=== PATIENT | male | born 1955 | race American Indian/Alaskan Native ===

== ENCOUNTER 2018-01-02 17:45 | Inpatient (IN) | payer OTHER ==
[2018-01-02 18:18] LABS: Anisocytosis Slight; Basophils % (A) 0 %; Eosinophils # (A) 1.1 k/uL (0-0.7); Eosinophils % (A) 12 %; HCT 25.8 % (39.0-53.0); HGB 8.1 gm/dL (13.0-17.5); Hypochromasia Moderate; Lymphocytes # (A) 1.3 k/uL (1.0-4.8); Lymphocytes % (A) 15 %; MCH 27.3 pg (25.0-35.0); MCHC 31.2 g/dL (31.0-37.0); MCV 87.5 fL (80.0-100.0); Mean Platelet Volume 10.1; Monocytes # (A) 0.7 k/uL (0-1.0); Monocytes % (A) 8 %; Neutrophils # (A) 5.4 k/uL (1.3-7.7); Neutrophils % (A) 63 %; Platelet Count 124 k/uL (150-450); RBC 2.95 m/uL (4.30-5.90); RDW 16.3 % (11.5-15.5); WBC 8.7 k/uL (3.8-10.6)
[2018-01-02 18:28] LABS: Albumin 3.1 g/dL (3.5-5.0); Total Bilirubin 0.2 mg/dL (0.2-1.3)
--- NOTE | 2018-01-02 18:33 | ED ---
Recheck HPI - General Chief Complaint: Recheck/Abnormal Lab/Rx Stated Complaint: Abnormal Labs Time Seen by Provider: 01/02/18 18:21 Source: patient Mode of arrival: ambulatory Limitations: no limitations - History of Present Illness Initial Comments: Is a 62-year-old male with a history of hypertension or presents emergency department for abnormal lab work. The patient states that he had laboratory performed yesterday and was called today because he had a high potassium. The patient states that he has had worsening lower extremity edema over the last few weeks to months. He states that the lower chrie edema is chronic however feels like it is getting worse. He does admit to some difficulty with urination and a slowed and delayed stream. He states that he is urinating however. He has been compliant with his medications. He denies any chest pain or shortness of breath. No lightheadedness. No palpitations. No other acute complaints at this time. - Related Data Allergies Allergy/AdvReac Type Severity Reaction Status Date / Time No Known Allergies Allergy Verified 01/02/18 19:24 Review of Systems ROS Statement: Those systems with pertinent positive or pertinent negative responses have been documented in the HPI. ROS Other: All systems not noted in ROS Statement are negative. Past Medical History Past Medical History: Hypertension Past Surgical History: No Surgical Hx Reported Smoking Status: Former smoker Past Alcohol Use History: Occasional General Exam - General Exam Comments Initial Comments: Constitutional: Awake alert Appears comfortable Head: Normocephalic atraumatic Eyes: no conjunctival injection No scleral icterus EOMI Neck: No JVD Supple Heart: Regular rate rhythm normal S1-S2 no murmurs Lungs: Clear to auscultation bilaterally No wheezing No rales Abdomen: Soft nondistended nontender Extremities: Lower extremity has pitting edema up to the knee, left lower extremity has mild pitting edema however is less then the right DP pulses intact Radial pulses intact Neuro: A&Ox3 No focal neurologic deficits Psych: Appropriate mood and affect Limitations: no limitations Course Vital Signs 01/02/18 01/02/18 17:46 19:15 Temperature 97.3 F L Pulse Rate 61 68 Respiratory 18 20 Rate Blood Pressure 142/69 139/65 O2 Sat by Pulse 99 99 Oximetry Medical Decision Making - Medical Decision Making Is a 62-year-old male who came in for elevated potassium. Repeat blood work showed a potassium 6.2 and a creatinine of 7. No baseline is noted. The patient does have lower chrie edema however had negative Dopplers this morning. The patient does have evidence for hyperkalemia on his EKG. He has some peaking of his T waves. Otherwise no other findings on his EKG. Patient was given calcium, insulin, and D50. I spoke with Dr. Bains about the patient and he accepts the admission. I did send out urine studies and also put in a ultrasound of the kidneys per Dr. Bains''s request. He also requested that nephrology be placed on consult. - Lab Data Result diagrams: 01/02/18 18:04 01/02/18 18:04 Lab Results 01/02/18 01/02/18 01/02/18 Range/Units 18:04 18:04 18:04 WBC 8.7 (3.8-10.6) k/uL RBC 2.95 L (4.30-5.90) m/uL Hgb 8.1 L (13.0-17.5) gm/dL Hct 25.8 L (39.0-53.0) % MCV 87.5 (80.0-100.0) fL MCH 27.3 (25.0-35.0) pg MCHC 31.2 (31.0-37.0) g/dL RDW 16.3 H (11.5-15.5) % Plt Count 124 L (150-450) k/uL Neutrophils % 63 % Lymphocytes % 15 % Monocytes % 8 % Eosinophils % 12 % Basophils % 0 % Neutrophils # 5.4 (1.3-7.7) k/uL Lymphocytes # 1.3 (1.0-4.8) k/uL Monocytes # 0.7 (0-1.0) k/uL Eosinophils # 1.1 H (0-0.7) k/uL Basophils # 0.0 (0-0.2) k/uL Hypochromasia Moderate Anisocytosis Slight VBG pH (7.31-7.41) VBG pCO2 (37-51) mmHg VBG HCO3 (24-28) mmol/L Sodium 143 (137-145) mmol/L Potassium 6.2 H* (3.5-5.1) mmol/L Chloride 112 H (98-107) mmol/L Carbon Dioxide 12 L (22-30) mmol/L Anion Gap 19 mmol/L BUN 115 H* (9-20) mg/dL Creatinine 7.36 H* (0.66-1.25) mg/dL Est GFR (CKD-EPI)AfAm 8 (>60 ml/min/1.73 sqM) Est GFR (CKD-EPI)NonAf 7 (>60 ml/min/1.73 sqM) Glucose 110 H (74-99) mg/dL Calcium 6.2 L* (8.4-10.2) mg/dL Magnesium 2.7 H (1.6-2.3) mg/dL Total Bilirubin 0.2 (0.2-1.3) mg/dL AST 26 (17-59) U/L ALT 37 (21-72) U/L Alkaline Phosphatase 113 (38-126) U/L Total Protein 5.0 L (6.3-8.2) g/dL Albumin 3.1 L (3.5-5.0) g/dL 01/02/18 Range/Units 19:05 WBC (3.8-10.6) k/uL RBC (4.30-5.90) m/uL Hgb (13.0-17.5) gm/dL Hct (39.0-53.0) % MCV (80.0-100.0) fL MCH (25.0-35.0) pg MCHC (31.0-37.0) g/dL RDW (11.5-15.5) % Plt Count (150-450) k/uL Neutrophils % % Lymphocytes % % Monocytes % % Eosinophils % % Basophils % % Neutrophils # (1.3-7.7) k/uL Lymphocytes # (1.0-4.8) k/uL Monocytes # (0-1.0) k/uL Eosinophils # (0-0.7) k/uL Basophils # (0-0.2) k/uL Hypochromasia Anisocytosis VBG pH 7.19 L* (7.31-7.41) VBG pCO2 36 L (37-51) mmHg VBG HCO3 13 L (24-28) mmol/L Sodium (137-145) mmol/L Potassium (3.5-5.1) mmol/L Chloride (98-107) mmol/L Carbon Dioxide (22-30) mmol/L Anion Gap mmol/L BUN (9-20) mg/dL Creatinine (0.66-1.25) mg/dL Est GFR (CKD-EPI)AfAm (>60 ml/min/1.73 sqM) Est GFR (CKD-EPI)NonAf (>60 ml/min/1.73 sqM) Glucose (74-99) mg/dL Calcium (8.4-10.2) mg/dL Magnesium (1.6-2.3) mg/dL Total Bilirubin (0.2-1.3) mg/dL AST (17-59) U/L ALT (21-72) U/L Alkaline Phosphatase (38-126) U/L Total Protein (6.3-8.2) g/dL Albumin (3.5-5.0) g/dL Disposition Clinical Impression: Acute renal failure, Hyperkalemia, Hypocalcemia Disposition: ADMITTED IP TO THIS [facility] Condition: Stable
[2018-01-02 18:40] LABS: Potassium 6.2 mmol/L (3.5-5.1)
[2018-01-02 18:41] LABS: Calcium 6.2 mg/dL (8.4-10.2)
[2018-01-02] MEDS ORDERED: CALCIUM GLUCONATE 1,000 MG in SODIUM CHLORIDE 0.9% 100 ML IVPB ONE (18:46)
[2018-01-02] MEDS ORDERED: DEXTROSE 50%-WATER 50 ML SYRINGE IVP STA ×2 (18:46→20:38)
[2018-01-02] MEDS ORDERED: INSULIN REGULAR 100 UNIT/ML VIAL IV ONE (18:46)
[2018-01-02] MEDS ORDERED: NALOXONE 0.4 MG/ML 1 ML VIAL IV PRN (19:11)
[2018-01-02] MEDS: SODIUM CHLORIDE 0.9% 1,000 ML IV SCH (19:15)
[2018-01-02 19:20] LABS: VBG PH 7.19 (7.31-7.41)
[2018-01-02 19:42] LABS: Appearance,Urine Clear (Clear); Bacteria,Urine Rare /hpf; Bilirubin,Urine Negative (Negative); Blood,Urine Small (Negative); Color,Urine Light Yellow; Glucose,Urine (UA) Negative (Negative); Ketones,Urine Negative (Negative); Leukocyte Esterase,Urine Negative (Negative); Nitrite,Urine Negative (Negative); PH, Urine 5.5 (5.0-8.0); Protein,Urine 3+ (Negative); RBC,Urine 8 /hpf (0-5); Specific Gravity,Urine 1.008 (1.001-1.035); Urobilinogen,Urine <2.0 mg/dL (<2.0); WBC,Urine 4 /hpf (0-5)
[2018-01-02 19:49] LABS: Creatinine,Urine Random 62.7 mg/dL
--- NOTE | 2018-01-02 20:54 | US ---
EXAMINATION TYPE: US kidneys/renal and bladder DATE OF EXAM: 01/02/2018 COMPARISON: NONE CLINICAL HISTORY: Pain. Abnormal labs. Exam limited due to body habitus and barrel chested. EXAM MEASUREMENTS: Right Kidney: 9.5 x 4.8 x 5.4 cm Left Kidney: 9.1 x 4.6 x 5.2 cm Right Kidney: Anechoic area seen mid pole measuring .9 x .8 x 1.3cm. Left Kidney: Anechoic area seen lower pole measuring 2.3 x 2.3 x 2.2 cm Bladder: Anechoic not fully distended. Bilateral Jets seen: No There is no evidence for hydronephrosis at this point in time. No nephrolithiasis is seen. The urin leonides bladder is anechoic. IMPRESSION: No acute process.
[2018-01-02 21:09] LABS: Glucose,Whole Blood 145 mg/dL (75-99)
[2018-01-02 21:09] LABS: Glucose,Whole Blood 40 mg/dL (75-99)
[2018-01-02 21:40] LABS: Glucose,Whole Blood 112 mg/dL (75-99)
[2018-01-02] MEDS: METOPROLOL TARTRATE 50 MG TAB PO SCH (22:00)
[2018-01-03 06:11] LABS: Anisocytosis Slight; Basophils % (A) 0 %; Eosinophils # (A) 1.1 k/uL (0-0.7); Eosinophils % (A) 13 %; HCT 24.5 % (39.0-53.0); HGB 7.4 gm/dL (13.0-17.5); Hypochromasia Moderate; Lymphocytes % (A) 11 %; MCH 26.8 pg (25.0-35.0); MCHC 30.2 g/dL (31.0-37.0); MCV 88.9 fL (80.0-100.0); Mean Platelet Volume 9.2; Monocytes # (A) 0.6 k/uL (0-1.0); Monocytes % (A) 6 %; Neutrophils # (A) 5.8 k/uL (1.3-7.7); Neutrophils % (A) 67 %; Platelet Count 113 k/uL (150-450); RBC 2.75 m/uL (4.30-5.90); RDW 16.3 % (11.5-15.5); WBC 8.6 k/uL (3.8-10.6)
[2018-01-03] MEDS: SODIUM CHLORIDE 0.9% 1,000 ML IV SCH (06:24)
[2018-01-03 06:29] LABS: Magnesium 2.4 mg/dL (1.6-2.3)
[2018-01-03 06:51] LABS: Calcium 5.7 mg/dL (8.4-10.2); Phosphorus 9.1 mg/dL (2.5-4.5)
[2018-01-03] MEDS ORDERED: SODIUM POLYSTYRENE SULFONATE 15 GM/60 ML BOTTLE PO STA (06:58)
[2018-01-03] MEDS ORDERED: DEXTROSE 50%-WATER 50 ML SYRINGE IVP STA (06:58)
[2018-01-03] MEDS ORDERED: CALCIUM GLUCONATE 2,000 MG in SODIUM CHLORIDE 0.9% 100 ML IVPB ONE (06:58)
[2018-01-03] MEDS ORDERED: INSULIN REGULAR 100 UNIT/ML VIAL IV ONE (06:58)
[2018-01-03] MEDS ORDERED: ALBUTEROL NEBULIZED (CONC) 20 MG, SODIUM CHLORIDE 0.9% NEBULIZ 3 ML INHALATION ONE ×2 (06:59)
[2018-01-03] MEDS ORDERED: DEXTROSE 5% IN WATER 1,000 ML with SODIUM BICARB (1 MEQ/ML) 100 ML IV SCH (07:00)
[2018-01-03 08:16] LABS: Glucose,Whole Blood 100 mg/dL (75-99)
[2018-01-03 08:21] LABS: Glucose,Whole Blood 94 mg/dL (75-99)
--- NOTE | 2018-01-03 08:54 | P.CNPUL ---
History of Present Illness Consult date: 01/03/18 Requesting physician: Estrellita Bains Reason for consult: other Chief complaint: Increased peripheral edema, hyperkalemia, acute renal failure History of present illness: Mr. Toscano is a 62-year-old male patient Dr. Bains, who presented to the emergency department on 01/02/2018 at 1745 with complaints of increasing bilateral lower extremity edema, decreased urination. Patient had lab work performed yesterday and was called with critically high potassium, was directed to the emergency department. Patient had seen Dr. Bains on an outpatient basis for concerns of his increased lower extremity edema, and was given Lasix, however his swelling getting worse. Has a past medical history of hypertension and the patient is on metoprolol, losartan, and Norvasc. Denies any history of diabetes. Denies any history of lower urinary tract obstruction. He states in the past his been told he has renal insufficiency. He is an ex-smoker, quit 2 weeks ago, carries [id number] smoking history. Denies any nausea vomiting or diarrhea. Denies any chest pain or shortness of breath. Lab work showed the BCC of 8.7, hemoglobin of 8.1, sodium 143, potassium 6.2, chloride is 112, carbon dioxide was 12, BUN was 115, creatinine is 7.36. Serum osmolality is 345 , urine osmolality was 347, urine random creatinine was 62.7, and urine sodium was 80. Patient was given calcium gluconate, amp of D50, 10 units of Regular Insulin, and Kayexalate. Repeat blood work showed persistently elevated potassium of 7.0, BUN of 114, and creatinine of 7.0. Patient will be treated again with amp of calcium gluconate, D50, regular insulin, and Kayexalate. Maintenance IV fluids as D5W with 2 A of bicarb at a rate of 125 ML per hour. He is awake, alert, denies any acute distress. His son is at the bedside, and is assisting with patient's history, as well as some translation from Faroese. Patient does speak Swedish and only needs some limited assistance with the translation. Review of Systems All systems: negative Constitutional: Denies chills, Denies fever Eyes: right loss of vision (History of glaucoma), denies blurred vision, denies pain Ears, nose, mouth and throat: Denies headache, Denies sore throat Cardiovascular: Reports edema, Reports leg edema, Denies chest pain, Denies shortness of breath Respiratory: Denies cough Gastrointestinal: Denies abdominal pain, Denies diarrhea, Denies nausea, Denies vomiting Musculoskeletal: Denies myalgias Integumentary: Denies pruritus, Denies rash Neurological: Denies numbness, Denies weakness Psychiatric: Denies anxiety, Denies depression Endocrine: Denies fatigue, Denies weight change Past Medical History Past Medical History: GI Bleed, Hypertension Additional Past Medical History / Comment(s): History of H. pylori infection, and gastric ulcers, back in 1991 and the patient had been treated with triple antibiotics. Glaucoma in the right eye Past Surgical History: No Surgical Hx Reported Smoking Status: Former smoker Past Alcohol Use History: Occasional Medications and Allergies Home Medications Medication Instructions Recorded Confirmed Type Aspirin EC [Ecotrin Low Dose] 81 mg PO DAILY 01/02/18 01/02/18 History Furosemide [Lasix] 40 mg PO DAILY 01/02/18 01/02/18 History Losartan Potassium 100 mg PO DAILY 01/02/18 01/02/18 History Metoprolol Tartrate [Lopressor] 50 mg PO BID 01/02/18 01/02/18 History Ranitidine HCl [Zantac] 75 mg PO DAILY PRN 01/02/18 01/02/18 History amLODIPine BESYLATE [Norvasc] 10 mg PO DAILY 01/02/18 01/02/18 History Allergies Allergy/AdvReac Type Severity Reaction Status Date / Time No Known Allergies Allergy Verified 01/02/18 19:24 Physical Exam Vitals: Vital Signs Temp Pulse Pulse Resp BP BP Pulse Ox 01/03/18 04:00 98.5 F 58 L 16 144/67 98 01/03/18 03:48 98.5 F 58 L 16 144/67 98 01/02/18 22:00 59 L 20 122/56 99 01/02/18 20:47 60 20 96/55 97 01/02/18 20:40 72 20 138/64 96 01/02/18 19:15 68 20 139/65 99 01/02/18 17:46 97.3 F L 61 18 142/69 99 Intake and Output 01/02/18 01/03/18 01/03/18 22:59 06:59 14:59 Intake Total 800 Output Total 200 Balance 800 -200 Intake: IV 800 Calcium Gluconate 1,000 800 mg In Sodium Chloride 0.9 % 100 ml @ 100 mls/hr IVPB ONCE ONE Rx#: [id number] Output: Urine 200 Other: Voiding Method Urinal # Voids 2 Weight 87.997 kg - Constitutional General appearance: average body habitus, no acute distress - EENT Eyes: PERRLA, dentition normal, normal appearance ENT: NA/AT, normal oropharynx Ears: bilateral: normal - Neck Neck: no lymphadenopathy, normal ROM Carotids: bilateral: upstroke normal Thyroid: bilateral: normal size - Respiratory Respiratory: bilateral: CTA - Cardiovascular Rhythm: regular Heart sounds: normal: S1, S2 leg Peripheral Edema: bilateral: 1+ dorsalis pedis Peripheral Pulses: bilateral: Normal radial pulse Peripheral Pulses: bilateral: Normal - Gastrointestinal General gastrointestinal: no organomegaly, soft, no tenderness - Integumentary Integumentary: normal - Neurologic Neurologic: CNII-XII intact - Musculoskeletal Musculoskeletal: gait normal, strength equal bilaterally - Psychiatric Psychiatric: A&O x's 3, appropriate affect, intact judgment & insight Results - Laboratory Findings CBC and BMP: 01/03/18 05:34 01/03/18 05:34 Abnormal lab findings: Abnormal Labs 01/02/18 01/02/18 01/02/18 18:04 18:04 18:04 RBC 2.95 L Hgb 8.1 L Hct 25.8 L MCHC RDW 16.3 H Plt Count 124 L Eosinophils # 1.1 H VBG pH VBG pCO2 VBG HCO3 Potassium 6.2 H* Chloride 112 H Carbon Dioxide 12 L BUN 115 H* Creatinine 7.36 H* Glucose 110 H POC Glucose (mg/dL) Osmolality Calcium 6.2 L* Phosphorus Magnesium 2.7 H Total Protein 5.0 L Albumin 3.1 L Urine Protein Urine Blood Urine RBC Urine Bacteria 01/02/18 01/02/18 01/02/18 19:05 19:05 19:05 RBC Hgb Hct MCHC RDW Plt Count Eosinophils # VBG pH 7.19 L* VBG pCO2 36 L VBG HCO3 13 L Potassium Chloride Carbon Dioxide BUN Creatinine Glucose POC Glucose (mg/dL) Osmolality 345 H* Calcium Phosphorus Magnesium Total Protein Albumin Urine Protein 3+ H Urine Blood Small H Urine RBC 8 H Urine Bacteria Rare H 01/02/18 01/02/18 01/02/18 20:36 20:54 21:37 RBC Hgb Hct MCHC RDW Plt Count Eosinophils # VBG pH VBG pCO2 VBG HCO3 Potassium Chloride Carbon Dioxide BUN Creatinine Glucose POC Glucose (mg/dL) 40 L 145 H 112 H Osmolality Calcium Phosphorus Magnesium Total Protein Albumin Urine Protein Urine Blood Urine RBC Urine Bacteria 01/03/18 01/03/18 01/03/18 05:34 05:34 08:14 RBC 2.75 L Hgb 7.4 L Hct 24.5 L MCHC 30.2 L RDW 16.3 H Plt Count 113 L Eosinophils # 1.1 H VBG pH VBG pCO2 VBG HCO3 Potassium 7.0 H* Chloride 114 H Carbon Dioxide 12 L BUN 114 H* Creatinine 7.00 H* Glucose POC Glucose (mg/dL) 100 H Osmolality Calcium 5.7 L* Phosphorus 9.1 H* Magnesium 2.4 H Total Protein Albumin Urine Protein Urine Blood Urine RBC Urine Bacteria - Diagnostic Findings Additional studies: Twelve-lead EKG reviewed, ultrasound of the abdomen reviewed Assessment and Plan Plan: Assessment: #1. Acute on chronic renal failure, possibly related to ATN. Patient has chronic kidney disease, although his baseline kidney function is unknown #2. Acute hyperkalemia, hyperphosphatemia and hypokalemia secondary to the above #3. Essential hypertension #4. Acute metabolic acidosis secondary to acute renal failure #5. Anemia of chronic kidney disease #6. Glaucoma in the right eye #7. Chronic lower extremity swelling, likely secondary to calcium channel keena #8. Nicotine dependence, currently in remission, quit 2 weeks ago, carries 20- pack-year smoking history #9. History of peptic ulcer disease, secondary to H. pylori infection in 1991, he was treated with antibiotics Plan: Nephrology has been consulted, patient has been treated with calcium gluconate, D50, regular insulin, and Kayexalate. We'll recheck electrolytes and potassium in 4 hours. Patient was transferred to the intensive care for closer monitoring. Currently denies any distress. Monitor for EKG changes, urine output, vital signs. I performed a history & physical examination of the patient and discussed their management with my nurse practitioner, Jessica Batista. I reviewed the nurse practitioner's note and agree with the documented findings and plan of care. Lung sounds are clear. The findings and the impression was discussed with the patient. I attest to the documentation by the nurse practitioner. Time with Patient: Greater than 30
[2018-01-03] MEDS: amLODIPine 10 MG TAB PO SCH (09:35)
[2018-01-03] MEDS: METOPROLOL TARTRATE 50 MG TAB PO SCH ×2 (09:35→20:19)
[2018-01-03] MEDS: BRIMONIDINE TARTRATE 0.2% DROPS 5 ML BTL RIGHT EYE SCH (09:36)
--- NOTE | 2018-01-03 09:50 | P.NPCON ---
History of Present Illness - Reason for Consult acute renal failure, hyperkalemia - History of Present Illness Reason for consultation: Acute kidney injury and hyperkalemia History of present illness: Patient is a 62-year-old male seen in renal consultation for acute kidney injury and hyperkalemia. Patient states he had blood work done yesterday and was advised to what the hospital due to hyperkalemia. His potassium level was 6.2 on admission and is up to 7.0 this morning. His creatinine was 7.36 on admission and is down to 7.0 today. He is also noted to be severely acidotic with bicarb level of 12. I do note that the patient was taking Lasix as well as losartan at home. No significant hypotension except for one reading of 96/ 55. Patient states his appetite has been fair except he has any much the last 2 days. He also noticed decrease in his urinary stream. He denies hematuria but states he's been told about blood in his urine in the past. He did receive Kayexalate along with IV insulin and nebulized albuterol for hyperkalemia. He has also received IV calcium gluconate. Renal ultrasound revealed no evidence of hydronephrosis. A Giordano catheter was placed and 150 mL of urine was obtained in about 30 minutes. He denies using NSAIDs. No vomiting or diarrhea. Denies chest pain or shortness of breath. States he's been having swelling in his legs for which he was prescribed Lasix. No history of diabetes. Denies family history of renal disease. Vital signs are stable. General: The patient appeared well nourished and normally developed. HEENT: Head exam is unremarkable. Neck is without jugular venous distension. LUNGS: Lungs are clear to auscultation and percussion. Breath sounds decreased. HEART: Rate and Rhythm are regular. First and second heart sounds normal. No murmurs, rubs or gallops. ABDOMEN: Abdominal exam reveals normal bowel sounds. Non-tender and non- distended. No evidence of peritonitis. EXTREMITITES: 1+ edema. Past Medical History Past Medical History: GI Bleed, Hypertension Additional Past Medical History / Comment(s): History of H. pylori infection, and gastric ulcers, back in 1991 and the patient had been treated with triple antibiotics. Glaucoma in the right eye Past Surgical History: No Surgical Hx Reported Smoking Status: Former smoker Past Alcohol Use History: Occasional Medications and Allergies Home Medications Medication Instructions Recorded Confirmed Type Aspirin EC [Ecotrin Low Dose] 81 mg PO DAILY 01/02/18 01/02/18 History Furosemide [Lasix] 40 mg PO DAILY 01/02/18 01/02/18 History Losartan Potassium 100 mg PO DAILY 01/02/18 01/02/18 History Metoprolol Tartrate [Lopressor] 50 mg PO BID 01/02/18 01/02/18 History Ranitidine HCl [Zantac] 75 mg PO DAILY PRN 01/02/18 01/02/18 History amLODIPine BESYLATE [Norvasc] 10 mg PO DAILY 01/02/18 01/02/18 History Allergies Allergy/AdvReac Type Severity Reaction Status Date / Time No Known Allergies Allergy Verified 01/02/18 19:24 Physical Exam Vitals: Vital Signs Temp Pulse Pulse Resp BP BP Pulse Ox 01/03/18 09:00 68 01/03/18 08:42 67 01/03/18 04:00 98.5 F 58 L 16 144/67 98 01/03/18 03:48 98.5 F 58 L 16 144/67 98 01/02/18 22:00 59 L 20 122/56 99 01/02/18 20:47 60 20 96/55 97 01/02/18 20:40 72 20 138/64 96 01/02/18 19:15 68 20 139/65 99 01/02/18 17:46 97.3 F L 61 18 142/69 99 Intake and Output 01/02/18 01/03/18 01/03/18 22:59 06:59 14:59 Intake Total 800 Output Total 200 Balance 800 -200 Intake: IV 800 Calcium Gluconate 1,000 800 mg In Sodium Chloride 0.9 % 100 ml @ 100 mls/hr IVPB ONCE ONE Rx#: [id number] Output: Urine 200 Other: Voiding Method Urinal # Voids 2 Weight 87.997 kg Results - Lab Results Most recent lab results Calcium 5.7 mg/dL (8.4-10.2) L* 01/03/18 05:34 Phosphorus 9.1 mg/dL (2.5-4.5) H* 01/03/18 05:34 Magnesium 2.4 mg/dL (1.6-2.3) H 01/03/18 05:34 01/03/18 05:34 01/03/18 05:34 Assessment and Plan Plan: Assessment: #1. Nonoliguric acute kidney injury secondary to ATN. Also appears to be a component of urinary retention. Creatinine was 7.36 on admission and is down to 7.0 today. Patient states he's been told about blood in his urine for the last several years. Urinalysis reveals proteinuria as well as hematuria - will need to rule out GN. No evidence of hydronephrosis noted on renal ultrasound. #2. Urinary retention status post Giordano catheter placement. 150 mL of urine was obtained within 30 minutes of Giordano catheter placement. #3. Hyperkalemia secondary to acute kidney injury and metabolic acidosis further worsened with the use of losartan. #4. Anemia. Rule out iron deficiency. #5. Rule out chronic kidney disease. Unknown as to what his baseline renal function is. #6. Metabolic acidosis secondary to acute kidney injury. #7. Hyperphosphatemia secondary to acute kidney injury. #8. Hypocalcemia secondary to acute kidney injury. Plan: Start isotonic sodium bicarbonate drip to be run at 125 mL an hour. Patient received 2 g of IV calcium gluconate along with IV insulin and nebulized albuterol this morning. He also received Kayexalate. Low potassium diet. Repeat electrolytes at 12:30 PM today. Maintain Giordano catheter. Strict is and os. Check iron studies. Add PhosLo. Quantify proteinuria. Check serologies. I did discuss with the patient and his son the potential need for renal replacement therapy if no improvement in his renal function in the next 24-48 hours. Thank you for the consultation. I will continue to follow the patient with you during his hospital stay.
[2018-01-03] MEDS: DEXTROSE 5% IN WATER 1,000 ML with SODIUM BICARB (1 MEQ/ML) 150 ML IV SCH ×2 (10:14→20:17)
[2018-01-03] MEDS: CALCIUM ACETATE 667 MG CAP PO SCH ×2 (12:33→17:55)
[2018-01-03 12:56] LABS: Magnesium 2.4 mg/dL (1.6-2.3); Phosphorus 7.8 mg/dL (2.5-4.5); Potassium 5.6 mmol/L (3.5-5.1)
[2018-01-03 13:05] LABS: Calcium 6.3 mg/dL (8.4-10.2)
[2018-01-03 13:10] LABS: Anisocytosis Slight; Basophils % (A) 0 %; Eosinophils # (A) 0.3 k/uL (0-0.7); Eosinophils % (A) 4 %; HCT 24.1 % (39.0-53.0); HGB 7.4 gm/dL (13.0-17.5); Hypochromasia Moderate; Lymphocytes # (A) 0.5 k/uL (1.0-4.8); Lymphocytes % (A) 7 %; MCH 27.6 pg (25.0-35.0); MCHC 30.9 g/dL (31.0-37.0); MCV 89.4 fL (80.0-100.0); Mean Platelet Volume 9.2; Monocytes # (A) 0.4 k/uL (0-1.0); Monocytes % (A) 5 %; Neutrophils # (A) 6.5 k/uL (1.3-7.7); Neutrophils % (A) 83 %; Platelet Count 111 k/uL (150-450); RDW 16.3 % (11.5-15.5); WBC 7.9 k/uL (3.8-10.6)
[2018-01-03] MEDS ORDERED: CALCIUM GLUCONATE 1,000 MG in SODIUM CHLORIDE 0.9% 100 ML IVPB ONE ×2 (14:00→19:00)
--- NOTE | 2018-01-03 14:31 | P.HPIM ---
History of Present Illness H&P Date: 01/03/18 This is a 62-year-old male patient of mine with a past medical history of hypertension and hypertensive cardiovascular disease, hyperlipidemia, history of chronic kidney disease stage 2, chronic tobacco use and dependence, history of hematuria, patient was complaining of an episode of and nausea vomiting and diarrhea about 3 weeks prior to the presentation and he was trying to come and see me in the office and the patient was seen yesterday by mid care provider, and laboratory evaluation were done since the patient did not have any lab done in a while due to financial issues, patient did have laboratory evaluation the form of the CMP and his potassium came back elevated at 6.2 and his BUN was elevated as well as creatinine so he was directed to the ER at [facility] he was seen in the emergency department he was given calcium gluconate, D50 with insulin, also was given nebulized treatment, and patient also was started on Kayexalate 45 g orally 1, he was placed on sodium bicarb and it drip , because he was severely acidotic with a bicarb level of 12 his creatinine was 7.3 his potassium went up to 7.3 patient was admitted to intensive care unit, he was seen in consultation by nephrology as well as by pulmonary medicine, and the patient had a Giordano catheter in due to an element of the obstruction as well , patient is sitting up in bed is feeling okay he denies any chest pain or shortness breath he has no bowel pain, nausea, vomiting. Review of Systems Constitutional: Reports fatigue, Reports malaise, Reports weakness, Denies chronic headaches Eyes: denies blurred vision, denies bulging eye, denies decreased vision Ears: deny: decreased hearing Ears, nose, mouth and throat: Denies dysphagia, Denies nose pain, Denies swelling in throat, Denies sore throat Cardiovascular: Reports high blood pressure, Reports shortness of breath, Denies chest pain, Denies decreased exercise tolerance, Denies dyspnea on exertion, Denies paroxysmal nocturnal dyspnea, Denies rapid heart beat Respiratory: Reports cough, Denies congestion, Denies cough with sputum, Denies home oxygen, Denies respiratory infections, Denies sleep apnea, Denies snoring, Denies wheezing Gastrointestinal: Denies abdominal pain, Denies bloating, Denies heartburn, Denies hematemesis, Denies melena, Denies nausea, Denies vomiting Genitourinary: Reports hematuria, Reports nocturia, Reports polyuria, Denies dysuria Musculoskeletal: Denies myalgias Musculoskeletal: absent: ankle pain, ankle stiffness, ankle swelling, elbow pain , elbow stiffness, elbow swelling, foot pain, foot stiffness, foot swelling, hand pain, hand stiffness, hand swelling, hip pain, hip stiffness, hip swelling , knee pain, knee stiffness, knee swelling, shoulder pain, shoulder stiffness, shoulder swelling, wrist pain, wrist stiffness, wrist swelling Integumentary: Denies pruritus, Denies rash Neurological: Denies numbness, Denies weakness Psychiatric: Denies anxiety, Denies depression Endocrine: Denies fatigue, Denies weight change Past Medical History Past Medical History: COPD, GERD/Reflux, GI Bleed, Hyperlipidemia, Hypertension , Osteoarthritis (OA), Prostate Disorder Additional Past Medical History / Comment(s): Chronic lower extremity edema, decreased urinary stream lately, 1992 somach ulcer with hematemesis. History of Any Multi-Drug Resistant Organisms: None Reported Past Surgical History: No Surgical Hx Reported Additional Past Surgical History / Comment(s): EGD Past Anesthesia/Blood Transfusion Reactions: No Reported Reaction Additional Past Anesthesia/Blood Transfusion Reaction / Comment(s): Pt received blood years ago with his stomach ulcer bleed-no reaction. Smoking Status: Former smoker (patient is about 2 pack every day his now quit smoking about 2 weeks ago he smoked since he was 26-year-old.) - Past Family History Father Family Medical History: Asthma Additional Family Medical History / Comment(s): Father at the age of 64yrs. Mother Family Medical History: Myocardial Infarction ([place]) Additional Family Medical History / Comment(s): Mother had a [place] sometime prior to age 60yrs. She is 86yrs old. Brother(s) Family Medical History: No Reported History (patient has 6 brothers no major problems) Sister(s) Family Medical History: No Reported History (patient has 2 sisters no major medical problems.) Son(s) Family Medical History: No Reported History (patient has 2 sons no major medical problems) Daughter(s) Family Medical History: No Reported History (patient has one daughter no major medical problems.) Medications and Allergies Home Medications Medication Instructions Recorded Confirmed Type Aspirin EC [Ecotrin Low Dose] 81 mg PO DAILY 01/02/18 01/02/18 History Furosemide [Lasix] 40 mg PO DAILY 01/02/18 01/02/18 History Losartan Potassium 100 mg PO DAILY 01/02/18 01/02/18 History Metoprolol Tartrate [Lopressor] 50 mg PO BID 01/02/18 01/02/18 History Ranitidine HCl [Zantac] 75 mg PO DAILY PRN 01/02/18 01/02/18 History amLODIPine BESYLATE [Norvasc] 10 mg PO DAILY 01/02/18 01/02/18 History Allergies Allergy/AdvReac Type Severity Reaction Status Date / Time No Known Allergies Allergy Verified 01/02/18 19:24 Physical Exam Vitals: Vital Signs Temp Pulse Pulse Resp BP BP Pulse Ox 01/03/18 12:00 61 15 127/63 95 01/03/18 11:30 59 L 16 114/76 94 L 01/03/18 11:00 55 L 12 117/62 94 L 01/03/18 10:30 63 16 146/67 91 L 01/03/18 10:00 72 18 154/76 93 L 01/03/18 09:30 74 15 145/71 93 L 01/03/18 09:00 76 16 140/70 99 01/03/18 08:42 67 01/03/18 08:30 97.7 F 71 16 176/73 95 01/03/18 04:00 98.5 F 58 L 16 144/67 98 01/03/18 03:48 98.5 F 58 L 16 144/67 98 01/02/18 22:00 59 L 20 122/56 99 01/02/18 20:47 60 20 96/55 97 01/02/18 20:40 72 20 138/64 96 01/02/18 19:15 68 20 139/65 99 01/02/18 17:46 97.3 F L 61 18 142/69 99 Intake and Output 01/02/18 01/03/18 01/03/18 22:59 06:59 14:59 Intake Total 800 840 Output Total 625 Balance 800 215 Intake: IV 800 600 Calcium Gluconate 1,000 800 100 mg In Sodium Chloride 0.9 % 100 ml @ 100 mls/hr IVPB ONCE ONE Rx#: [id number] Dextrose 5% in Water 1, 500 000 ml @ 125 mls/hr IV . Q8H48M FENG with Sodium Bicarb (1 Meq/ml) 100 ml Rx#:[id number] Oral 240 Output: Urine 625 Other: Voiding Method Urinal Indwelling Catheter # Voids 2 Weight 87.997 kg - Constitutional General appearance: average body habitus, no acute distress - EENT Eyes: anicteric sclerae, EOMI, PERRLA, dentition normal, no ptosis, no scleral icterus, normal appearance ENT: hearing grossly normal, NA/AT, normal oropharynx, no thrush Ears: bilateral: normal - Neck Neck: no lymphadenopathy, normal ROM, no rigidity, no stridor, no thyromegaly Carotids: bilateral: upstroke normal Thyroid: bilateral: normal size - Respiratory Respiratory: bilateral: diminished, negative: dullness, rales, rhonchi, wheezing , prolonged expiration - Cardiovascular Rhythm: regular Heart sounds: normal: S1, S2 Abnormal Heart Sounds: systolic murmur, no S3 Gallop, no S4 Gallop - Gastrointestinal General gastrointestinal: normal bowel sounds, soft, no splenomegaly, no tenderness, no umbilical hernia, no ventral hernia - Integumentary Integumentary: normal, normal turgor - Neurologic Neurologic: CNII-XII intact - Musculoskeletal Musculoskeletal: generalized weakness, strength equal bilaterally - Psychiatric Psychiatric: A&O x's 3, appropriate affect, intact judgment & insight Results CBC & Chem 7: 01/03/18 12:16 01/03/18 12:16 Labs: Abnormal Lab Results - Last 24 Hours (Table) 01/02/18 01/02/18 01/02/18 Range/Units 18:04 18:04 18:04 RBC 2.95 L (4.30-5.90) m/uL Hgb 8.1 L (13.0-17.5) gm/dL Hct 25.8 L (39.0-53.0) % MCHC (31.0-37.0) g/dL RDW 16.3 H (11.5-15.5) % Plt Count 124 L (150-450) k/uL Eosinophils # 1.1 H (0-0.7) k/uL VBG pH (7.31-7.41) VBG pCO2 (37-51) mmHg VBG HCO3 (24-28) mmol/L Potassium 6.2 H* (3.5-5.1) mmol/L Chloride 112 H (98-107) mmol/L Carbon Dioxide 12 L (22-30) mmol/L BUN 115 H* (9-20) mg/dL Creatinine 7.36 H* (0.66-1.25) mg/dL Glucose 110 H (74-99) mg/dL POC Glucose (mg/dL) (75-99) mg/dL Osmolality (280-301) mosm/kg Calcium 6.2 L* (8.4-10.2) mg/dL Phosphorus (2.5-4.5) mg/dL Magnesium 2.7 H (1.6-2.3) mg/dL Total Protein 5.0 L (6.3-8.2) g/dL Albumin 3.1 L (3.5-5.0) g/dL Urine Protein (Negative) Urine Blood (Negative) Urine RBC (0-5) /hpf Urine Bacteria (None) /hpf 01/02/18 01/02/18 01/02/18 Range/Units 19:05 19:05 19:05 RBC (4.30-5.90) m/uL Hgb (13.0-17.5) gm/dL Hct (39.0-53.0) % MCHC (31.0-37.0) g/dL RDW (11.5-15.5) % Plt Count (150-450) k/uL Eosinophils # (0-0.7) k/uL VBG pH 7.19 L* (7.31-7.41) VBG pCO2 36 L (37-51) mmHg VBG HCO3 13 L (24-28) mmol/L Potassium (3.5-5.1) mmol/L Chloride (98-107) mmol/L Carbon Dioxide (22-30) mmol/L BUN (9-20) mg/dL Creatinine (0.66-1.25) mg/dL Glucose (74-99) mg/dL POC Glucose (mg/dL) (75-99) mg/dL Osmolality 345 H* (280-301) mosm/kg Calcium (8.4-10.2) mg/dL Phosphorus (2.5-4.5) mg/dL Magnesium (1.6-2.3) mg/dL Total Protein (6.3-8.2) g/dL Albumin (3.5-5.0) g/dL Urine Protein 3+ H (Negative) Urine Blood Small H (Negative) Urine RBC 8 H (0-5) /hpf Urine Bacteria Rare H (None) /hpf 01/02/18 01/02/18 01/02/18 Range/Units 20:36 20:54 21:37 RBC (4.30-5.90) m/uL Hgb (13.0-17.5) gm/dL Hct (39.0-53.0) % MCHC (31.0-37.0) g/dL RDW (11.5-15.5) % Plt Count (150-450) k/uL Eosinophils # (0-0.7) k/uL VBG pH (7.31-7.41) VBG pCO2 (37-51) mmHg VBG HCO3 (24-28) mmol/L Potassium (3.5-5.1) mmol/L Chloride (98-107) mmol/L Carbon Dioxide (22-30) mmol/L BUN (9-20) mg/dL Creatinine (0.66-1.25) mg/dL Glucose (74-99) mg/dL POC Glucose (mg/dL) 40 L 145 H 112 H (75-99) mg/dL Osmolality (280-301) mosm/kg Calcium (8.4-10.2) mg/dL Phosphorus (2.5-4.5) mg/dL Magnesium (1.6-2.3) mg/dL Total Protein (6.3-8.2) g/dL Albumin (3.5-5.0) g/dL Urine Protein (Negative) Urine Blood (Negative) Urine RBC (0-5) /hpf Urine Bacteria (None) /hpf 01/03/18 01/03/18 01/03/18 Range/Units 05:34 05:34 08:14 RBC 2.75 L (4.30-5.90) m/uL Hgb 7.4 L (13.0-17.5) gm/dL Hct 24.5 L (39.0-53.0) % MCHC 30.2 L (31.0-37.0) g/dL RDW 16.3 H (11.5-15.5) % Plt Count 113 L (150-450) k/uL Eosinophils # 1.1 H (0-0.7) k/uL VBG pH (7.31-7.41) VBG pCO2 (37-51) mmHg VBG HCO3 (24-28) mmol/L Potassium 7.0 H* (3.5-5.1) mmol/L Chloride 114 H (98-107) mmol/L Carbon Dioxide 12 L (22-30) mmol/L BUN 114 H* (9-20) mg/dL Creatinine 7.00 H* (0.66-1.25) mg/dL Glucose (74-99) mg/dL POC Glucose (mg/dL) 100 H (75-99) mg/dL Osmolality (280-301) mosm/kg Calcium 5.7 L* (8.4-10.2) mg/dL Phosphorus 9.1 H* (2.5-4.5) mg/dL Magnesium 2.4 H (1.6-2.3) mg/dL Total Protein (6.3-8.2) g/dL Albumin (3.5-5.0) g/dL Urine Protein (Negative) Urine Blood (Negative) Urine RBC (0-5) /hpf Urine Bacteria (None) /hpf Thrombosis Risk Factor Assmnt - DVT/VTE Prophylaxis DVT/VTE Prophylaxis: Mechanical Prophylaxis ordered - Choose All That Apply Any of the Below Risk Factors Present?: Yes Each Factor Represents 1 point: Obesity (BMI >25) Other Risk Factors: Yes Each Risk Factor Represents 2 Points: Age 61-74 years Other congenital or acquired thrombophilia - If yes, enter type in comment: No Thrombosis Risk Factor Assessment Total Risk Factor Score: 3 Thrombosis Risk Factor Assessment Level: Moderate Risk Assessment and Plan Assessment: Assessment and plan: 1. Acute kidney injury and top of chronic kidney disease stage II secondary to acute tubular necrosis. Patient was started on IV bicarbonate drip, patient did receive Kayexalate 45 g orally 1, we'll repeat his potassium level again patient does have hematuria and proteinuria, and he appears to be anemic at 7.4 , patient would need to be monitored very closely he was started already on PhosLo for hyperphosphatemia he was given calcium gluconate as well for cardiac protection, he may need to have a renal replacement therapy if no response in the next 48 hours. 2. Hyperkalemia secondary to acute kidney injury. Patient did receive Kayexalate 45 g orally 1, calcium gluconate 2 g IV, D50 with insulin, albuterol nebulized treatment. 3. Hypocalcemia due to acute kidney injury. Status post calcium gluconate. 4. Hyperphosphatemia. Continue the patient on PhosLo as ordered by nephrology. 5. Hypertension and hypertensive cardiovascular disease. Discontinue losartan and Lasix, continue metoprolol 50 grams orally twice every day as well as amlodipine 10 mg orally once every day. 6. Hyperlipidemia. Stable at this time. 7. Chronic tobacco use and dependence. Patient quit smoking about 2 weeks ago. 8. Anemia likely related to chronic kidney disease rule out other etiology. Transfuse for hemoglobin less than 7. His current hemoglobin 7.4. 9. Thrombocytopenia. Repeat CBC tomorrow morning. 10. DVT prophylaxis. Lovenox 30 mg subcu convinced every 24 hours. 11. GI prophylaxis. Protonix 40 mg orally once every day. 12. Admit to inpatient. Estimated a length of stay 2 midnights. 13. Patient is a full code.
--- NOTE | 2018-01-03 15:35 | US ---
EXAMINATION TYPE: US venous doppler duplex LE BI DATE OF EXAM: 01/03/2018 12:45 PM COMPARISON: US 01/02/2018 CLINICAL HISTORY: edema. SIDE PERFORMED: Bilateral TECHNIQUE: The lower extremity deep venous system is examined utilizing real time linear array sonog luther with graded compression, doppler sonography and color-flow sonography. VESSELS IMAGED: External Iliac Vein (EIV) Common Femoral Vein Deep Femoral Vein Greater Saphenous Vein * Femoral Vein Popliteal Vein Small Saphenous Vein * Proximal Calf Veins (* superficial vessels) Grayscale, color doppler, spectral doppler imaging performed of the deep veins of the lower extremiti es. There is normal flow, compressibility, vascular waveforms. Right Leg: Negative for DVT Left Leg: Negative for DVT IMPRESSION: No sonographic evidence of deep venous thrombosis within the bilateral lower extremities .
[2018-01-03 18:15] LABS: Potassium 5.1 mmol/L (3.5-5.1)
[2018-01-03 18:22] LABS: Calcium 6.5 mg/dL (8.4-10.2)
[2018-01-03 19:41] LABS: Iron Saturation 20.58 (15.00-50.00)
[2018-01-03 20:01] LABS: DNA Double-Stranded NEGATIVE (NEGATIVE)
[2018-01-04 05:12] LABS: Magnesium 2.3 mg/dL (1.6-2.3); Potassium 4.7 mmol/L (3.5-5.1)
[2018-01-04] MEDS: DEXTROSE 5% IN WATER 1,000 ML with SODIUM BICARB (1 MEQ/ML) 150 ML IV SCH (05:18)
[2018-01-04 05:31] LABS: Calcium 6.2 mg/dL (8.4-10.2); Phosphorus 8.1 mg/dL (2.5-4.5)
[2018-01-04 05:42] LABS: Anisocytosis Slight; Basophils % (A) 0 %; Eosinophils # (A) 0.9 k/uL (0-0.7); Eosinophils % (A) 10 %; HCT 23.5 % (39.0-53.0); HGB 7.4 gm/dL (13.0-17.5); Hypochromasia Slight; Lymphocytes # (A) 0.8 k/uL (1.0-4.8); Lymphocytes % (A) 9 %; MCH 27.3 pg (25.0-35.0); MCHC 31.2 g/dL (31.0-37.0); MCV 87.4 fL (80.0-100.0); Mean Platelet Volume 9.2; Monocytes # (A) 0.7 k/uL (0-1.0); Monocytes % (A) 7 %; Neutrophils % (A) 73 %; Platelet Count 111 k/uL (150-450); RBC 2.69 m/uL (4.30-5.90); RDW 16.1 % (11.5-15.5); WBC 9.5 k/uL (3.8-10.6)
[2018-01-04] MEDS ORDERED: CALCIUM GLUCONATE 2,000 MG in SODIUM CHLORIDE 0.9% 100 ML IVPB ONE (06:00)
--- NOTE | 2018-01-04 07:19 | P.PN ---
Subjective Progress Note Date: 01/04/18 Principal diagnosis: Renal failure Progress note dated 01/04/2018 This is a 63-year-old male patient who presented to the emergency department on January 02 with complaints of increasing bilateral lower extremity edema and poor urination. Lab work revealed evidence of hyperkalemia and renal failure and metabolic acidosis. The patient was transferred to the ICU for further treatment and monitoring. He does have a history of hypertension. The patient seemed to improve over the last 24 hours or so. Venous Dopplers of lower extremities were negative. DVT. He is on 4 L nasal oxygen. His IV is dextrose with 3 A of sodium bicarbonate at 125 mL an hour. There is some consideration given to hemodialysis or renal replacement therapy but his renal function seems to be improving. Clinically he stable. He is really not an ICU patient per se. He's really is overflow patient. Labs x-rays a medications are all reviewed. Objective - Vital Signs Vital signs: Vital Signs Temp 98 F 01/04/18 00:00 Pulse 59 L 01/04/18 07:00 Resp 17 01/04/18 07:00 BP 140/66 01/04/18 07:00 Pulse Ox 95 01/04/18 07:00 Intake & Output 01/03/18 01/04/18 01/04/18 18:59 06:59 18:59 Intake Total 2410 1600 125 Output Total 1205 1450 115 Balance 1205 150 10 Weight 86.7 kg 86 kg Intake: IV 1450 1600 125 Calcium Gluconate 1,000 200 100 mg In Sodium Chloride 0.9 % 100 ml @ 100 mls/hr IVPB ONCE ONE Rx#: [id number] Dextrose 5% in Water 1, 1250 1500 125 000 ml @ 125 mls/hr IV . Q8H48M FENG with Sodium Bicarb (1 Meq/ml) 100 ml Rx#:[id number] Oral 960 Output: Urine 1205 1450 115 Other: Voiding Method Indwelling Catheter Indwelling Catheter - Exam No acute distress, oriented 3. Nasal O2 in place. HEENT examination is grossly unremarkable. Mucous membranes are moist. No oral lesions. Neck supple. Full range of motion. No adenopathy thyromegaly or neck vein distention. Cardiovascular examination reveals regular rhythm rate. S1-S2 normal. No S3 or S4. No discernible murmur noted. Lungs reveal clear breath sounds. Her sounds are equal bilaterally. No adventitious lung sounds including wheezes rhonchi or crackles. Abdomen soft bowel sounds are heard. No masses or tenderness. Extremities are intact. Slight edema noted. No evidence of clubbing or cyanosis. Skin is without rash or lesion. Neurologic examination is brief but nonfocal. - Labs CBC & Chem 7: 01/04/18 04:23 01/04/18 04:23 Labs: Abnormal Lab Results - Last 24 Hours (Table) 01/03/18 01/03/18 01/03/18 Range/Units 08:14 11:45 12:16 RBC (4.30-5.90) m/uL Hgb (13.0-17.5) gm/dL Hct (39.0-53.0) % MCHC (31.0-37.0) g/dL RDW (11.5-15.5) % Plt Count (150-450) k/uL Lymphocytes # (1.0-4.8) k/uL Eosinophils # (0-0.7) k/uL Potassium (3.5-5.1) mmol/L Chloride (98-107) mmol/L Carbon Dioxide (22-30) mmol/L BUN (9-20) mg/dL Creatinine (0.66-1.25) mg/dL Glucose (74-99) mg/dL POC Glucose (mg/dL) 100 H (75-99) mg/dL Calcium (8.4-10.2) mg/dL Phosphorus (2.5-4.5) mg/dL Magnesium (1.6-2.3) mg/dL Iron (65-175) ug/dL U Random Total Protein 324 H (<12) mg/dL ALEKS Screen POSITIVE H (NEGATIVE) 01/03/18 01/03/18 01/03/18 Range/Units 12:16 12:16 12:16 RBC 2.70 L (4.30-5.90) m/uL Hgb 7.4 L (13.0-17.5) gm/dL Hct 24.1 L (39.0-53.0) % MCHC 30.9 L (31.0-37.0) g/dL RDW 16.3 H (11.5-15.5) % Plt Count 111 L (150-450) k/uL Lymphocytes # 0.5 L (1.0-4.8) k/uL Eosinophils # (0-0.7) k/uL Potassium 5.6 H (3.5-5.1) mmol/L Chloride 112 H (98-107) mmol/L Carbon Dioxide 13 L (22-30) mmol/L BUN 110 H* (9-20) mg/dL Creatinine 6.96 H* (0.66-1.25) mg/dL Glucose 111 H (74-99) mg/dL POC Glucose (mg/dL) (75-99) mg/dL Calcium 6.3 L* (8.4-10.2) mg/dL Phosphorus 7.8 H (2.5-4.5) mg/dL Magnesium 2.4 H (1.6-2.3) mg/dL Iron 57 L (65-175) ug/dL U Random Total Protein (<12) mg/dL ALEKS Screen (NEGATIVE) 01/03/18 01/04/18 01/04/18 Range/Units 17:15 04:23 04:23 RBC 2.69 L (4.30-5.90) m/uL Hgb 7.4 L (13.0-17.5) gm/dL Hct 23.5 L (39.0-53.0) % MCHC (31.0-37.0) g/dL RDW 16.1 H (11.5-15.5) % Plt Count 111 L (150-450) k/uL Lymphocytes # 0.8 L (1.0-4.8) k/uL Eosinophils # 0.9 H (0-0.7) k/uL Potassium (3.5-5.1) mmol/L Chloride 111 H 109 H (98-107) mmol/L Carbon Dioxide 16 L 19 L (22-30) mmol/L BUN 110 H* 106 H* (9-20) mg/dL Creatinine 6.60 H* 6.20 H* (0.66-1.25) mg/dL Glucose 183 H 117 H (74-99) mg/dL POC Glucose (mg/dL) (75-99) mg/dL Calcium 6.5 L* 6.2 L* (8.4-10.2) mg/dL Phosphorus 8.1 H* (2.5-4.5) mg/dL Magnesium (1.6-2.3) mg/dL Iron (65-175) ug/dL U Random Total Protein (<12) mg/dL ALEKS Screen (NEGATIVE) Assessment and Plan Assessment: Assessment Acute on chronic renal failure with acute kidney injury related to acute tubular necrosis Acute hyperkalemia and hyperphosphatemia secondary to acute kidney injury. Essential hypertension Metabolic acidosis Anemia of chronic disease Glaucoma Chronic lower extremity edema, with negative Dopplers History of nicotine dependence History of peptic ulcer disease secondary to H. pylori infection. Plan: Plan dated 01/04/2018 The patient's seemingly doing much better. We'll make him a overflow patient. Appreciate input from nephrology. The patient could probably be discharged out of the unit later today has become available. Labs x-rays a medications are all reviewed. The patient seems be stable hemodynamically and respiratory jaime. His saturations did drop a bit last night. His nasal O2 was increased. There may be a component of hypoventilation or sleep apnea syndrome. Critical care time 32 minutes Time with Patient: Greater than 30
[2018-01-04] MEDS: CALCIUM ACETATE 667 MG CAP PO SCH ×3 (08:30→17:02)
[2018-01-04] MEDS: ASPIRIN 81 MG PO SCH (08:31)
[2018-01-04] MEDS: PANTOPRAZOLE 40 MG TABLET PO SCH (08:31)
[2018-01-04] MEDS: amLODIPine 10 MG TAB PO SCH (08:31)
[2018-01-04] MEDS: BRIMONIDINE TARTRATE 0.2% DROPS 5 ML BTL RIGHT EYE SCH (08:32)
[2018-01-04] MEDS: METOPROLOL TARTRATE 50 MG TAB PO SCH ×2 (08:34→20:15)
[2018-01-04] MEDS ORDERED: FAMOTIDINE 20 MG TAB PO SCH (09:00)
[2018-01-04 09:45] LABS: ANA Pattern See Footnote
[2018-01-04] MEDS: ENOXAPARIN 30 MG/0.3 ML SYRINGE SQ SCH (10:31)
--- NOTE | 2018-01-04 11:12 | XR ---
EXAMINATION TYPE: XR chest 1V portable DATE OF EXAM: 01/04/2018 COMPARISON: NONE HISTORY: Shortness of breath TECHNIQUE: Frontal view of the chest is obtained. FINDINGS: Scattered senescent parenchymal changes noted. Hyperinflation compatible with COPD. Left lower lobe infiltrate noted with small effusion. Correlate for pneumonia. Progress studies are r ecommended. Heart size is stable. Mediastinal structures are stable and grossly unremarkable. No evidence for hilar prominence. Degenerative changes dorsal spine. IMPRESSION: 1. Left lower lobe infiltrate noted with small effusion. Correlate for pneumonia. Progress studies ar e recommended.
--- NOTE | 2018-01-04 11:20 | P.PN ---
Subjective Principal diagnosis: Patient is seen for follow-up for acute kidney injury. He was admitted with a serum creatinine of about 7.36. It is slightly down to 6.2 today. Patient was also quite hyperkalemic on admission. He was hypotensive with systolic blood pressure in the 90s. Currently has been voiding well. Patient is maintained on IV fluids. Overall he is feeling slightly better. I have asked for his previous labs as outpatient prior to admission to the hospital to assess his baseline renal function. From all the workup that was ordered the AMA came back positive although the complements are not low. There is some underlying proteinuria. We may need to consider kidney biopsy this admission however I we will wait for the renal function to improve before proceeding to kidney biopsy or we may need to do dialysis if there is no further improvement. Objective - Vital Signs Vital signs: Vital Signs Temp 97.8 F 01/04/18 08:00 Pulse 62 01/04/18 11:00 Resp 17 01/04/18 11:00 BP 155/70 01/04/18 11:00 Pulse Ox 97 01/04/18 11:00 Intake & Output 01/03/18 01/04/18 01/04/18 18:59 06:59 18:59 Intake Total 2410 1600 560 Output Total 1205 1450 765 Balance 1205 150 -205 Weight 86.7 kg 86 kg Intake: IV 1450 1600 560 Calcium Gluconate 1,000 200 100 mg In Sodium Chloride 0.9 % 100 ml @ 100 mls/hr IVPB ONCE ONE Rx#: [id number] Dextrose 5% in Water 1, 1250 1500 560 000 ml @ 125 mls/hr IV . Q8H48M FENG with Sodium Bicarb (1 Meq/ml) 100 ml Rx#:[id number] Oral 960 Output: Urine 1205 1450 765 Other: Voiding Method Indwelling Catheter Indwelling Catheter Indwelling Catheter - Exam On examination patient is comfortable awake is not in any acute distress. 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 - Labs CBC & Chem 7: 01/04/18 04:23 01/04/18 04:23 Labs: Abnormal Lab Results - Last 24 Hours (Table) 01/03/18 01/03/1801/03/18 Range/Units 11:45 12:16 12:16 RBC (4.30-5.90) m/uL Hgb (13.0-17.5) gm/dL Hct (39.0-53.0) % MCHC (31.0-37.0) g/dL RDW (11.5-15.5) % Plt Count (150-450) k/uL Lymphocytes # (1.0-4.8) k/uL Eosinophils # (0-0.7) k/uL Potassium (3.5-5.1) mmol/L Chloride (98-107) mmol/L Carbon Dioxide (22-30) mmol/L BUN (9-20) mg/dL Creatinine (0.66-1.25) mg/dL Glucose (74-99) mg/dL Calcium (8.4-10.2) mg/dL Phosphorus (2.5-4.5) mg/dL Magnesium (1.6-2.3) mg/dL Iron 57 L (65-175) ug/dL U Random Total Protein 324 H (<12) mg/dL ALEKS Screen POSITIVE H (NEGATIVE) 01/03/18 01/03/18 01/03/18 Range/Units 12:16 12:16 17:15 RBC 2.70 L (4.30-5.90) m/uL Hgb 7.4 L (13.0-17.5) gm/dL Hct 24.1 L (39.0-53.0) % MCHC 30.9 L (31.0-37.0) g/dL RDW 16.3 H (11.5-15.5) % Plt Count 111 L (150-450) k/uL Lymphocytes # 0.5 L (1.0-4.8) k/uL Eosinophils # (0-0.7) k/uL Potassium 5.6 H (3.5-5.1) mmol/L Chloride 112 H 111 H (98-107) mmol/L Carbon Dioxide 13 L 16 L (22-30) mmol/L BUN 110 H* 110 H* (9-20) mg/dL Creatinine 6.96 H* 6.60 H* (0.66-1.25) mg/dL Glucose 111 H 183 H (74-99) mg/dL Calcium 6.3 L* 6.5 L* (8.4-10.2) mg/dL Phosphorus 7.8 H (2.5-4.5) mg/dL Magnesium 2.4 H (1.6-2.3) mg/dL Iron (65-175) ug/dL U Random Total Protein (<12) mg/dL ALEKS Screen (NEGATIVE) 01/04/18 01/04/18 Range/Units 04:23 04:23 RBC 2.69 L (4.30-5.90) m/uL Hgb 7.4 L (13.0-17.5) gm/dL Hct 23.5 L (39.0-53.0) % MCHC (31.0-37.0) g/dL RDW 16.1 H (11.5-15.5) % Plt Count 111 L (150-450) k/uL Lymphocytes # 0.8 L (1.0-4.8) k/uL Eosinophils # 0.9 H (0-0.7) k/uL Potassium (3.5-5.1) mmol/L Chloride 109 H (98-107) mmol/L Carbon Dioxide 19 L (22-30) mmol/L BUN 106 H* (9-20) mg/dL Creatinine 6.20 H* (0.66-1.25) mg/dL Glucose 117 H (74-99) mg/dL Calcium 6.2 L* (8.4-10.2) mg/dL Phosphorus 8.1 H* (2.5-4.5) mg/dL Magnesium (1.6-2.3) mg/dL Iron (65-175) ug/dL U Random Total Protein (<12) mg/dL ALEKS Screen (NEGATIVE) Assessment and Plan Plan: Assessment 1. Acute kidney injury rule out underlying acute GN. The urine eosinophils are negative. Patient does have nonnephrotic range proteinuria. The ANAs positive. The complements are pending. [id number] DNA is negative as well. I will obtain previous labs prior to admission to assess patient's baseline renal function. He may need a kidney biopsy if the renal function does not improve further. Decrease IV fluids 2. Hyperphosphatemia secondary to renal failure maintained on phosphate binders 3. Hypocalcemia rule out nutritional vitamin D deficiency 4. Metabolic acidosis secondary to renal failure currently improved. Patient is maintained on IV bicarb 5. Hypertension with fair control 6. Hyperkalemia secondary to acute kidney injury currently improved 7. Anemia, rule out iron deficiency. No active bleeding noted I will hold off on packed RBCs transfusion for now next Plan Check 25 hydroxy vitamin D level. Decrease IV fluids. Check outpatient labs prior to admission for baseline creatinine. Await complements. Possible kidney biopsy this admission. No need for renal replacement therapy based on assessment today
--- NOTE | 2018-01-04 11:55 | P.PN ---
Subjective Progress Note Date: 01/04/18 This is a 62-year-old male patient of mine with a past medical history of hypertension and hypertensive cardiovascular disease, hyperlipidemia, history of chronic kidney disease stage 2, chronic tobacco use and dependence, history of hematuria, patient was complaining of an episode of and nausea vomiting and diarrhea about 3 weeks prior to the presentation and he was trying to come and see me in the office and the patient was seen yesterday by mid care provider, and laboratory evaluation were done since the patient did not have any lab done in a while due to financial issues, patient did have laboratory evaluation the form of the CMP and his potassium came back elevated at 6.2 and his BUN was elevated as well as creatinine so he was directed to the ER at [facility] he was seen in the emergency department he was given calcium gluconate, D50 with insulin, also was given nebulized treatment, and patient also was started on Kayexalate 45 g orally 1, he was placed on sodium bicarb and it drip , because he was severely acidotic with a bicarb level of 12 his creatinine was 7.3 his potassium went up to 7.3 patient was admitted to intensive care unit, he was seen in consultation by nephrology as well as by pulmonary medicine, and the patient had a Giordano catheter in due to an element of the obstruction as well , patient is sitting up in bed is feeling okay he denies any chest pain or shortness breath he has no bowel pain, nausea, vomiting. 01/04: BUN 106 and creatinine 6.2. Hemoglobin is stable at 7.4. ALEKS screen is positive, double-stranded DNA antibody negative, anti-DNA antibiotic interpretation is 1 which was negative and total complement 76 within normal range. Platelet count remains same at 111. Patient has been changed to overflow by Dr. Hernandez and can be moved out of the ICU today. He has been hemodynamically stable. Pulse ox is currently 93% on 6 L. Blood pressure is high this morning at 165/91. He has had good urine output. Giordano removed this morning. Objective - Vital Signs Vital signs: Vital Signs Temp 97.8 F 01/04/18 08:00 Pulse 68 01/04/18 09:00 Resp 16 01/04/18 09:00 BP 165/91 01/04/18 09:00 Pulse Ox 97 01/04/18 09:00 Intake & Output 01/03/18 01/04/18 01/04/18 18:59 06:59 18:59 Intake Total 2410 1600 375 Output Total 1205 1450 490 Balance 1205 150 -115 Weight 86.7 kg 86 kg Intake: IV 1450 1600 375 Calcium Gluconate 1,000 200 100 mg In Sodium Chloride 0.9 % 100 ml @ 100 mls/hr IVPB ONCE ONE Rx#: [id number] Dextrose 5% in Water 1, 1250 1500 375 000 ml @ 125 mls/hr IV . Q8H48M FENG with Sodium Bicarb (1 Meq/ml) 100 ml Rx#:[id number] Oral 960 Output: Urine 1205 1450 490 Other: Voiding Method Indwelling Catheter Indwelling Catheter Indwelling Catheter - Exam General appearance: average body habitus, no acute distress - EENT Eyes: anicteric sclerae, EOMI, PERRLA, dentition normal, no ptosis, no scleral icterus, normal appearance ENT: hearing grossly normal, NA/AT, normal oropharynx, no thrush Ears: bilateral: normal - Neck Neck: no lymphadenopathy, normal ROM, no rigidity, no stridor, no thyromegaly Carotids: bilateral: upstroke normal Thyroid: bilateral: normal size - Respiratory Respiratory: bilateral: diminished, negative: dullness, rales, rhonchi, wheezing , prolonged expiration - Cardiovascular Rhythm: regular Heart sounds: normal: S1, S2 Abnormal Heart Sounds: systolic murmur, no S3 Gallop, no S4 Gallop - Gastrointestinal General gastrointestinal: normal bowel sounds, soft, no splenomegaly, no tenderness, no umbilical hernia, no ventral hernia - Integumentary Integumentary: normal, normal turgor - Neurologic Neurologic: CNII-XII intact - Musculoskeletal Musculoskeletal: generalized weakness, strength equal bilaterally - Psychiatric Psychiatric: A&O x's 3, appropriate affect, intact judgment & insight - Labs CBC & Chem 7: 01/04/18 04:23 01/04/18 04:23 Labs: Abnormal Lab Results - Last 24 Hours (Table) 01/03/18 01/03/18 01/03/18 Range/Units 11:45 12:16 12:16 RBC (4.30-5.90) m/uL Hgb (13.0-17.5) gm/dL Hct (39.0-53.0) % MCHC (31.0-37.0) g/dL RDW (11.5-15.5) % Plt Count (150-450) k/uL Lymphocytes # (1.0-4.8) k/uL Eosinophils # (0-0.7) k/uL Potassium (3.5-5.1) mmol/L Chloride (98-107) mmol/L Carbon Dioxide (22-30) mmol/L BUN (9-20) mg/dL Creatinine (0.66-1.25) mg/dL Glucose (74-99) mg/dL Calcium (8.4-10.2) mg/dL Phosphorus (2.5-4.5) mg/dL Magnesium (1.6-2.3) mg/dL Iron 57 L (65-175) ug/dL U Random Total Protein 324 H (<12) mg/dL ALEKS Screen POSITIVE H (NEGATIVE) 01/03/18 01/03/18 01/03/18 Range/Units 12:16 12:16 17:15 RBC 2.70 L (4.30-5.90) m/uL Hgb 7.4 L (13.0-17.5) gm/dL Hct 24.1 L (39.0-53.0) % MCHC 30.9 L (31.0-37.0) g/dL RDW 16.3 H (11.5-15.5) % Plt Count 111 L (150-450) k/uL Lymphocytes # 0.5 L (1.0-4.8) k/uL Eosinophils # (0-0.7) k/uL Potassium 5.6 H (3.5-5.1) mmol/L Chloride 112 H 111 H (98-107) mmol/L Carbon Dioxide 13 L 16 L (22-30) mmol/L BUN 110 H* 110 H* (9-20) mg/dL Creatinine 6.96 H* 6.60 H* (0.66-1.25) mg/dL Glucose 111 H 183 H (74-99) mg/dL Calcium 6.3 L* 6.5 L* (8.4-10.2) mg/dL Phosphorus 7.8 H (2.5-4.5) mg/dL Magnesium 2.4 H (1.6-2.3) mg/dL Iron (65-175) ug/dL U Random Total Protein (<12) mg/dL ALEKS Screen (NEGATIVE) 01/04/18 01/04/18 Range/Units 04:23 04:23 RBC 2.69 L (4.30-5.90) m/uL Hgb 7.4 L (13.0-17.5) gm/dL Hct 23.5 L (39.0-53.0) % MCHC (31.0-37.0) g/dL RDW 16.1 H (11.5-15.5) % Plt Count 111 L (150-450) k/uL Lymphocytes # 0.8 L (1.0-4.8) k/uL Eosinophils # 0.9 H (0-0.7) k/uL Potassium (3.5-5.1) mmol/L Chloride 109 H (98-107) mmol/L Carbon Dioxide 19 L (22-30) mmol/L BUN 106 H* (9-20) mg/dL Creatinine 6.20 H* (0.66-1.25) mg/dL Glucose 117 H (74-99) mg/dL Calcium 6.2 L* (8.4-10.2) mg/dL Phosphorus 8.1 H* (2.5-4.5) mg/dL Magnesium (1.6-2.3) mg/dL Iron (65-175) ug/dL U Random Total Protein (<12) mg/dL ALEKS Screen (NEGATIVE) Assessment and Plan Plan: 1. Acute kidney injury and top of chronic kidney disease stage II secondary to acute tubular necrosis. Patient was started on IV bicarbonate drip, patient did receive Kayexalate 45 g orally 1, we'll repeat his potassium level again patient does have hematuria and proteinuria, and he appears to be anemic at 7.4 , patient would need to be monitored very closely he was started already on PhosLo for hyperphosphatemia he was given calcium gluconate dextrose and insulin. Nephrology is following. Giuliana grimes. 2. Hyperkalemia secondary to acute kidney injury. Patient did receive Kayexalate 45 g orally 1, calcium gluconate 2 g IV, D50 with insulin, albuterol nebulized treatment. 3. Hypocalcemia due to acute kidney injury. Status post calcium gluconate. 4. Hyperphosphatemia. Continue the patient on PhosLo as ordered by nephrology. 5. Hypertension and hypertensive cardiovascular disease. Discontinue losartan and Lasix, continue metoprolol 50 grams orally twice every day as well as amlodipine 10 mg orally once every day. 6. Hyperlipidemia. Stable at this time. 7. Chronic tobacco use and dependence. Patient quit smoking about 2 weeks ago. 8. Anemia likely related to chronic kidney disease rule out other etiology. Transfuse for hemoglobin less than 7. His current hemoglobin 7.4. 9. Thrombocytopenia. Repeat CBC tomorrow morning. 10. DVT prophylaxis. Lovenox 30 mg subcu convinced every 24 hours. 11. GI prophylaxis. Protonix 40 mg orally once every day. 12. Patient is a full code. Discharge plan: Return home Impression and plan of care have been directed as dictated by the signing physician. Anita Amaya nurse practitioner acting as scribe for signing physician.
[2018-01-04] MEDS: TAMSULOSIN 0.4 MG CAP.ER.24H PO SCH (12:09)
[2018-01-04 13:40] LABS: Complement C3 91.5 mg/dL (80.0-207.0)
[2018-01-04 14:31] LABS: C-ANCA <1:20 Titer (<1:20); P-ANCA <1:20 Titer (<1:20)
[2018-01-05 05:58] LABS: Anisocytosis Slight; Basophils % (A) 0 %; Eosinophils % (A) 13 %; HCT 23.3 % (39.0-53.0); HGB 7.3 gm/dL (13.0-17.5); Hypochromasia Slight; Lymphocytes # (A) 0.9 k/uL (1.0-4.8); Lymphocytes % (A) 12 %; MCH 27.3 pg (25.0-35.0); MCHC 31.3 g/dL (31.0-37.0); MCV 87.4 fL (80.0-100.0); Mean Platelet Volume 11.6; Monocytes # (A) 0.6 k/uL (0-1.0); Monocytes % (A) 7 %; Neutrophils % (A) 66 %; RBC 2.66 m/uL (4.30-5.90); WBC 7.6 k/uL (3.8-10.6)
[2018-01-05 06:35] LABS: Platelet Count 91 k/uL (150-450)
[2018-01-05 06:36] LABS: Magnesium 2.1 mg/dL (1.6-2.3); Phosphorus 6.9 mg/dL (2.5-4.5); Potassium 4.1 mmol/L (3.5-5.1)
[2018-01-05] MEDS: CALCIUM ACETATE 667 MG CAP PO SCH ×3 (07:59→17:59)
[2018-01-05] MEDS: BRIMONIDINE TARTRATE 0.2% DROPS 5 ML BTL RIGHT EYE SCH (08:00)
[2018-01-05] MEDS: PANTOPRAZOLE 40 MG TABLET PO SCH (08:01)
[2018-01-05] MEDS: amLODIPine 10 MG TAB PO SCH (08:01)
[2018-01-05] MEDS: ENOXAPARIN 30 MG/0.3 ML SYRINGE SQ SCH (08:02)
[2018-01-05] MEDS: ASPIRIN 81 MG PO SCH (08:02)
[2018-01-05] MEDS: METOPROLOL TARTRATE 50 MG TAB PO SCH ×2 (08:02→20:20)
[2018-01-05] MEDS: TAMSULOSIN 0.4 MG CAP.ER.24H PO SCH (08:03)
[2018-01-05] MEDS: DEXTROSE 5% IN WATER 1,000 ML with SODIUM BICARB (1 MEQ/ML) 150 ML IV SCH ×2 (08:03→10:08)
[2018-01-05] MEDS: SODIUM CHLORIDE 0.9% 1,000 ML IV SCH (10:09)
[2018-01-05] MEDS: CALCIUM CARBONATE 500 MG CHEWABLE PO SCH ×2 (10:10→20:21)
--- NOTE | 2018-01-05 10:16 | P.PN ---
Subjective This is a 62-year-old male patient of mine with a past medical history of hypertension and hypertensive cardiovascular disease, hyperlipidemia, history of chronic kidney disease stage 2, chronic tobacco use and dependence, history of hematuria, patient was complaining of an episode of and nausea vomiting and diarrhea about 3 weeks prior to the presentation and he was trying to come and see me in the office and the patient was seen yesterday by mid care provider, and laboratory evaluation were done since the patient did not have any lab done in a while due to financial issues, patient did have laboratory evaluation the form of the CMP and his potassium came back elevated at 6.2 and his BUN was elevated as well as creatinine so he was directed to the ER at [facility] he was seen in the emergency department he was given calcium gluconate, D50 with insulin, also was given nebulized treatment, and patient also was started on Kayexalate 45 g orally 1, he was placed on sodium bicarb and it drip , because he was severely acidotic with a bicarb level of 12 his creatinine was 7.3 his potassium went up to 7.3 patient was admitted to intensive care unit, he was seen in consultation by nephrology as well as by pulmonary medicine, and the patient had a Giordano catheter in due to an element of the obstruction as well , patient is sitting up in bed is feeling okay he denies any chest pain or shortness breath he has no bowel pain, nausea, vomiting. 5/: BUN 106 and creatinine 6.2. Hemoglobin is stable at 7.4. ALEKS screen is positive, double-stranded DNA antibody negative, anti-DNA antibiotic interpretation is 1 which was negative and total complement 76 within normal range. Platelet count remains same at 111. Patient has been changed to overflow by Dr. Hernandez and can be moved out of the ICU today. He has been hemodynamically stable. Pulse ox is currently 93% on 6 L. Blood pressure is high this morning at 165/91. He has had good urine output. Giordano removed this morning. 5/2: Patient was evaluated today, BUN 101, creatinine 5.70, hemoglobin stable at 7.3, potassium 4.1. Blood pressure improved today 133/67, pulse ox 95% on 3 L supplemental nasal oxygen via cannula. He continues to have good urine output. Per nephrology's notes, may need a kidney biopsy if renal function does not improve further. Objective - Vital Signs Vital signs: Vital Signs Temp 97.9 F 01/05/18 04:00 Pulse 87 01/05/18 04:00 Resp 16 01/05/18 04:00 BP 133/67 01/05/18 04:00 Pulse Ox 95 01/05/18 04:00 Intake & Output 01/04/18 01/05/18 01/05/18 18:59 06:59 18:59 Intake Total 1300 540 Output Total 765 400 Balance 535 140 Weight 86 kg 90.2 kg Intake: IV 800 540 Dextrose 5% in Water 1, 800 000 ml @ 125 mls/hr IV . Q8H48M FENG with Sodium Bicarb (1 Meq/ml) 100 ml Rx#:[id number] Dextrose 5% in Water 1, 540 000 ml @ 60 mls/hr IV . [id number] FENG with Sodium Bicarb (1 Meq/ml) 150 ml Rx#:[id number] Oral 500 Output: Urine 765 400 Other: Voiding Method Indwelling Catheter Indwelling Catheter # Voids 1 2 - Exam - Exam General appearance: average body habitus, no acute distress - EENT Eyes: anicteric sclerae, EOMI, PERRLA, dentition normal, no ptosis, no scleral icterus, normal appearance ENT: hearing grossly normal, NA/AT, normal oropharynx, no thrush Ears: bilateral: normal - Neck Neck: no lymphadenopathy, normal ROM, no rigidity, no stridor, no thyromegaly Carotids: bilateral: upstroke normal Thyroid: bilateral: normal size - Respiratory Respiratory: bilateral: diminished, negative: dullness, rales, rhonchi, wheezing , prolonged expiration - Cardiovascular Rhythm: regular Heart sounds: normal: S1, S2 Abnormal Heart Sounds: systolic murmur, no S3 Gallop, no S4 Gallop - Gastrointestinal General gastrointestinal: normal bowel sounds, soft, no splenomegaly, no tenderness, no umbilical hernia, no ventral hernia - Integumentary Integumentary: normal, normal turgor - Neurologic Neurologic: CNII-XII intact - Musculoskeletal Musculoskeletal: generalized weakness, strength equal bilaterally - Psychiatric Psychiatric: A&O x's 3, appropriate affect, intact judgment & insight - Labs CBC & Chem 7: 01/05/18 05:41 01/05/18 05:41 Labs: Abnormal Lab Results - Last 24 Hours (Table) 01/05/18 01/05/18 Range/Units 05:41 05:41 RBC 2.66 L (4.30-5.90) m/uL Hgb 7.3 L (13.0-17.5) gm/dL Hct 23.3 L (39.0-53.0) % RDW 16.0 H (11.5-15.5) % Plt Count 91 L (150-450) k/uL Lymphocytes # 0.9 L (1.0-4.8) k/uL Eosinophils # 1.0 H (0-0.7) k/uL BUN 101 H* (9-20) mg/dL Creatinine 5.70 H* (0.66-1.25) mg/dL Glucose 108 H (74-99) mg/dL Calcium 6.0 L* (8.4-10.2) mg/dL Phosphorus 6.9 H (2.5-4.5) mg/dL Assessment and Plan Plan: 1. Acute kidney injury and top of chronic kidney disease stage II secondary to acute tubular necrosis. Patient was started on IV bicarbonate drip, patient did receive Kayexalate 45 g orally 1, we'll continue to monitor potassium levels, he is slightly anemic at 7.3, patient would need to be monitored very closely he was started already on PhosLo for hyperphosphatemia he was given calcium gluconate dextrose and insulin. Nephrology is following. Giuliana removed. 2. Hyperkalemia secondary to acute kidney injury. Improved, potassium 4.1, Patient did receive Kayexalate 45 g orally 1, calcium gluconate 2 g IV, D50 with insulin, albuterol nebulized treatment. 3. Hypocalcemia due to acute kidney injury. Status post calcium gluconate. 4. Hyperphosphatemia. Continue the patient on PhosLo as ordered by nephrology. 5. Hypertension and hypertensive cardiovascular disease. Discontinue losartan and Lasix, continue metoprolol 50 grams orally twice every day as well as amlodipine 10 mg orally once every day. 6. Hyperlipidemia. Stable at this time. 7. Chronic tobacco use and dependence. Patient quit smoking about 2 weeks ago. 8. Anemia likely related to chronic kidney disease rule out other etiology. Transfuse for hemoglobin less than 7. His current hemoglobin 7.3. 9. Thrombocytopenia. Repeat CBC tomorrow morning. 10. DVT prophylaxis. Lovenox 30 mg subcu convinced every 24 hours. 11. GI prophylaxis. Protonix 40 mg orally once every day. 12. Patient is a full code. Discharge plan: Return home The above impression and plan of care have been discussed and directed by signing physician. Rosa Becerril nurse practitioner acting as scribe for signing physician.
--- NOTE | 2018-01-05 10:56 | P.PN ---
Subjective Progress Note Date: 01/05/18 Principal diagnosis: Acute renal failure Progress note dated 01/04/2018 This is a 63-year-old male patient who presented to the emergency department on January 02 with complaints of increasing bilateral lower extremity edema and poor urination. Lab work revealed evidence of hyperkalemia and renal failure and metabolic acidosis. The patient was transferred to the ICU for further treatment and monitoring. He does have a history of hypertension. The patient seemed to improve over the last 24 hours or so. Venous Dopplers of lower extremities were negative. DVT. He is on 4 L nasal oxygen. His IV is dextrose with 3 A of sodium bicarbonate at 125 mL an hour. There is some consideration given to hemodialysis or renal replacement therapy but his renal function seems to be improving. Clinically he stable. He is really not an ICU patient per se. He's really is overflow patient. Labs x-rays a medications are all reviewed. Progress note dated 01/05/2018 patient is seen again today in the intensive care unit. He is awake and alert in no acute distress. He denies any shortness of breath, cough or congestion. No chills or night sweats. He is maintaining good O2 saturations in the mid 90s on 3 L/m per nasal cannula. He' s been hemodynamically stable. Afebrile. White count 7.6. Hemoglobin 7.3. BUN 101. Creatinine 5.70. Objective - Vital Signs Vital signs: Vital Signs Temp 97.9 F 01/05/18 08:00 Pulse 64 01/05/18 08:00 Resp 18 01/05/18 08:00 BP 139/67 01/05/18 08:00 Pulse Ox 94 L 01/05/18 08:00 Intake & Output 01/04/18 01/05/18 01/05/18 18:59 06:59 18:59 Intake Total 1300 540 180 Output Total 765 400 500 Balance 535 140 -320 Weight 86 kg 90.2 kg 90.2 kg Intake: IV 800 540 180 Dextrose 5% in Water 1, 800 000 ml @ 125 mls/hr IV . Q8H48M FENG with Sodium Bicarb (1 Meq/ml) 100 ml Rx#:[id number] Dextrose 5% in Water 1, 540 180 000 ml @ 60 mls/hr IV . [id number] FENG with Sodium Bicarb (1 Meq/ml) 150 ml Rx#:[id number] Oral 500 Output: Urine 765 400 500 Other: Voiding Method Indwelling Catheter Indwelling Catheter Urinal # Voids 1 2 - Exam - Exam No acute distress, oriented 3. Nasal O2 in place. HEENT examination is grossly unremarkable. Mucous membranes are moist. No oral lesions. Neck supple. Full range of motion. No adenopathy thyromegaly or neck vein distention. Cardiovascular examination reveals regular rhythm rate. S1-S2 normal. No S3 or S4. No discernible murmur noted. Lungs reveal clear breath sounds. Her sounds are equal bilaterally. No adventitious lung sounds including wheezes rhonchi or crackles. Abdomen soft bowel sounds are heard. No masses or tenderness. Extremities are intact. Slight edema noted. No evidence of clubbing or cyanosis. Skin is without rash or lesion. Neurologic examination is brief but nonfocal. - Labs CBC & Chem 7: 01/05/18 05:41 01/05/18 05:41 Labs: Abnormal Lab Results - Last 24 Hours (Table) 01/05/18 01/05/18 01/05/18 Range/Units 05:41 05:41 05:41 RBC 2.66 L (4.30-5.90) m/uL Hgb 7.3 L (13.0-17.5) gm/dL Hct 23.3 L (39.0-53.0) % RDW 16.0 H (11.5-15.5) % Plt Count 91 L (150-450) k/uL Lymphocytes # 0.9 L (1.0-4.8) k/uL Eosinophils # 1.0 H (0-0.7) k/uL BUN 101 H* (9-20) mg/dL Creatinine 5.70 H* (0.66-1.25) mg/dL Glucose 108 H (74-99) mg/dL Calcium 6.0 L* (8.4-10.2) mg/dL Phosphorus 6.9 H (2.5-4.5) mg/dL Creatine Kinase 437 H (55-170) U/L Assessment and Plan Assessment: Assessment Acute on chronic renal failure with acute kidney injury related to suspected acute glomerulonephritis with nonnephrotic range proteinuria. ANAs are positive. Acute hyperkalemia and hyperphosphatemia secondary to acute kidney injury. Essential hypertension Metabolic acidosis Anemia of chronic disease Glaucoma Chronic lower extremity edema, with negative Dopplers History of nicotine dependence History of peptic ulcer disease secondary to H. pylori infection. Plan: The patient was seen and evaluated by Dr. Hernandez. He is stable from the pulmonary and critical care standpoint. He'll be transferred to regular medical floor today. Nephrology is on the case and they are working him up for possible acute glomerulonephritis. ALEKS positive. He is continued on 0.9 normal saline at 50 MLS per hour. No plans for hemodialysis at this point. We will continue to follow and make further recommendations based on his clinical status. I, the cosigning physician, performed a history & physical examination of the patient. Lungs sounds are clear. Maintaining good O2 saturations in the 90s on 3 L/m nasal cannula. I discussed the assessment and plan of care with my nurse practitioner, Karen López. I attest to the above note as dictated by her.
--- NOTE | 2018-01-05 16:39 | PN ---
PROGRESS NOTE Patient is seen for followup for acute kidney injury. He was admitted with a serum creatinine of 7.3. Patient is maintained on IV fluids. His creatinine is slowly decreasing. It is down to 5.7, his BUN remains elevated. Patient does have a positive ALEKS, all other serologies are negative and complements are not elevated. [place] and lambda chains are also elevated, although the ratio is not off. Overall, patient states he is feeling better. He was also acidotic on initial admission and was maintained on IV bicarb. PHYSICAL EXAMINATION: On examination today, blood pressure is 147/72, this morning it was 133/67, heart rate of 60 per minute. Patient is afebrile. Examination of the heart, S1, S2. Examination of the lungs, bilateral breath sounds are heard. Abdomen is soft, nontender. Examination of the lower extremities shows no evidence of edema. MEDICAL RECORDS SECRETARY exam is grossly intact. Left upper extremity appears mildly edematous. LABS: Show sodium 142, potassium 4.1, BUN 101, serum creatinine 5.7, phosphorus 6.9, calcium is 6.0. Iron saturation was 20%. Hemoglobin remains at 7.3 g/dL. ASSESSMENT: 1. Acute kidney injury. Previous creatinine has been about 1.5 to 1.6 mg/dL as outpatient. Patient does have positive ALEKS. There is concern for possible underlying glomerular nephritis. The creatinine is slowly improving. Patient will likely still need the kidney biopsy, but I would like to do it once the creatinine is slightly lower secondary to risk of bleeding. 2. Hyperphosphatemia from renal failure, maintained on phosphate binders, slowly improving. 3. Hypocalcemia. Will start TUMS. Continue with the PhosLo and 25 hydroxy vitamin D level has been ordered. 4. Anemia with no active bleeding noted. Iron studies were not suggestive of severe iron deficiency. I will start the patient on Procrit. 5. Metabolic acidosis, currently improved. Will discontinue bicarb drip. PLAN: Switch IV fluids to normal saline. Continue with Flomax. Continue PhosLo, add TUMS. Check 25 hydroxy vitamin D level and will tentatively plan for kidney biopsy on Sunday unless the kidney function is significantly improved. MMODL / IJN: [id number] /
[2018-01-05] MEDS: DARBEPOETIN ALFA 40 MCG/0.4 ML SYRINGE SQ SCH (17:59)
[2018-01-06] MEDS: SODIUM CHLORIDE 0.9% 1,000 ML IV SCH (05:06)
[2018-01-06] MEDS: CALCIUM CARBONATE 500 MG CHEWABLE PO SCH ×2 (07:46→21:50)
[2018-01-06] MEDS: CALCIUM ACETATE 667 MG CAP PO SCH ×3 (07:46→17:11)
[2018-01-06] MEDS: TAMSULOSIN 0.4 MG CAP.ER.24H PO SCH (07:47)
[2018-01-06] MEDS: PANTOPRAZOLE 40 MG TABLET PO SCH (07:47)
[2018-01-06] MEDS: amLODIPine 10 MG TAB PO SCH (07:52)
[2018-01-06] MEDS: METOPROLOL TARTRATE 50 MG TAB PO SCH ×2 (07:52→21:50)
[2018-01-06] MEDS: BRIMONIDINE TARTRATE 0.2% DROPS 5 ML BTL RIGHT EYE SCH (07:52)
[2018-01-06] MEDS: ENOXAPARIN 30 MG/0.3 ML SYRINGE SQ SCH (07:52)
[2018-01-06] MEDS: ASPIRIN 81 MG PO SCH (07:52)
[2018-01-06 07:58] LABS: Basophils % (A) 0 %; Eosinophils % (A) 11 %; HCT 24.5 % (39.0-53.0); HGB 7.4 gm/dL (13.0-17.5); Hypochromasia Moderate; Lymphocytes # (A) 0.9 k/uL (1.0-4.8); Lymphocytes % (A) 9 %; MCH 26.6 pg (25.0-35.0); MCHC 30.3 g/dL (31.0-37.0); MCV 87.8 fL (80.0-100.0); Mean Platelet Volume 9.3; Monocytes # (A) 0.6 k/uL (0-1.0); Monocytes % (A) 6 %; Neutrophils # (A) 6.6 k/uL (1.3-7.7); Neutrophils % (A) 72 %; Platelet Count 111 k/uL (150-450); RBC 2.78 m/uL (4.30-5.90); WBC 9.2 k/uL (3.8-10.6)
[2018-01-06 08:21] LABS: Phosphorus 6.4 mg/dL (2.5-4.5); Potassium 4.3 mmol/L (3.5-5.1)
[2018-01-06 08:34] LABS: Calcium 5.9 mg/dL (8.4-10.2)
[2018-01-06] MEDS ORDERED: FUROSEMIDE 10 MG/ML 4 ML VIAL IV STA (09:28)
--- NOTE | 2018-01-06 10:20 | P.PN ---
Subjective This is a 62-year-old male patient of mine with a past medical history of hypertension and hypertensive cardiovascular disease, hyperlipidemia, history of chronic kidney disease stage 2, chronic tobacco use and dependence, history of hematuria, patient was complaining of an episode of and nausea vomiting and diarrhea about 3 weeks prior to the presentation and he was trying to come and see me in the office and the patient was seen yesterday by mid care provider, and laboratory evaluation were done since the patient did not have any lab done in a while due to financial issues, patient did have laboratory evaluation the form of the CMP and his potassium came back elevated at 6.2 and his BUN was elevated as well as creatinine so he was directed to the ER at [facility] he was seen in the emergency department he was given calcium gluconate, D50 with insulin, also was given nebulized treatment, and patient also was started on Kayexalate 45 g orally 1, he was placed on sodium bicarb and it drip , because he was severely acidotic with a bicarb level of 12 his creatinine was 7.3 his potassium went up to 7.3 patient was admitted to intensive care unit, he was seen in consultation by nephrology as well as by pulmonary medicine, and the patient had a Giordano catheter in due to an element of the obstruction as well , patient is sitting up in bed is feeling okay he denies any chest pain or shortness breath he has no bowel pain, nausea, vomiting. 01/04: BUN 106 and creatinine 6.2. Hemoglobin is stable at 7.4. ALEKS screen is positive, double-stranded DNA antibody negative, anti-DNA antibiotic interpretation is 1 which was negative and total complement 76 within normal range. Platelet count remains same at 111. Patient has been changed to overflow by Dr. Hernandez and can be moved out of the ICU today. He has been hemodynamically stable. Pulse ox is currently 93% on 6 L. Blood pressure is high this morning at 165/91. He has had good urine output. Giordano removed this morning. 01/05: Patient was evaluated today, BUN 101, creatinine 5.70, hemoglobin stable at 7.3, potassium 4.1. Blood pressure improved today 133/67, pulse ox 95% on 3 L supplemental nasal oxygen via cannula. He continues to have good urine output. Per nephrology's notes, may need a kidney biopsy if renal function does not improve further. 01/06: Patient was evaluated today, he denies any shortness of breath, chest pain , or dizziness. Vital signs are stable. Calcium noted to be 5.9, calcium carbonate 500 mg twice a day ordered, nephrology consult appreciated. Plans for kidney biopsy tomorrow, Lovenox and aspirin held. Kidney function slightly worsened from yesterday creatinine 6.02, BUN 100, free [place] chain 4.68, free lambda light chain 4.69, most likely elevated due to inflammation. Patient noted to have slightly worsened bilateral lower extremity pitting edema , 1 dose of IV Lasix 40 mg ordered. Objective - Vital Signs Vital signs: Vital Signs Temp 97.6 F 01/06/18 07:13 Pulse 77 01/06/18 07:13 Resp 18 01/06/18 07:13 BP 140/73 01/06/18 07:13 Pulse Ox 91 L 01/06/18 07:13 Intake & Output 01/05/18 01/06/18 01/06/18 18:59 06:59 18:59 Intake Total 520 550 Output Total 500 Balance 20 550 Weight 90.2 kg Intake: IV 270 Dextrose 5% in Water 1, 270 000 ml @ 60 mls/hr IV . [id number] FENG with Sodium Bicarb (1 Meq/ml) 150 ml Rx#:[id number] Intake, IV Titration 250 550 Amount Sodium Chloride 0.9% 1, 250 550 000 ml @ 50 mls/hr IV . Q20H [facility] Rx#:[id number] Output: Urine 500 Other: Voiding Method Urinal Urinal Urinal # Voids 1 2 - Exam - Exam General appearance: average body habitus, no acute distress - EENT Eyes: anicteric sclerae, EOMI, PERRLA, dentition normal, no ptosis, no scleral icterus, normal appearance ENT: hearing grossly normal, NA/AT, normal oropharynx, no thrush Ears: bilateral: normal - Neck Neck: no lymphadenopathy, normal ROM, no rigidity, no stridor, no thyromegaly Carotids: bilateral: upstroke normal Thyroid: bilateral: normal size - Respiratory Respiratory: bilateral: diminished, negative: dullness, rales, rhonchi, wheezing , prolonged expiration - Cardiovascular Rhythm: regular Heart sounds: normal: S1, S2 Abnormal Heart Sounds: systolic murmur, no S3 Gallop, no S4 Gallop - Gastrointestinal General gastrointestinal: normal bowel sounds, soft, no splenomegaly, no tenderness, no umbilical hernia, no ventral hernia - Integumentary Integumentary: normal, normal turgor - Neurologic Neurologic: CNII-XII intact - Musculoskeletal Musculoskeletal: generalized weakness, strength equal bilaterally - Psychiatric Psychiatric: A&O x's 3, appropriate affect, intact judgment & insight - Labs CBC & Chem 7: 01/06/18 07:42 01/06/18 07:42 Labs: Abnormal Lab Results - Last 24 Hours (Table) 01/03/18 01/05/18 01/06/18 Range/Units 12:16 05:41 07:42 RBC 2.78 L (4.30-5.90) m/uL Hgb 7.4 L (13.0-17.5) gm/dL Hct 24.5 L (39.0-53.0) % MCHC 30.3 L (31.0-37.0) g/dL RDW 16.0 H (11.5-15.5) % Plt Count 111 L (150-450) k/uL Lymphocytes # 0.9 L (1.0-4.8) k/uL Eosinophils # 1.0 H (0-0.7) k/uL Creatine Kinase 437 H (55-170) U/L Free [place] LC, Quant 4.68 H (0.33-1.94) mg/dL Free Lambda LC, Quant 4.69 H (0.57-2.63) mg/dL Assessment and Plan Plan: 1. Acute kidney injury on top of chronic kidney disease stage II secondary to acute tubular necrosis. Patient did receive Kayexalate 45 g orally 1, we'll continue to monitor potassium levels, he is slightly anemic, patient would need to be monitored very closely he was started already on PhosLo for hyperphosphatemia he was given calcium gluconate dextrose and insulin. Nephrology is following. Giuliana grimes. Plans for kidney biopsy tomorrow. 2. Hyperkalemia secondary to acute kidney injury. Improved, Patient did receive Kayexalate 45 g orally 1, calcium gluconate 2 g IV, D50 with insulin, albuterol nebulized treatment. 3. Hypocalcemia due to acute kidney injury. Status post calcium gluconate. Will continue on calcium carbonate 500 mg twice a day 4. Hyperphosphatemia. Continue the patient on PhosLo as ordered by nephrology. 5. Hypertension and hypertensive cardiovascular disease. Discontinue losartan and Lasix, continue metoprolol 50 grams orally twice every day as well as amlodipine 10 mg orally once every day. 6. Hyperlipidemia. Stable at this time. 7. Chronic tobacco use and dependence. Patient quit smoking about 2 weeks ago. 8. Anemia likely related to chronic kidney disease rule out other etiology. Transfuse for hemoglobin less than 7. 9. Thrombocytopenia. monitor CBC. 10. DVT prophylaxis. Lovenox 30 mg subcu convinced every 24 hours, on hold for kidney biopsy 11. GI prophylaxis. Protonix 40 mg orally once every day. 12. Patient is a full code. Discharge plan: Return home The above impression and plan of care have been discussed and directed by signing physician. Rosa Becerril nurse practitioner acting as scribe for signing physician.
[2018-01-06] MEDS: MUPIROCIN 2% OINT 22 GM TUBE TOPICAL SCH ×3 (10:42→21:50)
--- NOTE | 2018-01-06 13:25 | PN ---
PROGRESS NOTE Patient is seen for followup for acute kidney injury. His serum creatinine had improved to 5.7 yesterday. However, this morning it is again 6.02. The patient states overall he is feeling better than on admission. He denies any significant complaints. EXAMINATION: Blood pressure is 140/73, heart rate 77 per minute. He is afebrile. Examination of the heart: S1, S2. Examination lungs: Bilateral breath sounds are heard. Abdomen is soft, nontender. Examination lower extremity shows trace edema bilaterally. GARMENT CUTTER exam is grossly intact. LAB: Show sodium 141, potassium 4.3, chloride 105, CO2 is 21, BUN 100, serum creatinine 6.02, hemoglobin 7.4 g/dL. Phosphorus is down to 6.4, calcium is 5.9, vitamin D came back at 6. ASSESSMENT: 1. Acute kidney injury, rule out underlying glomerulonephritis. The patient was positive for ALEKS, complements are within normal range. All other serologies are negative. We will arrange for a kidney biopsy tomorrow or day after tomorrow. Patient will be given a dose of DDAVP prior to the biopsy. 2. Hypocalcemia secondary to severe nutrition with vitamin D deficiency. Start vitamin D supplementation. 3. Hyperphosphatemia from advanced renal failure, maintained on phosphate supplements, currently improved. 4. Anemia with no active bleeding noted, maintained on Aranesp. No significant iron deficiency noted. PLAN: Start vitamin D supplementation. Continue with Aranesp. Scheduled kidney biopsy over the next 1-2 days. We will give DDAVP at the time of the biopsy given the advanced renal failure. The patient will likely need to start dialysis if his renal function does not improve. MMODL / IJN: [id number] /
[2018-01-06] MEDS: ERGOCALCIFEROL 50,000 UNIT CAP PO SCH (14:00)
[2018-01-07] MEDS: SODIUM CHLORIDE 0.9% 1,000 ML IV SCH (02:48)
[2018-01-07 07:52] LABS: Basophils % (A) 0 %; Eosinophils # (A) 1.4 k/uL (0-0.7); Eosinophils % (A) 16 %; HGB 7.4 gm/dL (13.0-17.5); Hypochromasia Slight; Lymphocytes # (A) 0.9 k/uL (1.0-4.8); Lymphocytes % (A) 10 %; MCHC 30.8 g/dL (31.0-37.0); MCV 87.7 fL (80.0-100.0); Mean Platelet Volume 9.4; Monocytes # (A) 0.5 k/uL (0-1.0); Monocytes % (A) 6 %; Neutrophils # (A) 5.7 k/uL (1.3-7.7); Neutrophils % (A) 65 %; Platelet Count 106 k/uL (150-450); RBC 2.74 m/uL (4.30-5.90); RDW 15.8 % (11.5-15.5); WBC 8.7 k/uL (3.8-10.6)
[2018-01-07 08:13] LABS: Phosphorus 5.8 mg/dL (2.5-4.5); Potassium 4.4 mmol/L (3.5-5.1)
[2018-01-07 08:22] LABS: Calcium 6.2 mg/dL (8.4-10.2)
[2018-01-07] MEDS ORDERED: DESMOPRESSIN ACETATE 4 MCG/ML VIAL (MDV) IVPB PRN (09:07)
[2018-01-07] MEDS: PANTOPRAZOLE 40 MG TABLET PO SCH (09:17)
[2018-01-07] MEDS: amLODIPine 10 MG TAB PO SCH (09:17)
[2018-01-07] MEDS: METOPROLOL TARTRATE 50 MG TAB PO SCH ×2 (09:17→21:26)
[2018-01-07] MEDS: CALCIUM CARBONATE 500 MG CHEWABLE PO SCH ×2 (09:17→21:26)
[2018-01-07] MEDS: CALCIUM ACETATE 667 MG CAP PO SCH ×3 (09:17→17:06)
[2018-01-07] MEDS: TAMSULOSIN 0.4 MG CAP.ER.24H PO SCH (09:17)
[2018-01-07] MEDS: BRIMONIDINE TARTRATE 0.2% DROPS 5 ML BTL RIGHT EYE SCH (09:20)
[2018-01-07] MEDS: MUPIROCIN 2% OINT 22 GM TUBE TOPICAL SCH ×3 (09:20→21:26)
[2018-01-07] MEDS ORDERED: DESMOPRESSIN IVPB PRN (09:21)
[2018-01-07] MEDS ORDERED: SODIUM CHLORIDE 0.9% IVPB PRN (09:21)
[2018-01-07 09:23] LABS: Protein, Total 4.7 g/dL (6.2-8.2)
[2018-01-07] MEDS ORDERED: ALBUTEROL NEBULIZED 2.5 MG/3 ML INHALATION PRN (09:33)
[2018-01-07] MEDS ORDERED: IPRATROPIUM-ALBUTEROL 3 ML NEB INHALATION PRN (09:39)
[2018-01-07] MEDS ORDERED: IPRATROPIUM-ALBUTEROL 3 ML NEB INHALATION STA (09:39)
[2018-01-07 10:53] LABS: Gamma Globulin 0.43 g/dL (0.70-1.50)
--- NOTE | 2018-01-07 11:15 | P.PN ---
Subjective This is a 62-year-old male patient of mine with a past medical history of hypertension and hypertensive cardiovascular disease, hyperlipidemia, history of chronic kidney disease stage 2, chronic tobacco use and dependence, history of hematuria, patient was complaining of an episode of and nausea vomiting and diarrhea about 3 weeks prior to the presentation and he was trying to come and see me in the office and the patient was seen yesterday by mid care provider, and laboratory evaluation were done since the patient did not have any lab done in a while due to financial issues, patient did have laboratory evaluation the form of the CMP and his potassium came back elevated at 6.2 and his BUN was elevated as well as creatinine so he was directed to the ER at [facility] he was seen in the emergency department he was given calcium gluconate, D50 with insulin, also was given nebulized treatment, and patient also was started on Kayexalate 45 g orally 1, he was placed on sodium bicarb and it drip , because he was severely acidotic with a bicarb level of 12 his creatinine was 7.3 his potassium went up to 7.3 patient was admitted to intensive care unit, he was seen in consultation by nephrology as well as by pulmonary medicine, and the patient had a Giordano catheter in due to an element of the obstruction as well , patient is sitting up in bed is feeling okay he denies any chest pain or shortness breath he has no bowel pain, nausea, vomiting. 01/04: BUN 106 and creatinine 6.2. Hemoglobin is stable at 7.4. ALEKS screen is positive, double-stranded DNA antibody negative, anti-DNA antibiotic interpretation is 1 which was negative and total complement 76 within normal range. Platelet count remains same at 111. Patient has been changed to overflow by Dr. Hernandez and can be moved out of the ICU today. He has been hemodynamically stable. Pulse ox is currently 93% on 6 L. Blood pressure is high this morning at 165/91. He has had good urine output. Giordano removed this morning. 01/05: Patient was evaluated today, BUN 101, creatinine 5.70, hemoglobin stable at 7.3, potassium 4.1. Blood pressure improved today 133/67, pulse ox 95% on 3 L supplemental nasal oxygen via cannula. He continues to have good urine output. Per nephrology's notes, may need a kidney biopsy if renal function does not improve further. 01/06: Patient was evaluated today, he denies any shortness of breath, chest pain , or dizziness. Vital signs are stable. Calcium noted to be 5.9, calcium carbonate 500 mg twice a day ordered, nephrology consult appreciated. Plans for kidney biopsy tomorrow, Lovenox and aspirin held. Kidney function slightly worsened from yesterday creatinine 6.02, BUN 100, free [place] chain 4.68, free lambda light chain 4.69, most likely elevated due to inflammation. Patient noted to have slightly worsened bilateral lower extremity pitting edema , 1 dose of IV Lasix 40 mg ordered. 01/07: Patient was evaluated today, he is more short of breath today, he was noted to be slightly hypoxic at 90% on 2 L, O2 increased to 3 L he is now 94%. On exam he was noted to have expiratory wheezing, DuoNeb's, IV Solu-medrol and chest x-ray ordered, will also obtain a BNP. IV Lasix 40 mg twice a day 2 doses ordered. Nephrology plans on a kidney biopsy next 1-2 days. Kidney function slightly worse from yesterday creatinine 6.12, BUN 98, if kidney function continues to decline, he may need dialysis. Objective - Vital Signs Vital signs: Vital Signs Temp 97.7 F 01/07/18 07:23 Pulse 80 01/07/18 10:46 Resp 16 01/07/18 07:23 BP 164/80 01/07/18 07:23 Pulse Ox 94 L 01/07/18 07:23 Intake & Output 01/06/18 01/07/18 01/07/18 18:59 06:59 18:59 Intake Total 240 575 Balance 240 575 Weight 91.2 kg Intake: Intake, IV Titration 575 Amount Sodium Chloride 0.9% 1, 575 000 ml @ 50 mls/hr IV . Q20H [facility] Rx#:[id number] Oral 240 Other: Voiding Method Urinal Toilet Toilet Urinal Urinal # Voids 3 1 - Exam - Exam General appearance: average body habitus, no acute distress - EENT Eyes: anicteric sclerae, EOMI, PERRLA, dentition normal, no ptosis, no scleral icterus, normal appearance ENT: hearing grossly normal, NA/AT, normal oropharynx, no thrush Ears: bilateral: normal - Neck Neck: no lymphadenopathy, normal ROM, no rigidity, no stridor, no thyromegaly Carotids: bilateral: upstroke normal Thyroid: bilateral: normal size - Respiratory Respiratory: bilateral: diminished, expiratory wheeze, negative: dullness, rales , rhonchi, prolonged expiration - Cardiovascular Rhythm: regular Heart sounds: normal: S1, S2 Abnormal Heart Sounds: systolic murmur, no S3 Gallop, no S4 Gallop - Gastrointestinal General gastrointestinal: normal bowel sounds, soft, no splenomegaly, no tenderness, no umbilical hernia, no ventral hernia - Integumentary Integumentary: normal, normal turgor - Neurologic Neurologic: CNII-XII intact - Musculoskeletal Musculoskeletal: generalized weakness, strength equal bilaterally - Psychiatric Psychiatric: A&O x's 3, appropriate affect, intact judgment & insight - Labs CBC & Chem 7: 01/07/18 07:17 01/07/18 07:17 Labs: Abnormal Lab Results - Last 24 Hours (Table) 01/07/18 01/07/18 Range/Units 07:17 07:17 RBC 2.74 L (4.30-5.90) m/uL Hgb 7.4 L (13.0-17.5) gm/dL Hct 24.0 L (39.0-53.0) % MCHC 30.8 L (31.0-37.0) g/dL RDW 15.8 H (11.5-15.5) % Plt Count 106 L (150-450) k/uL Lymphocytes # 0.9 L (1.0-4.8) k/uL Eosinophils # 1.4 H (0-0.7) k/uL BUN 98 H* (9-20) mg/dL Creatinine 6.12 H* (0.66-1.25) mg/dL Calcium 6.2 L* (8.4-10.2) mg/dL Phosphorus 5.8 H (2.5-4.5) mg/dL Creatine Kinase 462 H (55-170) U/L Assessment and Plan Plan: 1. Acute kidney injury on top of chronic kidney disease stage II secondary to acute tubular necrosis. Patient did receive Kayexalate 45 g orally 1, we'll continue to monitor potassium levels, he is slightly anemic, patient would need to be monitored very closely he was started already on PhosLo for hyperphosphatemia he was given calcium gluconate dextrose and insulin. Nephrology is following. Giuliana removed. Plans for kidney biopsy within the next day or two. 2. Hyperkalemia secondary to acute kidney injury. Improved, Patient did receive Kayexalate 45 g orally 1, calcium gluconate 2 g IV, D50 with insulin, albuterol nebulized treatment. 3. Hypocalcemia due to acute kidney injury. Status post calcium gluconate. Will continue on calcium carbonate 500 mg twice a day 4. Hyperphosphatemia. Continue the patient on PhosLo as ordered by nephrology. 5. Hypertension and hypertensive cardiovascular disease. Discontinue losartan and Lasix, continue metoprolol 50 grams orally twice every day as well as amlodipine 10 mg orally once every day. 6. Hyperlipidemia. Stable at this time. 7. Chronic tobacco use and dependence. Patient quit smoking about 2 weeks ago. 8. Anemia likely related to chronic kidney disease rule out other etiology. Transfuse for hemoglobin less than 7, continue Aranesp 40 mcg SQ Q7D 9. Thrombocytopenia. monitor CBC. 10. DVT prophylaxis. Lovenox 30 mg subcu convinced every 24 hours, on hold for kidney biopsy 11. GI prophylaxis. Protonix 40 mg orally once every day. 12. Patient is a full code. Discharge plan: Return home The above impression and plan of care have been discussed and directed by signing physician. Rosa Becerril nurse practitioner acting as scribe for signing physician.
[2018-01-07] MEDS: methylPREDNISolone SOD SUCCI 125 MG/2 ML VIAL IV SCH ×2 (12:15→18:19)
[2018-01-07] MEDS: FUROSEMIDE 10 MG/ML 4 ML VIAL IV SCH ×2 (12:15→21:25)
--- NOTE | 2018-01-07 15:20 | XR ---
EXAMINATION TYPE: XR chest 2V DATE OF EXAM: 01/07/2018 COMPARISON: Chest x-ray from 3 days ago HISTORY: Worsening shortness of breath TECHNIQUE: Frontal and lateral views of the chest are obtained. FINDINGS: There is small moderate size left pleural effusion increased from prior with associated le ft basilar atelectasis and/or infiltrate. There is new small right pleural effusion. The cardiac herminia houette size is stable and mildly enlarged. Upper lungs remain clear without pneumothorax. The osse ous structures are intact. IMPRESSION: Mild cardiomegaly with new small right pleural effusion and increasing size small to mod erate-sized left pleural effusion with associated left basilar atelectasis and/or infiltrate all rede monstrated.
--- NOTE | 2018-01-07 19:56 | PN ---
PROGRESS NOTE The patient is seen for followup for acute kidney injury. The patient's renal function had improved slightly. However, the serum creatinine has stayed at 6 to 6.1 mg/dL over the weekend. The patient has not had any further improvement. His IV fluids have been decreased. I have had discussed kidney biopsy with the patient and his aspirin was just discontinued. Therefore, the kidney biopsy will need to be performed after at least 7 days of holding the off aspirin. He is also feeling poorly today with a poor appetite. There is evidence of mild volume overload and I have discussed with the patient regarding starting renal replacement therapy. The patient's family is present is at bedside, mainly 2 brothers. I also discussed with his daughter, Carmen, over the phone and they are in agreement to start dialysis. Patient continues to have good urine output and at this time, I am hoping this will be temporary. PHYSICAL EXAMINATION: On examination today, blood pressure was 164/80, heart rate 70 per minute. Patient is afebrile. Examination of the heart: S1, S2. Examination lungs: Bilateral breath sounds are heard. Abdomen is soft, nontender. Examination lower extremity shows edema trace bilaterally. LOCKER PLANT ATTENDANT exam is grossly intact. Patient does not have any asterixis. LAB: Shows sodium 141, potassium 4.4, BUN 98, serum creatinine 6.12, calcium is 6.2, phosphorus [place] 5.8[place] [address]. Vitamin D level was 6.0, hemoglobin 7.4 g/dL. ASSESSMENT: 1. 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 We will proceed with starting renal replacement therapy given the advanced renal failure and no further improvement. Patient is also mildly hypervolemic at this time with subtle symptoms of uremia. An initiation of dialysis will also help decreased the chances for bleeding with the of the kidney biopsy. We will plan for a kidney biopsy early next week as patient's aspirin was just discontinued. He will need at least 7 days to be off of the aspirin. We will give him DDAVP prior to the biopsy given his hemoglobin at 7.4 g/dL. 2. Hyperphosphatemia associated with advanced renal failure, currently improving. Patient is maintained on phosphate binders. 3. Hypocalcemia associated with severe nutrition vitamin D deficiency. Currently started on supplementation and TUMs. 4. Anemia, most likely anemia of chronic disease. There was no evidence of significant iron deficiency. The patient is maintained on Aranesp. 5. Benign prostate hypertrophy. Currently maintained on Flomax. PLAN: Consult Vascular Surgery for dialysis catheter placement. I will hold off on the steroids for now until the kidney biopsy is obtained. We will give a dose of DDAVP prior to the kidney biopsy. The patient will be dialyzed tomorrow and he will have a 2nd treatment on 01/09/2018. This is discussed with the patient and his family members who were present at bedside and I discussed this with his daughter, Carmen, over the phone as well. MMODL / IJN: [id number] /
--- NOTE | 2018-01-07 20:55 | ECHOF ---
Referral Reason:r/o CHF MEASUREMENTS -------- HEIGHT: 165.1 cm WEIGHT: 91.2 kg BP: 164/80 RVIDd: 2.4 cm (< 3.3) IVSd: 0.9 cm (0.6 - 1.1) LVIDd: 4.4 cm (3.9 - 5.3) LVPWd: 1.1 cm (0.6 - 1.1) IVSs: 1.4 cm LVIDs: 3.8 cm LVPWs: 1.5 cm LAESV Index (A-L): 50.24 ml/m Ao Diam: 3.2 cm (2.0 - 3.7) AV Cusp: 2.1 cm (1.5 - 2.6) LA Diam: 3.9 cm (2.7 - 3.8) EPSS: 1.4 cm MV E Joseph: 1.07 m/s MV DecT: 197 ms MV A Joseph: 1.04 m/s MV E/A Ratio: 1.03 RAP: 10.00 mmHg RVSP: 50.46 mmHg MV EF SLOPE: 70.40 mm/s (70 - 150) MV EXCURSION: 1.56 cm (> 18.000) FINDINGS -------- Sinus rhythm. This was a technically adequate study. The left ventricular size is normal. Left ventricular wall thickness is normal. Overall left vent ricular systolic function is normal with, an EF between 55 - 60 %. The right ventricle is normal in size and function. LA is severely dilated >40 ml/m2 RA appears enlarged. Aortic valve is trileaflet and is mildly thickened. There is no evidence of aortic regurgitation. There is no evidence of aortic stenosis. The mitral valve leaflets are mildly thickened. Mild mitral regurgitation is present. Olde-gx-wseiywob tricuspid regurgitation present. There is mild pulmonary hypertension. The right ventricular systolic pressure, as measured by Doppler, is 50.46mmHg. The pulmonic valve is normal. The aortic root size is normal. The IVC is dilated with normal collapse. There is a trivial pericardial effusion present. CONCLUSIONS -------- 1. Sinus rhythm. 2. This was a technically adequate study. 3. The left ventricular size is normal. 4. Left ventricular wall thickness is normal. 5. Overall left ventricular systolic function is normal with, an EF between 55 - 60 %. 6. LA is severely dilated >40 ml/m2 7. RA appears enlarged. 8. Aortic valve is trileaflet and is mildly thickened. 9. The mitral valve leaflets are mildly thickened. 10. Mild mitral regurgitation is present. 11. Hlrz-gn-dijtbjtd tricuspid regurgitation present. 12. There is mild pulmonary hypertension. 13. The right ventricular systolic pressure, as measured by Doppler, is 50.46mmHg. 14. The aortic root size is normal. 15. The IVC is dilated with normal collapse. 16. There is a trivial pericardial effusion present. PANELBOARD ASSEMBLER: Melquiades Stearns RDCS
[2018-01-07] MEDS ORDERED: FUROSEMIDE 10 MG/ML 4 ML VIAL IV SCH (21:00)
[2018-01-08] MEDS: IPRATROPIUM-ALBUTEROL 3 ML NEB INHALATION PRN (02:09)
[2018-01-08 07:46] LABS: Basophils % (A) 0 %; Eosinophils % (A) 0 %; HCT 23.7 % (39.0-53.0); HGB 7.6 gm/dL (13.0-17.5); Hypochromasia Slight; Lymphocytes # (A) 0.4 k/uL (1.0-4.8); Lymphocytes % (A) 7 %; MCH 27.6 pg (25.0-35.0); MCHC 31.9 g/dL (31.0-37.0); MCV 86.7 fL (80.0-100.0); Mean Platelet Volume 10.2; Monocytes # (A) 0.1 k/uL (0-1.0); Monocytes % (A) 2 %; Neutrophils # (A) 5.6 k/uL (1.3-7.7); Neutrophils % (A) 91 %; Platelet Count 109 k/uL (150-450); RBC 2.74 m/uL (4.30-5.90); RDW 15.7 % (11.5-15.5); WBC 6.2 k/uL (3.8-10.6)
[2018-01-08 07:51] LABS: Calcium 6.9 mg/dL (8.4-10.2); Phosphorus 6.4 mg/dL (2.5-4.5); Potassium 4.7 mmol/L (3.5-5.1)
[2018-01-08] MEDS: IPRATROPIUM-ALBUTEROL 3 ML NEB INHALATION SCH ×4 (08:25→19:23)
[2018-01-08] MEDS: CALCIUM ACETATE 667 MG CAP PO SCH ×3 (08:57→17:22)
[2018-01-08] MEDS: METOPROLOL TARTRATE 50 MG TAB PO SCH ×2 (08:57→21:55)
[2018-01-08] MEDS: amLODIPine 10 MG TAB PO SCH (08:58)
[2018-01-08] MEDS: TAMSULOSIN 0.4 MG CAP.ER.24H PO SCH (08:58)
[2018-01-08] MEDS: PANTOPRAZOLE 40 MG TABLET PO SCH (08:58)
[2018-01-08] MEDS: MUPIROCIN 2% OINT 22 GM TUBE TOPICAL SCH ×3 (08:58→21:55)
[2018-01-08] MEDS: BRIMONIDINE TARTRATE 0.2% DROPS 5 ML BTL RIGHT EYE SCH (08:58)
[2018-01-08] MEDS: CALCIUM CARBONATE 500 MG CHEWABLE PO SCH ×2 (08:58→21:55)
[2018-01-08] MEDS ORDERED: SODIUM CHLORIDE 0.9% 500 ML IV ONE (12:30)
[2018-01-08] MEDS ORDERED: MIDAZOLAM 2 MG/2 ML VIAL IV ONE (12:32)
[2018-01-08] MEDS ORDERED: LIDOCAINE 2% INJ 20 MG/ML (20 ML MDV) ONE ×2 (12:33→12:40)
[2018-01-08] MEDS ORDERED: MIDAZOLAM 2 MG/2 ML VIAL ONE (12:33)
[2018-01-08] MEDS ORDERED: LIDOCAINE 2% INJ 20 MG/ML SQ ONE ×2 (12:34→12:40)
[2018-01-08] MEDS ORDERED: HEPARIN SODIUM 1,000 UN/ML (10ML VL) ONE (12:50)
[2018-01-08] MEDS ORDERED: HEPARIN SODIUM 1,000 UN/ML (10ML VL) IV ONE (12:50)
--- NOTE | 2018-01-08 13:15 | P.GSHP ---
History of Present Illness 62-year-old white male, history of acute chronic renal failure with history of high B and and potassium patient was treated medically to bring the potassium down I was consulted for placement of a dialysis catheter. History of diabetes hypertension coronary artery disease patient had some urinary retention and had a Giordano catheter placed Medical history no history of diabetes coronary artery disease hypertension Surgical history no history of any surgical intervention Neck examination neck is supple no bruit appreciated Chest clear first and second sound normal Abdomen soft nontender vascular examination brachial radial femoral pulses are present Impression is acute chronic renal failure plan is placement of the dialysis catheter risk and complication discussed bleeding infection thrombosis Past Medical History Past Medical History: COPD, GERD/Reflux, GI Bleed, Hyperlipidemia, Hypertension , Osteoarthritis (OA), Prostate Disorder Additional Past Medical History / Comment(s): Chronic lower extremity edema, decreased urinary stream lately, 1992 somach ulcer with hematemesis. History of Any Multi-Drug Resistant Organisms: None Reported Past Surgical History: No Surgical Hx Reported Additional Past Surgical History / Comment(s): EGD Past Anesthesia/Blood Transfusion Reactions: No Reported Reaction Additional Past Anesthesia/Blood Transfusion Reaction / Comment(s): Pt received blood years ago with his stomach ulcer bleed-no reaction. Smoking Status: Former smoker (patient is about 2 pack every day his now quit smoking about 2 weeks ago he smoked since he was 26-year-old.) - Past Family History Father Family Medical History: Asthma Additional Family Medical History / Comment(s): Father at the age of 64yrs. Mother Family Medical History: Myocardial Infarction (CT) Additional Family Medical History / Comment(s): Mother had a CT sometime prior to age 60yrs. She is 86yrs old. Brother(s) Family Medical History: No Reported History (patient has 6 brothers no major problems) Sister(s) Family Medical History: No Reported History (patient has 2 sisters no major medical problems.) Son(s) Family Medical History: No Reported History (patient has 2 sons no major medical problems) Daughter(s) Family Medical History: No Reported History (patient has one daughter no major medical problems.) Medications and Allergies Home Medications Medication Instructions Recorded Confirmed Type Aspirin EC [Ecotrin Low Dose] 81 mg PO DAILY 01/02/18 01/02/18 History Furosemide [Lasix] 40 mg PO DAILY 01/02/18 01/02/18 History Losartan Potassium 100 mg PO DAILY 01/02/18 01/02/18 History Metoprolol Tartrate [Lopressor] 50 mg PO BID 01/02/18 01/02/18 History Ranitidine HCl [Zantac] 75 mg PO DAILY PRN 01/02/18 01/02/18 History amLODIPine BESYLATE [Norvasc] 10 mg PO DAILY 01/02/18 01/02/18 History Allergies Allergy/AdvReac Type Severity Reaction Status Date / Time No Known Allergies Allergy Verified 01/02/18 19:24 Surgical - Exam Vital Signs Temp Pulse Resp BP Pulse Ox 97.3 F L 61 18 142/69 99 01/02/18 17:46 01/02/18 17:46 01/02/18 17:46 01/02/18 17:46 01/02/18 17:46 Results - Labs 01/08/18 07:19 01/08/18 07:19 Abnormal Lab Results - Last 24 Hours (Table) 01/07/18 01/08/18 01/08/18 Range/Units 07:17 07:19 07:19 RBC 2.74 L (4.30-5.90) m/uL Hgb 7.6 L (13.0-17.5) gm/dL Hct 23.7 L (39.0-53.0) % RDW 15.7 H (11.5-15.5) % Plt Count 109 L (150-450) k/uL Lymphocytes # 0.4 L (1.0-4.8) k/uL Carbon Dioxide 19 L (22-30) mmol/L BUN 106 H* (9-20) mg/dL Creatinine 6.22 H* (0.66-1.25) mg/dL Glucose 164 H (74-99) mg/dL Calcium 6.9 L (8.4-10.2) mg/dL Phosphorus 6.4 H (2.5-4.5) mg/dL Creatine Kinase 416 H (55-170) U/L IgE 115.00 H (0.00-114.00) IU/mL Diabetes panel 01/08/18 Range/Units 07:19 Sodium 138 (137-145) mmol/L Potassium 4.7 (3.5-5.1) mmol/L Chloride 103 (98-107) mmol/L Carbon Dioxide 19 L (22-30) mmol/L BUN 106 H* (9-20) mg/dL Creatinine 6.22 H* (0.66-1.25) mg/dL Glucose 164 H (74-99) mg/dL Calcium 6.9 L (8.4-10.2) mg/dL Calcium panel 01/08/18 Range/Units 07:19 Calcium 6.9 L (8.4-10.2) mg/dL Phosphorus 6.4 H (2.5-4.5) mg/dL Pituitary panel 01/08/18 Range/Units 07:19 Sodium 138 (137-145) mmol/L Potassium 4.7 (3.5-5.1) mmol/L Chloride 103 (98-107) mmol/L Carbon Dioxide 19 L (22-30) mmol/L BUN 106 H* (9-20) mg/dL Creatinine 6.22 H* (0.66-1.25) mg/dL Glucose 164 H (74-99) mg/dL Calcium 6.9 L (8.4-10.2) mg/dL Adrenal panel 01/08/18 Range/Units 07:19 Sodium 138 (137-145) mmol/L Potassium 4.7 (3.5-5.1) mmol/L Chloride 103 (98-107) mmol/L Carbon Dioxide 19 L (22-30) mmol/L BUN 106 H* (9-20) mg/dL Creatinine 6.22 H* (0.66-1.25) mg/dL Glucose 164 H (74-99) mg/dL Calcium 6.9 L (8.4-10.2) mg/dL
--- NOTE | 2018-01-08 14:22 | XR ---
EXAMINATION TYPE: XR chest 1V DATE OF EXAM: 01/08/2018 HISTORY: Verify Dialysis Cath Placement COMPARISON: 01/17/2019 TECHNIQUE: Single view of the chest is submitted. FINDINGS: Right-sided dialysis catheter has its distal tip overlying the SVC. No evidence for pneumothorax. Demonstrated are scattered senescent parenchymal change. Left basilar opacity may reflect atelectasis/ infiltrate with effusion. The heart is stable. Hilar and mediastinal structures are within normal limits. Degenerative changes are seen of the dorsal spine. IMPRESSION: 1. Right-sided dialysis catheter has its distal tip overlying the SVC. No evidence for pneumothorax.
--- NOTE | 2018-01-08 15:03 | P.PN ---
Subjective Progress Note Date: 01/08/18 This is a 62-year-old male patient of mine with a past medical history of hypertension and hypertensive cardiovascular disease, hyperlipidemia, history of chronic kidney disease stage 2, chronic tobacco use and dependence, history of hematuria, patient was complaining of an episode of and nausea vomiting and diarrhea about 3 weeks prior to the presentation and he was trying to come and see me in the office and the patient was seen yesterday by mid care provider, and laboratory evaluation were done since the patient did not have any lab done in a while due to financial issues, patient did have laboratory evaluation the form of the CMP and his potassium came back elevated at 6.2 and his BUN was elevated as well as creatinine so he was directed to the ER at [facility] he was seen in the emergency department he was given calcium gluconate, D50 with insulin, also was given nebulized treatment, and patient also was started on Kayexalate 45 g orally 1, he was placed on sodium bicarb and it drip , because he was severely acidotic with a bicarb level of 12 his creatinine was 7.3 his potassium went up to 7.3 patient was admitted to intensive care unit, he was seen in consultation by nephrology as well as by pulmonary medicine, and the patient had a Giordano catheter in due to an element of the obstruction as well , patient is sitting up in bed is feeling okay he denies any chest pain or shortness breath he has no bowel pain, nausea, vomiting. 01/04: BUN 106 and creatinine 6.2. Hemoglobin is stable at 7.4. ALEKS screen is positive, double-stranded DNA antibody negative, anti-DNA antibiotic interpretation is 1 which was negative and total complement 76 within normal range. Platelet count remains same at 111. Patient has been changed to overflow by Dr. Hernandez and can be moved out of the ICU today. He has been hemodynamically stable. Pulse ox is currently 93% on 6 L. Blood pressure is high this morning at 165/91. He has had good urine output. Giordano removed this morning. 01/05: Patient was evaluated today, BUN 101, creatinine 5.70, hemoglobin stable at 7.3, potassium 4.1. Blood pressure improved today 133/67, pulse ox 95% on 3 L supplemental nasal oxygen via cannula. He continues to have good urine output. Per nephrology's notes, may need a kidney biopsy if renal function does not improve further. 01/06: Patient was evaluated today, he denies any shortness of breath, chest pain , or dizziness. Vital signs are stable. Calcium noted to be 5.9, calcium carbonate 500 mg twice a day ordered, nephrology consult appreciated. Plans for kidney biopsy tomorrow, Lovenox and aspirin held. Kidney function slightly worsened from yesterday creatinine 6.02, BUN 100, free [place] chain 4.68, free lambda light chain 4.69, most likely elevated due to inflammation. Patient noted to have slightly worsened bilateral lower extremity pitting edema , 1 dose of IV Lasix 40 mg ordered. 01/07: Patient was evaluated today, he is more short of breath today, he was noted to be slightly hypoxic at 90% on 2 L, O2 increased to 3 L he is now 94%. On exam he was noted to have expiratory wheezing, DuoNeb's, IV Solu-medrol and chest x-ray ordered, will also obtain a BNP. IV Lasix 40 mg twice a day 2 doses ordered. Nephrology plans on a kidney biopsy next 1-2 days. Kidney function slightly worse from yesterday creatinine 6.12, BUN 98, if kidney function continues to decline, he may need dialysis. 01/08: Patient is going for hemodialysis catheter placement. Patient is to start hemodialysis today. Regarding renal biopsy, this will be scheduled for Sunday as aspirin will be off for 7 days. Objective - Vital Signs Vital signs: Vital Signs Temp 97.1 F L 01/08/18 11:12 Pulse 80 01/08/18 11:35 Resp 16 01/08/18 11:35 BP 150/70 01/08/18 11:12 Pulse Ox 94 L 01/08/18 11:25 Intake & Output 01/07/18 01/08/18 01/08/18 18:59 06:59 18:59 Intake Total 400 50 Balance 400 50 Intake: IV 50 Intake, IV Titration 400 Amount Sodium Chloride 0.9% 1, 400 000 ml @ 50 mls/hr IV . Q20H [facility] Rx#:[id number] Other: Voiding Method Toilet Toilet Toilet Urinal Urinal Urinal # Voids 2 - Exam General appearance: average body habitus, no acute distress - EENT Eyes: anicteric sclerae, EOMI, PERRLA, dentition normal, no ptosis, no scleral icterus, normal appearance ENT: hearing grossly normal, NA/AT, normal oropharynx, no thrush Ears: bilateral: normal - Neck Neck: no lymphadenopathy, normal ROM, no rigidity, no stridor, no thyromegaly Carotids: bilateral: upstroke normal Thyroid: bilateral: normal size - Respiratory Respiratory: bilateral: diminished, negative: dullness, rales, rhonchi, wheezing , prolonged expiration - Cardiovascular Rhythm: regular Heart sounds: normal: S1, S2 Abnormal Heart Sounds: systolic murmur, no S3 Gallop, no S4 Gallop - Gastrointestinal General gastrointestinal: normal bowel sounds, soft, no splenomegaly, no tenderness, no umbilical hernia, no ventral hernia - Integumentary Integumentary: normal, normal turgor - Neurologic Neurologic: CNII-XII intact - Musculoskeletal Musculoskeletal: generalized weakness, strength equal bilaterally - Psychiatric Psychiatric: A&O x's 3, appropriate affect, intact judgment & insight - Labs CBC & Chem 7: 01/08/18 07:19 01/08/18 07:19 Labs: Abnormal Lab Results - Last 24 Hours (Table) 01/07/18 01/08/18 01/08/18 Range/Units 07:17 07:19 07:19 RBC 2.74 L (4.30-5.90) m/uL Hgb 7.6 L (13.0-17.5) gm/dL Hct 23.7 L (39.0-53.0) % RDW 15.7 H (11.5-15.5) % Plt Count 109 L (150-450) k/uL Lymphocytes # 0.4 L (1.0-4.8) k/uL Carbon Dioxide 19 L (22-30) mmol/L BUN 106 H* (9-20) mg/dL Creatinine 6.22 H* (0.66-1.25) mg/dL Glucose 164 H (74-99) mg/dL Calcium 6.9 L (8.4-10.2) mg/dL Phosphorus 6.4 H (2.5-4.5) mg/dL Creatine Kinase 416 H (55-170) U/L IgE 115.00 H (0.00-114.00) IU/mL Assessment and Plan Plan: 1. Acute kidney injury and top of chronic kidney disease stage II secondary to acute tubular necrosis. Patient was started on IV bicarbonate drip, patient did receive Kayexalate 45 g orally 1, we'll repeat his potassium level again patient does have hematuria and proteinuria, and he appears to be anemic at 7.4 , patient would need to be monitored very closely he was started already on PhosLo for hyperphosphatemia he was given calcium gluconate dextrose and insulin. Nephrology is following. Giordano removed. Renal biopsy on Sunday. Patient is off aspirin. 2. Hyperkalemia secondary to acute kidney injury. Patient did receive Kayexalate 45 g orally 1, calcium gluconate 2 g IV, D50 with insulin, albuterol nebulized treatment. 3. Hypocalcemia due to acute kidney injury. Status post calcium gluconate. 4. Hyperphosphatemia. Continue the patient on PhosLo as ordered by nephrology. 5. Hypertension and hypertensive cardiovascular disease. Discontinue losartan and Lasix, continue metoprolol 50 grams orally twice every day as well as amlodipine 10 mg orally once every day. 6. Hyperlipidemia. Stable at this time. 7. Chronic tobacco use and dependence. Patient quit smoking about 2 weeks ago. 8. Anemia likely related to chronic kidney disease rule out other etiology. Transfuse for hemoglobin less than 7. His current hemoglobin 7.4. 9. Thrombocytopenia. Repeat CBC tomorrow morning. 10. DVT prophylaxis. Lovenox 30 mg subcu convinced every 24 hours. 11. GI prophylaxis. Protonix 40 mg orally once every day. 12. Patient is a full code. Discharge plan: Return home Impression and plan of care have been directed as dictated by the signing physician. Anita Amaya nurse practitioner acting as scribe for signing physician.
--- NOTE | 2018-01-08 17:18 | PN ---
PROGRESS NOTE The patient is seen for followup for acute kidney injury. He has had his PermCath placed today. Patient will be dialyzed today. He will have a 2nd treatment of hemodialysis again in a.m. The patient tentatively will have a kidney biopsy early next week, possibly on Sunday. He is maintained on IV Lasix. He states his breathing is slightly improved; however, he does have dyspnea on exertion and gets quite shortness of breath on walking to the bathroom. PHYSICAL EXAMINATION: Blood pressure is 130/61, heart rate 76 per minute. He is afebrile. Examination of the heart: S1, S2. Examination lungs: Bilateral breath sounds are heard. Abdomen is soft, nontender. Examination of lower extremities shows edema trace bilaterally. Abdomen is soft. [employer]NA[employer] exam is grossly intact. No asterixis are noted. LABS: Show sodium 138, potassium 4.7, BUN 106, serum creatinine 6.2, hemoglobin 7.6 g/dL. ASSESSMENT: 1. 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 The patient will have a kidney biopsy next week as his aspirin was discontinued about 6 years ago. The patient is scheduled for hemodialysis today as well as in a.m. 2. Volume overload. Continue with IV Lasix. Will trial ultrafiltration of about 1- 1.5 L a day and in a.m. 3. Anemia with no significant iron deficiency, mainly anemia of chronic disease, maintained on Aranesp. 4. Hypertension, fairly controlled. Maintained on Norvasc. PLAN: Hemodialysis today with UF of about 1-1.5 L today as well as in a.m. and tentatively scheduled for kidney biopsy on Sunday. MMRAMONAL / JUSTINN: [id number] /
[2018-01-09 00:45] LABS: Hepatitis B Surface AB- Quant 373.9 mIU/mL
[2018-01-09] MEDS: IPRATROPIUM-ALBUTEROL 3 ML NEB INHALATION PRN (04:16)
[2018-01-09] MEDS: METOPROLOL TARTRATE 50 MG TAB PO SCH ×2 (07:21→20:32)
[2018-01-09] MEDS: amLODIPine 10 MG TAB PO SCH (07:21)
[2018-01-09] MEDS: TAMSULOSIN 0.4 MG CAP.ER.24H PO SCH (07:21)
[2018-01-09] MEDS: CALCIUM ACETATE 667 MG CAP PO SCH ×3 (07:21→17:38)
[2018-01-09] MEDS: CALCIUM CARBONATE 500 MG CHEWABLE PO SCH ×2 (07:21→20:32)
[2018-01-09] MEDS: PANTOPRAZOLE 40 MG TABLET PO SCH (07:21)
[2018-01-09] MEDS: MUPIROCIN 2% OINT 22 GM TUBE TOPICAL SCH ×3 (07:22→20:32)
[2018-01-09] MEDS: BRIMONIDINE TARTRATE 0.2% DROPS 5 ML BTL RIGHT EYE SCH (07:22)
[2018-01-09] MEDS: IPRATROPIUM-ALBUTEROL 3 ML NEB INHALATION SCH ×4 (08:36→19:50)
[2018-01-09] MEDS ORDERED: HEPARIN SODIUM,PORCINE 5,000 UNIT/ML 1 ML VIAL ONE (11:00)
[2018-01-09 11:11] LABS: Anisocytosis Slight; HCT 23.2 % (39.0-53.0); HGB 7.3 gm/dL (13.0-17.5); Hypochromasia Slight; MCH 27.3 pg (25.0-35.0); MCHC 31.2 g/dL (31.0-37.0); MCV 87.2 fL (80.0-100.0); Mean Platelet Volume 9.4; Platelet Count 139 k/uL (150-450); RBC 2.66 m/uL (4.30-5.90); RDW 16.4 % (11.5-15.5); WBC 13.2 k/uL (3.8-10.6)
--- NOTE | 2018-01-09 13:07 | PN ---
PROGRESS NOTE The patient is seen for followup for acute kidney injury. He is currently seen on dialysis. The patient states he is feeling better after dialysis yesterday. PHYSICAL EXAMINATION: On examination, blood pressure was 133/89, heart rate 79 per minute. Patient is afebrile. EXAMINATION OF THE HEART: S1, S2. EXAMINATION OF THE LUNGS: Bilateral breath sounds are heard. Abdomen is soft, nontender. Examination of lower extremities shows trace edema bilaterally, more on the right side than on the left. LABS: Labs are not available from today. ASSESSMENT: 1. 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 We will need to schedule this particularly if he will be discharged and we will maintain the patient on dialysis. This needs to be set up as outpatient. 2. Anemia of chronic disease, maintained on Aranesp. 3. Hyperphosphatemia secondary to renal failure, maintained on phosphate binders. 4. Hypervolemia and fluid overload, currently improved with continued dialysis. PLAN: Hemodialysis today as well as in a.m. if patient is discharged over the weekend, we will need to arrange for kidney biopsy as outpatient. This should be set up prior to his discharge. The patient should also receive DDAVP at the time of the biopsy. MMODL / IJN: [id number] /
[2018-01-09] MEDS: ERGOCALCIFEROL 50,000 UNIT CAP PO SCH (14:10)
[2018-01-09 15:07] LABS: Calcium 7.4 mg/dL (8.4-10.2); Potassium 4.4 mmol/L (3.5-5.1)
--- NOTE | 2018-01-09 15:14 | P.PN ---
Subjective Progress Note Date: 01/09/18 This is a 62-year-old male patient of mine with a past medical history of hypertension and hypertensive cardiovascular disease, hyperlipidemia, history of chronic kidney disease stage 2, chronic tobacco use and dependence, history of hematuria, patient was complaining of an episode of and nausea vomiting and diarrhea about 3 weeks prior to the presentation and he was trying to come and see me in the office and the patient was seen yesterday by mid care provider, and laboratory evaluation were done since the patient did not have any lab done in a while due to financial issues, patient did have laboratory evaluation the form of the CMP and his potassium came back elevated at 6.2 and his BUN was elevated as well as creatinine so he was directed to the ER at [facility] he was seen in the emergency department he was given calcium gluconate, D50 with insulin, also was given nebulized treatment, and patient also was started on Kayexalate 45 g orally 1, he was placed on sodium bicarb and it drip , because he was severely acidotic with a bicarb level of 12 his creatinine was 7.3 his potassium went up to 7.3 patient was admitted to intensive care unit, he was seen in consultation by nephrology as well as by pulmonary medicine, and the patient had a Giordano catheter in due to an element of the obstruction as well , patient is sitting up in bed is feeling okay he denies any chest pain or shortness breath he has no bowel pain, nausea, vomiting. 01/04: BUN 106 and creatinine 6.2. Hemoglobin is stable at 7.4. ALEKS screen is positive, double-stranded DNA antibody negative, anti-DNA antibiotic interpretation is 1 which was negative and total complement 76 within normal range. Platelet count remains same at 111. Patient has been changed to overflow by Dr. Hernandez and can be moved out of the ICU today. He has been hemodynamically stable. Pulse ox is currently 93% on 6 L. Blood pressure is high this morning at 165/91. He has had good urine output. Giordano removed this morning. 01/05: Patient was evaluated today, BUN 101, creatinine 5.70, hemoglobin stable at 7.3, potassium 4.1. Blood pressure improved today 133/67, pulse ox 95% on 3 L supplemental nasal oxygen via cannula. He continues to have good urine output. Per nephrology's notes, may need a kidney biopsy if renal function does not improve further. 01/06: Patient was evaluated today, he denies any shortness of breath, chest pain , or dizziness. Vital signs are stable. Calcium noted to be 5.9, calcium carbonate 500 mg twice a day ordered, nephrology consult appreciated. Plans for kidney biopsy tomorrow, Lovenox and aspirin held. Kidney function slightly worsened from yesterday creatinine 6.02, BUN 100, free [place] chain 4.68, free lambda light chain 4.69, most likely elevated due to inflammation. Patient noted to have slightly worsened bilateral lower extremity pitting edema , 1 dose of IV Lasix 40 mg ordered. 01/07: Patient was evaluated today, he is more short of breath today, he was noted to be slightly hypoxic at 90% on 2 L, O2 increased to 3 L he is now 94%. On exam he was noted to have expiratory wheezing, DuoNeb's, IV Solu-medrol and chest x-ray ordered, will also obtain a BNP. IV Lasix 40 mg twice a day 2 doses ordered. Nephrology plans on a kidney biopsy next 1-2 days. Kidney function slightly worse from yesterday creatinine 6.12, BUN 98, if kidney function continues to decline, he may need dialysis. 01/08: Patient is going for hemodialysis catheter placement. Patient is to start hemodialysis today. Regarding renal biopsy, this will be scheduled for Sunday as aspirin will be off for 7 days. 01/09: Patient had PermCath placed with Dr. Robledo yesterday and started dialysis. Patient is scheduled for repeat dialysis today and again for tomorrow morning. Patient denies any new complaints and he is anxious to be discharged home. Patient is known to have increased IgE and to have outpatient evaluation for hypersensitivity pneumonitis and asthma. Hepatitis B surface antibody is reactive with quantitative 373.9... Objective - Vital Signs Vital signs: Vital Signs Temp 97.9 F 01/09/18 07:20 Pulse 63 01/09/18 08:45 Resp 18 01/09/18 07:20 BP 133/89 01/09/18 07:20 Pulse Ox 94 L 01/09/18 08:36 Intake & Output 01/08/18 01/09/18 01/09/18 18:59 06:59 18:59 Intake Total 50 590 Balance 50 590 Intake: IV 50 Oral 590 Other: Voiding Method Toilet Toilet Toilet Urinal Urinal Urinal # Voids 2 1 - Exam General appearance: average body habitus, no acute distress - EENT Eyes: anicteric sclerae, EOMI, PERRLA, dentition normal, no ptosis, no scleral icterus, normal appearance ENT: hearing grossly normal, NA/AT, normal oropharynx, no thrush Ears: bilateral: normal - Neck Neck: no lymphadenopathy, normal ROM, no rigidity, no stridor, no thyromegaly Carotids: bilateral: upstroke normal Thyroid: bilateral: normal size - Respiratory Respiratory: bilateral: diminished, negative: dullness, rales, rhonchi, wheezing , prolonged expiration - Cardiovascular Rhythm: regular Heart sounds: normal: S1, S2 Abnormal Heart Sounds: systolic murmur, no S3 Gallop, no S4 Gallop - Gastrointestinal General gastrointestinal: normal bowel sounds, soft, no splenomegaly, no tenderness, no umbilical hernia, no ventral hernia - Integumentary Integumentary: normal, normal turgor - Neurologic Neurologic: CNII-XII intact - Musculoskeletal Musculoskeletal: generalized weakness, strength equal bilaterally - Psychiatric Psychiatric: A&O x's 3, appropriate affect, intact judgment & insight - Labs CBC & Chem 7: 01/09/18 10:50 01/08/18 07:19 Labs: Abnormal Lab Results - Last 24 Hours (Table) 01/08/18 Range/Units 07:19 Hep Bs Antibody Reactive H (Non-Reactive) Assessment and Plan Plan: 1. Acute kidney injury and top of chronic kidney disease stage II secondary to acute tubular necrosis. Patient was started on IV bicarbonate drip, patient did receive Kayexalate 45 g orally 1, we'll repeat his potassium level again patient does have hematuria and proteinuria, and he appears to be anemic at 7.4 , patient would need to be monitored very closely he was started already on PhosLo for hyperphosphatemia he was given calcium gluconate dextrose and insulin. Nephrology is following. Giordano removed. Renal biopsy on Sunday. Patient is off aspirin. PermCath placed by Dr. Robledo. Patient started dialysis. Plan is for renal biopsy on Sunday most likely as an outpatient. 2. Hyperkalemia secondary to acute kidney injury. Patient did receive Kayexalate 45 g orally 1, calcium gluconate 2 g IV, D50 with insulin, albuterol nebulized treatment. 3. Hypocalcemia due to acute kidney injury. Status post calcium gluconate. 4. Hyperphosphatemia. Continue the patient on PhosLo as ordered by nephrology. 5. Hypertension and hypertensive cardiovascular disease. Discontinue losartan and Lasix, continue metoprolol 50 grams orally twice every day as well as amlodipine 10 mg orally once every day. 6. Hyperlipidemia. Stable at this time. 7. Chronic tobacco use and dependence. Patient quit smoking about 2 weeks ago. 8. Anemia likely related to chronic kidney disease rule out other etiology. Transfuse for hemoglobin less than 7. His current hemoglobin 7.4. 9. Thrombocytopenia. Repeat CBC tomorrow morning. 10. DVT prophylaxis. Lovenox 30 mg subcu convinced every 24 hours. 11. GI prophylaxis. Protonix 40 mg orally once every day. 12. Patient is a full code. Discharge plan: Return home Impression and plan of care have been directed as dictated by the signing physician. Anita Amaya nurse practitioner acting as scribe for signing physician.
[2018-01-09] MEDS: BUDESONIDE 0.5 MG/2 ML NEBU INHALATION SCH (19:50)
[2018-01-10] MEDS: BUDESONIDE 0.5 MG/2 ML NEBU INHALATION SCH ×2 (07:18→19:11)
[2018-01-10] MEDS: IPRATROPIUM-ALBUTEROL 3 ML NEB INHALATION SCH ×4 (07:18→19:11)
[2018-01-10 07:36] LABS: Anisocytosis Slight; HCT 25.3 % (39.0-53.0); HGB 7.7 gm/dL (13.0-17.5); Hypochromasia Moderate; MCH 27.4 pg (25.0-35.0); MCHC 30.6 g/dL (31.0-37.0); MCV 89.3 fL (80.0-100.0); Mean Platelet Volume 10.2; Platelet Count 143 k/uL (150-450); RBC 2.83 m/uL (4.30-5.90); RDW 16.7 % (11.5-15.5); WBC 11.1 k/uL (3.8-10.6)
[2018-01-10 07:47] LABS: Calcium 7.1 mg/dL (8.4-10.2); Potassium 4.5 mmol/L (3.5-5.1)
[2018-01-10] MEDS: CALCIUM CARBONATE 500 MG CHEWABLE PO SCH ×2 (08:57→20:50)
[2018-01-10] MEDS: BRIMONIDINE TARTRATE 0.2% DROPS 5 ML BTL RIGHT EYE SCH (08:58)
[2018-01-10] MEDS: PANTOPRAZOLE 40 MG TABLET PO SCH (08:58)
[2018-01-10] MEDS: CALCIUM ACETATE 667 MG CAP PO SCH ×3 (08:58→17:08)
[2018-01-10] MEDS: amLODIPine 10 MG TAB PO SCH (08:58)
[2018-01-10] MEDS: TAMSULOSIN 0.4 MG CAP.ER.24H PO SCH (08:58)
[2018-01-10] MEDS: METOPROLOL TARTRATE 50 MG TAB PO SCH ×2 (08:59→20:50)
[2018-01-10] MEDS: MUPIROCIN 2% OINT 22 GM TUBE TOPICAL SCH ×3 (08:59→20:50)
[2018-01-10] MEDS ORDERED: FUROSEMIDE 10 MG/ML 10 ML VIAL IV STA (09:55)
[2018-01-10 10:28] VITALS: BMI 33.4
[2018-01-10 12:09] LABS: Alpha 1 Anti-Trypsin 237 mg/dL (90 - 200)
--- NOTE | 2018-01-10 13:59 | PN ---
PROGRESS NOTE Patient is seen for followup for acute kidney injury. He has had two treatments of hemodialysis. Patient is scheduled for his third treatment today. Volume status is slightly improved, although patient remains mildly short of breath. On examination, blood pressure was 148/69, heart rate 77 per minute, patient is afebrile. Examination of the heart, S1, S2. Examination of the lungs, decreased breath sounds at the bases. Abdomen is soft, nontender. Examination of the lower extremities shows edema trace bilaterally. [employer] exam is grossly intact. No asterixis is noted. LAB DATA: Sodium 140, potassium 4.5, chloride 103, BUN 66, serum creatinine 3.98. ASSESSMENT: 1. 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 Patient has about 5 g of proteinuria. His ALEKS was positive. He will be scheduled for a kidney biopsy on Sunday. This needs to be set up as outpatient if the patient will be discharged over the weekend. He also needs to be set up for outpatient dialysis. 2. Volume overload, currently improved and will give him a dose of IV Lasix today and we can maintain the patient on oral Lasix as well. 3. Anemia, multifactorial with no evidence of iron deficiency, mainly anemia of chronic disease maintained on Aranesp. No active bleeding noted. 4. Hyperphosphatemia. Start patient on phosphate binders. PLAN: Start phosphate binders, hemodialysis today and patient needs to be set up for a CT biopsy on Sunday. I will add IV Lasix x1 and maintain patient on oral Lasix which he can continue as outpatient. MMODL / IJN: [id number] /
--- NOTE | 2018-01-10 14:55 | P.PN ---
Subjective Progress Note Date: 01/10/18 This is a 62-year-old male patient of mine with a past medical history of hypertension and hypertensive cardiovascular disease, hyperlipidemia, history of chronic kidney disease stage 2, chronic tobacco use and dependence, history of hematuria, patient was complaining of an episode of and nausea vomiting and diarrhea about 3 weeks prior to the presentation and he was trying to come and see me in the office and the patient was seen yesterday by mid care provider, and laboratory evaluation were done since the patient did not have any lab done in a while due to financial issues, patient did have laboratory evaluation the form of the CMP and his potassium came back elevated at 6.2 and his BUN was elevated as well as creatinine so he was directed to the ER at [facility] he was seen in the emergency department he was given calcium gluconate, D50 with insulin, also was given nebulized treatment, and patient also was started on Kayexalate 45 g orally 1, he was placed on sodium bicarb and it drip , because he was severely acidotic with a bicarb level of 12 his creatinine was 7.3 his potassium went up to 7.3 patient was admitted to intensive care unit, he was seen in consultation by nephrology as well as by pulmonary medicine, and the patient had a Giordano catheter in due to an element of the obstruction as well , patient is sitting up in bed is feeling okay he denies any chest pain or shortness breath he has no bowel pain, nausea, vomiting. 01/04: BUN 106 and creatinine 6.2. Hemoglobin is stable at 7.4. ALEKS screen is positive, double-stranded DNA antibody negative, anti-DNA antibiotic interpretation is 1 which was negative and total complement 76 within normal range. Platelet count remains same at 111. Patient has been changed to overflow by Dr. Hernandez and can be moved out of the ICU today. He has been hemodynamically stable. Pulse ox is currently 93% on 6 L. Blood pressure is high this morning at 165/91. He has had good urine output. Giordano removed this morning. 01/05: Patient was evaluated today, BUN 101, creatinine 5.70, hemoglobin stable at 7.3, potassium 4.1. Blood pressure improved today 133/67, pulse ox 95% on 3 L supplemental nasal oxygen via cannula. He continues to have good urine output. Per nephrology's notes, may need a kidney biopsy if renal function does not improve further. 01/06: Patient was evaluated today, he denies any shortness of breath, chest pain , or dizziness. Vital signs are stable. Calcium noted to be 5.9, calcium carbonate 500 mg twice a day ordered, nephrology consult appreciated. Plans for kidney biopsy tomorrow, Lovenox and aspirin held. Kidney function slightly worsened from yesterday creatinine 6.02, BUN 100, free [place] chain 4.68, free lambda light chain 4.69, most likely elevated due to inflammation. Patient noted to have slightly worsened bilateral lower extremity pitting edema , 1 dose of IV Lasix 40 mg ordered. 01/07: Patient was evaluated today, he is more short of breath today, he was noted to be slightly hypoxic at 90% on 2 L, O2 increased to 3 L he is now 94%. On exam he was noted to have expiratory wheezing, DuoNeb's, IV Solu-medrol and chest x-ray ordered, will also obtain a BNP. IV Lasix 40 mg twice a day 2 doses ordered. Nephrology plans on a kidney biopsy next 1-2 days. Kidney function slightly worse from yesterday creatinine 6.12, BUN 98, if kidney function continues to decline, he may need dialysis. 01/08: Patient is going for hemodialysis catheter placement. Patient is to start hemodialysis today. Regarding renal biopsy, this will be scheduled for Sunday as aspirin will be off for 7 days. 01/09: Patient had PermCath placed with Dr. Robledo yesterday and started dialysis. Patient is scheduled for repeat dialysis today and again for tomorrow morning. Patient denies any new complaints and he is anxious to be discharged home. Patient is known to have increased IgE and to have outpatient evaluation for hypersensitivity pneumonitis and asthma. Hepatitis B surface antibody is reactive with quantitative 373.9... 01/10: Repeat BUN 66 and creatinine 3.98. Patient is undergoing hemodialysis now. Patient is planned to start on Sunday as an outpatient. Because patient was unable to have kidney biopsy done until the end of the month, discharge was held and patient will undergo kidney biopsy on Sunday while hospitalized. Patient is agreeable. Objective - Vital Signs Vital signs: Vital Signs Temp 98 F 01/10/18 06:45 Pulse 72 01/10/18 07:32 Resp 18 01/10/18 06:45 BP 148/69 01/10/18 06:45 Pulse Ox 95 01/10/18 07:18 Intake & Output 01/09/18 01/10/18 01/10/18 18:59 06:59 18:59 Other: Voiding Method Toilet Urinal # Voids 1 1 - Exam General appearance: average body habitus, no acute distress - EENT Eyes: anicteric sclerae, EOMI, PERRLA, dentition normal, no ptosis, no scleral icterus, normal appearance ENT: hearing grossly normal, NA/AT, normal oropharynx, no thrush Ears: bilateral: normal - Neck Neck: no lymphadenopathy, normal ROM, no rigidity, no stridor, no thyromegaly Carotids: bilateral: upstroke normal Thyroid: bilateral: normal size - Respiratory Respiratory: bilateral: diminished, negative: dullness, rales, rhonchi, wheezing , prolonged expiration - Cardiovascular Rhythm: regular Heart sounds: normal: S1, S2 Abnormal Heart Sounds: systolic murmur, no S3 Gallop, no S4 Gallop - Gastrointestinal General gastrointestinal: normal bowel sounds, soft, no splenomegaly, no tenderness, no umbilical hernia, no ventral hernia - Integumentary Integumentary: normal, normal turgor - Neurologic Neurologic: CNII-XII intact - Musculoskeletal Musculoskeletal: generalized weakness, strength equal bilaterally - Psychiatric Psychiatric: A&O x's 3, appropriate affect, intact judgment & insight - Labs CBC & Chem 7: 01/10/18 07:09 01/10/18 07:09 Labs: Abnormal Lab Results - Last 24 Hours (Table) 01/09/18 01/09/18 01/10/18 Range/Units 10:50 14:16 07:09 WBC 13.2 H 11.1 H (3.8-10.6) k/uL RBC 2.66 L 2.83 L (4.30-5.90) m/uL Hgb 7.3 L 7.7 L (13.0-17.5) gm/dL Hct 23.2 L 25.3 L (39.0-53.0) % MCHC 30.6 L (31.0-37.0) g/dL RDW 16.4 H 16.7 H (11.5-15.5) % Plt Count 139 L 143 L (150-450) k/uL BUN 54 H (9-20) mg/dL Creatinine 3.40 H (0.66-1.25) mg/dL Glucose 158 H (74-99) mg/dL Calcium 7.4 L (8.4-10.2) mg/dL 01/10/18 Range/Units 07:09 WBC (3.8-10.6) k/uL RBC (4.30-5.90) m/uL Hgb (13.0-17.5) gm/dL Hct (39.0-53.0) % MCHC (31.0-37.0) g/dL RDW (11.5-15.5) % Plt Count (150-450) k/uL BUN 66 H (9-20) mg/dL Creatinine 3.98 H (0.66-1.25) mg/dL Glucose 100 H (74-99) mg/dL Calcium 7.1 L (8.4-10.2) mg/dL Assessment and Plan Plan: 1. Acute kidney injury and top of chronic kidney disease stage II secondary to acute tubular necrosis. Patient was started on IV bicarbonate drip, patient did receive Kayexalate 45 g orally 1, we'll repeat his potassium level again patient does have hematuria and proteinuria, and he appears to be anemic at 7.4 , patient would need to be monitored very closely he was started already on PhosLo for hyperphosphatemia he was given calcium gluconate dextrose and insulin. Nephrology is following. Giordano removed. Renal biopsy on Sunday. Patient is off aspirin. PermCath placed by Dr. Robledo. Patient started dialysis. Plan is for renal biopsy on Sunday as an inpatient. 2. Hyperkalemia secondary to acute kidney injury. Patient did receive Kayexalate 45 g orally 1, calcium gluconate 2 g IV, D50 with insulin, albuterol nebulized treatment. 3. Hypocalcemia due to acute kidney injury. Status post calcium gluconate. 4. Hyperphosphatemia. Continue the patient on PhosLo as ordered by nephrology. 5. Hypertension and hypertensive cardiovascular disease. Discontinue losartan and Lasix, continue metoprolol 50 grams orally twice every day as well as amlodipine 10 mg orally once every day. 6. Hyperlipidemia. Stable at this time. 7. Chronic tobacco use and dependence. Patient quit smoking about 2 weeks ago. 8. Anemia likely related to chronic kidney disease rule out other etiology. Transfuse for hemoglobin less than 7. His current hemoglobin 7.4. 9. Thrombocytopenia. Repeat CBC tomorrow morning. 10. DVT prophylaxis. Lovenox 30 mg subcu convinced every 24 hours. 11. GI prophylaxis. Protonix 40 mg orally once every day. 12. Patient is a full code. Discharge plan: Return home Impression and plan of care have been directed as dictated by the signing physician. Anita Amaya nurse practitioner acting as scribe for signing physician.
[2018-01-11 07:32] LABS: Anisocytosis Slight; HCT 25.2 % (39.0-53.0); HGB 7.9 gm/dL (13.0-17.5); Hypochromasia Moderate; MCH 27.9 pg (25.0-35.0); MCHC 31.3 g/dL (31.0-37.0); Mean Platelet Volume 9.3; Platelet Count 145 k/uL (150-450); RBC 2.83 m/uL (4.30-5.90); RDW 16.8 % (11.5-15.5); WBC 10.4 k/uL (3.8-10.6)
[2018-01-11] MEDS: IPRATROPIUM-ALBUTEROL 3 ML NEB INHALATION SCH ×4 (07:40→21:09)
[2018-01-11] MEDS: BUDESONIDE 0.5 MG/2 ML NEBU INHALATION SCH ×2 (07:40→21:09)
[2018-01-11 07:45] LABS: Calcium 7.3 mg/dL (8.4-10.2); Potassium 3.9 mmol/L (3.5-5.1)
[2018-01-11] MEDS: FUROSEMIDE 20 MG TAB PO SCH (07:58)
[2018-01-11] MEDS: amLODIPine 10 MG TAB PO SCH (07:58)
[2018-01-11] MEDS: METOPROLOL TARTRATE 50 MG TAB PO SCH ×2 (07:58→21:12)
[2018-01-11] MEDS: PANTOPRAZOLE 40 MG TABLET PO SCH (07:58)
[2018-01-11] MEDS: CALCIUM CARBONATE 500 MG CHEWABLE PO SCH ×2 (07:59→21:12)
[2018-01-11] MEDS: TAMSULOSIN 0.4 MG CAP.ER.24H PO SCH (07:59)
[2018-01-11] MEDS: CALCIUM ACETATE 667 MG CAP PO SCH ×3 (07:59→18:20)
[2018-01-11] MEDS: BRIMONIDINE TARTRATE 0.2% DROPS 5 ML BTL RIGHT EYE SCH (10:39)
[2018-01-11] MEDS: MUPIROCIN 2% OINT 22 GM TUBE TOPICAL SCH ×3 (10:40→21:10)
--- NOTE | 2018-01-11 12:08 | PN ---
PROGRESS NOTE Patient is seen for followup for acute kidney injury, currently maintained on dialysis. Patient has had 3 treatments of hemodialysis. He is feeling better. He is scheduled for a kidney biopsy next week on Sunday. This will be done as inpatient. Patient will be dialyzed tomorrow. He has also been volume overloaded and currently improved. PHYSICAL EXAMINATION: Today, this morning blood pressure was 141/72, heart rate 80 per minute. Patient is afebrile. Examination of the heart, S1, S2. Examination of the lungs, bilateral breath sounds are heard. Abdomen is soft, nontender. Examination of the lower extremities shows no significant edema. [employer] exam is grossly intact. LABS: 1. Today show serum creatinine 3.56, sodium 141, potassium 3.9, hemoglobin was 7.9 g/dL. ASSESSMENT: 1. 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 2. Uremia, volume overload. Currently maintained on dialysis. Patient has had 3 treatments. We will dialyze him tomorrow. We will give him a break today. The patient will need to continue outpatient renal replacement therapy upon discharge. 3. Volume overload, currently improved. Continue with oral Lasix. 4. Hypertension with fair control. 5. Anemia, most likely anemia of chronic disease maintained on Aranesp. The patient is not iron deficient. No evidence of active bleeding. 6. Hyperphosphatemia. Maintained on PhosLo. 7. Nutritional vitamin D deficiency, maintained on vitamin D supplementation. PLAN: Hemodialysis in a.m. and kidney biopsy on Sunday. MMODL / IJN: [id number] /
--- NOTE | 2018-01-11 14:18 | P.PN ---
Subjective Progress Note Date: 01/11/18 This is a 62-year-old male patient of mine with a past medical history of hypertension and hypertensive cardiovascular disease, hyperlipidemia, history of chronic kidney disease stage 2, chronic tobacco use and dependence, history of hematuria, patient was complaining of an episode of and nausea vomiting and diarrhea about 3 weeks prior to the presentation and he was trying to come and see me in the office and the patient was seen yesterday by mid care provider, and laboratory evaluation were done since the patient did not have any lab done in a while due to financial issues, patient did have laboratory evaluation the form of the CMP and his potassium came back elevated at 6.2 and his BUN was elevated as well as creatinine so he was directed to the ER at [facility] he was seen in the emergency department he was given calcium gluconate, D50 with insulin, also was given nebulized treatment, and patient also was started on Kayexalate 45 g orally 1, he was placed on sodium bicarb and it drip , because he was severely acidotic with a bicarb level of 12 his creatinine was 7.3 his potassium went up to 7.3 patient was admitted to intensive care unit, he was seen in consultation by nephrology as well as by pulmonary medicine, and the patient had a Giordano catheter in due to an element of the obstruction as well , patient is sitting up in bed is feeling okay he denies any chest pain or shortness breath he has no bowel pain, nausea, vomiting. 01/04: BUN 106 and creatinine 6.2. Hemoglobin is stable at 7.4. ALEKS screen is positive, double-stranded DNA antibody negative, anti-DNA antibiotic interpretation is 1 which was negative and total complement 76 within normal range. Platelet count remains same at 111. Patient has been changed to overflow by Dr. Hernandez and can be moved out of the ICU today. He has been hemodynamically stable. Pulse ox is currently 93% on 6 L. Blood pressure is high this morning at 165/91. He has had good urine output. Giordano removed this morning. 01/05: Patient was evaluated today, BUN 101, creatinine 5.70, hemoglobin stable at 7.3, potassium 4.1. Blood pressure improved today 133/67, pulse ox 95% on 3 L supplemental nasal oxygen via cannula. He continues to have good urine output. Per nephrology's notes, may need a kidney biopsy if renal function does not improve further. 01/06: Patient was evaluated today, he denies any shortness of breath, chest pain , or dizziness. Vital signs are stable. Calcium noted to be 5.9, calcium carbonate 500 mg twice a day ordered, nephrology consult appreciated. Plans for kidney biopsy tomorrow, Lovenox and aspirin held. Kidney function slightly worsened from yesterday creatinine 6.02, BUN 100, free [place] chain 4.68, free lambda light chain 4.69, most likely elevated due to inflammation. Patient noted to have slightly worsened bilateral lower extremity pitting edema , 1 dose of IV Lasix 40 mg ordered. 01/07: Patient was evaluated today, he is more short of breath today, he was noted to be slightly hypoxic at 90% on 2 L, O2 increased to 3 L he is now 94%. On exam he was noted to have expiratory wheezing, DuoNeb's, IV Solu-medrol and chest x-ray ordered, will also obtain a BNP. IV Lasix 40 mg twice a day 2 doses ordered. Nephrology plans on a kidney biopsy next 1-2 days. Kidney function slightly worse from yesterday creatinine 6.12, BUN 98, if kidney function continues to decline, he may need dialysis. 01/08: Patient is going for hemodialysis catheter placement. Patient is to start hemodialysis today. Regarding renal biopsy, this will be scheduled for Sunday as aspirin will be off for 7 days. 01/09: Patient had PermCath placed with Dr. Robledo yesterday and started dialysis. Patient is scheduled for repeat dialysis today and again for tomorrow morning. Patient denies any new complaints and he is anxious to be discharged home. Patient is known to have increased IgE and to have outpatient evaluation for hypersensitivity pneumonitis and asthma. Hepatitis B surface antibody is reactive with quantitative 373.9... 01/10: Repeat BUN 66 and creatinine 3.98. Patient is undergoing hemodialysis now. Patient is planned to start on Sunday as an outpatient. Because patient was unable to have kidney biopsy done until the end of the month, discharge was held and patient will undergo kidney biopsy on Sunday while hospitalized. Patient is agreeable. 01/11: Repeat hemoglobin 7.9, BUN 44 and creatinine 3.56. Patient is scheduled for repeat hemodialysis in the morning and possibly after kidney biopsy on [place]. He denies any new complaints. Patient will be staying until he can have kidney biopsy on Sunday. Objective - Vital Signs Vital signs: Vital Signs Temp 98.4 F 01/11/18 07:28 Pulse 84 01/11/18 08:04 Resp 16 01/11/18 07:28 BP 141/72 01/11/18 07:28 Pulse Ox 92 L 01/11/18 07:40 Intake & Output 01/10/18 01/11/18 01/11/18 18:59 06:59 18:59 Intake Total 500 400 Output Total 500 Balance 0 400 Weight 91.2 kg Intake: Oral 500 400 Output: Urine 500 Other: Voiding Method Toilet Toilet # Voids 2 2 - Exam General appearance: average body habitus, no acute distress - EENT Eyes: anicteric sclerae, EOMI, PERRLA, dentition normal, no ptosis, no scleral icterus, normal appearance ENT: hearing grossly normal, NA/AT, normal oropharynx, no thrush Ears: bilateral: normal - Neck Neck: no lymphadenopathy, normal ROM, no rigidity, no stridor, no thyromegaly Carotids: bilateral: upstroke normal Thyroid: bilateral: normal size - Respiratory Respiratory: bilateral: diminished, negative: dullness, rales, rhonchi, wheezing , prolonged expiration - Cardiovascular Rhythm: regular Heart sounds: normal: S1, S2 Abnormal Heart Sounds: systolic murmur, no S3 Gallop, no S4 Gallop - Gastrointestinal General gastrointestinal: normal bowel sounds, soft, no splenomegaly, no tenderness, no umbilical hernia, no ventral hernia - Integumentary Integumentary: normal, normal turgor - Neurologic Neurologic: CNII-XII intact - Musculoskeletal Musculoskeletal: generalized weakness, strength equal bilaterally - Psychiatric Psychiatric: A&O x's 3, appropriate affect, intact judgment & insight - Labs CBC & Chem 7: 01/11/18 07:07 01/11/18 07:07 Labs: Abnormal Lab Results - Last 24 Hours (Table) 01/07/18 01/11/18 01/11/18 Range/Units 07:17 07:07 07:07 RBC 2.83 L (4.30-5.90) m/uL Hgb 7.9 L (13.0-17.5) gm/dL Hct 25.2 L (39.0-53.0) % RDW 16.8 H (11.5-15.5) % Plt Count 145 L (150-450) k/uL BUN 44 H (9-20) mg/dL Creatinine 3.56 H (0.66-1.25) mg/dL Calcium 7.3 L (8.4-10.2) mg/dL [id number] 237 H (90 - 200) mg/dL Assessment and Plan Plan: 1. Acute kidney injury and top of chronic kidney disease stage II secondary to acute tubular necrosis. Patient was started on IV bicarbonate drip, patient did receive Kayexalate 45 g orally 1, we'll repeat his potassium level again patient does have hematuria and proteinuria, and he appears to be anemic at 7.4 , patient would need to be monitored very closely he was started already on PhosLo for hyperphosphatemia he was given calcium gluconate dextrose and insulin. Nephrology is following. Giordano removed. Renal biopsy on Sunday. Patient is off aspirin. PermCath placed by Dr. Robledo. Patient started dialysis. Plan is for renal biopsy on Sunday as an inpatient. 2. Hyperkalemia secondary to acute kidney injury. Patient did receive Kayexalate 45 g orally 1, calcium gluconate 2 g IV, D50 with insulin, albuterol nebulized treatment. 3. Hypocalcemia due to acute kidney injury. Status post calcium gluconate. 4. Hyperphosphatemia. Continue the patient on PhosLo as ordered by nephrology. 5. Hypertension and hypertensive cardiovascular disease. Discontinue losartan and Lasix, continue metoprolol 50 grams orally twice every day as well as amlodipine 10 mg orally once every day. 6. Hyperlipidemia. Stable at this time. 7. Chronic tobacco use and dependence. Patient quit smoking about 2 weeks ago. 8. Anemia likely related to chronic kidney disease rule out other etiology. Transfuse for hemoglobin less than 7. His current hemoglobin 7.4. 9. Thrombocytopenia. Repeat CBC tomorrow morning. 10. DVT prophylaxis. Lovenox 30 mg subcu convinced every 24 hours. 11. GI prophylaxis. Protonix 40 mg orally once every day. 12. Patient is a full code. Discharge plan: Return home and Sunday after renal biopsy Impression and plan of care have been directed as dictated by the signing physician. Anita Amaya nurse practitioner acting as scribe for signing physician.
[2018-01-12] MEDS: METOPROLOL TARTRATE 50 MG TAB PO SCH ×2 (08:07→22:23)
[2018-01-12] MEDS: PANTOPRAZOLE 40 MG TABLET PO SCH (08:07)
[2018-01-12] MEDS: CALCIUM ACETATE 667 MG CAP PO SCH ×3 (08:07→17:35)
[2018-01-12] MEDS: FUROSEMIDE 20 MG TAB PO SCH (08:07)
[2018-01-12] MEDS: CALCIUM CARBONATE 500 MG CHEWABLE PO SCH ×2 (08:07→22:23)
[2018-01-12] MEDS: TAMSULOSIN 0.4 MG CAP.ER.24H PO SCH (08:08)
[2018-01-12] MEDS: amLODIPine 10 MG TAB PO SCH (08:08)
[2018-01-12] MEDS: BRIMONIDINE TARTRATE 0.2% DROPS 5 ML BTL RIGHT EYE SCH (08:08)
[2018-01-12] MEDS: MUPIROCIN 2% OINT 22 GM TUBE TOPICAL SCH ×3 (08:09→20:37)
[2018-01-12] MEDS: ERGOCALCIFEROL 50,000 UNIT CAP PO SCH (08:10)
[2018-01-12] MEDS: IPRATROPIUM-ALBUTEROL 3 ML NEB INHALATION SCH ×4 (08:42→20:51)
[2018-01-12] MEDS: BUDESONIDE 0.5 MG/2 ML NEBU INHALATION SCH ×2 (08:42→20:51)
[2018-01-12] MEDS ORDERED: SODIUM FERRIC GLUCONAT-SUCROSE 125 MG in SODIUM CHLORIDE 0.9% 100 ML IVPB ONE (11:42)
--- NOTE | 2018-01-12 12:06 | P.PN ---
Subjective Patient is seen in follow-up for acute kidney injury. He is currently hemodialysis dependent and underwent hemodialysis this morning. He is noted to have 5 g of proteinuria with a positive ALEKS and is scheduled for a kidney biopsy on Sunday. He tolerated dialysis well. Denies any chest pain or shortness of breath. Oral intake is good. No active complaints at this time. Vital signs are stable. General: The patient appeared well nourished and normally developed. HEENT: Head exam is unremarkable. Neck is without jugular venous distension. LUNGS: Lungs are clear to auscultation and percussion. Breath sounds decreased. HEART: Rate and Rhythm are regular. First and second heart sounds normal. No murmurs, rubs or gallops. ABDOMEN: Abdominal exam reveals normal bowel sounds. Non-tender and non- distended. No evidence of peritonitis. EXTREMITITES: No clubbing, cyanosis, or edema. Objective - Vital Signs Vital signs: Vital Signs Temp 98.0 F 01/12/18 05:09 Pulse 84 01/12/18 09:01 Resp 16 01/12/18 05:09 BP 150/70 01/12/18 05:09 Pulse Ox 95 01/12/18 08:44 Intake & Output 01/11/18 01/12/18 01/12/18 18:59 06:59 18:59 Other: Voiding Method Toilet Toilet # Voids 2 2 - Labs CBC & Chem 7: 01/11/18 07:07 01/11/18 07:07 Assessment and Plan Plan: Assessment: 1. Nonoliguric acute kidney injury likely related to underlying glomerulonephritis. Patient does have nephrotic range proteinuria along with positive GEORGE and is scheduled for a kidney biopsy on Sunday. Currently hemodialysis dependent. 2. Anemia of chronic kidney disease maintained on Aranesp. Mild iron deficiency noted. 3. Hyperphosphatemia secondary to acute kidney injury. Maintained on PhosLo. 4. Benign hypertension. Controlled. 5. Volume overload. Improved with dialysis. 6. Vitamin D deficiency maintained on supplementation. Plan: Next hemodialysis on Sunday prior to kidney biopsy to help prevent uremic bleed. Maintain Lasix 60 mg once daily. Ferrlecit 125 mg IV once today.
--- NOTE | 2018-01-12 16:58 | P.PN ---
Subjective Progress Note Date: 01/12/18 This is a 62-year-old male patient of mine with a past medical history of hypertension and hypertensive cardiovascular disease, hyperlipidemia, history of chronic kidney disease stage 2, chronic tobacco use and dependence, history of hematuria, patient was complaining of an episode of and nausea vomiting and diarrhea about 3 weeks prior to the presentation and he was trying to come and see me in the office and the patient was seen yesterday by mid care provider, and laboratory evaluation were done since the patient did not have any lab done in a while due to financial issues, patient did have laboratory evaluation the form of the CMP and his potassium came back elevated at 6.2 and his BUN was elevated as well as creatinine so he was directed to the ER at [facility] he was seen in the emergency department he was given calcium gluconate, D50 with insulin, also was given nebulized treatment, and patient also was started on Kayexalate 45 g orally 1, he was placed on sodium bicarb and it drip , because he was severely acidotic with a bicarb level of 12 his creatinine was 7.3 his potassium went up to 7.3 patient was admitted to intensive care unit, he was seen in consultation by nephrology as well as by pulmonary medicine, and the patient had a Giordano catheter in due to an element of the obstruction as well , patient is sitting up in bed is feeling okay he denies any chest pain or shortness breath he has no bowel pain, nausea, vomiting. 01/04: BUN 106 and creatinine 6.2. Hemoglobin is stable at 7.4. ALEKS screen is positive, double-stranded DNA antibody negative, anti-DNA antibiotic interpretation is 1 which was negative and total complement 76 within normal range. Platelet count remains same at 111. Patient has been changed to overflow by Dr. Hernandez and can be moved out of the ICU today. He has been hemodynamically stable. Pulse ox is currently 93% on 6 L. Blood pressure is high this morning at 165/91. He has had good urine output. Giordano removed this morning. 01/05: Patient was evaluated today, BUN 101, creatinine 5.70, hemoglobin stable at 7.3, potassium 4.1. Blood pressure improved today 133/67, pulse ox 95% on 3 L supplemental nasal oxygen via cannula. He continues to have good urine output. Per nephrology's notes, may need a kidney biopsy if renal function does not improve further. 01/06: Patient was evaluated today, he denies any shortness of breath, chest pain , or dizziness. Vital signs are stable. Calcium noted to be 5.9, calcium carbonate 500 mg twice a day ordered, nephrology consult appreciated. Plans for kidney biopsy tomorrow, Lovenox and aspirin held. Kidney function slightly worsened from yesterday creatinine 6.02, BUN 100, free [place] chain 4.68, free lambda light chain 4.69, most likely elevated due to inflammation. Patient noted to have slightly worsened bilateral lower extremity pitting edema , 1 dose of IV Lasix 40 mg ordered. 01/07: Patient was evaluated today, he is more short of breath today, he was noted to be slightly hypoxic at 90% on 2 L, O2 increased to 3 L he is now 94%. On exam he was noted to have expiratory wheezing, DuoNeb's, IV Solu-medrol and chest x-ray ordered, will also obtain a BNP. IV Lasix 40 mg twice a day 2 doses ordered. Nephrology plans on a kidney biopsy next 1-2 days. Kidney function slightly worse from yesterday creatinine 6.12, BUN 98, if kidney function continues to decline, he may need dialysis. 01/08: Patient is going for hemodialysis catheter placement. Patient is to start hemodialysis today. Regarding renal biopsy, this will be scheduled for Sunday as aspirin will be off for 7 days. 01/09: Patient had PermCath placed with Dr. Robledo yesterday and started dialysis. Patient is scheduled for repeat dialysis today and again for tomorrow morning. Patient denies any new complaints and he is anxious to be discharged home. Patient is known to have increased IgE and to have outpatient evaluation for hypersensitivity pneumonitis and asthma. Hepatitis B surface antibody is reactive with quantitative 373.9... 01/10: Repeat BUN 66 and creatinine 3.98. Patient is undergoing hemodialysis now. Patient is planned to start on Sunday as an outpatient. Because patient was unable to have kidney biopsy done until the end of the month, discharge was held and patient will undergo kidney biopsy on Sunday while hospitalized. Patient is agreeable. 01/11: Repeat hemoglobin 7.9, BUN 44 and creatinine 3.56. Patient is scheduled for repeat hemodialysis in the morning and possibly after kidney biopsy on Sunday. He denies any new complaints. Patient will be staying until he can have kidney biopsy on Sunday. 01/12. Repeat hemoglobin pending. Creatinine pending. Status post one dose of ferric gluconate. Patient feels better denies any abdominal pain nausea, vomiting, abdominal pain. Kidney biopsy scheduled for Sunday Objective - Vital Signs Vital signs: Vital Signs Temp 98.2 F 01/12/18 15:00 Pulse 80 01/12/18 15:00 Resp 16 01/12/18 15:00 BP 134/58 01/12/18 15:00 Pulse Ox 96 01/12/18 15:00 Intake & Output 01/11/18 01/12/18 01/12/18 18:59 06:59 18:59 Intake Total 100 Balance 100 Intake: Intake, IV Titration 100 Amount Sodium Ferric Gluconat- 100 Sucrose 125 mg In Sodium Chloride 0.9% 100 ml @ 100 mls/hr IVPB ONCE ONE Rx#:[id number] Other: Voiding Method Toilet Toilet # Voids 2 2 - Constitutional General appearance: Present: average body habitus, no acute distress - EENT Eyes: Present: EOMI, PERRLA ENT: Present: normal oropharynx Ears: bilateral: normal - Neck Neck: Present: normal ROM. Absent: lymphadenopathy Carotids: bilateral: upstroke normal Thyroid: bilateral: normal size - Respiratory Respiratory: bilateral: CTA, negative: diminished, dullness, prolonged expiration - Cardiovascular Rhythm: regular Heart sounds: normal: S1, S2 Abnormal Heart Sounds: Absent: systolic murmur, diastolic murmur, rub - Peripheral edema foot Peripheral Edema: bilateral: None - Gastrointestinal General gastrointestinal: Present: normal bowel sounds, soft. Absent: distended , tenderness - Integumentary Integumentary: Absent: calor, cyanotic - Neurologic Neurologic: Present: CNII-XII intact - Musculoskeletal Musculoskeletal: Present: gait normal, strength equal bilaterally - Psychiatric Psychiatric: Present: A&O x's 3, appropriate affect - Labs CBC & Chem 7: 01/11/18 07:07 01/11/18 07:07 Assessment and Plan Plan: 1. Acute kidney injury and top of chronic kidney disease stage II secondary to acute tubular necrosis. Patient was started on IV bicarbonate drip, patient did receive Kayexalate 45 g orally 1, we'll repeat his potassium level again patient does have hematuria and proteinuria, and he appears to be anemic at 7.4 , patient would need to be monitored very closely he was started already on PhosLo for hyperphosphatemia he was given calcium gluconate dextrose and insulin. Nephrology is following. Giordano removed. Renal biopsy on Sunday. Patient is off aspirin. PermCath placed by Dr. Robledo. Patient started dialysis. Plan is for renal biopsy on Sunday as an inpatient. 2. Hyperkalemia secondary to acute kidney injury. Patient did receive Kayexalate 45 g orally 1, calcium gluconate 2 g IV, D50 with insulin, albuterol nebulized treatment. 3. Hypocalcemia due to acute kidney injury. Status post calcium gluconate. 4. Hyperphosphatemia. Continue the patient on PhosLo as ordered by nephrology. 5. Hypertension and hypertensive cardiovascular disease. Discontinue losartan and Lasix, continue metoprolol 50 grams orally twice every day as well as amlodipine 10 mg orally once every day. 6. Hyperlipidemia. Stable at this time. 7. Chronic tobacco use and dependence. Patient quit smoking about 2 weeks ago. 8. Anemia likely related to chronic kidney disease rule out other etiology. Transfuse for hemoglobin less than 7. His current hemoglobin pending. Ferric gluconate X1 9. Thrombocytopenia. Repeat CBC tomorrow morning. 10. DVT prophylaxis. Lovenox 30 mg subcu convinced every 24 hours. 11. GI prophylaxis. Protonix 40 mg orally once every day. 12. Patient is a full code. Discharge plan: Return home and Sunday after renal biopsy
[2018-01-12] MEDS: DARBEPOETIN ALFA 40 MCG/0.4 ML SYRINGE SQ SCH (18:14)
[2018-01-13] MEDS: amLODIPine 10 MG TAB PO SCH (06:57)
[2018-01-13] MEDS: FUROSEMIDE 20 MG TAB PO SCH (06:57)
[2018-01-13] MEDS: PANTOPRAZOLE 40 MG TABLET PO SCH (06:58)
[2018-01-13] MEDS: CALCIUM CARBONATE 500 MG CHEWABLE PO SCH ×2 (06:58→21:57)
[2018-01-13] MEDS: CALCIUM ACETATE 667 MG CAP PO SCH ×3 (06:58→17:38)
[2018-01-13] MEDS: METOPROLOL TARTRATE 50 MG TAB PO SCH ×2 (06:58→21:57)
[2018-01-13] MEDS: TAMSULOSIN 0.4 MG CAP.ER.24H PO SCH (06:58)
[2018-01-13] MEDS: MUPIROCIN 2% OINT 22 GM TUBE TOPICAL SCH ×3 (06:59→21:57)
[2018-01-13] MEDS: BRIMONIDINE TARTRATE 0.2% DROPS 5 ML BTL RIGHT EYE SCH (06:59)
[2018-01-13 07:03] LABS: Anisocytosis Slight; Basophils % (A) 0 %; Eosinophils # (A) 0.9 k/uL (0-0.7); Eosinophils % (A) 10 %; HCT 24.8 % (39.0-53.0); HGB 7.4 gm/dL (13.0-17.5); Hypochromasia Marked; Lymphocytes # (A) 0.8 k/uL (1.0-4.8); Lymphocytes % (A) 10 %; MCH 26.8 pg (25.0-35.0); MCHC 29.7 g/dL (31.0-37.0); MCV 90.1 fL (80.0-100.0); Mean Platelet Volume 10.4; Monocytes # (A) 0.8 k/uL (0-1.0); Monocytes % (A) 9 %; Neutrophils # (A) 5.6 k/uL (1.3-7.7); Neutrophils % (A) 69 %; Platelet Count 124 k/uL (150-450); RBC 2.75 m/uL (4.30-5.90); RDW 16.4 % (11.5-15.5); WBC 8.2 k/uL (3.8-10.6)
[2018-01-13 07:23] LABS: Albumin 2.5 g/dL (3.5-5.0); Calcium 7.2 mg/dL (8.4-10.2); Potassium 3.7 mmol/L (3.5-5.1); Total Bilirubin 0.2 mg/dL (0.2-1.3); Total Protein 4.3 g/dL (6.3-8.2)
[2018-01-13] MEDS: BUDESONIDE 0.5 MG/2 ML NEBU INHALATION SCH ×2 (08:06→20:03)
[2018-01-13] MEDS: IPRATROPIUM-ALBUTEROL 3 ML NEB INHALATION SCH ×4 (08:08→20:03)
--- NOTE | 2018-01-13 11:15 | P.PN ---
Subjective Patient is seen in follow-up for acute kidney injury. He is currently hemodialysis dependent on TTS schedule. He is noted to have 5 g of proteinuria with a positive ALEKS and is scheduled for a kidney biopsy on Sunday. Denies any chest pain or shortness of breath. Oral intake is good. No active complaints at this time. Vital signs are stable. General: The patient appeared well nourished and normally developed. HEENT: Head exam is unremarkable. Neck is without jugular venous distension. LUNGS: Lungs are clear to auscultation and percussion. Breath sounds decreased. HEART: Rate and Rhythm are regular. First and second heart sounds normal. No murmurs, rubs or gallops. ABDOMEN: Abdominal exam reveals normal bowel sounds. Non-tender and non- distended. No evidence of peritonitis. EXTREMITITES: No clubbing, cyanosis, or edema. Objective - Vital Signs Vital signs: Vital Signs Temp 97.7 F 01/13/18 05:45 Pulse 76 01/13/18 08:26 Resp 16 01/13/18 05:45 BP 128/60 01/13/18 05:45 Pulse Ox 93 L 01/13/18 08:08 Intake & Output 01/12/18 01/13/18 01/13/18 18:59 06:59 18:59 Intake Total 100 Output Total 1500 250 Balance -1400 -250 Weight 91.2 kg Intake: Intake, IV Titration 100 Amount Sodium Ferric Gluconat- 100 Sucrose 125 mg In Sodium Chloride 0.9% 100 ml @ 100 mls/hr IVPB ONCE ONE Rx#:[id number] Output: Urine 250 Other 1500 Other: Voiding Method Toilet Toilet Toilet # Voids 1 - Labs CBC & Chem 7: 01/13/18 06:45 01/13/18 06:45 Labs: Abnormal Lab Results - Last 24 Hours (Table) 01/13/18 01/13/18 Range/Units 06:45 06:45 RBC 2.75 L (4.30-5.90) m/uL Hgb 7.4 L (13.0-17.5) gm/dL Hct 24.8 L (39.0-53.0) % MCHC 29.7 L (31.0-37.0) g/dL RDW 16.4 H (11.5-15.5) % Plt Count 124 L (150-450) k/uL Lymphocytes # 0.8 L (1.0-4.8) k/uL Eosinophils # 0.9 H (0-0.7) k/uL BUN 31 H (9-20) mg/dL Creatinine 3.65 H (0.66-1.25) mg/dL Calcium 7.2 L (8.4-10.2) mg/dL AST 15 L (17-59) U/L Total Protein 4.3 L (6.3-8.2) g/dL Albumin 2.5 L (3.5-5.0) g/dL Assessment and Plan Plan: Assessment: 1. Nonoliguric acute kidney injury likely related to underlying glomerulonephritis. Patient does have nephrotic range proteinuria along with positive ALEKS and is scheduled for a kidney biopsy on Sunday. Currently hemodialysis dependent. 2. Anemia of chronic kidney disease maintained on Aranesp. Mild iron deficiency noted. 3. Hyperphosphatemia secondary to acute kidney injury. Maintained on PhosLo. 4. Benign hypertension. Controlled. 5. Volume overload. Improved with dialysis. 6. Vitamin D deficiency maintained on supplementation. Plan: Hemodialysis on Sunday. Maintain Lasix 60 mg once daily. Ferrlecit 125 mg IV once today. This will be his second dose. IV DDAVP prior to kidney biopsy tomorrow to help prevent uremic bleed. If his biopsy scheduled for later in the day, then we'll also try to do dialysis prior to his biopsy.
[2018-01-13] MEDS ORDERED: SODIUM FERRIC GLUCONAT-SUCROSE 125 MG in SODIUM CHLORIDE 0.9% 100 ML IVPB ONE (11:30)
[2018-01-13] MEDS ORDERED: DESMOPRESSIN ACETATE 4 MCG/ML VIAL (MDV) IVPB PRN (13:19)
--- NOTE | 2018-01-13 15:52 | P.PN ---
Subjective Progress Note Date: 01/13/18 This is a 62-year-old male patient of mine with a past medical history of hypertension and hypertensive cardiovascular disease, hyperlipidemia, history of chronic kidney disease stage 2, chronic tobacco use and dependence, history of hematuria, patient was complaining of an episode of and nausea vomiting and diarrhea about 3 weeks prior to the presentation and he was trying to come and see me in the office and the patient was seen yesterday by mid care provider, and laboratory evaluation were done since the patient did not have any lab done in a while due to financial issues, patient did have laboratory evaluation the form of the CMP and his potassium came back elevated at 6.2 and his BUN was elevated as well as creatinine so he was directed to the ER at [facility] he was seen in the emergency department he was given calcium gluconate, D50 with insulin, also was given nebulized treatment, and patient also was started on Kayexalate 45 g orally 1, he was placed on sodium bicarb and it drip , because he was severely acidotic with a bicarb level of 12 his creatinine was 7.3 his potassium went up to 7.3 patient was admitted to intensive care unit, he was seen in consultation by nephrology as well as by pulmonary medicine, and the patient had a Giordano catheter in due to an element of the obstruction as well , patient is sitting up in bed is feeling okay he denies any chest pain or shortness breath he has no bowel pain, nausea, vomiting. 01/04: BUN 106 and creatinine 6.2. Hemoglobin is stable at 7.4. ALEKS screen is positive, double-stranded DNA antibody negative, anti-DNA antibiotic interpretation is 1 which was negative and total complement 76 within normal range. Platelet count remains same at 111. Patient has been changed to overflow by Dr. Hernandez and can be moved out of the ICU today. He has been hemodynamically stable. Pulse ox is currently 93% on 6 L. Blood pressure is high this morning at 165/91. He has had good urine output. Giordano removed this morning. 01/05: Patient was evaluated today, BUN 101, creatinine 5.70, hemoglobin stable at 7.3, potassium 4.1. Blood pressure improved today 133/67, pulse ox 95% on 3 L supplemental nasal oxygen via cannula. He continues to have good urine output. Per nephrology's notes, may need a kidney biopsy if renal function does not improve further. 01/06: Patient was evaluated today, he denies any shortness of breath, chest pain , or dizziness. Vital signs are stable. Calcium noted to be 5.9, calcium carbonate 500 mg twice a day ordered, nephrology consult appreciated. Plans for kidney biopsy tomorrow, Lovenox and aspirin held. Kidney function slightly worsened from yesterday creatinine 6.02, BUN 100, free [place] chain 4.68, free lambda light chain 4.69, most likely elevated due to inflammation. Patient noted to have slightly worsened bilateral lower extremity pitting edema , 1 dose of IV Lasix 40 mg ordered. 01/07: Patient was evaluated today, he is more short of breath today, he was noted to be slightly hypoxic at 90% on 2 L, O2 increased to 3 L he is now 94%. On exam he was noted to have expiratory wheezing, DuoNeb's, IV Solu-medrol and chest x-ray ordered, will also obtain a BNP. IV Lasix 40 mg twice a day 2 doses ordered. Nephrology plans on a kidney biopsy next 1-2 days. Kidney function slightly worse from yesterday creatinine 6.12, BUN 98, if kidney function continues to decline, he may need dialysis. 01/08: Patient is going for hemodialysis catheter placement. Patient is to start hemodialysis today. Regarding renal biopsy, this will be scheduled for Sunday as aspirin will be off for 7 days. 01/09: Patient had PermCath placed with Dr. Robledo yesterday and started dialysis. Patient is scheduled for repeat dialysis today and again for tomorrow morning. Patient denies any new complaints and he is anxious to be discharged home. Patient is known to have increased IgE and to have outpatient evaluation for hypersensitivity pneumonitis and asthma. Hepatitis B surface antibody is reactive with quantitative 373.9... 01/10: Repeat BUN 66 and creatinine 3.98. Patient is undergoing hemodialysis now. Patient is planned to start on Sunday as an outpatient. Because patient was unable to have kidney biopsy done until the end of the month, discharge was held and patient will undergo kidney biopsy on Sunday while hospitalized. Patient is agreeable. 01/11: Repeat hemoglobin 7.9, BUN 44 and creatinine 3.56. Patient is scheduled for repeat hemodialysis in the morning and possibly after kidney biopsy on Sunday. He denies any new complaints. Patient will be staying until he can have kidney biopsy on Sunday. 01/12. Repeat hemoglobin pending. Creatinine pending. Status post one dose of ferric gluconate. Patient feels better denies any abdominal pain nausea, vomiting, abdominal pain. Kidney biopsy scheduled for Saturday 01/13 Hb today7.4 s/p ferric gluconate day2. Asymtpomatic. Objective - Vital Signs Vital signs: Vital Signs Temp 97.7 F 01/13/18 05:45 Pulse 72 01/13/18 11:33 Resp 16 01/13/18 05:45 BP 128/60 01/13/18 05:45 Pulse Ox 93 L 01/13/18 08:08 Intake & Output 01/12/18 01/13/18 01/13/18 18:59 06:59 18:59 Intake Total 100 125 Output Total 1500 250 Balance -1400 -250 125 Weight 91.2 kg Intake: Intake, IV Titration 100 125 Amount Sodium Ferric Gluconat- 100 Sucrose 125 mg In Sodium Chloride 0.9% 100 ml @ 100 mls/hr IVPB ONCE ONE Rx#:[id number] Sodium Ferric Gluconat- 125 Sucrose 125 mg In Sodium Chloride 0.9% 100 ml @ 100 mls/hr IVPB ONCE ONE Rx#:[id number] Output: Urine 250 Other 1500 Other: Voiding Method Toilet Toilet Toilet # Voids 1 - Exam - Constitutional General appearance: Present: average body habitus, no acute distress - EENT Eyes: Present: EOMI, PERRLA ENT: Present: normal oropharynx Ears: bilateral: normal - Neck Neck: Present: normal ROM. Absent: lymphadenopathy Carotids: bilateral: upstroke normal Thyroid: bilateral: normal size - Respiratory Respiratory: bilateral: CTA, negative: diminished, dullness, prolonged expiration - Cardiovascular Rhythm: regular Heart sounds: normal: S1, S2 Abnormal Heart Sounds: Absent: systolic murmur, diastolic murmur, rub - Peripheral edema foot Peripheral Edema: bilateral: None - Gastrointestinal General gastrointestinal: Present: normal bowel sounds, soft. Absent: distended , tenderness - Labs CBC & Chem 7: 01/13/18 06:45 01/13/18 06:45 Labs: Abnormal Lab Results - Last 24 Hours (Table) 05/13/18 05/13/18 Range/Units 06:45 06:45 RBC 2.75 L (4.30-5.90) m/uL Hgb 7.4 L (13.0-17.5) gm/dL Hct 24.8 L (39.0-53.0) % MCHC 29.7 L (31.0-37.0) g/dL RDW 16.4 H (11.5-15.5) % Plt Count 124 L (150-450) k/uL Lymphocytes # 0.8 L (1.0-4.8) k/uL Eosinophils # 0.9 H (0-0.7) k/uL BUN 31 H (9-20) mg/dL Creatinine 3.65 H (0.66-1.25) mg/dL Calcium 7.2 L (8.4-10.2) mg/dL AST 15 L (17-59) U/L Total Protein 4.3 L (6.3-8.2) g/dL Albumin 2.5 L (3.5-5.0) g/dL Assessment and Plan Plan: 1. Acute kidney injury and top of chronic kidney disease stage II secondary to acute tubular necrosis. Patient was started on IV bicarbonate drip, patient did receive Kayexalate 45 g orally 1, we'll repeat his potassium level again patient does have hematuria and proteinuria, and he appears to be anemic at 7.4 , patient would need to be monitored very closely he was started already on PhosLo for hyperphosphatemia he was given calcium gluconate dextrose and insulin. Nephrology is following. Giordano removed. Renal biopsy on Sunday. Patient is off aspirin. PermCath placed by Dr. Robledo. Patient started dialysis. Plan is for renal biopsy on Sunday as an inpatient. 2. Hyperkalemia secondary to acute kidney injury. Patient did receive Kayexalate 45 g orally 1, calcium gluconate 2 g IV, D50 with insulin, albuterol nebulized treatment. 3. Hypocalcemia due to acute kidney injury. Status post calcium gluconate. 4. Hyperphosphatemia. Continue the patient on PhosLo as ordered by nephrology. 5. Hypertension and hypertensive cardiovascular disease. Discontinue losartan and Lasix, continue metoprolol 50 grams orally twice every day as well as amlodipine 10 mg orally once every day. 6. Hyperlipidemia. Stable at this time. 7. Chronic tobacco use and dependence. Patient quit smoking about 2 weeks ago. 8. Anemia likely related to chronic kidney disease rule out other etiology. Transfuse for hemoglobin less than 7. His current hemoglobin pending. Ferric gluconate X2 9. Thrombocytopenia. Repeat CBC tomorrow morning. 10. DVT prophylaxis. Lovenox 30 mg subcu convinced every 24 hours. 11. GI prophylaxis. Protonix 40 mg orally once every day. 12. Patient is a full code. Discharge plan: Return home and Sunday after renal biopsy
[2018-01-13] MEDS: DEXTROSE 5% IN WATER 1,000 ML with SODIUM BICARB (1 MEQ/ML) 150 ML IV SCH (19:42)
[2018-01-14] MEDS: IPRATROPIUM-ALBUTEROL 3 ML NEB INHALATION SCH ×3 (07:17→15:34)
[2018-01-14] MEDS: BUDESONIDE 0.5 MG/2 ML NEBU INHALATION SCH (07:17)
[2018-01-14] MEDS: PANTOPRAZOLE 40 MG TABLET PO SCH (07:35)
[2018-01-14] MEDS: CALCIUM ACETATE 667 MG CAP PO SCH ×3 (07:35→17:23)
[2018-01-14] MEDS ORDERED: DESMOPRESSIN IVPB NR (08:00)
[2018-01-14] MEDS ORDERED: SODIUM CHLORIDE 0.9% IVPB NR (08:00)
[2018-01-14 08:07] LABS: Anisocytosis Slight; Basophils % (A) 0 %; Eosinophils # (A) 0.9 k/uL (0-0.7); Eosinophils % (A) 8 %; HCT 24.2 % (39.0-53.0); HGB 7.5 gm/dL (13.0-17.5); Hypochromasia Moderate; Lymphocytes # (A) 0.8 k/uL (1.0-4.8); Lymphocytes % (A) 8 %; MCH 27.6 pg (25.0-35.0); MCHC 30.8 g/dL (31.0-37.0); MCV 89.4 fL (80.0-100.0); Mean Platelet Volume 8.7; Monocytes # (A) 0.8 k/uL (0-1.0); Monocytes % (A) 8 %; Neutrophils # (A) 7.6 k/uL (1.3-7.7); Neutrophils % (A) 74 %; Platelet Count 149 k/uL (150-450); RBC 2.71 m/uL (4.30-5.90); RDW 16.2 % (11.5-15.5); WBC 10.3 k/uL (3.8-10.6)
[2018-01-14 08:12] LABS: INR 1.1 (<1.2); Prothrombin Time 10.7 sec (9.0-12.0)
[2018-01-14 08:26] LABS: Albumin 2.6 g/dL (3.5-5.0); Calcium 7.1 mg/dL (8.4-10.2); Potassium 3.9 mmol/L (3.5-5.1); Total Bilirubin 0.2 mg/dL (0.2-1.3); Total Protein 4.4 g/dL (6.3-8.2)
[2018-01-14] MEDS: amLODIPine 10 MG TAB PO SCH (09:50)
[2018-01-14] MEDS: FUROSEMIDE 20 MG TAB PO SCH (09:51)
[2018-01-14] MEDS: METOPROLOL TARTRATE 50 MG TAB PO SCH (09:51)
[2018-01-14] MEDS: BRIMONIDINE TARTRATE 0.2% DROPS 5 ML BTL RIGHT EYE SCH (09:52)
[2018-01-14] MEDS: MUPIROCIN 2% OINT 22 GM TUBE TOPICAL SCH ×2 (09:52→16:08)
[2018-01-14] MEDS: CALCIUM CARBONATE 500 MG CHEWABLE PO SCH (09:53)
[2018-01-14] MEDS: TAMSULOSIN 0.4 MG CAP.ER.24H PO SCH (09:53)
[2018-01-14] MEDS ORDERED: MORPHINE SULFATE 4 MG/ML SYRINGE IVP STA (11:38)
[2018-01-14] MEDS ORDERED: FUROSEMIDE 10 MG/ML 10 ML VIAL IV STA (12:03)
--- NOTE | 2018-01-14 12:03 | CT ---
EXAMINATION TYPE: CT biopsy renal RT DATE OF EXAM: 01/14/2018 COMPARISON: NONE HISTORY: Renal failure CT DLP: 2215 mGycm The procedure was explained to the patient. The risks, complications, benefits, and alternatives wer e discussed and any questions were answered. Informed consent was obtained. Patient was placed pron e on the CT table and prepped and draped in the usual sterile fashion. Utilizing CT guidance, an 18 gauge core biopsy needle access into the right renal cortex was achieved and three 18 gauge core samples were obtained. The patient was stable throughout the procedure and remained stable upon discharge. IMPRESSION: Successful 18 gauge core biopsy of the kidney function.
[2018-01-14] MEDS ORDERED: diphenhydrAMINE ELIXIR 25 MG/10 ML CUP PO SCH (12:15)
[2018-01-14 13:41] VITALS: RESP 22
[2018-01-14 14:08] VITALS: TEMP 97.1
--- NOTE | 2018-01-14 15:00 | P.DS ---
Providers Date of admission: 01/02/18 19:11 Expected date of discharge: 01/14/18 Attending physician: Estrellita Bains Consults: 01/02/18 19:18 Consult Physician Routine Consulting Provider: Esther Warner Consult Reason/Comments: Acute Renal Failure Do you want consulting provider notified?: Yes 01/03/18 07:31 Consult Physician Stat Consulting Provider: Mariam Yip Consult Reason/Comments: ICU management Do you want consulting provider notified?: Yes 01/07/18 13:17 Consult Physician Urgent Consulting Provider: David Robledo Consult Reason/Comments: Insertion of dialysis catheter Do you want consulting provider notified?: Yes Primary care physician: Estrellita Bains [facility] Course: This is a 62-year-old male patient of mine with a past medical history of hypertension and hypertensive cardiovascular disease, hyperlipidemia, history of chronic kidney disease stage 2, chronic tobacco use and dependence, history of hematuria, patient was complaining of an episode of and nausea vomiting and diarrhea about 3 weeks prior to the presentation and he was trying to come and see me in the office and the patient was seen yesterday by mid care provider, and laboratory evaluation were done since the patient did not have any lab done in a while due to financial issues, patient did have laboratory evaluation the form of the CMP and his potassium came back elevated at 6.2 and his BUN was elevated as well as creatinine so he was directed to the ER at [facility] he was seen in the emergency department he was given calcium gluconate, D50 with insulin, also was given nebulized treatment, and patient also was started on Kayexalate 45 g orally 1, he was placed on sodium bicarb and it drip , because he was severely acidotic with a bicarb level of 12 his creatinine was 7.3 his potassium went up to 7.3 patient was admitted to intensive care unit, he was seen in consultation by nephrology as well as by pulmonary medicine, and the patient had a Giordano catheter in due to an element of the obstruction as well , patient is sitting up in bed is feeling okay he denies any chest pain or shortness breath he has no bowel pain, nausea, vomiting. 5/4: BUN 106 and creatinine 6.2. Hemoglobin is stable at 7.4. ALEKS screen is positive, double-stranded DNA antibody negative, anti-DNA antibiotic interpretation is 1 which was negative and total complement 76 within normal range. Platelet count remains same at 111. Patient has been changed to overflow by Dr. Hernandez and can be moved out of the ICU today. He has been hemodynamically stable. Pulse ox is currently 93% on 6 L. Blood pressure is high this morning at 165/91. He has had good urine output. Giordano removed this morning. 01/05: Patient was evaluated today, BUN 101, creatinine 5.70, hemoglobin stable at 7.3, potassium 4.1. Blood pressure improved today 133/67, pulse ox 95% on 3 L supplemental nasal oxygen via cannula. He continues to have good urine output. Per nephrology's notes, may need a kidney biopsy if renal function does not improve further. 01/06: Patient was evaluated today, he denies any shortness of breath, chest pain , or dizziness. Vital signs are stable. Calcium noted to be 5.9, calcium carbonate 500 mg twice a day ordered, nephrology consult appreciated. Plans for kidney biopsy tomorrow, Lovenox and aspirin held. Kidney function slightly worsened from yesterday creatinine 6.02, BUN 100, free [place] chain 4.68, free lambda light chain 4.69, most likely elevated due to inflammation. Patient noted to have slightly worsened bilateral lower extremity pitting edema , 1 dose of IV Lasix 40 mg ordered. 01/07: Patient was evaluated today, he is more short of breath today, he was noted to be slightly hypoxic at 90% on 2 L, O2 increased to 3 L he is now 94%. On exam he was noted to have expiratory wheezing, DuoNeb's, IV Solu-medrol and chest x-ray ordered, will also obtain a BNP. IV Lasix 40 mg twice a day 2 doses ordered. Nephrology plans on a kidney biopsy next 1-2 days. Kidney function slightly worse from yesterday creatinine 6.12, BUN 98, if kidney function continues to decline, he may need dialysis. 01/08: Patient is going for hemodialysis catheter placement. Patient is to start hemodialysis today. Regarding renal biopsy, this will be scheduled for Sunday as aspirin will be off for 7 days. 01/09: Patient had PermCath placed with Dr. Robledo yesterday and started dialysis. Patient is scheduled for repeat dialysis today and again for tomorrow morning. Patient denies any new complaints and he is anxious to be discharged home. Patient is known to have increased IgE and to have outpatient evaluation for hypersensitivity pneumonitis and asthma. Hepatitis B surface antibody is reactive with quantitative 373.9... 01/10: Repeat BUN 66 and creatinine 3.98. Patient is undergoing hemodialysis now. Patient is planned to start on Sunday as an outpatient. Because patient was unable to have kidney biopsy done until the end of the month, discharge was held and patient will undergo kidney biopsy on Sunday while hospitalized. Patient is agreeable. 01/11: Repeat hemoglobin 7.9, BUN 44 and creatinine 3.56. Patient is scheduled for repeat hemodialysis in the morning and possibly after kidney biopsy on Sunday. He denies any new complaints. Patient will be staying until he can have kidney biopsy on Sunday. 01/12. Repeat hemoglobin pending. Creatinine pending. Status post one dose of ferric gluconate. Patient feels better denies any abdominal pain nausea, vomiting, abdominal pain. Kidney biopsy scheduled for Saturday 01/13 Hb today7.4 s/p ferric gluconate day2. Asymtpomatic. 01/14: Renal biopsy has been obtained. Labs for today show a hemoglobin of 7.5, BUN 40 and creatinine 4.48. Patient is scheduled for hemodialysis starting on Sunday at the outpatient center. Nephrology has ordered a dose of Lasix 60 mg IV prior to discharge. Patient is noted to have edema to his upper extremities. Patient will be discharged home today in stable condition. Discharge Diagnoses: 1. Acute kidney injury and top of chronic kidney disease stage II secondary to acute tubular necrosis. 2. Hyperkalemia secondary to acute kidney injury. 3. Hypocalcemia due to acute kidney injury. 4. Hyperphosphatemia. 5. Hypertension and hypertensive cardiovascular disease. 6. Hyperlipidemia. 7. Chronic tobacco use and dependence. Patient quit smoking about 2 weeks ago. 8. Anemia likely related to chronic kidney disease rule out other etiology. 9. Thrombocytopenia. Discharge plan: Return home Impression and plan of care have been directed as dictated by the signing physician. Anita Amaya nurse practitioner acting as scribe for signing physician. Patient Condition at Discharge: Good Plan - Discharge Summary Discharge Rx Participant: Yes New Discharge Prescriptions: New Albuterol Sulfate [Proventil Hfa] 2 puff INHALATION Q6HR PRN #1 inhaler PRN Reason: Wheezing Brimonidine Tartrate [Alphagan P 0.2% Ophth Soln] 1 drops RIGHT EYE DAILY ml Calcium Acetate [PhosLo] 667 mg PO TID-W/MEALS #90 cap Darbepoetin Gerry [Aranesp] 40 mcg SQ Q7D syringe Ergocalciferol [Vitamin D2 (DRISDOL)] 50,000 unit PO Q7D #4 cap Furosemide [Lasix] 60 mg PO BID #180 tab Tamsulosin [Flomax] 0.4 mg PO PC-BRKFST #30 cap.er.24h Continue amLODIPine BESYLATE [Norvasc] 10 mg PO DAILY Metoprolol Tartrate [Lopressor] 50 mg PO BID Ranitidine HCl [Zantac] 75 mg PO DAILY PRN PRN Reason: Heartburn Discontinued Furosemide [Lasix] 40 mg PO DAILY Aspirin EC [Ecotrin Low Dose] 81 mg PO DAILY Losartan Potassium 100 mg PO DAILY Discharge Medication List Metoprolol Tartrate [Lopressor] 50 mg PO BID 01/02/18 [History] Ranitidine HCl [Zantac] 75 mg PO DAILY PRN 01/02/18 [History] amLODIPine BESYLATE [Norvasc] 10 mg PO DAILY 01/02/18 [History] Albuterol Sulfate [Proventil Hfa] 2 puff INHALATION Q6HR PRN #1 inhaler [Rx] Brimonidine Tartrate [Alphagan P 0.2% Ophth Soln] 1 drops RIGHT EYE DAILY ml [Rx] Calcium Acetate [PhosLo] 667 mg PO TID-W/MEALS #90 cap 01/10/18 [Rx] Darbepoetin Gerry [Aranesp] 40 mcg SQ Q7D syringe 01/10/18 [Rx] Ergocalciferol [Vitamin D2 (DRISDOL)] 50,000 unit PO Q7D #4 cap 01/10/18 [Rx] Furosemide [Lasix] 60 mg PO BID #180 tab 01/10/18 [Rx] Tamsulosin [Flomax] 0.4 mg PO PC-BRKFST #30 cap.er.24h 01/10/18 [Rx] Follow up Appointment(s)/Referral(s): Esther Warner MD [STAFF PHYSICIAN] - 1 Week (Dr. Warner will see patient at dialysis center) Estrellita Bains MD [Primary Care Provider] - 01/21/18 11:15 am Joao Hernandez DO [Doctor of Osteopathic Medicine] - 02/04/18 9:30 am Patient Instructions/Handouts: Furosemide (By mouth), Albuterol (By breathing) , Ergocalciferol (By mouth), Tamsulosin (By mouth), Calcium Acetate (By mouth), Acute Kidney Injury (DC), Hyperkalemia (DC), Hypocalcemia (DC) Activity/Diet/Wound Care/Special Instructions: Hemo Dialysis on Sunday01/16/18 at 3pm - show up 15 min early please Discharge Disposition: HOME SELF-CARE
[2018-01-14 16:11] VITALS: BP 111/58; PULSE 81
--- NOTE | 2018-01-14 21:39 | PN ---
PROGRESS NOTE Patient is seen for followup for acute kidney injury. He had his kidney biopsy done today. Patient was dialyzed as well. He is scheduled for outpatient dialysis on a Sunday, Sunday, Sunday schedule. Overall he feels well. He is complaining of swelling in his upper extremities. On examination, blood pressure was 111/58, heart rate 72 per minute. Patient is afebrile. EXAMINATION OF THE HEART: S1, S2. EXAMINATION OF LUNGS: Bilateral breath sounds are heard. ABDOMEN: Soft, non-tender. Examination of lower extremities shows trace edema bilaterally. [employer] exam is grossly intact. Labs show sodium 136, potassium 3.9, hemoglobin 7.5 g/dL. ASSESSMENT: 1. Acute kidney injury. Rule out underlying acute GN, status post kidney biopsy today. Currently patient remains hemodialysis-dependent. 2. Anemia of chronic disease, maintained on Aranesp. No active bleeding noted. 3. Hypertension, controlled. 4. Volume overload. Will give one dose of IV Lasix. Patient can continue with oral diuretics as outpatient. 5. Hyperphosphatemia, maintained on phosphate binders. PLAN: Will follow up results of the kidney biopsy. Patient is scheduled for hemodialysis as outpatient on a Sunday, Sunday, Sunday schedule. MMODL / IJN: [id number] /
--- NOTE | 2018-01-24 09:26 | PCN ---
PROCEDURE NOTE PREOPERATIVE DIAGNOSIS: Acute chronic failure. PROCEDURE: Ultrasound-guided dialysis catheter placed right jugular approach. PROCEDURE: This patient was brought to the farm labor contractor. The neck and chest were prepped and draped in the usual sterile manner and 1% lidocaine plain for the neck and chest area. Micropuncture introduced right jugular vein. Micropuncture guide was passed. Checked on the C-arm. A 4-Tanzanian dilator advanced on the top of the guidewire. After that, we passed a guidewire which was parked in the inferior vena cava. Tunnel was created. Through the tunnel, we brought the dialysis catheter. Then the dilator was advanced on the top of the guidewire. Then we placed a sheath on top of the guidewire. Through the sheath we introduced the dialysis catheter. Tip of the catheter was in superior vena cava and atrial junction. Flushed with heparin and saline, hep-locked. Secured both with nylon and Vicryl. The patient tolerated the procedure well. MMODL / IJN: [id number] /
== END 2018-01-14 18:40 | disposition home or self-care (01) | DRG 674 ==
LOC: EC 17:45 → 6SEL 19:11 → 6ICU 01-03 07:36 → 5MS5E 01-05 15:09
PROVIDERS: ADMIT Internal Medicine; ATTEND Internal Medicine
PROC: 5A1D70Z Performance of Urinary Filtration, Intermittent, Less than 6 Hours Per Day (ICD-10-PCS; principal; 2018-01-07)
PROC: 05HM33Z Insertion of Infusion Device into Right Internal Jugular Vein, Percutaneous Approach (ICD-10-PCS; 2018-01-08)
PROC: 0JH63XZ Insertion of Tunneled Vascular Access Device into Chest Subcutaneous Tissue and Fascia, Percutaneous Approach (ICD-10-PCS; 2018-01-08 12:30)
PROC: 0TB03ZX Excision of Right Kidney, Percutaneous Approach, Diagnostic (ICD-10-PCS; 2018-01-14)
DX: N17.0 Acute kidney failure with tubular necrosis (principal); E87.2 Acidosis; E11.22 Type 2 diabetes mellitus with diabetic chronic kidney disease; N18.2 Chronic kidney disease, stage 2 (mild); E87.5 Hyperkalemia; E83.51 Hypocalcemia; I13.10 Hypertensive heart and chronic kidney disease without heart failure, with stage 1 through stage 4 chronic kidney disease, or unspecified chronic kidney disease; E78.5 Hyperlipidemia, unspecified; D63.1 Anemia in chronic kidney disease; D69.6 Thrombocytopenia, unspecified; J44.9 Chronic obstructive pulmonary disease, unspecified; K21.9 Gastro-esophageal reflux disease without esophagitis; I25.10 Atherosclerotic heart disease of native coronary artery without angina pectoris; E66.9 Obesity, unspecified; Z68.33 Body mass index [BMI] 33.0-33.9, adult; R01.1 Cardiac murmur, unspecified; F17.210 Nicotine dependence, cigarettes, uncomplicated; H40.9 Unspecified glaucoma; E87.6 Hypokalemia; M79.89 Other specified soft tissue disorders; N40.1 Benign prostatic hyperplasia with lower urinary tract symptoms; R33.8 Other retention of urine; R09.02 Hypoxemia; E87.70 Fluid overload, unspecified; E61.1 Iron deficiency; E55.9 Vitamin D deficiency, unspecified; N05.9 Unspecified nephritic syndrome with unspecified morphologic changes; R60.0 Localized edema; Z99.2 Dependence on renal dialysis; Z79.82 Long term (current) use of aspirin; Z82.5 Family history of asthma and other chronic lower respiratory diseases; Z86.19 Personal history of other infectious and parasitic diseases; Z87.11 Personal history of peptic ulcer disease; Z79.899 Other long term (current) drug therapy; Z82.49 Family history of ischemic heart disease and other diseases of the circulatory system
CPT/HCPCS: 36415; 36558; 71045; 71046; 76770; 76937; 77001; 77012; 80048; 80053; 81001; 82103; 82104; 82306; 82550; 82570; 82728; 82785; 82803; 83540; 83550; 83735; 83880; 83883; 83930; 83935; 84100; 84156; 84165; 84300; 85025; 85027; 85610; 86038; 86039; 86160; 86162; 86225; 86255; 86706; 86850; 86900; 86901; 87205; 87340; 90935; 93005; 93306; 93970; 94640; 94760; 96361; 96365; 96366; 96368; 96375; 96376; 99285

== ENCOUNTER → 2018-01-02 | Outpatient (CLI) | payer OTHER ==
--- NOTE | 2018-01-02 10:33 | US ---
EXAMINATION TYPE: US venous doppler duplex LE RT DATE OF EXAM: 01/02/2018 10:17 AM COMPARISON: NONE CLINICAL HISTORY: 62-year-old with no Localized Swelling of Rt Leg w/ lump R22.41. Pt states right le g swelling, no known prior DVT, not on blood thinners SIDE PERFORMED: Right TECHNIQUE: The lower extremity deep venous system is examined utilizing real time linear array sonog luther with graded compression, doppler sonography and color-flow sonography. FINDINGS: VESSELS IMAGED: External Iliac Vein (EIV) Common Femoral Vein Deep Femoral Vein Greater Saphenous Vein * Femoral Vein Popliteal Vein Small Saphenous Vein * Proximal Calf Veins (* superficial vessels) Right Leg: Negative for DVT Results called to Rosa at 's office at time of exam IMPRESSION: No evidence for DVT within the right lower extremity imaged from the groin to the upper calf.
== END | disposition home or self-care (01) ==
LOC: RADUSWWP 09:41
PROVIDERS: ATTEND Internal Medicine
DX: R22.41 Localized swelling, mass and lump, right lower limb (principal)

== ENCOUNTER 2018-01-15 04:07 | Inpatient (IN) | payer OTHER ==
[2018-01-15] MEDS ORDERED: FUROSEMIDE 10 MG/ML 4 ML VIAL IV STA (04:13)
--- NOTE | 2018-01-15 04:15 | ED ---
SOB HPI - General Stated Complaint: DIFF Breathing Time Seen by Provider: 01/15/18 04:12 Source: patient Limitations: physical limitation (Severe dyspnea) - History of Present Illness Initial Comments: This patient is a 62-year-old man who presents by ambulance to be evaluated for severe dyspnea. History is limited as the patient is very dyspneic and is only able to get a few words out at time. Patient's started becoming short of breath about 90 minutes ago and it got progressively worse. He is having some chest pressure all across the chest. When EMS arrived, they found the patient to be very dyspneic. They placed the patient on CPAP and administered albuterol. They started an IV and transported patient here. MD Complaint: shortness of breath, chest pain Onset/Timin -: minutes(s) Severity: severe Consistency: constant Improves With: oxygen, upright position Worsens With: lying flat Known History Of: other (Kidney failure) Associated Symptoms: chest pain Treatments Prior to Arrival: oxygen, NIPPV - Related Data Home Medications Medication Instructions Recorded Confirmed Metoprolol Tartrate [Lopressor] 50 mg PO BID 01/02/18 01/15/18 amLODIPine BESYLATE [Norvasc] 10 mg PO DAILY 01/02/18 01/15/18 Cetirizine HCl [Zyrtec] 10 mg PO DAILY 01/15/18 01/15/18 Fluticasone Nasal [place] [Flonase 2 spr EA NOSTRIL DAILY 01/15/18 01/15/18 Nasal [place]] Furosemide [Lasix] 40 mg PO DAILY 01/15/18 01/15/18 Losartan Potassium 100 mg PO DAILY 01/15/18 01/15/18 Previous Rx's Medication Instructions Recorded Brimonidine Tartrate [Alphagan P 1 drops RIGHT EYE DAILY ml 01/10/18 0.2% Ophth Soln] Allergies Allergy/AdvReac Type Severity Reaction Status Date / Time No Known Allergies Allergy Verified 01/15/18 09:33 Review of Systems ROS Statement: Those systems with pertinent positive or pertinent negative responses have been documented in the HPI. ROS Other: All systems not noted in ROS Statement are negative. Limitations: ROS unobtainable due to patients medical condition (Severe dyspnea) Respiratory: Reports: dyspnea Cardiovascular: Reports: chest pain, orthopnea. Denies: syncope Gastrointestinal: Denies: abdominal pain, vomiting Musculoskeletal: Denies: back pain Neurological: Denies: headache Past Medical History Past Medical History: COPD, GERD/Reflux, GI Bleed, Hyperlipidemia, Hypertension , Osteoarthritis (OA), Prostate Disorder Additional Past Medical History / Comment(s): Chronic lower extremity edema, decreased urinary stream lately, 1992 somach ulcer with hematemesis. History of Any Multi-Drug Resistant Organisms: None Reported Past Surgical History: No Surgical Hx Reported Additional Past Surgical History / Comment(s): EGD Past Anesthesia/Blood Transfusion Reactions: No Reported Reaction Additional Past Anesthesia/Blood Transfusion Reaction / Comment(s): Pt received blood years ago with his stomach ulcer bleed-no reaction. Smoking Status: Former smoker (patient is about 2 pack every day his now quit smoking about 2 weeks ago he smoked since he was 26-year-old.) - Past Family History Father Family Medical History: Asthma Additional Family Medical History / Comment(s): Father at the age of 64yrs. Mother Family Medical History: Myocardial Infarction (MT) Additional Family Medical History / Comment(s): Mother had a MT sometime prior to age 60yrs. She is 86yrs old. Brother(s) Family Medical History: No Reported History (patient has 6 brothers no major problems) Sister(s) Family Medical History: No Reported History (patient has 2 sisters no major medical problems.) Son(s) Family Medical History: No Reported History (patient has 2 sons no major medical problems) Daughter(s) Family Medical History: No Reported History (patient has one daughter no major medical problems.) Course Vital Signs 01/15/18 01/15/18 01/15/18 04:08 04:17 04:38 Temperature 98.6 F Pulse Rate 105 H 83 Respiratory 37 H 34 H Rate Blood Pressure 147/79 106/59 O2 Sat by Pulse 80 L 97 100 Oximetry 01/15/18 01/15/18 01/15/18 04:50 05:59 06:29 Temperature 98.3 F Pulse Rate 91 70 69 Respiratory 31 H 22 17 Rate Blood Pressure 93/50 97/58 108/62 O2 Sat by Pulse 100 100 100 Oximetry - Reevaluation(s) Reevaluation #1: 01/15/18 05:[address] Warner, will arrange to add dialysis to current treatment consisting of nitrates, BiPAP, diuretics. Medical Decision Making - Lab Data Result diagrams: 01/17/18 12:09 01/17/18 16:30 Lab Results 01/15/18 01/15/18 01/15/18 Range/Units 04:24 04:28 04:28 WBC 11.9 H (3.8-10.6) k/uL RBC 2.81 L (4.30-5.90) m/uL Hgb 7.7 L (13.0-17.5) gm/dL Hct 25.6 L (39.0-53.0) % MCV 91.0 (80.0-100.0) fL MCH 27.6 (25.0-35.0) pg MCHC 30.3 L (31.0-37.0) g/dL RDW 16.4 H (11.5-15.5) % Plt Count 158 (150-450) k/uL Neutrophils % 85 % Lymphocytes % 5 % Monocytes % 5 % Eosinophils % 4 % Basophils % 0 % Neutrophils # 10.2 H (1.3-7.7) k/uL Lymphocytes # 0.6 L (1.0-4.8) k/uL Monocytes # 0.6 (0-1.0) k/uL Eosinophils # 0.4 (0-0.7) k/uL Basophils # 0.0 (0-0.2) k/uL Hypochromasia Marked Anisocytosis Slight PT (9.0-12.0) sec INR (<1.2) APTT (22.0-30.0) sec Sodium (137-145) mmol/L Potassium (3.5-5.1) mmol/L Chloride (98-107) mmol/L Carbon Dioxide (22-30) mmol/L Anion Gap mmol/L BUN (9-20) mg/dL Creatinine (0.66-1.25) mg/dL Est GFR (CKD-EPI)AfAm (>60 ml/min/1.73 sqM) Est GFR (CKD-EPI)NonAf (>60 ml/min/1.73 sqM) Glucose (74-99) mg/dL POC Glucose (mg/dL) 206 H (75-99) mg/dL POC Glu Fusing Machine Feeder ID Greg Horton Calcium (8.4-10.2) mg/dL Total Bilirubin (0.2-1.3) mg/dL AST (17-59) U/L ALT (21-72) U/L Alkaline Phosphatase (38-126) U/L Total Creatine Kinase 112 (55-170) U/L CK-MB (CK-2) 4.4 H* (0.0-2.4) ng/mL CK-MB (CK-2) Rel Index 3.9 Troponin I 0.631 H* (0.000-0.034) ng/mL NT-Pro-B Natriuret Pep pg/mL Total Protein (6.3-8.2) g/dL Albumin (3.5-5.0) g/dL 01/15/18 01/15/18 01/15/18 Range/Units 04:28 04:28 04:28 WBC (3.8-10.6) k/uL RBC (4.30-5.90) m/uL Hgb (13.0-17.5) gm/dL Hct (39.0-53.0) % MCV (80.0-100.0) fL MCH (25.0-35.0) pg MCHC (31.0-37.0) g/dL RDW (11.5-15.5) % Plt Count (150-450) k/uL Neutrophils % % Lymphocytes % % Monocytes % % Eosinophils % % Basophils % % Neutrophils # (1.3-7.7) k/uL Lymphocytes # (1.0-4.8) k/uL Monocytes # (0-1.0) k/uL Eosinophils # (0-0.7) k/uL Basophils # (0-0.2) k/uL Hypochromasia Anisocytosis PT 10.8 (9.0-12.0) sec INR 1.1 (<1.2) APTT 20.8 L (22.0-30.0) sec Sodium 139 (137-145) mmol/L Potassium 4.4 (3.5-5.1) mmol/L Chloride 99 (98-107) mmol/L Carbon Dioxide 25 (22-30) mmol/L Anion Gap 15 mmol/L BUN 34 H (9-20) mg/dL Creatinine 4.10 H (0.66-1.25) mg/dL Est GFR (CKD-EPI)AfAm 17 (>60 ml/min/1.73 sqM) Est GFR (CKD-EPI)NonAf 15 (>60 ml/min/1.73 sqM) Glucose 183 H (74-99) mg/dL POC Glucose (mg/dL) (75-99) mg/dL POC Glu Fusing Machine Feeder ID Calcium 7.4 L (8.4-10.2) mg/dL Total Bilirubin 0.5 (0.2-1.3) mg/dL AST 25 (17-59) U/L ALT 37 (21-72) U/L Alkaline Phosphatase 94 (38-126) U/L Total Creatine Kinase (55-170) U/L CK-MB (CK-2) (0.0-2.4) ng/mL CK-MB (CK-2) Rel Index Troponin I (0.000-0.034) ng/mL NT-Pro-B Natriuret Pep 78264 pg/mL Total Protein 4.9 L (6.3-8.2) g/dL Albumin 2.9 L (3.5-5.0) g/dL - EKG Data -: EKG Interpreted by Me EKG shows normal: sinus rhythm, intervals (Normal), QRS complexes (Normal) Rate: normal (Rate 99 bpm) Interpretation: nonspecific ST-T wave changes Critical Care Time Critical Care Time: Yes (35 minutes) Disposition Clinical Impression: Congestive heart failure, Acute renal failure, Pulmonary edema, Elevated troponin I level, Anemia Disposition: ADMITTED IP TO THIS [facility] Condition: Serious
[2018-01-15] MEDS ORDERED: NITROGLYCERIN OINT 1 INCH/GM PACKET TOPICAL STA (04:19)
[2018-01-15 04:27] LABS: Glucose,Whole Blood 206 mg/dL (75-99)
[2018-01-15 04:48] LABS: Anisocytosis Slight; Basophils % (A) 0 %; Eosinophils # (A) 0.4 k/uL (0-0.7); Eosinophils % (A) 4 %; HCT 25.6 % (39.0-53.0); HGB 7.7 gm/dL (13.0-17.5); Hypochromasia Marked; Lymphocytes # (A) 0.6 k/uL (1.0-4.8); Lymphocytes % (A) 5 %; MCH 27.6 pg (25.0-35.0); MCHC 30.3 g/dL (31.0-37.0); Mean Platelet Volume 8.3; Monocytes # (A) 0.6 k/uL (0-1.0); Monocytes % (A) 5 %; Neutrophils # (A) 10.2 k/uL (1.3-7.7); Neutrophils % (A) 85 %; Platelet Count 158 k/uL (150-450); RBC 2.81 m/uL (4.30-5.90); RDW 16.4 % (11.5-15.5); WBC 11.9 k/uL (3.8-10.6)
[2018-01-15 04:52] LABS: Albumin 2.9 g/dL (3.5-5.0); Calcium 7.4 mg/dL (8.4-10.2); Potassium 4.4 mmol/L (3.5-5.1); Total Bilirubin 0.5 mg/dL (0.2-1.3); Total Protein 4.9 g/dL (6.3-8.2)
[2018-01-15 04:59] LABS: INR 1.1 (<1.2); Prothrombin Time 10.8 sec (9.0-12.0)
[2018-01-15 05:02] LABS: Partial Thromboplastin Time 20.8 sec (22.0-30.0)
--- NOTE | 2018-01-15 05:31 | XR ---
EXAM: XR Chest, 1 View CLINICAL HISTORY: Dyspnea TECHNIQUE: Frontal view of the chest. COMPARISON: 01/08/2018. FINDINGS: Lungs: Bibasilar atelectasis and/or infiltrates, interval worsening since prior study. Mild pulmonary vascular congestion/pulmonary edema is suggested, interval worsening since prior study. Pleural space: Moderate left pleural effusion, interval increase in size since prior study, and probable small right pleural effusion, not seen on prior study. No pneumothorax. Heart: Unremarkable. No cardiomegaly. Mediastinum: Unremarkable. Bones/joints: Unremarkable. Tubes, lines and devices: Double lumen right-sided IJ central venous line is again seen with tip overlying the right atrium. IMPRESSION: 1. Bibasilar atelectasis and/or infiltrates, interval worsening since prior study. 2. Moderate left pleural effusion, interval increase in size since prior study, and probable small right pleural effusion, not seen on prior study. 3. Mild pulmonary vascular congestion/pulmonary edema is suggested, interval worsening since prior study.
[2018-01-15 05:32] LABS: Creatine Kinase MB 4.4 ng/mL (0.0-2.4); Troponin I 0.631 ng/mL (0.000-0.034)
[2018-01-15] MEDS ORDERED: FAMOTIDINE 20 MG TAB PO PRN (06:53)
[2018-01-15] MEDS ORDERED: FUROSEMIDE 10 MG/ML 10 ML VIAL IV SCH (08:00)
[2018-01-15] MEDS ORDERED: METOPROLOL TARTRATE 50 MG TAB PO SCH (09:00)
[2018-01-15] MEDS ORDERED: amLODIPine 10 MG TAB PO SCH (09:00)
[2018-01-15] MEDS: TAMSULOSIN 0.4 MG CAP.ER.24H PO SCH (09:52)
[2018-01-15] MEDS: BRIMONIDINE TARTRATE 0.2% DROPS 5 ML BTL RIGHT EYE SCH (09:52)
[2018-01-15] MEDS: CALCIUM ACETATE 667 MG CAP PO SCH ×3 (09:52→17:15)
[2018-01-15] MEDS: FUROSEMIDE 10 MG/ML 4 ML VIAL IV SCH ×3 (09:53→21:58)
--- NOTE | 2018-01-15 14:58 | P.HPIM ---
History of Present Illness H&P Date: 01/15/18 Chief Complaint: Difficulty breathing This is a 62-year-old male patient of Dr. Bains with a past medical history of hypertension and hypertensive cardiovascular disease, hyperlipidemia, chronic kidney disease stage 2, chronic tobacco use and dependence, history of hematuria. He had recent hospitalization and was diagnosed with acute kidney injury and treated for hyperphosphatemia, hyperkalemia and volume overload. Patient had PermCath placed by Dr. Robledo and was started on hemodialysis. On Sunday he underwent a renal biopsy and was discharged home. Patient developed sudden onset of severe shortness of breath shortly after he arrived at home. Patient presented back to [facility] emergency center by EMS. Patient was found by EMS to be quite dyspneic and placed him on CPAP and gave him albuterol nebulizer treatment. BUN was 34 and creatinine 4.10, hemoglobin 7.7, potassium 4.4. Blood sugar was 206. Patient does not have history of diabetes. Troponin 0.631. ProBNP was 20,600. Chest x-ray revealed bibasilar atelectasis and/or infiltrates, interval worsening since prior study. Moderate left pleural effusion, interval increase in size since prior study. Probable small right pleural effusion. Mild pulmonary vascular congestion/pulmonary edema is suggested. Interval worsening since prior study. Patient was given 1 dose of IV Lasix 40 mg in the ER and admitted to the selective care unit. Consult in place with nephrology and repeat troponins of been ordered. Patient has been on BiPAP and switched over to high flow O2 this morning. Patient states he has improvement of his breathing but with any movement he becomes much worse. He is undergoing hemodialysis at this time. His bilateral arm edema is improved from yesterday. He is currently on O2 at 6 L high flow nasal cannula. His repeat troponin came back at 2.8 and cardiology consult has been requested. Patient was hypotensive this morning and Norvasc, Lopressor losartan are on hold. Patient is continued on Lasix 40 mg IV every 8 hours. Review of Systems All systems: negative Constitutional: Denies chills, Denies fever Eyes: denies blurred vision, denies pain Ears, nose, mouth and throat: Denies headache, Denies sore throat Cardiovascular: Reports decreased exercise tolerance, Reports dyspnea on exertion, Reports edema, Reports leg edema, Reports shortness of breath, Denies chest pain, Denies lightheadedness, Denies syncope Respiratory: Reports dyspnea, Denies cough, Denies cough with sputum, Denies excessive sputum, Denies hemoptysis, Denies home oxygen, Denies wheezing Gastrointestinal: Denies abdominal pain, Denies diarrhea, Denies nausea, Denies vomiting Musculoskeletal: Denies myalgias Integumentary: Denies pruritus, Denies rash Neurological: Denies numbness, Denies weakness Psychiatric: Denies anxiety, Denies depression Endocrine: Denies fatigue, Denies weight change Past Medical History Past Medical History: COPD, GERD/Reflux, GI Bleed, Hyperlipidemia, Hypertension , Osteoarthritis (OA), Prostate Disorder, Renal Disease Additional Past Medical History / Comment(s): Chronic lower extremity edema, decreased urinary stream lately, 1992 somach ulcer with hematemesis, acute kidney injury on hemodialysis. History of Any Multi-Drug Resistant Organisms: None Reported Past Surgical History: No Surgical Hx Reported Additional Past Surgical History / Comment(s): EGD, PermCath, renal biopsy Past Anesthesia/Blood Transfusion Reactions: No Reported Reaction Additional Past Anesthesia/Blood Transfusion Reaction / Comment(s): Pt received blood years ago with his stomach ulcer bleed-no reaction. Past Psychological History: No Psychological Hx Reported Additional Psychological History / Comment(s): Pt resides with his spouse and 2 children. He is independent. He understands spoken [place] fairly well but written [place] is alittle difficult for him. He is fluent in Maltese. Smoking Status: Former smoker Past Alcohol Use History: Unable to Obtain Additional Past Alcohol Use History / Comment(s): Pt started smoking in 1981 and states he quit 2 weeks ago. Past Drug Use History: Unable to Obtain - Past Family History Father Family Medical History: Asthma Additional Family Medical History / Comment(s): Father at the age of 64yrs. Mother Family Medical History: Myocardial Infarction (NC) Additional Family Medical History / Comment(s): Mother had a NC sometime prior to age 60yrs. She is 86yrs old. Brother(s) Family Medical History: No Reported History Sister(s) Family Medical History: No Reported History Son(s) Family Medical History: No Reported History Daughter(s) Family Medical History: No Reported History Medications and Allergies Home Medications Medication Instructions Recorded Confirmed Type Metoprolol Tartrate [Lopressor] 50 mg PO BID 01/02/18 01/15/18 History amLODIPine BESYLATE [Norvasc] 10 mg PO DAILY 01/02/18 01/15/18 History Brimonidine Tartrate [Alphagan P 1 drops RIGHT EYE DAILY ml 01/10/18 01/15/18 Rx 0.2% Ophth Soln] Cetirizine HCl [Zyrtec] 10 mg PO DAILY 01/15/18 01/15/18 History Fluticasone Nasal [place] [Flonase 2 spr EA NOSTRIL DAILY 01/15/18 01/15/18 History Nasal [place]] Furosemide [Lasix] 40 mg PO DAILY 01/15/18 01/15/18 History Losartan Potassium 100 mg PO DAILY 01/15/18 01/15/18 History Allergies Allergy/AdvReac Type Severity Reaction Status Date / Time No Known Allergies Allergy Verified 01/15/18 09:33 Physical Exam Vitals: Vital Signs Temp Pulse Pulse Resp BP BP Pulse Ox 01/15/18 09:54 96 01/15/18 08:00 77 18 104/55 98 01/15/18 06:29 98.3 F 69 17 108/62 100 01/15/18 05:59 70 22 97/58 100 01/15/18 04:50 91 31 H 93/50 100 01/15/18 04:38 83 34 H 106/59 100 01/15/18 04:17 97 01/15/18 04:08 98.6 F 105 H 37 H 147/79 80 L Intake and Output 01/14/18 01/15/18 01/15/18 22:59 06:59 14:59 Other: Weight 93.485 kg General appearance: Present: average body habitus, no acute distress - EENT Eyes: Present: EOMI, PERRLA ENT: Present: normal oropharynx Ears: bilateral: normal - Neck Neck: Present: normal ROM. Absent: lymphadenopathy Carotids: bilateral: upstroke normal Thyroid: bilateral: normal size - Respiratory Respiratory: bilateral: Diminished, crackles, negative: dullness, prolonged expiration - Cardiovascular Rhythm: regular Heart sounds: normal: S1, S2 Abnormal Heart Sounds: Absent: systolic murmur, diastolic murmur, rub - Peripheral edema foot Peripheral Edema: bilateral: None - Gastrointestinal General gastrointestinal: Present: normal bowel sounds, soft. Absent: distended , tenderness - Integumentary Integumentary: Absent: palor, cyanotic - Neurologic Neurologic: Present: CNII-XII intact - Musculoskeletal Musculoskeletal: Present: gait normal, strength equal bilaterally - Psychiatric Psychiatric: Present: A&O x's 3, appropriate affect Results CBC & Chem 7: 01/15/18 04:28 01/16/18 05:53 Labs: Abnormal Lab Results - Last 24 Hours (Table) 01/15/18 01/15/18 01/15/18 Range/Units 04:24 04:28 04:28 WBC 11.9 H (3.8-10.6) k/uL RBC 2.81 L (4.30-5.90) m/uL Hgb 7.7 L (13.0-17.5) gm/dL Hct 25.6 L (39.0-53.0) % MCHC 30.3 L (31.0-37.0) g/dL RDW 16.4 H (11.5-15.5) % Neutrophils # 10.2 H (1.3-7.7) k/uL Lymphocytes # 0.6 L (1.0-4.8) k/uL APTT (22.0-30.0) sec BUN (9-20) mg/dL Creatinine (0.66-1.25) mg/dL Glucose (74-99) mg/dL POC Glucose (mg/dL) 206 H (75-99) mg/dL Calcium (8.4-10.2) mg/dL CK-MB (CK-2) 4.4 H* (0.0-2.4) ng/mL Troponin I 0.631 H* (0.000-0.034) ng/mL Total Protein (6.3-8.2) g/dL Albumin (3.5-5.0) g/dL 01/15/18 01/15/18 Range/Units 04:28 04:28 WBC (3.8-10.6) k/uL RBC (4.30-5.90) m/uL Hgb (13.0-17.5) gm/dL Hct (39.0-53.0) % MCHC (31.0-37.0) g/dL RDW (11.5-15.5) % Neutrophils # (1.3-7.7) k/uL Lymphocytes # (1.0-4.8) k/uL APTT 20.8 L (22.0-30.0) sec BUN 34 H (9-20) mg/dL Creatinine 4.10 H (0.66-1.25) mg/dL Glucose 183 H (74-99) mg/dL POC Glucose (mg/dL) (75-99) mg/dL Calcium 7.4 L (8.4-10.2) mg/dL CK-MB (CK-2) (0.0-2.4) ng/mL Troponin I (0.000-0.034) ng/mL Total Protein 4.9 L (6.3-8.2) g/dL Albumin 2.9 L (3.5-5.0) g/dL Thrombosis Risk Factor Assmnt - DVT/VTE Prophylaxis DVT/VTE Prophylaxis: Pharmacologic Prophylaxis ordered Assessment and Plan Plan: 1. Acute hypoxic respiratory and failure requiring BiPAP secondary to pleural effusion and pulmonary edema secondary to acute on chronic diastolic heart failure. Patient has been on BiPAP and transitioned to high flow O2 by nasal cannula. Maintain pulse ox of 90%. Continue Lasix 40 mg IV every 8 hours. Patient is undergoing hemodialysis. 2. Acute kidney injury and top of chronic kidney disease stage II secondary to acute tubular necrosis requiring hemodialysis, presenting with fluid overload. Lasix 40 mg IV every 8 hours. Consult with nephrology. Patient is scheduled for hemodialysis today. 3. Elevated troponin, possible non-ST elevated myocardial infarction. Cardiology consult requested. 4. Anemia of chronic kidney disease, stable. 5. Hypocalcemia due to acute kidney injury. 6. Hyperphosphatemia. Continue the patient on PhosLo. 7. Hypertension and hypertensive cardiovascular disease, currently hypotensive. Norvasc, losartan and Lopressor on hold. Continue IV Lasix 8. Elevated troponin. Repeat levels to be checked. Most likely due to acute kidney injury. 9. Hyperlipidemia. Stable at this time. 10. Chronic tobacco use and dependence. Patient quit smoking about 2 weeks ago. 11. Thrombocytopenia, currently stable. Monitor. 12. DVT prophylaxis. Heparin subcu. 13. GI prophylaxis. Pepcid. 14. Patient is a full code. Patient will be admitted to the hospital for a minimum of 2 night stay. Discharge plan: Return home Impression and plan of care have been directed as dictated by the signing physician. Anita Amaya nurse practitioner acting as scribe for signing physician.
[2018-01-15] MEDS: ALBUTEROL NEBULIZED 2.5 MG/3 ML INHALATION PRN ×2 (15:58→20:43)
[2018-01-15] MEDS: HEPARIN SODIUM,PORCINE 5,000 UNIT/ML 1 ML VIAL SQ SCH ×2 (16:39→21:59)
--- NOTE | 2018-01-15 17:49 | CONS ---
CONSULTATION Patient was just discharged yesterday and readmitted last night with worsening shortness of breath. Chest x-ray showed evidence of CHF. Patient did have treatment of hemodialysis early this morning. He was on bypass initially and he is maintained on IV Lasix. Currently feeling better. He had his kidney biopsy done yesterday as inpatient, results of which are currently pending. PAST MEDICAL HISTORY: 1. Recent hospitalization for acute kidney injury, which was worked up, and patient was found to have positive ALEKS. He had kidney biopsy done yesterday. 2. Patient also has underlying history of COPD. 3. Gastroesophageal reflux disease. 4. Hyperlipidemia. 5. Hypertension. 6. Osteoarthritis. 7. Peptic ulcer disease. PAST SURGICAL HISTORY: 1. Previous EGD. 2. PermCath placement this admission. 3. Renal biopsy. SOCIAL HISTORY: Patient is a former smoker. No history of drug abuse or alcohol abuse. Patient just quit smoking only 2 weeks ago. HOME MEDICATIONS: 1. Lopressor. 2. Lasix. 3. Losartan. ALLERGIES: NONE. PHYSICAL EXAMINATION: Patient is comfortable. He is not in any acute distress. Blood pressure is 98/58, heart rate 80 per minute. He is afebrile. EXAMINATION OF THE HEART: S1, S2. EXAMINATION OF LUNGS: Bilateral breath sounds are heard. ABDOMEN: Soft, non-tender. Examination of lower extremities shows edema trace bilaterally. [employer] OFFICE SUPERVISOR exam is grossly intact. LABS: Sodium 139, serum creatinine 4.1, hemoglobin 7.7 g/dL. Troponin was 0.63. Repeat troponin went up to 2.8. ASSESSMENT: 1. 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 Currently patient is hemodialysis-dependent. We will maintain him on dialysis and he has chair time for a Sunday, Sunday, Sunday schedule. Patient will be dialyzed again tomorrow. 2. Shortness of breath associated with congestive heart failure and fluid overload, currently improved. Patient's troponin did returned goods sorter to be positive. 3. Anemia of chronic disease, maintained on Aranesp. There was no evidence of iron deficiency on his last admission. 4. Hypertension, currently controlled. PLAN: Hemodialysis today as well as in a.m. Continue with IV Lasix. Continue with Aranesp. Recommend cardiology consult. Thank you for this consultation. We will continue to follow the patient with you during his hospitalization. MMODL / IJN: [id number] /
[2018-01-16] MEDS: ALBUTEROL NEBULIZED 2.5 MG/3 ML INHALATION PRN ×5 (00:23→21:19)
[2018-01-16 06:26] LABS: Albumin 2.6 g/dL (3.5-5.0); Calcium 7.6 mg/dL (8.4-10.2); Potassium 3.9 mmol/L (3.5-5.1); Total Bilirubin 0.4 mg/dL (0.2-1.3); Total Protein 4.6 g/dL (6.3-8.2)
[2018-01-16] MEDS: CALCIUM ACETATE 667 MG CAP PO SCH ×3 (06:28→17:12)
--- NOTE | 2018-01-16 09:20 | P.PN ---
Subjective Patient is seen in follow-up for acute kidney injury, currently hemodialysis dependent. Patient was discharged from the hospital on Sunday after undergoing a kidney biopsy. He had dialysis on Sunday as well. On Sunday he became acutely short of breath and came to the hospital. He did receive dialysis yesterday. He is again undergoing hemodialysis now and his dyspnea is gradually improving. He does have diastolic CHF and mild to moderate tricuspid regurgitation. He is also maintained on IV Lasix. Oral intake is good. Hemodynamically stable. Vital signs are stable. General: The patient appeared well nourished and normally developed. HEENT: Head exam is unremarkable. Neck is without jugular venous distension. LUNGS: Lungs are clear to auscultation and percussion. Breath sounds decreased. HEART: Rate and Rhythm are regular. First and second heart sounds normal. No murmurs, rubs or gallops. ABDOMEN: Abdominal exam reveals normal bowel sounds. Non-tender and non- distended. No evidence of peritonitis. EXTREMITITES: No clubbing, cyanosis, or edema. Objective - Vital Signs Vital signs: Vital Signs Temp 97.8 F 01/16/18 03:38 Pulse 97 01/16/18 08:15 Resp 28 H 01/16/18 03:38 BP 131/62 01/16/18 03:38 Pulse Ox 94 L 01/16/18 08:03 Intake & Output 01/15/18 01/16/18 01/16/18 18:59 06:59 18:59 Intake Total 298 240 Output Total 225 Balance 298 -225 240 Weight 93 kg 111.5 kg Intake: Oral 298 240 Output: Urine 225 Other: Voiding Method Urinal # Voids 0 - Labs CBC & Chem 7: 01/15/18 04:28 01/16/18 05:53 Labs: Abnormal Lab Results - Last 24 Hours (Table) 01/15/18 01/15/18 01/16/18 Range/Units 13:03 18:58 05:53 BUN 32 H (9-20) mg/dL Creatinine 3.80 H (0.66-1.25) mg/dL Calcium 7.6 L (8.4-10.2) mg/dL Troponin I 2.820 H* 3.520 H* (0.000-0.034) ng/mL Total Protein 4.6 L (6.3-8.2) g/dL Albumin 2.6 L (3.5-5.0) g/dL Assessment and Plan Plan: Assessment: 1. Acute kidney injury currently hemodialysis dependent. 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 Kidney biopsy done on January 14. 2. Volume overload. Improved post ultrafiltration. 3. Hyperphosphatemia secondary to acute kidney injury maintained on PhosLo. 4. Anemia. Rule out iron deficiency. Plan: Currently undergoing hemodialysis. Next treatment on Sunday. I will change Lasix to 80 mg orally twice daily. Check iron studies. Maintain Aranesp. Await kidney biopsy results.
[2018-01-16] MEDS: FUROSEMIDE 10 MG/ML 4 ML VIAL IV SCH (09:30)
--- NOTE | 2018-01-16 11:52 | P.CRDCN ---
History of Present Illness Consult date: 01/16/18 Requesting physician: Freddy Vasquez Consult reason: congestive heart failure, shortness of breath Chief complaint: Shortness of breath History of present illness: This is a pleasant 62-year-old gentleman with known history of hypertension, hyperlipidemia, nicotine dependence, chronic kidney disease stage II, who was recently in the hospital diagnosed with acute kidney injury and volume overload. Patient was initiated on hemodialysis. He underwent a renal biopsy on Sunday and was discharged home, shortly thereafter he developed sudden onset of shortness of breath. Patient also states that he was experiencing some pressure and tightness across the chest area. EMS was called, patient was found to be quite short of breath on arrival. Chest x-ray showed bibasilar atelectasis and/or infiltrates worsening from prior. Moderate left pleural effusion increased since prior study, probable right pleural effusion. Mild pulmonary vascular congestion, worse prior. Blood pressure on arrival here 148/ 70 with a heart rate of 100, temperature 98.6, 80% on CPAP. Blood pressure this morning 128/60 with a heart rate in the 90s, 93% on 8 L high flow. White blood cell count 11.9, hemoglobin 7.7, platelet count 158. Sodium 140, potassium 3.9, BUN 32, creatinine 3.8. Creatinine on admission 4.4. DNP level on admission 20,600. BNP level on the seventh of this month 16,300. Troponin 0.63, 2.8, 3.5. EKG performed on arrival here showed a normal sinus rhythm with nonspecific ST-T wave changes noted in V1. Subsequent EKG shows normal sinus rhythm with nonspecific ST changes. Patient was given a dose of IV Lasix in the emergency room, he is currently undergoing dialysis at the time of my examination. He did have an echocardiogram with Doppler study performed on January 07 which revealed an ejection fraction of 55-60%, mild to moderate tricuspid regurg. Past Medical History Past Medical History: COPD, GERD/Reflux, GI Bleed, Hyperlipidemia, Hypertension , Osteoarthritis (OA), Prostate Disorder, Renal Disease Additional Past Medical History / Comment(s): Chronic lower extremity edema, decreased urinary stream lately, 1991 somach ulcer with hematemesis, acute kidney injury on hemodialysis. History of Any Multi-Drug Resistant Organisms: None Reported Past Surgical History: No Surgical Hx Reported Additional Past Surgical History / Comment(s): EGD, PermCath, renal biopsy Past Anesthesia/Blood Transfusion Reactions: No Reported Reaction Additional Past Anesthesia/Blood Transfusion Reaction / Comment(s): Pt received blood years ago with his stomach ulcer bleed-no reaction. Past Psychological History: No Psychological Hx Reported Additional Psychological History / Comment(s): Pt resides with his spouse and 2 children. He is independent. He understands spoken Spanish fairly well but written Spanish is alittle difficult for him. He is fluent in [place]ive[place]. Smoking Status: Former smoker Past Alcohol Use History: Unable to Obtain Additional Past Alcohol Use History / Comment(s): Pt started smoking in 1981 and states he quit 2 weeks ago. Past Drug Use History: Unable to Obtain - Past Family History Father Family Medical History: Asthma Additional Family Medical History / Comment(s): Father at the age of 64yrs. Mother Family Medical History: Myocardial Infarction (DE) Additional Family Medical History / Comment(s): Mother had a DE sometime prior to age 60yrs. She is 86yrs old. Brother(s) Family Medical History: No Reported History Sister(s) Family Medical History: No Reported History Son(s) Family Medical History: No Reported History Daughter(s) Family Medical History: No Reported History Medications and Allergies Home Medications Medication Instructions Recorded Confirmed Type Metoprolol Tartrate [Lopressor] 50 mg PO BID 01/02/18 01/15/18 History amLODIPine BESYLATE [Norvasc] 10 mg PO DAILY 01/02/18 01/15/18 History Brimonidine Tartrate [Alphagan P 1 drops RIGHT EYE DAILY ml 01/10/18 01/15/18 Rx 0.2% Ophth Soln] Cetirizine HCl [Zyrtec] 10 mg PO DAILY 01/15/18 01/15/18 History Fluticasone Nasal [place] [Flonase 2 spr EA NOSTRIL DAILY 01/15/18 01/15/18 History Nasal [place]] Furosemide [Lasix] 40 mg PO DAILY 01/15/18 01/15/18 History Losartan Potassium 100 mg PO DAILY 01/15/18 01/15/18 History Allergies Allergy/AdvReac Type Severity Reaction Status Date / Time No Known Allergies Allergy Verified 01/15/18 09:33 Physical Exam Vitals: Vital Signs Temp Pulse Pulse Resp BP Pulse Ox 01/16/18 11:27 93 18 01/16/18 11:25 93 18 129/69 93 L 01/16/18 08:15 97 01/16/18 08:03 96 94 L 01/16/18 08:00 98 16 104/57 99 01/16/18 03:38 97.8 F 110 H 28 H 131/62 88 L 01/16/18 00:35 90 01/16/18 00:20 105 H 01/16/18 00:00 97.9 F 96 26 H 129/69 83 L 01/15/18 20:54 80 16 01/15/18 20:45 78 16 01/15/18 19:50 98.2 F 103 H 18 122/61 92 L 01/15/18 16:09 72 16 01/15/18 16:00 81 16 120/66 98 01/15/18 15:58 68 16 Intake and Output 01/15/18 01/16/18 01/16/18 22:59 06:59 14:59 Intake Total 180 240 Output Total 75 150 Balance 105 -150 240 Intake: Oral 180 240 Output: Urine 75 150 Other: Voiding Method Urinal Urinal Weight 111.5 kg PHYSICAL EXAMINATION: HEENT: Head is atraumatic, normocephalic. Pupils equal, round. Neck is supple. There is elevated jugular venous pressure. HEART EXAMINATION: Heart S1 and S2 systolic murmur is heard. CHEST EXAMINATION: Lungs reveal diminished air entry bilaterally to the bases ABDOMEN: Soft, nontender. Bowel sounds are heard. No organomegaly noted. EXTREMITIES: 2+ peripheral pulses with trace no evidence of peripheral edema and no calf tenderness noted. NEUROLOGIC patient is awake, alert and oriented -3. . Results 01/15/18 04:28 01/16/18 05:53 Cardiac Enzymes 01/15/18 01/15/18 01/16/18 Range/Units 13:03 18:58 05:53 AST 28 (17-59) U/L Troponin I 2.820 H* 3.520 H* (0.000-0.034) ng/mL Comprehensive Metabolic Panel 01/16/18 Range/Units 05:53 Sodium 140 (137-145) mmol/L Potassium 3.9 (3.5-5.1) mmol/L Chloride 101 (98-107) mmol/L Carbon Dioxide 28 (22-30) mmol/L BUN 32 H (9-20) mg/dL Creatinine 3.80 H (0.66-1.25) mg/dL Glucose 99 (74-99) mg/dL Calcium 7.6 L (8.4-10.2) mg/dL AST 28 (17-59) U/L ALT 38 (21-72) U/L Alkaline Phosphatase 83 (38-126) U/L Total Protein 4.6 L (6.3-8.2) g/dL Albumin 2.6 L (3.5-5.0) g/dL Current Medications Generic Name Dose Route Start Last Admin Trade Name Freq PRN Reason Stop Dose Admin Albuterol Sulfate 2.5 mg 01/15/18 06:53 01/16/18 08:03 Ventolin Nebulized INHALATION 2.5 mg RT-Q6H PRN Administration Wheezing Brimonidine Tartrate 1 drops 01/15/18 09:00 01/15/18 09:52 Alphagan P 0.2% Ophth Soln RIGHT EYE 1 drops DAILY FENG Administration Calcium Acetate 667 mg 01/15/18 07:30 01/16/18 06:28 Phoslo PO 667 mg TID-W/MEALS FENG Administration Darbepoetin Gerry 40 mcg 01/19/18 18:00 Aranesp SQ Q7D FENG Ergocalciferol 50,000 unit 01/19/18 12:00 Vitamin D2 PO Q7D FENG Famotidine 10 mg 01/15/18 06:53 Pepcid PO DAILY PRN Heartburn Furosemide 80 mg 01/16/18 16:00 Lasix PO BID@0900,1600 [facility] Heparin Sodium (Porcine) 5,000 unit 01/15/18 16:00 01/15/18 21:59 Heparin SQ 5,000 unit Q8HR FENG Administration Sodium Chloride 10 ml 01/15/18 09:00 01/15/18 21:59 Saline Flush IV 10 ml BID FENG Administration Tamsulosin HCl 0.4 mg 01/15/18 08:30 01/15/18 09:52 Flomax PO 0.4 mg [id number] FENG Administration Intake and Output 01/15/18 01/16/18 01/16/18 22:59 06:59 14:59 Intake Total 180 240 Output Total 75 150 Balance 105 -150 240 Intake: Oral 180 240 Output: Urine 75 150 Other: Voiding Method Urinal Urinal Weight 111.5 kg 01/15/18 04:28 01/16/18 05:53 EKG Interpretations (text) EKG shows a normal sinus rhythm with nonspecific ST-T wave changes. Assessment and Plan Plan: Assessment and plan #1 symptoms of sudden onset of shortness of breath, acute respiratory failure requiring BiPAP, evidence of a pleural effusion, congestive heart failure, diastolic, acute on chronic. #2 acute on chronic kidney disease, stage II, on hemodialysis #3 chest tightness and heaviness, suggesting possible acute coronary syndrome. Troponins 0.6, 2.8, 3.5. #4 anemia of chronic disease # 5 hypertension #6 hyperlipidemia #7 nicotine dependence #8 COPD Plan Patient did just have an echo performed on the seventh of this month, but because of abnormal troponins we will repeat a limited echo to assess LV function. Continue diuresing the patient with IV Lasix. Once patient is stable from a heart failure perspective, he may require cardiac catheterization down the road. DNP note has been reviewed, I agree with a documented findings and plan of care. Patient was seen and examined.
[2018-01-16] MEDS: TAMSULOSIN 0.4 MG CAP.ER.24H PO SCH (12:32)
[2018-01-16] MEDS: ATORVASTATIN 40 MG TAB PO SCH (12:32)
[2018-01-16] MEDS: BRIMONIDINE TARTRATE 0.2% DROPS 5 ML BTL RIGHT EYE SCH (12:33)
[2018-01-16] MEDS: METOPROLOL TARTRATE 12.5 MG TAB PO SCH ×2 (12:33→21:06)
[2018-01-16] MEDS: HEPARIN SODIUM,PORCINE 5,000 UNIT/ML 1 ML VIAL SQ SCH ×3 (12:33→23:28)
[2018-01-16] MEDS: ASPIRIN 81 MG PO SCH (12:33)
[2018-01-16 13:12] VITALS: BMI 36.3
[2018-01-16 15:31] LABS: Appearance,Urine Cloudy (Clear); Bacteria,Urine Few /hpf; Bilirubin,Urine Negative (Negative); Blood,Urine Moderate (Negative); Color,Urine Yellow; Glucose,Urine (UA) Negative (Negative); Hyaline Casts,Urine 3 /lpf (0-2); Ketones,Urine Negative (Negative); Leukocyte Esterase,Urine Negative (Negative); Mucus,Urine Rare /hpf; Nitrite,Urine Negative (Negative); Protein,Urine 3+ (Negative); RBC,Urine 39 /hpf (0-5); Sperm,Urine Moderate /hpf; Squamous Epithelial Cell,Urine <1 /hpf (0-4); Urobilinogen,Urine <2.0 mg/dL (<2.0); WBC,Urine 10 /hpf (0-5)
[2018-01-16] MEDS ORDERED: FUROSEMIDE 80 MG TAB PO SCH (16:00)
[2018-01-16 16:54] LABS: Iron Saturation 7.42 (15.00-50.00)
[2018-01-16 18:22] LABS: Hemoglobin A1C 5.3 % (4.0-6.0)
--- NOTE | 2018-01-16 21:11 | ECHOF ---
Referral Reason:limited study assess lvf MEASUREMENTS -------- HEIGHT: 175.3 cm WEIGHT: 111.1 kg BP: IVSd: 1.0 cm (0.6 - 1.1) LVIDd: 5.0 cm (3.9 - 5.3) LVPWd: 1.0 cm (0.6 - 1.1) IVSs: 1.5 cm LVIDs: 4.0 cm LVPWs: 1.3 cm RAP: 5.00 mmHg RVSP: 34.31 mmHg FINDINGS -------- Sinus rhythm. Limited Study for LV function The left ventricular size is normal. Left ventricular wall thickness is normal. Overall left vent ricular systolic function is mild-moderately impaired with, an EF between 40 - 45 %. Mid inferior L V wall motion is hypokinetic. Mid inferoseptal LV wall motion is hypokinetic. Apical inferior L V wall motion is hypokinetic. Basal inferolateral hypokinesis. Rywhbfvs-xu-abxeaf mitral regurgitation is present. Mild tricuspid regurgitation present. The right ventricular systolic pressure, as measured by Doppl er, is 34.31mmHg. CONCLUSIONS -------- 1. Sinus rhythm. 2. Limited Study for LV function 3. The left ventricular size is normal. 4. Left ventricular wall thickness is normal. 5. Overall left ventricular systolic function is mild-moderately impaired with, an EF between 40 - 45 %. 6. Mid inferior LV wall motion is hypokinetic. 7. Mid inferoseptal LV wall motion is hypokinetic. 8. Apical inferior LV wall motion is hypokinetic. 9. Basal inferolateral hypokinesis. 10. Eatagejn-qt-eetqoi mitral regurgitation is present. 11. Mild tricuspid regurgitation present. 12. The right ventricular systolic pressure, as measured by Doppler, is 34.31mmHg. CASING PULLER: Ivonne Fragoso RDCS
[2018-01-17] MEDS: CALCIUM ACETATE 667 MG CAP PO SCH ×3 (07:01→18:00)
[2018-01-17] MEDS: ALBUTEROL NEBULIZED 2.5 MG/3 ML INHALATION PRN ×3 (08:43→21:21)
[2018-01-17] MEDS: TAMSULOSIN 0.4 MG CAP.ER.24H PO SCH (08:48)
[2018-01-17] MEDS: HEPARIN SODIUM,PORCINE 5,000 UNIT/ML 1 ML VIAL SQ SCH (08:48)
[2018-01-17] MEDS: ATORVASTATIN 40 MG TAB PO SCH (08:48)
[2018-01-17] MEDS: METOPROLOL TARTRATE 12.5 MG TAB PO SCH ×2 (08:49→20:34)
[2018-01-17] MEDS: BRIMONIDINE TARTRATE 0.2% DROPS 5 ML BTL RIGHT EYE SCH (08:50)
[2018-01-17] MEDS: ASPIRIN 81 MG PO SCH (08:51)
[2018-01-17] MEDS: FUROSEMIDE 10 MG/ML 4 ML VIAL IV SCH ×2 (09:05→10:48)
[2018-01-17] MEDS ORDERED: MD COMMUNICATION TO PHARMACY 1 EACH MISC PO PRN (09:35)
--- NOTE | 2018-01-17 09:36 | P.PN ---
Subjective Patient is seen in follow-up for acute kidney injury, currently hemodialysis dependent. Patient was discharged from the hospital on Sunday after undergoing a kidney biopsy. He had dialysis on Sunday as well. On Sunday he became acutely short of breath and came to the hospital. He was noted to be in fluid overload and has undergone hemodialysis the last 3 days in a row. He is noted to have ejection fraction of 40-45% with moderate to severe mitral regurgitation. He is also maintained on IV Lasix. Oral intake is good. Hemodynamically stable. He gets dyspneic even with minimal exertion. Vital signs are stable. General: The patient appeared well nourished and normally developed. HEENT: Head exam is unremarkable. Neck is without jugular venous distension. LUNGS: Lungs are clear to auscultation and percussion. Breath sounds decreased. HEART: Rate and Rhythm are regular. First and second heart sounds normal. No murmurs, rubs or gallops. ABDOMEN: Abdominal exam reveals normal bowel sounds. Non-tender and non- distended. No evidence of peritonitis. EXTREMITITES: No clubbing, cyanosis, or edema. Objective - Vital Signs Vital signs: Vital Signs Temp 99.0 F 01/17/18 04:00 Pulse 96 01/17/18 08:57 Resp 18 01/17/18 04:00 BP 143/74 01/17/18 04:00 Pulse Ox 95 01/17/18 08:45 Intake & Output 01/16/18 01/17/18 01/17/18 18:59 06:59 18:59 Intake Total 713 Output Total 1 Balance 713 -1 Weight 111.5 kg 87.4 kg Intake: Oral 713 Output: Urine 0 Urine/Stool Mix 1 Other: Voiding Method Toilet Urinal # Voids 1 1 # Bowel Movements 1 - Labs CBC & Chem 7: 01/15/18 04:28 01/16/18 05:53 Labs: Abnormal Lab Results - Last 24 Hours (Table) 01/16/18 01/16/18 Range/Units 05:53 14:09 Iron 17 L (65-175) ug/dL Iron Saturation 7.42 L (15.00-50.00) Urine Protein 3+ H (Negative) Urine Blood Moderate H (Negative) Urine RBC 39 H (0-5) /hpf Urine WBC 10 H (0-5) /hpf Urine Bacteria Few H (None) /hpf Hyaline Casts 3 H (0-2) /lpf Urine Mucus Rare H (None) /hpf Urine Sperm Moderate H (None) /hpf Assessment and Plan Plan: Assessment: 1. Acute kidney injury currently hemodialysis dependent. 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 2. Volume overload. Improving ultrafiltration. 3. Hyperphosphatemia secondary to acute kidney injury maintained on PhosLo. 4. Anemia. Iron deficiency noted. 5. Systolic CHF with ejection fraction of 40-45% with mild to moderate mitral regurgitation. Plan: Hemodialysis today with goal 3 L at filtration. Another treatment tomorrow. Maintain Aranesp. Ferrlecit 125 mg IV daily for 3 days. First dose today. Patient and family are agreeable to proceed with repeat kidney biopsy.
[2018-01-17] MEDS: FUROSEMIDE 10 MG/ML 10 ML VIAL IV SCH ×3 (10:23→23:40)
[2018-01-17] MEDS: SODIUM FERRIC GLUCONAT-SUCROSE 125 MG in SODIUM CHLORIDE 0.9% 100 ML IVPB SCH (10:28)
--- NOTE | 2018-01-17 11:50 | P.PN ---
Subjective Progress Note Date: 01/16/18 This is a 62-year-old male patient of Dr. Bains with a past medical history of hypertension and hypertensive cardiovascular disease, hyperlipidemia, chronic kidney disease stage 2, chronic tobacco use and dependence, history of hematuria. He had recent hospitalization and was diagnosed with acute kidney injury and treated for hyperphosphatemia, hyperkalemia and volume overload. Patient had PermCath placed by Dr. Robledo and was started on hemodialysis. On Sunday he underwent a renal biopsy and was discharged home. Patient developed sudden onset of severe shortness of breath shortly after he arrived at home. Patient presented back to [facility] emergency center by EMS. Patient was found by EMS to be quite dyspneic and placed him on CPAP and gave him albuterol nebulizer treatment. BUN was 34 and creatinine 4.10, hemoglobin 7.7, potassium 4.4. Blood sugar was 206. Patient does not have history of diabetes. Troponin 0.631. ProBNP was 20,600. Chest x-ray revealed bibasilar atelectasis and/or infiltrates, interval worsening since prior study. Moderate left pleural effusion, interval increase in size since prior study. Probable small right pleural effusion. Mild pulmonary vascular congestion/pulmonary edema is suggested. Interval worsening since prior study. Patient was given 1 dose of IV Lasix 40 mg in the ER and admitted to the selective care unit. Consult in place with nephrology and repeat troponins of been ordered. Patient has been on BiPAP and switched over to high flow O2 this morning. Patient states he has improvement of his breathing but with any movement he becomes much worse. He is undergoing hemodialysis at this time. His bilateral arm edema is improved from yesterday. He is currently on O2 at 6 L high flow nasal cannula. His repeat troponin came back at 2.8 and cardiology consult has been requested. Patient was hypotensive this morning and Norvasc, Lopressor losartan are on hold. Patient is continued on Lasix 40 mg IV every 8 hours. 01/16: Patient is undergoing hemodialysis today. BUN 32 and creatinine 3.8. Blood pressure is improved. Repeat troponin came back at 2.8-0 and 3.5-0. Patient has been seen by cardiology for non-ST elevated myocardial infarction. They have started him on aspirin, statin and beta keena of Lopressor 12.5 mg twice daily. Patient is currently pulse ox is 93% on 8 L nasal cannula high flow. Objective - Vital Signs Vital signs: Vital Signs Temp 97.8 F 01/16/18 03:38 Pulse 93 01/16/18 11:27 Resp 18 01/16/18 11:27 BP 129/69 01/16/18 11:25 Pulse Ox 93 L 01/16/18 11:25 Intake & Output 01/15/18 01/16/18 01/16/18 18:59 06:59 18:59 Intake Total 298 240 Output Total 225 Balance 298 -225 240 Weight 93 kg 111.5 kg Intake: Oral 298 240 Output: Urine 225 Other: Voiding Method Urinal Urinal # Voids 0 - Exam General appearance: Present: average body habitus, no acute distress - EENT Eyes: Present: EOMI, PERRLA ENT: Present: normal oropharynx Ears: bilateral: normal - Neck Neck: Present: normal ROM. Absent: lymphadenopathy Carotids: bilateral: upstroke normal Thyroid: bilateral: normal size - Respiratory Respiratory: bilateral: Diminished, crackles, negative: dullness, prolonged expiration - Cardiovascular Rhythm: regular Heart sounds: normal: S1, S2 Abnormal Heart Sounds: Absent: systolic murmur, diastolic murmur, rub - Peripheral edema foot Peripheral Edema: bilateral: None - Gastrointestinal General gastrointestinal: Present: normal bowel sounds, soft. Absent: distended , tenderness - Integumentary Integumentary: Absent: palor, cyanotic - Neurologic Neurologic: Present: CNII-XII intact - Musculoskeletal Musculoskeletal: Present: gait normal, strength equal bilaterally - Psychiatric Psychiatric: Present: A&O x's 3, appropriate affect - Labs CBC & Chem 7: 01/15/18 04:28 01/16/18 05:53 Labs: Abnormal Lab Results - Last 24 Hours (Table) 01/15/18 01/15/18 01/16/18 Range/Units 13:03 18:58 05:53 BUN 32 H (9-20) mg/dL Creatinine 3.80 H (0.66-1.25) mg/dL Calcium 7.6 L (8.4-10.2) mg/dL Troponin I 2.820 H* 3.520 H* (0.000-0.034) ng/mL Total Protein 4.6 L (6.3-8.2) g/dL Albumin 2.6 L (3.5-5.0) g/dL Assessment and Plan Plan: 1. Acute hypoxic respiratory and failure requiring BiPAP secondary to pleural effusion and pulmonary edema secondary to acute on chronic diastolic heart failure. Patient has been on BiPAP and transitioned to high flow O2 by nasal cannula. Maintain pulse ox of 90%. Continue Lasix 40 mg IV every 8 hours. Patient is undergoing hemodialysis. 2. Acute kidney injury and top of chronic kidney disease stage II secondary to acute tubular necrosis requiring hemodialysis, presenting with fluid overload. Lasix 40 mg IV every 8 hours. Consult with nephrology. Patient is scheduled for hemodialysis today. 3. Non-ST elevated myocardial infarction. Cardiology consult appreciated. Patient has been started on aspirin, statin and Lopressor 12.5 g twice daily. Patient may need heart catheterization once respiratory status is stabilized. Echocardiogram ordered. 4. Anemia of chronic kidney disease, stable. 5. Hypocalcemia due to acute kidney injury. 6. Hyperphosphatemia. Continue the patient on PhosLo. 7. Hypertension and hypertensive cardiovascular disease, currently hypotensive. Norvasc, losartan and Lopressor on hold. Continue IV Lasix 8. Elevated troponin. Repeat levels to be checked. Most likely due to acute kidney injury. 9. Hyperlipidemia. Stable at this time. 10. Chronic tobacco use and dependence. Patient quit smoking about 2 weeks ago. 11. Thrombocytopenia, currently stable. Monitor. 12. DVT prophylaxis. Heparin subcu. 13. GI prophylaxis. Pepcid. 14. Patient is a full code. Patient will be admitted to the hospital for a minimum of 2 night stay. Discharge plan: Return home Impression and plan of care have been directed as dictated by the signing physician. Anita Amaya nurse practitioner acting as scribe for signing physician.
--- NOTE | 2018-01-17 12:04 | P.PN ---
Subjective Progress Note Date: 01/17/18 This is a 62-year-old male patient of Dr. Bains with a past medical history of hypertension and hypertensive cardiovascular disease, hyperlipidemia, chronic kidney disease stage 2, chronic tobacco use and dependence, history of hematuria. He had recent hospitalization and was diagnosed with acute kidney injury and treated for hyperphosphatemia, hyperkalemia and volume overload. Patient had PermCath placed by Dr. Robledo and was started on hemodialysis. On Sunday he underwent a renal biopsy and was discharged home. Patient developed sudden onset of severe shortness of breath shortly after he arrived at home. Patient presented back to [facility] emergency center by EMS. Patient was found by EMS to be quite dyspneic and placed him on CPAP and gave him albuterol nebulizer treatment. BUN was 34 and creatinine 4.10, hemoglobin 7.7, potassium 4.4. Blood sugar was 206. Patient does not have history of diabetes. Troponin 0.631. ProBNP was 20,600. Chest x-ray revealed bibasilar atelectasis and/or infiltrates, interval worsening since prior study. Moderate left pleural effusion, interval increase in size since prior study. Probable small right pleural effusion. Mild pulmonary vascular congestion/pulmonary edema is suggested. Interval worsening since prior study. Patient was given 1 dose of IV Lasix 40 mg in the ER and admitted to the selective care unit. Consult in place with nephrology and repeat troponins of been ordered. Patient has been on BiPAP and switched over to high flow O2 this morning. Patient states he has improvement of his breathing but with any movement he becomes much worse. He is undergoing hemodialysis at this time. His bilateral arm edema is improved from yesterday. He is currently on O2 at 6 L high flow nasal cannula. His repeat troponin came back at 2.8 and cardiology consult has been requested. Patient was hypotensive this morning and Norvasc, Lopressor losartan are on hold. Patient is continued on Lasix 40 mg IV every 8 hours. 01/16: Patient is undergoing hemodialysis today. BUN 32 and creatinine 3.8. Blood pressure is improved. Repeat troponin came back at 2.8-0 and 3.5-0. Patient has been seen by cardiology for non-ST elevated myocardial infarction. They have started him on aspirin, statin and beta keena of Lopressor 12.5 mg twice daily. Patient is currently pulse ox is 93% on 8 L nasal cannula high flow. 01/17: Patient had a drop in his pulse ox 88% while on 6 L nasal cannula. Patient was eating at the time. Initially O2 was increased to 8 L but he's pulse oxing well now. We'll try to taper down oxygen. He has been afebrile. Discussed with Dr. Phipps and Lasix will be increased to 80 mg every 8 hours. Patient has been started on Ferrlecit. Apparently renal biopsy was not a good specimen and patient may have to have this repeated but now patient has been started on aspirin which will delay biopsy. Patient may need heart catheterization once respiratory status is improved. Repeat limited echo reveals EF of 40-45% with mild inferior, anteroseptal and apical inferior LV wall motion hypokinetic. Severe mitral regurgitation, mild tricuspid regurgitation. Patient is to have repeat hemodialysis today. Objective - Vital Signs Vital signs: Vital Signs Temp 99.0 F 01/17/18 04:00 Pulse 97 01/17/18 04:00 Resp 18 01/17/18 04:00 BP 143/74 01/17/18 04:00 Pulse Ox 92 L 01/17/18 04:00 Intake & Output 01/16/18 01/17/18 01/17/18 18:59 06:59 18:59 Intake Total 713 Output Total 1 Balance 713 -1 Weight 111.5 kg 87.4 kg Intake: Oral 713 Output: Urine 0 Urine/Stool Mix 1 Other: Voiding Method Toilet Urinal # Voids 1 1 # Bowel Movements 1 - Exam General appearance: Present: average body habitus, no acute distress - EENT Eyes: Present: EOMI, PERRLA ENT: Present: normal oropharynx Ears: bilateral: normal - Neck Neck: Present: normal ROM. Absent: lymphadenopathy Carotids: bilateral: upstroke normal Thyroid: bilateral: normal size - Respiratory Respiratory: bilateral: Diminished, crackles, negative: dullness, prolonged expiration - Cardiovascular Rhythm: regular Heart sounds: normal: S1, S2 Abnormal Heart Sounds: Absent: systolic murmur, diastolic murmur, rub - Peripheral edema foot Peripheral Edema: bilateral: None - Gastrointestinal General gastrointestinal: Present: normal bowel sounds, soft. Absent: distended , tenderness - Integumentary Integumentary: Absent: palor, cyanotic - Neurologic Neurologic: Present: CNII-XII intact - Musculoskeletal Musculoskeletal: Present: gait normal, strength equal bilaterally - Psychiatric Psychiatric: Present: A&O x's 3, appropriate affect - Labs CBC & Chem 7: 01/15/18 04:28 01/16/18 05:53 Labs: Abnormal Lab Results - Last 24 Hours (Table) 01/16/18 01/16/18 Range/Units 05:53 14:09 Iron 17 L (65-175) ug/dL Iron Saturation 7.42 L (15.00-50.00) Urine Protein 3+ H (Negative) Urine Blood Moderate H (Negative) Urine RBC 39 H (0-5) /hpf Urine WBC 10 H (0-5) /hpf Urine Bacteria Few H (None) /hpf Hyaline Casts 3 H (0-2) /lpf Urine Mucus Rare H (None) /hpf Urine Sperm Moderate H (None) /hpf Assessment and Plan Plan: 1. Acute hypoxic respiratory and failure requiring BiPAP secondary to pleural effusion and pulmonary edema secondary to acute on chronic diastolic heart failure. Patient has been on BiPAP and transitioned to high flow O2 by nasal cannula. Maintain pulse ox of 90%. Increase Lasix 80 mg IV every 8 hours. Patient is undergoing hemodialysis. 2. Acute kidney injury and top of chronic kidney disease stage II secondary to acute tubular necrosis requiring hemodialysis, presenting with fluid overload. Lasix 80 mg IV every 8 hours. Consult with nephrology. Patient is scheduled for hemodialysis today. 3. Elevated troponin, possible non-ST elevated myocardial infarction. Cardiology consult requested. Aspirin 81 mg, Lopressor, statin started. Patient main require heart catheterization once respiratory status is improved. 4. Anemia of chronic kidney disease, stable. Ferrlecit 3 doses. 5. Hypocalcemia due to acute kidney injury. 6. Hyperphosphatemia. Continue the patient on PhosLo. 7. Hypertension and hypertensive cardiovascular disease, currently hypotensive. Norvasc, losartan on hold. Continue IV Lasix 8. Elevated troponin. Repeat levels to be checked. Most likely due to acute kidney injury. 9. Hyperlipidemia. Stable at this time. 10. Chronic tobacco use and dependence. Patient quit smoking about 2 weeks ago. 11. Thrombocytopenia, currently stable. Monitor. 12. DVT prophylaxis. Heparin subcu. 13. GI prophylaxis. Pepcid. 14. Patient is a full code. Discharge plan: Return home Impression and plan of care have been directed as dictated by the signing physician. Anita Amaya nurse practitioner acting as scribe for signing physician.
[2018-01-17 12:29] LABS: Mean Platelet Volume 9.4; Platelet Count 146 k/uL (150-450)
[2018-01-17 12:41] LABS: INR 1.1 (<1.2); Prothrombin Time 10.9 sec (9.0-12.0)
--- NOTE | 2018-01-17 15:26 | P.PN ---
Subjective Progress Note Date: 01/17/18 This is a pleasant 62-year-old gentleman with known history of hypertension, hyperlipidemia, nicotine dependence, chronic kidney disease stage II, who was recently in the hospital diagnosed with acute kidney injury and volume overload. Patient was initiated on hemodialysis. He underwent a renal biopsy on Sunday and was discharged home, shortly thereafter he developed sudden onset of shortness of breath. Patient also states that he was experiencing some pressure and tightness across the chest area. EMS was called, patient was found to be quite short of breath on arrival. Chest x-ray showed bibasilar atelectasis and/or infiltrates worsening from prior. Moderate left pleural effusion increased since prior study, probable right pleural effusion. Mild pulmonary vascular congestion, worse prior. Blood pressure on arrival here 148/ 70 with a heart rate of 100, temperature 98.6, 80% on CPAP. Blood pressure this morning 128/60 with a heart rate in the 90s, 93% on 8 L high flow. White blood cell count 11.9, hemoglobin 7.7, platelet count 158. Sodium 140, potassium 3.9, BUN 32, creatinine 3.8. Creatinine on admission 4.4. DNP level on admission 20,600. BNP level on the seventh of this month 16,300. Troponin 0.63, 2.8, 3.5. EKG performed on arrival here showed a normal sinus rhythm with nonspecific ST-T wave changes noted in V1. Subsequent EKG shows normal sinus rhythm with nonspecific ST changes. Patient was given a dose of IV Lasix in the emergency room, he is currently undergoing dialysis at the time of my examination. He did have an echocardiogram with Doppler study performed on January 07 which revealed an ejection fraction of 55-60%, mild to moderate tricuspid regurg. 01/17/2018 A repeat echocardiogram with Doppler study to assess LV function was performed, ejection fraction 40-45%. Patient continues to be on IV diuretics, does state his breathing is improved but continues to have a fluid overload. It was again explained to the patient that he would need to undergo cardiac catheterization to rule out underlying coronary artery disease. I did speak with Dr. Phipps this afternoon, patient is scheduled to undergo a repeat biopsy tomorrow, therefore the aspirin today was placed on hold as well as a heparin. Once the biopsy is completed, from his perspective cardiac catheterization may be performed. At pressure today 128/60, heart rate in the 90s, 96% on 6 L of oxygen. Temperature 99.1. Objective - Vital Signs Vital signs: Vital Signs Temp 99.1 F 01/17/18 11:30 Pulse 96 01/17/18 13:27 Resp 18 01/17/18 11:30 BP 129/67 01/17/18 11:30 Pulse Ox 96 01/17/18 11:30 Intake & Output 01/16/18 01/17/18 01/17/18 18:59 06:59 18:59 Intake Total 713 Output Total 1 Balance 713 -1 Weight 111.5 kg 87.4 kg Intake: Oral 713 Output: Urine 0 Urine/Stool Mix 1 Other: Voiding Method Toilet Urinal Urinal # Voids 1 1 # Bowel Movements 1 - Exam PHYSICAL EXAMINATION: HEENT: Head is atraumatic, normocephalic. Pupils equal, round. Neck is supple. There is elevated jugular venous pressure. HEART EXAMINATION: Heart S1 and S2 systolic murmur is heard. CHEST EXAMINATION: Lungs reveal diminished air entry bilaterally to the bases ABDOMEN: Soft, nontender. Bowel sounds are heard. No organomegaly noted. EXTREMITIES: 2+ peripheral pulses with trace no evidence of peripheral edema and no calf tenderness noted. NEUROLOGIC patient is awake, alert and oriented -3. . - Labs CBC & Chem 7: 01/17/18 12:09 01/16/18 05:53 Labs: Abnormal Lab Results - Last 24 Hours (Table) 01/16/18 01/16/18 01/17/18 Range/Units 05:53 14:09 12:09 Plt Count 146 L (150-450) k/uL Iron 17 L (65-175) ug/dL Iron Saturation 7.42 L (15.00-50.00) Urine Protein 3+ H (Negative) Urine Blood Moderate H (Negative) Urine RBC 39 H (0-5) /hpf Urine WBC 10 H (0-5) /hpf Urine Bacteria Few H (None) /hpf Hyaline Casts 3 H (0-2) /lpf Urine Mucus Rare H (None) /hpf Urine Sperm Moderate H (None) /hpf Assessment and Plan Plan: Assessment and plan #1 symptoms of sudden onset of shortness of breath, acute respiratory failure requiring BiPAP, evidence of a pleural effusion, congestive heart failure, diastolic, acute on chronic. #2 acute on chronic kidney disease, stage II, on hemodialysis #3 chest tightness and heaviness, suggesting possible acute coronary syndrome. Troponins 0.6, 2.8, 3.5. #4 anemia of chronic disease # 5 hypertension #6 hyperlipidemia #7 nicotine dependence #8 COPD Plan Patient will require going for heart catheterization, at this time we will continue to diurese him. I did speak with Dr. Phipps, patient is scheduled to undergo a repeat biopsy tomorrow therefore his aspirin and heparin were placed on hold today. Once the patient is stable from a heart failure perspective, during this admission, he is cleared to undergo cardiac catheterization by nephrology. DNP note has been reviewed, I agree with a documented findings and plan of care. Patient was seen and examined.
[2018-01-17 16:51] LABS: Potassium 3.4 mmol/L (3.5-5.1)
[2018-01-17 17:11] LABS: Calcium 6.1 mg/dL (8.4-10.2)
[2018-01-17] MEDS ORDERED: CALCIUM CHLORIDE 1,000 MG in SODIUM CHLORIDE 0.9% 100 ML IVPB STA (17:19)
[2018-01-17] MEDS ORDERED: CALCIUM GLUCONATE 1,000 MG in SODIUM CHLORIDE 0.9% 100 ML IVPB STA (17:31)
[2018-01-18] MEDS ORDERED: SODIUM CHLORIDE 0.9% IVPB ONE (06:30)
[2018-01-18] MEDS ORDERED: DESMOPRESSIN IVPB ONE (06:30)
[2018-01-18 06:49] LABS: HCT 26.5 % (39.0-53.0); HGB 7.6 gm/dL (13.0-17.5); Hypochromasia Marked; MCH 26.5 pg (25.0-35.0); MCHC 28.6 g/dL (31.0-37.0); MCV 92.6 fL (80.0-100.0); Mean Platelet Volume 8.1; Platelet Count 165 k/uL (150-450); RBC 2.86 m/uL (4.30-5.90); RDW 15.6 % (11.5-15.5); WBC 7.6 k/uL (3.8-10.6)
[2018-01-18 07:00] LABS: Calcium 8.3 mg/dL (8.4-10.2); Phosphorus 3.6 mg/dL (2.5-4.5); Potassium 4.3 mmol/L (3.5-5.1)
[2018-01-18] MEDS: CALCIUM ACETATE 667 MG CAP PO SCH ×3 (07:57→18:09)
[2018-01-18] MEDS: ALBUTEROL NEBULIZED 2.5 MG/3 ML INHALATION PRN ×3 (08:06→20:21)
[2018-01-18] MEDS: BRIMONIDINE TARTRATE 0.2% DROPS 5 ML BTL RIGHT EYE SCH (08:29)
[2018-01-18] MEDS: FUROSEMIDE 10 MG/ML 10 ML VIAL IV SCH ×2 (08:29→18:09)
[2018-01-18] MEDS: SODIUM FERRIC GLUCONAT-SUCROSE 125 MG in SODIUM CHLORIDE 0.9% 100 ML IVPB SCH (10:07)
[2018-01-18] MEDS: METOPROLOL TARTRATE 12.5 MG TAB PO SCH ×2 (10:07→20:30)
[2018-01-18] MEDS: ATORVASTATIN 40 MG TAB PO SCH (10:08)
[2018-01-18] MEDS: TAMSULOSIN 0.4 MG CAP.ER.24H PO SCH (10:08)
--- NOTE | 2018-01-18 12:13 | CT ---
EXAMINATION TYPE: CT biopsy renal RT DATE OF EXAM: 01/18/2018 COMPARISON: NONE HISTORY: Renal failure CT DLP: 2390 mGycm The procedure was explained to the patient. The risks, complications, benefits, and alternatives wer e discussed and any questions were answered. Informed consent was obtained. Patient was placed pron e on the CT table and prepped and draped in the usual sterile fashion. Utilizing CT guidance, an 18 gauge core biopsy needle access into the right renal cortex was achieved and three 18 gauge core samples were obtained. The patient was stable throughout the procedure and remained stable upon discharge. IMPRESSION: Successful 18 gauge core biopsy of the kidney function.
--- NOTE | 2018-01-18 14:09 | P.PN ---
Subjective Progress Note Date: 01/18/18 This is a 62-year-old male patient of Dr. Bains with a past medical history of hypertension and hypertensive cardiovascular disease, hyperlipidemia, chronic kidney disease stage 2, chronic tobacco use and dependence, history of hematuria. He had recent hospitalization and was diagnosed with acute kidney injury and treated for hyperphosphatemia, hyperkalemia and volume overload. Patient had PermCath placed by Dr. Robledo and was started on hemodialysis. On Sunday he underwent a renal biopsy and was discharged home. Patient developed sudden onset of severe shortness of breath shortly after he arrived at home. Patient presented back to [facility] emergency center by EMS. Patient was found by EMS to be quite dyspneic and placed him on CPAP and gave him albuterol nebulizer treatment. BUN was 34 and creatinine 4.10, hemoglobin 7.7, potassium 4.4. Blood sugar was 206. Patient does not have history of diabetes. Troponin 0.631. ProBNP was 20,600. Chest x-ray revealed bibasilar atelectasis and/or infiltrates, interval worsening since prior study. Moderate left pleural effusion, interval increase in size since prior study. Probable small right pleural effusion. Mild pulmonary vascular congestion/pulmonary edema is suggested. Interval worsening since prior study. Patient was given 1 dose of IV Lasix 40 mg in the ER and admitted to the selective care unit. Consult in place with nephrology and repeat troponins of been ordered. Patient has been on BiPAP and switched over to high flow O2 this morning. Patient states he has improvement of his breathing but with any movement he becomes much worse. He is undergoing hemodialysis at this time. His bilateral arm edema is improved from yesterday. He is currently on O2 at 6 L high flow nasal cannula. His repeat troponin came back at 2.8 and cardiology consult has been requested. Patient was hypotensive this morning and Norvasc, Lopressor losartan are on hold. Patient is continued on Lasix 40 mg IV every 8 hours. 01/16: Patient is undergoing hemodialysis today. BUN 32 and creatinine 3.8. Blood pressure is improved. Repeat troponin came back at 2.8-0 and 3.5-0. Patient has been seen by cardiology for non-ST elevated myocardial infarction. They have started him on aspirin, statin and beta keena of Lopressor 12.5 mg twice daily. Patient is currently pulse ox is 93% on 8 L nasal cannula high flow. 01/17: Patient had a drop in his pulse ox 88% while on 6 L nasal cannula. Patient was eating at the time. Initially O2 was increased to 8 L but he's pulse oxing well now. We'll try to taper down oxygen. He has been afebrile. Discussed with Dr. Phipps and Lasix will be increased to 80 mg every 8 hours. Patient has been started on Ferrlecit. Apparently renal biopsy was not a good specimen and patient may have to have this repeated but now patient has been started on aspirin which will delay biopsy. Patient may need heart catheterization once respiratory status is improved. Repeat limited echo reveals EF of 40-45% with mild inferior, anteroseptal and apical inferior LV wall motion hypokinetic. Severe mitral regurgitation, mild tricuspid regurgitation. Patient is to have repeat hemodialysis today. 01/18: Hemoglobin 7.6, BUN 21 and creatinine 3.10. Pulse ox is running 95% on 6 L high flow O2. Repeat renal biopsy by CAT scan done today and patient has had a small amount of bleeding at this site. This has resolved. His vital signs have been stable. We will plan to recheck hemoglobin at 4 PM and tomorrow morning. Patient is continued on Lasix 80 mg IV every 8 hours. Plan is for heart catheterization once respiratory status is stabilized. He remained short of breath with minimal activity. Objective - Vital Signs Vital signs: Vital Signs Temp 98.4 F 01/18/18 08:00 Pulse 86 01/18/18 10:14 Resp 18 01/18/18 10:14 BP 114/72 01/18/18 10:14 Pulse Ox 95 01/18/18 10:14 Intake & Output 01/17/18 01/18/18 01/18/18 18:59 06:59 18:59 Intake Total 660 Output Total 0 1025 Balance 660 -1025 Weight 85.3 kg Intake: Oral 660 Output: Urine 0 1025 Other: Voiding Method Urinal Urinal Urinal # Voids 3 1 # Bowel Movements 1 - Exam General appearance: Present: average body habitus, no acute distress - EENT Eyes: Present: EOMI, PERRLA ENT: Present: normal oropharynx Ears: bilateral: normal - Neck Neck: Present: normal ROM. Absent: lymphadenopathy Carotids: bilateral: upstroke normal Thyroid: bilateral: normal size - Respiratory Respiratory: bilateral: Diminished, crackles, negative: dullness, prolonged expiration - Cardiovascular Rhythm: regular Heart sounds: normal: S1, S2 Abnormal Heart Sounds: Absent: systolic murmur, diastolic murmur, rub - Peripheral edema foot Peripheral Edema: bilateral: None - Gastrointestinal General gastrointestinal: Present: normal bowel sounds, soft. Absent: distended , tenderness - Integumentary Integumentary: Absent: palor, cyanotic - Neurologic Neurologic: Present: CNII-XII intact - Musculoskeletal Musculoskeletal: Present: gait normal, strength equal bilaterally - Psychiatric Psychiatric: Present: A&O x's 3, appropriate affect - Labs CBC & Chem 7: 01/18/18 05:48 01/18/18 05:48 Labs: Abnormal Lab Results - Last 24 Hours (Table) 01/17/18 01/17/18 01/18/18 Range/Units 12:09 16:30 05:48 RBC 2.86 L (4.30-5.90) m/uL Hgb 7.6 L (13.0-17.5) gm/dL Hct 26.5 L (39.0-53.0) % MCHC 28.6 L (31.0-37.0) g/dL RDW 15.6 H (11.5-15.5) % Plt Count 146 L (150-450) k/uL Potassium 3.4 L (3.5-5.1) mmol/L BUN 25 H (9-20) mg/dL Creatinine 3.30 H (0.66-1.25) mg/dL Calcium 6.1 L* (8.4-10.2) mg/dL 01/18/18 Range/Units 05:48 RBC (4.30-5.90) m/uL Hgb (13.0-17.5) gm/dL Hct (39.0-53.0) % MCHC (31.0-37.0) g/dL RDW (11.5-15.5) % Plt Count (150-450) k/uL Potassium (3.5-5.1) mmol/L BUN 21 H (9-20) mg/dL Creatinine 3.10 H (0.66-1.25) mg/dL Calcium 8.3 L (8.4-10.2) mg/dL Assessment and Plan Plan: 1. Acute hypoxic respiratory and failure requiring BiPAP secondary to pleural effusion and pulmonary edema secondary to acute on chronic diastolic heart failure. Patient has been on BiPAP and transitioned to high flow O2 by nasal cannula. Maintain pulse ox of 90%. Increase Lasix 80 mg IV every 8 hours. Patient is undergoing hemodialysis. 2. Acute kidney injury and top of chronic kidney disease stage II secondary to acute tubular necrosis requiring hemodialysis, presenting with fluid overload. Lasix 80 mg IV every 8 hours. Consult with nephrology. Patient underwent hemodialysis yesterday. 3. Non-ST elevated myocardial infarction. Cardiology consult requested. Aspirin 81 mg, Lopressor, statin started. Patient main require heart catheterization once respiratory status is improved. 4. Anemia of chronic kidney disease, stable. Ferrlecit 3 doses. 5. Hypocalcemia due to acute kidney injury. 6. Hyperphosphatemia. Continue the patient on PhosLo. 7. Hypertension and hypertensive cardiovascular disease, currently hypotensive. Norvasc, losartan on hold. Continue IV Lasix 8. Thrombocytopenia, currently stable. Monitor. 9. Hyperlipidemia. Stable at this time. 10. Chronic tobacco use and dependence. Patient quit smoking about 2 weeks ago. 11. DVT prophylaxis. Heparin subcu. 12. GI prophylaxis. Pepcid. 13. Patient is a full code. Discharge plan: Return home Impression and plan of care have been directed as dictated by the signing physician. Anita Amaya nurse practitioner acting as scribe for signing physician.
--- NOTE | 2018-01-18 15:47 | P.PN ---
Subjective Patient is seen in follow-up for acute kidney injury, currently hemodialysis dependent. Patient was discharged from the hospital on 01/14/2018 after undergoing a kidney biopsy. He had dialysis on Sunday as well. On Sunday he became acutely short of breath and came to the hospital. He was noted to be in fluid overload and has undergone hemodialysis the last 4 days in a row. He is noted to have ejection fraction of 40-45% with moderate to severe mitral regurgitation. He is also maintained on IV Lasix. Oral intake is good. Hemodynamically stable. Dyspnea is improved. He underwent a repeat kidney biopsy this morning. Vital signs are stable. General: The patient appeared well nourished and normally developed. HEENT: Head exam is unremarkable. Neck is without jugular venous distension. LUNGS: Lungs are clear to auscultation and percussion. Breath sounds decreased. HEART: Rate and Rhythm are regular. First and second heart sounds normal. No murmurs, rubs or gallops. ABDOMEN: Abdominal exam reveals normal bowel sounds. Non-tender and non- distended. No evidence of peritonitis. EXTREMITITES: No clubbing, cyanosis, or edema. Objective - Vital Signs Vital signs: Vital Signs Temp 97.2 F L 01/18/18 11:00 Pulse 76 01/18/18 13:08 Resp 18 01/18/18 11:15 BP 106/63 01/18/18 11:15 Pulse Ox 96 01/18/18 11:15 Intake & Output 01/17/18 01/18/18 01/18/18 18:59 06:59 18:59 Intake Total 660 250 Output Total 0 1025 Balance 660 -1025 250 Weight 85.3 kg Intake: Intake, IV Titration 150 Amount Desmopressin Inj 26 mcg 50 In Sodium Chloride 0.9% 50 ml @ 200 mls/hr IVPB ONCE ONE Rx#:[id number] Sodium Ferric Gluconat- 100 Sucrose 125 mg In Sodium Chloride 0.9% 100 ml @ 100 mls/hr IVPB DAILY [facility] Rx#:[id number] Oral 660 100 Output: Urine 0 1025 Other: Voiding Method Urinal Urinal Urinal # Voids 3 1 # Bowel Movements 1 - Labs CBC & Chem 7: 01/18/18 05:48 01/18/18 05:48 Labs: Abnormal Lab Results - Last 24 Hours (Table) 01/17/18 01/18/18 01/18/18 Range/Units 16:30 05:48 05:48 RBC 2.86 L (4.30-5.90) m/uL Hgb 7.6 L (13.0-17.5) gm/dL Hct 26.5 L (39.0-53.0) % MCHC 28.6 L (31.0-37.0) g/dL RDW 15.6 H (11.5-15.5) % Potassium 3.4 L (3.5-5.1) mmol/L BUN 25 H 21 H (9-20) mg/dL Creatinine 3.30 H 3.10 H (0.66-1.25) mg/dL Calcium 6.1 L* 8.3 L (8.4-10.2) mg/dL Assessment and Plan Plan: Assessment: 1. Acute kidney injury currently hemodialysis dependent. 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 He underwent a repeat kidney biopsy this morning. 2. Volume overload. Improving with ultrafiltration. 3. Hyperphosphatemia secondary to acute kidney injury maintained on PhosLo. Phosphorus level 3.6. 4. Anemia. Iron deficiency noted. 5. Systolic CHF with ejection fraction of 40-45% with mild to moderate mitral regurgitation. Plan: Currently seen while undergoing hemodialysis. Next treatment on Sunday. Maintain Aranesp. Ferrlecit 125 mg IV daily for 3 days. Second dose today. He did receive DDAVP prior to kidney biopsy this morning. Repeat hemoglobin this evening.
[2018-01-18 16:22] LABS: HCT 24.2 % (39.0-53.0); HGB 7.2 gm/dL (13.0-17.5); Hypochromasia Marked; MCH 27.2 pg (25.0-35.0); MCHC 29.7 g/dL (31.0-37.0); MCV 91.7 fL (80.0-100.0); Mean Platelet Volume 7.8; Platelet Count 146 k/uL (150-450); RBC 2.64 m/uL (4.30-5.90); RDW 15.7 % (11.5-15.5); WBC 7.1 k/uL (3.8-10.6)
--- NOTE | 2018-01-18 16:38 | P.PN ---
Subjective Progress Note Date: 01/18/18 This 62-year-old gentleman is admitted with renal failure, shortness of breath and elevated troponins. Patient seemed to be relatively stable. Has not had any chest pain. Discussed with him about the need for cardiac catheterization. We also made him aware of the risks associated with cardiac cath. He is being treated for CHF and fluid overload. Nephrology also was requested for their input regarding cardiac cath on the risks. Meanwhile we'll continue current medical therapy. Once patient is stable and cleared by nephrology, we' ll consider cardiac catheterization Objective - Vital Signs Vital signs: Vital Signs Temp 97.2 F L 01/18/18 11:00 Pulse 76 01/18/18 13:08 Resp 18 01/18/18 11:15 BP 106/63 01/18/18 11:15 Pulse Ox 96 01/18/18 11:15 Intake & Output 01/17/18 01/18/18 01/18/18 18:59 06:59 18:59 Intake Total 660 250 Output Total 0 1025 Balance 660 -1025 250 Weight 85.3 kg Intake: Intake, IV Titration 150 Amount Desmopressin Inj 26 mcg 50 In Sodium Chloride 0.9% 50 ml @ 200 mls/hr IVPB ONCE ONE Rx#:[id number] Sodium Ferric Gluconat- 100 Sucrose 125 mg In Sodium Chloride 0.9% 100 ml @ 100 mls/hr IVPB DAILY [facility] Rx#:[id number] Oral 660 100 Output: Urine 0 1025 Other: Voiding Method Urinal Urinal Urinal # Voids 3 1 # Bowel Movements 1 - Exam GENERAL EXAM: Patient is alert and oriented and doesn't appear to be in any acute distress HEENT: Normocephalic. Normal reaction of pupils, equal size, normal range of extraocular motion. No erythema or exudates in the throat. NECK: No masses, no nuchal rigidity. CHEST: No chest wall deformity. LUNGS: Diminished breath sounds HEART: S1 and S2 normal with no audible mumurs or gallops. Regular rhythm, femorals equal on both sides.. ABDOMEN: No hepatosplenomegaly, normal bowel sounds, no guarding or rigidity. SKIN: No rashes CENTRAL NERVOUS SYSTEM: No focal deficits. EXTREMITIES: Mild edema - Labs CBC & Chem 7: 01/18/18 15:53 01/18/18 05:48 Labs: Abnormal Lab Results - Last 24 Hours (Table) 01/17/18 01/18/18 01/18/18 Range/Units 16:30 05:48 05:48 RBC 2.86 L (4.30-5.90) m/uL Hgb 7.6 L (13.0-17.5) gm/dL Hct 26.5 L (39.0-53.0) % MCHC 28.6 L (31.0-37.0) g/dL RDW 15.6 H (11.5-15.5) % Plt Count (150-450) k/uL Potassium 3.4 L (3.5-5.1) mmol/L BUN 25 H 21 H (9-20) mg/dL Creatinine 3.30 H 3.10 H (0.66-1.25) mg/dL Calcium 6.1 L* 8.3 L (8.4-10.2) mg/dL 01/18/18 Range/Units 15:53 RBC 2.64 L (4.30-5.90) m/uL Hgb 7.2 L (13.0-17.5) gm/dL Hct 24.2 L (39.0-53.0) % MCHC 29.7 L (31.0-37.0) g/dL RDW 15.7 H (11.5-15.5) % Plt Count 146 L (150-450) k/uL Potassium (3.5-5.1) mmol/L BUN (9-20) mg/dL Creatinine (0.66-1.25) mg/dL Calcium (8.4-10.2) mg/dL Assessment and Plan (1) Acute renal failure Current Visit: Yes Status: Acute Code(s): N17.9 - ACUTE KIDNEY FAILURE, UNSPECIFIED SNOMED Code(s): 00893471 (2) Congestive heart failure Current Visit: Yes Status: Acute Code(s): I50.9 - HEART FAILURE, UNSPECIFIED SNOMED Code(s): 76980265 (3) Elevated troponin I level Current Visit: Yes Status: Acute Code(s): R74.8 - ABNORMAL LEVELS OF OTHER SERUM ENZYMES SNOMED Code(s): 429917453 Plan: Continue current medical therapy. When cleared by nephrology, we'll consider cardiac catheterization
[2018-01-18 16:59] LABS: Calcium 7.7 mg/dL (8.4-10.2); Magnesium 1.8 mg/dL (1.6-2.3)
[2018-01-19] MEDS: FUROSEMIDE 10 MG/ML 10 ML VIAL IV SCH ×4 (00:06→22:10)
[2018-01-19 07:17] LABS: HCT 23.6 % (39.0-53.0); HGB 7.1 gm/dL (13.0-17.5); Hypochromasia Marked; MCH 27.6 pg (25.0-35.0); MCV 92.2 fL (80.0-100.0); Mean Platelet Volume 8.3; Platelet Count 143 k/uL (150-450); RBC 2.56 m/uL (4.30-5.90); RDW 15.7 % (11.5-15.5); WBC 7.6 k/uL (3.8-10.6)
[2018-01-19 07:20] LABS: Calcium 8.1 mg/dL (8.4-10.2); Phosphorus 3.5 mg/dL (2.5-4.5); Potassium 3.7 mmol/L (3.5-5.1)
[2018-01-19] MEDS: CALCIUM ACETATE 667 MG CAP PO SCH ×3 (07:49→17:34)
[2018-01-19] MEDS: ATORVASTATIN 40 MG TAB PO SCH (07:49)
[2018-01-19] MEDS: METOPROLOL TARTRATE 12.5 MG TAB PO SCH ×2 (07:49→22:10)
[2018-01-19] MEDS: TAMSULOSIN 0.4 MG CAP.ER.24H PO SCH (07:49)
[2018-01-19] MEDS: BRIMONIDINE TARTRATE 0.2% DROPS 5 ML BTL RIGHT EYE SCH (07:50)
[2018-01-19] MEDS: ALBUTEROL NEBULIZED 2.5 MG/3 ML INHALATION PRN ×2 (08:24→21:00)
--- NOTE | 2018-01-19 08:26 | P.PN ---
Subjective Progress Note Date: 01/19/18 Principal diagnosis: This is a 62-year-old male with acute kidney injury, started on dialysis. He has been biopsied twice the first one was not very helpful as it was from medical. Complaints of shortness of breath and easy fatigability. Appetite is fair. No nausea vomiting but continues to have fair itching for the last 3 months requiring Benadryl and also having trouble sleeping because of this. No dizziness no fever chills continues to make some amount of urine. Objective - Vital Signs Vital signs: Vital Signs Temp 98.3 F 01/19/18 04:00 Pulse 81 01/19/18 04:00 Resp 22 01/19/18 04:00 BP 132/73 01/19/18 04:00 Pulse Ox 91 L 01/19/18 04:00 Intake & Output 01/18/18 01/19/18 01/19/18 18:59 06:59 18:59 Intake Total 730 400 Balance 730 400 Weight 84 kg Intake: Intake, IV Titration 150 Amount Desmopressin Inj 26 mcg 50 In Sodium Chloride 0.9% 50 ml @ 200 mls/hr IVPB ONCE ONE Rx#:[id number] Sodium Ferric Gluconat- 100 Sucrose 125 mg In Sodium Chloride 0.9% 100 ml @ 100 mls/hr IVPB [facility]ILY [facility] Rx#:[id number] Oral 580 400 Other: Voiding Method Urinal Urinal On exam he is awake alert oriented HEENT exam no JVP neck is supple no facial asymmetry Lungs are clear to auscultation and percussion except some basal fine crackles were heard more on the left than on the right. Heart sounds are unremarkable no murmur rub gallop Abdomen soft nontender Extremity exam was minimal edema Neurologically awake alert oriented - Labs CBC & Chem 7: 01/19/18 06:32 01/19/18 06:32 Labs: Abnormal Lab Results - Last 24 Hours (Table) 01/18/18 01/18/18 01/19/18 Range/Units 13:20 15:53 06:32 RBC 2.64 L 2.56 L (4.30-5.90) m/uL Hgb 7.2 L 7.1 L (13.0-17.5) gm/dL Hct 24.2 L 23.6 L (39.0-53.0) % MCHC 29.7 L 30.0 L (31.0-37.0) g/dL RDW 15.7 H 15.7 H (11.5-15.5) % Plt Count 146 L 143 L (150-450) k/uL BUN (9-20) mg/dL Creatinine (0.66-1.25) mg/dL Calcium 7.7 L (8.4-10.2) mg/dL 01/19/18 Range/Units 06:32 RBC (4.30-5.90) m/uL Hgb (13.0-17.5) gm/dL Hct (39.0-53.0) % MCHC (31.0-37.0) g/dL RDW (11.5-15.5) % Plt Count (150-450) k/uL BUN 21 H (9-20) mg/dL Creatinine 3.02 H (0.66-1.25) mg/dL Calcium 8.1 L (8.4-10.2) mg/dL Assessment and Plan Assessment: Impression. 1. Acute kidney injury with glomerulonephritis. Kidney biopsy report pending first kidney biopsy was dialyzed therefore a second biopsy was done yesterday 2. No post biopsy complication. 3. On hemodialysis Sunday. 4. Minimal bilateral fine crackles in bases. Possible congestive heart failure. 6. Severe anemia hemoglobin 7.1 down from 7.6 yesterday 5. Cardiomyopathy ejection fraction of 40-45%. 7. Iron deficiency with saturation of 17% dated 01/16/2018 Recommendation. 1. Maintain hemodialysis Sunday. 2. Complete ferric gluconate as ordered 3. Maintain blood pressure 120-140 for now. 4. Pending biopsy results from the kidney biopsy #2.
[2018-01-19] MEDS: SODIUM FERRIC GLUCONAT-SUCROSE 125 MG in SODIUM CHLORIDE 0.9% 100 ML IVPB SCH (09:45)
[2018-01-19] MEDS ORDERED: ERGOCALCIFEROL 50,000 UNIT CAP PO SCH (12:00)
--- NOTE | 2018-01-19 12:16 | P.PN ---
Subjective Progress Note Date: 01/19/18 Principal diagnosis: Acute kidney injury requiring dialysis Patient continued to be hemodynamic a stable no major events reported by nursing staff patient is urinating without difficulty tolerating dialysis without any complication catheter seems to be stable on the right upper chest patient at baseline mental status alert and oriented 4 denying chest pain, shortness breath, nausea, vomiting, dumping, dizziness, lightheadedness or dysuria. He shouldn't feels at least 75% improvement since admission Objective - Vital Signs Vital signs: Vital Signs Temp 98.3 F 01/19/18 04:00 Pulse 96 01/19/18 08:38 Resp 22 01/19/18 04:00 BP 132/73 01/19/18 04:00 Pulse Ox 91 L 01/19/18 04:00 Intake & Output 01/18/18 01/19/18 01/19/18 18:59 06:59 18:59 Intake Total 730 400 360 Balance 730 400 360 Weight 84 kg Intake: Intake, IV Titration 150 Amount Desmopressin Inj 26 mcg 50 In Sodium Chloride 0.9% 50 ml @ 200 mls/hr IVPB ONCE ONE Rx#:[id number] Sodium Ferric Gluconat- 100 Sucrose 125 mg In Sodium Chloride 0.9% 100 ml @ 100 mls/hr IVPB DAILY [facility] Rx#:[id number] Oral 580 400 360 Other: Voiding Method Urinal Urinal - Exam Gen.: in stated age, no acute distress Heart: Normal S1-S2 Lungs: Clear to auscultation bilaterally Abdomen: Soft, no tenderness, positive bowel sounds in all 4 quadrant no guarding or rebound Skin: No new rash Psych: Alert and oriented 3 Neuro: No focal deficit Lower extremity positive for trace edema - Labs CBC & Chem 7: 01/19/18 06:32 01/19/18 06:32 Labs: Abnormal Lab Results - Last 24 Hours (Table) 01/18/18 01/18/18 01/19/18 Range/Units 13:20 15:53 06:32 RBC 2.64 L 2.56 L (4.30-5.90) m/uL Hgb 7.2 L 7.1 L (13.0-17.5) gm/dL Hct 24.2 L 23.6 L (39.0-53.0) % MCHC 29.7 L 30.0 L (31.0-37.0) g/dL RDW 15.7 H 15.7 H (11.5-15.5) % Plt Count 146 L 143 L (150-450) k/uL BUN (9-20) mg/dL Creatinine (0.66-1.25) mg/dL Calcium 7.7 L (8.4-10.2) mg/dL 01/19/18 Range/Units 06:32 RBC (4.30-5.90) m/uL Hgb (13.0-17.5) gm/dL Hct (39.0-53.0) % MCHC (31.0-37.0) g/dL RDW (11.5-15.5) % Plt Count (150-450) k/uL BUN 21 H (9-20) mg/dL Creatinine 3.02 H (0.66-1.25) mg/dL Calcium 8.1 L (8.4-10.2) mg/dL Assessment and Plan Assessment: 1. Acute on chronic kidney disease requiring dialysis. 2. Status post CT-guided renal biopsy. 3. Acute diastolic heart failure. 4. Pleural effusion. 5. Recent elevation of troponin. 6. Congestive heart failure with ejection fraction 45%. 7. Anemia of chronic disease. I had long discussion with patient and his son-in-law who was at the bedside that he would like to continue dialysis and follow-up with nephrology recommendation kidney function seems to be improving patient is urinating fine electrolytes are balanced and we will consider discharging based on clinical progress hemoglobin has been stable I would like to continue monitoring avoid transfusion at this point. Patient is concerned about need for cardiac catheterization and I recommend against The catheterization at this point to avoid any contrast infusion. Patient is agreeable to current treatment plan with continue cardioprotective medication and optimize his medical condition
[2018-01-19] MEDS ORDERED: diphenhydrAMINE 25 MG CAP PO PRN (12:40)
--- NOTE | 2018-01-19 15:38 | P.PN ---
Subjective Progress Note Date: 01/19/18 This 62-year-old gentleman is admitted with renal failure, shortness of breath and elevated troponins. Patient seemed to be relatively stable. Has not had any chest pain. Discussed with him about the need for cardiac catheterization. We also made him aware of the risks associated with cardiac cath. He is being treated for CHF and fluid overload. Nephrology also was requested for their input regarding cardiac cath on the risks. Meanwhile we'll continue current medical therapy. Once patient is stable and cleared by nephrology, we' ll consider cardiac catheterization. 01/19/2018: This patient seemed to be feeling better. Less short of breath. No complaints of any chest pain. Patient doesn't want to have any cardiac catheterization unless he has symptoms. We are awaiting further input from nephrology. Continue current management. Objective - Vital Signs Vital signs: Vital Signs Temp 99.3 F 01/19/18 12:00 Pulse 86 01/19/18 12:00 Resp 18 01/19/18 12:00 BP 113/57 01/19/18 12:00 Pulse Ox 94 L 01/19/18 12:00 Intake & Output 01/18/18 01/19/18 01/19/18 18:59 06:59 18:59 Intake Total 730 400 840 Balance 730 400 840 Weight 84 kg Intake: Intake, IV Titration 150 Amount Desmopressin Inj 26 mcg 50 In Sodium Chloride 0.9% 50 ml @ 200 mls/hr IVPB ONCE ONE Rx#:[id number] Sodium Ferric Gluconat- 100 Sucrose 125 mg In Sodium Chloride 0.9% 100 ml @ 100 mls/hr IVPB DAILY [facility] Rx#:[id number] Oral 580 400 840 Other: Voiding Method Urinal Urinal Urinal - Exam GENERAL EXAM: Patient is alert and oriented and doesn't appear to be in any acute distress HEENT: Normocephalic. Normal reaction of pupils, equal size, normal range of extraocular motion. No erythema or exudates in the throat. NECK: No masses, no nuchal rigidity. CHEST: No chest wall deformity. LUNGS: Diminished breath sounds HEART: S1 and S2 normal with no audible mumurs or gallops. Regular rhythm, femorals equal on both sides.. ABDOMEN: No hepatosplenomegaly, normal bowel sounds, no guarding or rigidity. SKIN: No rashes CENTRAL NERVOUS SYSTEM: No focal deficits. EXTREMITIES: Mild edema - Labs CBC & Chem 7: 01/19/18 06:32 01/19/18 06:32 Labs: Abnormal Lab Results - Last 24 Hours (Table) 01/18/18 01/18/18 01/19/18 Range/Units 13:20 15:53 06:32 RBC 2.64 L 2.56 L (4.30-5.90) m/uL Hgb 7.2 L 7.1 L (13.0-17.5) gm/dL Hct 24.2 L 23.6 L (39.0-53.0) % MCHC 29.7 L 30.0 L (31.0-37.0) g/dL RDW 15.7 H 15.7 H (11.5-15.5) % Plt Count 146 L 143 L (150-450) k/uL BUN (9-20) mg/dL Creatinine (0.66-1.25) mg/dL Calcium 7.7 L (8.4-10.2) mg/dL 01/19/18 Range/Units 06:32 RBC (4.30-5.90) m/uL Hgb (13.0-17.5) gm/dL Hct (39.0-53.0) % MCHC (31.0-37.0) g/dL RDW (11.5-15.5) % Plt Count (150-450) k/uL BUN 21 H (9-20) mg/dL Creatinine 3.02 H (0.66-1.25) mg/dL Calcium 8.1 L (8.4-10.2) mg/dL Assessment and Plan (1) Acute renal failure Current Visit: Yes Status: Acute Code(s): N17.9 - ACUTE KIDNEY FAILURE, UNSPECIFIED SNOMED Code(s): 59412687 (2) Congestive heart failure Current Visit: Yes Status: Acute Code(s): I50.9 - HEART FAILURE, UNSPECIFIED SNOMED Code(s): 83474192 (3) Elevated troponin I level Current Visit: Yes Status: Acute Code(s): R74.8 - ABNORMAL LEVELS OF OTHER SERUM ENZYMES SNOMED Code(s): 109016637 Plan: Patient is clinically stable without any angina. His shortness of breath is improving. Patient is not oriented to have cardiac catheterization. We'll wait for the final input from deputy chief executive.
[2018-01-19] MEDS ORDERED: DARBEPOETIN ALFA 40 MCG/0.4 ML SYRINGE SQ SCH (18:00)
[2018-01-19] MEDS ORDERED: ACETAMINOPHEN TAB 325 MG TAB PO PRN (22:52)
[2018-01-20] MEDS: CALCIUM ACETATE 667 MG CAP PO SCH ×3 (06:19→17:19)
[2018-01-20 08:16] LABS: HCT 25.6 % (39.0-53.0); HGB 7.4 gm/dL (13.0-17.5); Hypochromasia Marked; MCH 26.7 pg (25.0-35.0); MCV 92.1 fL (80.0-100.0); Mean Platelet Volume 8.4; Platelet Count 152 k/uL (150-450); RBC 2.77 m/uL (4.30-5.90); RDW 15.7 % (11.5-15.5); WBC 8.2 k/uL (3.8-10.6)
[2018-01-20 08:27] LABS: Calcium 8.1 mg/dL (8.4-10.2)
[2018-01-20] MEDS: FUROSEMIDE 10 MG/ML 10 ML VIAL IV SCH ×3 (09:01→23:05)
[2018-01-20] MEDS: ATORVASTATIN 40 MG TAB PO SCH (09:02)
[2018-01-20] MEDS: METOPROLOL TARTRATE 12.5 MG TAB PO SCH ×2 (09:02→20:23)
[2018-01-20] MEDS: SODIUM FERRIC GLUCONAT-SUCROSE 125 MG in SODIUM CHLORIDE 0.9% 100 ML IVPB SCH (09:02)
[2018-01-20] MEDS: TAMSULOSIN 0.4 MG CAP.ER.24H PO SCH (09:02)
[2018-01-20] MEDS: BRIMONIDINE TARTRATE 0.2% DROPS 5 ML BTL RIGHT EYE SCH (09:02)
--- NOTE | 2018-01-20 11:08 | P.PN ---
Subjective Progress Note Date: 01/20/18 Principal diagnosis: Acute kidney injury requiring dialysis Patient continued to be hemodynamically stable. According to the nursing staff patient's reported to have fever of 1011 yesterday was provided with Tylenol and has been afebrile since that time which is greater than 16 hours. Patient is denying cough, chest pain, shortness breath, dizziness, lightheadedness or dysuria. Patient continued to urinate clear urine without difficulty Objective - Vital Signs Vital signs: Vital Signs Temp 98.3 F 01/20/18 04:00 Pulse 79 01/20/18 04:00 Resp 16 01/20/18 04:00 BP 153/72 01/20/18 04:00 Pulse Ox 96 01/20/18 04:00 Intake & Output 01/19/18 01/20/18 01/20/18 18:59 06:59 18:59 Intake Total 840 360 Output Total 1100 525 Balance -260 -525 360 Weight 84.7 kg Intake: Oral 840 360 Output: Urine 1100 525 Other: Voiding Method Urinal Urinal # Voids 1 1 - Exam Gen.: in stated age, no acute distress Heart: Normal S1-S2 Lungs: Clear to auscultation bilaterally Abdomen: Soft, no tenderness, positive bowel sounds in all 4 quadrant no guarding or rebound Skin: No new rash Psych: Alert and oriented 3 Neuro: No focal deficit Lower extremity positive for trace edema - Labs CBC & Chem 7: 01/20/18 07:34 01/20/18 07:34 Labs: Abnormal Lab Results - Last 24 Hours (Table) 01/20/18 01/20/18 Range/Units 07:34 07:34 RBC 2.77 L (4.30-5.90) m/uL Hgb 7.4 L (13.0-17.5) gm/dL Hct 25.6 L (39.0-53.0) % MCHC 29.0 L (31.0-37.0) g/dL RDW 15.7 H (11.5-15.5) % BUN 40 H (9-20) mg/dL Creatinine 4.63 H (0.66-1.25) mg/dL Calcium 8.1 L (8.4-10.2) mg/dL Assessment and Plan Assessment: 1. Acute on chronic kidney disease requiring dialysis. 2. Status post CT-guided renal biopsy. 3. Acute diastolic heart failure. 4. Pleural effusion. 5. Recent elevation of troponin. 6. Congestive heart failure with ejection fraction 45%. 7. Anemia of chronic disease. Plan discussed with patient at length including the following #1 with continue hemodialysis per nephrology recommendation and we will like to continue monitoring his urine output plan for dialysis outpatient to be determined by bridge leverman and patient is agreeable to the current treatment plan. #2 avoid blood transfusion as patient could be strong candidate for kidney transplant down the road and that was discussed with the patient in the presence of the nursing staff. #3 avoid cardiac catheterization at this point as 2-D echo revealed mildly reduced ejection fraction with dynamic. Optimize his medical management with cardioprotective medication to avoid nephrotoxic medication. Consideration for cardiac catheterization can be done outpatient once we finalize the kidney function and plan for dialysis in the future. #4 increase activities and consider discharging patients in the morning to be followed outpatient's for kidney biopsy result and close follow-up with his primary care physician outpatient
[2018-01-20] MEDS: ALBUTEROL NEBULIZED 2.5 MG/3 ML INHALATION PRN ×2 (11:52→16:10)
--- NOTE | 2018-01-20 12:20 | P.PN ---
Subjective Principal diagnosis: This is a 62-year-old male with acute kidney injury, started on dialysis. He has been biopsied twice the first one was not very helpful as it had only 3 glomeruli with severe glomerulosclerosis and chronic tubular interstitial injury suspicious of arterial or nephrosclerosis. To obtain a better biopsy specimen a second biopsy has been performed, results are pending. He has urine output of 16 and 25 mL yesterday. Complaints of shortness of breath and easy fatigability. Appetite is fair. No nausea vomiting but continues to have fair itching for the last 3 months requiring Benadryl and also having trouble sleeping because of this. Objective - Vital Signs Vital signs: Vital Signs Temp 98.5 F 01/20/18 08:00 Pulse 80 01/20/18 12:01 Resp 16 01/20/18 08:00 BP 148/61 01/20/18 08:00 Pulse Ox 95 01/20/18 08:00 Intake & Output 01/19/18 01/20/18 01/20/18 18:59 06:59 18:59 Intake Total 840 360 Output Total 1100 525 Balance -260 -525 360 Weight 84.7 kg Intake: Oral 840 360 Output: Urine 1100 525 Other: Voiding Method Urinal Urinal Urinal # Voids 1 1 On examination he is awake alert oriented comfortable HEENT exam no JVP neck is supple no facial asymmetry Lungs are clear to auscultation percussion good air entry bilaterally Heart sounds are unremarkable for murmur rub gallop Abdomen soft nontender Extremity exam was trace edema No asterixis noted Neurologically awake alert oriented. - Labs CBC & Chem 7: 01/20/18 07:34 01/20/18 07:34 Labs: Abnormal Lab Results - Last 24 Hours (Table) 01/20/18 01/20/18 Range/Units 07:34 07:34 RBC 2.77 L (4.30-5.90) m/uL Hgb 7.4 L (13.0-17.5) gm/dL Hct 25.6 L (39.0-53.0) % MCHC 29.0 L (31.0-37.0) g/dL RDW 15.7 H (11.5-15.5) % BUN 40 H (9-20) mg/dL Creatinine 4.63 H (0.66-1.25) mg/dL Calcium 8.1 L (8.4-10.2) mg/dL Assessment and Plan Assessment: Impression. 1. Acute kidney injury, initiated on hemodialysis with a permacath. Last dialysis was Sunday. He has significant proteinuria with a protein to creatinine ratio of about 6 g based on urine protein to creatinine ratio. Possible glomerulonephritis. Kidney biopsy reporteed only 3 glomeruli accurately diagnose is not possible therefore a second kidney biopsy was performed and the results are pending. He has fair amount of urine output therefore there is some chance of recovery 2. No post biopsy complication. 3. On hemodialysis Sunday. 4. Minimal bilateral fine crackles in bases. Possible congestive heart failure. Improved 6. Severe anemia hemoglobin, hemoglobin is 7.4 5. Cardiomyopathy ejection fraction of 40-45%. 7. Iron deficiency with saturation of 17% dated 01/16/2018 Recommendation. 1. Maintain hemodialysis Sunday. 2. Complete ferric gluconate as ordered 3. Maintain blood pressure 120-140 for now. 4. Pending biopsy results from the kidney biopsy #2. 5. Patient is been accepted into the [facility] on dialysis unit.
[2018-01-21] MEDS: CALCIUM ACETATE 667 MG CAP PO SCH ×2 (06:21→12:09)
[2018-01-21 06:25] VITALS: RESP 18
[2018-01-21] MEDS: ALBUTEROL NEBULIZED 2.5 MG/3 ML INHALATION PRN ×2 (07:08→13:18)
[2018-01-21 07:28] LABS: HCT 25.4 % (39.0-53.0); HGB 7.3 gm/dL (13.0-17.5); Hypochromasia Marked; MCH 26.4 pg (25.0-35.0); MCHC 28.9 g/dL (31.0-37.0); MCV 91.4 fL (80.0-100.0); Mean Platelet Volume 8.4; Platelet Count 141 k/uL (150-450); RBC 2.78 m/uL (4.30-5.90); RDW 15.7 % (11.5-15.5); WBC 8.2 k/uL (3.8-10.6)
[2018-01-21 07:49] LABS: Calcium 8.4 mg/dL (8.4-10.2); Phosphorus 4.2 mg/dL (2.5-4.5)
[2018-01-21] MEDS: BRIMONIDINE TARTRATE 0.2% DROPS 5 ML BTL RIGHT EYE SCH (08:03)
[2018-01-21] MEDS: FUROSEMIDE 10 MG/ML 10 ML VIAL IV SCH (08:03)
[2018-01-21] MEDS: METOPROLOL TARTRATE 12.5 MG TAB PO SCH (08:04)
[2018-01-21] MEDS: ATORVASTATIN 40 MG TAB PO SCH (08:04)
[2018-01-21] MEDS: TAMSULOSIN 0.4 MG CAP.ER.24H PO SCH (08:04)
--- NOTE | 2018-01-21 09:04 | P.PN ---
Subjective Patient is seen in follow-up for acute kidney injury, currently hemodialysis dependent. Patient presented with dyspnea and was noted to be in fluid overload , which is improved postdialysis. He is noted to have ejection fraction of 40- 45% with moderate to severe mitral regurgitation. He is also maintained on IV Lasix. Oral intake is good. Hemodynamically stable. Dyspnea is improved. He underwent a repeat kidney biopsy on Sunday morning for which the results are pending. Vital signs are stable. General: The patient appeared well nourished and normally developed. HEENT: Head exam is unremarkable. Neck is without jugular venous distension. LUNGS: Lungs are clear to auscultation and percussion. Breath sounds decreased. HEART: Rate and Rhythm are regular. First and second heart sounds normal. No murmurs, rubs or gallops. ABDOMEN: Abdominal exam reveals normal bowel sounds. Non-tender and non- distended. No evidence of peritonitis. EXTREMITITES: No clubbing, cyanosis, or edema. Objective - Vital Signs Vital signs: Vital Signs Temp 97.6 F 01/21/18 04:00 Pulse 80 01/21/18 07:19 Resp 18 01/21/18 04:00 BP 132/65 01/21/18 04:00 Pulse Ox 94 L 01/21/18 07:10 Intake & Output 01/20/18 01/21/18 01/21/18 18:59 06:59 18:59 Intake Total 600 360 Output Total 325 650 Balance 275 -650 360 Weight 86.6 kg Intake: Oral 600 360 Output: Urine 325 650 Other: Voiding Method Urinal Urinal # Voids 3 1 - Labs CBC & Chem 7: 01/21/18 07:01 01/21/18 07:01 Labs: Abnormal Lab Results - Last 24 Hours (Table) 01/21/18 01/21/18 Range/Units 07:01 07:01 RBC 2.78 L (4.30-5.90) m/uL Hgb 7.3 L (13.0-17.5) gm/dL Hct 25.4 L (39.0-53.0) % MCHC 28.9 L (31.0-37.0) g/dL RDW 15.7 H (11.5-15.5) % Plt Count 141 L (150-450) k/uL BUN 52 H (9-20) mg/dL Creatinine 5.60 H* (0.66-1.25) mg/dL Assessment and Plan Plan: Assessment: 1. Acute kidney injury currently hemodialysis dependent. 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 He underwent a repeat kidney biopsy on January 18. 2. Volume overload. Improved with ultrafiltration. 3. Hyperphosphatemia secondary to acute kidney injury maintained on PhosLo. Phosphorus level 3.6. 4. Anemia. Iron deficiency noted. Status post 3 doses of IV iron. 5. Systolic CHF with ejection fraction of 40-45% with mild to moderate mitral regurgitation. Plan: Hemodialysis today with goal 2-3 L ultrafiltration. Maintain Aranesp. Potential discharge after dialysis today. He can be discharged on Lasix 80 mg orally twice daily.
[2018-01-21 09:20] VITALS: TEMP 98.2
[2018-01-21 11:12] VITALS: BP 151/81
--- NOTE | 2018-01-21 12:01 | P.DS ---
Providers Date of admission: 01/15/18 06:53 Attending physician: Freddy Vasquez MD Consults: 01/15/18 06:49 Consult Physician Urgent Consulting Provider: Esther Warner Consult Reason/Comments: Renal failure/Dialysis Do you want consulting provider notified?: Already Contacted 01/15/18 15:12 Consult Physician Routine Consulting Provider: Aileen Ellison Consult Reason/Comments: elevated troponin Do you want consulting provider notified?: Yes Primary care physician: Estrellita Bains Hospital Course: This is a 62-year-old male patient of Dr. Bains with a past medical history of hypertension and hypertensive cardiovascular disease, hyperlipidemia, chronic kidney disease stage 2, chronic tobacco use and dependence, history of hematuria. He had recent hospitalization and was diagnosed with acute kidney injury and treated for hyperphosphatemia, hyperkalemia and volume overload. Patient had PermCath placed by Dr. Robledo and was started on hemodialysis. On Sunday he underwent a renal biopsy and was discharged home. Patient developed sudden onset of severe shortness of breath shortly after he arrived at home. Patient presented back to [facility] emergency center by EMS. Patient was found by EMS to be quite dyspneic and placed him on CPAP and gave him albuterol nebulizer treatment. BUN was 34 and creatinine 4.10, hemoglobin 7.7, potassium 4.4. Blood sugar was 206. Patient does not have history of diabetes. Troponin 0.631. ProBNP was 20,600. Chest x-ray revealed bibasilar atelectasis and/or infiltrates, interval worsening since prior study. Moderate left pleural effusion, interval increase in size since prior study. Probable small right pleural effusion. Mild pulmonary vascular congestion/pulmonary edema is suggested. Interval worsening since prior study. Patient was given 1 dose of IV Lasix 40 mg in the ER and admitted to the selective care unit. Consult in place with nephrology and repeat troponins of been ordered. Patient has been on BiPAP and switched over to high flow O2 this morning. Patient states he has improvement of his breathing but with any movement he becomes much worse. He is undergoing hemodialysis at this time. His bilateral arm edema is improved from yesterday. He is currently on O2 at 6 L high flow nasal cannula. His repeat troponin came back at 2.8 and cardiology consult has been requested. Patient was hypotensive this morning and Anusha Jaureguipressor losartan are on hold. Patient is continued on Lasix 40 mg IV every 8 hours. 01/16: Patient is undergoing hemodialysis today. BUN 32 and creatinine 3.8. Blood pressure is improved. Repeat troponin came back at 2.8-0 and 3.5-0. Patient has been seen by cardiology for non-ST elevated myocardial infarction. They have started him on aspirin, statin and beta keena of Lopressor 12.5 mg twice daily. Patient is currently pulse ox is 93% on 8 L nasal cannula high flow. 01/17: Patient had a drop in his pulse ox 88% while on 6 L nasal cannula. Patient was eating at the time. Initially O2 was increased to 8 L but he's pulse oxing well now. We'll try to taper down oxygen. He has been afebrile. Discussed with Dr. Phipps and Lasix will be increased to 80 mg every 8 hours. Patient has been started on Ferrlecit. Apparently renal biopsy was not a good specimen and patient may have to have this repeated but now patient has been started on aspirin which will delay biopsy. Patient may need heart catheterization once respiratory status is improved. Repeat limited echo reveals EF of 40-45% with mild inferior, anteroseptal and apical inferior LV wall motion hypokinetic. Severe mitral regurgitation, mild tricuspid regurgitation. Patient is to have repeat hemodialysis today. 01/18: Hemoglobin 7.6, BUN 21 and creatinine 3.10. Pulse ox is running 95% on 6 L high flow O2. Repeat renal biopsy by CAT scan done today and patient has had a small amount of bleeding at this site. This has resolved. His vital signs have been stable. We will plan to recheck hemoglobin at 4 PM and tomorrow morning. Patient is continued on Lasix 80 mg IV every 8 hours. Plan is for heart catheterization once respiratory status is stabilized. He remained short of breath with minimal activity. 01/21 2018: Hemoglobin still slightly low, arrangement for outpatient hemodialysis was made he has temporary dialysis catheter in the right subclavian , patient had a biopsy results still pending. Patient medications were adjusted blood pressure is lower with his home meds with finalize medication patient to be discharged today to start doing outpatient dialysis. Assessment and Plan Plan: 1. Acute hypoxic respiratory and failure requiring BiPAP secondary to pleural effusion and pulmonary edema secondary to acute on chronic diastolic heart failure. Patient has been on BiPAP and transitioned to high flow O2 by nasal cannula. Maintain pulse ox of 90%. Increase Lasix 80 mg IV every 8 hours. Patient is undergoing hemodialysis. 2. Acute kidney injury and top of chronic kidney disease stage II secondary to acute tubular necrosis requiring hemodialysis, presenting with fluid overload. Lasix 80 mg IV every 8 hours. Consult with nephrology. Patient underwent hemodialysis yesterday. 3. Non-ST elevated myocardial infarction. Cardiology consult requested. Aspirin 81 mg, Lopressor, statin started. Patient main require heart catheterization once respiratory status is improved. 4. Anemia of chronic kidney disease, stable. Ferrlecit 3 doses. 5. Hypocalcemia due to acute kidney injury. 6. Hyperphosphatemia. Continue the patient on PhosLo. 7. Hypertension and hypertensive cardiovascular disease, currently hypotensive. Norvasc, losartan on hold. Continue IV Lasix 8. Thrombocytopenia, currently stable. Monitor. 9. Hyperlipidemia. Stable at this time. 10. Chronic tobacco use and dependence. Patient quit smoking about 2 weeks ago. 11. DVT prophylaxis. Heparin subcu. 12. GI prophylaxis. Pepcid. 13. Patient is a full code. Patient Condition at Discharge: Serious Plan - Discharge Summary Discharge Rx Participant: No New Discharge Prescriptions: New Acetaminophen Tab [Tylenol] 650 mg PO Q4HR PRN tab PRN Reason: Fever And/ Or Pain Atorvastatin [Lipitor] 40 mg PO DAILY #30 tab Calcium Acetate [PhosLo] 667 mg PO TID-W/MEALS #90 cap Darbepoetin Gerry [Aranesp] 40 mcg SQ Q7D syringe diphenhydrAMINE [Benadryl] 25 mg PO QID PRN cap PRN Reason: Itching Ergocalciferol [Vitamin D2 (DRISDOL)] 50,000 unit PO Q7D #4 cap Famotidine [Pepcid] 10 mg PO DAILY PRN #30 tab PRN Reason: Heartburn Furosemide [Lasix] 80 mg PO BID@0900,1600 #60 tab Metoprolol Tartrate [Lopressor] 12.5 mg PO BID #60 tab Tamsulosin [Flomax] 0.4 mg PO HS #30 cap.er.24h Continue amLODIPine BESYLATE [Norvasc] 10 mg PO DAILY Brimonidine Tartrate [Alphagan P 0.2% Oph Soln] 1 drops RIGHT EYE DAILY ml Fluticasone Nasal [place] [Flonase Nasal [place]] 2 spr EA NOSTRIL DAILY Cetirizine HCl [Zyrtec] 10 mg PO DAILY Discontinued Metoprolol Tartrate [Lopressor] 50 mg PO BID Furosemide [Lasix] 40 mg PO DAILY Losartan Potassium 100 mg PO DAILY Discharge Medication List amLODIPine BESYLATE [Norvasc] 10 mg PO DAILY 01/02/18 [History] Brimonidine Tartrate [Alphagan P 0.2% Oph Soln] 1 drops RIGHT EYE DAILY ml [Rx] Cetirizine HCl [Zyrtec] 10 mg PO DAILY 01/15/18 [History] Fluticasone Nasal [place] [Flonase Nasal [place]] 2 spr EA NOSTRIL DAILY 01/15/18 [ History] Acetaminophen Tab [Tylenol] 650 mg PO Q4HR PRN tab 01/21/18 [Rx] Atorvastatin [Lipitor] 40 mg PO DAILY #30 tab 01/21/18 [Rx] Calcium Acetate [PhosLo] 667 mg PO TID-W/MEALS #90 cap 01/21/18 [Rx] Darbepoetin Gerry [Aranesp] 40 mcg SQ Q7D syringe 01/21/18 [Rx] Ergocalciferol [Vitamin D2 (DRISDOL)] 50,000 unit PO Q7D #4 cap 01/21/18 [Rx] Famotidine [Pepcid] 10 mg PO DAILY PRN #30 tab 01/21/18 [Rx] Furosemide [Lasix] 80 mg PO BID@0900,1600 #60 tab 01/21/18 [Rx] Metoprolol Tartrate [Lopressor] 12.5 mg PO BID #60 tab 01/21/18 [Rx] Tamsulosin [Flomax] 0.4 mg PO HS #30 cap.er.24h 01/21/18 [Rx] diphenhydrAMINE [Benadryl] 25 mg PO QID PRN cap 01/21/18 [Rx] Follow up Appointment(s)/Referral(s): Esther Warner MD [STAFF PHYSICIAN] - 1 Week (Please call to schedule appointment) Estrellita Bains MD [Primary Care Provider] - 01/25/18 12:30 pm (Sunday ) Patient Instructions/Handouts: Chronic Kidney Disease Diet (DC), Heart Healthy Diet (DC) Activity/Diet/Wound Care/Special Instructions: Diet teaching given to patient by boathouse keeper.
[2018-01-21 13:25] VITALS: PULSE 80
[2018-01-21] MEDS ORDERED: FUROSEMIDE 80 MG TAB PO SCH (16:00)
== END 2018-01-21 13:47 | disposition home or self-care (01) | DRG 280 ==
LOC: EC 04:07 → 6SEL 06:53
PROVIDERS: ADMIT Internal Medicine; ATTEND Internal Medicine
PROC: 5A1D70Z Performance of Urinary Filtration, Intermittent, Less than 6 Hours Per Day (ICD-10-PCS; principal; 2018-01-21)
DX: I13.2 Hypertensive heart and chronic kidney disease with heart failure and with stage 5 chronic kidney disease, or end stage renal disease (principal); I21.4 Non-ST elevation (NSTEMI) myocardial infarction; I50.43 Acute on chronic combined systolic (congestive) and diastolic (congestive) heart failure; N17.0 Acute kidney failure with tubular necrosis; J96.01 Acute respiratory failure with hypoxia; D63.1 Anemia in chronic kidney disease; D69.6 Thrombocytopenia, unspecified; E78.5 Hyperlipidemia, unspecified; E83.39 Other disorders of phosphorus metabolism; E83.51 Hypocalcemia; F17.200 Nicotine dependence, unspecified, uncomplicated; I08.1 Rheumatic disorders of both mitral and tricuspid valves; I42.9 Cardiomyopathy, unspecified; J44.9 Chronic obstructive pulmonary disease, unspecified; K21.9 Gastro-esophageal reflux disease without esophagitis; N05.9 Unspecified nephritic syndrome with unspecified morphologic changes; N26.9 Renal sclerosis, unspecified; D50.9 Iron deficiency anemia, unspecified; Z79.82 Long term (current) use of aspirin; Z79.899 Other long term (current) drug therapy; Z82.49 Family history of ischemic heart disease and other diseases of the circulatory system; Z82.5 Family history of asthma and other chronic lower respiratory diseases; Z87.11 Personal history of peptic ulcer disease; Z79.51 Long term (current) use of inhaled steroids; N42.9 Disorder of prostate, unspecified
CPT/HCPCS: 36415; 71045; 77012; 80048; 80053; 81001; 82310; 82550; 82553; 82728; 83036; 83540; 83550; 83735; 83880; 84100; 84484; 85025; 85027; 85049; 85610; 85730; 86850; 86900; 86901; 90935; 93005; 93308; 94640; 94660; 94760; 96374; 99285

== ENCOUNTER 2018-04-26 07:24 | Day surgery (SDC) | payer OTHER ==
[2018-04-23 15:07] VITALS: BMI 27.7
[~2018-04-26 07:24] MED LIST: ALPRAZolam 0.25 MG TAB PO PRN; ALPRAZolam 0.5 MG TAB PO PRN; ASPIRIN 325 MG TAB PO STA; ATORVASTATIN 80 MG TAB PO STA; NITROGLYCERIN SL TABS 0.4 MG TAB SUBLINGUAL PRN; SODIUM CHLORIDE 0.9% 1,000 ML in EMPTY BAG 1 BAG IV ONE
[2018-04-26] MEDS ORDERED: ASPIRIN 81 MG ONE (07:38)
[2018-04-26 07:53] LABS: Basophils % (A) 1 %; Eosinophils # (A) 0.4 k/uL (0-0.7); Eosinophils % (A) 8 %; HCT 28.5 % (39.0-53.0); HGB 9.3 gm/dL (13.0-17.5); Lymphocytes # (A) 1.4 k/uL (1.0-4.8); Lymphocytes % (A) 27 %; MCH 27.7 pg (25.0-35.0); MCHC 32.8 g/dL (31.0-37.0); MCV 84.7 fL (80.0-100.0); Mean Platelet Volume 9.5; Monocytes # (A) 0.4 k/uL (0-1.0); Monocytes % (A) 7 %; Neutrophils # (A) 2.9 k/uL (1.3-7.7); Neutrophils % (A) 55 %; Platelet Count 101 k/uL (150-450); RBC 3.36 m/uL (4.30-5.90); RDW 15.2 % (11.5-15.5); WBC 5.2 k/uL (3.8-10.6)
[2018-04-26] MEDS ORDERED: METOPROLOL TARTRATE 12.5 MG TAB PO STA (08:00)
[2018-04-26] MEDS ORDERED: amLODIPine 10 MG TAB PO STA (08:00)
[2018-04-26 08:16] LABS: Calcium 9.1 mg/dL (8.4-10.2); Potassium 4.7 mmol/L (3.5-5.1)
[2018-04-26] MEDS ORDERED: MIDAZOLAM 2 MG/2 ML VIAL ONE (08:19)
[2018-04-26] MEDS ORDERED: fentaNYL (PF) 50 MCG/ML 2 ML AMP ONE ×2 (08:19→09:28)
[2018-04-26] MEDS: BENZOCAINE SPRAY 1 CAN MUCOUS MEM ONE ×2 (08:24→08:32)
[2018-04-26] MEDS ORDERED: SODIUM CHLORIDE 0.9% 1,000 ML IV ONE (08:30)
[2018-04-26] MEDS ORDERED: fentaNYL (PF) 50 MCG/ML 2 ML AMP IVP ONE (08:32)
[2018-04-26] MEDS: MIDAZOLAM 2 MG/2 ML VIAL IVP ONE ×2 (08:32→08:51)
[2018-04-26] MEDS ORDERED: LIDOCAINE 1% INJ 10MG/ML (20 ML MDV) ONE (08:41)
[2018-04-26] MEDS ORDERED: fentaNYL (PF) 50 MCG/ML 2 ML AMP IV ONE (09:30)
[2018-04-26] MEDS ORDERED: LIDOCAINE 1% INJ 10MG/ML (20 ML MDV) SQ ONE (09:31)
--- NOTE | 2018-04-26 09:38 | ECHOT ---
TRANSESOPHAGEAL ECHOCARDIOGRAM INDICATION: Evaluation of mitral valve. PROCEDURE: After explaining the procedure to the patient, its risks and the complications, his blood pressure, heart rate, O2 saturation were monitored. The throat was sprayed with Cetacaine. He received 1 mg intravenous Versed, 25 mcg intravenous fentanyl. After achieving moderate conscious sedated state, the probe was introduced into the esophagus without difficulty. Images were obtained. Following that, the probe was removed. There was no immediate complication. FINDINGS: Left atrial size is mildly dilated. Left atrial appendage is normal. Left ventricular size and systolic function normal. Concentric left ventricular hypertrophy was noted. The aortic valve appears to be normal. Mitral valve is normal. Tricuspid valve is normal. Descending thoracic aorta appears to be normal. No pericardial effusion was noted. Contrast bubble study revealed no shunting across the interatrial septum. Doppler pulse wave and color Doppler obtained and revealed a mild to moderate mitral with mild tricuspid regurgitation. There was no shunting by color Doppler study. CONCLUSIONS: 1. Normal left ventricular size and systolic function. 2. Mildly dilated left atrium with normal appearance of left atrial appendage. 3. Normal appearance of the mitral valve with mild to moderate mitral regurgitation. 4. Mild tricuspid regurgitation. 5. Normal appearance of the descending thoracic aorta. 6. No shunting across the interatrial septum. MMODL / IJN: [id number] /
[2018-04-26] MEDS ORDERED: IOPAMIDOL-370 125ML BTL INJ ONE (09:58)
[2018-04-26 10:00] LABS: O2 Sat Blood Gas 72.8 %
[2018-04-26 10:00] LABS: O2 Sat Blood Gas 68.2 %
[2018-04-26 10:00] LABS: O2 Sat Blood Gas 93.9 %
[2018-04-26] MEDS ORDERED: FAMOTIDINE 20 MG TAB PO PRN (10:13)
[2018-04-26] MEDS ORDERED: ACETAMINOPHEN TAB 325 MG TAB PO PRN (10:13)
[2018-04-26] MEDS ORDERED: RX INFO: IV CONTRAST WAS GIVEN 1 EACH MISC MISCELLANE PRN (10:13)
[2018-04-26] MEDS: SODIUM CHLORIDE 0.9% 1,000 ML IV SCH (10:26)
--- NOTE | 2018-04-26 10:50 | CC ---
CARDIAC CATHETERIZATION REPORT Mr. Toscano is a 62-year-old male with a history of hypertension, hyperlipidemia, end- stage renal disease who has been complaining of progressive dyspnea on exertion. His transthoracic echocardiogram revealed moderate to severe mitral regurgitation. His transesophageal echocardiogram revealed mild to moderate mitral regurgitation with preserved systolic function. He had a stress test that showed reversible defect involving the apex. In view of that, recommendation was made regarding cardiac catheterization. The procedure as well as the risks and the complications were discussed with the patient who is in full understanding and agreement. PROCEDURE: Patient was brought to labor custodian in a fasting semi-sedated state after receiving fentanyl and Benadryl and achieving moderate conscious sedated state. Using Xylocaine anesthesia in the Seldinger technique, a a 6-Grenadian sheath was introduced in the right femoral artery and an 8-Grenadian sheath in the right femoral vein. Right heart catheterization was performed using [place] catheter. Multiple pressure and samples were obtained. Cardiac output by thermodilution was calculated. Following that, selective right and left coronary angiography was performed using 6-Grenadian 4 bend, right and left Vesta catheters. Multiple views of the coronary artery including hemiaxial views obtained. Right Vesta catheter was used to cross the aortic valve and left ventricular end-diastolic pressure was calculated. Following that, catheters and sheath were removed. Hemostasis was obtained with deployment of an Angio-Seal in the right femoral artery and compression of the right femoral vein. There was no immediate complication. FINDINGS: HEMODYNAMICS: Right atrial saturation 72%. Pulmonary artery saturation 68%. Femoral artery saturation 94%. Cardiac output by Leonard 7.8 L/minute and by thermodilution 7.9 L/minute. Pulmonary artery systolic pressure of 38 with a diastolic of 7 and a mean of 17 mmHg. Pulmonary capillary wedge pressure A-wave of 11, V-wave of 11 and a mean of 7 mmHg. Right ventricular systolic pressure of 34 with an end-diastolic of 3 mmHg. Right atrium A-wave of 7, V-wave of 4 with a mean of 3 mmHg. Left ventricular end-diastolic pressure of 12 to 14 mmHg. There was no gradient across the aortic valve. CORONARIES: LEFT MAIN: This is a large-sized vessel trifurcating in left circumflex, left anterior descending artery and ramus intermedius. Left main coronary artery has no evidence of high-grade stenosis. LEFT ANTERIOR DESCENDING ARTERY: This is a large-sized vessel reaching toward the apex with a wraparound apex segment. Proximally, it has a long lesion of stenosis up to 90%. The rest of the vessel has mild intimal disease without any evidence of high-grade stenosis. RAMUS INTERMEDIUS: This is a large-sized vessel reaching toward the apical lateral wall. The ramus intermedius has an 80% stenosis proximally. The rest of the vessel has no high-grade stenosis. RIGHT CORONARY ARTERY: This is a large dominant vessel bifurcating distally PDA and posterolateral segment and branches. The right coronary artery in the mid segment has a tubular lesion of up to 80%. The rest of the vessel has no high-grade stenosis. LEFT VENTRICULOGRAM: The left ventriculogram was not performed. CONCLUSIONS: 1. Severe triple-vessel coronary artery disease. 2. No evidence of pulmonary hypertension. RECOMMENDATION: In view of finding anatomy, I would obtain a surgical opinion. The patient can undergo multivessel coronary angioplasty and stenting versus coronary artery bypass grafting. Those findings and recommendation were discussed with the patient and his family and awaiting his decision. Further recommendation will be made. Duration of procedure is 28 minutes. MMODL / IJN: [id number] /
--- NOTE | 2018-04-26 11:58 | P.GSCN ---
<Ivonne Garcia - Last Filed: 04/26/18 11:44> History of Present Illness Consult date: 04/26/18 Reason for Consult: Severe triple vessel coronary artery disease, surgical revascularization recommendations. Requesting physician: Jorge Dunn History of present illness: This is an active 62-year-old male patient who follows with Dr. Bains on an outpatient basis. He has a previous medical history of recent non-STEMI in January 2018, hypertension, hyperlipidemia, end-stage renal disease currently receiving hemodialysis 3 times a week, previous tobacco dependence, COPD, GI bleed, and family history of coronary artery disease. He presented to Dr. Dunn's office with complaints of progressive shortness of breath with exertion, he has denied chest pain or pressure. He had a transthoracic echocardiogram completed in January 2018 which demonstrated moderate to severe mitral regurgitation and mild tricuspid regurgitation with an ejection fraction of 45%. Subsequently he had a stress test demonstrating reversible defect involving the apex. He was recommended to undergo heart catheterization and transesophageal echocardiogram which were completed this morning. Transesophageal echocardiogram demonstrated mild to moderate mitral regurgitation, mild tricuspid regurgitation with normal left ventricular function. Heart catheterization demonstrated left main coronary artery without evidence of high-grade stenosis, proximal LAD lesion of 90% stenosis, ramus stenosis of 80%, and mid RCA with a lesion of 80%. Due to these findings Dr. Mackay from cardiothoracic surgery was consulted regarding surgical revascularization recommendations. Review of Systems Review of systems was completed and was negative except as noted. - Cardiovascular Reports dyspnea on exertion - Respiratory Reports dyspnea Past Medical History Past Medical History: COPD, Dialysis, GERD/Reflux, GI Bleed, Hyperlipidemia, Hypertension, Osteoarthritis (OA), Prostate Disorder, Renal Disease Additional Past Medical History / Comment(s): Chronic lower extremity edema, decreased urinary stream lately, 1991 somach ulcer with hematemesis. Renal disease, Hemodialysis M-W-. Hospitaized in january for volume overload. History of Any Multi-Drug Resistant Organisms: None Reported Past Surgical History: No Surgical Hx Reported Additional Past Surgical History / Comment(s): EGD, PermCath & renal bx. Past Anesthesia/Blood Transfusion Reactions: No Reported Reaction Additional Past Anesthesia/Blood Transfusion Reaction / Comm: Pt received blood years ago with his stomach ulcer bleed-no reaction. Smoking Status: Former smoker - Past Family History Father Family Medical History: Asthma Additional Family Medical History / Comment(s): Father at the age of 64yrs. Mother Family Medical History: Myocardial Infarction (AR) Additional Family Medical History / Comment(s): Mother had a AR sometime prior to age 60yrs. She is 86yrs old. Brother(s) Family Medical History: No Reported History Sister(s) Family Medical History: No Reported History Son(s) Family Medical History: No Reported History Daughter(s) Family Medical History: No Reported History Medications and Allergies Home Medications Medication Instructions Recorded Confirmed Type amLODIPine BESYLATE [Norvasc] 10 mg PO DAILY 01/02/18 04/26/18 History Acetaminophen Tab [Tylenol] 650 mg PO Q4HR PRN tab 01/21/18 04/26/18 Rx Atorvastatin [Lipitor] 40 mg PO DAILY #30 tab 01/21/18 04/26/18 Rx Calcium Acetate [PhosLo] 667 mg PO TID-W/MEALS #90 cap 01/21/18 04/26/18 Rx Ergocalciferol [Vitamin D2 50,000 unit PO Q7D #4 cap 01/21/18 04/26/18 Rx (DRISDOL)] Famotidine [Pepcid] 10 mg PO DAILY PRN #30 tab 01/21/18 04/26/18 Rx Metoprolol Tartrate [Lopressor] 12.5 mg PO BID #60 tab 01/21/18 04/26/18 Rx Aspirin [Children's Aspirin] 81 mg PO DAILY 04/26/18 04/26/18 History Brimonidine Tartrate [Alphagan P 1 drops RIGHT EYE DAILY 04/26/18 04/26/18 History 0.2% Ophth Soln] Darbepoetin Gerry [Aranesp] 40 mcg IJ [id number] 04/26/18 04/26/18 History Fluticasone Nasal [place] [Flonase 2 spr EA NOSTRIL DAILY 04/26/18 04/26/18 History Nasal [place]] Furosemide [Lasix] 80 mg PO BID 04/26/18 04/26/18 History Allergies Allergy/AdvReac Type Severity Reaction Status Date / Time No Known Allergies Allergy Verified 04/26/18 07:36 Surgical - Exam Vital Signs Temp Pulse Resp BP Pulse Ox 98 F 62 18 156/70 100 04/26/18 07:50 04/26/18 07:50 04/26/18 07:50 04/26/18 07:50 04/26/18 07:50 - General well developed, well nourished, no distress, no pain - Eyes PERRL, normal ocular movement - ENT no hearing loss - Neck no masses, no bruits, trachea midline - Respiratory Lungs sounds clear bilaterally. Respirations even, nonlabored. Currently on room air with oxygen saturation 99%. - Cardiovascular S1, S2 present. Regular rate and rhythm, sinus rhythm on telemetry. Palpable peripheral pulses bilaterally. No edema present. No calf pain or tenderness noted. - Abdomen Abdomen: soft, non tender, bowel sounds - Genitourinary Deferred - Rectum Deferred - Integumentary no rash, no growths - Neurologic normal coordination, normal sensation - Psychiatric oriented to time, oriented to person, oriented to place, speech is normal, memory intact Results - Labs 04/26/18 07:45 04/26/18 07:45 Abnormal Lab Results - Last 24 Hours (Table) 04/26/18 04/26/18 Range/Units 07:45 07:45 RBC 3.36 L (4.30-5.90) m/uL Hgb 9.3 L (13.0-17.5) gm/dL Hct 28.5 L (39.0-53.0) % Plt Count 101 L (150-450) k/uL Sodium 133 L (137-145) mmol/L Chloride 92 L (98-107) mmol/L BUN 51 H (9-20) mg/dL Creatinine 6.96 H* (0.66-1.25) mg/dL Diabetes panel 04/26/18 Range/Units 07:45 Sodium 133 L (137-145) mmol/L Potassium 4.7 (3.5-5.1) mmol/L Chloride 92 L (98-107) mmol/L Carbon Dioxide 29 (22-30) mmol/L BUN 51 H (9-20) mg/dL Creatinine 6.96 H* (0.66-1.25) mg/dL Glucose 98 (74-99) mg/dL Calcium 9.1 (8.4-10.2) mg/dL Calcium panel 04/26/18 Range/Units 07:45 Calcium 9.1 (8.4-10.2) mg/dL Pituitary panel 04/26/18 Range/Units 07:45 Sodium 133 L (137-145) mmol/L Potassium 4.7 (3.5-5.1) mmol/L Chloride 92 L (98-107) mmol/L Carbon Dioxide 29 (22-30) mmol/L BUN 51 H (9-20) mg/dL Creatinine 6.96 H* (0.66-1.25) mg/dL Glucose 98 (74-99) mg/dL Calcium 9.1 (8.4-10.2) mg/dL Adrenal panel 04/26/18 Range/Units 07:45 Sodium 133 L (137-145) mmol/L Potassium 4.7 (3.5-5.1) mmol/L Chloride 92 L (98-107) mmol/L Carbon Dioxide 29 (22-30) mmol/L BUN 51 H (9-20) mg/dL Creatinine 6.96 H* (0.66-1.25) mg/dL Glucose 98 (74-99) mg/dL Calcium 9.1 (8.4-10.2) mg/dL - Imaging Additional studies: Cardiac catheterization films reviewed. Assessment and Plan (1) Hypertension Current Visit: Yes Status: Chronic Code(s): I10 - ESSENTIAL (PRIMARY) HYPERTENSION SNOMED Code(s): 15395169 (2) Hyperlipidemia Current Visit: Yes Status: Chronic Code(s): E78.5 - HYPERLIPIDEMIA, UNSPECIFIED SNOMED Code(s): 03296491 (3) Coronary artery disease Current Visit: Yes Status: Chronic Code(s): I25.10 - ATHSCL HEART DISEASE OF [place] CORONARY ARTERY W/O ANG PCTRS SNOMED Code(s): 22824366 (4) Tobacco dependence in remission Current Visit: No Status: Resolved Code(s): F17.201 - NICOTINE DEPENDENCE, UNSPECIFIED, IN REMISSION SNOMED Code(s): 119993251 (5) History of myocardial infarction Current Visit: No Status: Resolved Code(s): I25.2 - OLD MYOCARDIAL INFARCTION SNOMED Code(s): 662401767 (6) End stage renal disease on dialysis Current Visit: Yes Status: Chronic Code(s): N18.6 - END STAGE RENAL DISEASE ; Z99.2 - DEPENDENCE ON RENAL DIALYSIS SNOMED Code(s): 603236517 (7) COPD (chronic obstructive pulmonary disease) Current Visit: Yes Status: Chronic Code(s): J44.9 - CHRONIC OBSTRUCTIVE PULMONARY DISEASE, UNSPECIFIED SNOMED Code(s): 40076813 (8) Family history of heart disease Current Visit: Yes Status: Chronic Code(s): Z82.49 - FAMILY HX OF ISCHEM HEART DIS AND OTH DIS OF THE CIRC SYS SNOMED Code(s): 114165009 Plan: The patient was seen and examined in the extended stay unit. Chart/diagnostics including heart catheterization films were reviewed. Upon assessment the patient and his son indicated that they do not want surgery, they do want stenting. We would recommend continuing statin, beta keena therapy, initiating aspirin. The case was discussed between Dr. Dunn and Dr. Mackay. Dr. Mackay will see the patient this afternoon. More recommendations to follow. Thank you Dr. Dunn for this consult. Time with Patient: Greater than 30 <Sabino Mackay - Last Filed: 04/26/18 14:18> Surgical - Exam Vital Signs Temp Pulse Resp BP Pulse Ox 98 F 62 18 156/70 100 04/26/18 07:50 04/26/18 07:50 04/26/18 07:50 04/26/18 07:50 04/26/18 07:50 Results - Labs 04/26/18 07:45 04/26/18 07:45 Abnormal Lab Results - Last 24 Hours (Table) 04/26/18 04/26/18 Range/Units 07:45 07:45 RBC 3.36 L (4.30-5.90) m/uL Hgb 9.3 L (13.0-17.5) gm/dL Hct 28.5 L (39.0-53.0) % Plt Count 101 L (150-450) k/uL Sodium 133 L (137-145) mmol/L Chloride 92 L (98-107) mmol/L BUN 51 H (9-20) mg/dL Creatinine 6.96 H* (0.66-1.25) mg/dL Diabetes panel 04/26/18 Range/Units 07:45 Sodium 133 L (137-145) mmol/L Potassium 4.7 (3.5-5.1) mmol/L Chloride 92 L (98-107) mmol/L Carbon Dioxide 29 (22-30) mmol/L BUN 51 H (9-20) mg/dL Creatinine 6.96 H* (0.66-1.25) mg/dL Glucose 98 (74-99) mg/dL Calcium 9.1 (8.4-10.2) mg/dL Calcium panel 04/26/18 Range/Units 07:45 Calcium 9.1 (8.4-10.2) mg/dL Pituitary panel 04/26/18 Range/Units 07:45 Sodium 133 L (137-145) mmol/L Potassium 4.7 (3.5-5.1) mmol/L Chloride 92 L (98-107) mmol/L Carbon Dioxide 29 (22-30) mmol/L BUN 51 H (9-20) mg/dL Creatinine 6.96 H* (0.66-1.25) mg/dL Glucose 98 (74-99) mg/dL Calcium 9.1 (8.4-10.2) mg/dL Adrenal panel 04/26/18 Range/Units 07:45 Sodium 133 L (137-145) mmol/L Potassium 4.7 (3.5-5.1) mmol/L Chloride 92 L (98-107) mmol/L Carbon Dioxide 29 (22-30) mmol/L BUN 51 H (9-20) mg/dL Creatinine 6.96 H* (0.66-1.25) mg/dL Glucose 98 (74-99) mg/dL Calcium 9.1 (8.4-10.2) mg/dL Assessment and Plan Plan: The patient was seen and examined. I agree with the above assessment and plan. The patient is a 62-year-old male, recently diagnosed with end-stage renal disease on hemodialysis, who presented with worsening shortness of breath with activity. His stress test was abnormal. Cardiac catheterization reveals multivessel coronary artery disease. His transesophageal echocardiogram reveals mild to moderate mitral regurgitation. His films were personally reviewed. He does appear to have targets suitable for bypass. I did speak at length with the patient and his son today. He is quite adamant that he does not wish to pursue surgical intervention. He instead wishes to pursue percutaneous intervention. I did speak with Dr. Dunn who will plan on performing this intervention as an outpatient if the patient remains agreeable. Please call me with any questions or if the patient should change his mind.
[2018-04-26] MEDS: CALCIUM ACETATE 667 MG CAP PO SCH ×2 (14:55→18:10)
[2018-04-26] MEDS: METOPROLOL TARTRATE 12.5 MG TAB PO SCH (19:36)
[2018-04-27] MEDS: SODIUM CHLORIDE 0.9% 1,000 ML IV SCH
[2018-04-27] MEDS: CALCIUM ACETATE 667 MG CAP PO SCH (06:56)
[2018-04-27 07:02] LABS: Basophils % (A) 1 %; Eosinophils # (A) 0.3 k/uL (0-0.7); Eosinophils % (A) 6 %; HCT 24.9 % (39.0-53.0); HGB 7.9 gm/dL (13.0-17.5); Hypochromasia Slight; Lymphocytes # (A) 0.8 k/uL (1.0-4.8); Lymphocytes % (A) 17 %; MCH 27.9 pg (25.0-35.0); MCHC 31.9 g/dL (31.0-37.0); MCV 87.3 fL (80.0-100.0); Mean Platelet Volume 7.3; Monocytes # (A) 0.4 k/uL (0-1.0); Monocytes % (A) 7 %; Neutrophils # (A) 3.2 k/uL (1.3-7.7); Neutrophils % (A) 67 %; Platelet Count 100 k/uL (150-450); RBC 2.85 m/uL (4.30-5.90); RDW 15.5 % (11.5-15.5); WBC 4.8 k/uL (3.8-10.6)
[2018-04-27 07:08] LABS: Calcium 8.6 mg/dL (8.4-10.2); Potassium 5.1 mmol/L (3.5-5.1)
[2018-04-27] MEDS: METOPROLOL TARTRATE 12.5 MG TAB PO SCH (07:54)
--- NOTE | 2018-04-27 08:45 | PN ---
PROGRESS NOTE Mr. Toscano is a 62-year-old male with known history of hypertension, hyperlipidemia, end-stage renal disease, who presented with an abnormal myocardial perfusion imaging and symptoms of dyspnea, underwent coronary angiography and was found to have severe triple-vessel coronary disease with moderate mitral regurgitation by transesophageal echo. He is doing well this morning. He denies any chest pain. His breathing has been stable. He denies any dizziness or palpitation. He denies any nausea. He continues to be on amlodipine 10 mg daily, aspirin once a day, Lipitor 40 mg daily, Pepcid, metoprolol tartrate 12.5 mg twice a day. PHYSICAL EXAMINATION: Blood pressure 136/60 with a heart rate in the 60s. LUNGS: Clear. Heart is regular rate and rhythm S1, S2. No S3 with a holosystolic murmur in the apex. No diastolic murmur. No rub. ABDOMEN: Soft, nontender. Positive bowel sounds. No megaly. EXTREMITIES: No edema. Right radial pulse is intact. IMPRESSION: 1. Severe triple-vessel coronary disease. 2. Moderate mitral regurgitation. 3. Hypertension. 4. Hyperlipidemia. 5. End-stage renal disease, on hemodialysis. RECOMMENDATION: I have discussed with the patient at length the option. I have discussed with him the findings. He was seen by Dr. Mackay yesterday and the issue of surgical revascularization was discussed with him. The patient is adamant not to undergo coronary artery bypass grafting. In view of that, he will be discharged home today and be admitted electively to undergo multivessel coronary angioplasty and stenting. MMODL / IJN: [id number] /
[2018-04-27] MEDS ORDERED: ERGOCALCIFEROL 50,000 UNIT CAP PO SCH (09:00)
[2018-04-27] MEDS ORDERED: FLUTICASONE 50MCG/SPRAY NASAL 16GM EA NOSTRIL SCH (09:00)
[2018-04-27] MEDS ORDERED: ATORVASTATIN 40 MG TAB PO SCH (09:00)
[2018-04-27] MEDS ORDERED: amLODIPine 10 MG TAB PO SCH (09:00)
[2018-04-27] MEDS ORDERED: ASPIRIN 81 MG PO SCH (09:00)
[2018-04-27] MEDS ORDERED: BRIMONIDINE TARTRATE 0.2% DROPS 5 ML BTL RIGHT EYE SCH (09:00)
--- NOTE | 2018-04-27 09:34 | P.NPCON ---
History of Present Illness - Reason for Consult Consult date: 04/27/18 end stage renal disease - Chief Complaint ESRD on dialysis Sunday, admitte for heart catheterization - History of Present Illness This is a patient with ESRD on dialysis Sunday. He came in for elective cardiac cath. He had a heart catheterization done yesterday 2017. Patient is known with a recent kidney biopsy in January 2018, results not available. Patient was told that there was nothing much that could be done. He is curious about whether this been any recovery of renal function so can get off of dialysis. He is comfortable. He was dialyzed last night. Denies any fever chills cough shortness of breath does have some mild itching on and off. He is also known with history of acute PR in January 2018, known with moderate to severe mitral regurgitation ejection fraction of 45% on an echo in January 2018. Also has COPD hypertension because her disease former smoker. Yesterday on 04/22/2014 718 Transesophageal echocardiogram demonstrated mild to moderate mitral regurgitation, mild tricuspid regurgitation with normal left ventricular function. Heart catheterization demonstrated left main coronary artery without evidence of high-grade stenosis, proximal LAD lesion of 90% stenosis, ramus stenosis of 80%, and mid RCA with a lesion of 80%. Due to these findings Dr. Mackay from cardiothoracic surgery was consulted regarding surgical revascularization recommendations. Past Medical History Past Medical History: COPD, Dialysis, GERD/Reflux, GI Bleed, Hyperlipidemia, Hypertension, Osteoarthritis (OA), Prostate Disorder, Renal Disease Additional Past Medical History / Comment(s): Chronic lower extremity edema, decreased urinary stream lately, 1992 somach ulcer with hematemesis. Renal disease, Hemodialysis -W-. Hospitaized in january for volume overload. History of Any Multi-Drug Resistant Organisms: None Reported Past Surgical History: No Surgical Hx Reported, Heart Catheterization Additional Past Surgical History / Comment(s): EGD, PermCath & renal bx.heart cath/DAWNA 04-26-18 Past Anesthesia/Blood Transfusion Reactions: No Reported Reaction Additional Past Anesthesia/Blood Transfusion Reaction / Comment(s): Pt received blood years ago with his stomach ulcer bleed-no reaction. Past Psychological History: No Psychological Hx Reported Additional Psychological History / Comment(s): Pt resides with his spouse and 2 children. He is independent. He understands spoken Armenian fairly well but written Armenian is alittle difficult for him. He is fluent in Czech. Smoking Status: Former smoker Past Alcohol Use History: Unable to Obtain Additional Past Alcohol Use History / Comment(s): Pt started smoking in 1981 and states he quit smoking in January 2018. Past Drug Use History: None Reported - Past Family History Father Family Medical History: Asthma Additional Family Medical History / Comment(s): Father at the age of 64yrs. Mother Family Medical History: Myocardial Infarction (PR) Additional Family Medical History / Comment(s): Mother had a PR sometime prior to age 60yrs. She is 86yrs old. Brother(s) Family Medical History: No Reported History Sister(s) Family Medical History: No Reported History Son(s) Family Medical History: No Reported History Daughter(s) Family Medical History: No Reported History Medications and Allergies Home Medications Medication Instructions Recorded Confirmed Type amLODIPine BESYLATE [Norvasc] 10 mg PO DAILY 01/02/18 04/26/18 History Acetaminophen Tab [Tylenol] 650 mg PO Q4HR PRN tab 01/21/18 04/26/18 Rx Atorvastatin [Lipitor] 40 mg PO DAILY #30 tab 01/21/18 04/26/18 Rx Calcium Acetate [PhosLo] 667 mg PO TID-W/MEALS #90 cap 01/21/18 04/26/18 Rx Ergocalciferol [Vitamin D2 50,000 unit PO Q7D #4 cap 01/21/18 04/26/18 Rx (DRISDOL)] Famotidine [Pepcid] 10 mg PO DAILY PRN #30 tab 01/21/18 04/26/18 Rx Metoprolol Tartrate [Lopressor] 12.5 mg PO BID #60 tab 01/21/18 04/26/18 Rx Aspirin [Children's Aspirin] 81 mg PO DAILY 04/26/18 04/26/18 History Brimonidine Tartrate [Alphagan P 1 drops RIGHT EYE DAILY 04/26/18 04/26/18 History 0.2% Ophth Soln] Darbepoetin Gerry [Aranesp] 40 mcg IJ [id number] 04/26/18 04/26/18 History Fluticasone Nasal [place] [Flonase 2 spr EA NOSTRIL DAILY 04/26/18 04/26/18 History Nasal [place]] Furosemide [Lasix] 80 mg PO BID 04/26/18 04/26/18 History Allergies Allergy/AdvReac Type Severity Reaction Status Date / Time No Known Allergies Allergy Verified 04/26/18 07:36 Physical Exam Vitals: Vital Signs Temp Pulse Resp BP Pulse Ox 04/27/18 06:24 97.5 F L 60 17 136/68 98 04/27/18 03:55 63 17 04/27/18 03:52 97.6 F 63 17 131/65 98 04/27/18 00:00 60 17 04/26/18 23:00 97.2 F L 60 17 137/63 99 04/26/18 19:41 72 17 04/26/18 19:36 97.2 F L 72 17 167/74 99 04/26/18 15:34 59 L 16 146/66 97 04/26/18 13:20 59 L 18 158/59 98 04/26/18 12:20 61 18 137/65 99 04/26/18 11:50 62 18 135/64 99 04/26/18 11:20 56 L 18 131/61 99 04/26/18 11:05 56 L 18 124/60 99 04/26/18 10:50 56 L 18 119/59 99 04/26/18 10:35 59 L 18 130/63 99 04/26/18 10:20 55 L 18 130/63 99 Intake and Output 04/26/18 04/27/18 04/27/18 22:59 06:59 14:59 Intake Total 240 1375 Balance 240 1375 Intake: Intake, IV Titration 825 Amount Sodium Chloride 0.9% 1, 825 000 ml @ 75 mls/hr IV . [id number] Rx#:[id number] Oral 240 550 Other: # Voids 1 Weight 76.1 kg On examination is awake alert oriented comfortable. HEENT exam no JVP neck is supple no facial asymmetry Lungs are clear to auscultation percussion good air entry bilaterally Heart sounds are unremarkable for any murmur rub gallop Abdomen is soft nontender no masses felt Extremity exam reveals no edema Neurologically awake alert oriented comfortable. Results - Lab Results Most recent lab results Calcium 8.6 mg/dL (8.4-10.2) 04/27/18 05:49 04/27/18 05:49 04/27/18 05:49 Assessment and Plan Assessment: Impression 1. ESRD on dialysis with a permacath on the right, new ESRD started January 2018 after kidney biopsy. Results of this are not available. He was dialyzed yesterday. 2. Admitted for elective cardiac cath, performed yesterday 04/26/2018 showing Transesophageal echocardiogram demonstrated mild to moderate mitral regurgitation, mild tricuspid regurgitation with normal left ventricular function. Heart catheterization demonstrated left main coronary artery without evidence of high-grade stenosis, proximal LAD lesion of 90% stenosis, ramus stenosis of 80%, and mid RCA with a lesion of 80%. Due to these findings Dr. Mackay from cardiothoracic surgery was consulted regarding surgical revascularization recommendations. 3. History of kidney biopsy on 01/18/2018 results not available. 4. Hemoglobin is down to 7.9 from 9.3 yesterday. No obvious bleeding. Anemia of ESRD. Recommendation. 1. Maintain dialysis schedule. 2. Maintain outpatient medications. 3. Further assessment by cardiac surgery and cardiology is regarding intervention. Thank you for this consultation and will continue to follow with you. From a nephrological perspective he can be discharged
[2018-04-27 09:57] VITALS: BP 128/61; PULSE 64; RESP 18; TEMP 97.8
== END 2018-04-27 11:05 | disposition home or self-care (01) ==
LOC: CATHCVL 07:24 → 6SEL 09:58 → CATHCVL 04-27 11:05
PROVIDERS: ATTEND Internal Medicine Interventional Cardiology
DX: I25.10 Atherosclerotic heart disease of native coronary artery without angina pectoris (principal); I12.0 Hypertensive chronic kidney disease with stage 5 chronic kidney disease or end stage renal disease; N18.6 End stage renal disease; Z99.2 Dependence on renal dialysis; Z87.891 Personal history of nicotine dependence; I08.1 Rheumatic disorders of both mitral and tricuspid valves; D63.1 Anemia in chronic kidney disease; I51.7 Cardiomegaly; E78.2 Mixed hyperlipidemia; I25.2 Old myocardial infarction; E78.5 Hyperlipidemia, unspecified; Z82.49 Family history of ischemic heart disease and other diseases of the circulatory system; J44.9 Chronic obstructive pulmonary disease, unspecified; M19.90 Unspecified osteoarthritis, unspecified site; N42.9 Disorder of prostate, unspecified; K21.9 Gastro-esophageal reflux disease without esophagitis; Z79.82 Long term (current) use of aspirin; Z79.51 Long term (current) use of inhaled steroids; Z79.899 Other long term (current) drug therapy
CPT/HCPCS: 93312; 93320; 93325; 93460; 80048 ×2; 85018; 82810; 85025 ×2; C1760; C1894 ×2; C1769; J2250; J2001; J3010; Q9967; 90935

== ENCOUNTER 2018-09-03 13:18 | Emergency (ER) | payer OTHER ==
[2018-09-03 14:05] VITALS: BP 161/63; PULSE 67; RESP 18; TEMP 98.1
[2018-09-03 14:29] LABS: Appearance,Urine Clear (Clear); Bilirubin,Urine Negative (Negative); Blood,Urine Large (Negative); Color,Urine Yellow; Glucose,Urine (UA) Negative (Negative); Ketones,Urine Negative (Negative); Leukocyte Esterase,Urine Negative (Negative); Nitrite,Urine Negative (Negative); PH, Urine 7.5 (5.0-8.0); Protein,Urine 1+ (Negative); RBC,Urine >182 /hpf (0-5); Specific Gravity,Urine 1.006 (1.001-1.035); Sperm,Urine Occasional /hpf; Urobilinogen,Urine <2.0 mg/dL (<2.0)
--- NOTE | 2018-09-03 17:01 | ED ---
General Adult HPI - General Chief complaint: Urogenital Stated complaint: Blood in urine Time Seen by Provider: 09/03/18 15:35 Source: patient, family, RN notes reviewed, old records reviewed Mode of arrival: ambulatory Limitations: no limitations - History of Present Illness Initial comments: Patient is a 62-year-old male presented to the emergency room today with a chief complaint of noticing dark urine that started yesterday. Patient states that he noticed yesterday that he was having a darker appearance to his urine. 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 Patient denies any other complaints or symptoms. He does admit that he is a dialysis patient has been for the past 6 months. He does admit that he goes on Mondays, Wednesdays, Fridays. Patient denies any other complaints or symptoms. Patient denies any recent fever, chills , shortness of breath, chest pain, back pain, abdominal pain, nausea or vomiting , numbness or tingling, dysuria, headaches or visual changes, or any other complaints. - Related Data Home Medications Medication Instructions Recorded Confirmed amLODIPine BESYLATE [Norvasc] 10 mg PO DAILY 01/02/18 09/03/18 Aspirin [Children's Aspirin] 81 mg PO DAILY 04/26/18 09/03/18 Furosemide [Lasix] 80 mg PO BID 04/26/18 09/03/18 Calcium Acetate [PhosLo] 1,334 mg PO TID-W/MEALS 09/03/18 09/03/18 Calcium Acetate [PhosLo] 667 mg PO DIRECTED 09/03/18 09/03/18 Tamsulosin HCl [Flomax] 0.4 mg PO HS 09/03/18 09/03/18 Previous Rx's Medication Instructions Recorded Atorvastatin [Lipitor] 40 mg PO DAILY #30 tab 01/21/18 Metoprolol Tartrate [Lopressor] 12.5 mg PO BID #60 tab 01/21/18 Allergies Allergy/AdvReac Type Severity Reaction Status Date / Time No Known Allergies Allergy Verified 09/03/18 15:11 Review of Systems ROS Statement: Those systems with pertinent positive or pertinent negative responses have been documented in the HPI. ROS Other: All systems not noted in ROS Statement are negative. Past Medical History Past Medical History: COPD, Dialysis, GERD/Reflux, GI Bleed, Hyperlipidemia, Hypertension, Osteoarthritis (OA), Prostate Disorder, Renal Disease Additional Past Medical History / Comment(s): Chronic lower extremity edema, decreased urinary stream lately, 1991 somach ulcer with hematemesis. Renal disease, Hemodialysis M-W-F. Hospitaized in January for volume overload. History of Any Multi-Drug Resistant Organisms: None Reported Past Surgical History: No Surgical Hx Reported, Heart Catheterization, Heart Catheterization With Stent Additional Past Surgical History / Comment(s): EGD, PermCath & renal bx.heart cath/DAWNA 04-26-18, heart cath last week. Fistula placement. # stents placed Past Anesthesia/Blood Transfusion Reactions: No Reported Reaction Additional Past Anesthesia/Blood Transfusion Reaction / Comment(s): Pt received blood years ago with his stomach ulcer bleed-no reaction. Past Psychological History: No Psychological Hx Reported Smoking Status: Former smoker Past Alcohol Use History: Unable to Obtain Past Drug Use History: None Reported - Past Family History Father Family Medical History: Asthma Additional Family Medical History / Comment(s): Father at the age of 64yrs. Mother Family Medical History: Myocardial Infarction ([place]) Additional Family Medical History / Comment(s): Mother had a CA sometime prior to age 60yrs. She is 86yrs old. Brother(s) Family Medical History: No Reported History Sister(s) Family Medical History: No Reported History Son(s) Family Medical History: No Reported History Daughter(s) Family Medical History: No Reported History General Exam - General Exam Comments Initial Comments: General: The patient is awake and alert, in no distress, and does not appear acutely ill. Eye: There is normal conjunctiva bilaterally. No signs of icterus. Ears, nose, mouth and throat: There are moist mucous membranes and no oral lesions. Neck: The neck is supple, there is no tenderness or JVD. Cardiovascular: There is a regular rate and rhythm. No murmur, rub or gallop is appreciated. Respiratory: Lungs are clear to auscultation, respirations are non-labored, breath sounds are equal. No wheezes, stridor, rales, or rhonchi. Gastrointestinal: Soft on palpation nontender. Musculoskeletal: Normal ROM, no tenderness. Neurological: A&O x 3. CN II-XII intact, There are no obvious motor or sensory deficits. Coordination appears grossly intact. Speech is normal. Skin: Skin is warm and dry and no rashes or lesions are noted. Psychiatric: Cooperative, appropriate mood & affect, normal judgment. Limitations: no limitations Course Vital Signs 09/03/18 14:00 Temperature 98.1 F Pulse Rate 67 Respiratory 18 Rate Blood Pressure 161/63 O2 Sat by Pulse 98 Oximetry Medical Decision Making - Medical Decision Making Patient has been here in the emergency room waiting for blood work. There has been a high influx of patients in nursing staff has been unable to control patient's blood. Patient stating that he would like to follow-up and does have appointment with this coming . He is agreeable to stay to have blood work obtained so blood work will be available. Patient's urinalysis is available at this time and does show hematuria no sign of infection. Patient is advised to follow-up this family doctor tomorrow. He will be discharged prior to blood work returning. She is asymptomatic has no complaint other than seeing dark urine.Please use medication as discussed. Please follow-up with family doctor in the next 2 days of symptoms have not improved. Please return to emergency room if the symptoms increase or worsen or for any other concerns. Vitals are stable. His discussed with attending physician Dr. Garrido. - Lab Data Lab Results 09/03/18 Range/Units 14:14 Urine Color Yellow Urine Appearance Clear (Clear) Urine pH 7.5 (5.0-8.0) Ur Specific [place] 1.006 (1.001-1.035) Urine Protein 1+ H (Negative) Urine Glucose (UA) Negative (Negative) Urine Ketones Negative (Negative) Urine Blood Large H (Negative) Urine Nitrite Negative (Negative) Urine Bilirubin Negative (Negative) Urine Urobilinogen <2.0 (<2.0) mg/dL Ur Leukocyte Esterase Negative (Negative) Urine RBC >182 H (0-5) /hpf Urine WBC 1 (0-5) /hpf Urine Sperm Occasional H (None) /hpf Disposition Clinical Impression: Hematuria Disposition: HOME SELF-CARE Condition: Good Instructions: Hematuria (ED) Additional Instructions: Please follow-up family doctor tomorrow as discussed. Return here to the emergency room for any other concerns. Is patient prescribed a controlled substance at d/c from ED?: No Referrals: Estrellita Bains MD [Primary Care Provider] - 1-2 days Time of Disposition: 17:05
[2018-09-03 17:41] LABS: Basophils % (A) 1 %; Eosinophils # (A) 0.1 k/uL (0-0.7); Eosinophils % (A) 3 %; HCT 29.6 % (39.0-53.0); HGB 9.5 gm/dL (13.0-17.5); Lymphocytes # (A) 0.4 k/uL (1.0-4.8); Lymphocytes % (A) 9 %; MCH 28.7 pg (25.0-35.0); MCHC 32.2 g/dL (31.0-37.0); MCV 89.1 fL (80.0-100.0); Mean Platelet Volume 8.1; Monocytes # (A) 0.4 k/uL (0-1.0); Monocytes % (A) 9 %; Neutrophils # (A) 3.3 k/uL (1.3-7.7); Neutrophils % (A) 75 %; RBC 3.32 m/uL (4.30-5.90); RDW 14.2 % (11.5-15.5); WBC 4.4 k/uL (3.8-10.6)
[2018-09-03 17:43] LABS: Albumin 4.4 g/dL (3.5-5.0); Calcium 8.9 mg/dL (8.4-10.2); Potassium 4.7 mmol/L (3.5-5.1); Total Bilirubin 0.5 mg/dL (0.2-1.3); Total Protein 6.9 g/dL (6.3-8.2)
[2018-09-03 18:02] LABS: Platelet Count 96 k/uL (150-450)
== END 2018-09-03 17:37 | disposition home or self-care (01) ==
LOC: EC 13:18
DX: R31.9 Hematuria, unspecified (principal); I10 Essential (primary) hypertension; M19.90 Unspecified osteoarthritis, unspecified site; N28.9 Disorder of kidney and ureter, unspecified; N42.9 Disorder of prostate, unspecified; Z87.891 Personal history of nicotine dependence; Z79.82 Long term (current) use of aspirin; Z79.899 Other long term (current) drug therapy; Z99.2 Dependence on renal dialysis
CPT/HCPCS: 36415; 80053; 81001; 85025; 99284

== ENCOUNTER → 2018-09-05 | Outpatient (CLI) | payer OTHER ==
--- NOTE | 2018-09-05 10:09 | US ---
EXAMINATION TYPE: US kidneys/renal and bladder DATE OF EXAM: 09/05/2018 COMPARISON: US 01/02/2018, CT 01/18/2018 CLINICAL HISTORY: N28.1 Renal Cysts. EXAM MEASUREMENTS: Right Kidney: 8.6 x 4.5 x 4.2 cm Left Kidney: 9.5 x 4.6 x 4.2 cm Right Kidney: No hydronephrosis. Multiple cystic areas visualized, largest lower pole measuring 1.2 x 1.2 x 1.2 cm Left Kidney: No hydronephrosis. Multiple cystic areas visualized, largest measuring 2.0 x 2.1 x 2.2 c m Bladder: Not distended Bilateral Jets seen: No There is no evidence for hydronephrosis at this point in time. No nephrolithiasis is seen. IMPRESSION: The bilateral renal cysts appear simple and overall benign.
--- NOTE | 2018-09-05 10:35 | XR ---
EXAMINATION TYPE: XR chest 2V DATE OF EXAM: 09/05/2018 COMPARISON: 01/15/2018 HISTORY: Shortness of breath TECHNIQUE: Frontal and lateral views of the chest are obtained. FINDINGS: Scattered senescent parenchymal changes noted. Hyperinflation compatible with COPD. No evidence for infiltrate. No evidence for atelectasis. Heart size is stable. Mediastinal structures are stable and grossly unremarkable. No evidence for hilar prominence. Degenerative changes dorsal spine. IMPRESSION: 1. No evidence for acute pulmonary disease.
[2018-09-05 11:19] LABS: Albumin 3.8 g/dL (3.5-5.0); Bilirubin, Delta 0.3 mg/dL (0.0-0.2); Bilirubin,Unconjugated 0.3 mg/dL (0.0-1.1); Phosphorus 2.9 mg/dL (2.5-4.5); Potassium 4.2 mmol/L (3.5-5.1); Total Bilirubin 0.6 mg/dL (0.2-1.3); Total Protein 5.9 g/dL (6.3-8.2)
[2018-09-05 11:25] LABS: Basophils % (A) 1 %; Eosinophils # (A) 0.1 k/uL (0-0.7); Eosinophils % (A) 2 %; HCT 26.7 % (39.0-53.0); HGB 8.8 gm/dL (13.0-17.5); Lymphocytes # (A) 0.4 k/uL (1.0-4.8); Lymphocytes % (A) 14 %; MCH 29.9 pg (25.0-35.0); MCV 90.6 fL (80.0-100.0); Mean Platelet Volume 8.4; Monocytes # (A) 0.2 k/uL (0-1.0); Monocytes % (A) 7 %; Neutrophils # (A) 2.4 k/uL (1.3-7.7); Neutrophils % (A) 73 %; RBC 2.94 m/uL (4.30-5.90); RDW 14.5 % (11.5-15.5); WBC 3.3 k/uL (3.8-10.6)
[2018-09-05 11:26] LABS: Platelet Count 92 k/uL (150-450)
[2018-09-05 18:02] LABS: Hepatitis B Core IgM Non-Reactive (Non-Reactive); Hepatitis B Surface AB- Quant 463.9 mIU/mL; Hepatitis C IgG Antibody Non-Reactive (Non-Reactive)
[2018-09-05 18:40] LABS: EBV-VCA (IgG) >8.0 AI; HIV 1 AB Non-Reactive (Non-Reactive); HIV AB P24 Non-Reactive (Non-Reactive); HIV P24 AG Non-Reactive (Non-Reactive)
[2018-09-06 15:08] LABS: Hepatits C Virus RNA DETECTED (Not detected); Hepatits C Virus RNA, Quant <12 IU/mL (<12); LOG HCV IU/mL <1.08 (<1.08)
== END ==
LOC: RADUSWWP 09:20
PROVIDERS: ATTEND Surgery
DX: N28.1 Cyst of kidney, acquired (principal); R91.8 Other nonspecific abnormal finding of lung field; Z00.00 Encounter for general adult medical examination without abnormal findings; B25.9 Cytomegaloviral disease, unspecified; B27.90 Infectious mononucleosis, unspecified without complication; E83.39 Other disorders of phosphorus metabolism; E80.7 Disorder of bilirubin metabolism, unspecified; R79.9 Abnormal finding of blood chemistry, unspecified; R97.20 Elevated prostate specific antigen [PSA]; R74.8 Abnormal levels of other serum enzymes; R74.0 Nonspecific elevation of levels of transaminase and lactic acid dehydrogenase [LDH]; Z13.228 Encounter for screening for other metabolic disorders; Z01.83 Encounter for blood typing; Z11.59 Encounter for screening for other viral diseases; Z11.4 Encounter for screening for human immunodeficiency virus [HIV]; Z11.3 Encounter for screening for infections with a predominantly sexual mode of transmission; Z13.220 Encounter for screening for lipoid disorders; Z11.1 Encounter for screening for respiratory tuberculosis
CPT/HCPCS: 71046; 76770; 80053; 82248; 82465; 82977; 83615; 84100; 84153; 85025; 86644; 86663; 86664; 86665; 86704; 86705; 86706; 86780; 86803; 86900; 86901; 87340; 87390; 87522

== ENCOUNTER → 2018-09-25 | Outpatient (CLI) | payer OTHER ==
--- NOTE | 2018-09-25 08:47 | CT ---
EXAMINATION TYPE: CT urogram wo/w con DATE OF EXAM: 09/25/2018 COMPARISON: Ultrasound 09/05/2018 and renal biopsy 01/18/2018 HISTORY: 62-year-old male Hematuria, known renal disease with dialysis TECHNIQUE: Contiguous axial scanning of the abdomen and pelvis performed without and with IV Contrast , patient injected with 100 mL of Isovue 300. Delayed images through the kidneys and bladder were obt ained. Coronal/sagittal reconstructions performed. 3-D reconstructions generated on a dedicated [employer] workstation. CT DLP: 1734 mGycm Automated exposure control for dose reduction was used. FINDINGS: Heart normal size without pericardial effusion. Lung bases clear without pleural effusion. Small hiatal hernia. Small 8 mm gastrohepatic ligament lymph node probably reactive/post inflammatory. No other mesenteric or retroperitoneal lymphadenopathy. A couple subcentimeter hypodensities left hepatic dome too small for accurate CT characterization, li roz cysts. Otherwise, no focal liver lesion or biliary ductal dilatation. Portal venous system is pa tent. Gallbladder measures upper limits of normal. No abnormal wall thickening or surrounding inflammation. Adrenal glands and pancreas appear within normal limits. Spleen upper limits of normal in size at 13. 2 cm. The kidneys show no evidence for nephrolithiasis. Multiple subcentimeter hypodensities are present, p articularly in the right kidney, largest measures 1.3 cm on the right. Most of these are too small fo r accurate CT characterization and likely represent cysts. Multiple similar lesions are present in th e left kidney, likely representing cysts. The largest in the anterior lower pole measures 2.0 cm and is compatible with a cyst. No definite suspicious renal lesion. There is no excretion of contrast seen from either kidney. No renal collecting system or ureteral opa cification is seen. Suggestion of mild urothelial thickening along the renal pelves on both sides. No hyperenhancing soft tissue mass is seen. No dilated small bowel, free fluid, or free air. Normal appendix. Scattered moderate stool. No cindy lonic inflammatory change. Moderate atherosclerotic calcifications infrarenal abdominal aorta without aneurysm. Tiny fatty umbil ical hernia. Bladder is nondistended. Prostate gland enlargement. 5.0 cm wide. No abnormal fluid collection in the pelvis. Probable prominent external iliac chain lymph nodes measure up to 1.2 cm and are nonspecific . No other pelvic lymphadenopathy is seen. Bones: Bilateral L5 pars defects with grade 1 anterolisthesis at L5-S1. Multiple endplate Schmorl's n odes and variable degenerative disc disease throughout. IMPRESSION: 1. SUBOPTIMAL ASSESSMENT OF THE RENAL COLLECTING SYSTEM AND URETERAL UROTHELIUM THE KIDNEYS DID NO T EXCRETE DURING THE COURSE OF THE EXAM. HOWEVER, THERE IS SUGGESTION OF SOME MILD UROTHELIAL THICKEN ING OF THE COLLECTING SYSTEMS SUGGESTING INFLAMMATION. CLINICALLY CORRELATE. 2. NO NEPHROLITHIASIS OR HYDRONEPHROSIS. 3. NUMEROUS HYPODENSE LESIONS IN BOTH KIDNEYS, MANY OF WHICH ARE TOO SMALL FOR ACCURATE CT CHARACTERI ZATION, LIKELY REPRESENTING CYSTS. THE LARGEST LESIONS MEASURING UP TO 2 CM ARE COMPATIBLE WITH CYSTS . NO SUSPICIOUS RENAL MASS SEEN. 4. THE BLADDER IS COLLAPSED AND SUBOPTIMALLY ASSESSED. PROSTATOMEGALY AT 5.0 CM WIDE.
== END | disposition home or self-care (01) ==
LOC: RADCTMAIN 06:35
PROVIDERS: ATTEND Internal Medicine
DX: N28.9 Disorder of kidney and ureter, unspecified (principal); N32.89 Other specified disorders of bladder; N40.0 Benign prostatic hyperplasia without lower urinary tract symptoms; R31.9 Hematuria, unspecified
CPT/HCPCS: 74178; 74400; Q9967

== ENCOUNTER 2018-12-06 11:58 | Emergency (ER) | payer MEDICARE, OTHER ==
[2018-12-06 12:08] VITALS: TEMP 97.8
--- NOTE | 2018-12-06 12:59 | ED ---
General Adult HPI - General Chief complaint: Recheck/Abnormal Lab/Rx Stated complaint: Fever, poss flu Time Seen by Provider: 12/06/18 12:15 Source: patient, RN notes reviewed, old records reviewed Mode of arrival: ambulatory - History of Present Illness Initial comments: 62-year-old male patient with past medical history of COPD, ESRD on dialysis, hypertension, hyperlipidemia, latent TB currently being treated presents to ED with fever. Patient reports that at the end of his dialysis treatment he had a fever of approximately 101F. Patient was given Tylenol, currently afebrile. Patient denies any other complaints. Patient denies any coughing, chest pain, shortness of breath, abdominal pain, dysuria, wounds, areas of inflammation. Systemic: Pt denies fatigue, myalgia, fever/chills, rash. Pt denies weakness, night sweats, weight loss. Neuro: Pt denies headache, visual disturbances, syncope or pre-syncope. HEENT: Pt denies ocular discharge or irritation, otalgia, rhinorrhea, pharyngitis or notable lymphadenopathy. Cardiopulmonary: Pt denies chest pain, SOB, heart palpitations, dyspnea on exertion. Abdominal/GI: Pt denies abdominal pain, n/v/d. : Pt denies dysuria, burning w/ urination, frequency/urgency. Denies new onset urinary or bowel incontinence. MSK: Pt denies myalgia, loss of strength or function in extremities. Neuro: Pt denies new onset weakness, paresthesias. - Related Data Home Medications Medication Instructions Recorded Confirmed amLODIPine BESYLATE [Norvasc] 10 mg PO DAILY 01/02/18 12/06/18 Aspirin [Children's Aspirin] 81 mg PO DAILY 04/26/18 12/06/18 Furosemide [Lasix] 80 mg PO BID 04/26/18 12/06/18 Clopidogrel [Plavix] 75 mg PO DAILY 12/06/18 12/06/18 Isoniazid 300 mg PO DAILY 12/06/18 12/06/18 Pyridoxine HCl (Vitamin B6) 100 mg PO DAILY 12/06/18 12/06/18 [Vitamin B-6] Previous Rx's Medication Instructions Recorded Atorvastatin [Lipitor] 40 mg PO DAILY #30 tab 01/21/18 Metoprolol Tartrate [Lopressor] 12.5 mg PO BID #60 tab 01/21/18 Cephalexin [Keflex] 500 mg PO Q12HR 10 Days cap 12/06/18 Allergies Allergy/AdvReac Type Severity Reaction Status Date / Time No Known Allergies Allergy Verified 12/06/18 12:42 Review of Systems ROS Statement: Those systems with pertinent positive or pertinent negative responses have been documented in the HPI. ROS Other: All systems not noted in ROS Statement are negative. Past Medical History Past Medical History: COPD, Dialysis, GERD/Reflux, GI Bleed, Hyperlipidemia, Hypertension, Osteoarthritis (OA), Prostate Disorder, Renal Disease Additional Past Medical History / Comment(s): Chronic lower extremity edema, decreased urinary stream lately, 1991 somach ulcer with hematemesis. Renal disease, Hemodialysis --. Hospitaized in January for volume overload. History of Any Multi-Drug Resistant Organisms: None Reported Past Surgical History: No Surgical Hx Reported, Heart Catheterization, Heart Catheterization With Stent Additional Past Surgical History / Comment(s): EGD, PermCath & renal bx.heart cath/DAWNA 04-26-18, heart cath last week. Fistula placement. # stents placed Past Anesthesia/Blood Transfusion Reactions: No Reported Reaction Additional Past Anesthesia/Blood Transfusion Reaction / Comment(s): Pt received blood years ago with his stomach ulcer bleed-no reaction. Past Psychological History: No Psychological Hx Reported Smoking Status: Former smoker Past Alcohol Use History: Unable to Obtain Past Drug Use History: None Reported - Past Family History Father Family Medical History: Asthma Additional Family Medical History / Comment(s): Father at the age of 64yrs. Mother Family Medical History: Myocardial Infarction ([place]) Additional Family Medical History / Comment(s): Mother had a [place] sometime prior to age 60yrs. She is 86yrs old. Brother(s) Family Medical History: No Reported History Sister(s) Family Medical History: No Reported History Son(s) Family Medical History: No Reported History Daughter(s) Family Medical History: No Reported History General Exam - General Exam Comments Initial Comments: Constitutional: NAD, AOX3, Pt has pleasant affect. HEENT: NC/AT, trachea midline, neck supple, no lymphadenopathy. Posterior pharynx non erythematous, without exudates. External ears appear normal, without discharge. Mucous membranes moist. Eyes PERRLA, EOM intact. There is no scleral icterus. No pallor noted. Cardiopulmonary: RRR, no murmurs, rubs or gallops, no JVD noted. Lungs CTAB in anterior and posterior carrasco. No peripheral edema. Abdominal exam: Abdomen soft and non-distended. Abdomen non-tender to palpation in all 4 quadrants. Bowel sounds active in LLQ. No hepatosplenomegaly. No ecchymosis Neuro: CN II-XII grossly intact. No nuchal rigidity. MSK: No posterior calf tenderness bilaterally, homans sign negative bilaterally. Posterior tibialis and radial pulse +2 bilaterally. Sensation intact in upper and lower extremities. Full active ROM in upper and lower extremities, 5/5 stregnth. Course Vital Signs 12/06/18 12:05 Temperature 97.8 F Pulse Rate 89 Respiratory 20 Rate Blood Pressure 170/61 O2 Sat by Pulse 99 Oximetry Medical Decision Making - Medical Decision Making 62-year-old male patient with past medical history of COPD, ESRD on dialysis, hypertension, hyperlipidemia, latent TB currently being treated presents to ED with fever. Patient reports that at the end of his dialysis treatment he had a fever of approximately 101F. Patient was given Tylenol, currently afebrile. Patient denies any other complaints. Patient denies any coughing, chest pain, shortness of breath, abdominal pain, dysuria, wounds, areas of inflammation. Patient vital signs displayed mild hypertension. Physical exam did not display acute pathology. Laboratory investigations revealed nonpresent CBC, CMP. UA displayed hematuria, mild urinary tract infection. Influenza negative. Chest x-ray displayed no acute process. Patient having hematuria followed by urol ogist. Patient be placed on Keflex for urinary tract infection. Patient will follow up with primary care provider in 1-2 days. Patient returned if condition worsens in anyway. Patient to monitor blood pressure at home, take antihypertensives. Case discussed with Dr. Garrido. - Lab Data Result diagrams: 12/06/18 13:25 12/06/18 13:25 Lab Results 12/06/18 12/06/18 12/06/18 Range/Units 13:20 13:25 13:25 WBC 8.1 (3.8-10.6) k/uL RBC 4.56 (4.30-5.90) m/uL Hgb 13.0 (13.0-17.5) gm/dL Hct 40.8 (39.0-53.0) % MCV 89.3 (80.0-100.0) fL MCH 28.5 (25.0-35.0) pg MCHC 31.9 (31.0-37.0) g/dL RDW 17.4 H (11.5-15.5) % Plt Count 135 L (150-450) k/uL Neutrophils % 72 % Lymphocytes % 15 % Monocytes % 9 % Eosinophils % 3 % Basophils % 0 % Neutrophils # 5.8 (1.3-7.7) k/uL Lymphocytes # 1.2 (1.0-4.8) k/uL Monocytes # 0.7 (0-1.0) k/uL Eosinophils # 0.2 (0-0.7) k/uL Basophils # 0.0 (0-0.2) k/uL Anisocytosis Slight Sodium 135 L (137-145) mmol/L Potassium 4.2 (3.5-5.1) mmol/L Chloride 91 L (98-107) mmol/L Carbon Dioxide 34 H (22-30) mmol/L Anion Gap 10 mmol/L BUN 14 (9-20) mg/dL Creatinine 2.94 H (0.66-1.25) mg/dL Est GFR (CKD-EPI)AfAm 25 (>60 ml/min/1.73 sqM) Est GFR (CKD-EPI)NonAf 22 (>60 ml/min/1.73 sqM) Glucose 106 H (74-99) mg/dL Calcium 9.6 (8.4-10.2) mg/dL Total Bilirubin 0.8 (0.2-1.3) mg/dL AST 20 (17-59) U/L ALT 13 L (21-72) U/L Alkaline Phosphatase 123 (38-126) U/L Total Protein 7.0 (6.3-8.2) g/dL Albumin 4.5 (3.5-5.0) g/dL Urine Color Yellow Urine Appearance Clear (Clear) Urine pH 8.0 (5.0-8.0) Ur Specific [place] 1.009 (1.001-1.035) Urine Protein 2+ H (Negative) Urine Glucose (UA) Negative (Negative) Urine Ketones Negative (Negative) Urine Blood Large H (Negative) Urine Nitrite Negative (Negative) Urine Bilirubin Negative (Negative) Urine Urobilinogen <2.0 (<2.0) mg/dL Ur Leukocyte Esterase Large H (Negative) Urine RBC >182 H (0-5) /hpf Urine WBC 18 H (0-5) /hpf Ur Squamous Epith Cells 1 (0-4) /hpf Urine Mucus Rare H (None) /hpf Urine Sperm Occasional H (None) /hpf Influenza Type A RNA (Not Detectd) Influenza Type B (PCR) (Not Detectd) 12/06/18 Range/Units 13:25 WBC (3.8-10.6) k/uL RBC (4.30-5.90) m/uL Hgb (13.0-17.5) gm/dL Hct (39.0-53.0) % MCV (80.0-100.0) fL MCH (25.0-35.0) pg MCHC (31.0-37.0) g/dL RDW (11.5-15.5) % Plt Count (150-450) k/uL Neutrophils % % Lymphocytes % % Monocytes % % Eosinophils % % Basophils % % Neutrophils # (1.3-7.7) k/uL Lymphocytes # (1.0-4.8) k/uL Monocytes # (0-1.0) k/uL Eosinophils # (0-0.7) k/uL Basophils # (0-0.2) k/uL Anisocytosis Sodium (137-145) mmol/L Potassium (3.5-5.1) mmol/L Chloride (98-107) mmol/L Carbon Dioxide (22-30) mmol/L Anion Gap mmol/L BUN (9-20) mg/dL Creatinine (0.66-1.25) mg/dL Est GFR (CKD-EPI)AfAm (>60 ml/min/1.73 sqM) Est GFR (CKD-EPI)NonAf (>60 ml/min/1.73 sqM) Glucose (74-99) mg/dL Calcium (8.4-10.2) mg/dL Total Bilirubin (0.2-1.3) mg/dL AST (17-59) U/L ALT (21-72) U/L Alkaline Phosphatase (38-126) U/L Total Protein (6.3-8.2) g/dL Albumin (3.5-5.0) g/dL Urine Color Urine Appearance (Clear) Urine pH (5.0-8.0) Ur Specific [place] (1.001-1.035) Urine Protein (Negative) Urine Glucose (UA) (Negative) Urine Ketones (Negative) Urine Blood (Negative) Urine Nitrite (Negative) Urine Bilirubin (Negative) Urine Urobilinogen (<2.0) mg/dL Ur Leukocyte Esterase (Negative) Urine RBC (0-5) /hpf Urine WBC (0-5) /hpf Ur Squamous Epith Cells (0-4) /hpf Urine Mucus (None) /hpf Urine Sperm (None) /hpf Influenza Type A RNA Not Detected (Not Detectd) Influenza Type B (PCR) Not Detected (Not Detectd) Disposition Clinical Impression: UTI (urinary tract infection) Disposition: HOME SELF-CARE Condition: Stable Instructions (If sedation given, give patient instructions): Urinary Tract Infection in Men (ED) Additional Instructions: Patient to adhere to previously discussed treatment plan and will take medication(s) as directed. Patient to follow up with PCP in 1-2 days. Patient to return to ED if symptoms do not improve. Please take medications as directed. Return to ER condition worsens in any way. Please follow-up with primary care provider in 1-2 days. Prescriptions: Cephalexin [Keflex] 500 mg PO Q12HR 10 Days cap Is patient prescribed a controlled substance at d/c from ED?: No Referrals: Estrellita Bains MD [Primary Care Provider] - 1-2 days
--- NOTE | 2018-12-06 13:14 | XR ---
EXAMINATION TYPE: XR chest 2V DATE OF EXAM: 12/06/2018 COMPARISON: Prior chest x-ray 09/05/2018 HISTORY: Fever, abnormal chest x-ray TECHNIQUE: Frontal and lateral views of the chest are obtained. FINDINGS: Central venous catheter has been removed. Prominent lung volume could be indicative of unde rlying COPD. There is no focal air space opacity, pleural effusion, or pneumothorax seen. The cardia c silhouette size is within normal limits. The osseous structures are intact. IMPRESSION: No acute cardiopulmonary process.
[2018-12-06 13:46] LABS: Anisocytosis Slight; Basophils % (A) 0 %; Eosinophils # (A) 0.2 k/uL (0-0.7); Eosinophils % (A) 3 %; HCT 40.8 % (39.0-53.0); Lymphocytes # (A) 1.2 k/uL (1.0-4.8); Lymphocytes % (A) 15 %; MCH 28.5 pg (25.0-35.0); MCHC 31.9 g/dL (31.0-37.0); MCV 89.3 fL (80.0-100.0); Mean Platelet Volume 10.4; Monocytes # (A) 0.7 k/uL (0-1.0); Monocytes % (A) 9 %; Neutrophils # (A) 5.8 k/uL (1.3-7.7); Neutrophils % (A) 72 %; Platelet Count 135 k/uL (150-450); RBC 4.56 m/uL (4.30-5.90); RDW 17.4 % (11.5-15.5); WBC 8.1 k/uL (3.8-10.6)
[2018-12-06 13:58] LABS: Appearance,Urine Clear (Clear); Bilirubin,Urine Negative (Negative); Blood,Urine Large (Negative); Color,Urine Yellow; Glucose,Urine (UA) Negative (Negative); Ketones,Urine Negative (Negative); Leukocyte Esterase,Urine Large (Negative); Mucus,Urine Rare /hpf; Nitrite,Urine Negative (Negative); Protein,Urine 2+ (Negative); RBC,Urine >182 /hpf (0-5); Specific Gravity,Urine 1.009 (1.001-1.035); Sperm,Urine Occasional /hpf; Squamous Epithelial Cell,Urine 1 /hpf (0-4); Urobilinogen,Urine <2.0 mg/dL (<2.0)
[2018-12-06 14:15] LABS: Albumin 4.5 g/dL (3.5-5.0); Calcium 9.6 mg/dL (8.4-10.2); Potassium 4.2 mmol/L (3.5-5.1); Total Bilirubin 0.8 mg/dL (0.2-1.3)
[2018-12-06 15:32] VITALS: BP 168/81; PULSE 78; RESP 16
== END 2018-12-06 15:31 | disposition home or self-care (01) ==
LOC: EC 11:58
DX: N39.0 Urinary tract infection, site not specified (principal); R76.11 Nonspecific reaction to tuberculin skin test without active tuberculosis; I12.0 Hypertensive chronic kidney disease with stage 5 chronic kidney disease or end stage renal disease; N18.6 End stage renal disease; M19.90 Unspecified osteoarthritis, unspecified site; Z87.891 Personal history of nicotine dependence; Z79.02 Long term (current) use of antithrombotics/antiplatelets; Z79.82 Long term (current) use of aspirin; Z79.899 Other long term (current) drug therapy; Z95.5 Presence of coronary angioplasty implant and graft; Z99.2 Dependence on renal dialysis; Z82.49 Family history of ischemic heart disease and other diseases of the circulatory system
CPT/HCPCS: 36415; 71046; 80053; 81001; 85025; 87086; 87502; 99284

== ENCOUNTER 2019-04-01 23:01 | Observation (INO) | payer MEDICARE, BC ==
[2019-04-01] MEDS ORDERED: NITROGLYCERIN SL TABS 0.4 MG TAB SUBLINGUAL STA (23:24)
[2019-04-01] MEDS ORDERED: ASPIRIN 81 MG PO STA (23:24)
[2019-04-01] MEDS ORDERED: MORPHINE SULFATE 4 MG/ML SYRINGE IV STA (23:24)
--- NOTE | 2019-04-01 23:28 | ED ---
Chest Pain HPI - General Chief Complaint: Chest Pain Stated Complaint: Chest Pain Time Seen by Provider: 04/01/19 23:15 Source: patient, family Mode of arrival: ambulatory Limitations: no limitations - History of Present Illness MD Complaint: chest pain Onset/Timin -: hour(s) Onset: during rest Pain Location: left chest Pain Radiation: none Severity: moderate Quality: aching Consistency: constant Improves With: nothing Worsens With: nothing Treatments Prior to Arrival: nitroglycerin - Related Data Home Medications Medication Instructions Recorded Confirmed amLODIPine BESYLATE [Norvasc] 10 mg PO DAILY 01/02/18 04/01/19 Aspirin [Children's Aspirin] 81 mg PO DAILY 04/26/18 04/01/19 Furosemide [Lasix] 80 mg PO BID@0900,1600 04/26/18 04/01/19 Clopidogrel [Plavix] 75 mg PO DAILY 12/06/18 04/01/19 Isoniazid 300 mg PO DAILY@0445 12/06/18 04/01/19 Pyridoxine HCl (Vitamin B6) 100 mg PO DAILY 12/06/18 12/06/18 [Vitamin B-6] Calcium Acetate [PhosLo] 1,334 mg PO AC-TID 04/01/19 04/01/19 Tamsulosin [Flomax] 0.4 mg PO DAILY 04/01/19 04/01/19 Previous Rx's Medication Instructions Recorded Atorvastatin [Lipitor] 40 mg PO DAILY #30 tab 01/21/18 Metoprolol Tartrate [Lopressor] 12.5 mg PO BID #60 tab 01/21/18 Cefuroxime Axetil [Ceftin] 500 mg PO DAILY #7 tab 04/03/19 Allergies Allergy/AdvReac Type Severity Reaction Status Date / Time No Known Allergies Allergy Verified 12/06/18 12:42 Review of Systems ROS Statement: Those systems with pertinent positive or pertinent negative responses have been documented in the HPI. ROS Other: All systems not noted in ROS Statement are negative. Constitutional: Denies: fever Respiratory: Denies: cough, dyspnea Cardiovascular: Reports: chest pain, edema (Chronic intermittent). Denies: palpitations, syncope Gastrointestinal: Denies: abdominal pain, nausea, vomiting Genitourinary: Denies: dysuria, hematuria Musculoskeletal: Denies: back pain Skin: Denies: rash Neurological: Denies: headache EKG Findings - EKG Results: EKG: interpreted by BRADLEYD, sinus rhythm (Rate 71 bpm), normal QRS, normal ST/T - Blocks, Calcium, Hypertrophy, ST Abn: QRS axis and voltage: left axis deviation (-30 to -90) Past Medical History Past Medical History: COPD, Dialysis, GERD/Reflux, GI Bleed, Hyperlipidemia, Hypertension, Osteoarthritis (OA), Prostate Disorder, Renal Disease Additional Past Medical History / Comment(s): Chronic lower extremity edema, decreased urinary stream lately, 1991 somach ulcer with hematemesis. Renal disease, Hemodialysis -W-. Hospitaized in January for volume overload. History of Any Multi-Drug Resistant Organisms: None Reported Past Surgical History: No Surgical Hx Reported, Heart Catheterization, Heart Catheterization With Stent Additional Past Surgical History / Comment(s): EGD, PermCath & renal bx.heart cath/DAWNA 04-26-18, heart cath last week. Fistula placement. # stents placed Past Anesthesia/Blood Transfusion Reactions: No Reported Reaction Additional Past Anesthesia/Blood Transfusion Reaction / Comment(s): Pt received blood years ago with his stomach ulcer bleed-no reaction. Past Psychological History: No Psychological Hx Reported Smoking Status: Former smoker Past Alcohol Use History: Unable to Obtain Past Drug Use History: None Reported - Past Family History Father Family Medical History: Asthma Additional Family Medical History / Comment(s): Father at the age of 64yrs. Mother Family Medical History: Myocardial Infarction ([place]) Additional Family Medical History / Comment(s): Mother had a [place] sometime prior to age 60yrs. She is 86yrs old. Brother(s) Family Medical History: No Reported History Sister(s) Family Medical History: No Reported History Son(s) Family Medical History: No Reported History Daughter(s) Family Medical History: No Reported History General Exam Limitations: no limitations General appearance: alert, in no apparent distress Head exam: Present: atraumatic, normocephalic Eye exam: Present: normal appearance. Absent: scleral icterus, conjunctival injection ENT exam: Present: normal oropharynx Neck exam: Present: normal inspection Respiratory exam: Present: normal lung sounds bilaterally, chest wall tenderness. Absent: respiratory distress, wheezes, rales, rhonchi, stridor, accessory muscle use Cardiovascular Exam: Present: regular rate, normal rhythm, normal heart sounds. Absent: systolic murmur, diastolic murmur, rubs, gallop GI/Abdominal exam: Present: soft. Absent: distended, tenderness, guarding, rebound, rigid Extremities exam: Present: normal inspection, normal capillary refill. Absent: pedal edema, calf tenderness Back exam: Present: normal inspection. Absent: CVA tenderness (R), CVA tenderness (L) Neurological exam: Present: alert Skin exam: Present: warm, dry, intact, normal color. Absent: rash Course Vital Signs 04/01/19 04/01/19 04/02/19 23:05 23:47 02:00 Temperature 98.4 F Pulse Rate 71 72 71 Respiratory 16 18 17 Rate Blood Pressure 182/67 175/79 171/77 O2 Sat by Pulse 98 99 99 Oximetry 04/02/19 04/02/19 04/02/19 02:30 02:36 02:54 Temperature Pulse Rate 70 69 76 Respiratory 17 16 Rate Blood Pressure 169/76 157/72 154/70 O2 Sat by Pulse 98 99 99 Oximetry 04/02/19 03:48 Temperature Pulse Rate 78 Respiratory Rate Blood Pressure 139/64 O2 Sat by Pulse Oximetry Disposition Clinical Impression: Chest pain, Hypertension Disposition: ADMITTED IP TO THIS HOSP Condition: Good
[2019-04-01 23:53] LABS: Anisocytosis Slight; Basophils # (A) 0.1 k/uL (0-0.2); Basophils % (A) 1 %; Eosinophils # (A) 0.4 k/uL (0-0.7); Eosinophils % (A) 4 %; HCT 40.7 % (39.0-53.0); HGB 12.5 gm/dL (13.0-17.5); Lymphocytes % (A) 10 %; MCHC 30.8 g/dL (31.0-37.0); MCV 91.1 fL (80.0-100.0); Mean Platelet Volume 8.4; Monocytes # (A) 0.7 k/uL (0-1.0); Monocytes % (A) 6 %; Neutrophils # (A) 8.1 k/uL (1.3-7.7); Neutrophils % (A) 78 %; Platelet Count 110 k/uL (150-450); RBC 4.47 m/uL (4.30-5.90); RDW 16.6 % (11.5-15.5); WBC 10.5 k/uL (3.8-10.6)
[2019-04-02 00:01] LABS: INR 0.9 (<1.2); Partial Thromboplastin Time 28.1 sec (22.0-30.0); Prothrombin Time 10.2 sec (9.0-12.0)
[2019-04-02 00:02] LABS: Albumin 4.5 g/dL (3.5-5.0); Calcium 8.6 mg/dL (8.4-10.2); Magnesium 2.8 mg/dL (1.6-2.3); Potassium 5.4 mmol/L (3.5-5.1); Total Bilirubin 0.7 mg/dL (0.2-1.3)
--- NOTE | 2019-04-02 00:13 | XR ---
EXAM: XR Chest, 2 Views CLINICAL HISTORY: Chest pain TECHNIQUE: Frontal and lateral views of the chest. COMPARISON: Chest x-ray dated 12/06/2017 FINDINGS: Lungs: Unremarkable. No consolidation. Pleural space: Unremarkable. No pneumothorax. Heart: Mild enlargement of the heart. Mediastinum: Unremarkable. Bones/joints: Unremarkable. IMPRESSION: No acute findings.
[2019-04-02] MEDS ORDERED: HYDROmorphone 0.5 MG/0.5 ML SYRINGE IVP STA (01:17)
[2019-04-02] MEDS ORDERED: LABETALOL 5 MG/ML VIAL MDV IVP STA (01:22)
[2019-04-02] MEDS ORDERED: MORPHINE SULFATE 4 MG/ML SYRINGE IV PRN (02:37)
[2019-04-02] MEDS ORDERED: ISONIAZID 300 MG PO SCH (04:45)
[2019-04-02 05:08] VITALS: BMI 29.5
[2019-04-02] MEDS: NITROGLYCERIN OINT 1 INCH/GM PACKET TOPICAL SCH ×4 (05:14→23:56)
[2019-04-02] MEDS: PYRIDOXINE 50 MG TAB PO SCH (05:14)
[2019-04-02] MEDS: ISONIAZID 100 MG TABLET PO SCH (05:14)
[2019-04-02] MEDS ORDERED: CALCIUM ACETATE 667 MG CAP PO SCH ×2 (07:30→09:00)
[2019-04-02 08:11] VITALS: RESP 16
[2019-04-02] MEDS: CALCIUM ACETATE 667 MG CAP PO SCH ×3 (08:11→17:03)
[2019-04-02] MEDS: TAMSULOSIN 0.4 MG CAP.ER.24H PO SCH (08:28)
[2019-04-02] MEDS: ATORVASTATIN 40 MG TAB PO SCH (08:28)
[2019-04-02] MEDS: FUROSEMIDE 80 MG TAB PO SCH ×2 (08:28→17:03)
[2019-04-02] MEDS: ENOXAPARIN 30 MG/0.3 ML SYRINGE SQ SCH (08:28)
[2019-04-02] MEDS: METOPROLOL TARTRATE 12.5 MG TAB PO SCH ×2 (08:28→20:23)
[2019-04-02] MEDS: amLODIPine 10 MG TAB PO SCH (08:28)
[2019-04-02] MEDS: ASPIRIN 81 MG PO SCH (08:28)
[2019-04-02] MEDS: CLOPIDOGREL 75 MG TAB PO SCH (08:28)
[2019-04-02] MEDS ORDERED: DOBUTamine DRIP for NUC MED 500 MG in DEXTROSE/WATER 1 250ML.BAG IV ONE (09:28)
--- NOTE | 2019-04-02 09:57 | CONS ---
CONSULTATION This is a 63-year-old gentleman with history of coronary artery disease, status post multivessel angioplasty in April of 2018 who has end-stage renal disease on hemodialysis, hypertension, dyslipidemia, who presented to hospital complaining of chest pain. He describes it as a precordial chest pressure that radiated to his back, mild intensity unrelated to exertion, unassociated with diaphoresis. The pain got better with movement. It is not reproducible. EKG does not reveal ischemic changes. Cardiac enzymes have been negative. He has end-stage renal disease and his BUN is 90, creatinine is 7.3. Given the known CAD and prior angioplasty and the atypical chest pain, I am advising the patient to undergo a dobutamine echo. If he has ischemia, he will undergo cardiac catheterization by Dr. Dunn who sees him regularly. PAST MEDICAL HISTORY: Significant for 3-vessel coronary artery disease and angioplasty, hypertension, end- stage renal disease on hemodialysis. MEDICATIONS: Medications at home include Norvasc 10 daily, Lopressor 12.5 b.i.d., INH 300 daily, Lasix 80 mg b.i.d., Plavix, PhosLo, Lipitor and aspirin. ALLERGIES: There are no known drug allergies. FAMILY HISTORY: Negative for premature coronary artery disease. SOCIAL HISTORY: Negative for current smoking, EtOH abuse, or drug abuse. REVIEW OF SYSTEMS: HEENT is unremarkable. CARDIAC: As described above. RESPIRATORY: As described above. GI: Negative. GENITOURINARY: Negative. ALLERGY/IMMUNOLOGY: Negative. SKIN: Negative. MUSCULOSKELETAL: Significant for arthritis. PSYCHOSOCIAL: Negative. ENDOCRINE: Negative. DERM: Negative. CONSTITUTIONAL: Negative. ONCOLOGICAL: Negative. HEMATOLOGICAL: Negative. Rest of the system review is not relevant. PHYSICAL EXAMINATION: On exam, comfortable at rest. Blood pressure is elevated at 160/77, respiratory rate is 18. Chest exam reveals good air entry bilaterally. Heart exam reveals first and second heart sounds and S4 is heard. Abdomen is soft. Examination of extremities did not reveal any edema. Peripheral pulses are felt. LABS: Labs are as described above. EKG is normal. Hemoglobin is 12.5. Potassium is 5.4. ASSESSMENT: 1. Precordial chest pain. 2. End-stage renal disease on hemodialysis. 3. Hypertension. PLAN: I will obtain a dobutamine echo. If this is negative, he can be discharged home. Optimize his medical therapy for blood pressure, add hydralazine if you have to and follow up with Dr. Dunn. If the stress test is abnormal, we will do a cardiac cath on him. MMRAMONAL / IJN: [id number] /
[2019-04-02] MEDS ORDERED: ATROPINE SULFATE 0.1 MG/ML 10ML SYRINGE ONE (11:40)
--- NOTE | 2019-04-02 12:17 | P.NPCON ---
History of Present Illness - Reason for Consult end stage renal disease - History of Present Illness Reason for consultation: End-stage renal disease History of present illness: Patient is a 63-year-old male seen in consultation for end-stage renal disease. He is maintained on hemodialysis on a Sunday schedule. Patient did not miss any treatments outpatient. He states that while resting yesterday evening he developed chest pain with radiation to his back. He denies any pain in his jaw or his arms. He denies any diaphoresis. Patient states he did take nitro at home with no relief in symptoms. No vomiting or diarrhea. Oral intake has been fair. Hemodynamically stable. He does have history of coronary artery disease and has stents. He is scheduled for stress test today. Hemoglobin is stable. No melena or hematochezia. No fever or chills Vital signs are stable. General: The patient appeared well nourished and normally developed. HEENT: Head exam is unremarkable. Neck is without jugular venous distension. LUNGS: Lungs are clear to auscultation and percussion. Breath sounds decreased. HEART: Rate and Rhythm are regular. First and second heart sounds normal. No m urmurs, rubs or gallops. ABDOMEN: Abdominal exam reveals normal bowel sounds. Non-tender and non-di stended. No evidence of peritonitis. EXTREMITITES: No clubbing, cyanosis, or edema. Past Medical History Past Medical History: COPD, Dialysis, GERD/Reflux, GI Bleed, Hyperlipidemia, Hypertension, Osteoarthritis (OA), Prostate Disorder, Renal Disease Additional Past Medical History / Comment(s): Chronic lower extremity edema, decreased urinary stream lately, 1992 somach ulcer with hematemesis. Renal disease, Hemodialysis -W-. Hospitaized in January for volume overload. History of Any Multi-Drug Resistant Organisms: None Reported Past Surgical History: No Surgical Hx Reported, Heart Catheterization, Heart Catheterization With Stent Additional Past Surgical History / Comment(s): EGD, PermCath & renal bx.heart cath/DAWNA 04-26-18, heart cath last week. Fistula placement. # stents placed Past Anesthesia/Blood Transfusion Reactions: No Reported Reaction Additional Past Anesthesia/Blood Transfusion Reaction / Comment(s): Pt received blood years ago with his stomach ulcer bleed-no reaction. Date of Last Stent Placement:: 05/28/18 Past Psychological History: No Psychological Hx Reported Smoking Status: Former smoker Past Alcohol Use History: Unable to Obtain Past Drug Use History: None Reported - Past Family History Father Family Medical History: Asthma Additional Family Medical History / Comment(s): Father at the age of 64yrs. Mother Family Medical History: Myocardial Infarction ([place]) Additional Family Medical History / Comment(s): Mother had a [place] sometime prior to age 60yrs. She is 86yrs old. Brother(s) Family Medical History: No Reported History Sister(s) Family Medical History: No Reported History Son(s) Family Medical History: No Reported History Daughter(s) Family Medical History: No Reported History Medications and Allergies Home Medications Medication Instructions Recorded Confirmed Type amLODIPine BESYLATE [Norvasc] 10 mg PO DAILY 01/02/18 04/01/19 History Atorvastatin [Lipitor] 40 mg PO DAILY #30 tab 01/21/18 04/01/19 Rx Metoprolol Tartrate [Lopressor] 12.5 mg PO BID #60 tab 01/21/18 04/01/19 Rx Aspirin [Children's Aspirin] 81 mg PO DAILY 04/26/18 04/01/19 History Furosemide [Lasix] 80 mg PO BID@0900,1600 04/26/18 04/01/19 History Clopidogrel [Plavix] 75 mg PO DAILY 12/06/18 04/01/19 History Isoniazid 300 mg PO DAILY@0445 12/06/18 04/01/19 History Pyridoxine HCl (Vitamin B6) 100 mg PO DAILY 12/06/18 12/06/18 History [Vitamin B-6] Calcium Acetate [PhosLo] 1,334 mg PO AC-TID 04/01/19 04/01/19 History Calcium Acetate [PhosLo] 667 mg PO BID 04/01/19 04/01/19 History Tamsulosin [Flomax] 0.4 mg PO DAILY 04/01/19 04/01/19 History Allergies Allergy/AdvReac Type Severity Reaction Status Date / Time No Known Allergies Allergy Verified 12/06/18 12:42 Physical Exam Vitals: Vital Signs Temp Pulse Pulse Resp BP BP Pulse Ox 04/02/19 12:00 70 16 153/73 97 04/02/19 08:00 99.7 F H 64 16 167/77 98 04/02/19 04:10 99.0 F 67 18 151/71 98 04/02/19 03:48 78 139/64 04/02/19 02:54 76 154/70 99 04/02/19 02:36 69 16 157/72 99 04/02/19 02:30 70 17 169/76 98 04/02/19 02:00 71 17 171/77 99 04/01/19 23:47 72 18 175/79 99 04/01/19 23:05 98.4 F 71 16 182/67 98 Intake and Output 04/01/19 04/02/19 04/02/19 22:59 06:59 14:59 Other: Voiding Method Toilet Weight 83.4 kg Results - Lab Results Most recent lab results Calcium 8.6 mg/dL (8.4-10.2) 04/01/19 23:22 Magnesium 2.8 mg/dL (1.6-2.3) H 04/01/19 23:22 04/01/19 23:22 04/01/19 23:22 Assessment and Plan Plan: Assessment: 1. End-stage renal disease maintained on hemodialysis on a Sunday schedule. 2. History of coronary artery disease status post stents. 3. Chest pain. Rule out acute coronary syndrome. Cardiology following. Stress test today. 4. Mild hyperkalemia secondary to chronic kidney disease. 5. Hypertension with chronic kidney disease. 6. Chronic kidney disease mineral bone disease. 7. 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 8. Chronic kidney disease mineral bone disease maintained on PhosLo. Plan: Hemodialysis today. Follow-up stress test results. Maintain current antihypertensives. Thank you for the consultation. I will continue to follow the patient with you during his hospital stay.
--- NOTE | 2019-04-02 12:53 | ECHOF ---
Referral Reason:cardiomegaly MEASUREMENTS -------- HEIGHT: 167.6 cm WEIGHT: 83.0 kg BP: 151/71 RVIDd: 2.7 cm (< 3.3) IVSd: 1.3 cm (0.6 - 1.1) LVIDd: 4.9 cm (3.9 - 5.3) LVPWd: 1.5 cm (0.6 - 1.1) IVSs: 2.0 cm LVIDs: 3.3 cm LVPWs: 2.0 cm LAESV Index (A-L): 53.69 ml/m Ao Diam: 3.2 cm (2.0 - 3.7) AV Cusp: 1.6 cm (1.5 - 2.6) LA Diam: 4.7 cm (2.7 - 3.8) EPSS: 0.9 cm MV E Joseph: 0.67 m/s MV DecT: 344 ms MV A Joseph: 0.91 m/s MV E/A Ratio: 0.73 AV maxP.02 mmHg AV meanP.96 mmHg RAP: 20.00 mmHg RVSP: 56.24 mmHg MV EF SLOPE: 101.75 mm/s (70 - 150) MV EXCURSION: 1.99 cm (> 18.000) FINDINGS -------- Sinus rhythm. This was a technically good study. The left ventricular size is normal. There is mild concentric left ventricular hypertrophy. Overa ll left ventricular systolic function is normal with, an EF between 55 - 60 %. The diastolic fillin g pattern is normal for the age of the patient. The right ventricle is normal in size. Left atrium is severely dilated by volume. The right atrial size is normal. Interatrial and interventricular septum intact. There is mild aortic valve sclerosis without stenosis. There is no evidence of aortic regurgitation . There is no evidence of aortic stenosis. Moderate mitral annular calcification present. Mild mitral regurgitation is present. [id number] tricuspid regurgitation present. There is moderate pulmonary hypertension. The r ight ventricular systolic pressure, as measured by Doppler, is 56.24mmHg. The pulmonic valve is normal. The aortic root size is normal. The inferior vena cava is mildly dilated. The inferior vena cava is dilated with poor inspiratory c ollapse which is consistent with estimated right atrial pressure of 20 mmHg. There is no pericardial effusion. CONCLUSIONS -------- 1. Sinus rhythm. 2. This was a technically good study. 3. The left ventricular size is normal. 4. There is mild concentric left ventricular hypertrophy. 5. Overall left ventricular systolic function is normal with, an EF between 55 - 60 %. 6. The diastolic filling pattern is normal for the age of the patient. 7. The right ventricle is normal in size. 8. Left atrium is severely dilated by volume. 9. The right atrial size is normal. 10. Interatrial and interventricular septum intact. 11. There is mild aortic valve sclerosis without stenosis. 12. There is no evidence of aortic regurgitation. 13. There is no evidence of aortic stenosis. 14. Moderate mitral annular calcification present. 15. Mild mitral regurgitation is present. 16. [id number] tricuspid regurgitation present. 17. There is moderate pulmonary hypertension. 18. The right ventricular systolic pressure, as measured by Doppler, is 56.24mmHg. 19. The pulmonic valve is normal. 20. The aortic root size is normal. 21. The inferior vena cava is mildly dilated. 22. The inferior vena cava is dilated with poor inspiratory collapse which is consistent with estimat ed right atrial pressure of 20 mmHg. 23. There is no pericardial effusion. [employer] COORDINATOR: Amanda Dunham RDCS
[2019-04-02] MEDS ORDERED: RX INFO: IV CONTRAST WAS GIVEN 1 EACH MISC MISCELLANE PRN (13:37)
--- NOTE | 2019-04-02 14:09 | ECHOS ---
STRESS ECHOCARDIOGRAM INDICATIONS: Chest pain. BASELINE HEART RATE: 62 BASELINE BLOOD PRESSURE: 145/56 MAXIMUM HEART RATE: 123 MAXIMUM BLOOD PRESSURE: 217/56 85% MPHR: 133 100% MPHR: 157 MAXIMUM STAGE REACHED: 5 TOTAL EXERCISE TIME: 14:00 CLINICAL INFORMATION: Baseline EKG revealed normal sinus rhythm with J-point prominence. No significant ST- segment changes. With dobutamine administration, heart rate changed from 62 to 123 beats per minute which is less than 85% of predicted maximal. His heart rate therefore was less than 85% even after 1 mg of atropine. This is therefore an inadequate chronotropic response with dobutamine, making this an inconclusive dobutamine stress test by EKG criteria. There was no significant ST-segment changes noted. By EKG criteria, this is an inconclusive dobutamine stress test because of inadequate chronotropic response. The patient had hypertensive response with a 217/56 peak blood pressure. Baseline echo images revealed normal wall motion and wall thickening of all segments. With dobutamine administration as per protocol, there was progressive increase in contractility noted. Maximal heart rate was 123 beats per minute, less than 85%, but at this heart rate level, there is no evidence of ischemia on the dobutamine echocardiogram. IMPRESSION: 1. By EKG criteria, this is an inconclusive dobutamine stress test because of inadequate chronotropic response with 40 mcg of dobutamine and 1 mg of atropine. 2. At the above-mentioned suboptimal heart rate level, there was no evidence of ischemia with dobutamine administration. MMODL / IJN: [id number] /
--- NOTE | 2019-04-02 14:55 | P.HPIM ---
History of Present Illness H&P Date: 04/02/19 Chief Complaint: Chest pain This is a 62-year-old male patient of Dr. Bains and Dr. Dunn with a past medical history of hypertension and hypertensive cardiovascular disease, hyperlipidemia, end-stage renal disease on hemodialysis, remote history of tobacco use quit 1 year ago, latent TB under the care of Dr. Nuñez, anemia of chronic kidney disease, valvular heart disease with moderate mitral regurgitation and mild tricuspid regurgitation. His last hospitalization was in January 2018 at which time he was treated for acute hypoxic respiratory failure requiring BiPAP secondary to pleural effusion and pulmonary edema, acute on chronic diastolic heart failure, acute kidney injury with chronic kidney disease stage II secondary to acute tubular necrosis that required hemodialysis, non-ST elevated myocardial infarction. He was subsequently brought into the hospital in April 2018 under the care of Dr. Dunn after having a positive stress test. Patient underwent heart catheterization that showed triple-vessel coronary artery disease, no pulmonary hypertension. DAWNA revealed mild to moderate mitral regurgitation, mild tricuspid regurgitation. Patient was evaluated by cardiothoracic surgery and patient was adamant that he did not want open-heart surgery, thus, patient was brought back on 05/08/[address] Dunn underwent PTCA and stenting of the proximal LAD, first obtuse marginal branch, mid right coronary artery. Patient complains of generalized muscle aches, chills, chest discomfort for one day. He denies any medication changes. No abdominal pain, no diarrhea, he does complain of dysuria. Patient gives history of being treated for latent TB by Dr. Nuñez and he is on INH at 5/9 months to complete course. Patient came into [facility] emergency center for evaluation of chest pain. Pulse ox 90% on room air, initial blood pressure 182/67, heart rate in the 70s. EKG was a sinus rhythm without acute ST-T wave changes. Patient was given labetalol 20 mg IV push, morphine, Dilaudid, nitroglycerin and aspirin and placed as an observation status. Patient has been evaluated by Dr. Escobar and he has recommended a dobutamine echocardiogram. If this is negative, patient may be discharged home with follow-up with Dr. Dunn. Stress test is inconclusive but at the suboptimal heart rate, there was no evidence of ischemia. Echocardiogram reveals EF 55-60% with mild aortic valve sclerosis without stenosis, mild mitral regurgitation, [id number] tricuspid regurgitation, moderate pulmonary hypertension, no pericardial effusion. We have added in a CAT scan of the abdomen and pelvis, urinalysis and culture, blood culture. Temperature max 99.7. Review of Systems Constitutional: Reports chills, Reports fatigue, Reports fever Ears, nose, mouth and throat: Denies dental pain, Denies dysphagia, Denies headache, Denies nasal congestion, Denies nasal discharge, Denies vertigo Cardiovascular: Reports chest pain, Denies dyspnea on exertion, Denies edema, Denies leg edema, Denies shortness of breath Respiratory: Denies cough, Denies cough with sputum, Denies dyspnea, Denies excessive sputum, Denies hemoptysis, Denies home oxygen, Denies wheezing Gastrointestinal: Denies abdominal pain, Denies diarrhea, Denies nausea, Denies vomiting Genitourinary: Reports as per HPI, Reports dysuria, Reports urinary hesitancy, Denies urinary retention Musculoskeletal: Reports myalgias, Denies frequent falls, Denies muscle weakness Integumentary: Denies pruritus, Denies rash, Denies wounds Neurological: Denies change in mentation, Denies change in speech, Denies numbness, Denies seizures, Denies weakness Psychiatric: Denies anxiety, Denies depression Endocrine: Denies fatigue, Denies weight change Past Medical History Past Medical History: COPD, Dialysis, GERD/Reflux, GI Bleed, Hyperlipidemia, Hypertension, Osteoarthritis (OA), Prostate Disorder, Renal Disease Additional Past Medical History / Comment(s): Chronic lower extremity edema, decreased urinary stream lately, 1991 somach ulcer with hematemesis. Renal disease, Hemodialysis . Hospitaized in January for volume overload. History of Any Multi-Drug Resistant Organisms: None Reported Past Surgical History: No Surgical Hx Reported, Heart Catheterization, Heart Catheterization With Stent Additional Past Surgical History / Comment(s): EGD, PermCath & renal bx.heart cath/DAWNA 04-26-18, heart cath last week. Fistula placement. # stents placed Past Anesthesia/Blood Transfusion Reactions: No Reported Reaction Additional Past Anesthesia/Blood Transfusion Reaction / Comment(s): Pt received blood years ago with his stomach ulcer bleed-no reaction. Date of Last Stent Placement:: 05/28/18 Past Psychological History: No Psychological Hx Reported Smoking Status: Former smoker Past Alcohol Use History: Unable to Obtain Additional Past Alcohol Use History / Comment(s): The patient was smoking one year ago. Past Drug Use History: None Reported - Past Family History Father Family Medical History: Asthma Additional Family Medical History / Comment(s): Father at the age of 64yrs. Mother Family Medical History: Myocardial Infarction ([place]) Additional Family Medical History / Comment(s): Mother had a DE sometime prior to age 60yrs. She is 86yrs old. Brother(s) Family Medical History: No Reported History Sister(s) Family Medical History: No Reported History Son(s) Family Medical History: No Reported History Daughter(s) Family Medical History: No Reported History Medications and Allergies Home Medications Medication Instructions Recorded Confirmed Type amLODIPine BESYLATE [Norvasc] 10 mg PO DAILY 01/02/18 04/01/19 History Atorvastatin [Lipitor] 40 mg PO DAILY #30 tab 01/21/18 04/01/19 Rx Metoprolol Tartrate [Lopressor] 12.5 mg PO BID #60 tab 01/21/18 04/01/19 Rx Aspirin [Children's Aspirin] 81 mg PO DAILY 04/26/18 04/01/19 History Furosemide [Lasix] 80 mg PO BID@0900,1600 04/26/18 04/01/19 History Clopidogrel [Plavix] 75 mg PO DAILY 12/06/18 04/01/19 History Isoniazid 300 mg PO DAILY@0445 12/06/18 04/01/19 History Pyridoxine HCl (Vitamin B6) 100 mg PO DAILY 12/06/18 12/06/18 History [Vitamin B-6] Calcium Acetate [PhosLo] 1,334 mg PO AC-TID 04/01/19 04/01/19 History Calcium Acetate [PhosLo] 667 mg PO BID 04/01/19 04/01/19 History Tamsulosin [Flomax] 0.4 mg PO DAILY 04/01/19 04/01/19 History Allergies Allergy/AdvReac Type Severity Reaction Status Date / Time No Known Allergies Allergy Verified 12/06/18 12:42 Physical Exam Vitals: Vital Signs Temp Pulse Pulse Resp BP BP Pulse Ox 04/02/19 08:00 99.7 F H 64 16 167/77 98 04/02/19 04:10 99.0 F 67 18 151/71 98 04/02/19 03:48 78 139/64 04/02/19 02:54 76 154/70 99 04/02/19 02:36 69 16 157/72 99 04/02/19 02:30 70 17 169/76 98 04/02/19 02:00 71 17 171/77 99 04/01/19 23:47 72 18 175/79 99 04/01/19 23:05 98.4 F 71 16 182/67 98 Intake and Output 04/01/19 04/02/19 04/02/19 22:59 06:59 14:59 Other: Voiding Method Toilet Weight 83.4 kg General appearance: Present: average body habitus, no acute distress - EENT Eyes: Present: EOMI, PERRLA ENT: Present: normal oropharynx Ears: bilateral: normal - Neck Neck: Present: normal ROM. Absent: lymphadenopathy Carotids: bilateral: upstroke normal Thyroid: bilateral: normal size - Respiratory Respiratory: bilateral: Diminished, crackles, negative: dullness, prolonged expiration - Cardiovascular Rhythm: regular Heart sounds: normal: S1, S2, systolic murmur Abnormal Heart Sounds: Absent: diastolic murmur, rub - Peripheral edema foot Peripheral Edema: bilateral: None - Gastrointestinal General gastrointestinal: Present: normal bowel sounds, soft. Absent: distended, tenderness - Integumentary Integumentary: Absent: palor, cyanotic - Neurologic Neurologic: Present: CNII-XII intact - Musculoskeletal Musculoskeletal: Present: gait normal, strength equal bilaterally - Psychiatric Psychiatric: Present: A&O x's 3, appropriate affect Results CBC & Chem 7: 04/01/19 23:22 04/01/19 23:22 Labs: Abnormal Lab Results - Last 24 Hours (Table) 04/01/19 04/01/19 Range/Units 23:22 23:22 Hgb 12.5 L (13.0-17.5) gm/dL MCHC 30.8 L (31.0-37.0) g/dL RDW 16.6 H (11.5-15.5) % Plt Count 110 L (150-450) k/uL Neutrophils # 8.1 H (1.3-7.7) k/uL Sodium 135 L (137-145) mmol/L Potassium 5.4 H (3.5-5.1) mmol/L Chloride 95 L (98-107) mmol/L BUN 90 H (9-20) mg/dL Creatinine 7.37 H* (0.66-1.25) mg/dL Glucose 110 H (74-99) mg/dL Magnesium 2.8 H (1.6-2.3) mg/dL ALT 11 L (21-72) U/L Thrombosis Risk Factor Assmnt - DVT/VTE Prophylaxis DVT/VTE Prophylaxis: Pharmacologic Prophylaxis ordered - Choose All That Apply Each Factor Represents 1 point: Medical pt on bed rest, Obesity (BMI >25), Swollen legs (current) Each Risk Factor Represents 2 Points: Age 61-74 years Thrombosis Risk Factor Assessment Total Risk Factor Score: 5 Thrombosis Risk Factor Assessment Level: High Risk Assessment and Plan Plan: 1. Chest pain with negative troponins. Chest pain most likely secondary to pleurisy. Dobutamine echocardiogram as above. Cardiology consult appreciated. Continue aspirin 81 mg daily, Lipitor 40 mg daily, Plavix 75 mg daily. 2. Dysuria with fever chills. Urinalysis and culture, blood culture, patient started on ceftriaxone. 3. History of latent TB currently on INH 5/9 month course under the care of Dr. Nuñez. Consult with Dr. Nuñez added. 4. History of coronary artery disease status post non-ST DE, PTCA and stenting of the proximal LAD, first obtuse marginal branch and mid right coronary artery. Continue as in #1. Cardiology consult appreciated. 5. End-stage renal disease on hemodialysis. Consult nephrology. 6. Anemia of chronic kidney disease, stable. 7. Hypertension and hypertensive cardiovascular disease. Continue Norvasc 10 mg daily, Lopressor 12.5 mg twice daily, Lasix 80 mg twice daily. 8. Valvular heart disease with moderate mitral regurgitation and mild tricuspid regurgitation, stable 9. Chronic diastolic heart failure. Continue Lasix. 10. Hyperlipidemia. Continue Lipitor. 11. Chronic thrombocytopenia, stable. 12. Remote history of tobacco use and dependence. Patient quit 1 year ago. 13. DVT prophylaxis. SCDs and NED hose. 14. GI prophylaxis. Pepcid. 14. Patient is a full code. Patient placed as an observation status. Discharge plan: Return home Impression and plan of care have been directed as dictated by the signing physician. Anita Amaya nurse practitioner acting as scribe for signing physician.
[2019-04-02 20:34] LABS: Appearance,Urine Cloudy (Clear); Bacteria,Urine Rare /hpf; Bilirubin,Urine Negative (Negative); Blood,Urine Large (Negative); Color,Urine Light Yellow; Glucose,Urine (UA) Negative (Negative); Ketones,Urine Negative (Negative); Leukocyte Esterase,Urine Negative (Negative); Nitrite,Urine Negative (Negative); Protein,Urine 2+ (Negative); RBC,Urine 176 /hpf (0-5); Urobilinogen,Urine <2.0 mg/dL (<2.0)
--- NOTE | 2019-04-02 23:14 | P.CONS ---
History of Present Illness - Reason for Consult Consult date: 04/02/19 Fever Requesting physician: Yesenia Avelar - Chief Complaint Chest pain 1 day - History of Present Illness Patient is 63-year-old male with a past medical history significant for end- stage renal disease on hemodialysis through the left arm AV fistula, patient did have a history of latent TB for the patient is currently on oral INH and B6 for the last 4 months, patient presenting to [facility] ER with chief complaint of chest pain, patient pain has been mostly in the left side of the chest more of a pressure-like intensity 5-10 and no radiation he did have 60 seated shortness of breath very minimal coughor production no nausea no vomiting no abdominal pain no diarrhea, the patient still makes urine abdomen did mention slight burning of urine has recently the symptom has a patient has been evaluated by the ER physician at [facility] the patient was afebrile, subsequently did have low-grade fever of 99.7 patient did have cultures except that was negative for any acute infiltrate, UA shows basic and evidence of some hematuria but no pyuria patient has been started on Rocephin and infectious disease was consulted for further recommendation regarding fever and antibiotic therapy Review of Systems Positive points has been mentioned in HPI rest of the systems are negative Past Medical History Past Medical History: COPD, Dialysis, GERD/Reflux, GI Bleed, Hyperlipidemia, Hy pertension, Osteoarthritis (OA), Prostate Disorder, Renal Disease Additional Past Medical History / Comment(s): Chronic lower extremity edema, decreased urinary stream lately, 1991 somach ulcer with hematemesis. Renal disease, Hemodialysis --. Hospitaized in January for volume overload. History of Any Multi-Drug Resistant Organisms: None Reported Past Surgical History: No Surgical Hx Reported, Heart Catheterization, Heart Catheterization With Stent Additional Past Surgical History / Comment(s): EGD, PermCath & renal bx.heart cath/DAWNA 04-26-18, heart cath last week. Fistula placement. # stents placed Past Anesthesia/Blood Transfusion Reactions: No Reported Reaction Additional Past Anesthesia/Blood Transfusion Reaction / Comm: Pt received blood years ago with his stomach ulcer bleed-no reaction. Date of Last Stent Placement:: 05/28/18 Past Psychological History: No Psychological Hx Reported Smoking Status: Former smoker Past Alcohol Use History: Unable to Obtain Past Drug Use History: None Reported - Past Family History Father Family Medical History: Asthma Additional Family Medical History / Comment(s): Father at the age of 64yrs. Mother Family Medical History: Myocardial Infarction (RI) Additional Family Medical History / Comment(s): Mother had a RI sometime prior t o age 60yrs. She is 86yrs old. Brother(s) Family Medical History: No Reported History Sister(s) Family Medical History: No Reported History Son(s) Family Medical History: No Reported History Daughter(s) Family Medical History: No Reported History Medications and Allergies Home Medications Medication Instructions Recorded Confirmed Type amLODIPine BESYLATE [Norvasc] 10 mg PO DAILY 01/02/18 04/01/19 History Atorvastatin [Lipitor] 40 mg PO DAILY #30 tab 01/21/18 04/01/19 Rx Metoprolol Tartrate [Lopressor] 12.5 mg PO BID #60 tab 01/21/18 04/01/19 Rx Aspirin [Children's Aspirin] 81 mg PO DAILY 04/26/18 04/01/19 History Furosemide [Lasix] 80 mg PO BID@0900,1600 04/26/18 04/01/19 History Clopidogrel [Plavix] 75 mg PO DAILY 12/06/18 04/01/19 History Isoniazid 300 mg PO DAILY@0445 12/06/18 04/01/19 History Pyridoxine HCl (Vitamin B6) 100 mg PO DAILY 12/06/18 12/06/18 History [Vitamin B-6] Calcium Acetate [PhosLo] 1,334 mg PO AC-TID 04/01/19 04/01/19 History Calcium Acetate [PhosLo] 667 mg PO BID 04/01/19 04/01/19 History Tamsulosin [Flomax] 0.4 mg PO DAILY 04/01/19 04/01/19 History Allergies Allergy/AdvReac Type Severity Reaction Status Date / Time No Known Allergies Allergy Verified 12/06/18 12:42 Physical Exam Vitals: Vital Signs Temp Pulse Pulse Resp BP BP Pulse Ox 04/02/19 12:00 70 16 153/73 97 04/02/19 08:00 99.7 F H 64 16 167/77 98 04/02/19 04:10 99.0 F 67 18 151/71 98 04/02/19 03:48 78 139/64 04/02/19 02:54 76 154/70 99 04/02/19 02:36 69 16 157/72 99 04/02/19 02:30 70 17 169/76 98 04/02/19 02:00 71 17 171/77 99 04/01/19 23:47 72 18 175/79 99 04/01/19 23:05 98.4 F 71 16 182/67 98 Intake and Output 04/01/19 04/02/19 04/02/19 22:59 06:59 14:59 Intake Total 180 Balance 180 Intake: Oral 180 Other: Voiding Method Toilet # Voids 1 Weight 83.4 kg GENERAL DESCRIPTION: Middle-aged male lying in bed, no distress. No tachypnea or accessory muscle of respiration use. HEENT: Shows Pallor , no scleral icterus. Oral mucous membrane is dry. No pharyngeal erythema or thrush NECK: Trachea central, no thyromegaly. LUNGS: Unlabored breathing. Clear to auscultation anteriorly. No wheeze or crackle. HEART: S1, S2, regular rate and rhythm. No loud murmur ABDOMEN: Soft, no tenderness , guarding or rigidity, no organomegaly EXTREMITIES: No edema of feet. SKIN: No rash, no masses palpable. NEUROLOGICAL: The patient is awake, alert, oriented x3, mood and affect normal. Results CBC & Chem 7: 04/01/19 23:22 04/01/19 23:22 Labs: Abnormal Lab Results - Last 24 Hours (Table) 04/01/19 04/01/19 04/02/19 Range/Units 23:22 23:22 12:10 Hgb 12.5 L (13.0-17.5) gm/dL MCHC 30.8 L (31.0-37.0) g/dL RDW 16.6 H (11.5-15.5) % Plt Count 110 L (150-450) k/uL Neutrophils # 8.1 H (1.3-7.7) k/uL Sodium 135 L (137-145) mmol/L Potassium 5.4 H (3.5-5.1) mmol/L Chloride 95 L (98-107) mmol/L BUN 90 H (9-20) mg/dL Creatinine 7.37 H* (0.66-1.25) mg/dL Glucose 110 H (74-99) mg/dL Magnesium 2.8 H (1.6-2.3) mg/dL ALT 11 L (21-72) U/L Troponin I 0.040 H* (0.000-0.034) ng/mL Assessment and Plan Assessment: 1 patient is 63-year-old male presented to the hospital with chest pain in this patient who didn't have any significant cough or sputum production, chest x-ray has been negative for any acute infiltrate patient did have a history of coronary disease with moderately elevated troponin possibly cardiac etiology cl inical suspicion of for underlying pneumonia this patient currently did have a low-grade fever of 99.7 but no obvious source of infection, and this patient complaining of some dysuria but urine is mostly showing blood and evidence of any pyuria his abdominal soft to examination and no inflammation at his left AV fistula site 2-patient with latent TB and this patient chest x-ray reportedly clear, and has been tolerating his vitamin B 6 and INH therapy Plan: 1-repeat a chest x-ray PA and lateral 2-we will check a CRP and pro calcitonin level 3-continue with empiric Rocephin while waiting for the culture finalized 4-INH 300 mg daily and vitamin B6 50 mg daily to continue we will follow on clinical condition and culture to further adjust medication if needed Thank you for this consultation will follow this patient along with you Time with Patient: Greater than 30
[2019-04-03] MEDS: ISONIAZID 100 MG TABLET PO SCH (04:47)
[2019-04-03] MEDS: PYRIDOXINE 50 MG TAB PO SCH (04:48)
[2019-04-03] MEDS: NITROGLYCERIN OINT 1 INCH/GM PACKET TOPICAL SCH ×2 (06:33→11:40)
[2019-04-03] MEDS: CALCIUM ACETATE 667 MG CAP PO SCH ×2 (06:33→12:41)
[2019-04-03 07:24] LABS: Anisocytosis Slight; HGB 11.1 gm/dL (13.0-17.5); Hypochromasia Moderate; MCH 29.4 pg (25.0-35.0); MCHC 30.7 g/dL (31.0-37.0); MCV 95.7 fL (80.0-100.0); RBC 3.76 m/uL (4.30-5.90)
[2019-04-03 07:41] LABS: Calcium 8.5 mg/dL (8.4-10.2); Potassium 4.8 mmol/L (3.5-5.1)
[2019-04-03 07:56] LABS: C Reactive Protein 208.5 mg/L (<10.0)
[2019-04-03 08:28] LABS: Platelet Count 86 k/uL (150-450)
[2019-04-03] MEDS ORDERED: FAMOTIDINE 20 MG TAB PO SCH (09:00)
[2019-04-03] MEDS: ENOXAPARIN 30 MG/0.3 ML SYRINGE SQ SCH (09:31)
[2019-04-03] MEDS: CLOPIDOGREL 75 MG TAB PO SCH (09:31)
[2019-04-03] MEDS: amLODIPine 10 MG TAB PO SCH (09:31)
[2019-04-03] MEDS: ASPIRIN 81 MG PO SCH (09:31)
[2019-04-03] MEDS: ATORVASTATIN 40 MG TAB PO SCH (09:31)
[2019-04-03] MEDS: METOPROLOL TARTRATE 12.5 MG TAB PO SCH (09:32)
[2019-04-03] MEDS: FUROSEMIDE 80 MG TAB PO SCH (09:32)
[2019-04-03] MEDS: TAMSULOSIN 0.4 MG CAP.ER.24H PO SCH (09:32)
--- NOTE | 2019-04-03 10:54 | P.PN ---
Subjective Patient is seen in follow-up for end-stage renal disease. He is maintained on hemodialysis on a Sunday schedule. Tolerated hemodialysis well yesterday. Stress test revealed no evidence of ischemia. No active chest pain or shortness of breath. Vital signs are stable. General: The patient appeared well nourished and normally developed. HEENT: Head exam is unremarkable. Neck is without jugular venous distension. LUNGS: Lungs are clear to auscultation and percussion. Breath sounds decreased. HEART: Rate and Rhythm are regular. First and second heart sounds normal. No murmurs, rubs or gallops. ABDOMEN: Abdominal exam reveals normal bowel sounds. Non-tender and non- distended. No evidence of peritonitis. EXTREMITITES: No clubbing, cyanosis, or edema. Objective - Vital Signs Vital signs: Vital Signs Temp 98.7 F 04/03/19 08:00 Pulse 73 04/03/19 08:00 Resp 16 04/03/19 08:00 BP 157/72 04/03/19 08:00 Pulse Ox 95 04/03/19 08:00 Intake & Output 04/02/19 04/03/19 04/03/19 18:59 06:59 18:59 Intake Total 540 Output Total 1999 20 Balance -1460 -20 Weight 81 kg Intake: Oral 540 Output: Urine 20 Hemodialysis 1999 Other: Voiding Method Toilet Toilet # Voids 1 0 - Labs CBC & Chem 7: 04/03/19 05:53 04/03/19 05:53 Labs: Abnormal Lab Results - Last 24 Hours (Table) 04/02/19 04/02/19 04/03/19 Range/Units 12:10 20:15 05:53 RBC (4.30-5.90) m/uL Hgb (13.0-17.5) gm/dL Hct (39.0-53.0) % MCHC (31.0-37.0) g/dL RDW (11.5-15.5) % Plt Count (150-450) k/uL Sodium 136 L (137-145) mmol/L BUN 57 H (9-20) mg/dL Creatinine 6.26 H (0.66-1.25) mg/dL Troponin I 0.040 H* (0.000-0.034) ng/mL C-Reactive Protein 208.5 H (<10.0) mg/L Urine Protein 2+ H (Negative) Urine Blood Large H (Negative) Urine RBC 176 H (0-5) /hpf Urine Bacteria Rare H (None) /hpf 04/03/19 Range/Units 05:53 RBC 3.76 L (4.30-5.90) m/uL Hgb 11.1 L (13.0-17.5) gm/dL Hct 36.0 L (39.0-53.0) % MCHC 30.7 L (31.0-37.0) g/dL RDW 17.0 H (11.5-15.5) % Plt Count 86 L (150-450) k/uL Sodium (137-145) mmol/L BUN (9-20) mg/dL Creatinine (0.66-1.25) mg/dL Troponin I (0.000-0.034) ng/mL C-Reactive Protein (<10.0) mg/L Urine Protein (Negative) Urine Blood (Negative) Urine RBC (0-5) /hpf Urine Bacteria (None) /hpf Assessment and Plan Plan: Assessment: 1. End-stage renal disease maintained on hemodialysis on a Sunday schedule. 2. History of coronary artery disease status post stents. 3. Chest pain. Rule out acute coronary syndrome. Cardiology following. No evidence of ischemia noted on stress test. 4. Mild hyperkalemia secondary to chronic kidney disease. Improved. 5. Hypertension with chronic kidney disease. Stable. 6. Chronic kidney disease mineral bone disease. 7. 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 8. Chronic kidney disease mineral bone disease maintained on PhosLo. Plan: Hemodialysis tomorrow. Maintain current antihypertensives.
[2019-04-03 11:40] VITALS: BP 144/67; PULSE 62; TEMP 98.3
--- NOTE | 2019-04-03 12:31 | CT ---
EXAMINATION TYPE: CT chest w con DATE OF EXAM: 04/03/2019 COMPARISON: None HISTORY: Fever, weakness, latent TB CT DLP: 371.7 mGycm Automated exposure control for dose reduction was used. CONTRAST: CT scan of the chest is performed with IV Contrast, patient injected with 100 mL of Isovue 300. FINDINGS: LUNGS: No pneumothorax. Mild hyperexpansion. Subsegmental changes are seen involving the lung bases m ost typical of atelectasis. No sizable pleural effusion. No overt failure. MEDIASTINUM: There are no greater than 1 cm hilar or mediastinal lymph nodes. No pericardial effusi on is seen. Heart is enlarged and there is dense coronary artery calcification is three-vessel. OTHER: Hypodensities within the kidneys and liver are indeterminate by noncontrast technique. Most l ikely etiology or cysts. There is a hyperdense lesion involving the left kidney inferior pole which c ould represent a hemorrhagic cyst but is only partially included on exam. Other etiologies not exclud ed. Hypertrophic and degenerative changes of the spine noted. IMPRESSION: 1. Cardiomegaly with three-vessel coronary artery disease. 2. Bilateral areas of consolidation are more typical of atelectasis than pneumonia correlate clinical ly. 3. Indeterminate hepatic and renal lesions as discussed above.
--- NOTE | 2019-04-03 13:27 | P.DS ---
Providers Date of admission: 04/02/19 02:38 Expected date of discharge: 04/03/19 Attending physician: Yesenia Avelar Consults: 04/02/19 02:38 Consult Physician Routine Consulting Provider: Jorge Dunn Consult Reason/Comments: chest pain Do you want consulting provider notified?: Yes 04/02/19 07:21 Consult Physician Urgent Consulting Provider: Fer Phipps Consult Reason/Comments: Dialysis patient Do you want consulting provider notified?: Yes 04/02/19 13:37 Consult Physician Routine Consulting Provider: Tristian Nuñez Consult Reason/Comments: fever, on HD Do you want consulting provider notified?: Yes [facility] Course: This is a 62-year-old male patient of Dr. Bains and Dr. Dunn with a past medical history of hypertension and hypertensive cardiovascular disease, hyperlipidemia, end-stage renal disease on hemodialysis, remote history of tobacco use quit 1 year ago, latent TB under the care of Dr. Nuñez, anemia of chronic kidney disease, valvular heart disease with moderate mitral regurgitation and mild tricuspid regurgitation. His last hospitalization was in January 2018 at which time he was treated for acute hypoxic respiratory failure requiring BiPAP secondary to pleural effusion and pulmonary edema, acute on chronic diastolic heart failure, acute kidney injury with chronic kidney disease stage II secondary to acute tubular necrosis that required hemodialysis, non-ST elevated myocardial infarction. He was subsequently brought into the hospital in April 2018 under the care of Dr. Dunn after having a positive stress test. Patient underwent heart catheterization that showed triple-vessel coronary artery disease, no pulmonary hypertension. DAWNA revealed mild to moderate mitral regurgitation, mild tricuspid regurgitation. Patient was evaluated by cardiothoracic surgery and patient was adamant that he did not want open-heart surgery, thus, patient was brought back on 05/08/[address] Dunn underwent PTCA and stenting of the proximal LAD, first obtuse marginal branch, mid right coronary artery. Patient complains of generalized muscle aches, chills, chest discomfort for one day. He denies any medication changes. No abdominal pain, no diarrhea, he does complain of dysuria. Patient gives history of being treated for latent TB by Dr. Nuñez and he is on INH at 5/9 months to complete course. Patient came into [facility] emergency center for evaluation of chest pain. Pulse ox 90% on room air, initial blood pressure 182/67, heart rate in the 70s. EKG was a sinus rhythm without acute ST-T wave changes. Patient was given labetalol 20 mg IV push, morphine, Dilaudid, nitroglycerin and aspirin and placed as an observation status. Patient has been evaluated by Dr. Escobar and he has recommended a dobutamine echocardiogram. If this is negative, patient may be discharged home with follow-up with Dr. Dunn. Stress test is inconclusive but at the suboptimal heart rate, there was no evidence of ischemia. Echocardiogram reveals EF 55-60% with mild aortic valve sclerosis without stenosis, mild mitral regurgitation, [id number] tricuspid regurgitation, moderate pulmonary hypertension, no pericardial effusion. We have added in a CAT scan of the abdomen and pelvis, urinalysis and culture, blood culture. Temperature max 99.7. 04/03: Patient states that his chest pain is completely resolved. He does complain of sore throat but no noted oral pharyngeal erythema or edema. He denies any fever or chills. A CAT scan of the chest with contrast revealed cardiomegaly with 3 vessel coronary artery disease. Bilateral areas of consolidation are more typical of atelectasis and pneumonia. Indeterminate hepatic and renal lesions. Patient is scheduled for hemodialysis tomorrow. Dr. Phipps has recommended continuing current antihypertensives. Patient has been afebrile, heart rate 62, blood pressure 1 4467, pulse ox 96% on room air. Repeat lab work reveals white count 8, hemoglobin 11.1, platelet count 86. Sodium 136, BUN 57 creatinine 6.26, potassium 4.8. C-reactive protein is 208.5, pro calcitonin 5.73. Triglycerides 45, cholesterol 94, LDL 31, HDL 54. Urinalysis was positive for large amount of blood, RBCs 176. Patient has been seen by Dr. Nuñez with recommendations for cefuroxime at home. Patient will be discharged home today in stable condition. Discharge diagnoses: 1. Chest pain with negative troponins. Chest pain most likely secondary to pleurisy and atelectasis. 2. Dysuria with fever chills, acute urinary tract infection ruled out. 3. History of latent TB currently on INH 5/9 month course under the care of Dr. Nuñez. 4. History of coronary artery disease status post non-ST CA, PTCA and stenting of the proximal LAD, first obtuse marginal branch and mid right coronary artery. 5. End-stage renal disease on hemodialysis. 6. Anemia of chronic kidney disease, stable. 7. Hypertension and hypertensive cardiovascular disease. 8. Valvular heart disease with moderate mitral regurgitation and mild tricuspid regurgitation, stable 9. Chronic diastolic heart failure. 10. Hyperlipidemia. 11. Chronic thrombocytopenia, stable. 12. Remote history of tobacco use and dependence. Patient quit 1 year ago. Discharge plan: Return home Impression and plan of care have been directed as dictated by the signing physician. Anita Amaya nurse practitioner acting as scribe for signing physician. Patient Condition at Discharge: Good Plan - Discharge Summary Discharge Rx Participant: No New Discharge Prescriptions: New Cefuroxime Axetil [Ceftin] 500 mg PO DAILY #7 tab Continue amLODIPine BESYLATE [Norvasc] 10 mg PO DAILY Atorvastatin [Lipitor] 40 mg PO DAILY #30 tab Metoprolol Tartrate [Lopressor] 12.5 mg PO BID #60 tab Furosemide [Lasix] 80 mg PO BID@0900,1600 Aspirin [Children's Aspirin] 81 mg PO DAILY Isoniazid 300 mg PO DAILY@0445 Clopidogrel [Plavix] 75 mg PO DAILY Pyridoxine HCl (Vitamin B6) [Vitamin B-6] 100 mg PO DAILY Calcium Acetate [PhosLo] 1,334 mg PO AC-TID Tamsulosin [Flomax] 0.4 mg PO DAILY Discontinued Calcium Acetate [PhosLo] 667 mg PO BID Discharge Medication List amLODIPine BESYLATE [Norvasc] 10 mg PO DAILY 01/02/18 [History] Atorvastatin [Lipitor] 40 mg PO DAILY #30 tab 01/21/18 [Rx] Metoprolol Tartrate [Lopressor] 12.5 mg PO BID #60 tab 01/21/18 [Rx] Aspirin [Children's Aspirin] 81 mg PO DAILY 04/26/18 [History] Furosemide [Lasix] 80 mg PO BID@0900,1600 04/26/18 [History] Clopidogrel [Plavix] 75 mg PO DAILY 12/06/18 [History] Isoniazid 300 mg PO DAILY@0445 12/06/18 [History] Pyridoxine HCl (Vitamin B6) [Vitamin B-6] 100 mg PO DAILY 12/06/18 [History] Calcium Acetate [PhosLo] 1,334 mg PO AC-TID 04/01/19 [History] Tamsulosin [Flomax] 0.4 mg PO DAILY 04/01/19 [History] Cefuroxime Axetil [Ceftin] 500 mg PO DAILY #7 tab 04/03/19 [Rx] Follow up Appointment(s)/Referral(s): Jorge Dunn MD [STAFF PHYSICIAN] - 2 Weeks Estrellita Bains MD [Primary Care Provider] - 1 Week Tristian Nuñez MD [STAFF PHYSICIAN] - 2 Weeks Discharge Disposition: HOME SELF-CARE
--- NOTE | 2019-04-03 13:53 | XR ---
EXAMINATION TYPE: XR chest 2V DATE OF EXAM: 04/03/2019 COMPARISON: 04/02/2019 HISTORY: Fever TECHNIQUE: Frontal and lateral views of the chest are obtained. FINDINGS: Cardiomediastinal silhouette is mildly enlarged. No focal consolidation, pleural effusion or pneumothorax. Osseous structures are intact. Chronic pleural reaction at the left lung base. Pulmo nary hyperinflation with flattening of the diaphragms indicative of underlying COPD. Mild multilevel degenerative changes of the spine. IMPRESSION: Sequela of COPD with no acute cardiopulmonary process.
--- NOTE | 2019-04-03 13:59 | PN ---
PROGRESS NOTE DATE OF SERVICE: 04/03/2019. REASON FOR FOLLOWUP: Fever, possible pneumonia. INTERVAL HISTORY: The patient is currently afebrile. The patient has been breathing comfortably. The patient denies having any chest pain. He did have a very minimal cough. No nausea, no vomiting, no abdominal pain and no diarrhea. PHYSICAL EXAMINATION: Blood pressure 144/67 with a pulse of 52, temperature 98.3. He is 96% on room air. General description is a middle-aged male up in the room in no distress. HEENT EXAMINATION: Pallor. LUNGS: Unlabored breathing with decreased breath sounds in the bases. No wheeze. HEART: S1, S2. Regular rate and rhythm. ABDOMEN: Soft. No tenderness. LABS/IMAGING: Hemoglobin is 11.1, white count 8.0, creatinine 6.26. CRP is 208 and procalcitonin elevated at 5.73. CT chest with bilateral basilar consolidation with concern for atelectasis versus pneumonia. DIAGNOSTIC IMPRESSION AND PLAN: 1. Patient admitted to hospital with chest pain in this patient who did have a low- grade fever with a cough, with concern for pneumonia, possibly community-acquired. As the patient seems to have responded clinically to IV Rocephin and in view of elevated procalcitonin level, will advise a 7-day course of oral Ceftin. Daily dose to be adjusted to his kidney function. Monitor clinical course closely. Continue with supportive care. Prescription sent to the pharmacy. 2. Patient with latent TB. To continue with INH and B6. MMODL / IJN: [id number] /
== END 2019-04-03 16:36 | disposition home or self-care (01) ==
LOC: EC 23:01 → 3SCARD 04-02 02:38
PROVIDERS: ADMIT Family Medicine; ATTEND Family Medicine
DX: R07.89 Other chest pain (principal); R30.0 Dysuria; J44.9 Chronic obstructive pulmonary disease, unspecified; E78.5 Hyperlipidemia, unspecified; I50.32 Chronic diastolic (congestive) heart failure; I08.1 Rheumatic disorders of both mitral and tricuspid valves; E83.89 Other disorders of mineral metabolism; Z87.891 Personal history of nicotine dependence; Z95.5 Presence of coronary angioplasty implant and graft; K21.9 Gastro-esophageal reflux disease without esophagitis; M19.90 Unspecified osteoarthritis, unspecified site; Z87.11 Personal history of peptic ulcer disease; Z99.2 Dependence on renal dialysis; N18.6 End stage renal disease; R50.9 Fever, unspecified; A15.9 Respiratory tuberculosis unspecified; D63.1 Anemia in chronic kidney disease; D69.6 Thrombocytopenia, unspecified; E87.5 Hyperkalemia; I13.2 Hypertensive heart and chronic kidney disease with heart failure and with stage 5 chronic kidney disease, or end stage renal disease; I25.10 Atherosclerotic heart disease of native coronary artery without angina pectoris; I25.2 Old myocardial infarction; Z82.49 Family history of ischemic heart disease and other diseases of the circulatory system; Z82.5 Family history of asthma and other chronic lower respiratory diseases; Z79.899 Other long term (current) drug therapy; Z79.02 Long term (current) use of antithrombotics/antiplatelets; Z79.82 Long term (current) use of aspirin
CPT/HCPCS: 96365; 96366; 96372 ×2; 96376; 96375 ×2; 99285; 36415; 93005; 93306; 93351; 85379; 80061; 80053; 80048; 83735; 84484 ×2; 85025; 85027; 85610; 85730; 86140; 81001; 87040; 84145; 71046 ×2; 71260; G0378 ×2; J1250; J2270; J0696 ×2; J0461; J1650 ×2; J1170; Q9967; 90935

== ENCOUNTER 2019-04-12 21:03 | Inpatient (IN) | payer MEDICARE, BC ==
--- NOTE | 2019-04-12 21:43 | ED ---
General Adult HPI - General Chief complaint: Shortness of Breath Stated complaint: GABRIELLE Time Seen by Provider: 04/12/19 21:27 Source: patient, family Mode of arrival: ambulatory Limitations: language barrier - History of Present Illness Initial comments: Ranjan is a 63 yo M with PMH significant for dialysis-dependent end-stage renal disease for which she attends dialysis Sunday. Patient since the emergency department today for evaluation of generalized unwell, weakness and shortness of breath. Patient reports that he's been feeling unwell throughout the day today, he's had some nausea, vomiting and diarrhea. He reports that after vomiting this afternoon he began to feel short of breath and very weak which prompted his son to bring him to the ER for evaluation. Of note the patient's currently being treated for strep throat with oral antibiotics, patient had completed a course of 10 days of antibiotics with no improvement in his symptoms he followed up with his primary care physician and that was prescribed a new antibiotic. She denies any fevers, chills, chest pain or palpitations. Patient reports his last dialysis was Sunday and they removed 2 L. Patient does still make urine. - Related Data Home Medications Medication Instructions Recorded Confirmed amLODIPine BESYLATE [Norvasc] 10 mg PO DAILY 01/02/18 04/12/19 Aspirin [Children's Aspirin] 81 mg PO DAILY 04/26/18 04/12/19 Furosemide [Lasix] 80 mg PO BID@0900,1600 04/26/18 04/12/19 Clopidogrel [Plavix] 75 mg PO DAILY 12/06/18 04/12/19 Isoniazid 300 mg PO DAILY@0445 12/06/18 04/12/19 Pyridoxine HCl (Vitamin B6) 100 mg PO DAILY 12/06/18 04/12/19 [Vitamin B-6] Calcium Acetate [PhosLo] 1,334 mg PO AC-TID 04/01/19 04/12/19 Tamsulosin [Flomax] 0.4 mg PO DAILY 04/01/19 04/12/19 Baclofen [Lioresal] 5 mg PO BID 04/12/19 04/12/19 Brimonidine/Dorzolamide/Pf 1 drop LEFT EYE DAILY 04/12/19 04/12/19 [Brimonidine 0.15%-Dorzolam 2%] Calcium Acetate [Phoslo] 667 mg PO BID 04/12/19 04/12/19 Nitroglycerin Sl Tabs [Nitrostat] 0.4 mg SUBLINGUAL Q5M PRN 04/12/19 04/12/19 Penicillin V Potassium [Pen Vee K] 500 mg PO BID 04/12/19 04/12/19 Previous Rx's Medication Instructions Recorded Atorvastatin [Lipitor] 40 mg PO DAILY #30 tab 01/21/18 Metoprolol Tartrate [Lopressor] 12.5 mg PO BID #60 tab 01/21/18 Allergies Allergy/AdvReac Type Severity Reaction Status Date / Time No Known Allergies Allergy Verified 04/12/19 21:36 Review of Systems ROS Statement: Those systems with pertinent positive or pertinent negative responses have been documented in the HPI. ROS Other: All systems not noted in ROS Statement are negative. Past Medical History Past Medical History: COPD, Dialysis, GERD/Reflux, GI Bleed, Hyperlipidemia, Hypertension, Osteoarthritis (OA), Prostate Disorder, Renal Disease Additional Past Medical History / Comment(s): Chronic lower extremity edema, decreased urinary stream lately, 1992 somach ulcer with hematemesis. Renal disease, Hemodialysis M-W-. Hospitaized in January for volume overload. History of Any Multi-Drug Resistant Organisms: None Reported Past Surgical History: No Surgical Hx Reported, Heart Catheterization, Heart Catheterization With Stent Additional Past Surgical History / Comment(s): EGD, PermCath & renal bx.heart cath/DAWNA 04-26-18, heart cath last week. Fistula placement. # stents placed Past Anesthesia/Blood Transfusion Reactions: No Reported Reaction Additional Past Anesthesia/Blood Transfusion Reaction / Comment(s): Pt received blood years ago with his stomach ulcer bleed-no reaction. Date of Last Stent Placement:: 05/28/18 Past Psychological History: No Psychological Hx Reported Smoking Status: Former smoker Past Alcohol Use History: Unable to Obtain Past Drug Use History: None Reported - Past Family History Father Family Medical History: Asthma Additional Family Medical History / Comment(s): Father at the age of 64yrs. Mother Family Medical History: Myocardial Infarction ([place]) Additional Family Medical History / Comment(s): Mother had a [place] sometime prior to age 60yrs. She is 86yrs old. Brother(s) Family Medical History: No Reported History Sister(s) Family Medical History: No Reported History Son(s) Family Medical History: No Reported History Daughter(s) Family Medical History: No Reported History General Exam - General Exam Comments Initial Comments: Physical Exam GENERAL: Chronically ill-appearing Diaphoretic HENT: Normocephalic, Atraumatic. EYES: PERRL, EOMI PULMONARY: Unlabored respirations. No audible rales rhonchi or wheezing was noted. CARDIOVASCULAR: There is a regular rate and rhythm without any murmurs gallops or rubs. Fistula left upper extremity ABDOMEN: Soft and nontender with normal bowel sounds. SKIN: Skin is clear with no lesions or rashes and otherwise unremarkable. : Deferred NEUROLOGIC: Patient is alert and oriented x3. Moving all extremities spontaneously MUSCULOSKELETAL: Normal extremities with adequate strength and full range of motion. No lower extremity swelling or edema. No calf tenderness. PSYCHIATRIC: Normal psychiatric evaluation Limitations: language barrier Course Vital Signs 04/12/19 04/12/19 04/12/19 21:08 21:22 21:28 Temperature 97.5 F L Pulse Rate 64 82 Respiratory 16 18 18 Rate Blood Pressure 73/60 99/65 O2 Sat by Pulse 95 96 Oximetry 04/12/19 04/12/19 04/12/19 21:44 22:19 22:44 Temperature 97.9 F 97.6 F Pulse Rate 88 80 68 Respiratory 18 18 18 Rate Blood Pressure 81/56 84/57 87/64 O2 Sat by Pulse 100 98 99 Oximetry 04/12/19 23:05 Temperature Pulse Rate Respiratory Rate Blood Pressure 103/75 O2 Sat by Pulse Oximetry EKG Findings - EKG Comments: EKG Findings:: EKG was obtained due to the complaint of shortness of breath tachycardia, EKG obtained at 2126, rate is 103 rhythm is A. fib with RVR there is normal axis are normal intervals, care is 76, QTC 413, there are no acute ST elevations or depressions no evidence of acute ischemia or infarction Medical Decision Making - Medical Decision Making The patient was seen and evaluated, history is obtained from patient and family at bedside as well as review of medical record Patient was seen and evaluated earlier in the month he was treated with antibiotics for possible strep infection, patient was having now with nausea, vomiting, diarrhea EKG with new onset afib Labs are at baseline for patient Patient care was discussed with Dr. Solis who is familiar with the patient. Based on the fact that the patient was on antibiotics earlier in the month she would like his stool tested for C. diff. She also recommends heparin the given that the patient is on Plavix does not need a bolus. Vitamins admission with consults to nephrology for management of chronic kidney disease and cardiology for new onset A. fib. Admission orders were placed. Patient received 1L IVF in the ER, BP improved, patient resting comfortably in the bed. - Lab Data Result diagrams: 04/12/19 21:40 04/12/19 21:40 Lab Results 04/12/19 04/12/19 04/12/19 Range/Units 21:40 21:40 21:40 WBC 11.5 H (3.8-10.6) k/uL RBC 4.12 L (4.30-5.90) m/uL Hgb 11.5 L (13.0-17.5) gm/dL Hct 37.7 L (39.0-53.0) % MCV 91.6 (80.0-100.0) fL MCH 28.0 (25.0-35.0) pg MCHC 30.6 L (31.0-37.0) g/dL RDW 15.8 H (11.5-15.5) % Plt Count 130 L D (150-450) k/uL Neutrophils % 86 % Lymphocytes % 6 % Monocytes % 6 % Eosinophils % 1 % Basophils % 0 % Neutrophils # 9.9 H (1.3-7.7) k/uL Lymphocytes # 0.7 L (1.0-4.8) k/uL Monocytes # 0.7 (0-1.0) k/uL Eosinophils # 0.1 (0-0.7) k/uL Basophils # 0.0 (0-0.2) k/uL PT (9.0-12.0) sec INR (<1.2) APTT (22.0-30.0) sec Sodium 131 L (137-145) mmol/L Potassium 5.2 H (3.5-5.1) mmol/L Chloride 86 L (98-107) mmol/L Carbon Dioxide 26 (22-30) mmol/L Anion Gap 19 mmol/L BUN 61 H (9-20) mg/dL Creatinine 7.31 H* (0.66-1.25) mg/dL Est GFR (CKD-EPI)AfAm 8 (>60 ml/min/1.73 sqM) Est GFR (CKD-EPI)NonAf 7 (>60 ml/min/1.73 sqM) Glucose 171 H (74-99) mg/dL Plasma Lactic Acid Zac 1.7 (0.7-2.0) mmol/L Calcium 8.8 (8.4-10.2) mg/dL Total Bilirubin 0.5 (0.2-1.3) mg/dL AST 39 (17-59) U/L ALT 16 L (21-72) U/L Alkaline Phosphatase 123 (38-126) U/L Total Protein 6.7 (6.3-8.2) g/dL Albumin 4.1 (3.5-5.0) g/dL 04/12/19 Range/Units 21:40 WBC (3.8-10.6) k/uL RBC (4.30-5.90) m/uL Hgb (13.0-17.5) gm/dL Hct (39.0-53.0) % MCV (80.0-100.0) fL MCH (25.0-35.0) pg MCHC (31.0-37.0) g/dL RDW (11.5-15.5) % Plt Count (150-450) k/uL Neutrophils % % Lymphocytes % % Monocytes % % Eosinophils % % Basophils % % Neutrophils # (1.3-7.7) k/uL Lymphocytes # (1.0-4.8) k/uL Monocytes # (0-1.0) k/uL Eosinophils # (0-0.7) k/uL Basophils # (0-0.2) k/uL PT 11.5 (9.0-12.0) sec INR 1.1 (<1.2) APTT 29.9 (22.0-30.0) sec Sodium (137-145) mmol/L Potassium (3.5-5.1) mmol/L Chloride (98-107) mmol/L Carbon Dioxide (22-30) mmol/L Anion Gap mmol/L BUN (9-20) mg/dL Creatinine (0.66-1.25) mg/dL Est GFR (CKD-EPI)AfAm (>60 ml/min/1.73 sqM) Est GFR (CKD-EPI)NonAf (>60 ml/min/1.73 sqM) Glucose (74-99) mg/dL Plasma Lactic Acid Zac (0.7-2.0) mmol/L Calcium (8.4-10.2) mg/dL Total Bilirubin (0.2-1.3) mg/dL AST (17-59) U/L ALT (21-72) U/L Alkaline Phosphatase (38-126) U/L Total Protein (6.3-8.2) g/dL Albumin (3.5-5.0) g/dL Disposition Clinical Impression: New onset a-fib, End stage renal disease on dialysis Disposition: ADMITTED IP TO THIS [facility] Condition: Serious Is patient prescribed a controlled substance at d/c from ED?: No Referrals: Estrellita Bains MD [Primary Care Provider] - 1-2 days
[2019-04-12] MEDS: SODIUM CHLORIDE 0.9% 500 ML 500 ML IV SCH ×2 (21:46→22:25)
[2019-04-12 21:51] LABS: Basophils % (A) 0 %; Eosinophils # (A) 0.1 k/uL (0-0.7); Eosinophils % (A) 1 %; HCT 37.7 % (39.0-53.0); HGB 11.5 gm/dL (13.0-17.5); Lymphocytes # (A) 0.7 k/uL (1.0-4.8); Lymphocytes % (A) 6 %; MCHC 30.6 g/dL (31.0-37.0); MCV 91.6 fL (80.0-100.0); Mean Platelet Volume 9.8; Monocytes # (A) 0.7 k/uL (0-1.0); Monocytes % (A) 6 %; Neutrophils # (A) 9.9 k/uL (1.3-7.7); Neutrophils % (A) 86 %; RBC 4.12 m/uL (4.30-5.90); RDW 15.8 % (11.5-15.5); WBC 11.5 k/uL (3.8-10.6)
[2019-04-12 21:57] LABS: Platelet Count 130 k/uL (150-450)
[2019-04-12 22:00] LABS: Albumin 4.1 g/dL (3.5-5.0); Calcium 8.8 mg/dL (8.4-10.2); Potassium 5.2 mmol/L (3.5-5.1); Total Bilirubin 0.5 mg/dL (0.2-1.3); Total Protein 6.7 g/dL (6.3-8.2)
[2019-04-12 22:02] LABS: INR 1.1 (<1.2); Partial Thromboplastin Time 29.9 sec (22.0-30.0); Prothrombin Time 11.5 sec (9.0-12.0)
--- NOTE | 2019-04-12 22:25 | XR ---
History: ITS.REASON XR Reason: Fever Exam: XR CXR 2 VIEWS Comparison: 04/03/2019 FINDINGS: Small bilateral pleural effusions. The lungs otherwise appear clear. The pulmonary vascularity appears within limits. The cardiac silhouette is enlarged. Visualized osseous structures appear within limits. IMPRESSION: Small bilateral pleural effusions. The lungs otherwise appear clear. The pulmonary vascularity appears within limits. The cardiac silhouette is enlarged.
[2019-04-12] MEDS ORDERED: HEPARIN SODIUM,PORCINE 5,000 UNIT/ML 1 ML VIAL IV PRN (23:05)
[2019-04-12] MEDS ORDERED: NALOXONE 0.4 MG/ML 1 ML VIAL IV PRN (23:12)
[2019-04-12] MEDS: HEPARIN SOD,PORK IN 0.45% NACL 25,000 UNIT in 0.45% NACL 1 250ML.BAG IV SCH (23:35)
[2019-04-13] MEDS: SODIUM CHLORIDE 0.9% 1,000 ML IV SCH ×2 (01:03→13:08)
[2019-04-13] MEDS: ACETAMINOPHEN TAB 325 MG TAB PO PRN (01:18)
[2019-04-13] MEDS: HYDROcodone/APAP 5-325MG 1 EACH TAB PO PRN ×2 (04:31→17:33)
[2019-04-13] MEDS: PYRIDOXINE 50 MG TAB PO SCH (04:38)
[2019-04-13] MEDS: ISONIAZID 100 MG TABLET PO SCH (04:38)
[2019-04-13 06:34] LABS: Anisocytosis Slight; Basophils % (A) 0 %; Eosinophils # (A) 0.1 k/uL (0-0.7); Eosinophils % (A) 1 %; HCT 35.5 % (39.0-53.0); HGB 10.9 gm/dL (13.0-17.5); Hypochromasia Slight; Lymphocytes # (A) 0.8 k/uL (1.0-4.8); Lymphocytes % (A) 9 %; MCH 28.8 pg (25.0-35.0); MCHC 30.8 g/dL (31.0-37.0); MCV 93.5 fL (80.0-100.0); Mean Platelet Volume 9.9; Monocytes # (A) 0.5 k/uL (0-1.0); Monocytes % (A) 5 %; Neutrophils # (A) 7.8 k/uL (1.3-7.7); Neutrophils % (A) 84 %; Platelet Count 124 k/uL (150-450); RBC 3.79 m/uL (4.30-5.90); RDW 16.7 % (11.5-15.5); WBC 9.2 k/uL (3.8-10.6)
[2019-04-13 06:34] LABS: Glucose,Whole Blood 127 mg/dL (75-99)
[2019-04-13 06:45] LABS: Calcium 8.2 mg/dL (8.4-10.2)
[2019-04-13 06:57] LABS: Potassium 6.5 mmol/L (3.5-5.1)
[2019-04-13] MEDS ORDERED: SODIUM POLYSTYRENE SULFONATE 15 GM/60 ML BOTTLE PO STA ×2 (07:05→07:17)
[2019-04-13] MEDS ORDERED: FUROSEMIDE 10 MG/ML 10 ML VIAL IV STA (07:06)
[2019-04-13] MEDS ORDERED: INSULIN REGULAR 100 UNIT/ML VIAL IV ONE (07:07)
[2019-04-13] MEDS ORDERED: DEXTROSE 50% SYRINGE 50 ML IVP STA ×2 (07:07→07:54)
[2019-04-13] MEDS ORDERED: DEXTROSE 10 % IN WATER 250 ML IV ONE ×2 (07:15→08:30)
--- NOTE | 2019-04-13 08:31 | P.HPIM ---
History of Present Illness H&P Date: 04/13/19 This is a 63-year-old male with past medical history significant for end-stage renal disease with dialysis Sunday and Sunday, COPD hypertension, hyperlipidemia, GERD, osteoarthritis, and BPH. Patient presented to the emergency room with complaints of shortness of breath, weakness and generalized feeling unwell. Patient states that he had fever and chills for 2 days. Patient states that he has been feeling unwell throughout the day yesterday. He has had nausea and vomiting with diarrhea that is green in color not bloody. After the vomiting and diarrhea patient developed shortness of breath which prompted him to come to the emergency room. Patient was currently being treated for strep throat with oral antibiotics and had completed a 10 day course of antibiotics with no improvement of his symptoms he was subsequently placed on a second antibiotic. Patient's last dialysis was on Sunday where they removed 2 L. Patient is able to make some urine. Patient is sitting up in bed at this time. He has no complaints of of shortness of breath. Patient does complain of generalized weakness and diarrhea that is green in color. Patient denies bloody diarrhea. Patient's to be received today 9.2 down from 11.5 yesterday, hemoglobin 10.9, potassium is 6.5, BUN 66, creatinine 7.47. Stool was negative for C. diff. Chest x-ray shows small bilateral pleural effusion. Lungs otherwise appear clear. Pulmonary vascularity appears within limits. Cardiac silhouette is enlarged. Review of Systems Constitutional: Reports chills, Reports fatigue, Reports fever, Reports weakness Ears, nose, mouth and throat: Reports nasal congestion, Reports nasal discharge, Reports sore throat Cardiovascular: Reports dyspnea on exertion Respiratory: Reports cough, Reports dyspnea Gastrointestinal: Reports diarrhea, Reports nausea, Denies vomiting Genitourinary: Denies dysuria, Denies hematuria Musculoskeletal: Reports muscle weakness, Denies gait dysfunction, Denies limitation of motion Integumentary: Denies lesions, Denies rash, Denies wounds Neurological: Reports weakness, Denies headaches, Denies syncope, Denies vertigo Psychiatric: Denies anxiety, Denies confusion, Denies depression Endocrine: Denies excessive sweating, Denies excessive thirst Past Medical History Past Medical History: COPD, Dialysis, GERD/Reflux, GI Bleed, Hyperlipidemia, Hypertension, Osteoarthritis (OA), Prostate Disorder, Renal Disease Additional Past Medical History / Comment(s): Chronic lower extremity edema, decreased urinary stream lately, 1991 somach ulcer with hematemesis. Renal disease, Hemodialysis M-W-. Hospitaized in January for volume overload.Strep throat-04/11 History of Any Multi-Drug Resistant Organisms: None Reported Past Surgical History: No Surgical Hx Reported, Heart Catheterization, Heart Catheterization With Stent Additional Past Surgical History / Comment(s): EGD, PermCath & renal bx.heart cath/DAWNA 04-26-18, heart cath last week. Fistula placement. # 3stents placed Past Anesthesia/Blood Transfusion Reactions: No Reported Reaction Additional Past Anesthesia/Blood Transfusion Reaction / Comment(s): Pt received blood years ago with his stomach ulcer bleed-no reaction. Date of Last Stent Placement:: 05/28/18 Smoking Status: Former smoker - Past Family History Father Family Medical History: Asthma Additional Family Medical History / Comment(s): Father at the age of 64yrs. Mother Family Medical History: Hypertension, Myocardial Infarction ([place]) Additional Family Medical History / Comment(s): Mother had a [place] sometime prior to age 60yrs. She is 86yrs old. Stent Brother(s) Family Medical History: No Reported History Sister(s) Family Medical History: No Reported History Son(s) Family Medical History: No Reported History Daughter(s) Family Medical History: No Reported History Medications and Allergies Home Medications Medication Instructions Recorded Confirmed Type amLODIPine BESYLATE [Norvasc] 10 mg PO DAILY 01/02/18 04/12/19 History Atorvastatin [Lipitor] 40 mg PO DAILY #30 tab 01/21/18 04/12/19 Rx Metoprolol Tartrate [Lopressor] 12.5 mg PO BID #60 tab 01/21/18 04/12/19 Rx Aspirin [Children's Aspirin] 81 mg PO DAILY 04/26/18 04/12/19 History Furosemide [Lasix] 80 mg PO BID@0900,1600 04/26/18 04/12/19 History Clopidogrel [Plavix] 75 mg PO DAILY 12/06/18 04/12/19 History Isoniazid 300 mg PO DAILY@0445 12/06/18 04/12/19 History Pyridoxine HCl (Vitamin B6) 100 mg PO DAILY 12/06/18 04/12/19 History [Vitamin B-6] Calcium Acetate [PhosLo] 1,334 mg PO AC-TID 04/01/19 04/12/19 History Tamsulosin [Flomax] 0.4 mg PO DAILY 04/01/19 04/12/19 History Baclofen [Lioresal] 5 mg PO BID 04/12/19 04/12/19 History Brimonidine/Dorzolamide/Pf 1 drop LEFT EYE DAILY 04/12/19 04/12/19 History [Brimonidine 0.15%-Dorzolam 2%] Calcium Acetate [Phoslo] 667 mg PO BID 04/12/19 04/12/19 History Nitroglycerin Sl Tabs [Nitrostat] 0.4 mg SUBLINGUAL Q5M PRN 04/12/19 04/12/19 History Penicillin V Potassium [Pen Vee K] 500 mg PO BID 04/12/19 04/12/19 History Allergies Allergy/AdvReac Type Severity Reaction Status Date / Time No Known Allergies Allergy Verified 04/12/19 21:36 Physical Exam Vitals: Vital Signs Temp Pulse Pulse Resp BP BP Pulse Ox 04/13/19 08:25 98 04/13/19 07:47 97.7 F 113 H 19 105/59 99 04/13/19 03:57 85 18 04/13/19 03:53 98 F 85 18 102/64 04/13/19 00:38 97.6 F 64 17 109/69 97 04/13/19 00:00 97.6 F 64 17 109/69 97 04/12/19 23:49 97.6 F 68 18 103/75 99 04/12/19 23:05 103/75 04/12/19 22:44 97.6 F 68 18 87/64 99 04/12/19 22:19 97.9 F 80 18 84/57 98 04/12/19 21:44 88 18 81/56 100 04/12/19 21:28 82 18 99/65 96 04/12/19 21:22 18 04/12/19 21:08 97.5 F L 64 16 73/60 95 Intake and Output 04/12/19 04/13/19 04/13/19 22:59 06:59 14:59 Intake Total 1470.994 100 Balance 1470.994 100 Intake: Intake, IV Titration 970.994 Amount Heparin Sod,Pork in 0.45% 70.994 NaCl 25,000 unit In 0.45 % NaCl 1 250ml.bag @ 12 UNITS/KG/HR 10.07 mls/hr IV .Q24H [facility] Rx#: [id number] Sodium Chloride 0.9% 1, 900 000 ml @ 75 mls/hr IV . [id number] [facility] Rx#:[id number] Oral 500 100 Other: Voiding Method Toilet Urinal # Voids 1 # Bowel Movements 1 Weight 83.915 kg 80.7 kg General Appearance: Alert, cooperative, no distress, appears stated age. Generalized weakness Neck HEENT: Supple, no lymphadenopathy, no thyroid enlargement, no carotid bruits. Lungs: Clear to auscultation without crackles or wheezes no rhonchi, no deformity. Chest Wall: Chest wall normal expansion with deep inspiration no tenderness and no deformity was found on exam, no costochondral pain or discomfort. Heart: Regular rate and rhythm, S1, S2 normal, no murmur, rub or gallop. Back: Symmetric, no curvature, ROM normal, no CVA tenderness. Abdomen: Soft, non-tender, no rebound or rigidity, no hepatosplenomegaly. Extremities: Extremities normal, atraumatic, no cyanosis or edema. Pulses: 2+ and symmetric. Skin: Skin color, texture, tugor normal, no rashes or lesions. Neurologic: Alert oriented x3 cranial nerves II through XII intact, no motor deficit, no abnormal balance or gait Results CBC & Chem 7: 04/13/19 05:55 04/13/19 05:55 Labs: Abnormal Lab Results - Last 24 Hours (Table) 04/12/19 04/12/19 04/13/19 Range/Units 21:40 21:40 05:55 WBC 11.5 H (3.8-10.6) k/uL RBC 4.12 L (4.30-5.90) m/uL Hgb 11.5 L (13.0-17.5) gm/dL Hct 37.7 L (39.0-53.0) % MCHC 30.6 L (31.0-37.0) g/dL RDW 15.8 H (11.5-15.5) % Plt Count 130 L D (150-450) k/uL Neutrophils # 9.9 H (1.3-7.7) k/uL Lymphocytes # 0.7 L (1.0-4.8) k/uL APTT 51.6 H (22.0-30.0) sec Sodium 131 L (137-145) mmol/L Potassium 5.2 H (3.5-5.1) mmol/L Chloride 86 L (98-107) mmol/L BUN 61 H (9-20) mg/dL Creatinine 7.31 H* (0.66-1.25) mg/dL Glucose 171 H (74-99) mg/dL POC Glucose (mg/dL) (75-99) mg/dL Calcium (8.4-10.2) mg/dL ALT 16 L (21-72) U/L 04/13/19 04/13/19 04/13/19 Range/Units 05:55 05:55 06:18 WBC (3.8-10.6) k/uL RBC 3.79 L (4.30-5.90) m/uL Hgb 10.9 L (13.0-17.5) gm/dL Hct 35.5 L (39.0-53.0) % MCHC 30.8 L (31.0-37.0) g/dL RDW 16.7 H (11.5-15.5) % Plt Count 124 L (150-450) k/uL Neutrophils # 7.8 H (1.3-7.7) k/uL Lymphocytes # 0.8 L (1.0-4.8) k/uL APTT (22.0-30.0) sec Sodium 129 L (137-145) mmol/L Potassium 6.5 H* (3.5-5.1) mmol/L Chloride 91 L (98-107) mmol/L BUN 66 H (9-20) mg/dL Creatinine 7.47 H* (0.66-1.25) mg/dL Glucose 135 H (74-99) mg/dL POC Glucose (mg/dL) 127 H (75-99) mg/dL Calcium 8.2 L (8.4-10.2) mg/dL ALT (21-72) U/L Thrombosis Risk Factor Assmnt - Choose All That Apply Each Factor Represents 1 point: Swollen legs (current) Each Risk Factor Represents 2 Points: Age 61-74 years Other congenital or acquired thrombophilia - If yes, enter type in comment: No Thrombosis Risk Factor Assessment Total Risk Factor Score: 3 Thrombosis Risk Factor Assessment Level: Moderate Risk Assessment and Plan Plan: 1. New onset atrial fibrillation with RVR. Cardiology consult appreciated. Continue heparin drip for anticoagulation. Continue metoprolol 12.5 by mouth twice a day. Transition to oral anticoagulant medication. 2. Dehydration with diarrhea. Continue hydration. Stool culture negative for C. diff. 3. End-stage renal failure on dialysis Sunday with graft in left arm. Nephrology consult appreciated. Continue with dialysis. 4. Hyperkalemia. Nephrology consult appreciated. Kayexalate given continue to monitor her potassium is still elevated dialysis. 5. Generalized weakness. Continue hydration. 6. Upper respiratory infection possible strep throat. Chest x-ray negative. Was treated with antibiotics outpatient for 10 days. 7. Latent tuberculosis. Continue isoniazid. 8. Hypertension. Continue metoprolol 9. Hyperlipidemia. Continue Lipitor 40 mg by mouth daily 10. Coronary artery disease with multiple vessel stenting. Continue Lipitor 11. Ischemic cardiomyopathy. Continue metoprolol 12. Osteoarthritis. Continue baclofen 5 mg by mouth twice a day, continue [place] 5/325 one tablet every 6 hours as needed for pain 13. BPH. Continue Flomax 0.4 mg daily 14. Difficulty sleeping. Melatonin 6 mg by mouth at bedtime 15. GI prophylaxis. Protonix 40 mg IV daily 16. DVT prophylaxis. Currently on heparin Discharge plan: Minimum 2 hospital stay Impression and plan of care have been directed as dictated by the signing physician. Anum Hernandez nurse practitioner acting as scribe for eddieing chriss carlisle.
[2019-04-13] MEDS ORDERED: amLODIPine 10 MG TAB PO SCH (09:00)
--- NOTE | 2019-04-13 09:27 | P.CRDCN ---
History of Present Illness Consult date: 04/13/19 Requesting physician: Yesenia Avelar Consult reason: atrial fibrillation Chief complaint: Weakness History of present illness: This is a 63-year-old gentleman who follows with Dr. Dunn in the office. He has a known history of hypertension, hyperlipidemia, family history of coronary artery disease, nicotine dependence, nonrheumatic mitral valve insufficiency, end-stage renal disease on hemodialysis 3 times a week, ischemic cardiomyopathy, patient underwent successful stenting of the proximal LAD first obtuse marginal and mid RCA in May 2018, he is currently receiving treatment for strep throat as an outpatient, for the past 10 days, patient also has history of TB, he presents to the hospital on this admission with symptoms of nausea, frequent diarrhea, and weakness. Chest x-ray performed on admission shows small bilateral pleural effusions and pulmonary vascularity otherwise appears normal. His EKG on presentation here showed atrial fibrillation with moderately rapid ventricular response. Patient has no prior documented history of atrial fibrillation in the past. His blood pressure on admission here 73/60 with a heart rate in the 60s, 95% on room air. Pressure this morning 105/60 with a heart rate of 90, 99% on 3 L of oxygen. White blood cell count on arrival 11.5, hemoglobin 11.5, platelet count 1:30. Sodium 131, potassium 5.2, BUN 61, creatinine 7.3, troponin 0.015. This morning's labs, white blood cell count 9.2, hemoglobin 10.9, platelet count 124. Sodium 129, potassium 0.5, BUN 66, 7.4 creatinine. At the time of my examination this morning, patient complains of feeling very weak and achy all over, continues to have frequent diarrhea stools, denies any chest discomfort, mildly short of breath. Past Medical History Past Medical History: COPD, Dialysis, GERD/Reflux, GI Bleed, Hyperlipidemia, Hypertension, Osteoarthritis (OA), Prostate Disorder, Renal Disease Additional Past Medical History / Comment(s): Chronic lower extremity edema, decreased urinary stream lately, 1992 somach ulcer with hematemesis. Renal disease, Hemodialysis --. Hospitaized in January for volume overload.Strep throat-04/11 History of Any Multi-Drug Resistant Organisms: None Reported Past Surgical History: No Surgical Hx Reported, Heart Catheterization, Heart Catheterization With Stent Additional Past Surgical History / Comment(s): EGD, PermCath & renal bx.heart cath/DAWNA 04-26-18, heart cath last week. Fistula placement. # 3stents placed Past Anesthesia/Blood Transfusion Reactions: No Reported Reaction Additional Past Anesthesia/Blood Transfusion Reaction / Comment(s): Pt received blood years ago with his stomach ulcer bleed-no reaction. Date of Last Stent Placement:: 05/28/18 Smoking Status: Former smoker - Past Family History Father Family Medical History: Asthma Additional Family Medical History / Comment(s): Father at the age of 64yrs. Mother Family Medical History: Hypertension, Myocardial Infarction ([place]) Additional Family Medical History / Comment(s): Mother had a [place] sometime prior to age 60yrs. She is 86yrs old. Stent Brother(s) Family Medical History: No Reported History Sister(s) Family Medical History: No Reported History Son(s) Family Medical History: No Reported History Daughter(s) Family Medical History: No Reported History Medications and Allergies Home Medications Medication Instructions Recorded Confirmed Type amLODIPine BESYLATE [Norvasc] 10 mg PO DAILY 01/02/18 04/12/19 History Atorvastatin [Lipitor] 40 mg PO DAILY #30 tab 01/21/18 04/12/19 Rx Metoprolol Tartrate [Lopressor] 12.5 mg PO BID #60 tab 01/21/18 04/12/19 Rx Aspirin [Children's Aspirin] 81 mg PO DAILY 04/26/18 04/12/19 History Furosemide [Lasix] 80 mg PO BID@0900,1600 04/26/18 04/12/19 History Clopidogrel [Plavix] 75 mg PO DAILY 12/06/18 04/12/19 History Isoniazid 300 mg PO DAILY@0445 12/06/18 04/12/19 History Pyridoxine HCl (Vitamin B6) 100 mg PO DAILY 12/06/18 04/12/19 History [Vitamin B-6] Calcium Acetate [PhosLo] 1,334 mg PO AC-TID 04/01/19 04/12/19 History Tamsulosin [Flomax] 0.4 mg PO DAILY 04/01/19 04/12/19 History Baclofen [Lioresal] 5 mg PO BID 04/12/19 04/12/19 History Brimonidine/Dorzolamide/Pf 1 drop LEFT EYE DAILY 04/12/19 04/12/19 History [Brimonidine 0.15%-Dorzolam 2%] Calcium Acetate [Phoslo] 667 mg PO BID 04/12/19 04/12/19 History Nitroglycerin Sl Tabs [Nitrostat] 0.4 mg SUBLINGUAL Q5M PRN 04/12/19 04/12/19 History Penicillin V Potassium [Pen Vee K] 500 mg PO BID 04/12/19 04/12/19 History Allergies Allergy/AdvReac Type Severity Reaction Status Date / Time No Known Allergies Allergy Verified 04/12/19 21:36 Physical Exam Vitals: Vital Signs Temp Pulse Pulse Resp BP BP Pulse Ox 04/13/19 08:25 98 04/13/19 07:47 97.7 F 113 H 19 105/59 99 04/13/19 03:57 85 18 04/13/19 03:53 98 F 85 18 102/64 04/13/19 00:38 97.6 F 64 17 109/69 97 04/13/19 00:00 97.6 F 64 17 109/69 97 04/12/19 23:49 97.6 F 68 18 103/75 99 04/12/19 23:05 103/75 04/12/19 22:44 97.6 F 68 18 87/64 99 04/12/19 22:19 97.9 F 80 18 84/57 98 04/12/19 21:44 88 18 81/56 100 04/12/19 21:28 82 18 99/65 96 04/12/19 21:22 18 04/12/19 21:08 97.5 F L 64 16 73/60 95 Intake and Output 04/12/19 04/13/19 04/13/19 22:59 06:59 14:59 Intake Total 1470.994 100 Balance 1470.994 100 Intake: Intake, IV Titration 970.994 Amount Heparin Sod,Pork in 0.45% 70.994 NaCl 25,000 unit In 0.45 % NaCl 1 250ml.bag @ 12 UNITS/KG/HR 10.07 mls/hr IV .Q24H [facility] Rx#: [id number] Sodium Chloride 0.9% 1, 900 000 ml @ 75 mls/hr IV . [id number] [facility] Rx#:[id number] Oral 500 100 Other: Voiding Method Toilet Urinal # Voids 1 # Bowel Movements 1 Weight 83.915 kg 80.7 kg PHYSICAL EXAMINATION: GENERAL: 63-year-old gentleman in no acute distress at the time of my examination HEENT: Head is atraumatic, normocephalic. Pupils equal, round. Sclera anicteric. Conjunctiva are clear. Mucous membranes of the mouth are moist. Neck is supple. There is no elevated jugular venous pressure. No carotid bruit is heard. HEART EXAMINATION: Heart S1-S2 at II/ systolic ejection murmur is heard at the base with radiation to the neck, II/ holosystolic murmur heard at the apex CHEST EXAMINATION: Lungs reveal mild diminished air entry to bilateral bases. ABDOMEN: Soft, nontender. Bowel sounds are heard. No organomegaly noted. EXTREMITIES: 2+ peripheral pulses with evidence of peripheral edema and no calf tenderness noted. NEUROLOGIC patient is awake, alert and oriented 3 . . Results 04/13/19 05:55 04/13/19 05:55 Cardiac Enzymes 04/12/19 04/12/19 Range/Units 21:40 23:07 AST 39 (17-59) U/L Troponin I 0.015 (0.000-0.034) ng/mL Coagulation 04/12/19 04/13/19 Range/Units 21:40 05:55 PT 11.5 (9.0-12.0) sec APTT 29.9 51.6 H (22.0-30.0) sec CBC 04/12/19 04/13/19 Range/Units 21:40 05:55 WBC 11.5 H 9.2 (3.8-10.6) k/uL RBC 4.12 L 3.79 L (4.30-5.90) m/uL Hgb 11.5 L 10.9 L (13.0-17.5) gm/dL Hct 37.7 L 35.5 L (39.0-53.0) % Plt Count 130 L D 124 L (150-450) k/uL Comprehensive Metabolic Panel 04/12/19 04/13/19 Range/Units 21:40 05:55 Sodium 131 L 129 L (137-145) mmol/L Potassium 5.2 H 6.5 H* (3.5-5.1) mmol/L Chloride 86 L 91 L (98-107) mmol/L Carbon Dioxide 26 23 (22-30) mmol/L BUN 61 H 66 H (9-20) mg/dL Creatinine 7.31 H* 7.47 H* (0.66-1.25) mg/dL Glucose 171 H 135 H (74-99) mg/dL Calcium 8.8 8.2 L (8.4-10.2) mg/dL AST 39 (17-59) U/L ALT 16 L (21-72) U/L Alkaline Phosphatase 123 (38-126) U/L Total Protein 6.7 (6.3-8.2) g/dL Albumin 4.1 (3.5-5.0) g/dL Current Medications Generic Name Dose Route Start Last Admin Trade Name Freq PRN Reason Stop Dose Admin Acetaminophen 650 mg 04/12/19 23:12 04/13/19 01:18 Tylenol Tab PO 650 mg Q6HR PRN Administration Mild Pain or Fever > 100.5 Hydrocodone Bitart/Acetaminophen 1 each 04/13/19 04:12 04/13/19 04:31 [place] 5-325 PO 1 each Q6HR PRN Administration Pain Amlodipine Besylate 10 mg 04/13/19 09:00 Norvasc PO DAILY [facility] Atorvastatin Calcium 40 mg 04/13/19 09:00 Lipitor PO DAILY [facility] Baclofen 5 mg 04/13/19 09:00 Lioresal PO BID [facility] Heparin Sodium (Porcine) 0 unit 04/12/19 23:05 04/12/19 23:33 Heparin IV 5,000 unit PER PROTOCOL PRN Administration Low PTT Protocol Heparin Sodium/Sodium Chloride 250 mls @ 10.07 mls/hr 04/12/19 23:15 04/13/19 06:38 25,000 unit/ Sodium Chloride IV 12 units/kg/hr .Q24H [facility] 10.07 mls/hr Titration Protocol 12 UNITS/KG/HR Sodium Chloride 1,000 mls @ 75 mls/hr 04/12/19 23:15 04/13/19 01:03 Saline 0.9% IV Not Given .[id number] [facility] Isoniazid 300 mg 04/13/19 04:45 04/13/19 04:38 Isoniazid PO 300 mg DAILY@0445 [facility] Administration Metoprolol Tartrate 12.5 mg 04/13/19 09:00 Lopressor PO BID [facility] Naloxone HCl 0.2 mg 04/12/19 23:12 Narcan IV Q2M PRN Opioid Reversal Non-Formulary Medication 1 drop 04/13/19 09:00 Brimonidine/Dorzolamide/Pf [Brimonidine 0.15%-Dorzolam 2%] LEFT EYE DAILY [facility] Pyridoxine HCl 100 mg 04/13/19 04:45 04/13/19 04:38 Vitamin B-6 PO 100 mg DAILY@0445 [facility] Administration Sodium Polystyrene Sulfonate 15 gm 04/13/19 13:00 Kayexalate PO 04/13/19 13:01 ONCE ONE Tamsulosin HCl 0.4 mg 04/13/19 09:00 Flomax PO DAILY [facility] Intake and Output 04/12/19 04/13/19 04/13/19 22:59 06:59 14:59 Intake Total 1470.994 100 Balance 1470.994 100 Intake: Intake, IV Titration 970.994 Amount Heparin Sod,Pork in 0.45% 70.994 NaCl 25,000 unit In 0.45 % NaCl 1 250ml.bag @ 12 UNITS/KG/HR 10.07 mls/hr IV .Q24H [facility] Rx#: [id number] Sodium Chloride 0.9% 1, 900 000 ml @ 75 mls/hr IV . [id number] [facility] Rx#:[id number] Oral 500 100 Other: Voiding Method Toilet Urinal # Voids 1 # Bowel Movements 1 Weight 83.915 kg 80.7 kg 04/13/19 05:55 04/13/19 05:55 EKG Interpretations (text) EKG shows atrial fibrillation with moderately rapid ventricular response Assessment and Plan Plan: Assessment and plan #1 symptoms of progressive weakness with associated nausea and frequent diarrhea stools #2 strep throat, patient has been on antibiotics as an outpatient for the past 10 days #3 new-onset atrial fibrillation #4 hypertension #5 hyperlipidemia #6 coronary artery disease with multivessel stenting #7 nicotine dependence #8 non-rheumatic mitral valve insufficiency #9 ischemic cardiomyopathy #10 end-stage renal disease on hemodialysis 3 times a week Plan Patients most recent echo was performed performed on April 02 of this year revealed an ejection fraction of 55-60%, mild to moderate tricuspid regurgitation, moderate pulmonary hypertension. Patient is currently on IV heparin, it was explained to the patient this morning that he will require anticoagulation for stroke prevention. We will check into coverage for Eliquis for him. His heart rate this morning is in the 80s, we will continue with the metoprolol at 12-1/2 mg by mouth twice a day and if necessary increase the dose, patient is hypotensive, we will monitor this closely. We will discontinue the Norvasc. Check a TSH level and further recommendations to follow. DNP note has been reviewed, I agree with a documented findings and plan of care. Patient was seen and examined.
--- NOTE | 2019-04-13 09:50 | P.NPCON ---
History of Present Illness - Reason for Consult Consult date: 04/13/19 end stage renal disease - Chief Complaint Shortness of breath - History of Present Illness This is a 63-year-old gentleman known to us with ESRD on dialysis Sunday ay Sunday. He had his dialysis on Sunday last 2 days ago, in the evening postdialysis he had some sore throat went to a physician's office and was prescribed some kind of penicillin after taking that he started to have diaphoresis and diarrhea. He is not aware of any ALLERGIES to penicillin. He does feel short of breath and currently is on oxygen nasal cannula. An EKG shows atrial fibrillation which is supposedly new He denies any chest pain. He has mild cough and might have been febrile at home. He is known with hypertension, hyperlipidemia, family history of coronary artery disease, nicotine dependence, nonrheumatic mitral valve insufficiency, ischemic cardiomyopathy, patient underwent successful stenting of the proximal LAD first obtuse marginal and mid RCA in May 2018, he is currently receiving treatment for strep throat as an outpatient, for the past 10 days, He is also known with history of TB, Admission Chest x-ray performed on admission shows small bilateral pleural effusions and pulmonary vascularity otherwise appears normal. His EKG on presentation here showed atrial fibrillation with moderately rapid ventricular response. Patient has no prior documented history of atrial fibrillation in the past Past Medical History Past Medical History: COPD, Dialysis, GERD/Reflux, GI Bleed, Hyperlipidemia, Hypertension, Osteoarthritis (OA), Prostate Disorder, Renal Disease Additional Past Medical History / Comment(s): Chronic lower extremity edema, decreased urinary stream lately, 1992 somach ulcer with hematemesis. Renal disease, Hemodialysis . Hospitaized in January for volume overload.Strep throat-04/11 History of Any Multi-Drug Resistant Organisms: None Reported Past Surgical History: No Surgical Hx Reported, Heart Catheterization, Heart Catheterization With Stent Additional Past Surgical History / Comment(s): EGD, PermCath & renal bx.heart cath/DAWNA 04-26-18, heart cath last week. Fistula placement. # 3stents placed Past Anesthesia/Blood Transfusion Reactions: No Reported Reaction Additional Past Anesthesia/Blood Transfusion Reaction / Comment(s): Pt received blood years ago with his stomach ulcer bleed-no reaction. Date of Last Stent Placement:: 05/28/18 Smoking Status: Former smoker - Past Family History Father Family Medical History: Asthma Additional Family Medical History / Comment(s): Father at the age of 64yrs. Mother Family Medical History: Hypertension, Myocardial Infarction ([place]) Additional Family Medical History / Comment(s): Mother had a [place] sometime prior to age 60yrs. She is 86yrs old. Stent Brother(s) Family Medical History: No Reported History Sister(s) Family Medical History: No Reported History Son(s) Family Medical History: No Reported History Daughter(s) Family Medical History: No Reported History Medications and Allergies Home Medications Medication Instructions Recorded Confirmed Type amLODIPine BESYLATE [Norvasc] 10 mg PO DAILY 01/02/18 04/12/19 History Atorvastatin [Lipitor] 40 mg PO DAILY #30 tab 01/21/18 04/12/19 Rx Metoprolol Tartrate [Lopressor] 12.5 mg PO BID #60 tab 01/21/18 04/12/19 Rx Aspirin [Children's Aspirin] 81 mg PO DAILY 04/26/18 04/12/19 History Furosemide [Lasix] 80 mg PO BID@0900,1600 04/26/18 04/12/19 History Clopidogrel [Plavix] 75 mg PO DAILY 12/06/18 04/12/19 History Isoniazid 300 mg PO DAILY@0445 12/06/18 04/12/19 History Pyridoxine HCl (Vitamin B6) 100 mg PO DAILY 12/06/18 04/12/19 History [Vitamin B-6] Calcium Acetate [PhosLo] 1,334 mg PO AC-TID 04/01/19 04/12/19 History Tamsulosin [Flomax] 0.4 mg PO DAILY 04/01/19 04/12/19 History Baclofen [Lioresal] 5 mg PO BID 04/12/19 04/12/19 History Brimonidine/Dorzolamide/Pf 1 drop LEFT EYE DAILY 04/12/19 04/12/19 History [Brimonidine 0.15%-Dorzolam 2%] Calcium Acetate [Phoslo] 667 mg PO BID 04/12/19 04/12/19 History Nitroglycerin Sl Tabs [Nitrostat] 0.4 mg SUBLINGUAL Q5M PRN 04/12/19 04/12/19 History Penicillin V Potassium [Pen Vee K] 500 mg PO BID 04/12/19 04/12/19 History Allergies Allergy/AdvReac Type Severity Reaction Status Date / Time No Known Allergies Allergy Verified 04/12/19 21:36 Physical Exam Vitals: Vital Signs Temp Pulse Pulse Resp BP BP Pulse Ox 04/13/19 08:25 98 04/13/19 07:47 97.7 F 113 H 19 105/59 99 04/13/19 03:57 85 18 04/13/19 03:53 98 F 85 18 102/64 04/13/19 00:38 97.6 F 64 17 109/69 97 04/13/19 00:00 97.6 F 64 17 109/69 97 04/12/19 23:49 97.6 F 68 18 103/75 99 04/12/19 23:05 103/75 04/12/19 22:44 97.6 F 68 18 87/64 99 04/12/19 22:19 97.9 F 80 18 84/57 98 04/12/19 21:44 88 18 81/56 100 04/12/19 21:28 82 18 99/65 96 04/12/19 21:22 18 04/12/19 21:08 97.5 F L 64 16 73/60 95 Intake and Output 04/12/19 04/13/19 04/13/19 22:59 06:59 14:59 Intake Total 1470.994 100 Balance 1470.994 100 Intake: Intake, IV Titration 970.994 Amount Heparin Sod,Pork in 0.45% 70.994 NaCl 25,000 unit In 0.45 % NaCl 1 250ml.bag @ 12 UNITS/KG/HR 10.07 mls/hr IV .Q24H [facility] Rx#: [id number] Sodium Chloride 0.9% 1, 900 000 ml @ 75 mls/hr IV . [id number] [facility] Rx#:[id number] Oral 500 100 Other: Voiding Method Toilet Urinal # Voids 1 # Bowel Movements 1 Weight 83.915 kg 80.7 kg On examination is awake alert oriented comfortable on nasal cannula Mildly short of breath on exertion HEENT exam no JVP neck is supple no facial asymmetry Lungs are clear to auscultation with good air entry bilaterally no wheezing was. No rub. Heart sounds are unremarkable except for atrial fibrillation Abdomen soft nontender no masses felt Extremity exam was no edema Is awake alert oriented His extremities are warm to touch. Results - Lab Results Most recent lab results Calcium 8.2 mg/dL (8.4-10.2) L 04/13/19 05:55 04/13/19 05:55 04/13/19 05:55 Assessment and Plan Assessment: Impression 1. ESRD on dialysis Sunday was a Sunday with the graft in his left upper arm 2. Admitted with shortness of breath, diarrhea after taking penicillin for an upper respiratory infection possible strep throat as per patient's history. Vicky st x-ray was unremarkable, he has new onset of atrial fibrillation. Troponins are normal at this time 3. Past history of coronary artery disease, with stenting in the past. Cardiac cath 2017 showed a right ventricular pressure within normal range. 4. History of GI bleed. 5. Hyperkalemia here in the hospital cause not very clear no GI bleed. Hemoglobin was 11.5 on 04/12/2019 down to 10.9 today. 6. Mild hyponatremia sodium is 129 blood sugars are slightly high in the 135- 171 range. This hyponatremia is related to the excess free water in a patient without any renal function. Recommendation 1. I'm treating him conservatively for the hyperkalemia. If it does not get controlled by a this afternoon we'll dialyze him today. 2. Cardiology is following him up for the new onset atrial fibrillation. 3. Watch for GI bleed as he has had history of GI bleed in the past. 4. Obtain blood gases if he remains short of breath. Possibility of PE should be considered. Thank you for this consultation and we'll continue to follow closely with you
[2019-04-13] MEDS: BRIMONIDINE LEFT EYE SCH (10:59)
[2019-04-13] MEDS: DORZOLAMIDE LEFT EYE SCH (10:59)
[2019-04-13] MEDS: METOPROLOL TARTRATE 12.5 MG TAB PO SCH ×2 (11:04→20:13)
[2019-04-13] MEDS: ATORVASTATIN 40 MG TAB PO SCH (11:04)
[2019-04-13] MEDS: TAMSULOSIN 0.4 MG CAP.ER.24H PO SCH (11:04)
[2019-04-13] MEDS: BACLOFEN 10 MG TAB PO SCH ×2 (11:04→20:13)
[2019-04-13 11:48] LABS: Glucose,Whole Blood 135 mg/dL (75-99)
[2019-04-13] MEDS ORDERED: SODIUM POLYSTYRENE SULFONATE 15 GM/60 ML BOTTLE PO ONE (13:00)
[2019-04-13] MEDS: CALCIUM ACETATE 667 MG CAP PO SCH ×2 (13:07→17:30)
[2019-04-13 17:10] LABS: Glucose,Whole Blood 145 mg/dL (75-99)
[2019-04-13 21:55] LABS: Glucose,Whole Blood 133 mg/dL (75-99)
[2019-04-13] MEDS: HEPARIN SOD,PORK IN 0.45% NACL 25,000 UNIT in 0.45% NACL 1 250ML.BAG IV SCH (22:01)
[2019-04-13] MEDS: MELATONIN 3 MG TABLET PO SCH (22:52)
[2019-04-13 23:00] LABS: Glucose,Whole Blood 133 mg/dL (75-99)
[2019-04-13] MEDS: SUCRALFATE 1 GM TAB PO SCH (23:38)
[2019-04-14 02:12] LABS: Glucose,Whole Blood 124 mg/dL (75-99)
[2019-04-14] MEDS: SODIUM CHLORIDE 0.9% 1,000 ML IV SCH ×2 (02:17→16:53)
[2019-04-14] MEDS: ISONIAZID 100 MG TABLET PO SCH (04:28)
[2019-04-14] MEDS: PYRIDOXINE 50 MG TAB PO SCH (04:29)
[2019-04-14] MEDS: HYDROcodone/APAP 5-325MG 1 EACH TAB PO PRN (05:14)
[2019-04-14 06:36] LABS: Glucose,Whole Blood 108 mg/dL (75-99)
[2019-04-14 06:50] LABS: Anisocytosis Slight; Basophils % (A) 0 %; Eosinophils % (A) 0 %; HCT 32.9 % (39.0-53.0); HGB 10.4 gm/dL (13.0-17.5); Hypochromasia Slight; Lymphocytes # (A) 0.7 k/uL (1.0-4.8); Lymphocytes % (A) 5 %; MCH 29.5 pg (25.0-35.0); MCHC 31.6 g/dL (31.0-37.0); MCV 93.4 fL (80.0-100.0); Mean Platelet Volume 10.9; Monocytes # (A) 0.7 k/uL (0-1.0); Monocytes % (A) 5 %; Neutrophils # (A) 12.3 k/uL (1.3-7.7); Neutrophils % (A) 89 %; Platelet Count 131 k/uL (150-450); RBC 3.52 m/uL (4.30-5.90); WBC 13.8 k/uL (3.8-10.6)
[2019-04-14 07:08] LABS: Albumin 3.2 g/dL (3.5-5.0); Calcium 8.6 mg/dL (8.4-10.2); Total Bilirubin 0.7 mg/dL (0.2-1.3); Total Protein 5.4 g/dL (6.3-8.2)
[2019-04-14 07:39] LABS: Potassium 6.1 mmol/L (3.5-5.1)
[2019-04-14] MEDS: METOPROLOL TARTRATE 12.5 MG TAB PO SCH ×2 (08:47→21:34)
[2019-04-14] MEDS: TAMSULOSIN 0.4 MG CAP.ER.24H PO SCH (08:47)
[2019-04-14] MEDS: BACLOFEN 10 MG TAB PO SCH ×2 (08:47→21:34)
[2019-04-14] MEDS: ATORVASTATIN 40 MG TAB PO SCH (08:47)
[2019-04-14] MEDS: CALCIUM ACETATE 667 MG CAP PO SCH ×2 (08:47→16:56)
[2019-04-14] MEDS: SUCRALFATE 1 GM TAB PO SCH ×3 (08:48→16:55)
[2019-04-14] MEDS: BRIMONIDINE LEFT EYE SCH (08:48)
[2019-04-14] MEDS: PANTOPRAZOLE 40 MG/10 ML VIAL IVP SCH (08:48)
[2019-04-14] MEDS: DORZOLAMIDE LEFT EYE SCH (08:48)
[2019-04-14] MEDS ORDERED: MIDODRINE 5 MG TAB PO PRN (10:59)
[2019-04-14] MEDS: ACETAMINOPHEN TAB 325 MG TAB PO PRN (11:23)
--- NOTE | 2019-04-14 11:53 | P.PN ---
Subjective Patient is seen in follow-up for her incisional disease. He is maintained on hemodialysis on a Sunday schedule. Currently seen while undergoing hemodialysis. Patient was diagnosed with new onset A. fib with RVR. He is currently maintained on heparin drip. He is now on oral Lopressor. No chest pain. Does admit to dyspnea. Vital signs are stable. General: The patient appeared well nourished and normally developed. HEENT: Head exam is unremarkable. Neck is without jugular venous distension. LUNGS: Lungs are clear to auscultation and percussion. Breath sounds decreased. HEART: Rate and Rhythm are regular. First and second heart sounds normal. No murmurs, rubs or gallops. ABDOMEN: Abdominal exam reveals normal bowel sounds. Non-tender and non- distended. No evidence of peritonitis. EXTREMITITES: No clubbing, cyanosis, or edema. Objective - Vital Signs Vital signs: Vital Signs Temp 97.6 F 04/14/19 11:12 Pulse 66 04/14/19 11:12 Resp 20 04/14/19 11:12 BP 80/58 04/14/19 11:12 Pulse Ox 96 04/14/19 11:12 Intake & Output 04/13/19 04/14/19 04/14/19 18:59 06:59 18:59 Intake Total 200 654.91 246.043 Balance 200 654.91 246.043 Weight 88.9 kg Intake: Intake, IV Titration 154.91 126.043 Amount Heparin Sod,Pork in 0.45% 154.91 126.043 NaCl 25,000 unit In 0.45 % NaCl 1 250ml.bag @ 12 UNITS/KG/HR 10.07 mls/hr IV .Q24H [facility] Rx#: [id number] Oral 200 500 120 Other: Voiding Method Toilet Toilet Urinal Urinal # Voids 3 # Bowel Movements 1 2 - Labs CBC & Chem 7: 04/14/19 05:48 04/14/19 05:48 Labs: Abnormal Lab Results - Last 24 Hours (Table) 04/13/19 04/13/19 04/13/19 Range/Units 11:38 14:03 16:51 WBC (3.8-10.6) k/uL RBC (4.30-5.90) m/uL Hgb (13.0-17.5) gm/dL Hct (39.0-53.0) % RDW (11.5-15.5) % Plt Count (150-450) k/uL Neutrophils # (1.3-7.7) k/uL Lymphocytes # (1.0-4.8) k/uL APTT (22.0-30.0) sec Sodium (137-145) mmol/L Potassium 6.1 H* (3.5-5.1) mmol/L Chloride (98-107) mmol/L Carbon Dioxide (22-30) mmol/L BUN (9-20) mg/dL Creatinine (0.66-1.25) mg/dL Glucose (74-99) mg/dL POC Glucose (mg/dL) 135 H 145 H (75-99) mg/dL AST (17-59) U/L ALT (21-72) U/L Total Protein (6.3-8.2) g/dL Albumin (3.5-5.0) g/dL 04/13/19 04/13/19 04/14/19 Range/Units 21:53 22:58 02:10 WBC (3.8-10.6) k/uL RBC (4.30-5.90) m/uL Hgb (13.0-17.5) gm/dL Hct (39.0-53.0) % RDW (11.5-15.5) % Plt Count (150-450) k/uL Neutrophils # (1.3-7.7) k/uL Lymphocytes # (1.0-4.8) k/uL APTT (22.0-30.0) sec Sodium (137-145) mmol/L Potassium (3.5-5.1) mmol/L Chloride (98-107) mmol/L Carbon Dioxide (22-30) mmol/L BUN (9-20) mg/dL Creatinine (0.66-1.25) mg/dL Glucose (74-99) mg/dL POC Glucose (mg/dL) 133 H 133 H 124 H (75-99) mg/dL AST (17-59) U/L ALT (21-72) U/L Total Protein (6.3-8.2) g/dL Albumin (3.5-5.0) g/dL 04/14/19 04/14/19 04/14/19 Range/Units 05:48 05:48 05:48 WBC 13.8 H (3.8-10.6) k/uL RBC 3.52 L (4.30-5.90) m/uL Hgb 10.4 L (13.0-17.5) gm/dL Hct 32.9 L (39.0-53.0) % RDW 16.0 H (11.5-15.5) % Plt Count 131 L (150-450) k/uL Neutrophils # 12.3 H (1.3-7.7) k/uL Lymphocytes # 0.7 L (1.0-4.8) k/uL APTT 39.4 H (22.0-30.0) sec Sodium 133 L (137-145) mmol/L Potassium 6.1 H* (3.5-5.1) mmol/L Chloride 94 L (98-107) mmol/L Carbon Dioxide 19 L (22-30) mmol/L BUN 65 H (9-20) mg/dL Creatinine 7.78 H* (0.66-1.25) mg/dL Glucose 113 H (74-99) mg/dL POC Glucose (mg/dL) (75-99) mg/dL AST 3520 H (17-59) U/L ALT 415 H (21-72) U/L Total Protein 5.4 L (6.3-8.2) g/dL Albumin 3.2 L (3.5-5.0) g/dL 04/14/19 Range/Units 06:34 WBC (3.8-10.6) k/uL RBC (4.30-5.90) m/uL Hgb (13.0-17.5) gm/dL Hct (39.0-53.0) % RDW (11.5-15.5) % Plt Count (150-450) k/uL Neutrophils # (1.3-7.7) k/uL Lymphocytes # (1.0-4.8) k/uL APTT (22.0-30.0) sec Sodium (137-145) mmol/L Potassium (3.5-5.1) mmol/L Chloride (98-107) mmol/L Carbon Dioxide (22-30) mmol/L BUN (9-20) mg/dL Creatinine (0.66-1.25) mg/dL Glucose (74-99) mg/dL POC Glucose (mg/dL) 108 H (75-99) mg/dL AST (17-59) U/L ALT (21-72) U/L Total Protein (6.3-8.2) g/dL Albumin (3.5-5.0) g/dL Microbiology - Last 24 Hours (Table) 04/12/19 21:40 Blood Culture - Preliminary Blood No Growth after 24 hours Assessment and Plan Plan: Assessment: 1. End-stage renal disease maintained on hemodialysis on a Sunday schedule. 2. A. fib with RVR maintained on Lopressor and heparin drip. Cardiology following. 3. Hyperkalemia secondary to chronic kidney disease. Expect improvement post dialysis. 4. Chronic kidney disease mineral bone disease maintained on PhosLo. 5. 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 6. Patient has history of hypertension but is now actually hypotensive. This is new for the patient. Can be due to new onset of A. fib. 7. Hyponatremia secondary to chronic kidney disease. Mildly hypervolemic. 8. Metabolic acidosis secondary to chronic kidney disease. Expect improvement postdialysis. Plan: Currently seen while undergoing hemodialysis. Next treatment on Sunday. Midodrine 10 mg once now.
[2019-04-14 12:13] LABS: Glucose,Whole Blood 106 mg/dL (75-99)
--- NOTE | 2019-04-14 12:41 | P.PN ---
Subjective Progress Note Date: 04/14/19 This is a 63-year-old gentleman who follows with Dr. Dunn in the office. He has a known history of hypertension, hyperlipidemia, family history of coronary artery disease, nicotine dependence, nonrheumatic mitral valve insufficiency, end-stage renal disease on hemodialysis 3 times a week, ischemic cardiomyopathy, patient underwent successful stenting of the proximal LAD first obtuse marginal and mid RCA in May 2018, he is currently receiving treatment for strep throat as an outpatient, for the past 10 days, patient also has history of TB, he presents to the hospital on this admission with symptoms of nausea, frequent diarrhea, and weakness. Chest x-ray performed on admission shows small bilateral pleural effusions and pulmonary vascularity otherwise appears normal. His EKG on presentation here showed atrial fibrillation with moderately rapid ventricular response. Patient has no prior documented history of atrial fibrillation in the past. His blood pressure on admission here 73/60 with a heart rate in the 60s, 95% on room air. Pressure this morning 105/60 with a heart rate of 90, 99% on 3 L of oxygen. White blood cell count on arrival 11.5, hemoglobin 11.5, platelet count 1:30. Sodium 131, potassium 5.2, BUN 61, creatinine 7.3, troponin 0.015. This morning's labs, white blood cell count 9.2, hemoglobin 10.9, platelet count 124. Sodium 129, potassium 0.5, BUN 66, 7.4 creatinine. At the time of my examination this morning, patient complains of feeling very weak and achy all over, continues to have frequent diarrhea stools, denies any chest discomfort, mildly short of breath. 04/14/2019 Patient was seen and examined this morning, continues to feel weak, sleepy, undergoing dialysis at present. Blood pressure this morning 92/50 with a heart rate in the 70s, afebrile, 97% on 3 L of oxygen. White blood cell count 13.8, hemoglobin 10.4, platelet count 131. Sodium 133, potassium 6.1, BUN 65 and creatinine 7.7. AST on admission 39, 3520 today, ALT on admission 16, 415 today. Objective - Vital Signs Vital signs: Vital Signs Temp 97.6 F 04/14/19 11:12 Pulse 66 04/14/19 11:12 Resp 20 04/14/19 11:12 BP 80/58 04/14/19 11:12 Pulse Ox 96 04/14/19 11:12 Intake & Output 04/13/19 04/14/19 04/14/19 18:59 06:59 18:59 Intake Total 200 654.91 246.043 Balance 200 654.91 246.043 Weight 88.9 kg Intake: Intake, IV Titration 154.91 126.043 Amount Heparin Sod,Pork in 0.45% 154.91 126.043 NaCl 25,000 unit In 0.45 % NaCl 1 250ml.bag @ 12 UNITS/KG/HR 10.07 mls/hr IV .Q24H [facility] Rx#: [id number] Oral 200 500 120 Other: Voiding Method Toilet Toilet Urinal Urinal # Voids 3 # Bowel Movements 1 2 - Exam PHYSICAL EXAMINATION: GENERAL: 63-year-old gentleman in no acute distress at the time of my examination HEENT: Head is atraumatic, normocephalic. Pupils equal, round. Sclera anicteric. Conjunctiva are clear. Mucous membranes of the mouth are moist. Neck is supple. There is no elevated jugular venous pressure. No carotid bruit is heard. HEART EXAMINATION: Heart S1-S2 at II/ systolic ejection murmur is heard at the base with radiation to the neck, II/ holosystolic murmur heard at the apex CHEST EXAMINATION: Lungs reveal mild diminished air entry to bilateral bases. ABDOMEN: Soft, nontender. Bowel sounds are heard. No organomegaly noted. EXTREMITIES: 2+ peripheral pulses with evidence of peripheral edema and no calf tenderness noted. NEUROLOGIC patient is awake, alert and oriented 3 . - Labs CBC & Chem 7: 04/14/19 05:48 04/14/19 05:48 Labs: Abnormal Lab Results - Last 24 Hours (Table) 04/13/19 04/13/19 04/13/19 Range/Units 14:03 16:51 21:53 WBC (3.8-10.6) k/uL RBC (4.30-5.90) m/uL Hgb (13.0-17.5) gm/dL Hct (39.0-53.0) % RDW (11.5-15.5) % Plt Count (150-450) k/uL Neutrophils # (1.3-7.7) k/uL Lymphocytes # (1.0-4.8) k/uL APTT (22.0-30.0) sec Sodium (137-145) mmol/L Potassium 6.1 H* (3.5-5.1) mmol/L Chloride (98-107) mmol/L Carbon Dioxide (22-30) mmol/L BUN (9-20) mg/dL Creatinine (0.66-1.25) mg/dL Glucose (74-99) mg/dL POC Glucose (mg/dL) 145 H 133 H (75-99) mg/dL AST (17-59) U/L ALT (21-72) U/L Total Protein (6.3-8.2) g/dL Albumin (3.5-5.0) g/dL 04/13/19 04/14/19 04/14/19 Range/Units 22:58 02:10 05:48 WBC 13.8 H (3.8-10.6) k/uL RBC 3.52 L (4.30-5.90) m/uL Hgb 10.4 L (13.0-17.5) gm/dL Hct 32.9 L (39.0-53.0) % RDW 16.0 H (11.5-15.5) % Plt Count 131 L (150-450) k/uL Neutrophils # 12.3 H (1.3-7.7) k/uL Lymphocytes # 0.7 L (1.0-4.8) k/uL APTT (22.0-30.0) sec Sodium (137-145) mmol/L Potassium (3.5-5.1) mmol/L Chloride (98-107) mmol/L Carbon Dioxide (22-30) mmol/L BUN (9-20) mg/dL Creatinine (0.66-1.25) mg/dL Glucose (74-99) mg/dL POC Glucose (mg/dL) 133 H 124 H (75-99) mg/dL AST (17-59) U/L ALT (21-72) U/L Total Protein (6.3-8.2) g/dL Albumin (3.5-5.0) g/dL 04/14/19 04/14/19 04/14/19 Range/Units 05:48 05:48 06:34 WBC (3.8-10.6) k/uL RBC (4.30-5.90) m/uL Hgb (13.0-17.5) gm/dL Hct (39.0-53.0) % RDW (11.5-15.5) % Plt Count (150-450) k/uL Neutrophils # (1.3-7.7) k/uL Lymphocytes # (1.0-4.8) k/uL APTT 39.4 H (22.0-30.0) sec Sodium 133 L (137-145) mmol/L Potassium 6.1 H* (3.5-5.1) mmol/L Chloride 94 L (98-107) mmol/L Carbon Dioxide 19 L (22-30) mmol/L BUN 65 H (9-20) mg/dL Creatinine 7.78 H* (0.66-1.25) mg/dL Glucose 113 H (74-99) mg/dL POC Glucose (mg/dL) 108 H (75-99) mg/dL AST 3520 H (17-59) U/L ALT 415 H (21-72) U/L Total Protein 5.4 L (6.3-8.2) g/dL Albumin 3.2 L (3.5-5.0) g/dL 04/14/19 Range/Units 12:01 WBC (3.8-10.6) k/uL RBC (4.30-5.90) m/uL Hgb (13.0-17.5) gm/dL Hct (39.0-53.0) % RDW (11.5-15.5) % Plt Count (150-450) k/uL Neutrophils # (1.3-7.7) k/uL Lymphocytes # (1.0-4.8) k/uL APTT (22.0-30.0) sec Sodium (137-145) mmol/L Potassium (3.5-5.1) mmol/L Chloride (98-107) mmol/L Carbon Dioxide (22-30) mmol/L BUN (9-20) mg/dL Creatinine (0.66-1.25) mg/dL Glucose (74-99) mg/dL POC Glucose (mg/dL) 106 H (75-99) mg/dL AST (17-59) U/L ALT (21-72) U/L Total Protein (6.3-8.2) g/dL Albumin (3.5-5.0) g/dL Microbiology - Last 24 Hours (Table) 04/12/19 21:40 Blood Culture - Preliminary Blood No Growth after 24 hours Assessment and Plan Plan: Assessment and plan #1 symptoms of progressive weakness with associated nausea and frequent diarrhea stools #2 strep throat, patient has been on antibiotics as an outpatient for the past 10 days #3 new-onset atrial fibrillation #4 hypertension #5 hyperlipidemia #6 coronary artery disease with multivessel stenting #7 nicotine dependence #8 non-rheumatic mitral valve insufficiency #9 ischemic cardiomyopathy #10 end-stage renal disease on hemodialysis 3 times a week Plan Patients most recent echo was performed performed on April 02 of this year revealed an ejection fraction of 55-60%, mild to moderate tricuspid regurgitation, moderate pulmonary hypertension. Patient is currently on IV heparin, it was explained to the patient this morning that he will require anticoagulation for stroke prevention. Will await the results of the repeat echocardiogram with Doppler study. Significant rise in the patient's LFTs today. We will discontinue the Lipitor. DNP note has been reviewed, I agree with a documented findings and plan of care. Patient was seen and examined.
--- NOTE | 2019-04-14 15:10 | P.PN ---
Subjective Progress Note Date: 04/14/19 This is a 63-year-old male with past medical history significant for end-stage renal disease with dialysis Sunday and Sunday, COPD hypertension, hyperlipidemia, GERD, osteoarthritis, and BPH. Patient presented to the emergency room with complaints of shortness of breath, weakness and generalized feeling unwell. Patient states that he had fever and chills for 2 days. Patient states that he has been feeling unwell throughout the day yesterday. He has had nausea and vomiting with diarrhea that is green in color not bloody. After the vomiting and diarrhea patient developed shortness of breath which prompted him to come to the emergency room. Patient was currently being treated for strep throat with oral antibiotics and had completed a 10 day course of antibiotics with no improvement of his symptoms he was subsequently placed on a second antibiotic. Patient's last dialysis was on Sunday where they removed 2 L. Patient is able to make some urine. Patient is sitting up in bed at this time. He has no complaints of of shortness of breath. Patient does complain of generalized weakness and diarrhea that is green in color. Patient denies bloody diarrhea. Patient's to be received today 9.2 down from 11.5 yesterday, hemoglobin 10.9, potassium is 6.5, BUN 66, creatinine 7.47. Stool was negative for C. diff. Chest x-ray shows small bilateral pleural effusion. Lungs otherwise appear clear. Pulmonary vascularity appears within limits. Cardiac silhouette is enlarged. 04/14: Patient is currently undergoing hemodialysis. Apparently yesterday he was only able to tolerate one and a half hours due to low blood pressure. Nephrology started him on midodrine. Patient complains of feeling weak. He denies any chest pain or palpitations. Repeat lab work reveals Vandana BC 13.8, hemoglobin 10.4, platelet count 131. Sodium 133, potassium 6.1, chloride 94, CO2 19, BUN 65 and creatinine 7.78. Blood sugars been running between 106 and 133. Noted that his AST jumped up to 3520, ALT 415. A kind phosphatase 116. Acute hepatitis panel and ultrasound of the abdomen have been ordered. Repeat CMP ordered for 3 PM and repeat again in the morning. Patient is also followed by cardiology with plan for anticoagulation and repeat echocardiogram has been ordered. Lipitor was discontinued. Review of Systems Constitutional: Reports chills, Reports fatigue, Reports fever, Reports generalized weakness Ears, nose, mouth and throat: Reports nasal congestion, Reports nasal discharge, Reports sore throat Cardiovascular: Reports dyspnea on exertion Respiratory: Reports cough, Reports dyspnea Gastrointestinal: Reports diarrhea, Reports nausea, Denies vomiting Genitourinary: Denies dysuria, Denies hematuria Musculoskeletal: Reports muscle weakness, Denies gait dysfunction, Denies limit ation of motion Integumentary: Denies lesions, Denies rash, Denies wounds Neurological: Reports weakness, Denies headaches, Denies syncope, Denies vertigo Psychiatric: Denies anxiety, Denies confusion, Denies depression Endocrine: Denies excessive sweating, Denies excessive thirst Objective - Vital Signs Vital signs: Vital Signs Temp 97.7 F 04/14/19 08:00 Pulse 79 04/14/19 08:00 Resp 20 04/14/19 08:00 BP 92/51 04/14/19 08:00 Pulse Ox 97 04/14/19 08:00 Intake & Output 04/13/19 04/14/19 04/14/19 18:59 06:59 18:59 Intake Total 200 654.91 120 Balance 200 654.91 120 Weight 88.9 kg Intake: Intake, IV Titration 154.91 Amount Heparin Sod,Pork in 0.45% 154.91 NaCl 25,000 unit In 0.45 % NaCl 1 250ml.bag @ 12 UNITS/KG/HR 10.07 mls/hr IV .Q24H FENG Rx#: [id number] Oral 200 500 120 Other: Voiding Method Toilet Toilet Urinal Urinal # Voids 3 # Bowel Movements 1 2 - Exam General Appearance: Alert, cooperative, no distress, appears stated age. Generalized weakness Neck HEENT: Supple, no lymphadenopathy, no thyroid enlargement, no carotid bruits. Lungs: Clear to auscultation without crackles or wheezes no rhonchi, no deformity. Chest Wall: Chest wall normal expansion with deep inspiration no tenderness and no deformity was found on exam, no costochondral pain or discomfort. Heart: Regular rate and rhythm, S1, S2 normal, no murmur, rub or gallop. Back: Symmetric, no curvature, ROM normal, no CVA tenderness. Abdomen: Soft, non-tender, no rebound or rigidity, no hepatosplenomegaly. Extremities: Extremities normal, atraumatic, no cyanosis or edema. Pulses: 2+ and symmetric. Skin: Skin color, texture, tugor normal, no rashes or lesions. Neurologic: Alert oriented x3 cranial nerves II through XII intact, no motor deficit, no abnormal balance or gait - Labs CBC & Chem 7: 04/14/19 05:48 04/14/19 05:48 Labs: Abnormal Lab Results - Last 24 Hours (Table) 04/13/19 04/13/19 04/13/19 Range/Units 11:38 14:03 16:51 WBC (3.8-10.6) k/uL RBC (4.30-5.90) m/uL Hgb (13.0-17.5) gm/dL Hct (39.0-53.0) % RDW (11.5-15.5) % Plt Count (150-450) k/uL Neutrophils # (1.3-7.7) k/uL Lymphocytes # (1.0-4.8) k/uL APTT (22.0-30.0) sec Sodium (137-145) mmol/L Potassium 6.1 H* (3.5-5.1) mmol/L Chloride (98-107) mmol/L Carbon Dioxide (22-30) mmol/L BUN (9-20) mg/dL Creatinine (0.66-1.25) mg/dL Glucose (74-99) mg/dL POC Glucose (mg/dL) 135 H 145 H (75-99) mg/dL AST (17-59) U/L ALT (21-72) U/L Total Protein (6.3-8.2) g/dL Albumin (3.5-5.0) g/dL 04/13/19 04/13/19 04/14/19 Range/Units 21:53 22:58 02:10 WBC (3.8-10.6) k/uL RBC (4.30-5.90) m/uL Hgb (13.0-17.5) gm/dL Hct (39.0-53.0) % RDW (11.5-15.5) % Plt Count (150-450) k/uL Neutrophils # (1.3-7.7) k/uL Lymphocytes # (1.0-4.8) k/uL APTT (22.0-30.0) sec Sodium (137-145) mmol/L Potassium (3.5-5.1) mmol/L Chloride (98-107) mmol/L Carbon Dioxide (22-30) mmol/L BUN (9-20) mg/dL Creatinine (0.66-1.25) mg/dL Glucose (74-99) mg/dL POC Glucose (mg/dL) 133 H 133 H 124 H (75-99) mg/dL AST (17-59) U/L ALT (21-72) U/L Total Protein (6.3-8.2) g/dL Albumin (3.5-5.0) g/dL 04/14/19 04/14/19 04/14/19 Range/Units 05:48 05:48 05:48 WBC 13.8 H (3.8-10.6) k/uL RBC 3.52 L (4.30-5.90) m/uL Hgb 10.4 L (13.0-17.5) gm/dL Hct 32.9 L (39.0-53.0) % RDW 16.0 H (11.5-15.5) % Plt Count 131 L (150-450) k/uL Neutrophils # 12.3 H (1.3-7.7) k/uL Lymphocytes # 0.7 L (1.0-4.8) k/uL APTT 39.4 H (22.0-30.0) sec Sodium 133 L (137-145) mmol/L Potassium 6.1 H* (3.5-5.1) mmol/L Chloride 94 L (98-107) mmol/L Carbon Dioxide 19 L (22-30) mmol/L BUN 65 H (9-20) mg/dL Creatinine 7.78 H* (0.66-1.25) mg/dL Glucose 113 H (74-99) mg/dL POC Glucose (mg/dL) (75-99) mg/dL AST 3520 H (17-59) U/L ALT 415 H (21-72) U/L Total Protein 5.4 L (6.3-8.2) g/dL Albumin 3.2 L (3.5-5.0) g/dL 04/14/19 Range/Units 06:34 WBC (3.8-10.6) k/uL RBC (4.30-5.90) m/uL Hgb (13.0-17.5) gm/dL Hct (39.0-53.0) % RDW (11.5-15.5) % Plt Count (150-450) k/uL Neutrophils # (1.3-7.7) k/uL Lymphocytes # (1.0-4.8) k/uL APTT (22.0-30.0) sec Sodium (137-145) mmol/L Potassium (3.5-5.1) mmol/L Chloride (98-107) mmol/L Carbon Dioxide (22-30) mmol/L BUN (9-20) mg/dL Creatinine (0.66-1.25) mg/dL Glucose (74-99) mg/dL POC Glucose (mg/dL) 108 H (75-99) mg/dL AST (17-59) U/L ALT (21-72) U/L Total Protein (6.3-8.2) g/dL Albumin (3.5-5.0) g/dL Microbiology - Last 24 Hours (Table) 04/12/19 21:40 Blood Culture - Preliminary Blood No Growth after 24 hours Assessment and Plan Plan: 1. New onset atrial fibrillation with RVR, probable paroxysmal atrial fibrillation. Cardiology consult appreciated. Continue heparin drip for anticoagulation. Continue metoprolol 12.5 by mouth twice a day. Transition to oral anticoagulant medication. 2. Dehydration with diarrhea. Continue hydration. Stool culture negative for C. diff. 3. End-stage renal failure on dialysis Sunday with graft in left arm. Nephrology consult appreciated. Continue with dialysis. 4. Hyperkalemia. Nephrology consult appreciated. Kayexalate given continue to monitor her potassium is still elevated dialysis. 5. Generalized weakness. Continue hydration. 6. Upper respiratory infection possible strep throat. Chest x-ray negative. Was treated with antibiotics outpatient for 10 days. 7. Latent tuberculosis. Continue isoniazid. 8. Hypertension. Continue metoprolol 9. Hyperlipidemia. Continue Lipitor 40 mg by mouth daily 10. Coronary artery disease with multiple vessel stenting. Continue Lipitor 11. Ischemic cardiomyopathy. Continue metoprolol 12. Osteoarthritis. Continue baclofen 5 mg by mouth twice a day, continue [place] 5/325 one tablet every 6 hours as needed for pain 13. BPH. Continue Flomax 0.4 mg daily 14. Difficulty sleeping. Melatonin 6 mg by mouth at bedtime 15. GI prophylaxis. Protonix 40 mg IV daily 16. DVT prophylaxis. Currently on heparin 17. Elevated liver function tests. Statin discontinued. Recheck a CMP this afternoon and again tomorrow morning. Acute hepatitis panel ordered and ultrasound of the liver. Discharge plan: Most likely return home. Impression and plan of care have been directed as dictated by the signing physician. Anita Amaya nurse practitioner acting as scribe for signing giorgio andre.
[2019-04-14 16:52] LABS: Albumin 3.2 g/dL (3.5-5.0); Calcium 8.7 mg/dL (8.4-10.2); Potassium 5.1 mmol/L (3.5-5.1); Total Bilirubin 0.8 mg/dL (0.2-1.3); Total Protein 5.4 g/dL (6.3-8.2)
[2019-04-14 17:22] LABS: Glucose,Whole Blood 97 mg/dL (75-99)
--- NOTE | 2019-04-14 18:36 | ECHOF ---
Referral Reason:afib MEASUREMENTS -------- HEIGHT: 165.1 cm WEIGHT: 88.5 kg BP: 123/70 FINDINGS -------- Atrial fibrillation. Echo 04/02/19 Limited Study for AFIB. There is a moderate, generalized pericardial effusion present. CONCLUSIONS -------- 1. Atrial fibrillation. 2. Echo 04/02/19 Limited Study for AFIB. 3. There is a moderate, generalized pericardial effusion present. DIRECTOR OF EARLY CHILDHOOD: Radha Guzman RDCS
[2019-04-14] MEDS ORDERED: ENOXAPARIN 100 MG/ML SYRINGE SQ SCH (21:00)
[2019-04-14 21:15] LABS: Glucose,Whole Blood 148 mg/dL (75-99)
[2019-04-14] MEDS: MELATONIN 3 MG TABLET PO SCH (23:31)
[2019-04-15 02:25] LABS: Glucose,Whole Blood 131 mg/dL (75-99)
[2019-04-15] MEDS: SODIUM CHLORIDE 0.9% 1,000 ML IV SCH ×2 (04:35→17:15)
[2019-04-15] MEDS: PYRIDOXINE 50 MG TAB PO SCH (04:35)
[2019-04-15] MEDS: ISONIAZID 100 MG TABLET PO SCH (04:35)
[2019-04-15 06:03] LABS: Glucose,Whole Blood 127 mg/dL (75-99)
[2019-04-15 06:31] LABS: Albumin 2.9 g/dL (3.5-5.0); Calcium 8.1 mg/dL (8.4-10.2); Potassium 5.2 mmol/L (3.5-5.1); Total Bilirubin 0.6 mg/dL (0.2-1.3)
[2019-04-15 06:46] LABS: Anisocytosis Slight; Basophils % (A) 0 %; Eosinophils # (A) 0.1 k/uL (0-0.7); Eosinophils % (A) 1 %; HCT 31.6 % (39.0-53.0); HGB 9.9 gm/dL (13.0-17.5); Hypochromasia Moderate; Lymphocytes % (A) 8 %; MCH 29.6 pg (25.0-35.0); MCHC 31.3 g/dL (31.0-37.0); MCV 94.4 fL (80.0-100.0); Monocytes # (A) 0.5 k/uL (0-1.0); Monocytes % (A) 4 %; Neutrophils % (A) 86 %; Platelet Count 152 k/uL (150-450); RBC 3.35 m/uL (4.30-5.90); RDW 16.8 % (11.5-15.5); WBC 12.7 k/uL (3.8-10.6)
--- NOTE | 2019-04-15 08:10 | US ---
"EXAMINATION TYPE: US abdomen limited DATE OF EXAM: 04/15/2019 COMPARISON: NONE CLINICAL HISTORY: elevated LFT. EXAM MEASUREMENTS: Liver Length: 18.8 cm Gallbladder Wall: 1.0 cm CBD: 0.5 cm Right Kidney: 8.9 x 4.2 x 4.3 cm Pancreas: not visualized due to midline bowel gas Liver: wnl Gallbladder: thickened wall, possible cholecystic fluid, difficult to tell due to free fluid Evidence for sonographic Enciso's sign: Yes CBD: wnl Right Kidney: atrophic Incidental note is made of free fluid Incidental note is made of right pleural effusion. IMPRESSION: 1. Findings are concerning for chronic cholecystitis with gallbladder wall thickening, small amount o f surrounding ascites/pericholecystic fluid, and positive sonographic Enciso sign. However no common bile duct enlargement is seen at this time. HIDA scan is recommended versus surgical consultation in the appropriate clinical setting. 2. Medical renal disease of the right kidney with cortical thinning. 3. Partially visualized right pleural effusion. 4. Heterogenous hepatic echotexture most commonly related to hepatic steatosis however other hepatoce llular diseases are possible. Correlate with liver function test results. A Yellow level critical message alert has been initiated for Vince Strickland via the [employer] tical Results System on 04/15/2019 8:07 AM. This message alert has been sent to Vince Strickland via the pr eferences provided by the clinician for the receipt of Radiology Critical Findings. Message ID [id number]."
[2019-04-15] MEDS: PANTOPRAZOLE 40 MG/10 ML VIAL IVP SCH (08:19)
[2019-04-15] MEDS: CALCIUM ACETATE 667 MG CAP PO SCH ×2 (09:35→17:15)
[2019-04-15] MEDS: SUCRALFATE 1 GM TAB PO SCH ×3 (09:36→17:15)
[2019-04-15] MEDS ORDERED: MIDODRINE 5 MG TAB PO PRN (09:50)
[2019-04-15] MEDS: DORZOLAMIDE LEFT EYE SCH (09:51)
[2019-04-15] MEDS: BRIMONIDINE LEFT EYE SCH (09:51)
[2019-04-15] MEDS: METOPROLOL TARTRATE 12.5 MG TAB PO SCH ×2 (10:08→20:42)
[2019-04-15] MEDS: BACLOFEN 10 MG TAB PO SCH ×2 (10:08→20:42)
[2019-04-15] MEDS: TAMSULOSIN 0.4 MG CAP.ER.24H PO SCH (10:08)
--- NOTE | 2019-04-15 10:45 | P.PN ---
Subjective Patient is seen in follow-up for end-stage renal disease. He is maintained on hemodialysis on a Sunday schedule. Patient was diagnosed with new onset A. fib with RVR. He is currently maintained on heparin drip. He is now on oral Lopressor. No chest pain. Does admit to dyspnea. Blood pressures on the lower side. Patient could not tolerate much ultrafiltration yesterday due to hypotension. Vital signs are stable. General: The patient appeared well nourished and normally developed. HEENT: Head exam is unremarkable. Neck is without jugular venous distension. LUNGS: Breath sounds decreased. HEART: Rate and Rhythm are regular. First and second heart sounds normal. No murmurs, rubs or gallops. ABDOMEN: Abdominal exam reveals normal bowel sounds. Non-tender and non- distended. No evidence of peritonitis. EXTREMITITES: No clubbing, cyanosis, or edema. Objective - Vital Signs Vital signs: Vital Signs Temp 98.5 F 04/15/19 07:45 Pulse 76 04/15/19 07:45 Resp 18 04/15/19 07:45 BP 107/60 04/15/19 07:45 Pulse Ox 92 L 04/15/19 07:45 Intake & Output 04/14/19 04/15/19 04/15/19 18:59 06:59 18:59 Intake Total 836.043 410.346 360 Output Total 686 0 Balance 150.043 410.346 360 Weight 89.7 kg Intake: Intake, IV Titration 176.043 110.346 Amount Heparin Sod,Pork in 0.45% 126.043 110.346 NaCl 25,000 unit In 0.45 % NaCl 1 250ml.bag @ 12 UNITS/KG/HR 10.07 mls/hr IV .Q24H FENG Rx#: [id number] Sodium Chloride 0.9% 1, 50 000 ml @ 75 mls/hr IV . [id number] FENG Rx#:[id number] Oral 360 300 360 Hemodialysis 300 Output: Urine 0 0 Hemodialysis 686 Other: Voiding Method Toilet Urinal - Labs CBC & Chem 7: 04/15/19 05:40 04/15/19 05:40 Labs: Abnormal Lab Results - Last 24 Hours (Table) 04/14/19 04/14/19 04/14/19 Range/Units 12:01 16:06 16:06 WBC (3.8-10.6) k/uL RBC (4.30-5.90) m/uL Hgb (13.0-17.5) gm/dL Hct (39.0-53.0) % RDW (11.5-15.5) % Neutrophils # (1.3-7.7) k/uL APTT 34.0 H (22.0-30.0) sec Sodium 135 L (137-145) mmol/L Potassium (3.5-5.1) mmol/L Chloride 92 L (98-107) mmol/L BUN 40 H (9-20) mg/dL Creatinine 4.92 H (0.66-1.25) mg/dL Glucose (74-99) mg/dL POC Glucose (mg/dL) 106 H (75-99) mg/dL Calcium (8.4-10.2) mg/dL AST 6472 H (17-59) U/L ALT 780 H (21-72) U/L Alkaline Phosphatase (38-126) U/L Total Protein 5.4 L (6.3-8.2) g/dL Albumin 3.2 L (3.5-5.0) g/dL 04/14/19 04/15/19 04/15/19 Range/Units 21:13 02:03 05:40 WBC 12.7 H (3.8-10.6) k/uL RBC 3.35 L (4.30-5.90) m/uL Hgb 9.9 L (13.0-17.5) gm/dL Hct 31.6 L (39.0-53.0) % RDW 16.8 H (11.5-15.5) % Neutrophils # 11.0 H (1.3-7.7) k/uL APTT (22.0-30.0) sec Sodium (137-145) mmol/L Potassium (3.5-5.1) mmol/L Chloride (98-107) mmol/L BUN (9-20) mg/dL Creatinine (0.66-1.25) mg/dL Glucose (74-99) mg/dL POC Glucose (mg/dL) 148 H 131 H (75-99) mg/dL Calcium (8.4-10.2) mg/dL AST (17-59) U/L ALT (21-72) U/L Alkaline Phosphatase (38-126) U/L Total Protein (6.3-8.2) g/dL Albumin (3.5-5.0) g/dL 04/15/19 04/15/19 Range/Units 05:40 05:59 WBC (3.8-10.6) k/uL RBC (4.30-5.90) m/uL Hgb (13.0-17.5) gm/dL Hct (39.0-53.0) % RDW (11.5-15.5) % Neutrophils # (1.3-7.7) k/uL APTT (22.0-30.0) sec Sodium 132 L (137-145) mmol/L Potassium 5.2 H (3.5-5.1) mmol/L Chloride 95 L (98-107) mmol/L BUN 63 H (9-20) mg/dL Creatinine 6.65 H (0.66-1.25) mg/dL Glucose 116 H (74-99) mg/dL POC Glucose (mg/dL) 127 H (75-99) mg/dL Calcium 8.1 L (8.4-10.2) mg/dL AST 4403 H (17-59) U/L ALT 661 H (21-72) U/L Alkaline Phosphatase 130 H (38-126) U/L Total Protein 5.0 L (6.3-8.2) g/dL Albumin 2.9 L (3.5-5.0) g/dL Microbiology - Last 24 Hours (Table) 04/12/19 21:40 Blood Culture - Preliminary Blood No Growth after 48 hours Assessment and Plan Plan: Assessment: 1. End-stage renal disease maintained on hemodialysis on a Sunday schedule. 2. A. fib with RVR maintained on Lopressor and heparin drip. Cardiology following. 3. Hyperkalemia secondary to chronic kidney disease. Expect improvement post dialysis. 4. Chronic kidney disease mineral bone disease maintained on PhosLo. 5. 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 6. Patient has history of hypertension but is now actually hypotensive. This is new for the patient. Can be due to new onset of A. fib. 7. Hyponatremia secondary to chronic kidney disease. Currently hypervolemic. 8. Metabolic acidosis secondary to chronic kidney disease. Better postdialysis. 9. Transaminitis possibly due to hypotension. Abdominal ultrasound revealed chronic cholecystitis with gallbladder thickening. Surgery and GI has been consulted. Plan: Extra hemodialysis treatment today mostly for ultrafiltration. Another treatme nt tomorrow per his outpatient schedule. Midodrine 10 mg to be given if systolic blood pressure less than 100.
[2019-04-15] MEDS ORDERED: HEPARIN SODIUM,PORCINE 5,000 UNIT/ML 1 ML VIAL IV PRN (11:05)
[2019-04-15] MEDS ORDERED: HEPARIN SODIUM,PORCINE 5,000 UNIT/ML 1 ML VIAL IV ONE (11:15)
[2019-04-15] MEDS: HEPARIN SOD,PORK IN 0.45% NACL 25,000 UNIT in 0.45% NACL 1 250ML.BAG IV SCH (11:27)
[2019-04-15 11:32] LABS: INR 1.7 (<1.2); Partial Thromboplastin Time 34.8 sec (22.0-30.0); Prothrombin Time 16.9 sec (9.0-12.0)
--- NOTE | 2019-04-15 11:59 | P.CONS ---
History of Present Illness - Reason for Consult Consult date: 04/15/19 ERCP evaluation elevated liver enzymes Requesting physician: Vince Strickland - Chief Complaint Fatigue weakness shortness of breath - History of Present Illness 63-year-old gentleman end-stage renal disease hemodialysis dependent admitted with generalized weakness nausea diarrhea with development of elevated liver enzymes. Patient was recently placed on antibiotics for sore throat possible strep throat. Past medical history of ischemic cardiomyopathy, hyperlipidemia, hypertension, CAD with PCI stent, tuberculosis. Patient denies abdominal pain. No history of known liver disorders. No history of ETOH abuse. He developed A. fib with RVR on 04/13/2019 receiving intravenous heparin. Presently receiving dialysis; dialysis nurse reports blood pressures in the systolic 70's the other day and presently running in the mid 80's. Ultrasound abdomen concerning for chronic cholecystitis with gallbladder wall thickening, gallbladder wall 1 cm with small amount of surrounding ascites pericholecystic fluid and positive Enciso sign. CBD 0.5 cm. Admission total bilirubin 0.5. AST 39. ALT 16. BP 123. BUN 61. Creatinine 7.3 Yesterday AST increased 6472 from 3520. ALT 780. AP 125. Total bilirubin 0.8. Today total bilirubin 0.6. AST improved 4403. ALT improved 661. AP 130. BUN 63. Creatinine 6.6. White count 12.7. Hemoglobin 9.9. Platelet 152. Hep atitis screen nonreactive. BUN 63. Creatinine 6.6. Vital signs reviewed systolic blood pressures in the 80s over the last few days. Review of Systems Constitutional: Denies fever, chills, sweats, weight gain, or loss. Admitted with fatigue weakness. HEENT: Negative for migraines, blurred vision or loss, earaches, drainage, tinnitus, oral mucosal lesions, dysphagia, or odynophagia. Cardiac: Negative for chest pain, arrhythmias, or palpitation. Respiratory: Negative for shortness of breath, hemoptysis, cough, or sputum production. Gastrointestinal: See HPI for pertinent findings. Genitourinary: Negative for hematuria, urgency, frequency, polyuria, dysuria, or penile discharge. Musculoskeletal: Negative for muscle aches, swelling, arthritis, and arthra lgias. Neurologic: Negative for stroke or TIA. Endocrine: Negative for thyroid problems. Skin: Negative for rash or itching. Psychiatric: Negative history for depression and anxiety Past Medical History Past Medical History: COPD, Dialysis, GERD/Reflux, GI Bleed, Hyperlipidemia, Hypertension, Osteoarthritis (OA), Prostate Disorder, Renal Disease Additional Past Medical History / Comment(s): Chronic lower extremity edema, decreased urinary stream lately, 1991 somach ulcer with hematemesis. Renal disease, Hemodialysis M-W-F. Hospitaized in January for volume overload.Strep throat-04/11 History of Any Multi-Drug Resistant Organisms: None Reported Past Surgical History: No Surgical Hx Reported, Heart Catheterization, Heart Catheterization With Stent Additional Past Surgical History / Comment(s): EGD, PermCath & renal bx.heart cath/DAWNA 04-26-18, heart cath last week. Fistula placement. # 3stents placed Past Anesthesia/Blood Transfusion Reactions: No Reported Reaction Additional Past Anesthesia/Blood Transfusion Reaction / Comm: Pt received blood years ago with his stomach ulcer bleed-no reaction. Date of Last Stent Placement:: 05/28/18 Smoking Status: Former smoker - Past Family History Father Family Medical History: Asthma Additional Family Medical History / Comment(s): Father at the age of 64yrs. Mother Family Medical History: Hypertension, Myocardial Infarction ([place]) Additional Family Medical History / Comment(s): Mother had a [place] sometime prior to age 60yrs. She is 86yrs old. Stent Brother(s) Family Medical History: No Reported History Sister(s) Family Medical History: No Reported History Son(s) Family Medical History: No Reported History Daughter(s) Family Medical History: No Reported History Medications and Allergies Home Medications Medication Instructions Recorded Confirmed Type amLODIPine BESYLATE [Norvasc] 10 mg PO DAILY 01/02/18 04/12/19 History Atorvastatin [Lipitor] 40 mg PO DAILY #30 tab 01/21/18 04/12/19 Rx Metoprolol Tartrate [Lopressor] 12.5 mg PO BID #60 tab 01/21/18 04/12/19 Rx Aspirin [Children's Aspirin] 81 mg PO DAILY 04/26/18 04/12/19 History Furosemide [Lasix] 80 mg PO BID@0900,1600 04/26/18 04/12/19 History Clopidogrel [Plavix] 75 mg PO DAILY 12/06/18 04/12/19 History Isoniazid 300 mg PO DAILY@0445 12/06/18 04/12/19 History Pyridoxine HCl (Vitamin B6) 100 mg PO DAILY 12/06/18 04/12/19 History [Vitamin B-6] Calcium Acetate [PhosLo] 1,334 mg PO AC-TID 04/01/19 04/12/19 History Tamsulosin [Flomax] 0.4 mg PO DAILY 04/01/19 04/12/19 History Baclofen [Lioresal] 5 mg PO BID 04/12/19 04/12/19 History Brimonidine/Dorzolamide/Pf 1 drop LEFT EYE DAILY 04/12/19 04/12/19 History [Brimonidine 0.15%-Dorzolam 2%] Calcium Acetate [Phoslo] 667 mg PO BID 04/12/19 04/12/19 History Nitroglycerin Sl Tabs [Nitrostat] 0.4 mg SUBLINGUAL Q5M PRN 04/12/19 04/12/19 History Penicillin V Potassium [Pen Vee K] 500 mg PO BID 04/12/19 04/12/19 History Allergies Allergy/AdvReac Type Severity Reaction Status Date / Time No Known Allergies Allergy Verified 04/12/19 21:36 Physical Exam Vitals: Vital Signs Temp Pulse Resp BP Pulse Ox 04/15/19 07:45 98.5 F 76 18 107/60 92 L 04/15/19 03:37 69 18 94/57 93 L 04/15/19 03:34 69 18 04/14/19 23:37 82 18 04/14/19 23:33 97.5 F L 82 18 115/75 96 04/14/19 20:00 97.5 F L 83 17 106/55 95 04/14/19 16:58 95 04/14/19 14:35 95.6 F L 68 14 115/52 Intake and Output 04/14/19 04/15/19 04/15/19 22:59 06:59 14:59 Intake Total 350.346 300 360 Output Total 0 Balance 350.346 300 360 Intake: Intake, IV Titration 110.346 Amount Heparin Sod,Pork in 0.45% 110.346 NaCl 25,000 unit In 0.45 % NaCl 1 250ml.bag @ 12 UNITS/KG/HR 10.07 mls/hr IV .Q24H [facility] Rx#: [id number] Oral 240 300 360 Output: Urine 0 Other: Voiding Method Toilet Toilet Urinal Urinal Weight 89.7 kg General appearance: The patient is alert, oriented, in no acute distress. HET: Head is normocephalic and atraumatic. Pupils are equal and reactive. Orop harynx is clear without lesions. Neck: Supple without lymphadenopathy. Trachea midline. Heart: S1 S2. Regular rate and rhythm. Lungs: No crackles or wheezes are heard. Abdomen: Soft, nontender, nondistended with bowel sounds. No peritoneal signs. No palpable organomegaly or masses. Extremities: Normal skin color and turgor. No cyanosis, rash, ulceration, clubbing, or edema. Radial and pedal pulses are 2/4 bilaterally. Neurological: No focal deficits. Strength and sensation are grossly intact. Results CBC & Chem 7: 04/15/19 05:40 04/15/19 05:40 Labs: Abnormal Lab Results - Last 24 Hours (Table) 04/14/19 04/14/19 04/14/19 Range/Units 12:01 16:06 16:06 WBC (3.8-10.6) k/uL RBC (4.30-5.90) m/uL Hgb (13.0-17.5) gm/dL Hct (39.0-53.0) % RDW (11.5-15.5) % Neutrophils # (1.3-7.7) k/uL APTT 34.0 H (22.0-30.0) sec Sodium 135 L (137-145) mmol/L Potassium (3.5-5.1) mmol/L Chloride 92 L (98-107) mmol/L BUN 40 H (9-20) mg/dL Creatinine 4.92 H (0.66-1.25) mg/dL Glucose (74-99) mg/dL POC Glucose (mg/dL) 106 H (75-99) mg/dL Calcium (8.4-10.2) mg/dL AST 6472 H (17-59) U/L ALT 780 H (21-72) U/L Alkaline Phosphatase (38-126) U/L Total Protein 5.4 L (6.3-8.2) g/dL Albumin 3.2 L (3.5-5.0) g/dL 04/14/19 04/15/19 04/15/19 Range/Units 21:13 02:03 05:40 WBC 12.7 H (3.8-10.6) k/uL RBC 3.35 L (4.30-5.90) m/uL Hgb 9.9 L (13.0-17.5) gm/dL Hct 31.6 L (39.0-53.0) % RDW 16.8 H (11.5-15.5) % Neutrophils # 11.0 H (1.3-7.7) k/uL APTT (22.0-30.0) sec Sodium (137-145) mmol/L Potassium (3.5-5.1) mmol/L Chloride (98-107) mmol/L BUN (9-20) mg/dL Creatinine (0.66-1.25) mg/dL Glucose (74-99) mg/dL POC Glucose (mg/dL) 148 H 131 H (75-99) mg/dL Calcium (8.4-10.2) mg/dL AST (17-59) U/L ALT (21-72) U/L Alkaline Phosphatase (38-126) U/L Total Protein (6.3-8.2) g/dL Albumin (3.5-5.0) g/dL 04/15/19 04/15/19 Range/Units 05:40 05:59 WBC (3.8-10.6) k/uL RBC (4.30-5.90) m/uL Hgb (13.0-17.5) gm/dL Hct (39.0-53.0) % RDW (11.5-15.5) % Neutrophils # (1.3-7.7) k/uL APTT (22.0-30.0) sec Sodium 132 L (137-145) mmol/L Potassium 5.2 H (3.5-5.1) mmol/L Chloride 95 L (98-107) mmol/L BUN 63 H (9-20) mg/dL Creatinine 6.65 H (0.66-1.25) mg/dL Glucose 116 H (74-99) mg/dL POC Glucose (mg/dL) 127 H (75-99) mg/dL Calcium 8.1 L (8.4-10.2) mg/dL AST 4403 H (17-59) U/L ALT 661 H (21-72) U/L Alkaline Phosphatase 130 H (38-126) U/L Total Protein 5.0 L (6.3-8.2) g/dL Albumin 2.9 L (3.5-5.0) g/dL Microbiology - Last 24 Hours (Table) 04/12/19 21:40 Blood Culture - Preliminary Blood No Growth after 48 hours US - abdomen: report reviewed (Dr. Escobar) Assessment and Plan (1) Transaminitis Narrative/Plan: 63-year-old male admitted with multiple constitutional symptoms of weakness fatigue diarrhea and nausea recent outpatient antibiotic therapy for possible strep throat with new onset of atrial fibrillation with RVR transient hypotension and underlying end-stage renal disease hemodialysis dependent with development of acute transaminitis. Suspect a component of hypoperfusion ischemic hepatitis secondary to hypotension and atrial fibrillaiton RVR. Biochemically transaminitis is improving. Ultrasound imaging reported thickening gallbladder wall chronic cholecystitis could not be excluded general surgery has been consulted. Current Visit: Yes Status: Acute Code(s): R74.0 - NONSPEC ELEV OF LEVELS OF TRANSAMNS & LACTIC ACID DEHYDRGNSE SNOMED Code(s): 561343944 (2) New onset a-fib Current Visit: Yes Status: Acute Code(s): I48.91 - UNSPECIFIED ATRIAL FIBRILLATION SNOMED Code(s): 44733310 (3) End stage renal disease on dialysis Current Visit: Yes Status: Chronic Code(s): N18.6 - END STAGE RENAL DISEASE; Z99.2 - DEPENDENCE ON RENAL DIALYSIS SNOMED Code(s): 461232740 Plan: 1. Avoid hepatotoxic medications. Dialysis per nephrology. Continue with daily monitoring of CMP and CBC. Serologic chronic liver disease/MRCP contingent if transaminases do not improve. ERCP not recommended at this time patient's total bilirubin is within normal limits no evidence of extrahepatic obstruction per abdominal imaging studies. General surgical consult. We'll follow closely with you. Thank you for this kind referral and the opportunity to participate in the care of your patient. This consultation was discussed with Dr. Escobar. The impression and plan of care have been directed as dictated.
[2019-04-15 12:07] LABS: Glucose,Whole Blood 160 mg/dL (75-99)
--- NOTE | 2019-04-15 15:00 | P.GSCN ---
<Darlene Elliott - Last Filed: 04/15/19 14:53> History of Present Illness Consult date: 04/15/19 Reason for Consult: Cholecystitis Requesting physician: Vince Strickland History of present illness: CHIEF COMPLAINT: Cholecystitis HISTORY OF PRESENT ILLNESS: 63 year old male with a history of ESRD on hemod ialysis who was admitted to the hospital secondary to weakness and overall feeling unwell. Patient was noted to have elevated LFTs during hospitalization. General surgery was consulted for further evaluation. Patient examined today at the bedside. He denies abdominal pain. Denies nausea or vomiting. He reports tolerating renal diet. Denies intolerance to fatty foods or abdominal pain post-prandial. Denies history of liver disease. Denies history of alcohol abuse. Hepatitis screen non-reactive. Denies previous knowledge of gallbladder disease. Patient received dialysis today and tolerated well. Patient noted to be hypotensive at times throughout admission with SBP 80-90s. PAST MEDICAL HISTORY: See list. PAST SURGICAL HISTORY: See list. SOCIAL HISTORY: No illicit drug use. REVIEW OF SYSTEMS: CONSTITUTIONAL: Denies fever or chills. HEENT: Denies blurred vision, vision changes, or eye pain. Denies hemoptysis CARDIOVASCULAR: Denies chest pain or pressure. RESPIRATORY: No shortness of breath. GASTROINTESTINAL: Refer to HPI for pertinent findings HEMATOLOGIC: Denies bleeding disorders. GENITOURINARY: Denies any blood in urine. SKIN: Denies pruitis. Denies rash. PHYSICAL EXAM: VITAL SIGNS: Reviewed. GENERAL: Well-developed in no acute distress. HEENT: No sclera icterus. Extraocular movements grossly intact. Moist buccal mucosa. Head is atraumatic, normocephalic. ABDOMEN: Soft. Nondistended. Nontender. Positive bowel sounds. NEUROLOGIC: Alert and oriented. Cranial nerves II through XII grossly intact. LABORATORY DATA: Laboratory data today reveals white count 12.7. Hemoglobin 9.9. BUN 63. Creatinine 6.65. AST 4403. ALT 661. ALT 130. Total bilirubin 0.6. INR 1.7. IMAGING: Abdominal ultrasound: Thickened gallbladder wall. Possible cholecystic fluid- difficult to tell due to free fluid. No common bile duct enlargement. Heterogeneous hepatic echotexture most, likely related to hepatic steatosis. ASSESSMENT: 1. Elevated liver enzymes with normal bilirubin 2. Possible chronic cholecystitis, US revealed thickened gallbladder wall 3. ESRD on HD PLAN: 1. Continue current diet. Recommend low fat diet 2. Continue to monitor LFTs. Recommend MRCP. GI is following and will defer to their service 3. In regards to GB wall thickening, patient is completely asymptomatic and no acute surgical intervention is recommended at this time Nurse practitioner note has been reviewed by physician. Signing provider agrees with the documented findings, assessment, and plan of care. Past Medical History Past Medical History: COPD, Dialysis, GERD/Reflux, GI Bleed, Hyperlipidemia, Hypertension, Osteoarthritis (OA), Prostate Disorder, Renal Disease Additional Past Medical History / Comment(s): Chronic lower extremity edema, decreased urinary stream lately, 1991 somach ulcer with hematemesis. Renal disease, Hemodialysis -. Hospitaized in January for volume overload.Strep throat-04/11 History of Any Multi-Drug Resistant Organisms: None Reported Past Surgical History: No Surgical Hx Reported, Heart Catheterization, Heart Catheterization With Stent Additional Past Surgical History / Comment(s): EGD, PermCath & renal bx.heart cath/DAWNA 04-26-18, heart cath last week. Fistula placement. # 3stents placed Past Anesthesia/Blood Transfusion Reactions: No Reported Reaction Additional Past Anesthesia/Blood Transfusion Reaction / Comm: Pt received blood years ago with his stomach ulcer bleed-no reaction. Date of Last Stent Placement:: 05/28/18 Smoking Status: Former smoker - Past Family History Father Family Medical History: Asthma Additional Family Medical History / Comment(s): Father at the age of 64yrs. Mother Family Medical History: Hypertension, Myocardial Infarction ([place]) Additional Family Medical History / Comment(s): Mother had a [place] sometime prior to age 60yrs. She is 86yrs old. Stent Brother(s) Family Medical History: No Reported History Sister(s) Family Medical History: No Reported History Son(s) Family Medical History: No Reported History Daughter(s) Family Medical History: No Reported History Medications and Allergies Home Medications Medication Instructions Recorded Confirmed Type amLODIPine BESYLATE [Norvasc] 10 mg PO DAILY 01/02/18 04/12/19 History Atorvastatin [Lipitor] 40 mg PO DAILY #30 tab 01/21/18 04/12/19 Rx Metoprolol Tartrate [Lopressor] 12.5 mg PO BID #60 tab 01/21/18 04/12/19 Rx Aspirin [Children's Aspirin] 81 mg PO DAILY 04/26/18 04/12/19 History Furosemide [Lasix] 80 mg PO BID@0900,1600 04/26/18 04/12/19 History Clopidogrel [Plavix] 75 mg PO DAILY 12/06/18 04/12/19 History Isoniazid 300 mg PO DAILY@0445 12/06/18 04/12/19 History Pyridoxine HCl (Vitamin B6) 100 mg PO DAILY 12/06/18 04/12/19 History [Vitamin B-6] Calcium Acetate [PhosLo] 1,334 mg PO AC-TID 04/01/19 04/12/19 History Tamsulosin [Flomax] 0.4 mg PO DAILY 04/01/19 04/12/19 History Baclofen [Lioresal] 5 mg PO BID 04/12/19 04/12/19 History Brimonidine/Dorzolamide/Pf 1 drop LEFT EYE DAILY 04/12/19 04/12/19 History [Brimonidine 0.15%-Dorzolam 2%] Calcium Acetate [Phoslo] 667 mg PO BID 04/12/19 04/12/19 History Nitroglycerin Sl Tabs [Nitrostat] 0.4 mg SUBLINGUAL Q5M PRN 04/12/19 04/12/19 History Penicillin V Potassium [Pen Vee K] 500 mg PO BID 04/12/19 04/12/19 History Allergies Allergy/AdvReac Type Severity Reaction Status Date / Time No Known Allergies Allergy Verified 04/12/19 21:36 Surgical - Exam Vital Signs Temp Pulse Resp BP Pulse Ox 97.5 F L 64 16 73/60 95 04/12/19 21:08 04/12/19 21:08 04/12/19 21:08 04/12/19 21:08 04/12/19 21:08 Results - Labs 04/15/19 05:40 04/15/19 05:40 Abnormal Lab Results - Last 24 Hours (Table) 04/14/19 04/14/19 04/14/19 Range/Units 16:06 16:06 21:13 WBC (3.8-10.6) k/uL RBC (4.30-5.90) m/uL Hgb (13.0-17.5) gm/dL Hct (39.0-53.0) % RDW (11.5-15.5) % Neutrophils # (1.3-7.7) k/uL PT (9.0-12.0) sec INR (<1.2) APTT 34.0 H (22.0-30.0) sec Sodium 135 L (137-145) mmol/L Potassium (3.5-5.1) mmol/L Chloride 92 L (98-107) mmol/L BUN 40 H (9-20) mg/dL Creatinine 4.92 H (0.66-1.25) mg/dL Glucose (74-99) mg/dL POC Glucose (mg/dL) 148 H (75-99) mg/dL Calcium (8.4-10.2) mg/dL AST 6472 H (17-59) U/L ALT 780 H (21-72) U/L Alkaline Phosphatase (38-126) U/L Total Protein 5.4 L (6.3-8.2) g/dL Albumin 3.2 L (3.5-5.0) g/dL 04/15/19 04/15/19 04/15/19 Range/Units 02:03 05:40 05:40 WBC 12.7 H (3.8-10.6) k/uL RBC 3.35 L (4.30-5.90) m/uL Hgb 9.9 L (13.0-17.5) gm/dL Hct 31.6 L (39.0-53.0) % RDW 16.8 H (11.5-15.5) % Neutrophils # 11.0 H (1.3-7.7) k/uL PT (9.0-12.0) sec INR (<1.2) APTT (22.0-30.0) sec Sodium 132 L (137-145) mmol/L Potassium 5.2 H (3.5-5.1) mmol/L Chloride 95 L (98-107) mmol/L BUN 63 H (9-20) mg/dL Creatinine 6.65 H (0.66-1.25) mg/dL Glucose 116 H (74-99) mg/dL POC Glucose (mg/dL) 131 H (75-99) mg/dL Calcium 8.1 L (8.4-10.2) mg/dL AST 4403 H (17-59) U/L ALT 661 H (21-72) U/L Alkaline Phosphatase 130 H (38-126) U/L Total Protein 5.0 L (6.3-8.2) g/dL Albumin 2.9 L (3.5-5.0) g/dL 04/15/19 04/15/19 04/15/19 Range/Units 05:59 11:01 11:56 WBC (3.8-10.6) k/uL RBC (4.30-5.90) m/uL Hgb (13.0-17.5) gm/dL Hct (39.0-53.0) % RDW (11.5-15.5) % Neutrophils # (1.3-7.7) k/uL PT 16.9 H (9.0-12.0) sec INR 1.7 H (<1.2) APTT 34.8 H (22.0-30.0) sec Sodium (137-145) mmol/L Potassium (3.5-5.1) mmol/L Chloride (98-107) mmol/L BUN (9-20) mg/dL Creatinine (0.66-1.25) mg/dL Glucose (74-99) mg/dL POC Glucose (mg/dL) 127 H 160 H (75-99) mg/dL Calcium (8.4-10.2) mg/dL AST (17-59) U/L ALT (21-72) U/L Alkaline Phosphatase (38-126) U/L Total Protein (6.3-8.2) g/dL Albumin (3.5-5.0) g/dL Microbiology - Last 24 Hours (Table) 04/12/19 21:40 Blood Culture - Preliminary Blood No Growth after 48 hours Diabetes panel 04/14/19 04/15/19 Range/Units 16:06 05:40 Sodium 135 L 132 L (137-145) mmol/L Potassium 5.1 5.2 H (3.5-5.1) mmol/L Chloride 92 L 95 L (98-107) mmol/L Carbon Dioxide 26 24 (22-30) mmol/L BUN 40 H 63 H (9-20) mg/dL Creatinine 4.92 H 6.65 H (0.66-1.25) mg/dL Glucose 99 116 H (74-99) mg/dL Calcium 8.7 8.1 L (8.4-10.2) mg/dL AST 6472 H 4403 H (17-59) U/L ALT 780 H 661 H (21-72) U/L Alkaline Phosphatase 125 130 H (38-126) U/L Total Protein 5.4 L 5.0 L (6.3-8.2) g/dL Albumin 3.2 L 2.9 L (3.5-5.0) g/dL Calcium panel 04/14/19 04/15/19 Range/Units 16:06 05:40 Calcium 8.7 8.1 L (8.4-10.2) mg/dL Albumin 3.2 L 2.9 L (3.5-5.0) g/dL Pituitary panel 04/14/19 04/15/19 Range/Units 16:06 05:40 Sodium 135 L 132 L (137-145) mmol/L Potassium 5.1 5.2 H (3.5-5.1) mmol/L Chloride 92 L 95 L (98-107) mmol/L Carbon Dioxide 26 24 (22-30) mmol/L BUN 40 H 63 H (9-20) mg/dL Creatinine 4.92 H 6.65 H (0.66-1.25) mg/dL Glucose 99 116 H (74-99) mg/dL Calcium 8.7 8.1 L (8.4-10.2) mg/dL Adrenal panel 04/14/19 04/15/19 Range/Units 16:06 05:40 Sodium 135 L 132 L (137-145) mmol/L Potassium 5.1 5.2 H (3.5-5.1) mmol/L Chloride 92 L 95 L (98-107) mmol/L Carbon Dioxide 26 24 (22-30) mmol/L BUN 40 H 63 H (9-20) mg/dL Creatinine 4.92 H 6.65 H (0.66-1.25) mg/dL Glucose 99 116 H (74-99) mg/dL Calcium 8.7 8.1 L (8.4-10.2) mg/dL Total Bilirubin 0.8 0.6 (0.2-1.3) mg/dL AST 6472 H 4403 H (17-59) U/L ALT 780 H 661 H (21-72) U/L Alkaline Phosphatase 125 130 H (38-126) U/L Total Protein 5.4 L 5.0 L (6.3-8.2) g/dL Albumin 3.2 L 2.9 L (3.5-5.0) g/dL <Carter Devine - Last Filed: 04/15/19 16:45> History of Present Illness History of present illness: As above. Patient denies abdominal pain. Examination is benign. Thickened wall common in dialysis patients. Do not suspect choledocholithiasis or biliary obstruction given the lab values currently. Agree with GIs plans of monitoring the patient's labs. No surgical intervention planned. Surgical - Exam Vital Signs Temp Pulse Resp BP Pulse Ox 97.5 F L 64 16 73/60 95 04/12/19 21:08 04/12/19 21:08 04/12/19 21:08 04/12/19 21:08 04/12/19 21:08 Results - Labs 04/15/19 05:40 04/15/19 05:40 Abnormal Lab Results - Last 24 Hours (Table) 04/14/19 04/14/19 04/14/19 Range/Units 16:06 16:06 21:13 WBC (3.8-10.6) k/uL RBC (4.30-5.90) m/uL Hgb (13.0-17.5) gm/dL Hct (39.0-53.0) % RDW (11.5-15.5) % Neutrophils # (1.3-7.7) k/uL PT (9.0-12.0) sec INR (<1.2) APTT 34.0 H (22.0-30.0) sec Sodium 135 L (137-145) mmol/L Potassium (3.5-5.1) mmol/L Chloride 92 L (98-107) mmol/L BUN 40 H (9-20) mg/dL Creatinine 4.92 H (0.66-1.25) mg/dL Glucose (74-99) mg/dL POC Glucose (mg/dL) 148 H (75-99) mg/dL Calcium (8.4-10.2) mg/dL AST 6472 H (17-59) U/L ALT 780 H (21-72) U/L Alkaline Phosphatase (38-126) U/L Total Protein 5.4 L (6.3-8.2) g/dL Albumin 3.2 L (3.5-5.0) g/dL 04/15/19 04/15/19 04/15/19 Range/Units 02:03 05:40 05:40 WBC 12.7 H (3.8-10.6) k/uL RBC 3.35 L (4.30-5.90) m/uL Hgb 9.9 L (13.0-17.5) gm/dL Hct 31.6 L (39.0-53.0) % RDW 16.8 H (11.5-15.5) % Neutrophils # 11.0 H (1.3-7.7) k/uL PT (9.0-12.0) sec INR (<1.2) APTT (22.0-30.0) sec Sodium 132 L (137-145) mmol/L Potassium 5.2 H (3.5-5.1) mmol/L Chloride 95 L (98-107) mmol/L BUN 63 H (9-20) mg/dL Creatinine 6.65 H (0.66-1.25) mg/dL Glucose 116 H (74-99) mg/dL POC Glucose (mg/dL) 131 H (75-99) mg/dL Calcium 8.1 L (8.4-10.2) mg/dL AST 4403 H (17-59) U/L ALT 661 H (21-72) U/L Alkaline Phosphatase 130 H (38-126) U/L Total Protein 5.0 L (6.3-8.2) g/dL Albumin 2.9 L (3.5-5.0) g/dL 04/15/19 04/15/19 04/15/19 Range/Units 05:59 11:01 11:56 WBC (3.8-10.6) k/uL RBC (4.30-5.90) m/uL Hgb (13.0-17.5) gm/dL Hct (39.0-53.0) % RDW (11.5-15.5) % Neutrophils # (1.3-7.7) k/uL PT 16.9 H (9.0-12.0) sec INR 1.7 H (<1.2) APTT 34.8 H (22.0-30.0) sec Sodium (137-145) mmol/L Potassium (3.5-5.1) mmol/L Chloride (98-107) mmol/L BUN (9-20) mg/dL Creatinine (0.66-1.25) mg/dL Glucose (74-99) mg/dL POC Glucose (mg/dL) 127 H 160 H (75-99) mg/dL Calcium (8.4-10.2) mg/dL AST (17-59) U/L ALT (21-72) U/L Alkaline Phosphatase (38-126) U/L Total Protein (6.3-8.2) g/dL Albumin (3.5-5.0) g/dL Microbiology - Last 24 Hours (Table) 04/12/19 21:40 Blood Culture - Preliminary Blood No Growth after 48 hours Diabetes panel 04/14/19 04/15/19 Range/Units 16:06 05:40 Sodium 135 L 132 L (137-145) mmol/L Potassium 5.1 5.2 H (3.5-5.1) mmol/L Chloride 92 L 95 L (98-107) mmol/L Carbon Dioxide 26 24 (22-30) mmol/L BUN 40 H 63 H (9-20) mg/dL Creatinine 4.92 H 6.65 H (0.66-1.25) mg/dL Glucose 99 116 H (74-99) mg/dL Calcium 8.7 8.1 L (8.4-10.2) mg/dL AST 6472 H 4403 H (17-59) U/L ALT 780 H 661 H (21-72) U/L Alkaline Phosphatase 125 130 H (38-126) U/L Total Protein 5.4 L 5.0 L (6.3-8.2) g/dL Albumin 3.2 L 2.9 L (3.5-5.0) g/dL Calcium panel 04/14/19 04/15/19 Range/Units 16:06 05:40 Calcium 8.7 8.1 L (8.4-10.2) mg/dL Albumin 3.2 L 2.9 L (3.5-5.0) g/dL Pituitary panel 04/14/19 04/15/19 Range/Units 16:06 05:40 Sodium 135 L 132 L (137-145) mmol/L Potassium 5.1 5.2 H (3.5-5.1) mmol/L Chloride 92 L 95 L (98-107) mmol/L Carbon Dioxide 26 24 (22-30) mmol/L BUN 40 H 63 H (9-20) mg/dL Creatinine 4.92 H 6.65 H (0.66-1.25) mg/dL Glucose 99 116 H (74-99) mg/dL Calcium 8.7 8.1 L (8.4-10.2) mg/dL Adrenal panel 04/14/19 04/15/19 Range/Units 16:06 05:40 Sodium 135 L 132 L (137-145) mmol/L Potassium 5.1 5.2 H (3.5-5.1) mmol/L Chloride 92 L 95 L (98-107) mmol/L Carbon Dioxide 26 24 (22-30) mmol/L BUN 40 H 63 H (9-20) mg/dL Creatinine 4.92 H 6.65 H (0.66-1.25) mg/dL Glucose 99 116 H (74-99) mg/dL Calcium 8.7 8.1 L (8.4-10.2) mg/dL Total Bilirubin 0.8 0.6 (0.2-1.3) mg/dL AST 6472 H 4403 H (17-59) U/L ALT 780 H 661 H (21-72) U/L Alkaline Phosphatase 125 130 H (38-126) U/L Total Protein 5.4 L 5.0 L (6.3-8.2) g/dL Albumin 3.2 L 2.9 L (3.5-5.0) g/dL
--- NOTE | 2019-04-15 15:06 | P.PN ---
Subjective Progress Note Date: 04/15/19 This is a 63-year-old gentleman who follows with Dr. Dunn in the office. He has a known history of hypertension, hyperlipidemia, family history of coronary artery disease, nicotine dependence, nonrheumatic mitral valve insufficiency, end-stage renal disease on hemodialysis 3 times a week, ischemic cardiomyopathy, patient underwent successful stenting of the proximal LAD first obtuse marginal and mid RCA in May 2018, he is currently receiving treatment for strep throat as an outpatient, for the past 10 days, patient also has history of TB, he presents to the hospital on this admission with symptoms of nausea, frequent diarrhea, and weakness. Chest x-ray performed on admission shows small bilateral pleural effusions and pulmonary vascularity otherwise appears normal. His EKG on presentation here showed atrial fibrillation with moderately rapid ventricular response. Patient has no prior documented history of atrial fibrillation in the past. His blood pressure on admission here 73/60 with a heart rate in the 60s, 95% on room air. Pressure this morning 105/60 with a heart rate of 90, 99% on 3 L of oxygen. White blood cell count on arrival 11.5, hemoglobin 11.5, platelet count 1:30. Sodium 131, potassium 5.2, BUN 61, creatinine 7.3, troponin 0.015. This morning's labs, white blood cell count 9.2, hemoglobin 10.9, platelet count 124. Sodium 129, potassium 0.5, BUN 66, 7.4 creatinine. At the time of my examination this morning, patient complains of feeling very weak and achy all over, continues to have frequent diarrhea stools, denies any chest discomfort, mildly short of breath. 04/14/2019 Patient was seen and examined this morning, continues to feel weak, sleepy, undergoing dialysis at present. Blood pressure this morning 92/50 with a heart rate in the 70s, afebrile, 97% on 3 L of oxygen. White blood cell count 13.8, hemoglobin 10.4, platelet count 131. Sodium 133, potassium 6.1, BUN 65 and creatinine 7.7. AST on admission 39, 3520 today, ALT on admission 16, 415 today. 04/15/2019 Patient was seen and examined this morning, continues to be on IV heparin, although his IV was discontinued this morning. Breathing is overall stable, blood pressure remains on the lower side. Patient could not tolerate much ultrafiltration yesterday due to his hypotension. A limited echocardiogram with Doppler study was performed which showed a moderate generalized pericardial effusion. For this reason we will defer starting the patient on anticoagulation at this time. Objective - Vital Signs Vital signs: Vital Signs Temp 98.3 F 04/15/19 13:44 Pulse 81 04/15/19 13:44 Resp 18 04/15/19 13:44 BP 109/51 04/15/19 13:44 Pulse Ox 97 04/15/19 13:44 Intake & Output 04/14/19 04/15/19 04/15/19 18:59 06:59 18:59 Intake Total 836.043 410.346 620 Output Total 686 0 1700 Balance 150.043 410.346 -1080 Weight 89.7 kg Intake: Intake, IV Titration 176.043 110.346 20 Amount Heparin Sod,Pork in 0.45% 126.043 110.346 NaCl 25,000 unit In 0.45 % NaCl 1 250ml.bag @ 12 UNITS/KG/HR 10.07 mls/hr IV .Q24H [facility]ENG Rx#: [id number] Sodium Chloride 0.9% 1, 50 20 000 ml @ 75 mls/hr IV . [id number] FENG Rx#:[id number] Oral 360 300 600 Hemodialysis 300 Output: Urine 0 0 Hemodialysis 686 1700 Other: Voiding Method Toilet Urinal - Exam PHYSICAL EXAMINATION: GENERAL: 63-year-old gentleman in no acute distress at the time of my examination HEENT: Head is atraumatic, normocephalic. Pupils equal, round. Sclera anicteric. Conjunctiva are clear. Mucous membranes of the mouth are moist. Neck is supple. There is no elevated jugular venous pressure. No carotid bruit is heard. HEART EXAMINATION: Heart S1-S2 at II/ systolic ejection murmur is heard at the base with radiation to the neck, II/ holosystolic murmur heard at the apex CHEST EXAMINATION: Lungs reveal mild diminished air entry to bilateral bases. ABDOMEN: Soft, nontender. Bowel sounds are heard. No organomegaly noted. EXTREMITIES: 2+ peripheral pulses with evidence of peripheral edema and no calf tenderness noted. NEUROLOGIC patient is awake, alert and oriented 3 . - Labs CBC & Chem 7: 04/15/19 05:40 04/15/19 05:40 Labs: Abnormal Lab Results - Last 24 Hours (Table) 04/14/19 04/14/19 04/14/19 Range/Units 16:06 16:06 21:13 WBC (3.8-10.6) k/uL RBC (4.30-5.90) m/uL Hgb (13.0-17.5) gm/dL Hct (39.0-53.0) % RDW (11.5-15.5) % Neutrophils # (1.3-7.7) k/uL PT (9.0-12.0) sec INR (<1.2) APTT 34.0 H (22.0-30.0) sec Sodium 135 L (137-145) mmol/L Potassium (3.5-5.1) mmol/L Chloride 92 L (98-107) mmol/L BUN 40 H (9-20) mg/dL Creatinine 4.92 H (0.66-1.25) mg/dL Glucose (74-99) mg/dL POC Glucose (mg/dL) 148 H (75-99) mg/dL Calcium (8.4-10.2) mg/dL AST 6472 H (17-59) U/L ALT 780 H (21-72) U/L Alkaline Phosphatase (38-126) U/L Total Protein 5.4 L (6.3-8.2) g/dL Albumin 3.2 L (3.5-5.0) g/dL 04/15/19 04/15/19 04/15/19 Range/Units 02:03 05:40 05:40 WBC 12.7 H (3.8-10.6) k/uL RBC 3.35 L (4.30-5.90) m/uL Hgb 9.9 L (13.0-17.5) gm/dL Hct 31.6 L (39.0-53.0) % RDW 16.8 H (11.5-15.5) % Neutrophils # 11.0 H (1.3-7.7) k/uL PT (9.0-12.0) sec INR (<1.2) APTT (22.0-30.0) sec Sodium 132 L (137-145) mmol/L Potassium 5.2 H (3.5-5.1) mmol/L Chloride 95 L (98-107) mmol/L BUN 63 H (9-20) mg/dL Creatinine 6.65 H (0.66-1.25) mg/dL Glucose 116 H (74-99) mg/dL POC Glucose (mg/dL) 131 H (75-99) mg/dL Calcium 8.1 L (8.4-10.2) mg/dL AST 4403 H (17-59) U/L ALT 661 H (21-72) U/L Alkaline Phosphatase 130 H (38-126) U/L Total Protein 5.0 L (6.3-8.2) g/dL Albumin 2.9 L (3.5-5.0) g/dL 04/15/19 04/15/19 04/15/19 Range/Units 05:59 11:01 11:56 WBC (3.8-10.6) k/uL RBC (4.30-5.90) m/uL Hgb (13.0-17.5) gm/dL Hct (39.0-53.0) % RDW (11.5-15.5) % Neutrophils # (1.3-7.7) k/uL PT 16.9 H (9.0-12.0) sec INR 1.7 H (<1.2) APTT 34.8 H (22.0-30.0) sec Sodium (137-145) mmol/L Potassium (3.5-5.1) mmol/L Chloride (98-107) mmol/L BUN (9-20) mg/dL Creatinine (0.66-1.25) mg/dL Glucose (74-99) mg/dL POC Glucose (mg/dL) 127 H 160 H (75-99) mg/dL Calcium (8.4-10.2) mg/dL AST (17-59) U/L ALT (21-72) U/L Alkaline Phosphatase (38-126) U/L Total Protein (6.3-8.2) g/dL Albumin (3.5-5.0) g/dL Microbiology - Last 24 Hours (Table) 04/12/19 21:40 Blood Culture - Preliminary Blood No Growth after 48 hours Assessment and Plan Plan: Assessment and plan #1 symptoms of progressive weakness with associated nausea and frequent diarrhea stools #2 strep throat, patient has been on antibiotics as an outpatient for the past 10 days #3 new-onset atrial fibrillation #4 hypertension #5 hyperlipidemia #6 coronary artery disease with multivessel stenting #7 nicotine dependence #8 non-rheumatic mitral valve insufficiency #9 ischemic cardiomyopathy #10 end-stage renal disease on hemodialysis 3 times a week Plan Patients most recent echo was performed performed on April 02 of this year revealed an ejection fraction of 55-60%, mild to moderate tricuspid regurgitation, moderate pulmonary hypertension. Limited echocardiogram with Doppler study reveals a moderate generalized pericardial effusion. For this reason we will not start the patient on oral anticoagulation at this point. LFTs improving. DNP note has been reviewed, I agree with a documented findings and plan of care. Patient was seen and examined.
--- NOTE | 2019-04-15 15:35 | P.PN ---
Subjective Progress Note Date: 04/15/19 This is a 63-year-old male with past medical history significant for end-stage renal disease with dialysis Sunday and Sunday, COPD hypertension, hyperlipidemia, GERD, osteoarthritis, and BPH. Patient presented to the emergency room with complaints of shortness of breath, weakness and generalized feeling unwell. Patient states that he had fever and chills for 2 days. Patient states that he has been feeling unwell throughout the day yesterday. He has had nausea and vomiting with diarrhea that is green in color not bloody. After the vomiting and diarrhea patient developed shortness of breath which prompted him to come to the emergency room. Patient was currently being treated for strep throat with oral antibiotics and had completed a 10 day course of antibiotics with no improvement of his symptoms he was subsequently placed on a second antibiotic. Patient's last dialysis was on Sunday where they removed 2 L. Patient is able to make some urine. Patient is sitting up in bed at this time. He has no complaints of of shortness of breath. Patient does complain of generalized weakness and diarrhea that is green in color. Patient denies bloody diarrhea. Patient's to be received today 9.2 down from 11.5 yesterday, hemoglobin 10.9, potassium is 6.5, BUN 66, creatinine 7.47. Stool was negative for C. diff. Chest x-ray shows small bilateral pleural effusion. Lungs otherwise appear clear. Pulmonary vascularity appears within limits. Cardiac silhouette is enlarged. 04/14: Patient is currently undergoing hemodialysis. Apparently yesterday he was only able to tolerate one and a half hours due to low blood pressure. Nephrology started him on midodrine. Patient complains of feeling weak. He denies any chest pain or palpitations. Repeat lab work reveals [place] BC 13.8, hemoglobin 10.4, platelet count 131. Sodium 133, potassium 6.1, chloride 94, CO2 19, BUN 65 and creatinine 7.78. Blood sugars been running between 106 and 133. Noted that his AST jumped up to 3520, ALT 415. A kind phosphatase 116. Acute hepatitis panel and ultrasound of the abdomen have been ordered. Repeat CMP ordered for 3 PM and repeat again in the morning. Patient is also followed by cardiology with plan for anticoagulation and repeat echocardiogram has been ordered. Lipitor was discontinued. 04/15: Abdominal ultrasound revealed chronic cholecystitis with gallbladder wall thickening, small amount of surrounding ascites,. Cholecystic fluid, positive Enciso sign. No common bile duct enlargement seen. HIDA scan recommended versus surgical consultation. Medical renal disease in the right kidney with cortical thinning. Partially visualized right pleural effusion. Heterogeneous hepatic echotexture most commonly related to hepatic steatosis however other hepatocellular diseases are possible. Patient denies any abdominal pain. Patient is scheduled for extra HD treatment today for ultrafiltration and a repeat for tomorrow is his usual schedule. Patient has been started on midodrine as needed. Patient did not have IV access last night and one dose of Lovenox was ordered until IV access can be obtained today. Limited echocardiogram revealed moderate generalized pericardial effusion and because of this cardiology is recommending not starting anticoagulation. I'll repeat lab work today reveals white count of 12.7, hemoglobin 9.9, BUN 63 and creatinine 6.65 potassium 5.2, sodium 132 and chloride 95, CO2 24. INR is 1.7. AST 4403, ALT 661, alkaline phosphatase 130 which is improved from yesterday afternoon draw of AST of 6472, ALT 780, alkaline phosphatase 125. Patient's bilirubin has remained normal. Acute hepatitis panel is negative. Consults have been added for GI and general surgery. Objective - Vital Signs Vital signs: Vital Signs Temp 98.4 F 04/15/19 12:24 Pulse 84 04/15/19 12:24 Resp 18 04/15/19 12:24 BP 111/58 04/15/19 12:24 Pulse Ox 98 04/15/19 12:24 Intake & Output 04/14/19 04/15/19 04/15/19 18:59 06:59 18:59 Intake Total 836.043 410.346 600 Output Total 686 0 Balance 150.043 410.346 600 Weight 89.7 kg Intake: Intake, IV Titration 176.043 110.346 Amount Heparin Sod,Pork in 0.45% 126.043 110.346 NaCl 25,000 unit In 0.45 % NaCl 1 250ml.bag @ 12 UNITS/KG/HR 10.07 mls/hr IV .Q24H [facility] Rx#: [id number] Sodium Chloride 0.9% 1, 50 000 ml @ 75 mls/hr IV . [id number] FENG Rx#:[id number] Oral 360 300 600 Hemodialysis 300 Output: Urine 0 0 Hemodialysis 686 Other: Voiding Method Toilet Urinal - Exam Review of Systems Constitutional: Reports chills, Reports fatigue, Reports fever, Reports generalized weakness Ears, nose, mouth and throat: Reports nasal congestion, Reports nasal discharge, Reports sore throat Cardiovascular: Reports dyspnea on exertion Respiratory: Reports cough, Reports dyspnea Gastrointestinal: Reports diarrhea, Reports nausea, Denies vomiting, denies abdominal pain Genitourinary: Denies dysuria, Denies hematuria Musculoskeletal: Reports muscle weakness, Denies gait dysfunction, Denies limitation of motion Integumentary: Denies lesions, Denies rash, Denies wounds Neurological: Reports weakness, Denies headaches, Denies syncope, Denies vertigo Psychiatric: Denies anxiety, Denies confusion, Denies depression Endocrine: Denies excessive sweating, Denies excessive thirst Physical exam: General Appearance: Alert, cooperative, no distress, appears stated age. Generalized weakness Neck HEENT: Supple, no lymphadenopathy, no thyroid enlargement, no carotid bruits. Lungs: Clear to auscultation without crackles or wheezes no rhonchi, no deformity. Chest Wall: Chest wall normal expansion with deep inspiration no tenderness and no deformity was found on exam, no costochondral pain or discomfort. Heart: Regular rate and rhythm, S1, S2 normal, no murmur, rub or gallop. Abdomen: Soft, non-tender, no rebound or rigidity, no hepatosplenomegaly. No abdominal tenderness with palpation. Patient denies abdominal pain. Extremities: Extremities normal, atraumatic, no cyanosis or edema. Pulses: 2+ and symmetric. Skin: Skin color, texture, tugor normal, no rashes or lesions. Neurologic: Alert oriented x3 cranial nerves II through XII intact, no motor deficit, no abnormal balance or gait - Labs CBC & Chem 7: 04/15/19 05:40 04/15/19 05:40 Labs: Abnormal Lab Results - Last 24 Hours (Table) 04/14/19 04/14/19 04/14/19 Range/Units 16:06 16:06 21:13 WBC (3.8-10.6) k/uL RBC (4.30-5.90) m/uL Hgb (13.0-17.5) gm/dL Hct (39.0-53.0) % RDW (11.5-15.5) % Neutrophils # (1.3-7.7) k/uL PT (9.0-12.0) sec INR (<1.2) APTT 34.0 H (22.0-30.0) sec Sodium 135 L (137-145) mmol/L Potassium (3.5-5.1) mmol/L Chloride 92 L (98-107) mmol/L BUN 40 H (9-20) mg/dL Creatinine 4.92 H (0.66-1.25) mg/dL Glucose (74-99) mg/dL POC Glucose (mg/dL) 148 H (75-99) mg/dL Calcium (8.4-10.2) mg/dL AST 6472 H (17-59) U/L ALT 780 H (21-72) U/L Alkaline Phosphatase (38-126) U/L Total Protein 5.4 L (6.3-8.2) g/dL Albumin 3.2 L (3.5-5.0) g/dL 04/15/19 04/15/19 04/15/19 Range/Units 02:03 05:40 05:40 WBC 12.7 H (3.8-10.6) k/uL RBC 3.35 L (4.30-5.90) m/uL Hgb 9.9 L (13.0-17.5) gm/dL Hct 31.6 L (39.0-53.0) % RDW 16.8 H (11.5-15.5) % Neutrophils # 11.0 H (1.3-7.7) k/uL PT (9.0-12.0) sec INR (<1.2) APTT (22.0-30.0) sec Sodium 132 L (137-145) mmol/L Potassium 5.2 H (3.5-5.1) mmol/L Chloride 95 L (98-107) mmol/L BUN 63 H (9-20) mg/dL Creatinine 6.65 H (0.66-1.25) mg/dL Glucose 116 H (74-99) mg/dL POC Glucose (mg/dL) 131 H (75-99) mg/dL Calcium 8.1 L (8.4-10.2) mg/dL AST 4403 H (17-59) U/L ALT 661 H (21-72) U/L Alkaline Phosphatase 130 H (38-126) U/L Total Protein 5.0 L (6.3-8.2) g/dL Albumin 2.9 L (3.5-5.0) g/dL 04/15/19 04/15/19 04/15/19 Range/Units 05:59 11:01 11:56 WBC (3.8-10.6) k/uL RBC (4.30-5.90) m/uL Hgb (13.0-17.5) gm/dL Hct (39.0-53.0) % RDW (11.5-15.5) % Neutrophils # (1.3-7.7) k/uL PT 16.9 H (9.0-12.0) sec INR 1.7 H (<1.2) APTT 34.8 H (22.0-30.0) sec Sodium (137-145) mmol/L Potassium (3.5-5.1) mmol/L Chloride (98-107) mmol/L BUN (9-20) mg/dL Creatinine (0.66-1.25) mg/dL Glucose (74-99) mg/dL POC Glucose (mg/dL) 127 H 160 H (75-99) mg/dL Calcium (8.4-10.2) mg/dL AST (17-59) U/L ALT (21-72) U/L Alkaline Phosphatase (38-126) U/L Total Protein (6.3-8.2) g/dL Albumin (3.5-5.0) g/dL Microbiology - Last 24 Hours (Table) 04/12/19 21:40 Blood Culture - Preliminary Blood No Growth after 48 hours Assessment and Plan Plan: 1. New onset atrial fibrillation with RVR, probable paroxysmal atrial fibrillation. Cardiology consult appreciated. Continue heparin drip for anticoagulation. Continue metoprolol 12.5 by mouth twice a day. Transition to oral anticoagulant medication has been held by cardiology due to the pericardial effusion. 2. Dehydration with diarrhea. Continue hydration. Stool culture negative for C. diff. 3. End-stage renal failure on dialysis Sunday with graft in left arm. Nephrology consult appreciated. Continue with dialysis as ordered by nephrology. 4. Hyperkalemia. Nephrology consult appreciated. Continue to monitor. 5. Generalized weakness. Continue hydration. 6. Upper respiratory infection possible strep throat. Chest x-ray negative. Was treated with antibiotics outpatient for 10 days. 7. Latent tuberculosis. Continue isoniazid. 8. Hypertension. Continue metoprolol 12.5 mg twice daily. 9. Hyperlipidemia. Continue Lipitor 40 mg by mouth daily 10. Coronary artery disease with multiple vessel stenting. Continue Lipitor 11. Ischemic cardiomyopathy. Continue metoprolol 12. Osteoarthritis. Continue baclofen 5 mg by mouth twice a day, continue [place] 5/325 one tablet every 6 hours as needed for pain 13. BPH. Continue Flomax 0.4 mg daily 14. Difficulty sleeping. Melatonin 6 mg by mouth at bedtime 15. GI prophylaxis. Protonix 40 mg IV daily 16. DVT prophylaxis. Currently on heparin 17. Elevated liver function tests. Statin discontinued. Acute hepatitis panel negative. Ultrasound of the liver as above. 18. Chronic cholecystitis. GI and general surgery consult and it. Discharge plan: Most likely return home. Impression and plan of care have been directed as dictated by the signing physician. Anita Amaya nurse practitioner acting as scribe for signing physician.
[2019-04-15 16:55] LABS: Glucose,Whole Blood 158 mg/dL (75-99)
[2019-04-15 19:01] LABS: Glucose,Whole Blood 227 mg/dL (75-99)
[2019-04-15] MEDS: MELATONIN 3 MG TABLET PO SCH (20:36)
[2019-04-15 20:49] LABS: Glucose,Whole Blood 186 mg/dL (75-99)
[2019-04-15 21:14] LABS: Potassium 4.2 mmol/L (3.5-5.1)
[2019-04-16 00:33] LABS: Glucose,Whole Blood 139 mg/dL (75-99)
[2019-04-16] MEDS: ISONIAZID 100 MG TABLET PO SCH (03:45)
[2019-04-16] MEDS: PYRIDOXINE 50 MG TAB PO SCH (03:45)
[2019-04-16] MEDS: SODIUM CHLORIDE 0.9% 1,000 ML IV SCH ×2 (06:02→19:25)
[2019-04-16] MEDS: SUCRALFATE 1 GM TAB PO SCH ×3 (06:04→14:45)
[2019-04-16] MEDS: CALCIUM ACETATE 667 MG CAP PO SCH ×2 (06:04→14:45)
[2019-04-16] MEDS: PANTOPRAZOLE 40 MG TABLET PO SCH (06:04)
[2019-04-16 06:28] LABS: Glucose,Whole Blood 127 mg/dL (75-99)
[2019-04-16 06:43] LABS: Basophils % (A) 0 %; Eosinophils # (A) 0.1 k/uL (0-0.7); Eosinophils % (A) 1 %; HCT 34.5 % (39.0-53.0); HGB 10.4 gm/dL (13.0-17.5); Hypochromasia Marked; Lymphocytes # (A) 0.6 k/uL (1.0-4.8); Lymphocytes % (A) 6 %; MCH 29.1 pg (25.0-35.0); MCHC 30.2 g/dL (31.0-37.0); MCV 96.5 fL (80.0-100.0); Monocytes # (A) 0.5 k/uL (0-1.0); Monocytes % (A) 5 %; Neutrophils # (A) 8.3 k/uL (1.3-7.7); Neutrophils % (A) 87 %; Platelet Count 117 k/uL (150-450); RBC 3.58 m/uL (4.30-5.90); RDW 15.8 % (11.5-15.5); WBC 9.6 k/uL (3.8-10.6)
[2019-04-16] MEDS: METOPROLOL TARTRATE 12.5 MG TAB PO SCH ×2 (08:23→19:28)
[2019-04-16] MEDS: BACLOFEN 10 MG TAB PO SCH ×2 (08:24→19:28)
[2019-04-16] MEDS: TAMSULOSIN 0.4 MG CAP.ER.24H PO SCH (08:24)
[2019-04-16] MEDS: BRIMONIDINE LEFT EYE SCH (08:24)
[2019-04-16] MEDS: DORZOLAMIDE LEFT EYE SCH (08:24)
[2019-04-16 08:53] LABS: ALT 574 U/L (21-72); African American GFR (CKD) 9 (>60 ml/min/1.73 sqM); Albumin 2.9 g/dL (3.5-5.0); Alkaline Phosphatase 122 U/L (38-126); Anion Gap 16 mmol/L; Blood Urea Nitrogen 70 mg/dL (9-20); Calcium 8.2 mg/dL (8.4-10.2); Carbon Dioxide 20 mmol/L (22-30); Chloride 98 mmol/L (98-107); Glucose 124 mg/dL (74-99); Sodium 134 mmol/L (137-145); Total Bilirubin 0.9 mg/dL (0.2-1.3); Total Protein 5.2 g/dL (6.3-8.2)
[2019-04-16 09:00] LABS: Potassium 4.7 mmol/L (3.5-5.1)
[2019-04-16 09:10] LABS: AST >1500 U/L (17-59)
--- NOTE | 2019-04-16 09:36 | P.PN ---
Subjective Progress Note Date: 04/16/19 Principal diagnosis: Transaminitis Feels well this morning. Received dialysis yesterday. Total bilirubin 0.9. AST greater than 1500. ALT 574. AP 122. BUN 70. Creatinine 6.9. Systolic blood pressures greater than 90. Objective - Vital Signs Vital signs: Vital Signs Temp 97.7 F 04/16/19 08:15 Pulse 82 04/16/19 08:15 Resp 20 04/16/19 08:15 BP 129/71 04/16/19 08:15 Pulse Ox 98 04/16/19 08:15 Intake & Output 04/15/19 04/16/19 04/16/19 18:59 06:59 18:59 Intake Total 922.5 10 536.649 Output Total 1700 Balance -777.5 10 536.649 Weight 91 kg Intake: Intake, IV Titration 82.5 176.649 Amount Heparin Sod,Pork in 0.45% 62.5 176.649 NaCl 25,000 unit In 0.45 % NaCl 1 250ml.bag @ 11. 148 UNITS/KG/HR 10 mls/hr IV .Q24H [facility]ENG Rx#: [id number] Sodium Chloride 0.9% 1, 20 000 ml @ 75 mls/hr IV . [id number] FENG Rx#:[id number] Oral 840 10 360 Output: Hemodialysis 1700 Other: Voiding Method Toilet Toilet Urinal Urinal # Voids 1 - Exam General appearance: The patient is alert, oriented, in no acute distress. HET: Head is normocephalic and atraumatic. Pupils are equal and reactive. Oropharynx is clear without lesions. Neck: Supple without lymphadenopathy. Trachea midline. Heart: S1 S2. Regular rate and rhythm. Lungs: No crackles or wheezes are heard. Abdomen: Soft, nontender, nondistended with bowel sounds. No peritoneal signs. No palpable organomegaly or masses. Extremities: Normal skin color and turgor. No cyanosis, rash, ulceration, clubbing, or edema. Radial and pedal pulses are 2/4 bilaterally. Neurological: No focal deficits. Strength and sensation are grossly intact. - Labs CBC & Chem 7: 04/16/19 06:03 04/16/19 06:03 Labs: Abnormal Lab Results - Last 24 Hours (Table) 04/15/19 04/15/19 04/15/19 Range/Units 11:01 11:56 16:43 RBC (4.30-5.90) m/uL Hgb (13.0-17.5) gm/dL Hct (39.0-53.0) % MCHC (31.0-37.0) g/dL RDW (11.5-15.5) % Plt Count (150-450) k/uL Neutrophils # (1.3-7.7) k/uL Lymphocytes # (1.0-4.8) k/uL PT 16.9 H (9.0-12.0) sec INR 1.7 H (<1.2) APTT 34.8 H (22.0-30.0) sec Sodium (137-145) mmol/L Chloride (98-107) mmol/L Carbon Dioxide (22-30) mmol/L BUN (9-20) mg/dL Creatinine (0.66-1.25) mg/dL Glucose (74-99) mg/dL POC Glucose (mg/dL) 160 H 158 H (75-99) mg/dL Calcium (8.4-10.2) mg/dL AST (17-59) U/L ALT (21-72) U/L Total Protein (6.3-8.2) g/dL Albumin (3.5-5.0) g/dL 04/15/19 04/15/19 04/15/19 Range/Units 16:50 16:50 18:59 RBC (4.30-5.90) m/uL Hgb (13.0-17.5) gm/dL Hct (39.0-53.0) % MCHC (31.0-37.0) g/dL RDW (11.5-15.5) % Plt Count (150-450) k/uL Neutrophils # (1.3-7.7) k/uL Lymphocytes # (1.0-4.8) k/uL PT (9.0-12.0) sec INR (<1.2) APTT 37.9 H (22.0-30.0) sec Sodium 134 L (137-145) mmol/L Chloride 96 L (98-107) mmol/L Carbon Dioxide (22-30) mmol/L BUN 58 H (9-20) mg/dL Creatinine 5.79 H (0.66-1.25) mg/dL Glucose 137 H (74-99) mg/dL POC Glucose (mg/dL) 227 H (75-99) mg/dL Calcium 8.0 L (8.4-10.2) mg/dL AST (17-59) U/L ALT (21-72) U/L Total Protein (6.3-8.2) g/dL Albumin (3.5-5.0) g/dL 04/15/19 04/16/19 04/16/19 Range/Units 20:46 00:11 00:21 RBC (4.30-5.90) m/uL Hgb (13.0-17.5) gm/dL Hct (39.0-53.0) % MCHC (31.0-37.0) g/dL RDW (11.5-15.5) % Plt Count (150-450) k/uL Neutrophils # (1.3-7.7) k/uL Lymphocytes # (1.0-4.8) k/uL PT (9.0-12.0) sec INR (<1.2) APTT 49.3 H (22.0-30.0) sec Sodium (137-145) mmol/L Chloride (98-107) mmol/L Carbon Dioxide (22-30) mmol/L BUN (9-20) mg/dL Creatinine (0.66-1.25) mg/dL Glucose (74-99) mg/dL POC Glucose (mg/dL) 186 H 139 H (75-99) mg/dL Calcium (8.4-10.2) mg/dL AST (17-59) U/L ALT (21-72) U/L Total Protein (6.3-8.2) g/dL Albumin (3.5-5.0) g/dL 04/16/19 04/16/19 04/16/19 Range/Units 06:03 06:03 06:03 RBC 3.58 L (4.30-5.90) m/uL Hgb 10.4 L (13.0-17.5) gm/dL Hct 34.5 L (39.0-53.0) % MCHC 30.2 L (31.0-37.0) g/dL RDW 15.8 H (11.5-15.5) % Plt Count 117 L (150-450) k/uL Neutrophils # 8.3 H (1.3-7.7) k/uL Lymphocytes # 0.6 L (1.0-4.8) k/uL PT (9.0-12.0) sec INR (<1.2) APTT 42.6 H (22.0-30.0) sec Sodium 134 L (137-145) mmol/L Chloride (98-107) mmol/L Carbon Dioxide 20 L (22-30) mmol/L BUN 70 H (9-20) mg/dL Creatinine 6.97 H (0.66-1.25) mg/dL Glucose 124 H (74-99) mg/dL POC Glucose (mg/dL) (75-99) mg/dL Calcium 8.2 L (8.4-10.2) mg/dL AST >1500 H (17-59) U/L ALT 574 H (21-72) U/L Total Protein 5.2 L (6.3-8.2) g/dL Albumin 2.9 L (3.5-5.0) g/dL 04/16/19 Range/Units 06:27 RBC (4.30-5.90) m/uL Hgb (13.0-17.5) gm/dL Hct (39.0-53.0) % MCHC (31.0-37.0) g/dL RDW (11.5-15.5) % Plt Count (150-450) k/uL Neutrophils # (1.3-7.7) k/uL Lymphocytes # (1.0-4.8) k/uL PT (9.0-12.0) sec INR (<1.2) APTT (22.0-30.0) sec Sodium (137-145) mmol/L Chloride (98-107) mmol/L Carbon Dioxide (22-30) mmol/L BUN (9-20) mg/dL Creatinine (0.66-1.25) mg/dL Glucose (74-99) mg/dL POC Glucose (mg/dL) 127 H (75-99) mg/dL Calcium (8.4-10.2) mg/dL AST (17-59) U/L ALT (21-72) U/L Total Protein (6.3-8.2) g/dL Albumin (3.5-5.0) g/dL Microbiology - Last 24 Hours (Table) 04/12/19 21:40 Blood Culture - Preliminary Blood No Growth after 72 hours Assessment and Plan (1) Transaminitis Narrative/Plan: 63-year-old male admitted with multiple constitutional symptoms of weakness fatigue diarrhea and nausea recent outpatient antibiotic therapy for possible strep throat with new onset of atrial fibrillation with RVR transient hypotension and underlying end-stage renal disease hemodialysis dependent with development of acute transaminitis. Biochemically stable. Suspect a component of hypoperfusion ischemic hepatitis secondary to hypotension and atrial fibrilla iton RVR. Ultrasound imaging reported thickening gallbladder wall chronic cholecystitis could not be excluded general surgery has been consulted. Current Visit: Yes Status: Acute Code(s): R74.0 - NONSPEC ELEV OF LEVELS OF TRANSAMNS & LACTIC ACID DEHYDRGNSE SNOMED Code(s): 591025316 (2) New onset a-fib Current Visit: Yes Status: Acute Code(s): I48.91 - UNSPECIFIED ATRIAL FIBRILLATION SNOMED Code(s): 40241062 (3) End stage renal disease on dialysis Current Visit: Yes Status: Chronic Code(s): N18.6 - END STAGE RENAL DISEASE; Z99.2 - DEPENDENCE ON RENAL DIALYSIS SNOMED Code(s): 547527804 Plan: 1. Avoid hepatotoxic medications. Viral studies requested today. Dialysis per nephrology. Continue with daily monitoring of CMP and CBC. Serologic chronic liver disease/MRCP contingent if transaminases do not improve. ERCP not recommended at this time patient's total bilirubin is within normal limits no evidence of extrahepatic obstruction per abdominal imaging studies. General surgical consult. We'll follow closely with you. Assessment and plan a care discussed with Dr. Escobar
--- NOTE | 2019-04-16 12:06 | PN ---
PROGRESS NOTE Patient is seen for followup for end-stage renal disease. He was admitted to the hospital with syncope. His blood pressure has been running low. Patient is scheduled for hemodialysis today. According to nursing staff, he has been alert and oriented x3. However, he has been lethargic and sleeping. On examination this morning, patient was sleeping. He had been arousable earlier on. Blood pressure was 110/61, heart rate 80 per minute. He is afebrile. Examination of the heart S1, S2. Examination of the lungs, bilateral breath sounds are heard. Abdomen is soft, nontender. Examination of the lower extremities shows no significant edema. LABS: Shows hemoglobin of 10.4, sodium 134, potassium 4.7, BUN 70, serum creatinine 6.9, AST more than 1500, ALT 574. ASSESSMENT: 1. End-stage renal disease, on hemodialysis on a Sunday, Sunday, Sunday schedule. Patient will be dialyzed today. 2. Hypotension maintained on midodrine. No significant ultrafiltration with hemodialysis today. 3. 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 4. New onset of atrial fibrillation. 5. Transaminitis, most likely related to hypoperfusion and hypotension, Surgery is on consult and ultrasound revealed chronic cholecystitis with gallbladder thickening. PLAN: Hemodialysis today. Continue to encourage increased oral intake. MMODL / IJN: [id number] /
[2019-04-16] MEDS: HEPARIN SOD,PORK IN 0.45% NACL 25,000 UNIT in 0.45% NACL 1 250ML.BAG IV SCH (12:08)
[2019-04-16 12:20] LABS: Glucose,Whole Blood 177 mg/dL (75-99)
--- NOTE | 2019-04-16 13:40 | P.PN ---
<Darlene Elliott Rubia - Last Filed: 04/16/19 13:35> Subjective Progress Note Date: 04/16/19 CHIEF COMPLAINT: Cholecystitis HISTORY OF PRESENT ILLNESS: Patient examined at the bedside. Denies abdominal pain. Denies nausea or vomiting. Tolerating diet. WBC 9.6. Hemoglobin 10.4. Total bilirubin 0.9. AST greater than 1500. ALT 574. PHYSICAL EXAM: VITAL SIGNS: Reviewed. GENERAL: Well-developed in no acute distress. HEENT: No sclera icterus. Extraocular movements grossly intact. Moist buccal mucosa. Head is atraumatic, normocephalic. ABDOMEN: Soft. Nondistended. Nontender. Positive bowel sounds. NEUROLOGIC: Alert and oriented. Cranial nerves II through XII grossly intact. ASSESSMENT: 1. Elevated liver enzymes with normal bilirubin 2. Thickened gallbladder wall, no signs of cholecystitis 3. ESRD on HD PLAN: Continue diet as tolerated. Do not suspect gallbladder etiology is cause of elevation in LFTs. No surgical intervention. Further workup of elevated LFTs per GI service. Nurse practitioner note has been reviewed by physician. Signing provider agrees with the documented findings, assessment, and plan of care. Objective - Vital Signs Vital signs: Vital Signs Temp 97.3 F L 04/16/19 11:47 Pulse 71 04/16/19 11:47 Resp 20 04/16/19 11:47 BP 101/56 04/16/19 11:47 Pulse Ox 97 04/16/19 11:47 Intake & Output 04/15/19 04/16/19 04/16/19 18:59 06:59 18:59 Intake Total 922.5 10 547.500 Output Total 1700 Balance -777.5 10 547.500 Weight 91 kg Intake: Intake, IV Titration 82.5 187.500 Amount Heparin Sod,Pork in 0.45% 62.5 187.500 NaCl 25,000 unit In 0.45 % NaCl 1 250ml.bag @ 11. 148 UNITS/KG/HR 10 mls/hr IV .Q24H [facility] Rx#: [id number] Sodium Chloride 0.9% 1, 20 000 ml @ 75 mls/hr IV . [id number] [facility] Rx#:[id number] Oral 840 10 360 Output: Hemodialysis 1700 Other: Voiding Method Toilet Toilet Urinal Urinal # Voids 1 - Labs CBC & Chem 7: 04/16/19 06:03 04/16/19 06:03 Labs: Abnormal Lab Results - Last 24 Hours (Table) 04/15/19 04/15/19 04/15/19 Range/Units 16:43 16:50 16:50 RBC (4.30-5.90) m/uL Hgb (13.0-17.5) gm/dL Hct (39.0-53.0) % MCHC (31.0-37.0) g/dL RDW (11.5-15.5) % Plt Count (150-450) k/uL Neutrophils # (1.3-7.7) k/uL Lymphocytes # (1.0-4.8) k/uL APTT 37.9 H (22.0-30.0) sec Sodium 134 L (137-145) mmol/L Chloride 96 L (98-107) mmol/L Carbon Dioxide (22-30) mmol/L BUN 58 H (9-20) mg/dL Creatinine 5.79 H (0.66-1.25) mg/dL Glucose 137 H (74-99) mg/dL POC Glucose (mg/dL) 158 H (75-99) mg/dL Calcium 8.0 L (8.4-10.2) mg/dL AST (17-59) U/L ALT (21-72) U/L Total Protein (6.3-8.2) g/dL Albumin (3.5-5.0) g/dL 04/15/19 04/15/19 04/16/19 Range/Units 18:59 20:46 00:11 RBC (4.30-5.90) m/uL Hgb (13.0-17.5) gm/dL Hct (39.0-53.0) % MCHC (31.0-37.0) g/dL RDW (11.5-15.5) % Plt Count (150-450) k/uL Neutrophils # (1.3-7.7) k/uL Lymphocytes # (1.0-4.8) k/uL APTT 49.3 H (22.0-30.0) sec Sodium (137-145) mmol/L Chloride (98-107) mmol/L Carbon Dioxide (22-30) mmol/L BUN (9-20) mg/dL Creatinine (0.66-1.25) mg/dL Glucose (74-99) mg/dL POC Glucose (mg/dL) 227 H 186 H (75-99) mg/dL Calcium (8.4-10.2) mg/dL AST (17-59) U/L ALT (21-72) U/L Total Protein (6.3-8.2) g/dL Albumin (3.5-5.0) g/dL 04/16/19 04/16/19 04/16/19 Range/Units 00:21 06:03 06:03 RBC 3.58 L (4.30-5.90) m/uL Hgb 10.4 L (13.0-17.5) gm/dL Hct 34.5 L (39.0-53.0) % MCHC 30.2 L (31.0-37.0) g/dL RDW 15.8 H (11.5-15.5) % Plt Count 117 L (150-450) k/uL Neutrophils # 8.3 H (1.3-7.7) k/uL Lymphocytes # 0.6 L (1.0-4.8) k/uL APTT 42.6 H (22.0-30.0) sec Sodium (137-145) mmol/L Chloride (98-107) mmol/L Carbon Dioxide (22-30) mmol/L BUN (9-20) mg/dL Creatinine (0.66-1.25) mg/dL Glucose (74-99) mg/dL POC Glucose (mg/dL) 139 H (75-99) mg/dL Calcium (8.4-10.2) mg/dL AST (17-59) U/L ALT (21-72) U/L Total Protein (6.3-8.2) g/dL Albumin (3.5-5.0) g/dL 04/16/19 04/16/19 04/16/19 Range/Units 06:03 06:27 11:59 RBC (4.30-5.90) m/uL Hgb (13.0-17.5) gm/dL Hct (39.0-53.0) % MCHC (31.0-37.0) g/dL RDW (11.5-15.5) % Plt Count (150-450) k/uL Neutrophils # (1.3-7.7) k/uL Lymphocytes # (1.0-4.8) k/uL APTT (22.0-30.0) sec Sodium 134 L (137-145) mmol/L Chloride (98-107) mmol/L Carbon Dioxide 20 L (22-30) mmol/L BUN 70 H (9-20) mg/dL Creatinine 6.97 H (0.66-1.25) mg/dL Glucose 124 H (74-99) mg/dL POC Glucose (mg/dL) 127 H 177 H (75-99) mg/dL Calcium 8.2 L (8.4-10.2) mg/dL AST >1500 H (17-59) U/L ALT 574 H (21-72) U/L Total Protein 5.2 L (6.3-8.2) g/dL Albumin 2.9 L (3.5-5.0) g/dL Microbiology - Last 24 Hours (Table) 04/12/19 21:40 Blood Culture - Preliminary Blood No Growth after 72 hours <Carter Devine - Last Filed: 04/16/19 19:49> Subjective As above. Patient's liver enzymes remain elevated. Denies abdominal pain. Tolerating diet. Will discuss further with Dr. Fan regarding appropriate workup. Objective - Vital Signs Vital signs: Vital Signs Temp 98.2 F 04/16/19 19:32 Pulse 104 H 04/16/19 19:32 Resp 18 04/16/19 19:32 BP 141/71 04/16/19 19:32 Pulse Ox 93 L 04/16/19 19:32 Intake & Output 04/16/19 04/16/19 04/17/19 06:59 18:59 06:59 Intake Total 10 1027.500 Output Total 1999 Balance 10 -972.500 Weight 91 kg Intake: Intake, IV Titration 187.500 Amount Heparin Sod,Pork in 0.45% 187.500 NaCl 25,000 unit In 0.45 % NaCl 1 250ml.bag @ 11. 148 UNITS/KG/HR 10 mls/hr IV .Q24H [facility] Rx#: [id number] Oral 10 840 Output: Hemodialysis 1999 Other: Voiding Method Toilet Toilet Urinal Urinal # Voids 1 2 # Bowel Movements 1 - Labs CBC & Chem 7: 04/16/19 06:03 04/16/19 06:03 Labs: Abnormal Lab Results - Last 24 Hours (Table) 04/15/19 04/15/19 04/16/19 Range/Units 16:50 20:46 00:11 RBC (4.30-5.90) m/uL Hgb (13.0-17.5) gm/dL Hct (39.0-53.0) % MCHC (31.0-37.0) g/dL RDW (11.5-15.5) % Plt Count (150-450) k/uL Neutrophils # (1.3-7.7) k/uL Lymphocytes # (1.0-4.8) k/uL APTT 49.3 H (22.0-30.0) sec Sodium 134 L (137-145) mmol/L Chloride 96 L (98-107) mmol/L Carbon Dioxide (22-30) mmol/L BUN 58 H (9-20) mg/dL Creatinine 5.79 H (0.66-1.25) mg/dL Glucose 137 H (74-99) mg/dL POC Glucose (mg/dL) 186 H (75-99) mg/dL Calcium 8.0 L (8.4-10.2) mg/dL AST (17-59) U/L ALT (21-72) U/L Total Protein (6.3-8.2) g/dL Albumin (3.5-5.0) g/dL 04/16/19 04/16/19 04/16/19 Range/Units 00:21 06:03 06:03 RBC 3.58 L (4.30-5.90) m/uL Hgb 10.4 L (13.0-17.5) gm/dL Hct 34.5 L (39.0-53.0) % MCHC 30.2 L (31.0-37.0) g/dL RDW 15.8 H (11.5-15.5) % Plt Count 117 L (150-450) k/uL Neutrophils # 8.3 H (1.3-7.7) k/uL Lymphocytes # 0.6 L (1.0-4.8) k/uL APTT 42.6 H (22.0-30.0) sec Sodium (137-145) mmol/L Chloride (98-107) mmol/L Carbon Dioxide (22-30) mmol/L BUN (9-20) mg/dL Creatinine (0.66-1.25) mg/dL Glucose (74-99) mg/dL POC Glucose (mg/dL) 139 H (75-99) mg/dL Calcium (8.4-10.2) mg/dL AST (17-59) U/L ALT (21-72) U/L Total Protein (6.3-8.2) g/dL Albumin (3.5-5.0) g/dL 04/16/19 04/16/19 04/16/19 Range/Units 06:03 06:27 11:59 RBC (4.30-5.90) m/uL Hgb (13.0-17.5) gm/dL Hct (39.0-53.0) % MCHC (31.0-37.0) g/dL RDW (11.5-15.5) % Plt Count (150-450) k/uL Neutrophils # (1.3-7.7) k/uL Lymphocytes # (1.0-4.8) k/uL APTT (22.0-30.0) sec Sodium 134 L (137-145) mmol/L Chloride (98-107) mmol/L Carbon Dioxide 20 L (22-30) mmol/L BUN 70 H (9-20) mg/dL Creatinine 6.97 H (0.66-1.25) mg/dL Glucose 124 H (74-99) mg/dL POC Glucose (mg/dL) 127 H 177 H (75-99) mg/dL Calcium 8.2 L (8.4-10.2) mg/dL AST >1500 H (17-59) U/L ALT 574 H (21-72) U/L Total Protein 5.2 L (6.3-8.2) g/dL Albumin 2.9 L (3.5-5.0) g/dL 04/16/19 04/16/19 Range/Units 14:00 16:36 RBC (4.30-5.90) m/uL Hgb (13.0-17.5) gm/dL Hct (39.0-53.0) % MCHC (31.0-37.0) g/dL RDW (11.5-15.5) % Plt Count (150-450) k/uL Neutrophils # (1.3-7.7) k/uL Lymphocytes # (1.0-4.8) k/uL APTT 51.3 H (22.0-30.0) sec Sodium (137-145) mmol/L Chloride (98-107) mmol/L Carbon Dioxide (22-30) mmol/L BUN (9-20) mg/dL Creatinine (0.66-1.25) mg/dL Glucose (74-99) mg/dL POC Glucose (mg/dL) 135 H (75-99) mg/dL Calcium (8.4-10.2) mg/dL AST (17-59) U/L ALT (21-72) U/L Total Protein (6.3-8.2) g/dL Albumin (3.5-5.0) g/dL Microbiology - Last 24 Hours (Table) 04/12/19 21:40 Blood Culture - Preliminary Blood No Growth after 72 hours
--- NOTE | 2019-04-16 13:47 | P.PN ---
Subjective Progress Note Date: 04/16/19 This is a 63-year-old male with past medical history significant for end-stage renal disease with dialysis Sunday and Sunday, COPD hypertension, hyperlipidemia, GERD, osteoarthritis, and BPH. Patient presented to the emergency room with complaints of shortness of breath, weakness and generalized feeling unwell. Patient states that he had fever and chills for 2 days. Patient states that he has been feeling unwell throughout the day yesterday. He has had nausea and vomiting with diarrhea that is green in color not bloody. After the vomiting and diarrhea patient developed shortness of breath which prompted him to come to the emergency room. Patient was currently being treated for strep throat with oral antibiotics and had completed a 10 day course of antibiotics with no improvement of his symptoms he was subsequently placed on a second antibiotic. Patient's last dialysis was on Sunday where they removed 2 L. Patient is able to make some urine. Patient is sitting up in bed at this time. He has no complaints of of shortness of breath. Patient does complain of generalized weakness and diarrhea that is green in color. Patient denies bloody diarrhea. Patient's to be received today 9.2 down from 11.5 yesterday, hemoglobin 10.9, potassium is 6.5, BUN 66, creatinine 7.47. Stool was negative for C. diff. Chest x-ray shows small bilateral pleural effusion. Lungs otherwise appear clear. Pulmonary vascularity appears within limits. Cardiac silhouette is enlarged. 04/14: Patient is currently undergoing hemodialysis. Apparently yesterday he was only able to tolerate one and a half hours due to low blood pressure. Nephrology started him on midodrine. Patient complains of feeling weak. He denies any chest pain or palpitations. Repeat lab work reveals Vandana BC 13.8, hemoglobin 10.4, platelet count 131. Sodium 133, potassium 6.1, chloride 94, CO2 19, BUN 65 and creatinine 7.78. Blood sugars been running between 106 and 133. Noted that his AST jumped up to 3520, ALT 415. A kind phosphatase 116. Acute hepatitis panel and ultrasound of the abdomen have been ordered. Repeat CMP ordered for 3 PM and repeat again in the morning. Patient is also followed by cardiology with plan for anticoagulation and repeat echocardiogram has been ordered. Lipitor was discontinued. 04/15: Abdominal ultrasound revealed chronic cholecystitis with gallbladder wall thickening, small amount of surrounding ascites,. Cholecystic fluid, positive Enciso sign. No common bile duct enlargement seen. HIDA scan recommended versus surgical consultation. Medical renal disease in the right kidney with cortical thinning. Partially visualized right pleural effusion. Heterogeneous hepatic echotexture most commonly related to hepatic steatosis however other hepatocellular diseases are possible. Patient denies any abdominal pain. Patient is scheduled for extra HD treatment today for ultrafiltration and a repeat for tomorrow is his usual schedule. Patient has been started on midodrine as needed. Patient did not have IV access last night and one dose of Lovenox was ordered until IV access can be obtained today. Limited echocardiogram revealed moderate generalized pericardial effusion and because of this cardiology is recommending not starting anticoagulation. I'll repeat lab work today reveals white count of 12.7, hemoglobin 9.9, BUN 63 and creatinine 6.65 potassium 5.2, sodium 132 and chloride 95, CO2 24. INR is 1.7. AST 4403, ALT 661, alkaline phosphatase 130 which is improved from yesterday afternoon draw of AST of 6472, ALT 780, alkaline phosphatase 125. Patient's bilirubin has remained normal. Acute hepatitis panel is negative. Consults have been added for GI and general surgery. 04/16: Patient has been seen by Dr. Devine from general surgery. He does not suspect choledocholithiasis or biliary obstruction given the lab values currently. Thickened gallbladder wall, and in dialysis patients. No surgical intervention planned. Patient has been seen by GI and suspect component of hypoperfusion ischemic hepatitis secondary to hypotension and atrial fibrillation with RVR. Patient to avoid hepatotoxic medications. MRCP contingent if lab values do not improve. ERCP not recommended at this time. Viral studies have been ordered by GI. The patient remains on heparin drip. Cardiology is following. Patient is scheduled for hemodialysis again today. His blood pressure is improved this morning and hopefully will tolerate for dialysis treatment. The patient has been afebrile, heart rate 71, blood pressure 101/56, pulse ox 97% on 3 L nasal cannula. WBC 9.6, hemoglobin 10.4, platelet count 117. Sodium 134, potassium 4.7, chloride 98, CO2 20, BUN 70 creatinine 6.97. Blood sugars running between 124 and 177. A repeat liver function tests reveal total bilirubin is normal at 0.9, AST improved at greater than 1500, ALT 574, alkaline phosphatase 122. PT has evaluated recommended home. Objective - Vital Signs Vital signs: Vital Signs Temp 97.7 F 04/16/19 08:15 Pulse 82 04/16/19 08:15 Resp 20 04/16/19 08:15 BP 129/71 04/16/19 08:15 Pulse Ox 98 04/16/19 08:15 Intake & Output 04/15/19 04/16/19 04/16/19 18:59 06:59 18:59 Intake Total 922.5 10 536.649 Output Total 1700 Balance -777.5 10 536.649 Weight 91 kg Intake: Intake, IV Titration 82.5 176.649 Amount Heparin Sod,Pork in 0.45% 62.5 176.649 NaCl 25,000 unit In 0.45 % NaCl 1 250ml.bag @ 11. 148 UNITS/KG/HR 10 mls/hr IV .Q24H [facility] Rx#: [id number] Sodium Chloride 0.9% 1, 20 000 ml @ 75 mls/hr IV . [id number] [facility] Rx#:[id number] Oral 840 10 360 Output: Hemodialysis 1700 Other: Voiding Method Toilet Toilet Urinal Urinal # Voids 1 - Exam Review of Systems Constitutional: Denies chills, Reports fatigue, denies fever, Reports generalized weakness Ears, nose, mouth and throat: Denies nasal congestion, denies nasal discharge, Reports sore throat Cardiovascular: Reports dyspnea on exertion Respiratory: Reports cough, Reports dyspnea Gastrointestinal: Reports diarrhea, Reports nausea, Denies vomiting, denies abdominal pain Genitourinary: Denies dysuria, Denies hematuria Musculoskeletal: Reports muscle weakness, Denies gait dysfunction, Denies limitation of motion Integumentary: Denies lesions, Denies rash, Denies wounds Neurological: Reports weakness, Denies headaches, Denies syncope, Denies vertigo Psychiatric: Denies anxiety, Denies confusion, Denies depression Endocrine: Denies excessive sweating, Denies excessive thirst Physical exam: General Appearance: Alert, cooperative, no distress, appears stated age. Generalized weakness Neck HEENT: Supple, no lymphadenopathy, no thyroid enlargement, no carotid bruits. Lungs: Clear to auscultation without crackles or wheezes no rhonchi, no deformity. Chest Wall: Chest wall normal expansion with deep inspiration no tenderness and no deformity was found on exam, no costochondral pain or discomfort. Heart: Regular rate and rhythm, S1, S2 normal, no murmur, rub or gallop. Abdomen: Soft, non-tender, no rebound or rigidity, no hepatosplenomegaly. No abdominal tenderness with palpation. Patient denies abdominal pain. Extremities: Extremities normal, atraumatic, no cyanosis or edema. Pulses: Dorsalis pedis 2+ and symmetric. Skin: Skin color, texture, tugor normal, no rashes or lesions. Neurologic: Alert oriented x3 cranial nerves II through XII intact, no motor deficit, no abnormal balance or gait - Labs CBC & Chem 7: 04/16/19 06:03 04/16/19 06:03 Labs: Abnormal Lab Results - Last 24 Hours (Table) 04/15/19 04/15/19 04/15/19 Range/Units 11:01 11:56 16:43 RBC (4.30-5.90) m/uL Hgb (13.0-17.5) gm/dL Hct (39.0-53.0) % MCHC (31.0-37.0) g/dL RDW (11.5-15.5) % Plt Count (150-450) k/uL Neutrophils # (1.3-7.7) k/uL Lymphocytes # (1.0-4.8) k/uL PT 16.9 H (9.0-12.0) sec INR 1.7 H (<1.2) APTT 34.8 H (22.0-30.0) sec Sodium (137-145) mmol/L Chloride (98-107) mmol/L Carbon Dioxide (22-30) mmol/L BUN (9-20) mg/dL Creatinine (0.66-1.25) mg/dL Glucose (74-99) mg/dL POC Glucose (mg/dL) 160 H 158 H (75-99) mg/dL Calcium (8.4-10.2) mg/dL AST (17-59) U/L ALT (21-72) U/L Total Protein (6.3-8.2) g/dL Albumin (3.5-5.0) g/dL 04/15/19 04/15/19 04/15/19 Range/Units 16:50 16:50 18:59 RBC (4.30-5.90) m/uL Hgb (13.0-17.5) gm/dL Hct (39.0-53.0) % MCHC (31.0-37.0) g/dL RDW (11.5-15.5) % Plt Count (150-450) k/uL Neutrophils # (1.3-7.7) k/uL Lymphocytes # (1.0-4.8) k/uL PT (9.0-12.0) sec INR (<1.2) APTT 37.9 H (22.0-30.0) sec Sodium 134 L (137-145) mmol/L Chloride 96 L (98-107) mmol/L Carbon Dioxide (22-30) mmol/L BUN 58 H (9-20) mg/dL Creatinine 5.79 H (0.66-1.25) mg/dL Glucose 137 H (74-99) mg/dL POC Glucose (mg/dL) 227 H (75-99) mg/dL Calcium 8.0 L (8.4-10.2) mg/dL AST (17-59) U/L ALT (21-72) U/L Total Protein (6.3-8.2) g/dL Albumin (3.5-5.0) g/dL 04/15/19 04/16/19 04/16/19 Range/Units 20:46 00:11 00:21 RBC (4.30-5.90) m/uL Hgb (13.0-17.5) gm/dL Hct (39.0-53.0) % MCHC (31.0-37.0) g/dL RDW (11.5-15.5) % Plt Count (150-450) k/uL Neutrophils # (1.3-7.7) k/uL Lymphocytes # (1.0-4.8) k/uL PT (9.0-12.0) sec INR (<1.2) APTT 49.3 H (22.0-30.0) sec Sodium (137-145) mmol/L Chloride (98-107) mmol/L Carbon Dioxide (22-30) mmol/L BUN (9-20) mg/dL Creatinine (0.66-1.25) mg/dL Glucose (74-99) mg/dL POC Glucose (mg/dL) 186 H 139 H (75-99) mg/dL Calcium (8.4-10.2) mg/dL AST (17-59) U/L ALT (21-72) U/L Total Protein (6.3-8.2) g/dL Albumin (3.5-5.0) g/dL 04/16/19 04/16/19 04/16/19 Range/Units 06:03 06:03 06:03 RBC 3.58 L (4.30-5.90) m/uL Hgb 10.4 L (13.0-17.5) gm/dL Hct 34.5 L (39.0-53.0) % MCHC 30.2 L (31.0-37.0) g/dL RDW 15.8 H (11.5-15.5) % Plt Count 117 L (150-450) k/uL Neutrophils # 8.3 H (1.3-7.7) k/uL Lymphocytes # 0.6 L (1.0-4.8) k/uL PT (9.0-12.0) sec INR (<1.2) APTT 42.6 H (22.0-30.0) sec Sodium 134 L (137-145) mmol/L Chloride (98-107) mmol/L Carbon Dioxide 20 L (22-30) mmol/L BUN 70 H (9-20) mg/dL Creatinine 6.97 H (0.66-1.25) mg/dL Glucose 124 H (74-99) mg/dL POC Glucose (mg/dL) (75-99) mg/dL Calcium 8.2 L (8.4-10.2) mg/dL AST >1500 H (17-59) U/L ALT 574 H (21-72) U/L Total Protein 5.2 L (6.3-8.2) g/dL Albumin 2.9 L (3.5-5.0) g/dL 04/16/19 Range/Units 06:27 RBC (4.30-5.90) m/uL Hgb (13.0-17.5) gm/dL Hct (39.0-53.0) % MCHC (31.0-37.0) g/dL RDW (11.5-15.5) % Plt Count (150-450) k/uL Neutrophils # (1.3-7.7) k/uL Lymphocytes # (1.0-4.8) k/uL PT (9.0-12.0) sec INR (<1.2) APTT (22.0-30.0) sec Sodium (137-145) mmol/L Chloride (98-107) mmol/L Carbon Dioxide (22-30) mmol/L BUN (9-20) mg/dL Creatinine (0.66-1.25) mg/dL Glucose (74-99) mg/dL POC Glucose (mg/dL) 127 H (75-99) mg/dL Calcium (8.4-10.2) mg/dL AST (17-59) U/L ALT (21-72) U/L Total Protein (6.3-8.2) g/dL Albumin (3.5-5.0) g/dL Microbiology - Last 24 Hours (Table) 04/12/19 21:40 Blood Culture - Preliminary Blood No Growth after 72 hours Assessment and Plan Plan: 1. New onset atrial fibrillation with RVR, probable paroxysmal atrial fibrillation. Cardiology consult appreciated. Continue heparin drip for anticoagulation. Continue metoprolol 12.5 by mouth twice a day. 2. Dehydration with diarrhea. Continue hydration. Stool culture negative for C. diff. 3. End-stage renal failure on dialysis Sunday with graft in left arm. Nephrology consult appreciated. Continue with dialysis as ordered by nephrology. 4. Hyperkalemia. Nephrology consult appreciated. Continue to monitor. 5. Generalized weakness. Continue hydration. 6. Upper respiratory infection possible strep throat. Chest x-ray negative. Was treated with antibiotics outpatient for 10 days. 7. Latent tuberculosis. Continue isoniazid. 8. Hypertension. Continue metoprolol 12.5 mg twice daily. 9. Hyperlipidemia. hold Lipitor 40 mg by mouth daily 10. Coronary artery disease with multiple vessel stenting. Continue Lipitor 11. Ischemic cardiomyopathy. Continue metoprolol 12. Osteoarthritis. Continue baclofen 5 mg by mouth twice a day, continue Stone 5/325 one tablet every 6 hours as needed for pain 13. BPH. Continue Flomax 0.4 mg daily 14. Difficulty sleeping. Melatonin 6 mg by mouth at bedtime 15. GI prophylaxis. Protonix 40 mg IV daily 16. DVT prophylaxis. Currently on heparin 17. Elevated liver function tests. Statin discontinued. Acute hepatitis panel negative. Ultrasound of the liver as above. 18. Chronic cholecystitis. GI and general surgery consult and it. Discharge plan: home. Impression and plan of care have been directed as dictated by the signing physician. Anita Amaya nurse practitioner acting as scribe for signing physician.
--- NOTE | 2019-04-16 15:07 | P.PN ---
Subjective Progress Note Date: 04/16/19 This is a 63-year-old gentleman who follows with Dr. Dunn in the office. He has a known history of hypertension, hyperlipidemia, family history of coronary artery disease, nicotine dependence, nonrheumatic mitral valve insufficiency, end-stage renal disease on hemodialysis 3 times a week, ischemic cardiomyopathy, patient underwent successful stenting of the proximal LAD first obtuse marginal and mid RCA in May 2018, he is currently receiving treatment for strep throat as an outpatient, for the past 10 days, patient also has history of TB, he presents to the hospital on this admission with symptoms of nausea, frequent diarrhea, and weakness. Chest x-ray performed on admission shows small bilateral pleural effusions and pulmonary vascularity otherwise appears normal. His EKG on presentation here showed atrial fibrillation with moderately rapid ventricular response. Patient has no prior documented history of atrial fibrillation in the past. His blood pressure on admission here 73/60 with a heart rate in the 60s, 95% on room air. Pressure this morning 105/60 with a heart rate of 90, 99% on 3 L of oxygen. White blood cell count on arrival 11.5, hemoglobin 11.5, platelet count 1:30. Sodium 131, potassium 5.2, BUN 61, creatinine 7.3, troponin 0.015. This morning's labs, white blood cell count 9.2, hemoglobin 10.9, platelet count 124. Sodium 129, potassium 0.5, BUN 66, 7.4 creatinine. At the time of my examination this morning, patient complains of feeling very weak and achy all over, continues to have frequent diarrhea stools, denies any chest discomfort, mildly short of breath. 04/14/2019 Patient was seen and examined this morning, continues to feel weak, sleepy, undergoing dialysis at present. Blood pressure this morning 92/50 with a heart rate in the 70s, afebrile, 97% on 3 L of oxygen. White blood cell count 13.8, hemoglobin 10.4, platelet count 131. Sodium 133, potassium 6.1, BUN 65 and creatinine 7.7. AST on admission 39, 3520 today, ALT on admission 16, 415 today. 04/15/2019 Patient was seen and examined this morning, continues to be on IV heparin, although his IV was discontinued this morning. Breathing is overall stable, blood pressure remains on the lower side. Patient could not tolerate much ultrafiltration yesterday due to his hypotension. A limited echocardiogram with Doppler study was performed which showed a moderate generalized pericardial effusion. For this reason we will defer starting the patient on anticoagulation at this time. 04/16/2019 Patient was seen and examined this morning, continues to be on IV heparin, hao athing is overall stable. Patient had elevated liver enzymes with normal bilirubin, thickened gallbladder wall with no signs of cholecystitis, at this time no further intervention by GI service, if the transaminase does not improve we will consider MRCP. From our perspective we will discontinue the IV heparin and initiate Eliquis today. Objective - Vital Signs Vital signs: Vital Signs Temp 97.3 F L 04/16/19 11:47 Pulse 71 04/16/19 11:47 Resp 20 04/16/19 11:47 BP 101/56 04/16/19 11:47 Pulse Ox 97 04/16/19 11:47 Intake & Output 04/15/19 04/16/19 04/16/19 18:59 06:59 18:59 Intake Total 922.5 10 787.500 Output Total 1700 Balance -777.5 10 787.500 Weight 91 kg Intake: Intake, IV Titration 82.5 187.500 Amount Heparin Sod,Pork in 0.45% 62.5 187.500 NaCl 25,000 unit In 0.45 % NaCl 1 250ml.bag @ 11. 148 UNITS/KG/HR 10 mls/hr IV .Q24H [facility] Rx#: [id number] Sodium Chloride 0.9% 1, 20 000 ml @ 75 mls/hr IV . [id number] FENG Rx#:[id number] Oral 840 10 600 Output: Hemodialysis 1700 Other: Voiding Method Toilet Toilet Urinal Urinal # Voids 1 - Exam PHYSICAL EXAMINATION: GENERAL: 63-year-old gentleman in no acute distress at the time of my examination HEENT: Head is atraumatic, normocephalic. Pupils equal, round. Sclera anicteric. Conjunctiva are clear. Mucous membranes of the mouth are moist. Neck is supple. There is no elevated jugular venous pressure. No carotid bruit is heard. HEART EXAMINATION: Heart S1-S2 at II/ systolic ejection murmur is heard at the base with radiation to the neck, II/ holosystolic murmur heard at the apex CHEST EXAMINATION: Lungs reveal mild diminished air entry to bilateral bases. ABDOMEN: Soft, nontender. Bowel sounds are heard. No organomegaly noted. EXTREMITIES: 2+ peripheral pulses with evidence of peripheral edema and no calf tenderness noted. NEUROLOGIC patient is awake, alert and oriented 3 . - Labs CBC & Chem 7: 04/16/19 06:03 04/16/19 06:03 Labs: Abnormal Lab Results - Last 24 Hours (Table) 04/15/19 04/15/19 04/15/19 Range/Units 16:43 16:50 16:50 RBC (4.30-5.90) m/uL Hgb (13.0-17.5) gm/dL Hct (39.0-53.0) % MCHC (31.0-37.0) g/dL RDW (11.5-15.5) % Plt Count (150-450) k/uL Neutrophils # (1.3-7.7) k/uL Lymphocytes # (1.0-4.8) k/uL APTT 37.9 H (22.0-30.0) sec Sodium 134 L (137-145) mmol/L Chloride 96 L (98-107) mmol/L Carbon Dioxide (22-30) mmol/L BUN 58 H (9-20) mg/dL Creatinine 5.79 H (0.66-1.25) mg/dL Glucose 137 H (74-99) mg/dL POC Glucose (mg/dL) 158 H (75-99) mg/dL Calcium 8.0 L (8.4-10.2) mg/dL AST (17-59) U/L ALT (21-72) U/L Total Protein (6.3-8.2) g/dL Albumin (3.5-5.0) g/dL 04/15/19 04/15/19 04/16/19 Range/Units 18:59 20:46 00:11 RBC (4.30-5.90) m/uL Hgb (13.0-17.5) gm/dL Hct (39.0-53.0) % MCHC (31.0-37.0) g/dL RDW (11.5-15.5) % Plt Count (150-450) k/uL Neutrophils # (1.3-7.7) k/uL Lymphocytes # (1.0-4.8) k/uL APTT 49.3 H (22.0-30.0) sec Sodium (137-145) mmol/L Chloride (98-107) mmol/L Carbon Dioxide (22-30) mmol/L BUN (9-20) mg/dL Creatinine (0.66-1.25) mg/dL Glucose (74-99) mg/dL POC Glucose (mg/dL) 227 H 186 H (75-99) mg/dL Calcium (8.4-10.2) mg/dL AST (17-59) U/L ALT (21-72) U/L Total Protein (6.3-8.2) g/dL Albumin (3.5-5.0) g/dL 04/16/19 04/16/19 04/16/19 Range/Units 00:21 06:03 06:03 RBC 3.58 L (4.30-5.90) m/uL Hgb 10.4 L (13.0-17.5) gm/dL Hct 34.5 L (39.0-53.0) % MCHC 30.2 L (31.0-37.0) g/dL RDW 15.8 H (11.5-15.5) % Plt Count 117 L (150-450) k/uL Neutrophils # 8.3 H (1.3-7.7) k/uL Lymphocytes # 0.6 L (1.0-4.8) k/uL APTT 42.6 H (22.0-30.0) sec Sodium (137-145) mmol/L Chloride (98-107) mmol/L Carbon Dioxide (22-30) mmol/L BUN (9-20) mg/dL Creatinine (0.66-1.25) mg/dL Glucose (74-99) mg/dL POC Glucose (mg/dL) 139 H (75-99) mg/dL Calcium (8.4-10.2) mg/dL AST (17-59) U/L ALT (21-72) U/L Total Protein (6.3-8.2) g/dL Albumin (3.5-5.0) g/dL 04/16/19 04/16/19 04/16/19 Range/Units 06:03 06:27 11:59 RBC (4.30-5.90) m/uL Hgb (13.0-17.5) gm/dL Hct (39.0-53.0) % MCHC (31.0-37.0) g/dL RDW (11.5-15.5) % Plt Count (150-450) k/uL Neutrophils # (1.3-7.7) k/uL Lymphocytes # (1.0-4.8) k/uL APTT (22.0-30.0) sec Sodium 134 L (137-145) mmol/L Chloride (98-107) mmol/L Carbon Dioxide 20 L (22-30) mmol/L BUN 70 H (9-20) mg/dL Creatinine 6.97 H (0.66-1.25) mg/dL Glucose 124 H (74-99) mg/dL POC Glucose (mg/dL) 127 H 177 H (75-99) mg/dL Calcium 8.2 L (8.4-10.2) mg/dL AST >1500 H (17-59) U/L ALT 574 H (21-72) U/L Total Protein 5.2 L (6.3-8.2) g/dL Albumin 2.9 L (3.5-5.0) g/dL 04/16/19 Range/Units 14:00 RBC (4.30-5.90) m/uL Hgb (13.0-17.5) gm/dL Hct (39.0-53.0) % MCHC (31.0-37.0) g/dL RDW (11.5-15.5) % Plt Count (150-450) k/uL Neutrophils # (1.3-7.7) k/uL Lymphocytes # (1.0-4.8) k/uL APTT 51.3 H (22.0-30.0) sec Sodium (137-145) mmol/L Chloride (98-107) mmol/L Carbon Dioxide (22-30) mmol/L BUN (9-20) mg/dL Creatinine (0.66-1.25) mg/dL Glucose (74-99) mg/dL POC Glucose (mg/dL) (75-99) mg/dL Calcium (8.4-10.2) mg/dL AST (17-59) U/L ALT (21-72) U/L Total Protein (6.3-8.2) g/dL Albumin (3.5-5.0) g/dL Microbiology - Last 24 Hours (Table) 04/12/19 21:40 Blood Culture - Preliminary Blood No Growth after 72 hours Assessment and Plan Plan: Assessment and plan #1 symptoms of progressive weakness with associated nausea and frequent diarrhea stools #2 strep throat, patient has been on antibiotics as an outpatient for the past 10 days #3 new-onset atrial fibrillation #4 hypertension #5 hyperlipidemia #6 coronary artery disease with multivessel stenting #7 nicotine dependence #8 non-rheumatic mitral valve insufficiency #9 ischemic cardiomyopathy #10 end-stage renal disease on hemodialysis 3 times a week Plan From cardiology's perspective we will discontinue the IV heparin today and start the patient on Eliquis milligrams one tablet by mouth twice a day. Follow along with you. DNP note has been reviewed, I agree with a documented findings and plan of care. Patient was seen and examined.
[2019-04-16 16:51] LABS: Glucose,Whole Blood 135 mg/dL (75-99)
[2019-04-16] MEDS: APIXABAN 5 MG TAB PO SCH (19:28)
[2019-04-16] MEDS: MELATONIN 3 MG TABLET PO SCH (19:29)
[2019-04-16 21:04] LABS: Glucose,Whole Blood 140 mg/dL (75-99)
[2019-04-16 22:21] LABS: EBV-EA (IgG) <0.2 AI; EBV-EBNA(IgG) >8.0 AI
[2019-04-17] MEDS: PYRIDOXINE 50 MG TAB PO SCH (04:42)
[2019-04-17] MEDS: ISONIAZID 100 MG TABLET PO SCH (04:43)
[2019-04-17] MEDS: PANTOPRAZOLE 40 MG TABLET PO SCH (06:12)
[2019-04-17] MEDS: CALCIUM ACETATE 667 MG CAP PO SCH ×2 (06:12→16:50)
[2019-04-17] MEDS: SUCRALFATE 1 GM TAB PO SCH ×3 (06:12→16:50)
[2019-04-17 06:26] LABS: Glucose,Whole Blood 117 mg/dL (75-99)
[2019-04-17 07:15] LABS: Basophils % (A) 0 %; Eosinophils # (A) 0.1 k/uL (0-0.7); Eosinophils % (A) 2 %; HCT 32.1 % (39.0-53.0); HGB 9.7 gm/dL (13.0-17.5); Hypochromasia Slight; Lymphocytes # (A) 0.8 k/uL (1.0-4.8); Lymphocytes % (A) 10 %; MCH 27.8 pg (25.0-35.0); MCHC 30.3 g/dL (31.0-37.0); MCV 91.9 fL (80.0-100.0); Mean Platelet Volume 8.8; Monocytes # (A) 0.7 k/uL (0-1.0); Monocytes % (A) 9 %; Neutrophils # (A) 5.7 k/uL (1.3-7.7); Neutrophils % (A) 77 %; Platelet Count 140 k/uL (150-450); RBC 3.49 m/uL (4.30-5.90); RDW 15.8 % (11.5-15.5); WBC 7.5 k/uL (3.8-10.6)
[2019-04-17 07:17] LABS: Albumin 2.6 g/dL (3.5-5.0); Calcium 7.9 mg/dL (8.4-10.2); Potassium 3.7 mmol/L (3.5-5.1); Total Bilirubin 0.9 mg/dL (0.2-1.3); Total Protein 4.7 g/dL (6.3-8.2)
[2019-04-17] MEDS: BACLOFEN 10 MG TAB PO SCH ×2 (07:59→19:51)
[2019-04-17] MEDS: APIXABAN 5 MG TAB PO SCH ×2 (07:59→19:51)
[2019-04-17] MEDS: TAMSULOSIN 0.4 MG CAP.ER.24H PO SCH (07:59)
[2019-04-17] MEDS: DORZOLAMIDE LEFT EYE SCH (07:59)
[2019-04-17] MEDS: METOPROLOL TARTRATE 12.5 MG TAB PO SCH ×2 (07:59→19:50)
[2019-04-17] MEDS: BRIMONIDINE LEFT EYE SCH (07:59)
[2019-04-17] MEDS: SODIUM CHLORIDE 0.9% 1,000 ML IV SCH (08:00)
[2019-04-17] MEDS ORDERED: diphenhydrAMINE 25 MG CAP PO STA (08:10)
[2019-04-17] MEDS ORDERED: methylPREDNISolone SOD SUCCI 40 MG/ML 1 ML VIAL IV STA (08:10)
--- NOTE | 2019-04-17 10:21 | P.PN ---
Subjective Progress Note Date: 04/17/19 Principal diagnosis: Transaminitis Feels well this morning. LFTs improving. Viral studies reviewed. Objective - Vital Signs Vital signs: Vital Signs Temp 97.8 F 04/17/19 08:00 Pulse 85 04/17/19 08:00 Resp 20 04/17/19 08:00 BP 134/72 04/17/19 08:00 Pulse Ox 93 L 04/17/19 08:00 Intake & Output 04/16/19 04/17/19 04/17/19 18:59 06:59 18:59 Intake Total 1027.500 240 240 Output Total 1999 Balance -972.500 240 240 Weight 93 kg Intake: Intake, IV Titration 187.500 Amount Heparin Sod,Pork in 0.45% 187.500 NaCl 25,000 unit In 0.45 % NaCl 1 250ml.bag @ 11. 148 UNITS/KG/HR 10 mls/hr IV .Q24H [facility] Rx#: [id number] Oral 840 240 240 Output: Hemodialysis 1999 Other: Voiding Method Toilet Urinal # Voids 2 # Bowel Movements 1 - Exam General appearance: The patient is alert, oriented, in no acute distress. HET: Head is normocephalic and atraumatic. Pupils are equal and reactive. Oropharynx is clear without lesions. Neck: Supple without lymphadenopathy. Trachea midline. Heart: S1 S2. Regular rate and rhythm. Lungs: No crackles or wheezes are heard. Abdomen: Soft, nontender, nondistended with bowel sounds. No peritoneal signs. No palpable organomegaly or masses. Extremities: Normal skin color and turgor. No cyanosis, rash, ulceration, clubbing, or edema. Radial and pedal pulses are 2/4 bilaterally. Neurological: No focal deficits. Strength and sensation are grossly intact. - Labs CBC & Chem 7: 04/17/19 06:12 04/17/19 06:12 Labs: Abnormal Lab Results - Last 24 Hours (Table) 04/16/19 04/16/19 04/16/19 Range/Units 11:59 14:00 14:00 RBC (4.30-5.90) m/uL Hgb (13.0-17.5) gm/dL Hct (39.0-53.0) % MCHC (31.0-37.0) g/dL RDW (11.5-15.5) % Plt Count (150-450) k/uL Lymphocytes # (1.0-4.8) k/uL APTT 51.3 H (22.0-30.0) sec Sodium (137-145) mmol/L Chloride (98-107) mmol/L BUN (9-20) mg/dL Creatinine (0.66-1.25) mg/dL Glucose (74-99) mg/dL POC Glucose (mg/dL) 177 H (75-99) mg/dL Calcium (8.4-10.2) mg/dL AST (17-59) U/L ALT (21-72) U/L Total Protein (6.3-8.2) g/dL Albumin (3.5-5.0) g/dL CMV IgG Ab Reactive H (Non-Reactive) EBV Capsid Ag IgG Intrp (NEGATIVE) EBV Nuc Ag IgG Interp (NEGATIVE) 04/16/19 04/16/19 04/16/19 Range/Units 14:00 16:36 20:57 RBC (4.30-5.90) m/uL Hgb (13.0-17.5) gm/dL Hct (39.0-53.0) % MCHC (31.0-37.0) g/dL RDW (11.5-15.5) % Plt Count (150-450) k/uL Lymphocytes # (1.0-4.8) k/uL APTT (22.0-30.0) sec Sodium (137-145) mmol/L Chloride (98-107) mmol/L BUN (9-20) mg/dL Creatinine (0.66-1.25) mg/dL Glucose (74-99) mg/dL POC Glucose (mg/dL) 135 H 140 H (75-99) mg/dL Calcium (8.4-10.2) mg/dL AST (17-59) U/L ALT (21-72) U/L Total Protein (6.3-8.2) g/dL Albumin (3.5-5.0) g/dL CMV IgG Ab (Non-Reactive) EBV Capsid Ag IgG Intrp POSITIVE H (NEGATIVE) EBV Nuc Ag IgG Interp POSITIVE H (NEGATIVE) 08/15/19 08/15/19 08/15/19 Range/Units 06:12 06:12 06:25 RBC 3.49 L (4.30-5.90) m/uL Hgb 9.7 L (13.0-17.5) gm/dL Hct 32.1 L (39.0-53.0) % MCHC 30.3 L (31.0-37.0) g/dL RDW 15.8 H (11.5-15.5) % Plt Count 140 L (150-450) k/uL Lymphocytes # 0.8 L (1.0-4.8) k/uL APTT (22.0-30.0) sec Sodium 134 L (137-145) mmol/L Chloride 97 L (98-107) mmol/L BUN 51 H (9-20) mg/dL Creatinine 5.41 H (0.66-1.25) mg/dL Glucose 113 H (74-99) mg/dL POC Glucose (mg/dL) 117 H (75-99) mg/dL Calcium 7.9 L (8.4-10.2) mg/dL AST 511 H (17-59) U/L ALT 371 H (21-72) U/L Total Protein 4.7 L (6.3-8.2) g/dL Albumin 2.6 L (3.5-5.0) g/dL CMV IgG Ab (Non-Reactive) EBV Capsid Ag IgG Intrp (NEGATIVE) EBV Nuc Ag IgG Interp (NEGATIVE) Microbiology - Last 24 Hours (Table) 04/12/19 21:40 Blood Culture - Preliminary Blood No Growth after 96 hours Assessment and Plan (1) Transaminitis Narrative/Plan: 63-year-old male admitted with multiple constitutional symptoms of weakness fatigue diarrhea and nausea recent outpatient antibiotic therapy for possible strep throat with new onset of atrial fibrillation with RVR transient hypotension and underlying end-stage renal disease hemodialysis dependent with development of acute transaminitis. Biochemically stable. Suspect a component of hypoperfusion ischemic hepatitis secondary to hypotension and atrial fibrillaiton RVR. Current Visit: Yes Status: Acute Code(s): R74.0 - NONSPEC ELEV OF LEVELS OF TRANSAMNS & LACTIC ACID DEHYDRGNSE SNOMED Code(s): 999156705 (2) New onset a-fib Current Visit: Yes Status: Acute Code(s): I48.91 - UNSPECIFIED ATRIAL FIBRILLATION SNOMED Code(s): 72795539 (3) End stage renal disease on dialysis Current Visit: Yes Status: Chronic Code(s): N18.6 - END STAGE RENAL DISEASE; Z99.2 - DEPENDENCE ON RENAL DIALYSIS SNOMED Code(s): 128453140 Plan: 1. Continue w/ medical nephrology management. Will follow as needed. Assessment and plan of care discussed w/ Dr. Escobar
--- NOTE | 2019-04-17 11:43 | P.PN ---
Subjective Progress Note Date: 04/17/19 This is a 63-year-old gentleman who follows with Dr. Dunn in the office. He has a known history of hypertension, hyperlipidemia, family history of coronary artery disease, nicotine dependence, nonrheumatic mitral valve insufficiency, end-stage renal disease on hemodialysis 3 times a week, ischemic cardiomyopathy, patient underwent successful stenting of the proximal LAD first obtuse marginal and mid RCA in May 2018, he is currently receiving treatment for strep throat as an outpatient, for the past 10 days, patient also has history of TB, he presents to the hospital on this admission with symptoms of nausea, frequent diarrhea, and weakness. Chest x-ray performed on admission shows small bilateral pleural effusions and pulmonary vascularity otherwise appears normal. His EKG on presentation here showed atrial fibrillation with moderately rapid ventricular response. Patient has no prior documented history of atrial fibrillation in the past. His blood pressure on admission here 73/60 with a heart rate in the 60s, 95% on room air. Pressure this morning 105/60 with a heart rate of 90, 99% on 3 L of oxygen. White blood cell count on arrival 11.5, hemoglobin 11.5, platelet count 1:30. Sodium 131, potassium 5.2, BUN 61, creatinine 7.3, troponin 0.015. This morning's labs, white blood cell count 9.2, hemoglobin 10.9, platelet count 124. Sodium 129, potassium 0.5, BUN 66, 7.4 creatinine. At the time of my examination this morning, patient complains of feeling very weak and achy all over, continues to have frequent diarrhea stools, denies any chest discomfort, mildly short of breath. 04/14/2019 Patient was seen and examined this morning, continues to feel weak, sleepy, undergoing dialysis at present. Blood pressure this morning 92/50 with a heart rate in the 70s, afebrile, 97% on 3 L of oxygen. White blood cell count 13.8, hemoglobin 10.4, platelet count 131. Sodium 133, potassium 6.1, BUN 65 and creatinine 7.7. AST on admission 39, 3520 today, ALT on admission 16, 415 today. 04/15/2019 Patient was seen and examined this morning, continues to be on IV heparin, although his IV was discontinued this morning. Breathing is overall stable, blood pressure remains on the lower side. Patient could not tolerate much ultrafiltration yesterday due to his hypotension. A limited echocardiogram with Doppler study was performed which showed a moderate generalized pericardial effusion. For this reason we will defer starting the patient on anticoagulation at this time. 04/16/2019 Patient was seen and examined this morning, continues to be on IV heparin, hao athing is overall stable. Patient had elevated liver enzymes with normal bilirubin, thickened gallbladder wall with no signs of cholecystitis, at this time no further intervention by GI service, if the transaminase does not improve we will consider MRCP. From our perspective we will discontinue the IV heparin and initiate Eliquis today. 04/17/2019 Patient seen and examined this morning, feels well overall, LFTs are improving. I pressure 134/70 with a heart rate of 80, 93% on room air. Objective - Vital Signs Vital signs: Vital Signs Temp 97.8 F 04/17/19 08:00 Pulse 85 04/17/19 08:00 Resp 20 04/17/19 08:00 BP 134/72 04/17/19 08:00 Pulse Ox 93 L 04/17/19 08:00 Intake & Output 04/16/19 04/17/19 04/17/19 18:59 06:59 18:59 Intake Total 1027.500 240 240 Output Total 1999 Balance -972.500 240 240 Weight 93 kg Intake: Intake, IV Titration 187.500 Amount Heparin Sod,Pork in 0.45% 187.500 NaCl 25,000 unit In 0.45 % NaCl 1 250ml.bag @ 11. 148 UNITS/KG/HR 10 mls/hr IV .Q24H [facility] Rx#: [id number] Oral 840 240 240 Output: Hemodialysis 1999 Other: Voiding Method Toilet Urinal # Voids 2 # Bowel Movements 1 - Exam PHYSICAL EXAMINATION: GENERAL: 63-year-old gentleman in no acute distress at the time of my examination HEENT: Head is atraumatic, normocephalic. Pupils equal, round. Sclera anicteric. Conjunctiva are clear. Mucous membranes of the mouth are moist. Neck is supple. There is no elevated jugular venous pressure. No carotid bruit is heard. HEART EXAMINATION: Heart S1-S2 at II/ systolic ejection murmur is heard at the base with radiation to the neck, II/ holosystolic murmur heard at the apex CHEST EXAMINATION: Lungs reveal mild diminished air entry to bilateral bases. ABDOMEN: Soft, nontender. Bowel sounds are heard. No organomegaly noted. EXTREMITIES: 2+ peripheral pulses with evidence of peripheral edema and no calf tenderness noted. NEUROLOGIC patient is awake, alert and oriented 3 . - Labs CBC & Chem 7: 04/17/19 06:12 04/17/19 06:12 Labs: Abnormal Lab Results - Last 24 Hours (Table) 04/16/19 04/16/19 04/16/19 Range/Units 11:59 14:00 14:00 RBC (4.30-5.90) m/uL Hgb (13.0-17.5) gm/dL Hct (39.0-53.0) % MCHC (31.0-37.0) g/dL RDW (11.5-15.5) % Plt Count (150-450) k/uL Lymphocytes # (1.0-4.8) k/uL APTT 51.3 H (22.0-30.0) sec Sodium (137-145) mmol/L Chloride (98-107) mmol/L BUN (9-20) mg/dL Creatinine (0.66-1.25) mg/dL Glucose (74-99) mg/dL POC Glucose (mg/dL) 177 H (75-99) mg/dL Calcium (8.4-10.2) mg/dL AST (17-59) U/L ALT (21-72) U/L Total Protein (6.3-8.2) g/dL Albumin (3.5-5.0) g/dL CMV IgG Ab Reactive H (Non-Reactive) EBV Capsid Ag IgG Intrp (NEGATIVE) EBV Nuc Ag IgG Interp (NEGATIVE) 04/16/19 04/16/19 04/16/19 Range/Units 14:00 16:36 20:57 RBC (4.30-5.90) m/uL Hgb (13.0-17.5) gm/dL Hct (39.0-53.0) % MCHC (31.0-37.0) g/dL RDW (11.5-15.5) % Plt Count (150-450) k/uL Lymphocytes # (1.0-4.8) k/uL APTT (22.0-30.0) sec Sodium (137-145) mmol/L Chloride (98-107) mmol/L BUN (9-20) mg/dL Creatinine (0.66-1.25) mg/dL Glucose (74-99) mg/dL POC Glucose (mg/dL) 135 H 140 H (75-99) mg/dL Calcium (8.4-10.2) mg/dL AST (17-59) U/L ALT (21-72) U/L Total Protein (6.3-8.2) g/dL Albumin (3.5-5.0) g/dL CMV IgG Ab (Non-Reactive) EBV Capsid Ag IgG Intrp POSITIVE H (NEGATIVE) EBV Nuc Ag IgG Interp POSITIVE H (NEGATIVE) 04/17/19 04/17/19 04/17/19 Range/Units 06:12 06:12 06:25 RBC 3.49 L (4.30-5.90) m/uL Hgb 9.7 L (13.0-17.5) gm/dL Hct 32.1 L (39.0-53.0) % MCHC 30.3 L (31.0-37.0) g/dL RDW 15.8 H (11.5-15.5) % Plt Count 140 L (150-450) k/uL Lymphocytes # 0.8 L (1.0-4.8) k/uL APTT (22.0-30.0) sec Sodium 134 L (137-145) mmol/L Chloride 97 L (98-107) mmol/L BUN 51 H (9-20) mg/dL Creatinine 5.41 H (0.66-1.25) mg/dL Glucose 113 H (74-99) mg/dL POC Glucose (mg/dL) 117 H (75-99) mg/dL Calcium 7.9 L (8.4-10.2) mg/dL AST 511 H (17-59) U/L ALT 371 H (21-72) U/L Total Protein 4.7 L (6.3-8.2) g/dL Albumin 2.6 L (3.5-5.0) g/dL CMV IgG Ab (Non-Reactive) EBV Capsid Ag IgG Intrp (NEGATIVE) EBV Nuc Ag IgG Interp (NEGATIVE) Microbiology - Last 24 Hours (Table) 04/12/19 21:40 Blood Culture - Preliminary Blood No Growth after 96 hours Assessment and Plan Plan: Assessment and plan #1 symptoms of progressive weakness with associated nausea and frequent diarrhea stools #2 strep throat, patient has been on antibiotics as an outpatient for the past 10 days #3 new-onset atrial fibrillation #4 hypertension #5 hyperlipidemia #6 coronary artery disease with multivessel stenting #7 nicotine dependence #8 non-rheumatic mitral valve insufficiency #9 ischemic cardiomyopathy #10 end-stage renal disease on hemodialysis 3 times a week Plan From cardiology's perspective, we'll recommend to continue this patient on his current medications. We will follow him along with you now on an as-needed basis only, please don't hesitate to call with any questions at all. DNP note has been reviewed, I agree with a documented findings and plan of care. Patient was seen and examined.
[2019-04-17 11:50] LABS: Glucose,Whole Blood 153 mg/dL (75-99)
--- NOTE | 2019-04-17 15:23 | P.PN ---
Subjective Progress Note Date: 04/17/19 This is a 63-year-old male with past medical history significant for end-stage renal disease with dialysis Sunday and Sunday, COPD hypertension, hyperlipidemia, GERD, osteoarthritis, and BPH. Patient presented to the emergency room with complaints of shortness of breath, weakness and generalized feeling unwell. Patient states that he had fever and chills for 2 days. Patient states that he has been feeling unwell throughout the day yesterday. He has had nausea and vomiting with diarrhea that is green in color not bloody. After the vomiting and diarrhea patient developed shortness of breath which prompted him to come to the emergency room. Patient was currently being treated for strep throat with oral antibiotics and had completed a 10 day course of antibiotics with no improvement of his symptoms he was subsequently placed on a second antibiotic. Patient's last dialysis was on Sunday where they removed 2 L. Patient is able to make some urine. Patient is sitting up in bed at this time. He has no complaints of of shortness of breath. Patient does complain of generalized weakness and diarrhea that is green in color. Patient denies bloody diarrhea. Patient's to be received today 9.2 down from 11.5 yesterday, hemoglobin 10.9, potassium is 6.5, BUN 66, creatinine 7.47. Stool was negative for C. diff. Chest x-ray shows small bilateral pleural effusion. Lungs otherwise appear clear. Pulmonary vascularity appears within limits. Cardiac silhouette is enlarged. 04/14: Patient is currently undergoing hemodialysis. Apparently yesterday he was only able to tolerate one and a half hours due to low blood pressure. Nephrology started him on midodrine. Patient complains of feeling weak. He denies any chest pain or palpitations. Repeat lab work reveals Vandana BC 13.8, hemoglobin 10.4, platelet count 131. Sodium 133, potassium 6.1, chloride 94, CO2 19, BUN 65 and creatinine 7.78. Blood sugars been running between 106 and 133. Noted that his AST jumped up to 3520, ALT 415. A kind phosphatase 116. Acute hepatitis panel and ultrasound of the abdomen have been ordered. Repeat CMP ordered for 3 PM and repeat again in the morning. Patient is also followed by cardiology with plan for anticoagulation and repeat echocardiogram has been ordered. Lipitor was discontinued. 04/15: Abdominal ultrasound revealed chronic cholecystitis with gallbladder wall thickening, small amount of surrounding ascites,. Cholecystic fluid, positive Enciso sign. No common bile duct enlargement seen. HIDA scan recommended versus surgical consultation. Medical renal disease in the right kidney with cortical thinning. Partially visualized right pleural effusion. Heterogeneous hepatic echotexture most commonly related to hepatic steatosis however other hepatocellular diseases are possible. Patient denies any abdominal pain. Patient is scheduled for extra HD treatment today for ultrafiltration and a repeat for tomorrow is his usual schedule. Patient has been started on midodrine as needed. Patient did not have IV access last night and one dose of Lovenox was ordered until IV access can be obtained today. Limited echocardiogram revealed moderate generalized pericardial effusion and because of this cardiology is recommending not starting anticoagulation. I'll repeat lab work today reveals white count of 12.7, hemoglobin 9.9, BUN 63 and creatinine 6.65 potassium 5.2, sodium 132 and chloride 95, CO2 24. INR is 1.7. AST 4403, ALT 661, alkaline phosphatase 130 which is improved from yesterday afternoon draw of AST of 6472, ALT 780, alkaline phosphatase 125. Patient's bilirubin has remained normal. Acute hepatitis panel is negative. Consults have been added for GI and general surgery. 04/16: Patient has been seen by Dr. Devine from general surgery. He does not suspect choledocholithiasis or biliary obstruction given the lab values currently. Thickened gallbladder wall, and in dialysis patients. No surgical intervention planned. Patient has been seen by GI and suspect component of hypoperfusion ischemic hepatitis secondary to hypotension and atrial fibrillation with RVR. Patient to avoid hepatotoxic medications. MRCP contingent if lab values do not improve. ERCP not recommended at this time. Viral studies have been ordered by GI. The patient remains on heparin drip. Cardiology is following. Patient is scheduled for hemodialysis again today. His blood pressure is improved this morning and hopefully will tolerate for dialysis treatment. The patient has been afebrile, heart rate 71, blood pressure 101/56, pulse ox 97% on 3 L nasal cannula. WBC 9.6, hemoglobin 10.4, platelet count 117. Sodium 134, potassium 4.7, chloride 98, CO2 20, BUN 70 creatinine 6.97. Blood sugars running between 124 and 177. A repeat liver function tests reveal total bilirubin is normal at 0.9, AST improved at greater than 1500, ALT 574, alkaline phosphatase 122. PT has evaluated recommended home. 04/17: This morning, patient complained to his nurse that he had sore throat that started at midnight and subsequently was noted to have swelling in his face bilaterally and the cheeks. One dose of Benadryl and one dose of Solu-Medrol given which patient had complete resolution. Only new medication at this point is eliquis. Repeat liver function testing feels total bilirubin 0.9, AST 511, ALT 371, alkaline phosphatase 120. We will plan to continue monitoring him overnight and possible discharge tomorrow. Objective - Vital Signs Vital signs: Vital Signs Temp 97.8 F 04/17/19 08:00 Pulse 95 04/17/19 12:00 Resp 20 04/17/19 12:00 BP 145/86 04/17/19 12:00 Pulse Ox 93 L 04/17/19 12:00 Intake & Output 04/16/19 04/17/19 04/17/19 18:59 06:59 18:59 Intake Total 1027.500 240 240 Output Total 1999 Balance -972.500 240 240 Weight 93 kg Intake: Intake, IV Titration 187.500 Amount Heparin Sod,Pork in 0.45% 187.500 NaCl 25,000 unit In 0.45 % NaCl 1 250ml.bag @ 11. 148 UNITS/KG/HR 10 mls/hr IV .Q24H [facility] Rx#: [id number] Oral 840 240 240 Output: Hemodialysis 1999 Other: Voiding Method Toilet Urinal # Voids 2 # Bowel Movements 1 - Exam Review of Systems Constitutional: Denies chills, Reports fatigue, denies fever, Reports generalized weakness Ears, nose, mouth and throat: Denies nasal congestion, denies nasal discharge, Reports sore throat Cardiovascular: Reports dyspnea on exertion Respiratory: Reports cough, Reports dyspnea Gastrointestinal: Reports diarrhea, Reports nausea, Denies vomiting, denies abdominal pain Genitourinary: Denies dysuria, Denies hematuria Musculoskeletal: Reports muscle weakness, Denies gait dysfunction, Denies limitation of motion Integumentary: Denies lesions, Denies rash, Denies wounds Neurological: Reports weakness, Denies headaches, Denies syncope, Denies vertigo Psychiatric: Denies anxiety, Denies confusion, Denies depression Endocrine: Denies excessive sweating, Denies excessive thirst Physical exam: General Appearance: Alert, cooperative, no distress, appears stated age. Generalized weakness Neck HEENT: Supple, no lymphadenopathy, no thyroid enlargement, no carotid bruits. Lungs: Clear to auscultation without crackles or wheezes no rhonchi, no deformity. Heart: Regular rate and rhythm, S1, S2 normal, no murmur, rub or gallop. Abdomen: Soft, non-tender, no rebound or rigidity, no hepatosplenomegaly. No abdominal tenderness with palpation. Patient denies abdominal pain. Extremities: Extremities normal, atraumatic, no cyanosis or edema. Pulses: Dorsalis pedis 2+ and symmetric. Skin: Skin color, texture, tugor normal, no rashes or lesions. Neurologic: Alert oriented x3 cranial nerves II through XII intact, no motor deficit, no abnormal balance or gait - Labs CBC & Chem 7: 04/17/19 06:12 04/17/19 06:12 Labs: Abnormal Lab Results - Last 24 Hours (Table) 04/16/19 04/16/19 04/16/19 Range/Units 14:00 14:00 14:00 RBC (4.30-5.90) m/uL Hgb (13.0-17.5) gm/dL Hct (39.0-53.0) % MCHC (31.0-37.0) g/dL RDW (11.5-15.5) % Plt Count (150-450) k/uL Lymphocytes # (1.0-4.8) k/uL APTT 51.3 H (22.0-30.0) sec Sodium (137-145) mmol/L Chloride (98-107) mmol/L BUN (9-20) mg/dL Creatinine (0.66-1.25) mg/dL Glucose (74-99) mg/dL POC Glucose (mg/dL) (75-99) mg/dL Calcium (8.4-10.2) mg/dL AST (17-59) U/L ALT (21-72) U/L Total Protein (6.3-8.2) g/dL Albumin (3.5-5.0) g/dL CMV IgG Ab Reactive H (Non-Reactive) EBV Capsid Ag IgG Intrp POSITIVE H (NEGATIVE) EBV Nuc Ag IgG Interp POSITIVE H (NEGATIVE) 04/16/19 04/16/19 04/17/19 Range/Units 16:36 20:57 06:12 RBC 3.49 L (4.30-5.90) m/uL Hgb 9.7 L (13.0-17.5) gm/dL Hct 32.1 L (39.0-53.0) % MCHC 30.3 L (31.0-37.0) g/dL RDW 15.8 H (11.5-15.5) % Plt Count 140 L (150-450) k/uL Lymphocytes # 0.8 L (1.0-4.8) k/uL APTT (22.0-30.0) sec Sodium (137-145) mmol/L Chloride (98-107) mmol/L BUN (9-20) mg/dL Creatinine (0.66-1.25) mg/dL Glucose (74-99) mg/dL POC Glucose (mg/dL) 135 H 140 H (75-99) mg/dL Calcium (8.4-10.2) mg/dL AST (17-59) U/L ALT (21-72) U/L Total Protein (6.3-8.2) g/dL Albumin (3.5-5.0) g/dL CMV IgG Ab (Non-Reactive) EBV Capsid Ag IgG Intrp (NEGATIVE) EBV Nuc Ag IgG Interp (NEGATIVE) 04/17/19 04/17/19 04/17/19 Range/Units 06:12 06:25 11:48 RBC (4.30-5.90) m/uL Hgb (13.0-17.5) gm/dL Hct (39.0-53.0) % MCHC (31.0-37.0) g/dL RDW (11.5-15.5) % Plt Count (150-450) k/uL Lymphocytes # (1.0-4.8) k/uL APTT (22.0-30.0) sec Sodium 134 L (137-145) mmol/L Chloride 97 L (98-107) mmol/L BUN 51 H (9-20) mg/dL Creatinine 5.41 H (0.66-1.25) mg/dL Glucose 113 H (74-99) mg/dL POC Glucose (mg/dL) 117 H 153 H (75-99) mg/dL Calcium 7.9 L (8.4-10.2) mg/dL AST 511 H (17-59) U/L ALT 371 H (21-72) U/L Total Protein 4.7 L (6.3-8.2) g/dL Albumin 2.6 L (3.5-5.0) g/dL CMV IgG Ab (Non-Reactive) EBV Capsid Ag IgG Intrp (NEGATIVE) EBV Nuc Ag IgG Interp (NEGATIVE) Microbiology - Last 24 Hours (Table) 04/12/19 21:40 Blood Culture - Preliminary Blood No Growth after 96 hours Assessment and Plan Plan: 1. New onset atrial fibrillation with RVR, probable paroxysmal atrial fibr illation. Cardiology consult appreciated. Continue eliquis. Continue metoprolol 12.5 by mouth twice a day. 2. Dehydration with diarrhea. Continue hydration. Stool culture negative for C. diff. 3. End-stage renal failure on dialysis Sunday with graft in left arm. Nephrology consult appreciated. Continue with dialysis as ordered by nephrology. 4. Hyperkalemia. Nephrology consult appreciated. Continue to monitor. 5. Generalized weakness. Continue hydration. 6. Upper respiratory infection possible strep throat. Chest x-ray negative. Was treated with antibiotics outpatient for 10 days. 7. Latent tuberculosis. Continue isoniazid. 8. Hypertension. Continue metoprolol 12.5 mg twice daily. 9. Hyperlipidemia. hold Lipitor 40 mg by mouth daily 10. Coronary artery disease with multiple vessel stenting. Continue Lipitor 11. Ischemic cardiomyopathy. Continue metoprolol 12. Osteoarthritis. Continue baclofen 5 mg by mouth twice a day, continue [place] 5/325 one tablet every 6 hours as needed for pain 13. BPH. Continue Flomax 0.4 mg daily 14. Difficulty sleeping. Melatonin 6 mg by mouth at bedtime 15. GI prophylaxis. Protonix 40 mg IV daily 16. DVT prophylaxis. Currently on heparin 17. Elevated liver function tests. Statin discontinued. Acute hepatitis panel negative. Ultrasound of the liver as above. 18. Chronic cholecystitis. GI and general surgery consult and it. 19. Facial swelling, resolved with 1 dose of Benadryl and Solu-Medrol. Continue to monitor. Discharge plan: home tomorrow. Impression and plan of care have been directed as dictated by the signing physician. Anita Amaya nurse practitioner acting as scribe for signing physician.
[2019-04-17 16:52] LABS: Glucose,Whole Blood 200 mg/dL (75-99)
--- NOTE | 2019-04-17 17:07 | PN ---
PROGRESS NOTE Patient is seen for followup for end-stage renal disease. He is maintained on a Sunday, Sunday, Sunday schedule. Patient had his dialysis yesterday. He tolerated it well. He continues to be quite lethargic and sleepy. This morning he is barely arousable. On examination, blood pressure was 134/72, heart rate 85 per minute. He is afebrile. EXAMINATION OF THE HEART: S1 and S2. EXAMINATION OF LUNGS: Decreased breath sounds in bases. ABDOMEN: Soft, non-tender. Examination of lower extremities shows no evidence of edema. Labs show hemoglobin 9.7, sodium 134, BUN 51, serum creatinine 5.4. ASSESSMENT: 1. End-stage renal disease, on hemodialysis on a Sunday, Sunday, Sunday schedule. Patient will be dialyzed in a.m. 2. Encephalopathy; etiology unclear. Patient remains quite weak. He does open his eyes but falls back to sleep. Medications are reviewed. 3. New-onset atrial fibrillation with rapid ventricular response, maintained on metoprolol. Rate is currently controlled. 4. Ischemic cardiomyopathy. 5. 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 6. Chronic kidney disease mineral bone disorder, maintained on PhosLo. PLAN: Hemodialysis in a.m. Continue off of IV fluids. Encourage increased oral intake. MMODL / IJN: [id number] /
[2019-04-17] MEDS: MELATONIN 3 MG TABLET PO SCH (19:29)
[2019-04-17 20:48] LABS: Glucose,Whole Blood 200 mg/dL (75-99)
[2019-04-18] MEDS: PYRIDOXINE 50 MG TAB PO SCH (04:15)
[2019-04-18] MEDS: ISONIAZID 100 MG TABLET PO SCH (04:15)
[2019-04-18] MEDS: CALCIUM ACETATE 667 MG CAP PO SCH ×2 (05:58→11:59)
[2019-04-18] MEDS: SUCRALFATE 1 GM TAB PO SCH ×2 (05:58→11:59)
[2019-04-18] MEDS: PANTOPRAZOLE 40 MG TABLET PO SCH (05:59)
[2019-04-18 06:45] LABS: Glucose,Whole Blood 158 mg/dL (75-99)
[2019-04-18 07:47] LABS: Anisocytosis Slight; Basophils % (A) 0 %; Eosinophils % (A) 0 %; HCT 34.2 % (39.0-53.0); HGB 10.7 gm/dL (13.0-17.5); Lymphocytes # (A) 0.6 k/uL (1.0-4.8); Lymphocytes % (A) 6 %; MCH 28.5 pg (25.0-35.0); MCHC 31.2 g/dL (31.0-37.0); MCV 91.1 fL (80.0-100.0); Monocytes # (A) 0.6 k/uL (0-1.0); Monocytes % (A) 6 %; Neutrophils # (A) 9.1 k/uL (1.3-7.7); Neutrophils % (A) 87 %; Platelet Count 155 k/uL (150-450); RBC 3.75 m/uL (4.30-5.90); RDW 16.3 % (11.5-15.5); WBC 10.4 k/uL (3.8-10.6)
[2019-04-18 07:52] VITALS: RESP 16
[2019-04-18 08:24] LABS: Calcium 8.6 mg/dL (8.4-10.2); Potassium 4.2 mmol/L (3.5-5.1); Total Bilirubin 1.1 mg/dL (0.2-1.3); Total Protein 5.2 g/dL (6.3-8.2)
[2019-04-18] MEDS: DORZOLAMIDE LEFT EYE SCH (08:36)
[2019-04-18] MEDS: BRIMONIDINE LEFT EYE SCH (08:36)
[2019-04-18] MEDS: TAMSULOSIN 0.4 MG CAP.ER.24H PO SCH (08:46)
[2019-04-18] MEDS: METOPROLOL TARTRATE 12.5 MG TAB PO SCH (08:46)
[2019-04-18] MEDS: APIXABAN 5 MG TAB PO SCH (08:46)
[2019-04-18] MEDS: BACLOFEN 10 MG TAB PO SCH (08:46)
[2019-04-18 11:20] VITALS: BP 140/85; PULSE 79; TEMP 97.6
[2019-04-18 11:46] LABS: Glucose,Whole Blood 139 mg/dL (75-99)
[2019-04-18 13:12] VITALS: BMI 33.2
--- NOTE | 2019-04-18 13:53 | P.DS ---
Providers Date of admission: 04/12/19 23:12 Expected date of discharge: 04/18/19 Attending physician: Yesenia Avelar Consults: 04/12/19 23:13 Consult Physician Urgent Consulting Provider: [facility] Consult Reason/Comments: new afib Do you want consulting provider notified?: Yes, Notify in am Consult Physician Urgent Consulting Provider: Esther Warner Consult Reason/Comments: established patient Do you want consulting provider notified?: Yes, Notify in am 04/15/19 10:13 Consult Physician Routine Consulting Provider: Carter Devine Consult Reason/Comments: cholecystitis Do you want consulting provider notified?: Yes [facility] Course: This is a 63-year-old male with past medical history significant for end-stage renal disease with dialysis Sunday and Sunday, COPD hypertension, hyperlipidemia, GERD, osteoarthritis, and BPH. Patient presented to the emergency room with complaints of shortness of breath, weakness and generalized feeling unwell. Patient states that he had fever and chills for 2 days. Patient states that he has been feeling unwell throughout the day yesterday. He has had nausea and vomiting with diarrhea that is green in color not bloody. After the vomiting and diarrhea patient developed shortness of breath which prompted him to come to the emergency room. Patient was currently being treated for strep throat with oral antibiotics and had completed a 10 day course of antibiotics with no improvement of his symptoms he was subsequently placed on a second antibiotic. Patient's last dialysis was on Sunday where they removed 2 L. Patient is able to make some urine. Patient is sitting up in bed at this time. He has no complaints of of shortness of breath. Patient does complain of generalized weakness and diarrhea that is green in color. Patient denies bloody diarrhea. Patient's to be received today 9.2 down from 11.5 yesterday, hemoglobin 10.9, potassium is 6.5, BUN 66, creatinine 7.47. Stool was negative for C. diff. Chest x-ray shows small bilateral pleural effusion. Lungs otherwise appear clear. Pulmonary vascularity appears within limits. Cardiac silhouette is enlarged. 04/14: Patient is currently undergoing hemodialysis. Apparently yesterday he was only able to tolerate one and a half hours due to low blood pressure. Nephrology started him on midodrine. Patient complains of feeling weak. He denies any chest pain or palpitations. Repeat lab work reveals Vandana BC 13.8, hemoglobin 10.4, platelet count 131. Sodium 133, potassium 6.1, chloride 94, CO2 19, BUN 65 and creatinine 7.78. Blood sugars been running between 106 and 133. Noted that his AST jumped up to 3520, ALT 415. A kind phosphatase 116. Acute hepatitis panel and ultrasound of the abdomen have been ordered. Repeat CMP ordered for 3 PM and repeat again in the morning. Patient is also followed by cardiology with plan for anticoagulation and repeat echocardiogram has been ordered. Lipitor was discontinued. 04/15: Abdominal ultrasound revealed chronic cholecystitis with gallbladder wall thickening, small amount of surrounding ascites,. Cholecystic fluid, positive Enciso sign. No common bile duct enlargement seen. HIDA scan recommended versus surgical consultation. Medical renal disease in the right kidney with cortical thinning. Partially visualized right pleural effusion. Heterogeneous hepatic echotexture most commonly related to hepatic steatosis however other hepatocellular diseases are possible. Patient denies any abdominal pain. Patient is scheduled for extra HD treatment today for ultrafiltration and a repeat for tomorrow is his usual schedule. Patient has been started on midodrine as needed. Patient did not have IV access last night and one dose of Lovenox was ordered until IV access can be obtained today. Limited echocardiogram revealed moderate generalized pericardial effusion and because of this cardiology is recommending not starting anticoagulation. I'll repeat lab work today reveals white count of 12.7, hemoglobin 9.9, BUN 63 and creatinine 6.65 potassium 5.2, sodium 132 and chloride 95, CO2 24. INR is 1.7. AST 4403, ALT 661, alkaline phosphatase 130 which is improved from yesterday afternoon draw of AST of 6472, ALT 780, alkaline phosphatase 125. Patient's bilirubin has remained normal. Acute hepatitis panel is negative. Consults have been added for GI and general surgery. 04/16: Patient has been seen by Dr. Devine from general surgery. He does not suspect choledocholithiasis or biliary obstruction given the lab values currently. Thickened gallbladder wall, and in dialysis patients. No surgical intervention planned. Patient has been seen by GI and suspect component of hypoperfusion ischemic hepatitis secondary to hypotension and atrial fibrillation with RVR. Patient to avoid hepatotoxic medications. MRCP contingent if lab values do not improve. ERCP not recommended at this time. Viral studies have been ordered by GI. The patient remains on heparin drip. Cardiology is following. Patient is scheduled for hemodialysis again today. His blood pressure is improved this morning and hopefully will tolerate for dialysis treatment. The patient has been afebrile, heart rate 71, blood pressure 101/56, pulse ox 97% on 3 L nasal cannula. WBC 9.6, hemoglobin 10.4, platelet count 117. Sodium 134, potassium 4.7, chloride 98, CO2 20, BUN 70 creatinine 6.97. Blood sugars running between 124 and 177. A repeat liver function tests reveal total bilirubin is normal at 0.9, AST improved at greater than 1500, ALT 574, alkaline phosphatase 122. PT has evaluated recommended home. 04/17: This morning, patient complained to his nurse that he had sore throat that started at midnight and subsequently was noted to have swelling in his face bilaterally and the cheeks. One dose of Benadryl and one dose of Solu-Medrol given which patient had complete resolution. Only new medication at this point is eliquis. Repeat liver function testing feels total bilirubin 0.9, AST 511, ALT 371, alkaline phosphatase 120. We will plan to continue monitoring him overnight and possible discharge tomorrow. 04/18: Patient states that he is feeling very well today and is anxious to go home. Patient denies having any chest pain or shortness of breath. He denies any palpitations. Patient remains in atrial fibrillation with controlled response. Heart rate 79, afebrile, blood pressure 140/85, pulse ox 96% on room air. Repeat lab work reveals white count of 10.4, hemoglobin 10.7, platelet count 155. Sodium 133, potassium 4.2, chloride 92, CO2 22, BUN 79 creatinine 6.99. Blood sugar running between 139 and 188. Total bilirubin is 1.1, AST 248, ALT 317 and alkaline phosphatase 117. Liver function tests are recovering. The patient is undergoing hemodialysis this morning. The patient has no facial swelling. Plan for discharge home once this is completed. Patient is being discharged in stable condition. The patient to have repeat lab work done in one week with Dr. Bains. Lipitor placed on hold until recheck with Dr. Dr. Bains. Discharge diagnoses: 1. New onset atrial fibrillation with RVR, probable paroxysmal atrial fibrillation. 2. Dehydration with diarrhea. 3. End-stage renal failure on dialysis Sunday with graft in left arm. 4. Hyperkalemia. 5. Generalized weakness. 6. Upper respiratory infection possible strep throat. 7. Latent tuberculosis. 8. Hypertension. 9. Hyperlipidemia. 10. Coronary artery disease with multiple vessel stenting. 11. Ischemic cardiomyopathy. 12. Osteoarthritis. 13. BPH. 14. Difficulty sleeping. 15. Hypoperfusion ischemic hepatitis secondary to hypotension and atrial fib rillation RVR 16. Chronic cholecystitis on ultrasound ruled out by Dr. little 19. Facial swelling of unclear etiology, resolved. Discharge plan: home Impression and plan of care have been directed as dictated by the signing physician. Anita Amaya nurse practitioner acting as scribe for signing physician. Patient Condition at Discharge: Good Plan - Discharge Summary Discharge Rx Participant: No New Discharge Prescriptions: New Apixaban [Eliquis] 2.5 mg PO BID #60 tab Calcium Acetate [Phoslo] 667 mg PO TID #90 capsule Continue amLODIPine BESYLATE [Norvasc] 10 mg PO DAILY Metoprolol Tartrate [Lopressor] 12.5 mg PO BID #60 tab Furosemide [Lasix] 80 mg PO BID@0900,1600 Isoniazid 300 mg PO DAILY@0445 Clopidogrel [Plavix] 75 mg PO DAILY Pyridoxine HCl (Vitamin B6) [Vitamin B-6] 100 mg PO DAILY Tamsulosin [Flomax] 0.4 mg PO DAILY Nitroglycerin Sl Tabs [Nitrostat] 0.4 mg SUBLINGUAL Q5M PRN PRN Reason: Chest Pain Brimonidine/Dorzolamide/Pf [Brimonidine 0.15%-Dorzolam 2%] 1 drop LEFT EYE DAILY Baclofen [Lioresal] 5 mg PO BID Penicillin V Potassium [Pen Vee K] 500 mg PO BID Discontinued Atorvastatin [Lipitor] 40 mg PO DAILY #30 tab Aspirin [Children's Aspirin] 81 mg PO DAILY Calcium Acetate [PhosLo] 1,334 mg PO AC-TID Calcium Acetate [PhosLo] 667 mg PO BID Discharge Medication List amLODIPine BESYLATE [Norvasc] 10 mg PO DAILY 01/02/18 [History] Metoprolol Tartrate [Lopressor] 12.5 mg PO BID #60 tab 01/21/18 [Rx] Furosemide [Lasix] 80 mg PO BID@0900,1600 04/26/18 [History] Clopidogrel [Plavix] 75 mg PO DAILY 12/06/18 [History] Isoniazid 300 mg PO DAILY@0445 12/06/18 [History] Pyridoxine HCl (Vitamin B6) [Vitamin B-6] 100 mg PO DAILY 12/06/18 [History] Tamsulosin [Flomax] 0.4 mg PO DAILY 04/01/19 [History] Baclofen [Lioresal] 5 mg PO BID 04/12/19 [History] Brimonidine/Dorzolamide/Pf [Brimonidine 0.15%-Dorzolam 2%] 1 drop LEFT EYE DAILY 04/12/19 [History] Nitroglycerin Sl Tabs [Nitrostat] 0.4 mg SUBLINGUAL Q5M PRN 04/12/19 [History] Penicillin V Potassium [Pen Vee K] 500 mg PO BID 04/12/19 [History] Apixaban [Eliquis] 2.5 mg PO BID #60 tab 04/18/19 [Rx] Calcium Acetate [Phoslo] 667 mg PO TID #90 capsule 04/18/19 [Rx] Follow up Appointment(s)/Referral(s): Jorge Dunn MD [STAFF PHYSICIAN] - 04/29/19 10:15 am (Sunday with Kirsty KIRK) Estrellita Bains MD [Primary Care Provider] - 04/24/19 2:30 pm () Ambulatory/Diagnostic Orders: Complete Blood Count w/diff [LAB.AMB] Location: None Selected Comprehensive Metabolic Panel [LAB.AMB] Location: None Selected Patient Instructions/Handouts: A-fib (Atrial Fibrillation) (DC), Safe Use of Anticoagulants (DC) Activity/Diet/Wound Care/Special Instructions: pts copay for Eliquis is currently $407 until his deductible is met, pt will need free 30 day coupon for his 1st mo. Discharge Disposition: HOME SELF-CARE
--- NOTE | 2019-04-18 18:41 | PN ---
PROGRESS NOTE Patient is seen for followup for end-stage renal disease. He is currently doing much better. He was dialyzed this morning and he will be going home today. He is much more awake and has been walking. Family's concerns regarding diet have been answered. On examination this morning, blood pressure was 140/85, heart rate 79 per minute. He is afebrile. EXAMINATION OF THE HEART: S1 and S2. EXAMINATION OF LUNGS: Bilateral breath sounds are heard. ABDOMEN: Soft, non-tender. Examination of lower extremities shows no significant edema. Labs show hemoglobin of 10.7, sodium 133, potassium of 4.2. ASSESSMENT: 1. End-stage renal disease, on hemodialysis on a Sunday, Sunday, Sunday schedule. 2. Encephalopathy, currently resolved. 3. Hypertension, controlled. 4. Chronic kidney disease mineral bone disorder. 5. 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 PLAN: Patient is stable for discharge. Follow up as outpatient for hemodialysis on Sunday. MMODL / IJN: [id number] /
== END 2019-04-18 14:07 | disposition home or self-care (01) | DRG 308 ==
LOC: EC 21:03 → 3SCARD 23:12
PROVIDERS: ADMIT Family Medicine; ATTEND Family Medicine
PROC: 5A1D70Z Performance of Urinary Filtration, Intermittent, Less than 6 Hours Per Day (ICD-10-PCS; principal; 2019-04-13)
DX: I48.0 Paroxysmal atrial fibrillation (principal); N18.6 End stage renal disease; E87.1 Hypo-osmolality and hyponatremia; E87.2 Acidosis; G93.40 Encephalopathy, unspecified; I12.0 Hypertensive chronic kidney disease with stage 5 chronic kidney disease or end stage renal disease; I31.3 Pericardial effusion (noninflammatory); J90 Pleural effusion, not elsewhere classified; R18.8 Other ascites; I27.20 Pulmonary hypertension, unspecified; E87.5 Hyperkalemia; E87.70 Fluid overload, unspecified; K81.1 Chronic cholecystitis; K75.89 Other specified inflammatory liver diseases; I95.9 Hypotension, unspecified; E78.5 Hyperlipidemia, unspecified; E86.0 Dehydration; F17.200 Nicotine dependence, unspecified, uncomplicated; R60.9 Edema, unspecified; I25.10 Atherosclerotic heart disease of native coronary artery without angina pectoris; I25.5 Ischemic cardiomyopathy; I34.0 Nonrheumatic mitral (valve) insufficiency; J02.0 Streptococcal pharyngitis; J44.9 Chronic obstructive pulmonary disease, unspecified; K21.9 Gastro-esophageal reflux disease without esophagitis; M19.90 Unspecified osteoarthritis, unspecified site; E83.89 Other disorders of mineral metabolism; N40.0 Benign prostatic hyperplasia without lower urinary tract symptoms; R76.11 Nonspecific reaction to tuberculin skin test without active tuberculosis; R19.7 Diarrhea, unspecified; Z79.02 Long term (current) use of antithrombotics/antiplatelets; Z79.82 Long term (current) use of aspirin; Z79.899 Other long term (current) drug therapy; Z99.2 Dependence on renal dialysis; Z87.11 Personal history of peptic ulcer disease; Z95.5 Presence of coronary angioplasty implant and graft; Z82.49 Family history of ischemic heart disease and other diseases of the circulatory system; Z82.5 Family history of asthma and other chronic lower respiratory diseases
CPT/HCPCS: 36410; 36415; 71046; 76705; 76937; 80048; 80053; 80074; 83605; 84132; 84443; 84484; 85025; 85610; 85730; 86644; 86645; 86663; 86664; 86665; 87040; 87077; 87086; 87186; 87324; 90935; 93005; 93308; 94760; 96374; 99285

== ENCOUNTER 2019-04-28 11:17 | Inpatient (IN) | payer MEDICARE, BC ==
[2019-04-28] MEDS ORDERED: ACETAMINOPHEN TAB 500 MG TAB PO STA (11:52)
--- NOTE | 2019-04-28 11:56 | ED ---
General Adult HPI - General Chief complaint: Shortness of Breath Stated complaint: shortness of breath-sent by [facility] Time Seen by Provider: 04/28/19 11:43 Source: patient, family, RN notes reviewed Mode of arrival: ambulatory Limitations: no limitations - History of Present Illness Initial comments: Patient is a pleasant 63-year-old male presenting to the emergency department with difficulty in breathing. Onset of symptoms was a few days ago. Patient does have occasional nonproductive cough. No chest pain. No palpitations. Patient was recently diagnosed with A. fib approximately 10 days ago. Patient was started on Eliquis and continues to be on Eliquis. No leg pain or leg swelling. No fevers. Patient is on dialysis and did go to dialysis today without improvement of symptoms. - Related Data Home Medications Medication Instructions Recorded Confirmed Apixaban [Eliquis] 2.5 mg PO BID 04/28/19 04/28/19 Baclofen 2.5 mg PO BID PRN 04/28/19 04/28/19 Brimonidine/Dorzolamide/Pf 1 drop LEFT EYE DAILY 04/28/19 04/28/19 [Brimonidine 0.15%-Dorzolam 2%] Calcium Acetate [Phoslo] 1,334 mg PO TID 04/28/19 04/28/19 Clopidogrel [Plavix] 75 mg PO DAILY 04/28/19 04/28/19 Furosemide [Lasix] 80 mg PO BID@0900,1600 04/28/19 04/28/19 Isoniazid 300 mg PO DAILY 04/28/19 04/28/19 Metoprolol Tartrate [Lopressor] 12.5 mg PO BID 04/28/19 04/28/19 Nitroglycerin Sl Tabs [Nitrostat] 0.4 mg SUBLINGUAL Q5M PRN 04/28/19 04/28/19 Pyridoxine HCl (Vitamin B6) 100 mg PO DAILY 04/28/19 04/28/19 [Vitamin B-6] Tamsulosin HCl [Flomax] 0.4 mg PO DAILY 04/28/19 04/28/19 amLODIPine [Norvasc] 10 mg PO DAILY 04/28/19 04/28/19 Allergies Allergy/AdvReac Type Severity Reaction Status Date / Time No Known Allergies Allergy Verified 04/28/19 11:30 Review of Systems ROS Statement: Those systems with pertinent positive or pertinent negative responses have been documented in the HPI. ROS Other: All systems not noted in ROS Statement are negative. 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 History of Any Multi-Drug Resistant Organisms: None Reported Past Surgical History: Heart Catheterization With Stent Past Psychological History: No Psychological Hx Reported Smoking Status: Former smoker Past Alcohol Use History: None Reported Past Drug Use History: None Reported General Exam Limitations: no limitations General appearance: alert, in no apparent distress Head exam: Present: atraumatic Eye exam: Present: normal appearance Neck exam: Present: normal inspection Respiratory exam: Present: normal lung sounds bilaterally Cardiovascular Exam: Present: tachycardia, irregular rhythm GI/Abdominal exam: Present: soft. Absent: tenderness Extremities exam: Present: normal inspection. Absent: pedal edema, calf tenderness Neurological exam: Present: alert. Absent: motor sensory deficit Psychiatric exam: Present: normal affect, normal mood Skin exam: Present: normal color Course Vital Signs 04/28/19 04/28/19 04/28/19 11:34 12:43 14:07 Temperature 99.2 F 98.8 F Pulse Rate 116 H 126 H Respiratory 18 18 23 Rate Blood Pressure 144/91 126/82 O2 Sat by Pulse 95 93 L Oximetry - Reevaluation(s) Reevaluation #1: 04/28/19 15:03 There is concern for sepsis diagnosed at 1500. Blood culture and lactic acid have been ordered. IV antibiotics will be ordered. EKG Findings - EKG Comments: EKG Findings:: A. fib with RVR, rate 112. QRS 72. QT 288. QTC 393. Normal axis. Normal QRS. Nonspecific T waves. Medical Decision Making - Medical Decision Making Patient reevaluated. Patient and family updated. Case was discussed with Dr. Avelar who did come see the patient. She does request Zosyn and vancomycin and c onsult with nephrology and Dr. white. Also requests computed tomography scan. - Lab Data Result diagrams: 04/28/19 12:17 04/28/19 12:17 Lab Results 04/28/19 04/28/19 04/28/19 Range/Units 12:17 12:17 12:17 WBC 9.4 (3.8-10.6) k/uL RBC 4.27 L (4.30-5.90) m/uL Hgb 11.8 L (13.0-17.5) gm/dL Hct 37.8 L (39.0-53.0) % MCV 88.4 (80.0-100.0) fL MCH 27.6 (25.0-35.0) pg MCHC 31.2 (31.0-37.0) g/dL RDW 18.7 H (11.5-15.5) % Plt Count 176 (150-450) k/uL Neutrophils % 86 % Lymphocytes % 6 % Monocytes % 6 % Eosinophils % 1 % Basophils % 0 % Neutrophils # 8.1 H (1.3-7.7) k/uL Lymphocytes # 0.5 L (1.0-4.8) k/uL Monocytes # 0.5 (0-1.0) k/uL Eosinophils # 0.1 (0-0.7) k/uL Basophils # 0.0 (0-0.2) k/uL Hypochromasia Slight Anisocytosis Slight PT (9.0-12.0) sec INR (<1.2) APTT (22.0-30.0) sec Sodium 135 L (137-145) mmol/L Potassium 3.9 (3.5-5.1) mmol/L Chloride 92 L (98-107) mmol/L Carbon Dioxide 33 H (22-30) mmol/L Anion Gap 10 mmol/L BUN 29 H (9-20) mg/dL Creatinine 3.91 H (0.66-1.25) mg/dL Est GFR (CKD-EPI)AfAm 18 (>60 ml/min/1.73 sqM) Est GFR (CKD-EPI)NonAf 15 (>60 ml/min/1.73 sqM) Glucose 170 H (74-99) mg/dL Plasma Lactic Acid Zac 1.1 (0.7-2.0) mmol/L Calcium 8.6 (8.4-10.2) mg/dL Total Bilirubin 0.8 (0.2-1.3) mg/dL AST 32 (17-59) U/L ALT 64 (21-72) U/L Alkaline Phosphatase 106 (38-126) U/L Creatine Kinase 47 L (55-170) U/L Troponin I (0.000-0.034) ng/mL NT-Pro-B Natriuret Pep pg/mL Total Protein 5.7 L (6.3-8.2) g/dL Albumin 3.2 L (3.5-5.0) g/dL 04/28/19 04/28/19 04/28/19 Range/Units 12:17 12:17 12:17 WBC (3.8-10.6) k/uL RBC (4.30-5.90) m/uL Hgb (13.0-17.5) gm/dL Hct (39.0-53.0) % MCV (80.0-100.0) fL MCH (25.0-35.0) pg MCHC (31.0-37.0) g/dL RDW (11.5-15.5) % Plt Count (150-450) k/uL Neutrophils % % Lymphocytes % % Monocytes % % Eosinophils % % Basophils % % Neutrophils # (1.3-7.7) k/uL Lymphocytes # (1.0-4.8) k/uL Monocytes # (0-1.0) k/uL Eosinophils # (0-0.7) k/uL Basophils # (0-0.2) k/uL Hypochromasia Anisocytosis PT 12.8 H (9.0-12.0) sec INR 1.2 H (<1.2) APTT 33.3 H (22.0-30.0) sec Sodium (137-145) mmol/L Potassium (3.5-5.1) mmol/L Chloride (98-107) mmol/L Carbon Dioxide (22-30) mmol/L Anion Gap mmol/L BUN (9-20) mg/dL Creatinine (0.66-1.25) mg/dL Est GFR (CKD-EPI)AfAm (>60 ml/min/1.73 sqM) Est GFR (CKD-EPI)NonAf (>60 ml/min/1.73 sqM) Glucose (74-99) mg/dL Plasma Lactic Acid Zac (0.7-2.0) mmol/L Calcium (8.4-10.2) mg/dL Total Bilirubin (0.2-1.3) mg/dL AST (17-59) U/L ALT (21-72) U/L Alkaline Phosphatase (38-126) U/L Creatine Kinase (55-170) U/L Troponin I <0.012 (0.000-0.034) ng/mL NT-Pro-B Natriuret Pep 66667 pg/mL Total Protein (6.3-8.2) g/dL Albumin (3.5-5.0) g/dL - Radiology Data Radiology results: image reviewed (Chest x-ray shows cardiomegaly. Likely the left costophrenic angle effusion) Critical Care Time Critical Care Time: Yes Total Critical Care Time: 31 Disposition Clinical Impression: Dyspnea, Sepsis Disposition: ADMITTED IP TO THIS [facility] Condition: Serious Is patient prescribed a controlled substance at d/c from ED?: No Referrals: Estrellita Bains MD [Primary Care Provider] - 1-2 days Decision Time: 15:03
[2019-04-28 12:40] LABS: Anisocytosis Slight; Basophils % (A) 0 %; Eosinophils # (A) 0.1 k/uL (0-0.7); Eosinophils % (A) 1 %; HCT 37.8 % (39.0-53.0); HGB 11.8 gm/dL (13.0-17.5); Hypochromasia Slight; Lymphocytes # (A) 0.5 k/uL (1.0-4.8); Lymphocytes % (A) 6 %; MCH 27.6 pg (25.0-35.0); MCHC 31.2 g/dL (31.0-37.0); MCV 88.4 fL (80.0-100.0); Mean Platelet Volume 8.1; Monocytes # (A) 0.5 k/uL (0-1.0); Monocytes % (A) 6 %; Neutrophils # (A) 8.1 k/uL (1.3-7.7); Neutrophils % (A) 86 %; Platelet Count 176 k/uL (150-450); RBC 4.27 m/uL (4.30-5.90); RDW 18.7 % (11.5-15.5); WBC 9.4 k/uL (3.8-10.6)
[2019-04-28 12:41] LABS: Albumin 3.2 g/dL (3.5-5.0); Calcium 8.6 mg/dL (8.4-10.2); Potassium 3.9 mmol/L (3.5-5.1); Total Bilirubin 0.8 mg/dL (0.2-1.3); Total Protein 5.7 g/dL (6.3-8.2)
[2019-04-28 12:46] LABS: INR 1.2 (<1.2); Partial Thromboplastin Time 33.3 sec (22.0-30.0); Prothrombin Time 12.8 sec (9.0-12.0)
--- NOTE | 2019-04-28 13:08 | XR ---
EXAMINATION TYPE: XR chest 2V DATE OF EXAM: 04/28/2019 COMPARISON: 04/12/2019 INDICATION: Fever COPD A. fib TECHNIQUE: Frontal and lateral views of the chest are obtained. FINDINGS: The heart size is currently prominent. The pulmonary vasculature is normal. There is a loculated left pleural effusion. Lungs are otherwise clear.. IMPRESSION: 1. Moderate cardiomegaly. 2. Loculated left costophrenic angle pleural effusion
--- NOTE | 2019-04-28 14:55 | P.HPIM ---
History of Present Illness H&P Date: 04/28/19 Chief Complaint: Shortness of breath fever This is a 63-year-old gentleman patient of Dr. Bains. 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 Patient had been ill for the past 3 days, seen in the clinic by [facility], and was given a mucolytic. Subsequent to that patient has increasing shortness of breath, fever yesterday, productive cough mainly white sputum, he has temperature at home, approximately 100, he had been admitted off and on for the same problem since 04/01/2019, when he presented initially with chest pain. He was seen by Dr. Nuñez during these episodes, and no blood cultures were isolated from the initial admission April 02, except during the second admission with staph epidermidis in the urine culture, he also had an abdominal ultrasound 03/15/2019 for his chronic cholecystitis was noted, was seen by Dr. Fisher, has elevated liver function tests at that time with no symptoms of the gallbladder, has no acute surgical intervention for the gallbladder that time, patient was seen by GI Dr. Fan for possible MRCP,, none was planned at that time as they taught the elevated liver function tests could be biochemically related to transaminitis from CHF A. fib with RVR. Per patient's recollection, patient gets better after not antibiotic is completed, 2 days thereafter, patient doesn't feel well, has fever, cough shortness of breath, no abdominal pain, no diarrhea, he has soft stools his main complaint is cough and shortness of breath. No dysuria and hematuria In the emergency room, he was evaluated for shortness of breath and cough and fever, chest x-ray shows loculated little effusion, left costophrenic angle, T- max ER 1991, blood pressure 144/91 95% on room air, previous CAT scans were reviewed from 04/03/2019 shows atelectasis bilateral, without any pleural effusion, indeterminate hepatic and renal lesions as discussed performed without contrast studies. CT high resolution to be done, consult with Dr. Nueñz infectious disease, consult with nephrology for maintenance hemodialysis, but cultures obtained, IV Zosyn IV vancomycin patient is high risk for sepsis secondary to his HD program 04/28, 3:55 PM, i was notified regarding of red critical level for CAT scan, showing a large pericardial effusion, 2.1 cm in depth, consult urgent to cardiology Dr. Dunn, consultation stat to thoracic surgeon Dr. Mackay, hold eliquis Plavix, until recommendations from both services cardiology and cardiothoracic surgeon. IV Lasix, ICU admission, high risk for tamponade discussed with ER physician Dr. Oh, consult with copy holder Dr. Bejarano Review of Systems Constitutional: Reports as per HPI, Reports anorexia, Reports chills, Reports fever, Reports lethargy, Reports malaise, Denies chronic headaches, Denies chronic pain, Denies daytime sleepiness, Denies fatigue, Denies night sweats, Denies poor appetite, Denies sweats, Denies weakness, Denies weight gain, Denies weight loss Ears, nose, mouth and throat: Reports as per HPI, Denies ant. neck pain, Denies bleeding gums, Denies dental pain, Denies dysphagia, Denies epistaxis, Denies headache, Denies hoarseness, Denies mouth pain, Denies nasal congestion, Denies nasal discharge, Denies neck fullness/pressure, Denies neck lump, Denies nose pain, Denies odynophagia, Denies post-nasal drip, Denies sinus pain, Denies sinus pressure, Denies swelling in mouth, Denies swelling in throat, Denies sore throat, Denies vertigo, Denies voice changes Cardiovascular: Reports as per HPI Respiratory: Reports as per HPI Gastrointestinal: Reports as per HPI Genitourinary: Reports as per HPI Musculoskeletal: Reports as per HPI Integumentary: Reports as per HPI Neurological: Reports as per HPI, Denies aphasia, Denies ataxia, Denies balance difficulties, Denies burning pain, Denies change in mentation, Denies change in smell/taste, Denies change in speech, Denies confusion, Denies convulsions, Denies double vision, Denies gait dysfunction, Denies head injury, Denies headaches, Denies hearing difficulties, Denies lack of coordination, Denies loss of vision, Denies memory loss, Denies migraines, Denies motor disturbance, Denies numbness, Denies paralysis, Denies paresthesias, Denies seizures, Denies sensory deficit, Denies spasticity, Denies syncope, Denies tic, Denies tingling, Denies transient paralysis, Denies tremors, Denies vertigo, Denies weakness, Denies visual changes Psychiatric: Reports as per HPI Endocrine: Reports as per HPI Hematologic/Lymphatic: Reports as per HPI, Reports easy bleeding Allergic/Immunologic: Reports as per HPI, Denies allergic rhinitis, Denies anaphylaxis, Denies angioedema, Denies gluten intolerance, Denies persistent infections, Denies seasonal allergies, Denies urticaria, Denies wheezing Past Medical History Past Medical History: Atrial Fibrillation, COPD, Dialysis Additional Past Medical History / Comment(s): 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 History of Any Multi-Drug Resistant Organisms: None Reported Past Surgical History: Heart Catheterization With Stent Past Psychological History: No Psychological Hx Reported Smoking Status: Former smoker Past Alcohol Use History: None Reported Past Drug Use History: None Reported Medications and Allergies Home Medications Medication Instructions Recorded Confirmed Type Apixaban [Eliquis] 2.5 mg PO BID 04/28/19 04/28/19 History Baclofen 2.5 mg PO BID PRN 04/28/19 04/28/19 History Brimonidine/Dorzolamide/Pf 1 drop LEFT EYE DAILY 04/28/19 04/28/19 History [Brimonidine 0.15%-Dorzolam 2%] Calcium Acetate [Phoslo] 1,334 mg PO TID 04/28/19 04/28/19 History Clopidogrel [Plavix] 75 mg PO DAILY 04/28/19 04/28/19 History Furosemide [Lasix] 80 mg PO BID@0900,1600 04/28/19 04/28/19 History Isoniazid 300 mg PO DAILY 04/28/19 04/28/19 History Metoprolol Tartrate [Lopressor] 12.5 mg PO BID 04/28/19 04/28/19 History Nitroglycerin Sl Tabs [Nitrostat] 0.4 mg SUBLINGUAL Q5M PRN 04/28/19 04/28/19 History Pyridoxine HCl (Vitamin B6) 100 mg PO DAILY 04/28/19 04/28/19 History [Vitamin B-6] Tamsulosin HCl [Flomax] 0.4 mg PO DAILY 04/28/19 04/28/19 History amLODIPine [Norvasc] 10 mg PO DAILY 04/28/19 04/28/19 History Allergies Allergy/AdvReac Type Severity Reaction Status Date / Time No Known Allergies Allergy Verified 04/28/19 11:30 Physical Exam Vitals: Vital Signs Temp Pulse Resp BP Pulse Ox 04/28/19 14:07 23 04/28/19 12:43 98.8 F 126 H 18 126/82 93 L 04/28/19 11:34 99.2 F 116 H 18 144/91 95 Intake and Output 04/27/19 04/28/19 04/28/19 22:59 06:59 14:59 Other: Weight 83 kg - Constitutional General appearance: cooperative, no acute distress - EENT Eyes: anicteric sclerae, EOMI, PERRLA, dentition normal, normal appearance ENT: hearing grossly normal, NA/AT, normal oropharynx - Neck Neck: normal ROM - Respiratory Respiratory: bilateral: CTA, negative: diminished, dullness, rales - Cardiovascular Rhythm: regular Heart sounds: normal: S1, S2 Abnormal Heart Sounds: no systolic murmur, no diastolic murmur, no rub, no S3 Gallop, no S4 Gallop, no click, no other - Gastrointestinal General gastrointestinal: normal bowel sounds, soft - Integumentary Integumentary: decreased turgor, normal - Neurologic Neurologic: CNII-XII intact - Musculoskeletal Musculoskeletal: strength equal bilaterally - Psychiatric Psychiatric: A&O x's 3, appropriate affect, intact judgment & insight Results CBC & Chem 7: 04/28/19 12:17 04/28/19 12:17 Labs: Abnormal Lab Results - Last 24 Hours (Table) 04/28/19 04/28/19 04/28/19 Range/Units 12:17 12:17 12:17 RBC 4.27 L (4.30-5.90) m/uL Hgb 11.8 L (13.0-17.5) gm/dL Hct 37.8 L (39.0-53.0) % RDW 18.7 H (11.5-15.5) % Neutrophils # 8.1 H (1.3-7.7) k/uL Lymphocytes # 0.5 L (1.0-4.8) k/uL PT 12.8 H (9.0-12.0) sec INR 1.2 H (<1.2) APTT 33.3 H (22.0-30.0) sec Sodium 135 L (137-145) mmol/L Chloride 92 L (98-107) mmol/L Carbon Dioxide 33 H (22-30) mmol/L BUN 29 H (9-20) mg/dL Creatinine 3.91 H (0.66-1.25) mg/dL Glucose 170 H (74-99) mg/dL Creatine Kinase 47 L (55-170) U/L Total Protein 5.7 L (6.3-8.2) g/dL Albumin 3.2 L (3.5-5.0) g/dL Laboratory Results WBC 9.4 k/uL (3.8-10.6) 04/28/19 12:17 RBC 4.27 m/uL (4.30-5.90) L 04/28/19 12:17 Hgb 11.8 gm/dL (13.0-17.5) L 04/28/19 12:17 Hct 37.8 % (39.0-53.0) L 04/28/19 12:17 MCV 88.4 fL (80.0-100.0) 04/28/19 12:17 MCH 27.6 pg (25.0-35.0) 04/28/19 12:17 MCHC 31.2 g/dL (31.0-37.0) 04/28/19 12:17 RDW 18.7 % (11.5-15.5) H 04/28/19 12:17 Plt Count 176 k/uL (150-450) 04/28/19 12:17 Neutrophils % 86 % 04/28/19 12:17 Lymphocytes % 6 % 04/28/19 12:17 Monocytes % 6 % 04/28/19 12:17 Eosinophils % 1 % 04/28/19 12:17 Basophils % 0 % 04/28/19 12:17 Neutrophils # 8.1 k/uL (1.3-7.7) H 04/28/19 12:17 Lymphocytes # 0.5 k/uL (1.0-4.8) L 04/28/19 12:17 Monocytes # 0.5 k/uL (0-1.0) 04/28/19 12:17 Eosinophils # 0.1 k/uL (0-0.7) 04/28/19 12:17 Basophils # 0.0 k/uL (0-0.2) 04/28/19 12:17 Hypochromasia Slight 04/28/19 12:17 Anisocytosis Slight 04/28/19 12:17 PT 12.8 sec (9.0-12.0) H 04/28/19 12:17 INR 1.2 (<1.2) H 04/28/19 12:17 APTT 33.3 sec (22.0-30.0) H 04/28/19 12:17 Sodium 135 mmol/L (137-145) L 04/28/19 12:17 Potassium 3.9 mmol/L (3.5-5.1) 04/28/19 12:17 Chloride 92 mmol/L (98-107) L 04/28/19 12:17 Carbon Dioxide 33 mmol/L (22-30) H 04/28/19 12:17 Anion Gap 10 mmol/L 04/28/19 12:17 BUN 29 mg/dL (9-20) H 04/28/19 12:17 Creatinine 3.91 mg/dL (0.66-1.25) H 04/28/19 12:17 Est GFR (CKD-EPI)AfAm 18 (>60 ml/min/1.73 sqM) 04/28/19 12:17 Est GFR (CKD-EPI)NonAf 15 (>60 ml/min/1.73 sqM) 04/28/19 12:17 Glucose 170 mg/dL (74-99) H 04/28/19 12:17 Plasma Lactic Acid Zac 1.1 mmol/L (0.7-2.0) 04/28/19 12:17 Calcium 8.6 mg/dL (8.4-10.2) 04/28/19 12:17 Total Bilirubin 0.8 mg/dL (0.2-1.3) 04/28/19 12:17 AST 32 U/L (17-59) 04/28/19 12:17 ALT 64 U/L (21-72) 04/28/19 12:17 Alkaline Phosphatase 106 U/L (38-126) 04/28/19 12:17 Creatine Kinase 47 U/L (55-170) L 04/28/19 12:17 Troponin I <0.012 ng/mL (0.000-0.034) 04/28/19 12:17 NT-Pro-B Natriuret Pep 00590 pg/mL 04/28/19 12:17 Total Protein 5.7 g/dL (6.3-8.2) L 04/28/19 12:17 Albumin 3.2 g/dL (3.5-5.0) L 04/28/19 12:17 Thrombosis Risk Factor Assmnt - DVT/VTE Prophylaxis DVT/VTE Prophylaxis: Pharmacologic Prophylaxis ordered Assessment and Plan Plan: 1. Recurrent fever with pneumonitis, atypical pneumonia with loculated fluid on chest x-ray findings possible lung abscess left lower, patient will be admitted with consultation to infectious disease Dr. Nuñez., IV Zosyn and IV vancomycin, cannot rule out facility acquired pneumonia, showing a loculated left costal phrenic angle pleural effusion, blood cultures have been sent, will try to obtain sputum cultures, and CT of the chest high resolution. Lactic acid is normal, obtain pro-calcitonin levels, sputum cultures if able. Patient might need I&D of the loculated lesion, serial x-rays will be done, 2. Large pericardial effusion, patient will be admitted to ICU from the ER, colchicine 1.2 mg 1 dose now thereafter 0.6 mg, aspirin, consult urgent to cardiology, consult urgent to thoracic surgeon Dr. Mackay, and copy holder Dr. Howe. Monitor for pericardiac tamponade 2 atrial fibrillation with RVR, current with uncontrolled heart rate Cardiology consult appreciated. Continue metoprolol 12.5 by mouth twice a day. " 2.5 mg twice a day 3 Chronic cholecystitis. Was seen by Dr. denia Devine in the past, no surgical plans, transaminitis has resolved no current symptoms. 4 End-stage renal failure on dialysis Sunday with graft in left arm. Nephrology consult Continue with dialysis as ordered by nephrology. 5. Generalized weakness. Continue hydration. 7. Latent tuberculosis. Continue isoniazid. To complete program as designated for six-month treatment, patient most likely has 2 months to go 40s 8. Hypertension. Continue metoprolol 12.5 mg twice daily. Norvasc 10 mg daily Lasix 80 mg twice a day 9. Hyperlipidemia. hold Lipitor 40 mg by mouth daily 10. Coronary artery disease with multiple vessel stenting. Continue Lipitor 11. Ischemic cardiomyopathy. Continue metoprolol 12. Osteoarthritis. Continue baclofen 5 mg by mouth twice a day, continue [place] 5/325 one tablet every 6 hours as needed for pain 13. BPH. Continue Flomax 0.4 mg daily 14. Difficulty sleeping. Melatonin 6 mg by mouth at bedtime 15. GI prophylaxis. Protonix 40 mg IV daily 16. DVT prophylaxis. Currently on heparin 17. Elevated liver function tests. Statin discontinued. Acute hepatitis panel negative. Ultrasound of the liver as above.
[2019-04-28] MEDS ORDERED: NITROGLYCERIN SL TABS 0.4 MG TAB SUBLINGUAL PRN (15:00)
[2019-04-28] MEDS ORDERED: BACLOFEN 10 MG TAB PO PRN (15:00)
[2019-04-28] MEDS ORDERED: PIPERACILLIN-TAZOBACTAM 3.375 GM in SODIUM CHLORIDE 0.9% 100 ML IVPB STA (15:04)
[2019-04-28] MEDS ORDERED: PNEUMONIA PROTOCOL UTILIZED 1 EACH MISC PO PRN (15:04)
[2019-04-28] MEDS ORDERED: RX INFO: IV CONTRAST WAS GIVEN 1 EACH MISC MISCELLANE PRN (15:06)
[2019-04-28] MEDS ORDERED: VANCOMYCIN IV PER PHARMACY 1 EACH MISC MISCELLANE PRN (15:06)
[2019-04-28] MEDS ORDERED: VANCOMYCIN 1,500 MG in SODIUM CHLORIDE 0.9% 250 ML IVPB ONE (15:30)
[2019-04-28] MEDS: SODIUM CHLORIDE 0.9% 1,000 ML IV SCH (15:34)
--- NOTE | 2019-04-28 15:50 | CT ---
EXAMINATION TYPE: CT chest wo con DATE OF EXAM: 04/28/2019 COMPARISON: 04/03/2019 HISTORY: Shortness of breath CT DLP: 427 mGycm, Automated exposure control for dose reduction was used. CONTRAST: Performed injected with 0 mL of Isovue 300. TECHNIQUE: Axial images were obtained at 5 mm thick sections. Reconstructed images are reviewed on [employer] computer in the coronal plane. FINDINGS: Portion of the thyroid visualized is normal. Small bilateral pleural effusions are present. There is a large pericardial effusion present with a d epth of 2.1 cm. No enlarged mediastinal or hilar adenopathy is evident. [place] lymphadenopathy is noted. The ascend ing aorta diameter at the level of the main pulmonary artery is 4.0 cm. The main pulmonary artery di ameter at the bifurcation is 3.0 cm. Note is made of some coronary artery calcification. Limited CT sections are obtained through the upper abdomen. Abdomen is essentially unremarkable. IMPRESSIONS: 1. Interval development of a large pericardial effusion with a depth of 2.1 cm. 2. Small bilateral pleural effusions. A [place] critical message alert has been initiated for Yesenia Avelar MD via the [employer] Critical Results System on 04/28/2019 3:47 PM. This message alert has been sent to Yesenia Avelar MD v regina the preferences provided by the clinician for the receipt of Radiology Critical Findings. Message ID [id number].
[2019-04-28] MEDS ORDERED: FUROSEMIDE 80 MG TAB PO SCH (16:00)
[2019-04-28] MEDS ORDERED: COLCHICINE 0.6 MG EACH PO SCH ×2 (16:30)
[2019-04-28 17:17] LABS: ABG Base Excess 10.4 mmol/L; ABG HCO3 34 mmol/L (21-25); ABG Oxygen Saturation 90.4 % (94-97); ABG PCO2 43 mmHg (35-45); ABG TCO2 35 mmol/L (19-24); Allen Test Performed? Yes
[2019-04-28 17:20] LABS: ABG PO2 55 mmHg (83-108)
[2019-04-28] MEDS: CALCIUM ACETATE 667 MG CAP PO SCH (17:44)
[2019-04-28] MEDS: COLCHICINE 0.6 MG EACH PO SCH (17:44)
[2019-04-28 19:38] LABS: Glucose,Whole Blood 170 mg/dL (75-99)
[2019-04-28] MEDS: FUROSEMIDE 10 MG/ML 10 ML VIAL IV SCH (20:40)
[2019-04-28] MEDS ORDERED: APIXABAN 2.5 MG TABLET PO SCH (21:00)
[2019-04-28] MEDS ORDERED: METOPROLOL TARTRATE 12.5 MG TAB PO SCH (21:00)
[2019-04-29] MEDS: PIPERACILLIN-TAZOBACTAM 3.375 GM in SODIUM CHLORIDE 0.9% 100 ML IVPB SCH ×2 (03:54→16:10)
[2019-04-29] MEDS: ISONIAZID 100 MG TABLET PO SCH (05:16)
[2019-04-29] MEDS: PYRIDOXINE 50 MG TAB PO SCH (05:17)
[2019-04-29 06:23] LABS: Calcium 7.8 mg/dL (8.4-10.2); Total Bilirubin 1.7 mg/dL (0.2-1.3); Total Protein 5.8 g/dL (6.3-8.2)
[2019-04-29 06:34] LABS: Anisocytosis Slight; HCT 33.9 % (39.0-53.0); HGB 10.9 gm/dL (13.0-17.5); Hypochromasia Slight; MCH 27.9 pg (25.0-35.0); MCHC 32.2 g/dL (31.0-37.0); MCV 86.6 fL (80.0-100.0); Mean Platelet Volume 9.8; Platelet Count 165 k/uL (150-450); Poikilocytosis Slight; RBC 3.92 m/uL (4.30-5.90); RDW 18.4 % (11.5-15.5); WBC 9.8 k/uL (3.8-10.6)
[2019-04-29] MEDS: CALCIUM ACETATE 667 MG CAP PO SCH ×3 (06:59→17:35)
--- NOTE | 2019-04-29 06:59 | XR ---
EXAMINATION TYPE: XR chest 1V portable DATE OF EXAM: 04/29/2019 COMPARISON: 04/28/2019 HISTORY: Cough possible TECHNIQUE: Single frontal view of the chest is obtained. FINDINGS: Marked cardiomegaly with bilateral infiltrate and pleural effusion. Pneumothorax. Arthropa thy shoulders. IMPRESSION: 1. Increasing bilateral consolidation pleural effusion correlate for pneumonia. Otherwise consider CH F. 2. Marked cardiomegaly correlate for cardiomyopathy or pericardial effusion.
[2019-04-29 07:09] LABS: Band Neutrophils % 1 %; Lymphocytes # (M) 1.47 k/uL (1.0-4.8); Monocytes # (M) 1.27 k/uL (0-1.0); Neutrophils % (M) 70 %; Nucleated Red Blood Cells 0 /100 WBC (0-0); Total Cells Counted 100
[2019-04-29 07:13] LABS: Albumin 2.7 g/dL (3.5-5.0); Calcium 7.8 mg/dL (8.4-10.2); Magnesium 2.3 mg/dL (1.6-2.3); Phosphorus 4.4 mg/dL (2.5-4.5); Potassium 4.6 mmol/L (3.5-5.1); Total Protein 4.9 g/dL (6.3-8.2)
--- NOTE | 2019-04-29 08:14 | CONS ---
CONSULTATION PULMONARY/CRITICAL CARE CONSULTATION: DATE OF SERVICE: 04/29/2019 This is a pleasant 63-year-old male who presented to the emergency department with difficulty in breathing. He apparently developed a couple days prior to admission. He also complained of a nonproductive dry cough. No chest pain or pressure. No palpitations. The patient was recently diagnosed with atrial fibrillation about 10 days ago. He was placed on Eliquis. I was called by the ER doctor. The patient apparently was found to have a pericardial effusion. I ordered a stat blood gas which showed a PO2 of 55, a pCO2 of 43, a PaO2 of 55, a PaCO2 of 43 and a pH of 7.50. This is consistent with metabolic alkalosis. In addition, I asked for a stat echocardiogram to see whether or not the pericardial effusion was causing any hemodynamic compromise. The patient was clinically stable, though. The patient was admitted to the ICU primarily as an overflow patient. He is getting a saline IV at KVO and full O2 of 5 L by nasal cannula. He apparently did have dialysis on the day of admission which was April 28. Currently feeling well. No particular complaints. CURRENT MEDICATIONS: Include Eliquis, baclofen, eye drops, calcium acetate, Plavix, Lasix, isoniazid, metoprolol, nitroglycerin sublingual, vitamin B6, Flomax, and Norvasc. ALLERGIES: Denied. MEDICAL HISTORY: Includes atrial fibrillation, possible COPD, renal failure requiring hemodialysis. SURGICAL HISTORY: Includes heart catheterization with stent placement. SOCIAL HISTORY: Positive for previous tobacco use. Denies alcohol or illicit drug use. FAMILY HISTORY: Noncontributory. The patient states his mother and father were both relatively healthy without any major medical problems. REVIEW OF SYSTEMS: CONSTITUTIONAL: Negative. NEUROLOGIC: Negative. HEENT: Negative. CARDIOVASCULAR: Negative. PULMONARY: Shortness of breath, dry cough. GI: Negative. : Negative. RHEUMATOLOGIC: Negative. IMMUNOLOGIC: Negative. ENDOCRINOLOGIC: Negative. PHYSICAL EXAMINATION: Current vital signs are reviewed. Temperature is 99.3, heart rate about 100 and irregular, respiratory rate 15, blood pressure 99/78, mean 85, saturations are mid-to- high 90s on 5 L nasal cannula. The patient is sitting upright in bed. Appears to be in no distress. No audible wheezing, use of accessory muscles or conversational dyspnea noted. HEENT: Examination is grossly unremarkable. Nasal O2 noted. NECK: Supple. Full range of motion. No adenopathy. CARDIOVASCULAR: Examination reveals a regular rhythm and rate. Heart rate about 103. S1, S2 normal. No murmur. Heart sounds are distant. LUNGS: Reveal a few scattered rhonchi. No crackles or wheezes. ABDOMEN: Soft, bowel sounds are heard. EXTREMITIES: Intact. No significant edema. SKIN: Without rash. NEUROLOGIC: Examination is brief but nonfocal. A chest x-ray that was done shows some cardiomegaly. There may be a small left-sided pleural effusion. It may be loculated. A CT scan of the chest reveals a large pericardial effusion with a depth of 2.1. There were small bilateral effusions. Chest x-ray today shows cardiomegaly with increasing bilateral pleural effusions. LAB DATA: Reviewed. White count 9.8, hemoglobin 10.9, hematocrit 33.9, platelet count is normal, blood gas has been noted. Sodium 135, potassium 4.6, chloride 94, CO2 is 30, anion gap is 11, BUN and creatinine were 44 and 5.20. N terminal proBNP is 15,100. Troponin was normal. Microbiologic studies are negative or pending. Medications are reviewed. The patient is currently on appropriate medications. He is receiving 2 antibiotics in form of Zosyn and vancomycin. ASSESSMENT: 1. Shortness of breath, likely related to mild fluid overload along with a pericardial effusion, doubt pneumonia. 2. History of recently diagnosed atrial fibrillation. 3. Possible underlying chronic obstructive pulmonary disease. 4. End-stage renal disease, currently on 3-time a week hemodialysis. 5. History of coronary artery disease with previous stent placement. PLAN: The patient seems to be doing relatively well. I will make sure that his medications are appropriate. I believe his antibiotics can be escalated. Additional recommendations and suggestions are forthcoming. The patient can likely move out of the ICU down to [place]. He is an overflow patient. Will continue to follow. Prognosis is guarded. Clinically, he looks very stable. MMODL / IJN: [id number] /
[2019-04-29] MEDS ORDERED: CLOPIDOGREL 75 MG TAB PO SCH (09:00)
[2019-04-29] MEDS ORDERED: amLODIPine 10 MG TAB PO SCH (09:00)
[2019-04-29] MEDS ORDERED: NON-FORMULARY DRUG (Pyridoxine Hcl (Vitamin B6) [Vitamin B-6] 100 MG) PO SCH (09:00)
[2019-04-29] MEDS: BRIMONIDINE TARTRATE 0.2% DROPS 5 ML BTL LEFT EYE SCH (09:39)
[2019-04-29] MEDS: DORZOLAMIDE HCL 2% DROPS 10 ML BTL LEFT EYE SCH (09:40)
--- NOTE | 2019-04-29 10:21 | CONS ---
CONSULTATION Mr. Toscano is a 63-year-old male with a history of coronary artery disease status post multivessel stenting, history of end-stage renal disease on hemodialysis, who presented with symptoms of progressive dyspnea with cough, nonproductive. Recently he was in the hospital with similar symptoms and atrial fibrillation was noted. Anticoagulation was initiated. The patient has not been feeling better and he came into the emergency room. A CAT scan obtained the emergency room revealed evidence of pericardial effusion. It was reported on his prior echocardiogram, although I do not have the report of his most recent echo. He denies any dizziness or palpitation. He feels his heart going fast. He denies any syncope. No PND. No orthopnea. No peripheral edema. His coronary risk factors remarkable for a history of hypertension, hyperlipidemia, intolerant to statin. He has a history of end-stage renal disease. MEDICATION: His medications at home include Norvasc 10 mg daily, Lopressor 12.5 mg twice a day, Lasix 80 mg twice a day, Plavix 75 mg daily, Eliquis 2.5 mg twice a day, and baclofen in addition to Flomax. REVIEW OF SYSTEMS: RESPIRATORY SYSTEM: He had dyspnea on exertion and a cough. He has no wheezing. He had felt fever at home. GI SYSTEM: He has some nausea. No GI bleeding. SYSTEM: He has end-stage renal disease on hemodialysis. NERVOUS SYSTEM: No stroke or seizure. PHYSICAL EXAMINATION: He is a 63-year-old male, alert, oriented in no apparent distress. Blood pressure 122/80 with the heart rate in the 100s, afebrile. HEAD: Normocephalic. EYES: Sclerae anicteric. NECK: Good carotid upstroke. No bruit. No jugular venous distention. LUNGS: Clear to auscultation. HEART: Irregular, irregular, S1, S2. No S3 with systolic murmur. No diastolic murmur. No rub. ABDOMEN: Soft, nontender. Positive bowel sounds. No organomegaly. EXTREMITIES: No edema. LAB DATA: Lab data revealed hemoglobin of 10.9, BUN and creatinine 44 and 5.2, potassium 4.6. His procalcitonin is 2.94. NT proBNP is 15,100. Troponin less than 0.012. EKG reveals atrial fibrillation with nonspecific ST-T wave changes. Chest x-ray shows increased bilateral consolidation suggestive of pneumonia. Cardiomegaly was noted. IMPRESSION: 1. Progressive dyspnea with possible pneumonia, possibility of congestive heart failure with fluid overload and preserved systolic function in the past. 2. Pericardial effusion. No clear evidence of tamponade at this time. Patient underwent dialysis and he is hemodynamically stable. 3. Persistent atrial fibrillation with episode of rapid ventricular response. 4. Status post multivessel stenting. 5. End-stage renal disease, on hemodialysis. 6. Hypertension. 7. Hyperlipidemia, intolerant to the statin. RECOMMENDATION: I would recommend to obtain a repeat echocardiogram to evaluate if there is any evidence of tamponade. Clinically, he does not appear to have tamponade based on the fact that he is hemodynamically stable on dialysis. We will continue the rest of his medical regimen and depending on his progress, further recommendation will be made. Thank you for this consult. We will follow with you. MARLEY / JUSTINN: [id number] /
[2019-04-29] MEDS: FUROSEMIDE 10 MG/ML 10 ML VIAL IV SCH ×2 (11:25→20:24)
[2019-04-29] MEDS: CLOPIDOGREL 75 MG TAB PO SCH (11:26)
[2019-04-29] MEDS: EZETIMIBE 10 MG TAB PO SCH (11:26)
[2019-04-29] MEDS: METOPROLOL TARTRATE 25 MG TAB PO SCH ×2 (11:26→20:27)
[2019-04-29] MEDS: TAMSULOSIN 0.4 MG CAP.ER.24H PO SCH (11:26)
[2019-04-29] MEDS: APIXABAN 2.5 MG TABLET PO SCH ×2 (11:27→20:26)
[2019-04-29] MEDS: amLODIPine 5 MG TAB PO SCH (11:27)
[2019-04-29] MEDS ORDERED: VANCOMYCIN 1,500 MG in SODIUM CHLORIDE 0.9% 250 ML IVPB ONE (12:00)
[2019-04-29] MEDS: INDOMETHACIN 25 MG CAP PO SCH ×2 (14:39→20:26)
--- NOTE | 2019-04-29 15:44 | P.GSCN ---
History of Present Illness Consult date: 04/29/19 Reason for Consult: Pericardial effusion Requesting physician: Yesenia Avelar History of present illness: This is a 63-year-old gentleman who is followed by Dr. Bains on an outpatient basis. He is a past medical history significant for end-stage renal disease and is on hemodialysis, hypertension, hyperlipidemia, history of coronary artery disease with previous multifocal stenting and as on Plavix, recent diagnosis of paroxysmal atrial fibrillation and is on Elliquis, chronic obstructive pulmonary disease, history of GI bleed and BPH. The patient has had complaints of feeling short of breath, generalized weakness, decreased appetite, low-grade fever and nonproductive cough over the past few days. He denies any nausea, vomiting, diarrhea, constipation, dizziness or palpitations. The patient also had a recen t admission to the hospital on 04/01/2019 he presented to the hospital emergency department with complaints of chest pain. A 2-D echocardiogram was completed at that time which showed him to have an overall left ventricular systolic function to be normal with an ejection fraction between 55 and 60%, mild to moderate tricuspid regurgitation, mild mitral valve regurgitation, and no pericardial effusion. The patient also had a another admission to the hospital on 04/12/2019 with complaints of shortness of breath. The patient at that time was already undergoing treatment for strep throat and was on oral antibiotic course for 10 days. During that hospitalization a limited 2-D echocardiogram was completed on 04/14/2019 which demonstrated him to be in atrial fibrillation and a moderate, generalized pericardial effusion to be present. On presentation to the emergency department yesterday 04/28/2019 a computed tomography scan of his chest was completed which revealed evidence of a pericardial effusion. A 2-D echocardiogram was completed although a formal report is not yet available. Cu rrently the patient is hemodynamically stable and is currently on no inotropic or pressor support. He is receiving hemodialysis with a blood pressure of 115/72 and a pulse rate of 92. Due to the computed tomography scan of his chest results showing a pericardial effusion a consult was placed to Dr. Ashok Jenkins from cardiothoracic surgery for further evaluation and treatment recommendations. Review of Systems 14 point review of systems was completed and was negative except as mentioned in the HPI. Past Medical History Past Medical History: Atrial Fibrillation, Coronary Artery Disease (CAD), Chest Pain / Angina, COPD, Dialysis, GERD/Reflux, GI Bleed, Hyperlipidemia, Hypertension, Renal Disease Additional Past Medical History / Comment(s): AV Fistula on left arm. History of Any Multi-Drug Resistant Organisms: None Reported Past Surgical History: Heart Catheterization With Stent Additional Past Surgical History / Comment(s): AV Fistula on left arm. Past Anesthesia/Blood Transfusion Reactions: No Reported Reaction Date of Last Stent Placement:: 05/2018 Past Psychological History: No Psychological Hx Reported Smoking Status: Former smoker Past Alcohol Use History: None Reported Past Drug Use History: None Reported - Past Family History Mother Family Medical History: Myocardial Infarction ([place]) Medications and Allergies Home Medications Medication Instructions Recorded Confirmed Type Apixaban [Eliquis] 2.5 mg PO BID 04/28/19 04/28/19 History Baclofen 2.5 mg PO BID PRN 04/28/19 04/28/19 History Brimonidine/Dorzolamide/Pf 1 drop LEFT EYE DAILY 04/28/19 04/28/19 History [Brimonidine 0.15%-Dorzolam 2%] Calcium Acetate [Phoslo] 1,334 mg PO TID 04/28/19 04/28/19 History Clopidogrel [Plavix] 75 mg PO DAILY 04/28/19 04/28/19 History Furosemide [Lasix] 80 mg PO BID@0900,1600 04/28/19 04/28/19 History Isoniazid 300 mg PO DAILY 04/28/19 04/28/19 History Metoprolol Tartrate [Lopressor] 12.5 mg PO BID 04/28/19 04/28/19 History Nitroglycerin Sl Tabs [Nitrostat] 0.4 mg SUBLINGUAL Q5M PRN 04/28/19 04/28/19 History Pyridoxine HCl (Vitamin B6) 100 mg PO DAILY 04/28/19 04/28/19 History [Vitamin B-6] Tamsulosin HCl [Flomax] 0.4 mg PO DAILY 04/28/19 04/28/19 History amLODIPine [Norvasc] 10 mg PO DAILY 04/28/19 04/28/19 History Allergies Allergy/AdvReac Type Severity Reaction Status Date / Time No Known Allergies Allergy Verified 04/28/19 11:30 Surgical - Exam Vital Signs Temp Pulse Resp BP Pulse Ox 99.2 F 116 H 18 144/91 95 04/28/19 11:34 04/28/19 11:34 04/28/19 11:34 04/28/19 11:34 04/28/19 11:34 - General no distress, no pain, chronically ill - Eyes PERRL, normal ocular movement - ENT normal pinna, normal nares, normal mucosa, no hearing loss, no congestion - Neck no lymphadenopathy. no masses, trachea midline, no venous distension carotid bruit: left - Respiratory Essentially clear throughout, diminished to his bilateral bases. Respirations are symmetrical and nonlabored. Oxygen saturation is 100% on 5 L nasal cannula. No wheezing, rhonchi or crackles present. - Cardiovascular Irregular rhythm consistent with atrial fibrillation, controlled rate. Bedside telemetry showing atrial fibrillation heart rate 92. S1 and S2 present, negative for S3 or gallop. Systolic murmur present heard best to his right sternal border 2/6. +1 edema to his bilateral lower extremities. - Abdomen Abdomen soft, nontender nondistended. Active bowel sounds present all 4 abdominal quadrants. No guarding or rigidity. No organomegaly present. - Genitourinary Hemodialysis, on schedule for Sunday. AV fistula left arm with good thrill and bruit. - Rectum Deferred - Integumentary no rash, no growths, no abnormal pigmentation - Neurologic Alert and oriented 3 no focal deficits. normal coordination, normal sensation - Musculoskeletal Generalized weakness normal gait, normal posture - Psychiatric oriented to time, oriented to person, oriented to place, speech is normal, memory intact Results - Labs 04/29/19 05:04 04/29/19 06:41 Abnormal Lab Results - Last 24 Hours (Table) 04/28/19 04/28/19 04/28/19 Range/Units 12:17 17:13 19:36 RBC (4.30-5.90) m/uL Hgb (13.0-17.5) gm/dL Hct (39.0-53.0) % RDW (11.5-15.5) % Monocytes # (Manual) (0-1.0) k/uL ABG pH 7.50 H (7.35-7.45) ABG pO2 55 L* (83-108) mmHg ABG HCO3 34 H (21-25) mmol/L ABG Total CO2 35 H (19-24) mmol/L ABG O2 Saturation 90.4 L (94-97) % Sodium (137-145) mmol/L Chloride (98-107) mmol/L BUN (9-20) mg/dL Creatinine (0.66-1.25) mg/dL Glucose (74-99) mg/dL POC Glucose (mg/dL) 170 H (75-99) mg/dL Calcium (8.4-10.2) mg/dL Total Bilirubin (0.2-1.3) mg/dL AST (17-59) U/L Total Protein (6.3-8.2) g/dL Albumin (3.5-5.0) g/dL Procalcitonin 2.94 H (0.02-0.09) ng/mL 04/29/19 04/29/19 04/29/19 Range/Units 05:04 05:04 06:41 RBC 3.92 L (4.30-5.90) m/uL Hgb 10.9 L (13.0-17.5) gm/dL Hct 33.9 L (39.0-53.0) % RDW 18.4 H (11.5-15.5) % Monocytes # (Manual) 1.27 H (0-1.0) k/uL ABG pH (7.35-7.45) ABG pO2 (83-108) mmHg ABG HCO3 (21-25) mmol/L ABG Total CO2 (19-24) mmol/L ABG O2 Saturation (94-97) % Sodium 133 L 135 L (137-145) mmol/L Chloride 95 L 94 L (98-107) mmol/L BUN 43 H 44 H (9-20) mg/dL Creatinine 5.06 H 5.20 H (0.66-1.25) mg/dL Glucose 101 H (74-99) mg/dL POC Glucose (mg/dL) (75-99) mg/dL Calcium 7.8 L 7.8 L (8.4-10.2) mg/dL Total Bilirubin 1.7 H (0.2-1.3) mg/dL AST 105 H (17-59) U/L Total Protein 5.8 L 4.9 L (6.3-8.2) g/dL Albumin 3.0 L 2.7 L (3.5-5.0) g/dL Procalcitonin (0.02-0.09) ng/mL Microbiology - Last 24 Hours (Table) 04/28/19 12:17 Blood Culture - Preliminary Blood No Growth after 24 hours 04/28/19 21:11 Gram Stain - Preliminary Sputum Diabetes panel 04/29/19 04/29/19 Range/Units 05:04 06:41 Sodium 133 L 135 L (137-145) mmol/L Potassium 4.6 (3.5-5.1) mmol/L Chloride 95 L 94 L (98-107) mmol/L Carbon Dioxide 27 30 (22-30) mmol/L BUN 43 H 44 H (9-20) mg/dL Creatinine 5.06 H 5.20 H (0.66-1.25) mg/dL Glucose 95 101 H (74-99) mg/dL Calcium 7.8 L 7.8 L (8.4-10.2) mg/dL AST 105 H 35 (17-59) U/L ALT 48 52 (21-72) U/L Alkaline Phosphatase 72 78 (38-126) U/L Total Protein 5.8 L 4.9 L (6.3-8.2) g/dL Albumin 3.0 L 2.7 L (3.5-5.0) g/dL Calcium panel 04/29/19 04/29/19 Range/Units 05:04 06:41 Calcium 7.8 L 7.8 L (8.4-10.2) mg/dL Phosphorus 4.4 (2.5-4.5) mg/dL Albumin 3.0 L 2.7 L (3.5-5.0) g/dL Pituitary panel 04/29/19 04/29/19 Range/Units 05:04 06:41 Sodium 133 L 135 L (137-145) mmol/L Potassium 4.6 (3.5-5.1) mmol/L Chloride 95 L 94 L (98-107) mmol/L Carbon Dioxide 27 30 (22-30) mmol/L BUN 43 H 44 H (9-20) mg/dL Creatinine 5.06 H 5.20 H (0.66-1.25) mg/dL Glucose 95 101 H (74-99) mg/dL Calcium 7.8 L 7.8 L (8.4-10.2) mg/dL Adrenal panel 04/29/19 04/29/19 Range/Units 05:04 06:41 Sodium 133 L 135 L (137-145) mmol/L Potassium 4.6 (3.5-5.1) mmol/L Chloride 95 L 94 L (98-107) mmol/L Carbon Dioxide 27 30 (22-30) mmol/L BUN 43 H 44 H (9-20) mg/dL Creatinine 5.06 H 5.20 H (0.66-1.25) mg/dL Glucose 95 101 H (74-99) mg/dL Calcium 7.8 L 7.8 L (8.4-10.2) mg/dL Total Bilirubin 1.7 H 1.0 (0.2-1.3) mg/dL AST 105 H 35 (17-59) U/L ALT 48 52 (21-72) U/L Alkaline Phosphatase 72 78 (38-126) U/L Total Protein 5.8 L 4.9 L (6.3-8.2) g/dL Albumin 3.0 L 2.7 L (3.5-5.0) g/dL - Imaging Chest x-ray: report reviewed, image reviewed CT scan - chest: report reviewed, image reviewed EKG: image reviewed (2-D echocardiogram was reviewed by Dr. Ashok Jenkins.) Assessment and Plan Assessment: 1. Pericardial effusion with no clear evidence of tamponade, he is hemodynamically stable on hemodialysis 2. Progressive dyspnea 3. Paroxysmal atrial fibrillation, on anticoagulation Eliquis 4. History of coronary artery disease, status post multivessel stenting, on Plavix 5. History of hypertension 6. End-stage renal disease on hemodialysis Sunday and Fridays 7. Hyperlipidemia 8. Ischemic cardiomyopathy 9. BPH 10. Osteoarthritis Plan: The patient was seen and examined. His chart diagnostics were reviewed by Dr. Ashok Jenkins from cardiothoracic surgery. Currently the patient is receiving hemodialysis and is hemodynamically stable and is on no inotropic or pressor support. The 2-D echocardiogram results were reviewed by Dr. Ashok Jenkins and the results were reviewed with Dr. Dunn. At this time the patient is not felt to have a cardiac tamponade and can be treated medically. No surgical intervention is warranted at this time. This is been discussed with the patient. Per the cardiothoracic surgery standpoint when okay with cardiology he can be resumed on his Plavix and Eliquis. Continue GI and DVT prophylaxis. Hemodialysis management per nephrology. Medical management per primary care service. More recommendations to follow based on patient's clinical course. The pericardial effusion can be followed with a follow-up 2-D echocardiogram. Thank you Dr. Avelar for this consult and we'll look forward to working with you in the care of your patient. Time with Patient: Greater than 30
--- NOTE | 2019-04-29 15:50 | P.PN ---
Subjective Progress Note Date: 04/29/19 This is a 63-year-old gentleman patient of Dr. Bains. 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 Patient had been ill for the past 3 days, seen in the clinic by FINAL INSPECTOR AND TESTER, and was given a mucolytic. Subsequent to that patient has increasing shortness of breath, fever yesterday, productive cough mainly white sputum, he has temperature at home, approximately 100, he had been admitted off and on for the same problem since 04/01/2019, when he presented initially with chest pain. He was seen by Dr. Nuñez during these episodes, and no blood cultures were isolated from the initial admission April 02, except during the second admission with staph epidermidis in the urine culture, he also had an abdominal ultrasound 03/15/2019 for his chronic cholecystitis was noted, was seen by Dr. Fisher, has elevated liver function tests at that time with no symptoms of the gallbladder, has no acute surgical intervention for the gallbladder that time, patient was seen by GI Dr. Fan for possible MRCP,, none was planned at that time as they taught the elevated liver function tests could be biochemically related to transaminitis from CHF A. fib with RVR. Per patient's recollection, patient gets better after not antibiotic is completed, 2 days thereafter, patient doesn't feel well, has fever, cough shortness of breath, no abdominal pain, no diarrhea, he has soft stools his main complaint is cough and shortness of breath. No dysuria and hematuria In the emergency room, he was evaluated for shortness of breath and cough and fever, chest x-ray shows loculated little effusion, left costophrenic angle, T- max ER 1991, blood pressure 144/91 95% on room air, previous CAT scans were reviewed from 04/03/2019 shows atelectasis bilateral, without any pleural effusion, indeterminate hepatic and renal lesions as discussed performed without contrast studies. CT high resolution to be done, consult with Dr. Nuñez infectious disease, consult with nephrology for maintenance hemodialysis, but cultures obtained, IV Zosyn IV vancomycin patient is high risk for sepsis secondary to his HD program 04/28, 3:55 PM, i was notified regarding of red critical level for CAT scan, showing a large pericardial effusion, 2.1 cm in depth, consult urgent to cardiology Dr. Dunn, consultation stat to thoracic surgeon Dr. Mackay, hold eliquis Plavix, until recommendations from both services cardiology and cardiothoracic surgeon. IV Lasix, ICU admission, high risk for tamponade discussed with ER physician Dr. Oh, consult with engineer rf deployment Dr. Bejarano 04/29: Patient remains in the intensive care unit as an overflow for selective care. He has been A. fib, rate controlled. He has been resumed on eliquis and Plavix by cardiology. Dr. Dunn also increase his Lopressor to 25 mg twice daily. Patient has been seen by cardiothoracic surgery and reviewed most recent echo at the beginning of this month and pericardial effusion is actually smaller at this point. Patient also has pleural effusions with no plan for any intervention at this time. Patient is also followed by Dr. Hernandez. We will start Indocin. He has ordered for a repeat echocardiogram. Dr. Nuñez is also on consult. Objective - Vital Signs Vital signs: Vital Signs Temp 98.5 F 04/29/19 08:00 Pulse 105 H 04/29/19 10:00 Resp 21 04/29/19 10:00 BP 116/91 04/29/19 10:00 Pulse Ox 99 04/29/19 10:00 Intake & Output 04/28/19 04/29/19 04/29/19 18:59 06:59 18:59 Intake Total 560 Output Total 0 Balance 560 Weight 83 kg Intake: IV 320 Piperacillin-Tazobactam 3 100 .375 gm In Sodium Chloride 0.9% 100 ml @ 25 mls/hr IVPB Q12H [facility] Rx# :[id number] Sodium Chloride 0.9% 1, 220 000 ml @ 20 mls/hr IV . Q24H [facility] Rx#:[id number] Oral 240 Output: Urine 0 - Exam Review of Systems Constitutional: Reports anorexia, Reports chills, Reports fever, Reports lethargy, Reports malaise, Denies chronic headaches, Denies chronic pain, Denies daytime sleepiness, Denies fatigue, Denies night sweats, Denies poor appetite, Denies sweats, Denies weakness, Denies weight gain, Denies weight loss Ears, nose, mouth and throat: Denies ant. neck pain, Denies bleeding gums, Denies dental pain, Denies dysphagia, Denies epistaxis, Denies headache, Denies hoarseness, Denies mouth pain, Denies nasal congestion, Denies nasal discharge, Denies neck fullness/pressure, Denies neck lump, Denies nose pain, Denies od ynophagia, Denies post-nasal drip, Denies sinus pain, Denies sinus pressure, Denies swelling in mouth, Denies swelling in throat, Denies sore throat, Denies vertigo, Denies voice changes Cardiovascular: Denies chest pain, denies chest pressure Respiratory: Reports shortness of breath Gastrointestinal: Denies nausea, denies vomiting, denies abdominal pain Musculoskeletal: Denies myalgias Integumentary: Denies rash Neurological: Denies aphasia, Denies ataxia, Denies balance difficulties, Denies burning pain, Denies change in mentation, Denies change in smell/taste, Denies change in speech, Denies confusion, Denies convulsions, Denies double vi denia, Denies gait dysfunction, Denies head injury, Denies headaches, Denies hearing difficulties, Denies lack of coordination, Denies loss of vision, Denies memory loss, Denies migraines, Denies motor disturbance, Denies numbness, Denies paralysis, Denies paresthesias, Denies seizures, Denies sensory deficit, Denies spasticity, Denies syncope, Denies tic, Denies tingling, Denies transient paralysis, Denies tremors, Denies vertigo, Denies weakness, Denies visual changes Hematologic/Lymphatic: Reports easy bleeding Allergic/Immunologic: Denies allergic rhinitis, Denies anaphylaxis, Denies angioedema, Denies gluten intolerance, Denies persistent infections, Denies seasonal allergies, Denies urticaria, Denies wheezing Physical exam: - Constitutional General appearance: cooperative, no acute distress, resting in ICU bed - EENT Eyes: anicteric sclerae, EOMI, PERRLA, dentition normal, normal appearance ENT: hearing grossly normal, NA/AT, normal oropharynx - Neck Neck: normal ROM - Respiratory Respiratory: bilateral: CTA, negative: diminished, dullness, rales - Cardiovascular Rhythm: regular Heart sounds: normal: S1, S2 Abnormal Heart Sounds: no systolic murmur, no diastolic murmur, no rub, no S3 Gallop, no S4 Gallop, no click, no other - Gastrointestinal General gastrointestinal: normal bowel sounds, soft - Integumentary Integumentary: decreased turgor, normal - Neurologic Neurologic: CNII-XII intact - Musculoskeletal Musculoskeletal: strength equal bilaterally - Psychiatric Psychiatric: A&O x's 3, appropriate affect, intact judgment & insight - Labs CBC & Chem 7: 04/29/19 05:04 04/29/19 06:41 Labs: Abnormal Lab Results - Last 24 Hours (Table) 04/28/19 04/28/19 04/28/19 Range/Units 12:17 12:17 12:17 RBC 4.27 L (4.30-5.90) m/uL Hgb 11.8 L (13.0-17.5) gm/dL Hct 37.8 L (39.0-53.0) % RDW 18.7 H (11.5-15.5) % Neutrophils # 8.1 H (1.3-7.7) k/uL Lymphocytes # 0.5 L (1.0-4.8) k/uL Monocytes # (Manual) (0-1.0) k/uL PT 12.8 H (9.0-12.0) sec INR 1.2 H (<1.2) APTT 33.3 H (22.0-30.0) sec ABG pH (7.35-7.45) ABG pO2 (83-108) mmHg ABG HCO3 (21-25) mmol/L ABG Total CO2 (19-24) mmol/L ABG O2 Saturation (94-97) % Sodium 135 L (137-145) mmol/L Chloride 92 L (98-107) mmol/L Carbon Dioxide 33 H (22-30) mmol/L BUN 29 H (9-20) mg/dL Creatinine 3.91 H (0.66-1.25) mg/dL Glucose 170 H (74-99) mg/dL POC Glucose (mg/dL) (75-99) mg/dL Calcium (8.4-10.2) mg/dL Total Bilirubin (0.2-1.3) mg/dL AST (17-59) U/L Creatine Kinase 47 L (55-170) U/L Total Protein 5.7 L (6.3-8.2) g/dL Albumin 3.2 L (3.5-5.0) g/dL Procalcitonin (0.02-0.09) ng/mL 04/28/19 04/28/19 04/28/19 Range/Units 12:17 17:13 19:36 RBC (4.30-5.90) m/uL Hgb (13.0-17.5) gm/dL Hct (39.0-53.0) % RDW (11.5-15.5) % Neutrophils # (1.3-7.7) k/uL Lymphocytes # (1.0-4.8) k/uL Monocytes # (Manual) (0-1.0) k/uL PT (9.0-12.0) sec INR (<1.2) APTT (22.0-30.0) sec ABG pH 7.50 H (7.35-7.45) ABG pO2 55 L* (83-108) mmHg ABG HCO3 34 H (21-25) mmol/L ABG Total CO2 35 H (19-24) mmol/L ABG O2 Saturation 90.4 L (94-97) % Sodium (137-145) mmol/L Chloride (98-107) mmol/L Carbon Dioxide (22-30) mmol/L BUN (9-20) mg/dL Creatinine (0.66-1.25) mg/dL Glucose (74-99) mg/dL POC Glucose (mg/dL) 170 H (75-99) mg/dL Calcium (8.4-10.2) mg/dL Total Bilirubin (0.2-1.3) mg/dL AST (17-59) U/L Creatine Kinase (55-170) U/L Total Protein (6.3-8.2) g/dL Albumin (3.5-5.0) g/dL Procalcitonin 2.94 H (0.02-0.09) ng/mL 04/29/19 04/29/19 04/29/19 Range/Units 05:04 05:04 06:41 RBC 3.92 L (4.30-5.90) m/uL Hgb 10.9 L (13.0-17.5) gm/dL Hct 33.9 L (39.0-53.0) % RDW 18.4 H (11.5-15.5) % Neutrophils # (1.3-7.7) k/uL Lymphocytes # (1.0-4.8) k/uL Monocytes # (Manual) 1.27 H (0-1.0) k/uL PT (9.0-12.0) sec INR (<1.2) APTT (22.0-30.0) sec ABG pH (7.35-7.45) ABG pO2 (83-108) mmHg ABG HCO3 (21-25) mmol/L ABG Total CO2 (19-24) mmol/L ABG O2 Saturation (94-97) % Sodium 133 L 135 L (137-145) mmol/L Chloride 95 L 94 L (98-107) mmol/L Carbon Dioxide (22-30) mmol/L BUN 43 H 44 H (9-20) mg/dL Creatinine 5.06 H 5.20 H (0.66-1.25) mg/dL Glucose 101 H (74-99) mg/dL POC Glucose (mg/dL) (75-99) mg/dL Calcium 7.8 L 7.8 L (8.4-10.2) mg/dL Total Bilirubin 1.7 H (0.2-1.3) mg/dL AST 105 H (17-59) U/L Creatine Kinase (55-170) U/L Total Protein 5.8 L 4.9 L (6.3-8.2) g/dL Albumin 3.0 L 2.7 L (3.5-5.0) g/dL Procalcitonin (0.02-0.09) ng/mL Microbiology - Last 24 Hours (Table) 04/28/19 21:11 Gram Stain - Preliminary Sputum Assessment and Plan Plan: 1. Recurrent fever with pneumonitis, atypical pneumonia with loculated fluid, pleural effusions on chest x-ray findings possible lung abscess left lower, patient will be admitted with consultation to infectious disease Dr. Nuñez., IV Zosyn and IV vancomycin, cannot rule out facility acquired pneumonia, showing a loculated left costal phrenic angle pleural effusion, blood cultures have been sent, will try to obtain sputum cultures, and CT of the chest high resolution. Lactic acid is normal, sputum cultures if able. 2. Large pericardial effusion, colchicine 0.6 mg, aspirin, consults with cardiothoracic surgery, cardiology and intensive is appreciated. No plan for surgical intervention. 3. Chronic atrial fibrillation with RVR. Cardiology consult appreciated. Continue metoprolol 25 by mouth twice a day. Eliquis 2.5 mg twice a day 4. Chronic cholecystitis. Was seen by Dr. Devine in the past, no surgical plans, transaminitis has resolved no current symptoms. 5. End-stage renal failure on dialysis Sunday with graft in left arm. Nephrology consult Continue with dialysis as ordered by nephrology. 6. Generalized weakness. Continue hydration. 7. Latent tuberculosis. Continue isoniazid. To complete program as designated for six-month treatment, patient most likely has 2 months to go 40s 8. Hypertension. Continue metoprolol 25 mg twice daily. Norvasc 5 mg daily Lasix 80 mg IV twice a day 9. Hyperlipidemia. hold Lipitor 40 mg by mouth daily 10. Coronary artery disease with multiple vessel stenting. Continue Lipitor 11. Ischemic cardiomyopathy. Continue metoprolol 12. Osteoarthritis. Continue baclofen 5 mg by mouth twice a day, continue [place] 5/325 one tablet every 6 hours as needed for pain 13. BPH. Continue Flomax 0.4 mg daily 14. Difficulty sleeping. Melatonin 6 mg by mouth at bedtime 15. GI prophylaxis. Protonix 40 mg IV daily 16. DVT prophylaxis. Eliquis Discharge plan: Home Impression and plan of care have been directed as dictated by the signing physician. Anita Amaya nurse practitioner acting as scribe for signing ph ysician.
[2019-04-29] MEDS: SODIUM CHLORIDE 0.9% 1,000 ML IV SCH (16:10)
[2019-04-29] MEDS: PANTOPRAZOLE 40 MG TABLET PO SCH (17:35)
--- NOTE | 2019-04-29 18:06 | CONS ---
CONSULTATION REASON FOR CONSULT: End-stage renal disease. HISTORY OF PRESENT ILLNESS: Patient is a 63-year-old male with end-stage renal disease, on hemodialysis on a Sunday, Sunday, Sunday schedule. The patient was admitted to the hospital with complaints of shortness of breath. The patient has not missed any hemodialysis treatments as outpatient and he has been compliant with his fluid intake as outpatient. He did have volume overload during his last admission and was aggressively dialyzed. The patient was also diagnosed with atrial fibrillation on his last admission about 2 weeks ago and was started on Eliquis. Chest CT on this admission showed evidence of pericardial effusion. The patient is currently admitted to the ICU. A cardiothoracic surgery consult has been placed as well. The patient denied any fever, nausea, vomiting, abdominal pain or diarrhea. PAST MEDICAL HISTORY: End-stage renal disease, hypertension, COPD, atrial fibrillation, recent diagnosis; coronary artery disease. PAST SURGICAL HISTORY: Cardiac catheterization, AV fistula placement, coronary stent placement. SOCIAL HISTORY: Positive for patient being a former smoker. No history of drug abuse or alcohol abuse. MEDICATIONS: Medications at home prior to admission included Eliquis, baclofen, PhosLo, Plavix, Lasix, INH, Lopressor, Nitrostat, Flomax, Norvasc. ALLERGIES: None. EXAMINATION: Patient is comfortable, awake. He is mildly short of breath. He is not in any acute distress. Blood pressure is this morning 116/91, heart rate 105 per minute, patient is afebrile. Examination of the heart S1, S2. Examination of the lungs, bilateral breath sounds are heard. Decreased breath sounds at bases. Abdomen is soft, nontender. Examination lower extremities shows no evidence of edema. HELP DESK ASSISTANT exam is grossly intact. Patient is moving all 4 extremities. LABS SHOW: Hemoglobin 10.9 g/dL, sodium 135, potassium 4.6, serum creatinine 5.2, calcium was 7.8, phosphorus 4.4, albumin 2.7. Chest CT done yesterday showed a large pericardial effusion, depth of 2.1 cm with small bilateral pleural effusions noted as well. ASSESSMENT: 1. End-stage renal disease on hemodialysis on a Sunday, Sunday, Sunday schedule. The patient had his hemodialysis treatment as outpatient yesterday. He was dialyzed again today mainly to help with the fluid overload and in view of his pericardial effusion, although I doubt that it is uremic pericarditis. 2. Large pericardial effusion. No evidence of tamponade. I doubt that this is uremic pericarditis. We will continue to dialyze the patient aggressively, however. He has had good clearances as outpatient on dialysis and his BUN and creatinine are not significantly elevated. In view of recent initiation of anticoagulation, there is consideration for possible bleeding, although the patient has not had any significant change in his hemoglobin level. Await cardiothoracic surgery input. In the meantime, we will continue with more frequent dialysis. 3. Volume overload. 4. Chronic kidney disease mineral bone disorder. 5. History of coronary artery disease status post coronary stents. 6. Chronic obstructive pulmonary disease. PLAN: Hemodialysis today. The patient will be dialyzed again tomorrow, which is his regular day. Continue with the phosphate binders. Continue with colchicine and INH. The patient is also on empiric antibiotics. Thank you for this consultation. We will continue to follow the patient with you during his hospitalization. MMODL / IJN: [id number] /
[2019-04-29 20:56] LABS: Appearance,Urine Clear (Clear); Bilirubin,Urine Negative (Negative); Blood,Urine Moderate (Negative); Color,Urine Yellow; Glucose,Urine (UA) Negative (Negative); Ketones,Urine Negative (Negative); Leukocyte Esterase,Urine Small (Negative); Nitrite,Urine Negative (Negative); Protein,Urine 3+ (Negative); RBC,Urine 90 /hpf (0-5); Specific Gravity,Urine 1.013 (1.001-1.035); Squamous Epithelial Cell,Urine <1 /hpf (0-4); Urobilinogen,Urine <2.0 mg/dL (<2.0); WBC,Urine 32 /hpf (0-5)
[2019-04-30] MEDS: PIPERACILLIN-TAZOBACTAM 3.375 GM in SODIUM CHLORIDE 0.9% 100 ML IVPB SCH (02:50)
[2019-04-30 05:35] LABS: Albumin 2.7 g/dL (3.5-5.0); Calcium 8.3 mg/dL (8.4-10.2); Potassium 4.4 mmol/L (3.5-5.1); Total Bilirubin 0.8 mg/dL (0.2-1.3); Total Protein 5.1 g/dL (6.3-8.2)
[2019-04-30 05:36] LABS: Anisocytosis Slight; Basophils % (A) 0 %; Eosinophils # (A) 0.1 k/uL (0-0.7); Eosinophils % (A) 2 %; HCT 35.7 % (39.0-53.0); Hypochromasia Marked; Lymphocytes # (A) 1.1 k/uL (1.0-4.8); Lymphocytes % (A) 13 %; MCH 28.1 pg (25.0-35.0); MCHC 30.7 g/dL (31.0-37.0); MCV 91.4 fL (80.0-100.0); Monocytes # (A) 0.7 k/uL (0-1.0); Monocytes % (A) 9 %; Neutrophils # (A) 5.9 k/uL (1.3-7.7); Neutrophils % (A) 74 %; Platelet Count 150 k/uL (150-450); RDW 18.3 % (11.5-15.5)
[2019-04-30 05:37] LABS: Vancomycin,Random 25.9 ug/mL
[2019-04-30] MEDS: PANTOPRAZOLE 40 MG TABLET PO SCH ×2 (06:41→17:18)
[2019-04-30] MEDS: CALCIUM ACETATE 667 MG CAP PO SCH ×3 (06:41→17:19)
--- NOTE | 2019-04-30 07:47 | P.CONS ---
History of Present Illness - Reason for Consult Consult date: 04/29/19 Sepsis Requesting physician: Yesenia Avelar - Chief Complaint Shortness of breath times few days - History of Present Illness Patient is a 63-year-old male with a past medical history significant for end- stage kidney disease on hemodialysis with a recent diagnosis of atrial fibrillation for the patient will be started on an aggressive the patient presented to the hospital yesterday with a chief complaints of increasing shortness of breath with minimal exertion and now even at rest patient did have chest pain mostly anterior chest more of a sharp to dull aching 3-4 out of 10 and no radiation patient did have mild cough which is mostly dry in nature denies having any URI symptoms no high-grade fever and occasional chills with these symptoms and the patient was evaluated by the physician chest x-ray did shows cardiomegaly and evidence of a left pleural effusion and a CT of the chest did shows large pericardial effusion and bilateral pleural effusions no mention of any consolidation patient did have low-grade fever of 99 for his white count has been normal patient has been admitted to the ICU he was started on Zosyn and vancomycin and infectious disease was consulted for further recommendation regarding antibiotic therapy and possible sepsis, patient did have a history of latent TB for the patient is currently on INH therapy in the outpatient setting for a couple of months now Review of Systems Positive points has been mentioned in HPI rest of the systems are negative Past Medical History Past Medical History: Atrial Fibrillation, Coronary Artery Disease (CAD), Chest Pain / Angina, COPD, Dialysis, GERD/Reflux, GI Bleed, Hyperlipidemia, Hypertension, Renal Disease Additional Past Medical History / Comment(s): AV Fistula on left arm. History of Any Multi-Drug Resistant Organisms: None Reported Past Surgical History: Heart Catheterization With Stent Additional Past Surgical History / Comment(s): AV Fistula on left arm. Past Anesthesia/Blood Transfusion Reactions: No Reported Reaction Date of Last Stent Placement:: 05/2018 Past Psychological History: No Psychological Hx Reported Smoking Status: Former smoker Past Alcohol Use History: None Reported Past Drug Use History: None Reported - Past Family History Mother Family Medical History: Myocardial Infarction ([place]) Medications and Allergies Home Medications Medication Instructions Recorded Confirmed Type Apixaban [Eliquis] 2.5 mg PO BID 04/28/19 04/28/19 History Baclofen 2.5 mg PO BID PRN 04/28/19 04/28/19 History Brimonidine/Dorzolamide/Pf 1 drop LEFT EYE DAILY 04/28/19 04/28/19 History [Brimonidine 0.15%-Dorzolam 2%] Calcium Acetate [Phoslo] 1,334 mg PO TID 04/28/19 04/28/19 History Clopidogrel [Plavix] 75 mg PO DAILY 04/28/19 04/28/19 History Furosemide [Lasix] 80 mg PO BID@0900,1600 04/28/19 04/28/19 History Isoniazid 300 mg PO DAILY 04/28/19 04/28/19 History Metoprolol Tartrate [Lopressor] 12.5 mg PO BID 04/28/19 04/28/19 History Nitroglycerin Sl Tabs [Nitrostat] 0.4 mg SUBLINGUAL Q5M PRN 04/28/19 04/28/19 History Pyridoxine HCl (Vitamin B6) 100 mg PO DAILY 04/28/19 04/28/19 History [Vitamin B-6] Tamsulosin HCl [Flomax] 0.4 mg PO DAILY 04/28/19 04/28/19 History amLODIPine [Norvasc] 10 mg PO DAILY 04/28/19 04/28/19 History Allergies Allergy/AdvReac Type Severity Reaction Status Date / Time No Known Allergies Allergy Verified 04/28/19 11:30 Physical Exam Vitals: Vital Signs Temp Pulse Pulse Resp BP BP Pulse Ox 04/29/19 16:00 99.1 F 91 25 H 114/67 04/29/19 15:00 79 18 127/65 100 04/29/19 14:00 101 H 21 126/69 93 L 04/29/19 13:00 87 19 111/62 99 04/29/19 12:00 98.7 F 92 19 115/72 100 04/29/19 11:47 98.7 F 99 17 115/79 04/29/19 11:00 121 H 22 116/79 99 04/29/19 10:00 105 H 21 116/91 99 04/29/19 09:00 108 H 24 94 L 04/29/19 08:00 98.5 F 100 19 122/80 100 04/29/19 07:00 103 H 15 99/78 98 04/29/19 06:00 100 12 113/68 97 04/29/19 05:00 125 H 22 105/73 96 04/29/19 04:00 99.3 F 99 21 130/73 96 04/29/19 03:00 103 H 22 122/85 97 04/29/19 02:00 93 25 H 125/64 97 04/29/19 01:00 99 20 115/77 97 04/29/19 00:00 99.5 F 91 23 106/63 96 04/28/19 23:00 92 24 127/62 95 04/28/19 22:30 76 22 105/69 96 04/28/19 22:00 79 24 121/70 96 04/28/19 21:30 82 19 118/76 97 04/28/19 21:15 93 30 H 118/76 98 04/28/19 21:00 104 H 28 H 141/78 98 04/28/19 20:45 105 H 13 125/67 99 04/28/19 20:30 108 H 20 125/69 98 04/28/19 20:15 87 11 L 122/73 98 04/28/19 20:10 99 04/28/19 20:00 99.1 F 99 26 H 122/59 99 04/28/19 19:45 103 H 19 127/67 96 04/28/19 19:33 98.8 F 04/28/19 19:03 113 H 17 123/81 98 04/28/19 18:38 117 H 18 04/28/19 17:40 115 H 128/70 98 04/28/19 17:33 98.8 F 121 H 19 121/72 95 Intake and Output 04/29/19 04/29/19 04/29/19 06:59 14:59 22:59 Intake Total 500 410 Output Total 1999 Balance 500 -1590 Intake: IV 260 160 Piperacillin-Tazobactam 3 100 .375 gm In Sodium Chloride 0.9% 100 ml @ 25 mls/hr IVPB Q12H [facility] Rx# :[id number] Sodium Chloride 0.9% 1, 160 160 000 ml @ 20 mls/hr IV . Q24H [facility] Rx#:[id number] Intake, IV Titration 250 Amount Vancomycin 1,500 mg In 250 Sodium Chloride 0.9% 250 ml @ 125 mls/hr IVPB ONCE ONE Rx#:[id number] Oral 240 Output: Urine 0 Hemodialysis 1999 GENERAL DESCRIPTION: Middle-aged male lying in bed, no distress. No tachypnea or accessory muscle of respiration use. HEENT: Shows Pallor , no scleral icterus. Oral mucous membrane is dry. No pharyngeal erythema or thrush NECK: Trachea central, no thyromegaly. LUNGS: Unlabored breathing. Decreased breath sounds at the bases. No wheeze or crackle. HEART: S1, S2, regular rate and rhythm. No loud murmur ABDOMEN: Soft, no tenderness , guarding or rigidity, no organomegaly EXTREMITIES: No edema of feet. SKIN: No rash, no masses palpable. NEUROLOGICAL: The patient is awake, alert, oriented x3, mood and affect normal. Results CBC & Chem 7: 04/30/19 04:45 04/30/19 04:45 Labs: Abnormal Lab Results - Last 24 Hours (Table) 04/28/19 04/28/19 04/28/19 Range/Units 12:17 17:13 19:36 RBC (4.30-5.90) m/uL Hgb (13.0-17.5) gm/dL Hct (39.0-53.0) % RDW (11.5-15.5) % Monocytes # (Manual) (0-1.0) k/uL ABG pH 7.50 H (7.35-7.45) ABG pO2 55 L* (83-108) mmHg ABG HCO3 34 H (21-25) mmol/L ABG Total CO2 35 H (19-24) mmol/L ABG O2 Saturation 90.4 L (94-97) % Sodium (137-145) mmol/L Chloride (98-107) mmol/L BUN (9-20) mg/dL Creatinine (0.66-1.25) mg/dL Glucose (74-99) mg/dL POC Glucose (mg/dL) 170 H (75-99) mg/dL Calcium (8.4-10.2) mg/dL Total Bilirubin (0.2-1.3) mg/dL AST (17-59) U/L Total Protein (6.3-8.2) g/dL Albumin (3.5-5.0) g/dL Procalcitonin 2.94 H (0.02-0.09) ng/mL 04/29/19 04/29/19 04/29/19 Range/Units 05:04 05:04 06:41 RBC 3.92 L (4.30-5.90) m/uL Hgb 10.9 L (13.0-17.5) gm/dL Hct 33.9 L (39.0-53.0) % RDW 18.4 H (11.5-15.5) % Monocytes # (Manual) 1.27 H (0-1.0) k/uL ABG pH (7.35-7.45) ABG pO2 (83-108) mmHg ABG HCO3 (21-25) mmol/L ABG Total CO2 (19-24) mmol/L ABG O2 Saturation (94-97) % Sodium 133 L 135 L (137-145) mmol/L Chloride 95 L 94 L (98-107) mmol/L BUN 43 H 44 H (9-20) mg/dL Creatinine 5.06 H 5.20 H (0.66-1.25) mg/dL Glucose 101 H (74-99) mg/dL POC Glucose (mg/dL) (75-99) mg/dL Calcium 7.8 L 7.8 L (8.4-10.2) mg/dL Total Bilirubin 1.7 H (0.2-1.3) mg/dL AST 105 H (17-59) U/L Total Protein 5.8 L 4.9 L (6.3-8.2) g/dL Albumin 3.0 L 2.7 L (3.5-5.0) g/dL Procalcitonin (0.02-0.09) ng/mL Microbiology - Last 24 Hours (Table) 04/28/19 12:17 Blood Culture - Preliminary Blood No Growth after 24 hours 04/28/19 21:11 Gram Stain - Preliminary Sputum Assessment and Plan Assessment: 1-patient admitted to hospital with increasing shortness of breath in this patient found to have large pericardial effusion questionably related to possible viral etiology or noninfectious causes as the patient currently does not look toxic do not have high-grade fever or elevated white count and CT did not show any evidence of large consolidation to be suspicious for pneumonia 2-patient with latent TB with no evidence of any consolidation or cavitation on the chest x-ray on the CT of the chest Plan: 1-await possible pericardial window and drainage of this pericardial fluid at which time fluid should be sent for culture both aerobic and anaerobic to rule out any bacterial infection though clinical suspicious is low 2-continue with empiric vancomycin however switch Zosyn to cefepime while waiting for condition to stabilize and cultures to finalize 3-INH 300 mg daily and pyrodoxin 50 mg daily we will follow on clinical condition and culture to further adjust medication if needed Thank you for this consultation will follow this patient along with you Time with Patient: Greater than 30
[2019-04-30] MEDS: FUROSEMIDE 10 MG/ML 10 ML VIAL IV SCH ×2 (08:12→20:01)
[2019-04-30] MEDS: TAMSULOSIN 0.4 MG CAP.ER.24H PO SCH ×2 (08:12→08:13)
[2019-04-30] MEDS: COLCHICINE 0.6 MG EACH PO SCH (08:13)
[2019-04-30] MEDS: INDOMETHACIN 25 MG CAP PO SCH ×3 (08:13→20:02)
[2019-04-30] MEDS: EZETIMIBE 10 MG TAB PO SCH (08:13)
[2019-04-30] MEDS: APIXABAN 2.5 MG TABLET PO SCH ×2 (08:13→20:01)
[2019-04-30] MEDS: CLOPIDOGREL 75 MG TAB PO SCH (08:13)
[2019-04-30] MEDS: METOPROLOL TARTRATE 25 MG TAB PO SCH ×2 (08:13→20:01)
[2019-04-30] MEDS: PYRIDOXINE 50 MG TAB PO SCH (08:14)
[2019-04-30] MEDS: amLODIPine 5 MG TAB PO SCH (08:14)
[2019-04-30] MEDS: ISONIAZID 100 MG TABLET PO SCH (08:17)
--- NOTE | 2019-04-30 08:50 | XR ---
EXAMINATION TYPE: XR chest 1V portable DATE OF EXAM: 04/30/2019 COMPARISON: 04/29/2019 HISTORY: Shortness of breath TECHNIQUE: Single frontal view of the chest is obtained. FINDINGS: Marked cardiomegaly with bilateral infiltrate and pleural effusion. Pneumothorax. Arthropa thy shoulders. IMPRESSION: 1. Increasing bilateral consolidation pleural effusion correlate for pneumonia. Otherwise consider CH F. 2. Marked cardiomegaly correlate for cardiomyopathy or pericardial effusion.
--- NOTE | 2019-04-30 09:01 | ECHOF ---
Referral Reason:Pericardial effusion MEASUREMENTS -------- HEIGHT: 167.6 cm WEIGHT: 82.5 kg BP: 120/63 RVIDd: 2.5 cm (< 3.3) IVSd: 1.3 cm (0.6 - 1.1) LVIDd: 4.6 cm (3.9 - 5.3) LVPWd: 1.4 cm (0.6 - 1.1) IVSs: 1.8 cm LVIDs: 3.0 cm LVPWs: 1.5 cm LAESV Index (A-L): 29.25 ml/m Ao Diam: 3.3 cm (2.0 - 3.7) AV Cusp: 1.6 cm (1.5 - 2.6) LA Diam: 3.7 cm (2.7 - 3.8) RAP: 5.00 mmHg RVSP: 38.48 mmHg FINDINGS -------- Atrial fibrillation with RVR. This was a technically adequate study. There is mild concentric left ventricular hypertrophy. Overall left ventricular systolic function i s normal with, an EF between 55 - 60 %. Left ventricular fillimg pressure cannot be estimated due t o Atrial fibrillation. The right ventricle is normal in size. LA is midly dilated 29-33ml/m2. The right atrial size is normal. Interatrial and interventricular septum intact. The aortic valve is trileaflet and appears structurally normal. There is no evidence of aortic regu rgitation. There is no evidence of aortic stenosis. There is trace mitral regurgitation. Mild tricuspid regurgitation present. There is mild pulmonary hypertension. The right ventricular systolic pressure, as measured by Doppler, is 38.48mmHg. There is no pulmonic regurgitation present. The aortic root size is normal. IVC Not well visulized. There is a moderate, generalized pericardial effusion present. There is no evidence of cardiac tamp onade. CONCLUSIONS -------- 1. Atrial fibrillation with RVR. 2. This was a technically adequate study. 3. There is mild concentric left ventricular hypertrophy. 4. Overall left ventricular systolic function is normal with, an EF between 55 - 60 %. 5. Left ventricular fillimg pressure cannot be estimated due to Atrial fibrillation. 6. The right ventricle is normal in size. 7. LA is midly dilated 29-33ml/m2. 8. The right atrial size is normal. 9. Interatrial and interventricular septum intact. 10. The aortic valve is trileaflet and appears structurally normal. 11. There is no evidence of aortic regurgitation. 12. There is no evidence of aortic stenosis. 13. There is trace mitral regurgitation. 14. Mild tricuspid regurgitation present. 15. There is mild pulmonary hypertension. 16. The right ventricular systolic pressure, as measured by Doppler, is 38.48mmHg. 17. There is no pulmonic regurgitation present. 18. The aortic root size is normal. 19. IVC Not well visulized. 20. There is a moderate, generalized pericardial effusion present. 21. There is no evidence of cardiac tamponade. SENIOR PROJECT ENGINEER: Amanda Dunham RDCS
[2019-04-30] MEDS: CEFEPIME 0.5 GM in SODIUM CHLORIDE 0.9% 50 ML IVPB SCH (09:32)
[2019-04-30] MEDS: DORZOLAMIDE HCL 2% DROPS 10 ML BTL LEFT EYE SCH (09:32)
[2019-04-30] MEDS: BRIMONIDINE TARTRATE 0.2% DROPS 5 ML BTL LEFT EYE SCH (09:32)
--- NOTE | 2019-04-30 10:52 | PN ---
PROGRESS NOTE DATE OF SERVICE: 04/30/2019 This is a 63-year-old male who was admitted on 04/28. He came to the emergency department with complaints of difficulty breathing. He developed and apparently developed a couple days prior to admission. He also had a nonproductive cough, but dry cough, nonproductive dry cough. No chest pain or pressure. No palpitations. He was recently diagnosed with atrial fibrillation. He was placed on Eliquis. I was called by the ER doctor. He was also found to have a pericardial effusion, which according to the quality assurance supervisor, Dr. flores on was not significant. Anyway, blood gases showed a PO2 of 55, pCO2 of 43 and a pH is 7.50. The patient does have evidence of fluid overload on chest x-ray, especially before his dialysis treatment. I suspect his increasing shortness of breath more likely relates either of atrial fibrillation or fluid overload from his renal failure and not pneumonia. Anyway, clinically, he is doing better. He feels better. He is currently down to 2 L by nasal cannula. His IV is 0.9 at 20. He really does not need that and I have asked the nurses to have all that. He does have atrial fibrillation. Denies any cough. No fever or chills. Not producing any phlegm. PHYSICAL EXAMINATION: VITAL SIGNS: Current vital signs are reviewed temperature 97.7 heart rate respiratory rate 15, blood pressure 110/75 mean 86, 2 L saturation 96%. Appears in no acute distress HEENT examination is grossly unremarkable. Mucous membranes are moist. No oral lesions. NECK: Supple. Full range of motion. No adenopathy, thyromegaly or neck vein distention. CARDIOVASCULAR examination reveals a regular rhythm rate. Appears to be in atrial fibrillation. Heart rate in mid 80s. LUNGS: Some bibasilar crackles. No wheezes or rhonchi. ABDOMEN: Soft. EXTREMITIES are intact. Minimal edema. SKIN: Without rash. NEUROLOGIC: Examination is nonfocal. Microbiologic studies are negative. LABS: Reviewed. White count 8, hemoglobin 11.0, hematocrit 35.7, platelet count 150,000. Sodium 135, potassium 4.4, chloride 99, CO2 27 anion gap, anion gap is 9. BUN and creatinine were 38 and 4.5. The urine is evaluated. His chest x-ray from today shows changes that are consistent with some my opinion fluid overload. There is significant cardiomegaly. Medications are reviewed. He is on appropriate medications and also is on cefepime and vancomycin, although I again I do not believe he has an infection. ASSESSMENT: 1. Shortness of breath, I believe likely related to either mild fluid overload as well as possible atrial fibrillation. I doubt pneumonia at this time. 2. History of recently diagnosed atrial fibrillation, currently on Eliquis. 3. Possible underlying chronic obstructive pulmonary disease. 4. End-stage renal disease, currently on a 3-time a week hemodialysis. 5. History of coronary artery disease with previous stent placement. PLAN: The patient is doing better today. We are going to pivel his IV. He does not need any additional fluid. He could be transferred out to the general medical floor with telemetry. I am going to ask Nephrology to dialyze him a bit differently to remove a bit more fluid than they are currently removing. Therefore, the echo according to the Cardiology shows no significant pericardial effusion and certainly no hemodynamic consequence of pericardial effusion. Will continue to follow. He will need to be seen in the office with outpatient pulmonary function testing. MMODL / IJN: [id number] /
--- NOTE | 2019-04-30 11:28 | PN ---
PROGRESS NOTE Mr. Toscano is a 63-year-old male with known history of coronary artery disease status post multivessel stenting, history of end-stage renal disease, on hemodialysis, recent atrial fibrillation, anticoagulated who presented with preserved progressive dyspnea and cough. He had moderate pericardial effusion with no evidence of tamponade. He underwent dialysis yesterday. He is feeling better this morning. He is denying any chest pain. He continued to be in atrial fibrillation with predominantly controlled ventricular rhythm. He denies any dizziness or palpitation. He denies any nausea. He continues to be on Eliquis 2.5 mg twice a day, amlodipine 5 mg daily, Plavix 75 mg daily, Zetia 10 mg daily, Lasix 80 mg twice a day, colchicine 0.6 mg daily, metoprolol tartrate 25 mg twice a day. PHYSICAL EXAMINATION: Blood pressure 110/70 with the heart rate in the 80s. LUNGS: With mild decreased breath sounds at the bases. HEART: Irregular, irregular. S1, S2. No S3. No rub appreciated. ABDOMEN: Soft, nontender. EXTREMITIES: No edema. LAB DATA: Lab data revealed BUN and creatinine 38 and 4.5, potassium 4.4, hemoglobin of 11. Chest x-ray performed today revealed consolidation with pleural effusion with cardiomegaly noted. His echocardiogram revealed a preserved systolic function with moderate pericardial effusion and no evidence of tamponade. IMPRESSION: 1. Symptoms of progressive dyspnea and cough with findings consistent with fluid overload, probably related to his chronic kidney disease and dialysis. 2. Pericardial effusion with no evidence of tamponade moderate by echocardiography. 3. History of coronary artery disease, status post multivessel stenting, stable. 4. Atrial fibrillation anticoagulated with controlled ventricular response. 5. Hypertension. 6. Hyperlipidemia. RECOMMENDATION: From the cardiac standpoint, we will continue present therapy. Hopefully Nephrology can remove more fluid during dialysis and will follow the pericardial effusion by repeat echocardiogram in 48 hours. Depending on his progress decision can be made regarding the possibility of trying to perform cardioversion to restore sinus mechanism. We will follow his heart rate and depending on his heart rate, the dose of his beta keena can be further adjusted. MMODL / IJN: [id number] /
[2019-04-30] MEDS ORDERED: MIDODRINE 5 MG TAB PO PRN (12:11)
--- NOTE | 2019-04-30 12:50 | P.PN ---
Subjective Progress Note Date: 04/30/19 Principal diagnosis: Pericardial effusion, progressive dyspnea, history of paroxysmal atrial fibrillation on Eliquis for anticoagulation, coronary artery disease with previous multivessel stenting on Plavix, hypertension, hyperlipidemia, end-stage renal disease on hemodialysis Wednesdays and Fridays, ischemic cardiomyopathy, osteoarthritis, latent tuberculosis and BPH. The patient is resting in bed in the intensive care unit. He is in no acute distress. Currently he denies any complaints of pain although reports that he does have some shortness of breath with minimal activity. His oxygen saturations are 97% on 2 L nasal cannula. Bedside telemetry showing atrial fibrillation heart rate 97. He remains afebrile. He underwent a hemodialysis treatment yesterday with 2000 mL of fluid removed. Objective - Vital Signs Vital signs: Vital Signs Temp 97.7 F 04/30/19 08:00 Pulse 85 04/30/19 08:00 Resp 15 04/30/19 08:00 BP 110/75 04/30/19 08:00 Pulse Ox 96 04/30/19 08:00 Intake & Output 04/29/19 04/30/19 04/30/19 18:59 06:59 18:59 Intake Total 410 640 Output Total 2000 30 Balance -1590 610 Weight 84.8 kg Intake: IV 160 420 Piperacillin-Tazobactam 3 100 .375 gm In Sodium Chloride 0.9% 100 ml @ 25 mls/hr IVPB Q12H FENG Rx# :[id number] Sodium Chloride 0.9% 1, 160 320 000 ml @ 20 mls/hr IV . Q24H FENG Rx#:[id number] Intake, IV Titration 250 Amount Vancomycin 1,500 mg In 250 Sodium Chloride 0.9% 250 ml @ 125 mls/hr IVPB ONCE ONE Rx#:[id number] Oral 220 Output: Urine 0 30 Hemodialysis 2000 Other: # Bowel Movements 1 - Constitutional General appearance: Present: cooperative, no acute distress, obese - Neck Details: Left carotid bruit present. - Respiratory Details: Lung sounds essentially clear to his bilateral upper lobes, diminished to his bilateral bases with few scattered faint crackles. Respirations are symmetrical and nonlabored. Oxygen saturation 97% on 2 L nasal cannula. - Cardiovascular Details: Regular rhythm and rate. S1 and S2 present, negative for S3 or gallop. Systolic murmur 2/6 present and heard best to his right sternal border. +1 edema to his bilateral lower extremities. Bedside telemetry showing atrial fibrillation heart rate 97. - Gastrointestinal Gastrointestinal Comment(s): Abdomen soft, nontender and nondistended. Active bowel sounds present all 4 a bdominal quadrants. No guarding or rigidity. No organomegaly appreciated. - Genitourinary Genitourinary Comment(s): Hemodialysis Sunday and Fridays. AV fistula to his left arm with good thrill and bruit. - Integumentary Integumentary Comment(s): Skin is warm and dry. No clubbing or cyanosis is present. No rash or abnormal pigmentation present. - Neurologic Neurologic Comment(s): No focal deficits. Neurologic: Present: CNII-XII intact - Musculoskeletal Musculoskeletal: Present: gait normal, generalized weakness, strength equal bilaterally - Psychiatric Psychiatric: Present: A&O x's 3, appropriate affect, intact judgment & insight - Allied health notes Allied health notes reviewed: nursing - Labs CBC & Chem 7: 04/30/19 04:45 04/30/19 04:45 Labs: Abnormal Lab Results - Last 24 Hours (Table) 04/29/19 04/30/19 04/30/19 Range/Units 20:30 04:45 04:45 RBC 3.90 L (4.30-5.90) m/uL Hgb 11.0 L (13.0-17.5) gm/dL Hct 35.7 L (39.0-53.0) % MCHC 30.7 L (31.0-37.0) g/dL RDW 18.3 H (11.5-15.5) % Sodium 135 L (137-145) mmol/L BUN 38 H (9-20) mg/dL Creatinine 4.50 H (0.66-1.25) mg/dL Glucose 113 H (74-99) mg/dL Calcium 8.3 L (8.4-10.2) mg/dL Total Protein 5.1 L (6.3-8.2) g/dL Albumin 2.7 L (3.5-5.0) g/dL Urine Protein 3+ H (Negative) Urine Blood Moderate H (Negative) Ur Leukocyte Esterase Small H (Negative) Urine RBC 90 H (0-5) /hpf Urine WBC 32 H (0-5) /hpf Microbiology - Last 24 Hours (Table) 04/29/19 20:30 Urine Culture - Preliminary Urine,Voided 04/28/19 12:17 Blood Culture - Preliminary Blood No Growth after 24 hours 04/28/19 21:11 Gram Stain - Preliminary Sputum - Imaging and Cardiology Chest x-ray: report reviewed, image reviewed Assessment and Plan Assessment: 1. Pericardial effusion with no clear evidence of tamponade, he is hemodynamically stable on hemodialysis 2. Progressive dyspnea 3. Paroxysmal atrial fibrillation, on anticoagulation Eliquis 4. History of coronary artery disease, status post multivessel stenting, on Plavix 5. History of hypertension 6. End-stage renal disease on hemodialysis Sunday and Fridays 7. Hyperlipidemia 8. Ischemic cardiomyopathy 9. BPH 10. Osteoarthritis 11. Latent tuberculosis Plan: 1. Continue to optimize with medical management. 2. We will order an incentive spirometry and encourage use every hour while awake. 3. Wean oxygen as tolerated. 4. A. fib management per Dr. Dunn's recommendations. 5. No surgical intervention is warranted at this time. The patient remains h emodynamically stable and is demonstrating no symptoms of cardiac tamponade. 6. Continue colchicine. 7. Hemodialysis management per nephrology's recommendations. 8. GI and DVT prophylaxis. 9. We will follow the patient on an as-needed basis. Time with Patient: Greater than 30
[2019-04-30] MEDS: FLUTICASONE 50MCG/SPRAY NASAL 16GM EA NOSTRIL SCH ×2 (13:52→20:10)
--- NOTE | 2019-04-30 13:59 | P.PN ---
Subjective Progress Note Date: 04/30/19 This is a 63-year-old gentleman patient of Dr. Bains. 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 Patient had been ill for the past 3 days, seen in the clinic by TAG MARKER, and was given a mucolytic. Subsequent to that patient has increasing shortness of breath, fever yesterday, productive cough mainly white sputum, he has temperature at home, approximately 100, he had been admitted off and on for the same problem since 04/01/2019, when he presented initially with chest pain. He was seen by Dr. Nuñez during these episodes, and no blood cultures were isolated from the initial admission April 02, except during the second admission with staph epidermidis in the urine culture, he also had an abdominal ultrasound 03/15/2019 for his chronic cholecystitis was noted, was seen by Dr. Fisher, has elevated liver function tests at that time with no symptoms of the gallbladder, has no acute surgical intervention for the gallbladder that time, patient was seen by GI Dr. Fan for possible MRCP,, none was planned at that time as they taught the elevated liver function tests could be biochemically related to transaminitis from CHF A. fib with RVR. Per patient's recollection, patient gets better after not antibiotic is completed, 2 days thereafter, patient doesn't feel well, has fever, cough shortness of breath, no abdominal pain, no diarrhea, he has soft stools his main complaint is cough and shortness of breath. No dysuria and hematuria In the emergency room, he was evaluated for shortness of breath and cough and fever, chest x-ray shows loculated little effusion, left costophrenic angle, T- max ER 1991, blood pressure 144/91 95% on room air, previous CAT scans were reviewed from 04/03/2019 shows atelectasis bilateral, without any pleural effusion, indeterminate hepatic and renal lesions as discussed performed without contrast studies. CT high resolution to be done, consult with Dr. Nuñez infectious disease, consult with nephrology for maintenance hemodialysis, but cultures obtained, IV Zosyn IV vancomycin patient is high risk for sepsis secondary to his HD program 04/28, 3:55 PM, i was notified regarding of red critical level for CAT scan, showing a large pericardial effusion, 2.1 cm in depth, consult urgent to cardiology Dr. Dunn, consultation stat to thoracic surgeon Dr. Mackay, hold eliquis Plavix, until recommendations from both services cardiology and cardiothoracic surgeon. IV Lasix, ICU admission, high risk for tamponade discussed with ER physician Dr. Oh, consult with general farm hand Dr. Bejarano 04/29: Patient remains in the intensive care unit as an overflow for selective care. He has been A. fib, rate controlled. He has been resumed on eliquis and Plavix by cardiology. Dr. Dunn also increase his Lopressor to 25 mg twice daily. Patient has been seen by cardiothoracic surgery and reviewed most recent echo at the beginning of this month and pericardial effusion is actually smaller at this point. Patient also has pleural effusions with no plan for any intervention at this time. Patient is also followed by Dr. Hernandez. We will start Indocin. He has ordered for a repeat echocardiogram. Dr. Nuñez is also on consult. 04/30: The patient remains in intensive care unit waiting for bed on cardiac stepdown unit. He has been afebrile, heart rate 85, blood pressure 110/75, pulse ox 96% on 2 L nasal cannula. WBC 8.0, hemoglobin 11.0, platelet count 150. Sodium 135, potassium 4.4, chloride 99, CO2 27, BUN 38 creatinine 4.5, albumin 2.7. Blood cultures no growth after 24 hours. Urine culture and sputum culture in progress. Repeat chest x-ray revealed increasing bilateral consolidation pleural effusion correlate for pneumonia. Otherwise consider CHF. Marked cardiomegaly Eliazar for cardiomyopathy or pericardial effusion. The patient was seen by Dr. Nuñez with recommendations for continuing vancomycin and switch Zosyn to cefepime. Cardiothoracic surgery does not plan for any surgical intervention. Plan is for medical treatment. Patient underwent hemodialysis yesterday and is undergoing hemodialysis again today. The patient states that his shortness of breath is better. He states he does have some postnasal drainage for which Flonase will be added. He denies any heartburn or reflux. Objective - Vital Signs Vital signs: Vital Signs Temp 97.7 F 04/30/19 08:00 Pulse 85 04/30/19 08:00 Resp 15 04/30/19 08:00 BP 110/75 04/30/19 08:00 Pulse Ox 96 04/30/19 08:00 Intake & Output 04/29/19 04/30/19 04/30/19 18:59 06:59 18:59 Intake Total 410 640 Output Total 1999 Balance -1590 610 Weight 84.8 kg Intake: IV 160 420 Piperacillin-Tazobactam 3 100 .375 gm In Sodium Chloride 0.9% 100 ml @ 25 mls/hr IVPB Q12H [facility] Rx# :[id number] Sodium Chloride 0.9% 1, 160 320 000 ml @ 20 mls/hr IV . Q24H [facility] Rx#:[id number] Intake, IV Titration 250 Amount Vancomycin 1,500 mg In 250 Sodium Chloride 0.9% 250 ml @ 125 mls/hr IVPB ONCE ONE Rx#:[id number] Oral 220 Output: Urine 0 30 Hemodialysis 1999 Other: # Bowel Movements 1 - Exam Review of Systems Constitutional: Reports anorexia, Reports chills, Reports fever, Reports lethargy, Reports malaise, Denies chronic headaches, Denies chronic pain, Denies daytime sleepiness, Denies fatigue, Denies night sweats, Denies poor appetite, Denies sweats, Denies weakness, Denies weight gain, Denies weight loss Ears, nose, mouth and throat: Denies ant. neck pain, Denies bleeding gums, Denies dental pain, Denies dysphagia, Denies epistaxis, Denies headache, Denies hoarseness, Denies mouth pain, Denies nasal congestion, Denies nasal discharge, Denies neck fullness/pressure, Denies neck lump, Denies nose pain, Denies odynophagia, reports post-nasal drip, Denies sinus pain, Denies sinus pressure, Denies swelling in mouth, Denies swelling in throat, Denies sore throat, Denies vertigo, Denies voice changes Cardiovascular: Denies chest pain, denies chest pressure Respiratory: Reports shortness of breath Gastrointestinal: Denies nausea, denies vomiting, denies abdominal pain Musculoskeletal: Denies myalgias Integumentary: Denies rash Neurological: Denies aphasia, Denies ataxia, Denies balance difficulties, Denies burning pain, Denies change in mentation, Denies change in smell/taste, Denies change in speech, Denies confusion, Denies convulsions, Denies double vision, Denies gait dysfunction, Denies head injury, Denies headaches, Denies hearing difficulties, Denies lack of coordination, Denies loss of vision, Denies memory loss, Denies migraines, Denies motor disturbance, Denies numbness, Denies paralysis, Denies paresthesias, Denies seizures, Denies sensory deficit, Denies spasticity, Denies syncope, Denies tic, Denies tingling, Denies transient paralysis, Denies tremors, Denies vertigo, Denies weakness, Denies visual changes Hematologic/Lymphatic: Reports easy bleeding Allergic/Immunologic: Denies allergic rhinitis, Denies anaphylaxis, Denies angioedema, Denies gluten intolerance, Denies persistent infections, Denies seasonal allergies, Denies urticaria, Denies wheezing Physical exam: - Constitutional General appearance: cooperative, no acute distress, sitting up in ICU bed - EENT Eyes: anicteric sclerae, EOMI, PERRLA, dentition normal, normal appearance ENT: hearing grossly normal, NA/AT, normal oropharynx - Neck Neck: normal ROM - Respiratory Respiratory: bilateral: CTA, negative: diminished, dullness, rales - Cardiovascular Rhythm: regular Heart sounds: normal: S1, S2 Abnormal Heart Sounds: no systolic murmur, no diastolic murmur, no rub, no S3 Gallop, no S4 Gallop, no click, no other - Gastrointestinal General gastrointestinal: normal bowel sounds, soft - Integumentary Integumentary: decreased turgor, normal - Neurologic Neurologic: CNII-XII intact - Musculoskeletal Musculoskeletal: strength equal bilaterally - Psychiatric Psychiatric: A&O x's 3, appropriate affect, intact judgment & insight - Labs CBC & Chem 7: 04/30/19 04:45 04/30/19 04:45 Labs: Abnormal Lab Results - Last 24 Hours (Table) 04/29/19 04/30/19 04/30/19 Range/Units 20:30 04:45 04:45 RBC 3.90 L (4.30-5.90) m/uL Hgb 11.0 L (13.0-17.5) gm/dL Hct 35.7 L (39.0-53.0) % MCHC 30.7 L (31.0-37.0) g/dL RDW 18.3 H (11.5-15.5) % Sodium 135 L (137-145) mmol/L BUN 38 H (9-20) mg/dL Creatinine 4.50 H (0.66-1.25) mg/dL Glucose 113 H (74-99) mg/dL Calcium 8.3 L (8.4-10.2) mg/dL Total Protein 5.1 L (6.3-8.2) g/dL Albumin 2.7 L (3.5-5.0) g/dL Urine Protein 3+ H (Negative) Urine Blood Moderate H (Negative) Ur Leukocyte Esterase Small H (Negative) Urine RBC 90 H (0-5) /hpf Urine WBC 32 H (0-5) /hpf Microbiology - Last 24 Hours (Table) 04/29/19 20:30 Urine Culture - Preliminary Urine,Voided 04/28/19 12:17 Blood Culture - Preliminary Blood No Growth after 24 hours 04/28/19 21:11 Gram Stain - Preliminary Sputum Assessment and Plan Plan: 1. Recurrent fever with pneumonitis, atypical pneumonia with loculated fluid, pleural effusions on chest x-ray findings possible lung abscess left lower, patient will be admitted with consultation to infectious disease Dr. Nuñez., IV cefepime and IV vancomycin, cannot rule out facility acquired pneumonia, showing a loculated left costal phrenic angle pleural effusion, blood cultures have been sent, will try to obtain sputum cultures, and CT of the chest high resolution as above. Lactic acid is normal, sputum cultures if able. Patient is undergoing a more frequent hemodialysis treatments. 2. Large pericardial effusion, colchicine 0.6 mg, aspirin, consults with car diothoracic surgery, cardiology and intensive is appreciated. No plan for surgical intervention. 3. Chronic atrial fibrillation with RVR. Cardiology consult appreciated. Continue metoprolol 25 by mouth twice a day. Eliquis 2.5 mg twice a day 4. Chronic cholecystitis. Was seen by Dr. Devine in the past, no surgical plans, transaminitis has resolved no current symptoms. 5. End-stage renal failure on dialysis Sunday with graft in left arm. Nephrology consult Continue with dialysis as ordered by nephrology. 6. Generalized weakness. Continue hydration. 7. Latent tuberculosis. Continue isoniazid. To complete program as designated for six-month treatment, patient most likely has 2 months to go 40s 8. Hypertension. Continue metoprolol 25 mg twice daily. Norvasc 5 mg daily Lasix 80 mg IV twice a day 9. Hyperlipidemia. hold Lipitor 40 mg by mouth daily 10. Coronary artery disease with multiple vessel stenting. Continue Lipitor 11. Ischemic cardiomyopathy. Continue metoprolol 12. Osteoarthritis. Continue baclofen 5 mg by mouth twice a day, continue Kenney 5/325 one tablet every 6 hours as needed for pain 13. BPH. Continue Flomax 0.4 mg daily 14. Difficulty sleeping. Melatonin 6 mg by mouth at bedtime 15. GI prophylaxis. Protonix 40 mg IV daily 16. DVT prophylaxis. Eliquis Discharge plan: Home Impression and plan of care have been directed as dictated by the signing physician. Anita Amaya nurse practitioner acting as scribe for signing physician.
[2019-04-30] MEDS: SODIUM CHLORIDE 0.9% 1,000 ML IV SCH (15:57)
--- NOTE | 2019-04-30 17:40 | PN ---
PROGRESS NOTE Patient was seen this morning. He is still short of breath, although better than 2 days ago. He has had dialysis in a row and he is scheduled for hemodialysis again today. We are going to try for about 3 L today. The patient has had issues with hypotension. We will give him a dose of midodrine senior care through treatment to help with the ultrafiltration. On examination this morning when patient was seen, blood pressure was 120/69, heart rate of 78 per minute. Patient was afebrile. EXAMINATION OF THE HEART: S1 and S2. EXAMINATION OF LUNGS: Decreased breath sounds at bases. ABDOMEN: Soft, non-tender. Examination of lower extremities shows trace edema bilaterally. CRIB TENDER exam is grossly intact. Labs show hemoglobin 11.0, sodium 135, potassium 4.4, serum creatinine 4.5 mg/dL. ASSESSMENT: 1. End-stage renal disease, on hemodialysis on a Sunday, Sunday, Sunday schedule, currently getting daily dialysis for fluid overload and large pericardial effusion. 2. Volume overload. We will continue to dialyze patient on a daily basis with UF about 2 to 3 liters each treatment. Unfortunately he is not able to tolerate more than 3.5 to 4 liters of ultrafiltration. We will continue to use midodrine to help with the UF. 3. Large pericardial effusion. No evidence of tamponade. There is no evidence of bleeding. It is most likely related to the overall fluid overload. There has not been any evidence of uremia to cause uremic pericarditis. Patient has had good clearance as outpatient. 4. Hypertension. Blood pressure controlled, currently on the lower side. 5. Chronic kidney disease mineral bone disorder, maintained on PhosLo. 6. 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 7. Chronic atrial fibrillation with controlled ventricular response, maintained on Eliquis. PLAN: Hemodialysis today with UF 3 to 3.5 L and repeat dialysis in a.m. as well. Continue with the colchicine. MMODL / IJN: [id number] /
--- NOTE | 2019-05-01 05:34 | PN ---
PROGRESS NOTE DATE OF SERVICE: 04/30/2019. REASON FOR FOLLOWUP: 1. Pneumonia. 2. Latent TB. INTERVAL HISTORY: The patient is currently afebrile. Patient breathing has slightly improved. The patient did have a cough, which has been moderate in intensity and remains to be dry in nature. No chest pain. No nausea, no vomiting. No abdominal pain, no diarrhea. PHYSICAL EXAMINATION: On examination, blood pressure is 120/78 with a pulse of 70, temperature 98. He is 98% on 2 L nasal cannula. General description is middle-aged male lying in bed in no distress. RESPIRATORY SYSTEM: Unlabored breathing, decreased breath sounds in the bases. No wheeze or crackle. HEART: S1, S2. Regular rate and rhythm. ABDOMEN: Soft, no tenderness. EXTREMITIES: No edema of the feet. LABS: Hemoglobin is 11, white count of 8, BUN of 38, creatinine 4.50. Blood culture has been negative so far. Sputum currently pending. DIAGNOSTIC IMPRESSION AND PLAN: Patient admitted to hospital with difficulty breathing in a patient who did have evidence of pericardial effusion. Also had evidence of bilateral pleural effusion with question of complex atelectasis, source pneumonia. The patient is currently covered with vancomycin and cefepime, to continue while waiting for the culture to finalize and continue supportive care. MMODL / IJN: [id number] /
[2019-05-01 05:46] LABS: Anisocytosis Slight; Basophils % (A) 0 %; Eosinophils # (A) 0.1 k/uL (0-0.7); Eosinophils % (A) 2 %; HCT 35.3 % (39.0-53.0); HGB 10.7 gm/dL (13.0-17.5); Hypochromasia Marked; Lymphocytes # (A) 1.1 k/uL (1.0-4.8); Lymphocytes % (A) 14 %; MCH 27.8 pg (25.0-35.0); MCHC 30.2 g/dL (31.0-37.0); MCV 91.9 fL (80.0-100.0); Mean Platelet Volume 8.2; Monocytes # (A) 0.6 k/uL (0-1.0); Monocytes % (A) 7 %; Neutrophils # (A) 5.6 k/uL (1.3-7.7); Neutrophils % (A) 74 %; Platelet Count 156 k/uL (150-450); RBC 3.84 m/uL (4.30-5.90); RDW 18.1 % (11.5-15.5); WBC 7.5 k/uL (3.8-10.6)
[2019-05-01] MEDS: PANTOPRAZOLE 40 MG TABLET PO SCH ×2 (07:12→17:27)
[2019-05-01] MEDS: CALCIUM ACETATE 667 MG CAP PO SCH ×3 (07:12→17:27)
[2019-05-01] MEDS: CEFEPIME 0.5 GM in SODIUM CHLORIDE 0.9% 50 ML IVPB SCH (08:46)
[2019-05-01] MEDS: FUROSEMIDE 10 MG/ML 10 ML VIAL IV SCH (08:52)
[2019-05-01] MEDS: CLOPIDOGREL 75 MG TAB PO SCH (09:16)
[2019-05-01] MEDS: COLCHICINE 0.6 MG EACH PO SCH (09:17)
[2019-05-01] MEDS: ISONIAZID 100 MG TABLET PO SCH (09:17)
[2019-05-01] MEDS: APIXABAN 2.5 MG TABLET PO SCH ×2 (09:17→20:15)
[2019-05-01] MEDS: DORZOLAMIDE HCL 2% DROPS 10 ML BTL LEFT EYE SCH (09:19)
[2019-05-01] MEDS: EZETIMIBE 10 MG TAB PO SCH (09:20)
[2019-05-01] MEDS: FLUTICASONE 50MCG/SPRAY NASAL 16GM EA NOSTRIL SCH ×2 (09:20→20:15)
[2019-05-01] MEDS: BRIMONIDINE TARTRATE 0.2% DROPS 5 ML BTL LEFT EYE SCH (09:21)
[2019-05-01] MEDS: PYRIDOXINE 50 MG TAB PO SCH (09:21)
--- NOTE | 2019-05-01 09:29 | PN ---
PROGRESS NOTE DATE OF SERVICE: 05/01/2019 A 63-year-old male admitted back on April 28 from the emergency department with complaints of difficulty breathing. It was occurring a couple days prior to admission. He also had a nonproductive dry cough. No chest pain or pressure. Initially was diagnosed as having atrial fibrillation. This was recent. He was placed on Eliquis. The patient was also discovered to have a pericardial effusion, but according to the senior packaging engineer, this was insignificant based on the echocardiogram. Blood gases showed some hypoxemia and a mild metabolic alkalosis. We thought the shortness of breath could relate to the atrial fibrillation and/or fluid overload, especially on his non dialysis days. In addition, the patient does have a history of previous tobacco use and may have some underlying COPD. I did not feel like he had active pneumonia. Anyway, he is feeling better. He has been weaned down to 2 L nasal cannula. He is not receiving any IV fluids. He is a Sunday, Sunday, Sunday dialysis patient. The patient could be downgraded to a general medical floor with telemetry. Current vital signs are reviewed, temperature is 98.7, heart rate 86, respiratory rate 18, blood pressure 127/78 mean 94, 2 L saturation is 96%. Appears in no acute distress. No obvious respiratory difficulty, no conversational dyspnea. No audible wheezing. No use of accessory muscles. HEENT: Examination is grossly unremarkable. Mucous membranes are moist. NECK: Supple. Full range of motion. No adenopathy. Neck veins are flat. CARDIOVASCULAR: Examination reveals an irregular rhythm and rate. Heart rate about 86 beats per minute. At times it goes up to the low 100s. S1, S2 normal. No distinct murmur. LUNGS: Reveal occasional bibasilar crackles. No wheezes. No rhonchi. Breath sounds are improved. Breath sounds equal bilaterally. ABDOMEN: Soft. Bowel sounds are heard. No masses or tenderness. EXTREMITIES: Intact. No significant edema. SKIN: Without rash. NEUROLOGIC: Examination is brief but nonfocal. LABS: Reviewed. White count 7.5, hemoglobin 10.7, hematocrit 35.3, platelet count 156,000. His electrolyte profile is not yet back. No recent x-rays to report. His last chest x-ray from yesterday shows evidence of some mild fluid overload. Medications are reviewed. Microbiologic studies are negative. ASSESSMENT: 1. Shortness of breath, likely related to fluid overload secondary to the patient's renal failure and/or possible atrial fibrillation. In addition, there may be a component of chronic obstructive pulmonary disease from previous tobacco use. Doubt significant pneumonia at this time. 2. History of recently diagnosed atrial fibrillation, currently on Eliquis. 3. Possible underlying chronic obstructive pulmonary disease from previous tobacco use, to be further evaluated. 4. End-stage renal disease, currently on 3-time a week hemodialysis. 5. History of coronary artery disease with previous stent placement. PLAN: We did ask Nephrology to remove more fluid. Clinically, he is doing better. He is down to 2 L nasal cannula. We have ordered a pulmonary function test. Will see him in the office for followup. Additional recommendations and suggestions are forthcoming. The patient could be transferred out to the general medical floor with telemetry. MARLEY / CÉSAR: [id number] /
--- NOTE | 2019-05-01 10:05 | PN ---
PROGRESS NOTE Mr. Toscano is a 63-year-old male with a known history of coronary artery disease status post multivessel stenting, history of end-stage renal disease, who presented with symptoms of progressive dyspnea and cough. He was found to have evidence of pericardial effusion, although with no tamponade. He is undergoing dialysis with removal of more fluid. His cough is better, but he continues to be dyspneic. He denies any dizziness or palpitation. He denies any chest discomfort. He continued to be in atrial fibrillation with episode of rapid ventricular response. He has no evidence of ventricular ectopic activity. He continues to be at this time on Eliquis 2.5 mg twice a day, amlodipine 5 mg daily, Plavix 75 mg daily, Zetia 10 mg daily, furosemide 80 mg IV q.12 hours, indomethacin 25 mg 3 times a day, metoprolol tartrate 25 mg twice a day. PHYSICAL EXAMINATION: Blood pressure 132/60 with the heart rate in the 80s. LUNGS: With decreased breath sound bilaterally at the bases. HEART: Irregular, irregular. S1, S2. No S3. No rub. ABDOMEN: Soft, nontender. EXTREMITIES: No edema. LAB DATA: Lab data revealed a hemoglobin of 10.7. IMPRESSION: 1. Progressive symptoms of dyspnea and cough with combination of fluid overload, probable diastolic dysfunction. The patient has history of end-stage renal disease on hemodialysis with some fluid overload. There is no definite diagnosis of pneumonia. 2. Atrial fibrillation, anticoagulated. 3. Coronary artery disease with multiple stenting. 4. Hypertension. 5. Hyperlipidemia. RECOMMENDATION: From the cardiac standpoint, I will increase the dose of his beta keena to control ventricular response. We will continue on the attempt to remove more fluid. We will follow his symptoms. I will repeat the echocardiogram tomorrow to further evaluate the amount of effusion. Depending on his progress, further recommendation will be made. MMODL / IJN: [id number] /
[2019-05-01] MEDS: METOPROLOL TARTRATE 50 MG TAB PO SCH ×2 (11:44→20:15)
[2019-05-01] MEDS ORDERED: VANCOMYCIN 1,500 MG in SODIUM CHLORIDE 0.9% 250 ML IVPB ONE (12:00)
--- NOTE | 2019-05-01 14:32 | PN ---
PROGRESS NOTE DATE OF SERVICE: 05/01/2019 REASON FOR FOLLOWUP: Pneumonia. INTERVAL HISTORY: The patient is currently afebrile. Patient has been breathing more comfortably. The patient's cough has decreased in intensity and is dry in nature. No chest pain. No nausea, no vomiting. No abdominal pain and no diarrhea. PHYSICAL EXAMINATION: Blood pressure is 124/73 with a pulse of 96, temperature 98, he is 96% on room air. General description is a middle-aged male, up in the room in no distress. RESPIRATORY SYSTEM: Unlabored breathing with decreased intensity with no wheeze. HEART: S1, S2. Regular rate and rhythm. ABDOMEN: Soft, no tenderness. LABS: Hemoglobin is 10.7, white count of 7.5. BUN of 13, creatinine is 4.50. Sputum culture currently negative for resistant pathogen. DIAGNOSTIC IMPRESSION AND PLAN: Patient admitted to the hospital with difficulty breathing, which is likely multifactorial. Patient did have a component of pericardial effusion with a question of possible pneumonia. Sputum has been usual respiratory yesica. Blood culture has been negative. Currently on cefepime and vancomycin to continue and finish therapy with oral antibiotic on discharge. Continue supportive care. MMODL / IJN: [id number] /
--- NOTE | 2019-05-01 15:16 | P.PN ---
Subjective Progress Note Date: 05/01/19 This is a 63-year-old gentleman patient of Dr. Bains. 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 Patient had been ill for the past 3 days, seen in the clinic by CLIENT PROJECT COORDINATOR, and was given a mucolytic. Subsequent to that patient has increasing shortness of breath, fever yesterday, productive cough mainly white sputum, he has temperature at home, approximately 100, he had been admitted off and on for the same problem since 04/01/2019, when he presented initially with chest pain. He was seen by Dr. Nuñez during these episodes, and no blood cultures were isolated from the initial admission April 02, except during the second admission with staph epidermidis in the urine culture, he also had an abdominal ultrasound 03/15/2019 for his chronic cholecystitis was noted, was seen by Dr. Fisher, has elevated liver function tests at that time with no symptoms of the gallbladder, has no acute surgical intervention for the gallbladder that time, patient was seen by GI Dr. Fan for possible MRCP,, none was planned at that time as they taught the elevated liver function tests could be biochemically related to transaminitis from CHF A. fib with RVR. Per patient's recollection, patient gets better after not antibiotic is completed, 2 days thereafter, patient doesn't feel well, has fever, cough shortness of breath, no abdominal pain, no diarrhea, he has soft stools his main complaint is cough and shortness of breath. No dysuria and hematuria In the emergency room, he was evaluated for shortness of breath and cough and fever, chest x-ray shows loculated little effusion, left costophrenic angle, T- max ER 1991, blood pressure 144/91 95% on room air, previous CAT scans were reviewed from 04/03/2019 shows atelectasis bilateral, without any pleural effusion, indeterminate hepatic and renal lesions as discussed performed without contrast studies. CT high resolution to be done, consult with Dr. Nuñez infectious disease, consult with nephrology for maintenance hemodialysis, but cultures obtained, IV Zosyn IV vancomycin patient is high risk for sepsis secondary to his HD program 04/28, 3:55 PM, i was notified regarding of red critical level for CAT scan, showing a large pericardial effusion, 2.1 cm in depth, consult urgent to cardiology Dr. Dunn, consultation stat to thoracic surgeon Dr. Mackay, hold eliquis Plavix, until recommendations from both services cardiology and cardiothoracic surgeon. IV Lasix, ICU admission, high risk for tamponade discussed with ER physician Dr. Oh, consult with commercial loan manager Dr. Bejarano 04/29: Patient remains in the intensive care unit as an overflow for selective care. He has been A. fib, rate controlled. He has been resumed on eliquis and Plavix by cardiology. Dr. Dunn also increase his Lopressor to 25 mg twice daily. Patient has been seen by cardiothoracic surgery and reviewed most recent echo at the beginning of this month and pericardial effusion is actually smaller at this point. Patient also has pleural effusions with no plan for any intervention at this time. Patient is also followed by Dr. Hernandez. We will start Indocin. He has ordered for a repeat echocardiogram. Dr. Nuñez is also on consult. 04/30: The patient remains in intensive care unit waiting for bed on cardiac stepdown unit. He has been afebrile, heart rate 85, blood pressure 110/75, pulse ox 96% on 2 L nasal cannula. WBC 8.0, hemoglobin 11.0, platelet count 150. Sodium 135, potassium 4.4, chloride 99, CO2 27, BUN 38 creatinine 4.5, albumin 2.7. Blood cultures no growth after 24 hours. Urine culture and sputum culture in progress. Repeat chest x-ray revealed increasing bilateral consolidation pleural effusion correlate for pneumonia. Otherwise consider CHF. Marked cardiomegaly Eliazar for cardiomyopathy or pericardial effusion. The patient was seen by Dr. Nuñez with recommendations for continuing vancomycin and switch Zosyn to cefepime. Cardiothoracic surgery does not plan for any surgical intervention. Plan is for medical treatment. Patient underwent hemodialysis yesterday and is undergoing hemodialysis again today. The patient states that his shortness of breath is better. He states he does have some postnasal drainage for which Flonase will be added. He denies any heartburn or reflux. 05/01: Dr. Dunn has increased patient's beta keena to 50 mg twice daily as heart rate is running in the low 100s. Blood pressure 133/75, pulse ox 96% on room air, afebrile. Patient underwent hemodialysis today with removal of 4 L of fluid. Repeat echocardiogram is ordered for tomorrow to recheck pericardial effusion. Dr. white is recommended oral antibiotics time of discharge for possible pneumonia. Objective - Vital Signs Vital signs: Vital Signs Temp 98.7 F 05/01/19 08:00 Pulse 113 H 05/01/19 10:00 Resp 18 05/01/19 10:00 BP 133/75 05/01/19 10:00 Pulse Ox 96 05/01/19 10:00 Intake & Output 04/30/19 05/01/19 05/01/19 18:59 06:59 18:59 Intake Total 50 240 Output Total 3000 0 Balance -2950 240 Weight 80.5 kg Intake: Intake, IV Titration 50 Amount Cefepime 0.5 gm In Sodium 50 Chloride 0.9% 50 ml @ 100 mls/hr IVPB DAILY [facility] Rx#:[id number] Oral 240 Output: Urine 0 0 Hemodialysis 3000 Other: # Bowel Movements 1 - Exam Review of Systems Constitutional: Reports anorexia, denies chills, Reports fever, Reports lethargy, Reports malaise, Denies chronic headaches, Denies chronic pain, Denies daytime sleepiness, Denies fatigue, Denies night sweats, Denies poor appetite, Denies sweats, Denies weakness, Denies weight gain, Denies weight loss Ears, nose, mouth and throat: Denies ant. neck pain, Denies bleeding gums, Denies dental pain, Denies dysphagia, Denies epistaxis, Denies headache, Denies hoarseness, Denies mouth pain, Denies nasal congestion, Denies nasal discharge, Denies neck fullness/pressure, Denies neck lump, Denies nose pain, Denies odynophagia, reports post-nasal drip, Denies sinus pain, Denies sinus pressure, Denies swelling in mouth, Denies swelling in throat, Denies sore throat, Denies vertigo, Denies voice changes Cardiovascular: Denies chest pain, denies chest pressure Respiratory: Reports shortness of breath Gastrointestinal: Denies nausea, denies vomiting, denies abdominal pain Musculoskeletal: Denies myalgias Integumentary: Denies rash Neurological: Denies aphasia, Denies ataxia, Denies balance difficulties, Denies burning pain, Denies change in mentation, Denies change in smell/taste, Denies change in speech, Denies confusion, Denies convulsions, Denies double vision, Denies gait dysfunction, Denies head injury, Denies headaches, Denies hearing difficulties, Denies lack of coordination, Denies loss of vision, Denies memory loss, Denies migraines, Denies motor disturbance, Denies numbness, Denies paralysis, Denies paresthesias, Denies seizures, Denies sensory deficit, Denies spasticity, Denies syncope, Denies tic, Denies tingling, Denies transient paralysis, Denies tremors, Denies vertigo, Denies weakness, Denies visual changes Hematologic/Lymphatic: Reports easy bleeding Allergic/Immunologic: Denies allergic rhinitis, Denies anaphylaxis, Denies angioedema, Denies gluten intolerance, Denies persistent infections, Denies sea em allergies, Denies urticaria, Denies wheezing Physical exam: - Constitutional General appearance: cooperative, no acute distress, sitting up in chair - EENT Eyes: anicteric sclerae, EOMI, PERRLA, dentition normal, normal appearance ENT: hearing grossly normal, NA/AT, normal oropharynx - Neck Neck: normal ROM - Respiratory Respiratory: bilateral: CTA, negative: diminished, dullness, rales - Cardiovascular Rhythm: regular Heart sounds: normal: S1, S2 Abnormal Heart Sounds: no systolic murmur, no diastolic murmur, no rub, no S3 Gallop, no S4 Gallop, no click, no other - Gastrointestinal General gastrointestinal: normal bowel sounds, soft - Integumentary Integumentary: decreased turgor, normal - Neurologic Neurologic: CNII-XII intact - Musculoskeletal Musculoskeletal: strength equal bilaterally - Psychiatric Psychiatric: A&O x's 3, appropriate affect, intact judgment & insight - Labs CBC & Chem 7: 05/01/19 05:09 04/30/19 04:45 Labs: Abnormal Lab Results - Last 24 Hours (Table) 05/01/19 Range/Units 05:09 RBC 3.84 L (4.30-5.90) m/uL Hgb 10.7 L (13.0-17.5) gm/dL Hct 35.3 L (39.0-53.0) % MCHC 30.2 L (31.0-37.0) g/dL RDW 18.1 H (11.5-15.5) % Microbiology - Last 24 Hours (Table) 04/28/19 12:17 Blood Culture - Preliminary Blood No Growth after 48 hours Assessment and Plan Plan: 1. Recurrent fever with pneumonitis, atypical pneumonia with loculated fluid, pleural effusions on chest x-ray findings possible lung abscess left lower, patient will be admitted with consultation to infectious disease Dr. Nuñez., IV cefepime and IV vancomycin, cannot rule out facility acquired pneumonia, showing a loculated left costal phrenic angle pleural effusion, blood cultures have been sent, will try to obtain sputum cultures, and CT of the chest high resolution as above. Lactic acid is normal, sputum cultures if able. Patient is undergoing a more frequent hemodialysis treatments. Ht completed today with removal of 4 L. 2. Large pericardial effusion, colchicine 0.6 mg, aspirin, consults with cardiothoracic surgery, cardiology and intensive is appreciated. No plan for surgical intervention. 3. Chronic atrial fibrillation with RVR. Cardiology consult appreciated. Continue metoprolol increased to 50 by mouth twice a day. Eliquis 2.5 mg twice a day 4. Chronic cholecystitis. Was seen by Dr. Devine in the past, no surgical plans, transaminitis has resolved no current symptoms. 5. End-stage renal failure on dialysis Sunday with graft in left arm. Nephrology consult Continue with dialysis as ordered by nephrology. 6. Generalized weakness. Continue hydration. 7. Latent tuberculosis. Continue isoniazid. To complete program as designated for six-month treatment, patient most likely has 2 months to go 40s 8. Hypertension. Continue metoprolol 25 mg twice daily. Norvasc 5 mg daily Lasix 80 mg IV twice a day 9. Hyperlipidemia. hold Lipitor 40 mg by mouth daily 10. Coronary artery disease with multiple vessel stenting. Continue Lipitor 11. Ischemic cardiomyopathy. Continue metoprolol 12. Osteoarthritis. Continue baclofen 5 mg by mouth twice a day, continue Scammon 5/325 one tablet every 6 hours as needed for pain 13. BPH. Continue Flomax 0.4 mg daily 14. Difficulty sleeping. Melatonin 6 mg by mouth at bedtime 15. GI prophylaxis. Protonix 40 mg IV daily 16. DVT prophylaxis. Eliquis Discharge plan: Home Impression and plan of care have been directed as dictated by the signing physician. Anita Amaya nurse practitioner acting as scribe for signing physic
--- NOTE | 2019-05-01 17:04 | PN ---
PROGRESS NOTE Patient is seen for followup for end-stage renal disease. He is still short of breath, although slightly better than on admission. The patient has been getting dialysis on a daily basis. So far he has had about 9 L of ultrafiltration. We will try for about 3.5 to 4 L today. On examination this morning, blood pressure was 125/72, heart rate of 110 per minute. Patient was afebrile. EXAMINATION OF THE HEART: S1 and S2. EXAMINATION OF LUNGS: Bilateral breath sounds are heard. ABDOMEN: Soft, non-tender. Examination of lower extremities shows no evidence of edema. BRINE SUPERVISOR exam is grossly intact. Labs show sodium of 135, potassium 4.4, BUN 38, serum creatinine 4.5. Hemoglobin was 10.7 g/dL. ASSESSMENT: 1. End-stage renal disease, on hemodialysis on a Sunday, Sunday, Sunday schedule, currently being dialyzed daily for the past 4 days. 2. Volume overload, slowly improving. 3. Large pericardial effusion with no evidence of tamponade; maintained on colchicine. 4. 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 5. Chronic kidney disease mineral bone disorder, maintained on PhosLo. 6. Dyslipidemia. PLAN: Can discontinue Lasix, as patient has not had any significant urine output. UF about 4 L to 3.5 L as tolerated. Repeat hemodialysis in a.m. MMODL / IJN: [id number] /
[2019-05-02 04:08] VITALS: RESP 18
[2019-05-02] MEDS: CEFEPIME 0.5 GM in SODIUM CHLORIDE 0.9% 50 ML IVPB SCH (07:42)
[2019-05-02] MEDS: CALCIUM ACETATE 667 MG CAP PO SCH ×3 (07:42→17:12)
[2019-05-02] MEDS: BRIMONIDINE TARTRATE 0.2% DROPS 5 ML BTL LEFT EYE SCH (07:43)
[2019-05-02] MEDS: TAMSULOSIN 0.4 MG CAP.ER.24H PO SCH (07:43)
[2019-05-02] MEDS: PANTOPRAZOLE 40 MG TABLET PO SCH ×2 (07:43→17:12)
[2019-05-02] MEDS: APIXABAN 2.5 MG TABLET PO SCH (07:43)
[2019-05-02] MEDS: CLOPIDOGREL 75 MG TAB PO SCH (07:43)
[2019-05-02] MEDS: METOPROLOL TARTRATE 50 MG TAB PO SCH (07:43)
[2019-05-02] MEDS: DORZOLAMIDE HCL 2% DROPS 10 ML BTL LEFT EYE SCH (07:43)
[2019-05-02] MEDS: FLUTICASONE 50MCG/SPRAY NASAL 16GM EA NOSTRIL SCH ×2 (07:44→07:50)
[2019-05-02] MEDS: ISONIAZID 100 MG TABLET PO SCH (08:24)
[2019-05-02] MEDS: EZETIMIBE 10 MG TAB PO SCH (08:25)
[2019-05-02] MEDS: COLCHICINE 0.6 MG EACH PO SCH (08:25)
[2019-05-02] MEDS: PYRIDOXINE 50 MG TAB PO SCH (09:34)
--- NOTE | 2019-05-02 09:36 | ECHOF ---
Referral Reason:pe MEASUREMENTS -------- HEIGHT: 167.6 cm WEIGHT: 81.2 kg BP: 136/81 FINDINGS -------- Sinus rhythm. Limited Study for pericardial effusion. There is a small to moderate pericardial effusion is located near the right ventricle. CONCLUSIONS -------- 1. Sinus rhythm. 2. Limited Study for pericardial effusion. 3. There is a small to moderate pericardial effusion is located near the right ventricle. CUSTOMER SERVICE ASSOCIATE: Ivonne Fragoso RDCS
[2019-05-02] MEDS ORDERED: IPRATROPIUM-ALBUTEROL 3 ML NEB INHALATION PRN (11:20)
[2019-05-02] MEDS: IPRATROPIUM-ALBUTEROL 3 ML NEB INHALATION SCH ×2 (11:27→16:21)
--- NOTE | 2019-05-02 11:50 | P.PN ---
Subjective This is a pleasant 63-year-old male past medical history significant for coronary artery disease status post multivessel stenting, end-stage renal di sease and atrial fibrillation. He was found to have a pericardial effusion. He is seen and examined sitting up in bed in no acute distress. He denies symptoms of chest pain, shortness of breath, dizziness or palpitations. Blood pressure 154/72 heart rate 85 afebrile maintaining oxygen saturation on room air. Currently maintained on Eliquis 2.5 mg twice a day, Plavix 75 mg daily, that he had 10 mg daily, Lopressor 50 mg twice a day. Repeat limited echocardiogram reveals small to moderate pericardial effusion ventricle. GENERAL: Well-appearing, well-nourished and in no acute distress. NECK: Supple without JVD or thyromegaly. LUNGS: Breath sounds clear to auscultation bilaterally. Respiration equal and unlabored. No wheezes, rales or rhonchi. HEART: Irregular rate and rhythm without murmurs, rubs or gallops. S1 and S2 heard. EXTREMITIES: Normal range of motion, no edema. No clubbing or cyanosis. Peripheral pulses intact. ASSESSMENT Acute on chronic diastolic heart failure Pericardial effusion, no evidence of tamponade Pneumonitis Latent tuberculosis History of coronary artery disease Hypertension Dyslipidemia End-stage renal disease on hemodialysis Persistent atrial fibrillation on usp anticoagulation, controlled ventricular response. PLAN Continue current medical regiment. We will continue to follow as needed, please feel free to call with further questions or concerns. Follow up in the office with Dr. Dunn in 1-2 weeks. Nurse Practitioner note has been reviewed, I agree with a documented findings and plan of care. Patient was seen and examined. Objective - Vital Signs Vital signs: Vital Signs Temp 98.7 F 05/02/19 07:10 Pulse 85 05/02/19 07:10 Resp 18 05/02/19 07:10 BP 154/72 05/02/19 07:10 Pulse Ox 94 L 05/02/19 07:10 Intake & Output 05/01/19 05/02/19 05/02/19 18:59 06:59 18:59 Intake Total 300 350 70 Output Total 4000 Balance -3700 350 70 Weight 81.2 kg Intake: Intake, IV Titration 300 Amount Cefepime 0.5 gm In Sodium 50 Chloride 0.9% 50 ml @ 100 mls/hr IVPB DAILY [facility] Rx#:[id number] Vancomycin 1,500 mg In 250 Sodium Chloride 0.9% 250 ml @ 125 mls/hr IVPB ONCE ONE Rx#:[id number] Oral 350 70 Output: Hemodialysis 4000 Other: # Voids 1 1 # Bowel Movements 1 - Labs CBC & Chem 7: 05/01/19 05:09 04/30/19 04:45 Labs: Microbiology - Last 24 Hours (Table) 04/28/19 12:17 Blood Culture - Preliminary Blood No Growth after 72 hours 04/28/19 21:11 Gram Stain - Final Sputum Sputum Culture - Final
[2019-05-02] MEDS ORDERED: DARBEPOETIN ALFA 40 MCG/0.4 ML SYRINGE SQ SCH (12:00)
--- NOTE | 2019-05-02 12:11 | PN ---
PROGRESS NOTE Patient is seen for followup for end-stage renal disease. He has had significant volume overload. He is maintained on daily dialysis and has improved. Blood pressure this morning was, on examination, 154/72, heart rate 85 per minute. He is afebrile. Examination of the heart S1, S2. Examination of the lungs, bilateral breath sounds are heard. Abdomen is soft, nontender. Examination of the lower extremities shows no significant edema. FIELD AGRONOMIST exam grossly intact. LABS: Show hemoglobin 10.7 yesterday. Sodium 135, BUN 38, serum creatinine 4.5. ASSESSMENT: 1. End-stage renal disease, maintained on hemodialysis usually on a Sunday, Sunday, Sunday schedule, currently getting daily dialysis. 2. Anemia of chronic disease. Maintain patient on Aranesp. 3. Severe volume overload, currently slowly improving, maintained on daily dialysis. We will plan for another 3.5-4 L today. 4. Large pericardial effusion with no evidence of tamponade as part of the volume overload. 5. CKD mineral bone disorder maintained on PhosLo. 6. Atrial fibrillation with controlled ventricular response. PLAN: Add Aranesp. Continue with daily dialysis for now. UF about 4 L today as tolerated. MMODL / IJN: [id number] /
--- NOTE | 2019-05-02 13:18 | P.PN ---
Subjective Progress Note Date: 05/02/19 Principal diagnosis: Shortness of breath On 05/02/2019 patient seen in follow-up on medical surgical floor. he is awake and alert, in no acute distress, his lung sounds are clear on today's exam, no rhonchi, no wheezing, he is on room air, he had hemodialysis treatment yesterda y, and he will have another hemodialysis treatment today. He had a 4 L of fluid removed with yesterday's hemodialysis, and 3 L removed the day before. Room air pulse ox is 94%, no complaints of chest pain, his chest x-ray from 04/30/2019 showed small bilateral pleural effusions, cardiomegaly. Bedside PFT was done, and was consistent with moderately severe asthmatic bronchitis/COPD. clinically there is no cough or congestion, patient is in atrial fibrillation, he is anticoagulated, on Eliquis 2.5 mg by mouth twice daily. Empiric antibiotics in the form of cefepime and vancomycin, blood urine and sputum culture are negative. Patient is ambulating within the room, tolerating it well. No fever or chills, no new labs today. Objective - Vital Signs Vital signs: Vital Signs Temp 98.7 F 05/02/19 07:10 Pulse 86 05/02/19 11:38 Resp 18 05/02/19 07:10 BP 154/72 05/02/19 07:10 Pulse Ox 94 L 05/02/19 07:10 Intake & Output 05/01/19 05/02/19 05/02/19 18:59 06:59 18:59 Intake Total 300 350 70 Output Total 4000 Balance -3700 350 70 Weight 81.2 kg Intake: Intake, IV Titration 300 Amount Cefepime 0.5 gm In Sodium 50 Chloride 0.9% 50 ml @ 100 mls/hr IVPB DAILY [facility] Rx#:[id number] Vancomycin 1,500 mg In 250 Sodium Chloride 0.9% 250 ml @ 125 mls/hr IVPB ONCE ONE Rx#:[id number] Oral 350 70 Output: Hemodialysis 4000 Other: # Voids 1 1 # Bowel Movements 1 - Exam GENERAL EXAM: Alert, pleasant, 63-year-old male, on room air with a pulse ox of 94% comfortable in no apparent distress. HEAD: Normocephalic/atraumatic. EYES: Normal reaction of pupils, equal size. Conjunctiva pink, sclera white. NOSE: Clear with pink turbinates. THROAT: No erythema or exudates. NECK: No masses, no JVD, no thyroid enlargement, no adenopathy. CHEST: No chest wall deformity. Symmetrical expansion. LUNGS: Equal air entry with no crackles, wheeze, rhonchi or dullness. CVS: Regular rate and rhythm, normal S1 and S2, no gallops, no murmurs, no rubs ABDOMEN: Soft, nontender. No hepatosplenomegaly, normal bowel sounds, no guarding or rigidity. EXTREMITIES: No clubbing, no edema, no cyanosis, 2+ pulses and upper and lower extremities. MUSCULOSKELETAL: Muscle strength and tone normal. SPINE: No scoliosis or deformity SKIN: No rashes CENTRAL NERVOUS SYSTEM: Alert and oriented -3. No focal deficits, tone is normal in all 4 extremities. PSYCHIATRIC: Alert and oriented -3. Appropriate affect. Intact judgment and insight. - Labs CBC & Chem 7: 05/01/19 05:09 04/30/19 04:45 Labs: Microbiology - Last 24 Hours (Table) 04/28/19 12:17 Blood Culture - Preliminary Blood No Growth after 72 hours 04/28/19 21:11 Gram Stain - Final Sputum Sputum Culture - Final Assessment and Plan Plan: Assessment: #1. Dyspnea related to fluid overload, secondary to patient's end-stage renal disease, atrial fibrillation, and component of moderately severe COPD/asthmatic bronchitis. No evidence of pneumonia #2. Persistent atrial fibrillation, anticoagulated with Eliquis #3. History of end-stage renal disease, currently on hemodialysis 3 times a week #4. History of coronary artery disease with previous stent placement #5. Ex-smoker Plan: Bedside PFTs have been reviewed, and are consistent with moderately severe asthmatic bronchitis/COPD, we will add Symbicort, we'll add breathing treatments, patient is due to have another hemodialysis treatment today, clinically he is feeling better, breathing easier, no fever or chills, vital signs remain stable. We will need to see the patient in follow-up in the outpatient basis as well to optimize his COPD. He will need follow-up appointment with Dr. Hernandez in 7-10 days. I performed a history & physical examination of the patient and discussed their management with my nurse practitioner, Jessica Batista. I reviewed the nurse practitioner's note and agree with the documented findings and plan of care. Lung sounds are positive for clear breast sounds. The findings and the impression was discussed with the patient. I attest to the documentation by the nurse practitioner. Time with Patient: Less than 30
[2019-05-02 14:50] VITALS: TEMP 97.8
[2019-05-02 15:33] VITALS: BP 126/67
[2019-05-02 16:35] VITALS: PULSE 80
--- NOTE | 2019-05-02 16:55 | P.DS ---
Providers Date of admission: 04/28/19 15:04 Expected date of discharge: 05/02/19 Attending physician: Yesenia Avelar Consults: 04/28/19 15:04 Consult Physician Routine Consulting Provider: Tristian Nuñez Consult Reason/Comments: Sepsis Do you want consulting provider notified?: Yes 04/28/19 15:58 Consult Physician Urgent Consulting Provider: Sabino Mackay Consult Reason/Comments: large pericardial efusion Do you want consulting provider notified?: Yes 04/28/19 15:59 Consult Physician Urgent Consulting Provider: Jorge Dunn Consult Reason/Comments: large pericardial effusion Do you want consulting provider notified?: Yes 04/28/19 20:01 Consult Physician Routine Consulting Provider: Joao Hernandez Consult Reason/Comments: poor ABG, possible ICU admit Do you want consulting provider notified?: Already Contacted 04/28/19 20:31 Consult Physician Urgent Consulting Provider: Fer Phipps Consult Reason/Comments: dialysis pt with pericardial effusion Do you want consulting provider notified?: Yes Primary care physician: Estrellita Bains Hospital Course: This is a 63-year-old gentleman patient of Dr. Bains. 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 Patient had been ill for the past 3 days, seen in the clinic by GEETHA, and was given a mucolytic. Subsequent to that patient has increasing shortness of breath, fever yesterday, productive cough mainly white sputum, he has temperature at home, approximately 100, he had been admitted off and on for the same problem since 04/01/2019, when he presented initially with chest pain. He was seen by Dr. Nuñez during these episodes, and no blood cultures were isolated from the initial admission April 02, except during the second admission with staph epidermidis in the urine culture, he also had an abdominal ultrasound 03/15/2019 for his chronic cholecystitis was noted, was seen by Dr. Fisher, has elevated liver function tests at that time with no symptoms of the gallbladder, has no acute surgical intervention for the gallbladder that time, patient was seen by GI Dr. Fan for possible MRCP,, none was planned at that time as they taught the elevated liver function tests could be biochemically related to transaminitis from CHF A. fib with RVR. Per patient's recollection, patient gets better after not antibiotic is completed, 2 days thereafter, patient doesn't feel well, has fever, cough shortness of breath, no abdominal pain, no diarrhea, he has soft stools his main complaint is cough and shortness of breath. No dysuria and hematuria In the emergency room, he was evaluated for shortness of breath and cough and fever, chest x-ray shows loculated little effusion, left costophrenic angle, T- max ER 1991, blood pressure 144/91 95% on room air, previous CAT scans were reviewed from 04/03/2019 shows atelectasis bilateral, without any pleural effusion, indeterminate hepatic and renal lesions as discussed performed without contrast studies. CT high resolution to be done, consult with Dr. Nuñez infectious disease, consult with nephrology for maintenance hemodialysis, but cultures obtained, IV Zosyn IV vancomycin patient is high risk for sepsis secondary to his HD program 04/28, 3:55 PM, i was notified regarding of red critical level for CAT scan, showing a large pericardial effusion, 2.1 cm in depth, consult urgent to cardiology Dr. Dunn, consultation stat to thoracic surgeon Dr. Mackay, hold eliquis Plavix, until recommendations from both services cardiology and cardiothoracic surgeon. IV Lasix, ICU admission, high risk for tamponade discussed with ER physician Dr. Oh, consult with attendant sales Dr. Bejarano 04/29: Patient remains in the intensive care unit as an overflow for selective care. He has been A. fib, rate controlled. He has been resumed on eliquis and Plavix by cardiology. Dr. Dunn also increase his Lopressor to 25 mg twice daily. Patient has been seen by cardiothoracic surgery and reviewed most recent echo at the beginning of this month and pericardial effusion is actually smaller at this point. Patient also has pleural effusions with no plan for any intervention at this time. Patient is also followed by Dr. Hernandez. We will start Indocin. He has ordered for a repeat echocardiogram. Dr. Nuñez is also on consult. 04/30: The patient remains in intensive care unit waiting for bed on cardiac stepdown unit. He has been afebrile, heart rate 85, blood pressure 110/75, pulse ox 96% on 2 L nasal cannula. WBC 8.0, hemoglobin 11.0, platelet count 150. Sodium 135, potassium 4.4, chloride 99, CO2 27, BUN 38 creatinine 4.5, albumin 2.7. Blood cultures no growth after 24 hours. Urine culture and sputum culture in progress. Repeat chest x-ray revealed increasing bilateral consolidation pleural effusion correlate for pneumonia. Otherwise consider CHF. Marked cardiomegaly Eliazar for cardiomyopathy or pericardial effusion. The patient was seen by Dr. Nuñez with recommendations for continuing vancomycin and switch Zosyn to cefepime. Cardiothoracic surgery does not plan for any surgical intervention. Plan is for medical treatment. Patient underwent hemodialysis yesterday and is undergoing hemodialysis again today. The patient states that his shortness of breath is better. He states he does have some postnasal drainage for which Flonase will be added. He denies any heartburn or reflux. 05/01: Dr. Dunn has increased patient's beta keena to 50 mg twice daily as heart rate is running in the low 100s. Blood pressure 133/75, pulse ox 96% on room air, afebrile. Patient underwent hemodialysis today with removal of 4 L of fluid. Repeat echocardiogram is ordered for tomorrow to recheck pericardial effusion. Dr. white is recommended oral antibiotics time of discharge for possible pneumonia. 05/02: Patient complains of cough when he is flat in bed and occasional white sputum production. Claritin ordered for bedtime. Repeat echocardiogram reveals small to moderate pericardial effusion. Cardiology is now following on an as- needed basis and plan for follow-up with Dr. Dunn in one to 2 weeks. Bedside PFTs consistent with moderately severe asthmatic bronchitis/COPD. Pulmonary medicine has added Symbicort and nebulizer treatments. Plan is for follow-up [facility] Dr. Hernandez in 7-10 days. Patient is scheduled for hemodialysis today. Dr. Nuñez is planning for oral antibiotics at the time of discharge. The patient will be discharged home today in stable condition. Discharge diagnoses: 1. Acute on chronic diastolic heart failure with fluid overload, no pneumonia. 2. Large pericardial effusion secondary to acute on chronic diastolic heart failure 3. Chronic atrial fibrillation with RVR. 4. Chronic cholecystitis. 5. End-stage renal failure on dialysis Sunday with graft in left arm. 6. Generalized weakness. 7. Latent tuberculosis. 9. Hyperlipidemia. 10. Coronary artery disease with multiple vessel stenting. 11. Ischemic cardiomyopathy. 12. Osteoarthritis. 13. BPH. 14. Difficulty sleeping. Discharge plan: Home Impression and plan of care have been directed as dictated by the signing physician. Anita Amaya nurse practitioner acting as scribe for signing physician. Patient Condition at Discharge: Good Plan - Discharge Summary Discharge Rx Participant: Yes New Discharge Prescriptions: New Loratadine [Claritin] 10 mg PO HS tab Colchicine [Colcrys] 0.6 mg PO DAILY #30 each Fluticasone Nasal Waldo [Flonase Nasal Waldo] 2 spray EA NOSTRIL BID #1 spr Metoprolol Tartrate [Lopressor] 50 mg PO BID #60 tab Albuterol Sulfate [Proventil Hfa] 1 - 2 puff INHALATION Q6HR PRN #1 inhaler PRN Reason: Wheezing Budesonide-Formot 160-4.5 Mcg [Symbicort 160-4.5 Mcg Inhaler] 2 puff INHALATION RT-BID #1 inhaler Ezetimibe [Zetia] 10 mg PO DAILY #30 tab Cefuroxime Axetil [Ceftin] 500 mg PO DAILY 7 Days #7 tab Continue amLODIPine [Norvasc] 10 mg PO DAILY Tamsulosin HCl [Flomax] 0.4 mg PO DAILY Pyridoxine HCl (Vitamin B6) [Vitamin B-6] 100 mg PO DAILY Nitroglycerin Sl Tabs [Nitrostat] 0.4 mg SUBLINGUAL Q5M PRN PRN Reason: Chest Pain Isoniazid 300 mg PO DAILY Furosemide [Lasix] 80 mg PO BID@0900,1600 Clopidogrel [Plavix] 75 mg PO DAILY Calcium Acetate [PhosLo] 1,334 mg PO TID Brimonidine/Dorzolamide/Pf [Brimonidine 0.15%-Dorzolam 2%] 1 drop LEFT EYE DAILY Baclofen 2.5 mg PO BID PRN PRN Reason: Muscle Spasm Apixaban [Eliquis] 2.5 mg PO BID Discontinued Metoprolol Tartrate [Lopressor] 12.5 mg PO BID No Action amLODIPine BESYLATE [Norvasc] 10 mg PO DAILY Metoprolol Tartrate [Lopressor] 12.5 mg PO BID #60 tab Furosemide [Lasix] 80 mg PO BID@0900,1600 Isoniazid 300 mg PO DAILY@0445 Clopidogrel [Plavix] 75 mg PO DAILY Pyridoxine HCl (Vitamin B6) [Vitamin B-6] 100 mg PO DAILY Tamsulosin [Flomax] 0.4 mg PO DAILY Nitroglycerin Sl Tabs [Nitrostat] 0.4 mg SUBLINGUAL Q5M PRN PRN Reason: Chest Pain Brimonidine/Dorzolamide/Pf [Brimonidine 0.15%-Dorzolam 2%] 1 drop LEFT EYE DAILY Baclofen [Lioresal] 5 mg PO BID Penicillin V Potassium [Pen Vee K] 500 mg PO BID Apixaban [Eliquis] 2.5 mg PO BID #60 tab Calcium Acetate [Phoslo] 667 mg PO TID #90 capsule Discharge Medication List amLODIPine BESYLATE [Norvasc] 10 mg PO DAILY 01/02/18 [History] Metoprolol Tartrate [Lopressor] 12.5 mg PO BID #60 tab 01/21/18 [Rx] Furosemide [Lasix] 80 mg PO BID@0900,1600 04/26/18 [History] Clopidogrel [Plavix] 75 mg PO DAILY 12/06/18 [History] Isoniazid 300 mg PO DAILY@0445 12/06/18 [History] Pyridoxine HCl (Vitamin B6) [Vitamin B-6] 100 mg PO DAILY 12/06/18 [History] Tamsulosin [Flomax] 0.4 mg PO DAILY 04/01/19 [History] Baclofen [Lioresal] 5 mg PO BID 04/12/19 [History] Brimonidine/Dorzolamide/Pf [Brimonidine 0.15%-Dorzolam 2%] 1 drop LEFT EYE DAILY 04/12/19 [History] Nitroglycerin Sl Tabs [Nitrostat] 0.4 mg SUBLINGUAL Q5M PRN 04/12/19 [History] Penicillin V Potassium [Pen Vee K] 500 mg PO BID 04/12/19 [History] Apixaban [Eliquis] 2.5 mg PO BID #60 tab 04/18/19 [Rx] Calcium Acetate [Phoslo] 667 mg PO TID #90 capsule 04/18/19 [Rx] Apixaban [Eliquis] 2.5 mg PO BID 04/28/19 [History] Baclofen 2.5 mg PO BID PRN 04/28/19 [History] Brimonidine/Dorzolamide/Pf [Brimonidine 0.15%-Dorzolam 2%] 1 drop LEFT EYE DAILY 04/28/19 [History] Calcium Acetate [PhosLo] 1,334 mg PO TID 04/28/19 [History] Clopidogrel [Plavix] 75 mg PO DAILY 04/28/19 [History] Furosemide [Lasix] 80 mg PO BID@0900,1600 04/28/19 [History] Isoniazid 300 mg PO DAILY 04/28/19 [History] Nitroglycerin Sl Tabs [Nitrostat] 0.4 mg SUBLINGUAL Q5M PRN 04/28/19 [History] Pyridoxine HCl (Vitamin B6) [Vitamin B-6] 100 mg PO DAILY 04/28/19 [History] Tamsulosin HCl [Flomax] 0.4 mg PO DAILY 04/28/19 [History] amLODIPine [Norvasc] 10 mg PO DAILY 04/28/19 [History] Albuterol Sulfate [Proventil Hfa] 1 - 2 puff INHALATION Q6HR PRN #1 inhaler 05/02/19 [Rx] Budesonide-Formot 160-4.5 Mcg [Symbicort 160-4.5 Mcg Inhaler] 2 puff INHALATION RT-BID #1 inhaler 05/02/19 [Rx] Cefuroxime Axetil [Ceftin] 500 mg PO DAILY 7 Days #7 tab 05/02/19 [Rx] Colchicine [Colcrys] 0.6 mg PO DAILY #30 each 05/02/19 [Rx] Ezetimibe [Zetia] 10 mg PO DAILY #30 tab 05/02/19 [Rx] Fluticasone Nasal Waldo [Flonase Nasal Waldo] 2 spray EA NOSTRIL BID #1 spr 05/02/19 [Rx] Loratadine [Claritin] 10 mg PO HS tab 05/02/19 [Rx] Metoprolol Tartrate [Lopressor] 50 mg PO BID #60 tab 05/02/19 [Rx] Follow up Appointment(s)/Referral(s): Jorge Dunn MD [STAFF PHYSICIAN] - 2 Weeks (OFFICE WILL CALL WITH APPOINTMENT TIME) Estrellita Bains MD [Primary Care Provider] - 1 Week (OFFICE CLOSED AT TIME OF DISCHARGE. PLEASE CALL TO MAKE APPOINTMENT) Joao Hernandez DO [Doctor of Osteopathic Medicine] - 1 Week (OFFICE CLOSED AT TIME OF DISCHARGE. PLEASE CALL TO MAKE APPOINTMENT) Patient Instructions/Handouts: Sepsis (GEN) Discharge Disposition: HOME SELF-CARE
[2019-05-02] MEDS ORDERED: SYMBICORT 160-4.5 MCG INHALER INHALATION SCH (20:00)
[2019-05-02] MEDS ORDERED: LORATADINE 10 MG TAB PO SCH (21:00)
--- NOTE | 2019-05-03 10:12 | PN ---
PROGRESS NOTE DATE OF SERVICE: 05/02/2019 REASON FOR FOLLOWUP: Possible pneumonia. INTERVAL HISTORY: The patient was seen on rounds earlier this afternoon: Patient has been afebrile. Patient was breathing comfortably on room air. Denies having any chest pain. Very minimal cough. No nausea, no vomiting. No abdominal pain, no diarrhea. PHYSICAL EXAMINATION: Blood pressure 126/57 with a pulse of 96. Temperature 97.8. He was 100% on room air. General description is a middle aged male, up in the room in no distress. RESPIRATORY SYSTEM: Unlabored breathing. Decreased breath sounds in the bases, no wheeze. HEART: S1, S2. Regular rate and rhythm. ABDOMEN: Soft. LABS: Sputum and blood cultures have been negative. DIAGNOSTIC IMPRESSION AND PLAN: Patient admitted to hospital with difficulty breathing which is likely multifactorial. Did have a component of pneumonia, sputum has been negative for resistant pathogen. Patient to finish a course of oral Ceftin and continue supportive care. MMODL / IJN: [id number] /
--- NOTE | 2019-05-08 02:54 | CDI ---
Documentation Clarification Form Date: 05/08/19 From: [place] Phone: call [phone] Admit Date: 04/28/2019 3:04:00 PM Patient Name: Ranjan Toscano Visit Number: [id number] Discharge Date: 05/02/2019 6:02:00 PM ATTENTION: The Clinical Documentation Specialists (CDI) and [facility] Coding Staff appreciate your assistance in clarifying documentation. Please respond to the clarification below the line at the bottom and electronically sign. The CDI & [facility] Coding staff will review the response and follow-up if needed. Please note: Queries are made part of the Legal Health Record. If you have any questions, please contact the author of this message via ITS. Dr. Anita Amaya, CHF is documented in the 05/02 progress note as " Acute on chronic diastolic heart failure" by Dr.Suresh Solange Escobar. History/Risk Factors: pneumonia, Pleural effusion, pericardial effusion. Clinical Indicators: VS/Pulse OX: 94L BNP: NA Echocardiogram Results: an EF between 55 - 60 %. Chest X Ray:Loculated left costophrenic angle pleural effusion Treatment: IV lasix. In your professional opinion, can you please clarify the acuity and type of CHF if known? Diastolic Heart Failure: Acute Chronic Acute on Chronic Unable to Determine Other, please specify MTDD
== END 2019-05-02 18:02 | disposition home or self-care (01) | DRG 193 ==
LOC: EC 11:17 → MERGE 15:04 → 4SSUR 15:04 → 2SICU 18:51 → 4SSUR 05-01 17:14
PROVIDERS: ADMIT Family Medicine; ATTEND Family Medicine
PROC: 5A1D70Z Performance of Urinary Filtration, Intermittent, Less than 6 Hours Per Day (ICD-10-PCS; principal; 2019-04-30)
DX: J18.9 Pneumonia, unspecified organism (principal); N18.6 End stage renal disease; I50.33 Acute on chronic diastolic (congestive) heart failure; I13.2 Hypertensive heart and chronic kidney disease with heart failure and with stage 5 chronic kidney disease, or end stage renal disease; J44.0 Chronic obstructive pulmonary disease with (acute) lower respiratory infection; I31.3 Pericardial effusion (noninflammatory); I48.1 Persistent atrial fibrillation; E87.3 Alkalosis; I48.0 Paroxysmal atrial fibrillation; K21.9 Gastro-esophageal reflux disease without esophagitis; M19.90 Unspecified osteoarthritis, unspecified site; N40.0 Benign prostatic hyperplasia without lower urinary tract symptoms; E78.5 Hyperlipidemia, unspecified; D63.8 Anemia in other chronic diseases classified elsewhere; R76.11 Nonspecific reaction to tuberculin skin test without active tuberculosis; K81.1 Chronic cholecystitis; I25.5 Ischemic cardiomyopathy; I25.10 Atherosclerotic heart disease of native coronary artery without angina pectoris; Z99.2 Dependence on renal dialysis; Z95.5 Presence of coronary angioplasty implant and graft; Z79.01 Long term (current) use of anticoagulants; Z79.02 Long term (current) use of antithrombotics/antiplatelets; Z79.899 Other long term (current) drug therapy; Z82.49 Family history of ischemic heart disease and other diseases of the circulatory system; Z87.891 Personal history of nicotine dependence
CPT/HCPCS: 36415; 36600; 71045; 71046; 71250; 80053; 80202; 81001; 82550; 82805; 83605; 83735; 83880; 84100; 84145; 84484; 85025; 85610; 85730; 87040; 87070; 87086; 87205; 90935; 93005; 93306; 93308; 94060; 94640; 94726; 94729; 96365; 96366; 96368; 99291

== ENCOUNTER → 2020-04-06 | Outpatient (CLI) | payer MEDICARE, OTHER ==
[2020-04-06 11:23] LABS: Calcium 9.1 mg/dL (8.4-10.2); Potassium 4.9 mmol/L (3.5-5.1)
[2020-04-06 11:29] LABS: Basophils % (A) 1 %; Eosinophils # (A) 0.3 k/uL (0-0.7); Eosinophils % (A) 5 %; HCT 37.9 % (39.0-53.0); HGB 11.7 gm/dL (13.0-17.5); Hypochromasia Slight; Lymphocytes # (A) 1.4 k/uL (1.0-4.8); Lymphocytes % (A) 23 %; MCH 29.4 pg (25.0-35.0); MCHC 30.8 g/dL (31.0-37.0); MCV 95.3 fL (80.0-100.0); Mean Platelet Volume 8.9; Monocytes # (A) 0.5 k/uL (0-1.0); Monocytes % (A) 8 %; Neutrophils # (A) 3.7 k/uL (1.3-7.7); Neutrophils % (A) 61 %; RBC 3.97 m/uL (4.30-5.90); RDW 15.6 % (11.5-15.5); WBC 6.1 k/uL (3.8-10.6)
[2020-04-06 12:09] LABS: Anisocytosis (M) Present; Platelet Count 97 k/uL (150-450); Poikilocytosis (M) Present
== END | disposition home or self-care (01) ==
LOC: LABPAT 10:38
PROVIDERS: ATTEND Urology
DX: Z01.818 Encounter for other preprocedural examination (principal); R31.21 Asymptomatic microscopic hematuria
CPT/HCPCS: 36415; 80048; 85025

== ENCOUNTER → 2020-05-19 | Outpatient (CLI) | payer MEDICARE, OTHER ==
--- NOTE | 2020-05-19 14:18 | XR ---
EXAMINATION TYPE: XR chest 2V DATE OF EXAM: 05/19/2020 COMPARISON: 04/30/2019 INDICATION: Chest pain TECHNIQUE: Single frontal view of the chest is obtained. FINDINGS: The heart size is normal. Previous cardiomegaly is resolved. Previous pleural effusions are resolved . The pulmonary vasculature is normal. The lungs are clear. There is hyperinflation flattening the diaphragms compatible COPD. IMPRESSION: 1. No acute pulmonary process. 2. COPD
== END | disposition home or self-care (01) ==
LOC: RADXRMAIN 13:55
PROVIDERS: ATTEND Internal Medicine
DX: J44.9 Chronic obstructive pulmonary disease, unspecified (principal); I21.9 Acute myocardial infarction, unspecified
CPT/HCPCS: 71046

== ENCOUNTER 2020-06-18 22:19 | Emergency (ER) | payer BC, MEDICARE, OTHER ==
[2020-06-18 22:28] VITALS: TEMP 97.5
[2020-06-18] MEDS ORDERED: MORPHINE SULFATE 4 MG/ML SYRINGE IM STA (23:52)
[2020-06-18] MEDS ORDERED: MORPHINE SULFATE 2 MG/ML SYRINGE IVP STA (23:58)
--- NOTE | 2020-06-19 00:08 | ED ---
General Adult HPI - General Chief complaint: Abdominal Pain Stated complaint: Post Op Pain Time Seen by Provider: 06/18/20 22:35 Source: patient, RN notes reviewed, old records reviewed Mode of arrival: ambulatory Limitations: no limitations - History of Present Illness Initial comments: 64-year-old male patient presents to ED with cheif complaint suprapubic pain. Patient is on hemodialysis. Patient reported he had a cystoscopy earlier today by Dr. Soler. Is denying any other acute complaint at this time. Systemic: Pt denies fatigue, fever/chills, rash. Pt denies weakness, night sweats, weight loss. Neuro: Pt denies headache, visual disturbances, syncope or pre-syncope. HEENT: Pt denies ocular discharge or irritation, otalgia, rhinorrhea, pha ryngitis or notable lymphadenopathy. Cardiopulmonary: Pt denies chest pain, SOB, heart palpitations, dyspnea on exertion. Abdominal/GI: Pt denies abdominal pain, n/v/d. : Pt denies requency/urgency. Denies new onset urinary or bowel incontinence. MSK: Pt denies myalgia, loss of strength or function in extremities. Neuro: Pt denies new onset weakness, paresthesias. - Related Data Home Medications Medication Instructions Recorded Confirmed amLODIPine BESYLATE [Norvasc] 5 mg PO DAILY 01/02/18 04/12/20 Tamsulosin [Flomax] 0.4 mg PO DAILY 04/01/19 04/12/20 Brimonidine/Dorzolamide/Pf 1 drop LEFT EYE DAILY 04/28/19 04/12/20 [Brimonidine 0.15%-Dorzolam 2%] Furosemide [Lasix] 80 mg PO BID@0900,1600 04/28/19 04/12/20 Nitroglycerin Sl Tabs [Nitrostat] 0.4 mg SUBLINGUAL Q5M PRN 04/28/19 04/12/20 Aspirin [Adult Low Dose Aspirin EC] 81 mg PO DAILY 04/12/20 04/12/20 Atorvastatin [Lipitor] 40 mg PO DAILY 04/12/20 04/12/20 Calcium Acetate [Phoslo] 667 mg PO AC-TID 04/12/20 04/12/20 Metoprolol Tartrate [Lopressor] 25 mg PO BID 04/12/20 04/12/20 Previous Rx's Medication Instructions Recorded Apixaban [Eliquis] 2.5 mg PO BID #60 tab 04/18/19 Albuterol Sulfate [Proventil Hfa] 1 - 2 puff INHALATION Q6HR PRN #1 05/02/19 inhaler Allergies Allergy/AdvReac Type Severity Reaction Status Date / Time No Known Allergies Allergy Verified 06/18/20 22:28 Review of Systems ROS Statement: Those systems with pertinent positive or pertinent negative responses have been documented in the HPI. ROS Other: All systems not noted in ROS Statement are negative. Past Medical History Past Medical History: Coronary Artery Disease (CAD), Hyperlipidemia, Hypertension, Renal Disease Additional Past Medical History / Comment(s): AV Fistula on left arm. History of Any Multi-Drug Resistant Organisms: None Reported Past Surgical History: Heart Catheterization, Heart Catheterization With Stent Additional Past Surgical History / Comment(s): AV Fistula on left arm. Past Anesthesia/Blood Transfusion Reactions: No Reported Reaction Additional Past Anesthesia/Blood Transfusion Reaction / Comment(s): Pt received blood years ago with his stomach ulcer bleed-no reaction. Date of Last Stent Placement:: 05/2018 Past Psychological History: No Psychological Hx Reported Smoking Status: Former smoker Past Alcohol Use History: None Reported, Unable to Obtain - Past Family History Father Family Medical History: Asthma Additional Family Medical History / Comment(s): Father at the age of 64yrs. Mother Family Medical History: Hypertension, Myocardial Infarction (NM) Additional Family Medical History / Comment(s): Mother had a NM sometime prior to age 60yrs. She is 86yrs old. Stent Brother(s) Family Medical History: No Reported History Sister(s) Family Medical History: No Reported History Son(s) Family Medical History: No Reported History Daughter(s) Family Medical History: No Reported History General Exam - General Exam Comments Initial Comments: Constitutional: NAD, AOX3, Pt has pleasant affect. HEENT: NC/AT, trachea midline, neck supple, no lymphadenopathy. External ears appear normal, without discharge. Mucous membranes moist. Eyes PERRLA, EOM intact. There is no scleral icterus. No pallor noted. Cardiopulmonary: RRR, no murmurs, rubs or gallops, no JVD noted. Lungs CTAB in anterior and posterior carrsaco. No peripheral edema. Abdominal exam: Abdomen soft and non-distended. Abdomen mildly tender to palpation in suprapubic region. Bowel sounds active in LLQ. No hepatosplenomegaly. No ecchymosis Neuro: CN II-XII grossly intact. MSK: Full active ROM in upper and lower extremities, 5/5 stregnth. Limitations: no limitations Course Vital Signs 06/18/20 22:24 Temperature 97.5 F L Pulse Rate 63 Respiratory 20 Rate Blood Pressure 180/68 O2 Sat by Pulse 99 Oximetry Medical Decision Making - Medical Decision Making 64-year-old male patient with a chief complaint supralevator abdominal pain after cystoscopy earlier today. Patient vital signs display mild hypertension. Physical exam a mild suprapubic tenderness. Laboratory investigations were ordered as well as a CT patient declined the states that his pain has gone away and he wants to go home. She'll be discharged to follow-up with Dr. Delong return to ER if any worsening symptoms. Case discussed with Dr. Alexis. Disposition Clinical Impression: Post-operative pain Disposition: HOME SELF-CARE Condition: Stable Instructions (If sedation given, give patient instructions): Cystoscopy (DC) Additional Instructions: Follow up with Dr. Soler tomorrow follow up with primary care provider tomorrow. Return to ER with any worsening symptoms. Is patient prescribed a controlled substance at d/c from ED?: No Referrals: Estrellita Bains MD [Primary Care Provider] - 1-2 days
[2020-06-19 00:53] VITALS: BP 181/68; PULSE 62; RESP 19
[2020-06-19 01:00] LABS: Appearance,Urine Cloudy (Clear); Bilirubin,Urine Negative (Negative); Blood,Urine Large (Negative); Color,Urine Light Brown; Glucose,Urine (UA) Negative (Negative); Ketones,Urine Negative (Negative); Leukocyte Esterase,Urine Small (Negative); Nitrite,Urine Negative (Negative); PH, Urine 8.5 (5.0-8.0); Protein,Urine 3+ (Negative); RBC,Urine >182 /hpf (0-5); Specific Gravity,Urine 1.015 (1.001-1.035); Urobilinogen,Urine <2.0 mg/dL (<2.0); WBC,Urine 87 /hpf (0-5)
== END 2020-06-19 00:15 | disposition home or self-care (01) ==
LOC: EC 22:19
DX: G89.18 Other acute postprocedural pain (principal); R10.9 Unspecified abdominal pain; I10 Essential (primary) hypertension; E78.5 Hyperlipidemia, unspecified; I25.10 Atherosclerotic heart disease of native coronary artery without angina pectoris; Z79.899 Other long term (current) drug therapy; Z79.82 Long term (current) use of aspirin; Z87.891 Personal history of nicotine dependence
CPT/HCPCS: 81001; 87086; 99284

== ENCOUNTER 2021-10-09 08:46 | Emergency (ER) | payer MEDICARE ==
[2021-10-09 08:53] VITALS: BP 190/73; PULSE 71; RESP 18; TEMP 97.7
--- NOTE | 2021-10-09 09:21 | ED ---
General Adult HPI - General Chief complaint: Extremity Injury, Upper Stated complaint: Fall/Lt hand injury Time Seen by Provider: 10/09/21 08:53 Source: patient, RN notes reviewed Mode of arrival: ambulatory Limitations: no limitations - History of Present Illness Initial comments: 65-year-old male presents to the emergency room for left wrist pain. Patient states that yesterday he slipped on ice wrist. Patient states it has been hurting him and he had trouble sleeping last night so he wanted to be evaluated. States she would like to make sure it is not broken. Denies any left hand pain. States he can move his hand fine however the back of his wrist hurts.Patient has no other complaints at this time including shortness of breath, chest pain, abdominal pain, nausea or vomiting, headache, or visual changes. - Related Data Home Medications Medication Instructions Recorded Confirmed amLODIPine BESYLATE [Norvasc] 5 mg PO DAILY 01/02/18 04/12/20 Tamsulosin [Flomax] 0.4 mg PO DAILY 04/01/19 04/12/20 Brimonidine/Dorzolamide/Pf 1 drop LEFT EYE DAILY 04/28/19 04/12/20 [Brimonidine 0.15%-Dorzolam 2%] Furosemide [Lasix] 80 mg PO BID@0900,1600 04/28/19 04/12/20 Nitroglycerin Sl Tabs [Nitrostat] 0.4 mg SUBLINGUAL Q5M PRN 04/28/19 04/12/20 Aspirin [Adult Low Dose Aspirin EC] 81 mg PO DAILY 04/12/20 04/12/20 Atorvastatin [Lipitor] 40 mg PO DAILY 04/12/20 04/12/20 Calcium Acetate [Phoslo] 667 mg PO AC-TID 04/12/20 04/12/20 Metoprolol Tartrate [Lopressor] 25 mg PO BID 04/12/20 04/12/20 Previous Rx's Medication Instructions Recorded Apixaban [Eliquis] 2.5 mg PO BID #60 tab 04/18/19 Albuterol Sulfate [Proventil Hfa] 1 - 2 puff INHALATION Q6HR PRN #1 05/02/19 inhaler Allergies Allergy/AdvReac Type Severity Reaction Status Date / Time No Known Allergies Allergy Verified 10/09/21 08:52 Review of Systems ROS Statement: Those systems with pertinent positive or pertinent negative responses have been documented in the HPI. ROS Other: All systems not noted in ROS Statement are negative. Past Medical History Past Medical History: Coronary Artery Disease (CAD), Hyperlipidemia, Hypertension, Renal Disease Additional Past Medical History / Comment(s): AV Fistula on left arm. History of Any Multi-Drug Resistant Organisms: None Reported Past Surgical History: Heart Catheterization, Heart Catheterization With Stent Additional Past Surgical History / Comment(s): AV Fistula on left arm. Past Anesthesia/Blood Transfusion Reactions: No Reported Reaction Additional Past Anesthesia/Blood Transfusion Reaction / Comment(s): Pt received blood years ago with his stomach ulcer bleed-no reaction. Date of Last Stent Placement:: 05/2018 Past Psychological History: No Psychological Hx Reported Smoking Status: Former smoker Past Alcohol Use History: None Reported Past Drug Use History: None Reported - Past Family History Father Family Medical History: Asthma Additional Family Medical History / Comment(s): Father at the age of 64yrs. Mother Family Medical History: Hypertension, Myocardial Infarction ([place]) Additional Family Medical History / Comment(s): Mother had a [place] sometime prior to age 60yrs. She is 86yrs old. Stent Brother(s) Family Medical History: No Reported History Sister(s) Family Medical History: No Reported History Son(s) Family Medical History: No Reported History Daughter(s) Family Medical History: No Reported History General Exam Limitations: no limitations General appearance: alert, in no apparent distress Head exam: Present: atraumatic Eye exam: Present: normal appearance, PERRL, EOMI. Absent: scleral icterus, conjunctival injection ENT exam: Present: normal exam, mucous membranes moist Neck exam: Present: normal inspection, full ROM. Absent: tenderness Respiratory exam: Present: normal lung sounds bilaterally. Absent: respiratory distress, wheezes Cardiovascular Exam: Present: regular rate, normal rhythm, normal heart sounds Extremities exam: Present: full ROM, tenderness (Tenderness noted to the dorsum of the left wrist. There is no scaphoid or snuffbox tenderness.), normal capillary refill (Capillary refill less than 2 seconds, DP pulse 2+ left upper extremity), other (Sensation intact left upper extremity). Absent: joint swelling Course Vital Signs 10/09/21 08:47 Temperature 97.7 F Pulse Rate 71 Respiratory 18 Rate Blood Pressure 190/73 O2 Sat by Pulse 96 Oximetry Medical Decision Making - Medical Decision Making Vitals are stable. HPI and physical exam as documented. No tenderness in the anatomic snuffbox. X-ray shows no acute fracture or dislocation. Patient was wrapped with an Wong wrap. I did discuss that if symptoms continue after 7 days he needs to see orthopedics or primary care for repeat x-ray. If patient has any worsening symptoms he will return to the emergency room. Disposition Clinical Impression: Wrist pain, left Disposition: HOME SELF-CARE Condition: Good Instructions (If sedation given, give patient instructions): Arm Fracture in Adults (ED), Wrist Injury (ED) Additional Instructions: These rest ice and elevate the left wrist. Use Wong wrap. Follow-up with primary care. If symptoms are not improving in 7 days you should see primary care or orthopedics for a repeat x-ray of the wrist. Is patient prescribed a controlled substance at d/c from ED?: No Referrals: Estrellita Bains MD [Primary Care Provider] - 1-2 days [place] Rivera DO [Doctor of Osteopathic Medicine] - 1-2 days Time of Disposition: 09:44
--- NOTE | 2021-10-09 09:21 | XR ---
EXAMINATION TYPE: XR wrist complete LT DATE OF EXAM: 10/09/2021 CLINICAL HISTORY: Pain after fall injury. TECHNIQUE: Frontal, lateral and oblique images of the left wrist are obtained. 4 view scaphoid view is performed. COMPARISON: None FINDINGS: There is no acute fracture/dislocation evident in the left wrist. The joint spaces in the left wrist appear within normal limits. The overlying soft tissue appears unremarkable. IMPRESSION: There is no acute fracture or dislocation in the left wrist.
[2021-10-09] MEDS ORDERED: ACET/COD 300 MG/30 MG STARTER PACK 6 TAB BTL PO STA (09:53)
== END 2021-10-09 10:06 | disposition home or self-care (01) ==
LOC: EC 08:46
DX: M25.532 Pain in left wrist (principal); I10 Essential (primary) hypertension; I25.10 Atherosclerotic heart disease of native coronary artery without angina pectoris; E78.5 Hyperlipidemia, unspecified; Z87.891 Personal history of nicotine dependence; Z79.01 Long term (current) use of anticoagulants; Z79.51 Long term (current) use of inhaled steroids; Z79.82 Long term (current) use of aspirin; Z79.899 Other long term (current) drug therapy; W01.0XXA Fall on same level from slipping, tripping and stumbling without subsequent striking against object, initial encounter
CPT/HCPCS: 99284

== ENCOUNTER → 2022-12-27 | Outpatient (CLI) | payer MEDICARE, BC ==
--- NOTE | 2022-12-27 15:30 | XR ---
EXAMINATION TYPE: XR thoracic spine 2V DATE OF EXAM: 12/27/2022 3:05 PM INDICATION: Patient age:Male; 67 years old; Reason for study: M54.6 PAIN IN THORACIC SPINE; COMPARISON: CT 04/28/2019 TECHNIQUE: 2 views of the thoracic spine in Frontal and lateral projections. FINDINGS: No evidence of acute fracture. There is scattered multilevel disk space narrowing without loss of ve rtebral body height. There is normal alignment of the thoracic vertebral bodies. Scattered osteophyte formation along the anterior and lateral aspects of the vertebral bodies. Neural foramen are patent given limitations of this exam. Spinal canal appears patent. IMPRESSION: 1. No acute osseous pathology. 2. Mild disc degeneration changes throughout the spine.
== END | disposition home or self-care (01) ==
LOC: RADXRMAIN 14:55
PROVIDERS: ATTEND Internal Medicine
DX: M51.34 Other intervertebral disc degeneration, thoracic region (principal)
CPT/HCPCS: 72070

== ENCOUNTER → 2023-04-09 | Outpatient (CLI) | payer MEDICARE, BC ==
[2023-04-09 10:04] LABS: Protein/Creatinine Ratio,Urine 0.207
[2023-04-09 10:59] LABS: HCT 44.9 % (39.6-50.0); MCH 25.3 pg (27.0-32.0); MCV 87.5 FL (80.0-97.0); Mean Platelet Volume 11.7 FL (9.5-12.2); NRBC Per 100 WBC 0 X 10*3/uL (0.00-0.01); Platelet Count 124 X 10*3/uL (140-440); RBC 5.13 X 10*6/uL (4.40-5.60); RDW 15.5 % (11.5-14.5); WBC 4.78 X 10*3/uL (4.50-10.00)
[2023-04-09 11:34] LABS: Basophils # (M) 0 X 10*3/uL (0.00-0.10); Neutrophils % (M) 78 %
[2023-04-09 11:39] LABS: Elliptocytes 2+; Lymphocytes # (M) 0.57 X 10*3/uL (0.90-5.00); Metamyelocytes % 2 % (0-0); Microcytosis (M) 2+; Monocytes # (M) 0.24 X 10*3/uL (0.20-1.00); Myelocytes % 1 % (0-0); Neutrophils # (M) 3.73 X 10*3/uL (1.80-7.70); Nucleated Red Blood Cells 1 /100 WBCS
[2023-04-09 11:41] LABS: % Iron Saturation 58.82 (15.00-50.00); ALT 27 U/L (10-49); AST 24 U/L (14-35); Albumin 4.3 d/dL (3.8-4.9); Albumin/Globulin Ratio 2.69 Ratio (1.60-3.17); Alkaline Phosphatase 112 U/L (41-126); BUN/Creat Ratio 16.27 Ratio (12.00-20.00); Blood Urea Nitrogen 24.4 mg/dL (9.0-27.0); Calcium 10.1 mg/dL (8.7-10.3); Carbon Dioxide 23.8 mmol/L (21.6-31.8); Chloride 107 mmol/L (96-109); Chol/HDL Ratio 1.94 Ratio; Globulin 1.6 d/dL (1.6-3.3); Glucose 116 mg/dL (70-110); Iron 150 UG/DL (65-175); LDL Cholesterol,Calculated 49.9 mg/dL (0.0-131.0); Phosphorus 3.1 mg/dL (2.4-5.1); Potassium 4.3 mmol/L (3.5-5.5); Sodium 142 mmol/L (135-145); Total Bilirubin 0.5 mg/dL (0.3-1.2); Total Iron Binding Capacity 255 UG/DL (228-460); Total Protein 5.9 d/dL (6.2-8.2); VLDL Calculation 12.06 mg/dL (5.00-40.00)
[2023-04-10 13:03] LABS: BK Virus DNA PCR, Qualitative Not detected (Not detected); BKV DNA (PCR), Quant <125 Copies/mL (<125); LOG BKV Copies/mL <2.10 (<2.10)
== END | disposition home or self-care (01) ==
LOC: LABWHC1 07:19
PROVIDERS: ATTEND Nurse Practitioner Acute Care
DX: E78.5 Hyperlipidemia, unspecified (principal); E55.9 Vitamin D deficiency, unspecified; Z94.0 Kidney transplant status; N18.2 Chronic kidney disease, stage 2 (mild); R73.01 Impaired fasting glucose
CPT/HCPCS: 36415; 80053; 80061; 80197; 82306; 82570; 82728; 83036; 83540; 83550; 83970; 84100; 84156; 85025

== ENCOUNTER → 2023-05-08 | Outpatient (CLI) | payer MEDICARE, BC | END | disposition home or self-care (01) | LOC: LABWHC1 07:25 | PROVIDERS: ATTEND Nurse Practitioner Acute Care | DX: Z53.9 Procedure and treatment not carried out, unspecified reason (principal) ==

== ENCOUNTER → 2023-06-04 | Outpatient (CLI) | payer MEDICARE, BC ==
[2023-06-04 11:33] LABS: Basophils # (M) 0 X 10*3/uL (0.00-0.10); HCT 42.4 % (39.6-50.0); HGB 12.8 d/dL (13.0-17.0); MCHC 30.2 d/dL (32.0-37.0); Mean Platelet Volume 13.5 FL (9.5-12.2); NRBC Per 100 WBC 0 X 10*3/uL (0.00-0.01); Neutrophils % (M) 74 %; Platelet Count 119 X 10*3/uL (140-440); RBC 4.93 X 10*6/uL (4.40-5.60); RDW 15.8 % (11.5-14.5)
[2023-06-04 11:35] LABS: ALT 21 U/L (10-49); AST 20 U/L (14-35); Albumin 4.3 d/dL (3.8-4.9); Albumin/Globulin Ratio 2.87 Ratio (1.60-3.17); Alkaline Phosphatase 89 U/L (41-126); BUN/Creat Ratio 22.62 Ratio (12.00-20.00); Blood Urea Nitrogen 29.4 mg/dL (9.0-27.0); Calcium 10.3 mg/dL (8.7-10.3); Carbon Dioxide 24.3 mmol/L (21.6-31.8); Chloride 106 mmol/L (96-109); Elliptocytes 2+; Eosinophils # (M) 0.04 X 10*3/uL (0.04-0.35); Globulin 1.5 d/dL (1.6-3.3); Glucose 120 mg/dL (70-110); Lymphocytes # (M) 0.63 X 10*3/uL (0.90-5.00); Metamyelocytes % 3 % (0-0); Monocytes # (M) 0.36 X 10*3/uL (0.20-1.00); Neutrophils # (M) 3.33 X 10*3/uL (1.80-7.70); Phosphorus 2.9 mg/dL (2.4-5.1); Potassium 4.8 mmol/L (3.5-5.5); Sodium 140 mmol/L (135-145); Total Bilirubin 0.4 mg/dL (0.3-1.2); Total Protein 5.8 d/dL (6.2-8.2)
[2023-06-04 11:59] LABS: Creatinine,Urine Random 50.6 mg/dL; Protein/Creatinine Ratio,Urine 0.237
== END | disposition home or self-care (01) ==
LOC: LABWHC1 07:14
PROVIDERS: ATTEND Transplant Surgery
DX: Z94.0 Kidney transplant status (principal)
CPT/HCPCS: 36415; 80053; 80197; 82570; 84100; 84156; 85025

== ENCOUNTER → 2023-06-25 | Outpatient (CLI) | payer MEDICARE, BC ==
[2023-06-25 11:18] LABS: Chol/HDL Ratio 2.14 Ratio; LDL Cholesterol,Calculated 57.4 mg/dL (0.0-131.0); VLDL Calculation 12.84 mg/dL (5.00-40.00)
[2023-06-25 13:55] LABS: Microalbumin Creatinine Ratio <26 mg/g Cr (0-30); Urine Creatinine 46.2 mg/dL (39.0-259.0)
== END | disposition home or self-care (01) ==
LOC: LABWHC1 06:48
PROVIDERS: ATTEND Internal Medicine
DX: E78.2 Mixed hyperlipidemia (principal); R73.03 Prediabetes; R73.01 Impaired fasting glucose
CPT/HCPCS: 36415; 80061; 82043; 82570; 83036; 84443

== ENCOUNTER → 2023-07-16 | Outpatient (CLI) | payer MEDICARE, BC ==
[2023-07-16 19:10] LABS: % Iron Saturation 48.41 (15.00-50.00); Chol/HDL Ratio 1.99 Ratio; Iron 122 UG/DL (65-175); LDL Cholesterol,Calculated 56.1 mg/dL (0.0-131.0); Total Iron Binding Capacity 252 UG/DL (228-460); VLDL Calculation 10.38 mg/dL (5.00-40.00)
== END | disposition home or self-care (01) ==
LOC: LABWHC1 06:56
PROVIDERS: ATTEND Nurse Practitioner Acute Care
DX: N18.2 Chronic kidney disease, stage 2 (mild) (principal); E55.9 Vitamin D deficiency, unspecified; E78.5 Hyperlipidemia, unspecified; R73.01 Impaired fasting glucose
CPT/HCPCS: 36415; 80061; 82306; 82728; 83036; 83540; 83550; 83970

== ENCOUNTER → 2023-07-30 | Outpatient (CLI) | payer MEDICARE, BC | END | disposition home or self-care (01) | LOC: LABWHC1 08:01 | PROVIDERS: ATTEND Nurse Practitioner Acute Care | DX: Z53.9 Procedure and treatment not carried out, unspecified reason (principal) ==

== ENCOUNTER → 2023-08-06 | Outpatient (CLI) | payer MEDICARE, BC ==
--- NOTE | 2023-08-06 10:19 | XR ---
EXAMINATION TYPE: XR lumbosacral spine min 4V DATE OF EXAM: 08/06/2023 10:14 AM CLINICAL INDICATION:Male, 67 years old with history of M5440 ACUTE GEORGE LOW BACK PAIN; COMPARISON: None TECHNIQUE: XR lumbosacral spine min 4V - Frontal, lateral and coned in L5-S1 lateral views of the spi ne. FINDINGS: No evidence of any acute osseous pathology. No evidence of loss of vertebral body height i s seen. There is normal alignment of the lumbar vertebral bodies. Mild scattered disc space narrowing . Multilevel marginal osteophyte formation throughout the visualized spine. There is facet joint arth ropathy throughout the spine. Scattered at least mild neural foraminal stenosis. IMPRESSION: 1. No acute fracture. 2. Mild multilevel disc degeneration.
== END | disposition home or self-care (01) ==
LOC: RADXRMAIN 09:38
PROVIDERS: ATTEND Internal Medicine
DX: M51.17 Intervertebral disc disorders with radiculopathy, lumbosacral region (principal)
CPT/HCPCS: 72110

== ENCOUNTER → 2023-12-05 | Outpatient (CLI) | payer BC ==
[2023-12-05 15:34] LABS: ALT 19 U/L (10-49); AST 17 U/L (14-35); Albumin 4.1 g/dL (3.8-4.9); Albumin/Globulin Ratio 2.28 Ratio (1.60-3.17); Alkaline Phosphatase 70 U/L (41-126); BUN/Creat Ratio 19.15 Ratio (12.00-20.00); Blood Urea Nitrogen 24.9 mg/dL (9.0-27.0); Calcium 10.6 mg/dL (8.7-10.3); Carbon Dioxide 20.9 mmol/L (21.6-31.8); Chloride 107 mmol/L (96-109); Globulin 1.8 g/dL (1.6-3.3); Glucose 133 mg/dL (70-110); Magnesium 1.2 mg/dL (1.5-2.4); Potassium 3.9 mmol/L (3.5-5.5); Sodium 141 mmol/L (135-145); Total Bilirubin 0.6 mg/dL (0.3-1.2); Total Protein 5.9 g/dL (6.2-8.2)
[2023-12-05 16:35] LABS: Basophils # (M) 0 X 10*3/uL (0.00-0.10); HCT 44.2 % (39.6-50.0); HGB 13.4 g/dL (13.0-17.0); MCH 25.7 pg (27.0-32.0); MCHC 30.3 g/dL (32.0-37.0); MCV 84.8 FL (80.0-97.0); NRBC Per 100 WBC 0 X 10*3/uL (0.00-0.01); Platelet Count 117 X 10*3/uL (140-440); RBC 5.21 X 10*6/uL (4.40-5.60); RDW 15.5 % (11.5-14.5); WBC 6.36 X 10*3/uL (4.50-10.00)
[2023-12-05 16:36] LABS: Crenated RBC 2+; Elliptocytes 2+; Eosinophils # (M) 0.06 X 10*3/uL (0.04-0.35); Lymphocytes # (M) 0.83 X 10*3/uL (0.90-5.00); Metamyelocytes % 1 % (0-0); Monocytes # (M) 0.64 X 10*3/uL (0.20-1.00); Neutrophils # (M) 4.77 X 10*3/uL (1.80-7.70); Neutrophils % (M) 75 %
[2023-12-05 16:40] LABS: Erythrocyte Sedimentation Rate 9 mm/Hr (0-20)
== END | disposition home or self-care (01) ==
LOC: LABWHC1 10:22
PROVIDERS: ATTEND Internal Medicine
DX: R19.7 Diarrhea, unspecified (principal)
CPT/HCPCS: 36415; 80053; 83735; 85025; 85652

== ENCOUNTER → 2023-12-17 | Outpatient (CLI) | payer MEDICARE, BC ==
[2023-12-17 11:34] LABS: ALT 22 U/L (10-49); AST 15 U/L (14-35); Albumin 4.2 g/dL (3.8-4.9); Albumin/Globulin Ratio 2.47 Ratio (1.60-3.17); Alkaline Phosphatase 72 U/L (41-126); BUN/Creat Ratio 17.85 Ratio (12.00-20.00); Blood Urea Nitrogen 23.2 mg/dL (9.0-27.0); Calcium 10.2 mg/dL (8.7-10.3); Carbon Dioxide 23.4 mmol/L (21.6-31.8); Chloride 108 mmol/L (96-109); Chol/HDL Ratio 1.84 Ratio; Globulin 1.7 g/dL (1.6-3.3); Glucose 109 mg/dL (70-110); LDL Cholesterol,Calculated 21.4 mg/dL (0.0-131.0); Potassium 4.5 mmol/L (3.5-5.5); Sodium 144 mmol/L (135-145); Total Bilirubin 0.5 mg/dL (0.3-1.2); Total Protein 5.9 g/dL (6.2-8.2)
== END | disposition home or self-care (01) ==
LOC: LABWHC1 07:05
PROVIDERS: ATTEND Internal Medicine Interventional Cardiology
DX: I10 Essential (primary) hypertension (principal); E78.2 Mixed hyperlipidemia
CPT/HCPCS: 36415; 80053; 80061

== ENCOUNTER → 2024-06-30 | Outpatient (CLI) | payer MEDICARE, BC ==
[2024-06-30 20:19] LABS: ALT 37 U/L (10-49); AST 23 U/L (14-35); Albumin 4.2 g/dL (3.8-4.9); Albumin/Globulin Ratio 2.62 Ratio (1.60-3.17); Alkaline Phosphatase 137 U/L (41-126); BUN/Creat Ratio 14.85 Ratio (12.00-20.00); Blood Urea Nitrogen 19.3 mg/dL (9.0-27.0); Calcium 9.8 mg/dL (8.7-10.3); Carbon Dioxide 22.4 mmol/L (21.6-31.8); Chloride 108 mmol/L (96-109); Globulin 1.6 g/dL (1.6-3.3); Glucose 141 mg/dL (70-110); Potassium 4.6 mmol/L (3.5-5.5); Sodium 139 mmol/L (135-145); Total Bilirubin 0.5 mg/dL (0.3-1.2); Total Protein 5.8 g/dL (6.2-8.2)
[2024-06-30 21:32] LABS: Acanthocytes 2+; Basophils # (A) 0.01 X 10*3/uL (0.00-0.10); Basophils % (A) 0.2 %; Elliptocytes 2+; Eosinophils # (A) 0.01 X 10*3/uL (0.04-0.35); Eosinophils % (A) 0.2 %; HCT 47.1 % (39.6-50.0); HGB 14.1 g/dL (13.0-17.0); Lymphocytes # (A) 0.24 X 10*3/uL (0.90-5.00); Lymphocytes % (A) 4.6 %; MCHC 29.9 g/dL (32.0-37.0); MCV 86.7 FL (80.0-97.0); Macrocytosis (M) 2+; Microcytosis (M) 2+; Monocytes # (A) 0.51 X 10*3/uL (0.20-1.00); Monocytes % (A) 9.8 %; NRBC Per 100 WBC 0 X 10*3/uL (0.00-0.01); Neutrophils # (A) 4.37 X 10*3/uL (1.80-7.70); Neutrophils % (A) 83.7 %; Platelet Count 85 X 10*3/uL (140-440); RBC 5.43 X 10*6/uL (4.40-5.60); RDW 15.5 % (11.5-14.5); WBC 5.22 X 10*3/uL (4.50-10.00)
[2024-07-01 04:38] LABS: Parvovirus B-19 IgG Antibodies 0.14 INDEX (<=0.90); Parvovirus B-19 IgM Antibodies 0.21 INDEX (<=0.90)
== END | disposition home or self-care (01) ==
LOC: LABWHC1 14:21
PROVIDERS: ATTEND Internal Medicine
DX: R21 Rash and other nonspecific skin eruption (principal)
CPT/HCPCS: 36415; 80053; 85025; 86160; 86162; 86644; 86645; 86747; 86787

== ENCOUNTER 2024-07-10 09:34 | Inpatient (IN) | payer MEDICARE, BC ==
[2024-07-10] MEDS: ACYCLOVIR SODIUM 650 MG in SODIUM CHLORIDE 0.9% 100 ML IVPB STA (12:39)
[2024-07-10 12:40] LABS: Basophils % (A) 0 %; Eosinophils % (A) 0 %; HCT 45.3 % (39.0-53.0); HGB 13.4 gm/dL (13.0-17.5); Hypochromasia Marked; Lymphocytes # (A) 0.4 k/uL (1.0-4.8); Lymphocytes % (A) 6 %; MCH 26.1 pg (25.0-35.0); MCHC 29.6 g/dL (31.0-37.0); MCV 88.2 fL (80.0-100.0); Mean Platelet Volume 10.8; Monocytes # (A) 0.3 k/uL (0-1.0); Monocytes % (A) 6 %; Neutrophils # (A) 4.8 k/uL (1.3-7.7); Neutrophils % (A) 86 %; RBC 5.14 m/uL (4.30-5.90); WBC 5.5 k/uL (3.8-10.6)
[2024-07-10 12:46] LABS: ALT 34 U/L (4-49); AST 29 U/L (17-59); African American GFR (CKD) 65 (>60 ml/min/1.73 sqM); Albumin 3.5 g/dL (3.5-5.0); Alkaline Phosphatase 100 U/L (38-126); Anion Gap 8 mmol/L; Blood Urea Nitrogen 21 mg/dL (9-20); Calcium 9.3 mg/dL (8.4-10.2); Carbon Dioxide 21 mmol/L (22-30); Chloride 107 mmol/L (98-107); Glucose 138 mg/dL (74-99); Non-African American GFR(CKD) 56 (>60 ml/min/1.73 sqM); Potassium 4.2 mmol/L (3.5-5.1); Sodium 136 mmol/L (137-145); Total Bilirubin 0.6 mg/dL (0.2-1.3); Total Protein 5.6 g/dL (6.3-8.2)
[2024-07-10 12:56] LABS: INR 1.2 (<1.2); Partial Thromboplastin Time 32.7 sec (22.0-30.0); Prothrombin Time 12.6 sec (10.0-12.5)
[2024-07-10 12:59] LABS: Platelet Count 94 k/uL (150-450)
[2024-07-10 13:00] LABS: Ovalocytes Present; Poikilocytosis (M) Present
[2024-07-10] MEDS ORDERED: NALOXONE 0.4 MG/ML 1 ML VIAL IV PRN (13:23)
--- NOTE | 2024-07-10 13:23 | ED ---
General Adult HPI - General Chief complaint: Skin/Abscess/Foreign Body Stated complaint: poss shingles/temperature Time Seen by Provider: 07/10/24 09:56 Source: patient, RN notes reviewed Mode of arrival: ambulatory Limitations: no limitations - History of Present Illness Initial comments: Patient is a 60-year-old male present emergency department with concern for shingles. Patient states he has been having a rash for the past approximately 10 days. Patient was seen by his doctor. Patient was sent to dermatology who did a biopsy and reported to him today that it was positive for shingles and to go to the hospital. Patient states there is mild discomfort. Patient states that started on the 1 side of the face and then has progressed since that time. Patient states he has had some fatigue and did have a fever this morning. Patient does have history of renal transplant and is on antirejection medication. - Related Data Home Medications Medication Instructions Recorded Confirmed amLODIPine BESYLATE [Norvasc] 5 mg PO DAILY 01/02/18 04/12/20 Tamsulosin [Flomax] 0.4 mg PO DAILY 04/01/19 04/12/20 Brimonidine/Dorzolamide/Pf 1 drop LEFT EYE DAILY 04/28/19 04/12/20 [Brimonidine 0.15%-Dorzolam 2%] Furosemide [Lasix] 80 mg PO BID@0900,1600 04/28/19 04/12/20 Nitroglycerin Sl Tabs [Nitrostat] 0.4 mg SUBLINGUAL Q5M PRN 04/28/19 04/12/20 Aspirin [Adult Low Dose Aspirin EC] 81 mg PO DAILY 04/12/20 04/12/20 Atorvastatin [Lipitor] 40 mg PO DAILY 04/12/20 04/12/20 Calcium Acetate [Phoslo] 667 mg PO AC-TID 04/12/20 04/12/20 Metoprolol Tartrate [Lopressor] 25 mg PO BID 04/12/20 04/12/20 Previous Rx's Medication Instructions Recorded Apixaban [Eliquis] 2.5 mg PO BID #60 tab 04/18/19 Albuterol Sulfate [Proventil Hfa] 1 - 2 puff INHALATION Q6HR PRN #1 05/02/19 inhaler Allergies Allergy/AdvReac Type Severity Reaction Status Date / Time No Known Allergies Allergy Verified 07/10/24 09:47 Review of Systems ROS Statement: Those systems with pertinent positive or pertinent negative responses have been documented in the HPI. ROS Other: All systems not noted in ROS Statement are negative. Constitutional: Reports: as per HPI, fever Eyes: Denies: eye pain ENT: Denies: ear pain Respiratory: Denies: cough Cardiovascular: Denies: chest pain Endocrine: Reports: fatigue Gastrointestinal: Denies: abdominal pain Genitourinary: Denies: dysuria Musculoskeletal: Denies: back pain Past Medical History Past Medical History: Coronary Artery Disease (CAD), Hyperlipidemia, Hypertension, Renal Disease Additional Past Medical History / Comment(s): AV Fistula on left arm. History of Any Multi-Drug Resistant Organisms: None Reported Past Surgical History: Heart Catheterization, Heart Catheterization With Stent Additional Past Surgical History / Comment(s): AV Fistula on left arm. Past Anesthesia/Blood Transfusion Reactions: No Reported Reaction Additional Past Anesthesia/Blood Transfusion Reaction / Comment(s): Pt received blood years ago with his stomach ulcer bleed-no reaction. Date of Last Stent Placement:: 05/2018 Past Psychological History: No Psychological Hx Reported Smoking Status: Former smoker Past Alcohol Use History: None Reported Past Drug Use History: None Reported - Past Family History Father Family Medical History: Asthma Additional Family Medical History / Comment(s): Father at the age of 64yrs. Mother Family Medical History: Hypertension, Myocardial Infarction ([place]) Additional Family Medical History / Comment(s): Mother had a [place] sometime prior to age 60yrs. She is 86yrs old. Stent Brother(s) Family Medical History: No Reported History Sister(s) Family Medical History: No Reported History Son(s) Family Medical History: No Reported History Daughter(s) Family Medical History: No Reported History General Exam Limitations: no limitations General appearance: alert, in no apparent distress Head exam: Present: atraumatic Eye exam: Present: normal appearance ENT exam: Present: normal oropharynx Neck exam: Present: normal inspection Respiratory exam: Present: normal lung sounds bilaterally Cardiovascular Exam: Present: regular rate, normal rhythm GI/Abdominal exam: Present: soft. Absent: tenderness Extremities exam: Present: normal inspection Neurological exam: Present: alert Psychiatric exam: Present: normal affect, normal mood Skin exam: Present: other (Diffuse maculopapular rash including the face and scalp and trunk and most of upper extremities with lesions of different size and healing. There is some vesicular lesions and some near pustular type lesions w ith erythematous bases) Course Vital Signs 07/10/24 07/10/24 07/10/24 09:48 10:47 11:00 Temperature 98.2 F Pulse Rate 81 65 65 Respiratory 20 18 20 Rate Blood Pressure 127/65 120/60 120/60 O2 Sat by Pulse 99 98 98 Oximetry 07/10/24 11:36 Temperature Pulse Rate Respiratory 20 Rate Blood Pressure O2 Sat by Pulse Oximetry Medical Decision Making - Medical Decision Making Was pt. sent in by a medical professional or institution (, PA, [employer], urgent care, hospital, or jail...) When possible be specific @ -Patient was sent in from Dr. Farias office Did you speak to anyone other than the patient for history (EMS, parent, family, police, friend...)? What history was obtained from this source @ -No Did you review nursing and triage notes (agree or disagree)? Why? @ -I reviewed and agree with nursing and triage notes Were old charts reviewed (outside hosp., previous admission, EMS record, old EKG, old radiological studies, urgent care reports/EKG's, jail records)? Report findings @ -No old charts were reviewed Differential Diagnosis (chest pain, altered mental status, abdominal pain women, abdominal pain men, vaginal bleeding, weakness, fever, dyspnea, syncope, headache, dizziness, GI bleed, back pain, seizure, CVA, palpatations, mental health, musculoskeletal)? @ -Differential Fever: Pneumonia, viral URI, endocarditis, myocarditis, pericarditis, otitis, sinusitis, peritonsillar Abscess, retropharyngeal Abscess, epiglottitis, peritonitis, appendicitis, Bessie cystitis, diverticulitis, hepatitis, colitis, UTI, PID, TOA, pyelonephritis, prostatitis, epididymitis, meningitis, encephalitis, pulmonary embolism, CVA, thyroid storm, pancreatitis, adrenal crisis, cavernous sinus thrombosis, this is not meant to be an all-inclusive list. EKG interpreted by me (3pts min.). @ -As above X-rays interpreted by me (1pt min.). @ -None done CT interpreted by me (1pt min.). @ -None done U/S interpreted by me (1pt. min.). @ -None done What testing was considered but not performed or refused? (CT, X-rays, U/S, labs)? Why? @ -None What meds were considered but not given or refused? Why? @ -None Did you discuss the management of the patient with other professionals (professionals i.e. Dr., PA, [employer], lab, RT, psych nurse, social and political studies professor, radiology aide, teacher, education officer, rn case manager)? Give summary @ -Case was discussed with Dr. Tran. Case was also discussed with Dr. Rodrick Jaquez who works with patient's transplant surgeon. He states patient should be admitted here with IV antivirals as well as consults with infectious disease and nephrology. He states they can be called for further r ecommendations or possible transfer if needed in the future Was smoking cessation discussed for >3mins.? @ -No Was critical care preformed (if so, how long)? @ -31 minutes critical care Were there social determinants of health that impacted care today? How? (Homelessness, low income, unemployed, alcoholism, drug addiction, transportation, low edu. Level, literacy, decrease access to med. care, [facility], rehab)? @ -No Was there de-escalation of care discussed even if they declined (Discuss DNR or withdrawal of care, Hospice)? DNR status @ -No What co-morbidities impacted this encounter? (DM, HTN, Smoking, COPD, CAD, Cancer, CVA, ARF, Chemo, Hep., AIDS, mental health diagnosis, sleep apnea, mo rbid obesity)? @ -History of renal transplant and antirejection medication Was patient admitted / discharged? Hospital course, mention meds given and route, prescriptions, significant lab abnormalities, going to OR and other pertinent info. @ -Patient presents with diffuse rash concerning for disseminated varicella. Patient had IgG positive in the office however IgM was negative. Biopsy was po sitive for herpes zoster and patient recommended come to emergency department. Patient will be admitted with IV antivirals and consults. Admission orders written. Undiagnosed new problem with uncertain prognosis? @ -No Drug Therapy requiring intensive monitoring for toxicity (Heparin, Nitro, Insu nir, Cardizem)? @ -No Were any procedures done? @ -No Diagnosis/symptom? @ -Disseminated zoster Acute, or Chronic, or Acute on Chronic? @ -Acute Uncomplicated (without systemic symptoms) or Complicated (systemic symptoms)? @ -Default Side effects of treatment? @ -No Exacerbation, Progression, or Severe Exacerbation? @ -No Poses a threat to life or bodily function? How? (Chest pain, [place], [place], pneumonia, PE, COPD, DKA, ARF, appy, cholecystitis, CVA, Diverticulitis, Homicidal, Suicidal, threat to staff... and all critical care pts) @ -Threat to multiple organs - Lab Data Result diagrams: 07/10/24 11:28 07/10/24 11: Lab Results 07/10/24 07/10/24 07/10/24 Range/Units 11:28 11: 11:28 WBC 5.5 (3.8-10.6) k/uL RBC 5.14 (4.30-5.90) m/uL Hgb 13.4 (13.0-17.5) gm/dL Hct 45.3 (39.0-53.0) % MCV 88.2 (80.0-100.0) fL MCH 26.1 (25.0-35.0) pg MCHC 29.6 L (31.0-37.0) g/dL RDW 15.0 (11.5-15.5) % Plt Count 94 L (150-450) k/uL MPV 10.8 Neutrophils % 86 % Lymphocytes % 6 % Monocytes % 6 % Eosinophils % 0 % Basophils % 0 % Neutrophils # 4.8 (1.3-7.7) k/uL Lymphocytes # 0.4 L (1.0-4.8) k/uL Monocytes # 0.3 (0-1.0) k/uL Eosinophils # 0.0 (0-0.7) k/uL Basophils # 0.0 (0-0.2) k/uL Manual Slide Review Performed Hypochromasia Marked Poikilocytosis (manual Present Ovalocytes Present PT 12.6 H (10.0-12.5) sec INR 1.2 H (<1.2) APTT 32.7 H (22.0-30.0) sec Sodium 136 L (137-145) mmol/L Potassium 4.2 (3.5-5.1) mmol/L Chloride 107 (98-107) mmol/L Carbon Dioxide 21 L (22-30) mmol/L Anion Gap 8 mmol/L BUN 21 H (9-20) mg/dL Creatinine 1.30 H (0.66-1.25) mg/dL Est GFR (CKD-EPI)AfAm 65 (>60 ml/min/1.73 sqM) Est GFR (CKD-EPI)NonAf 56 (>60 ml/min/1.73 sqM) Glucose 138 H (74-99) mg/dL Plasma Lactic Acid Zac (0.7-2.0) mmol/L Calcium 9.3 (8.4-10.2) mg/dL Total Bilirubin 0.6 (0.2-1.3) mg/dL AST 29 (17-59) U/L ALT 34 (4-49) U/L Alkaline Phosphatase 100 (38-126) U/L Total Protein 5.6 L (6.3-8.2) g/dL Albumin 3.5 (3.5-5.0) g/dL 07/10/24 Range/Units 11:28 WBC (3.8-10.6) k/uL RBC (4.30-5.90) m/uL Hgb (13.0-17.5) gm/dL Hct (39.0-53.0) % MCV (80.0-100.0) fL MCH (25.0-35.0) pg MCHC (31.0-37.0) g/dL RDW (11.5-15.5) % Plt Count (150-450) k/uL MPV Neutrophils % % Lymphocytes % % Monocytes % % Eosinophils % % Basophils % % Neutrophils # (1.3-7.7) k/uL Lymphocytes # (1.0-4.8) k/uL Monocytes # (0-1.0) k/uL Eosinophils # (0-0.7) k/uL Basophils # (0-0.2) k/uL Manual Slide Review Hypochromasia Poikilocytosis (manual Ovalocytes PT (10.0-12.5) sec INR (<1.2) APTT (22.0-30.0) sec Sodium (137-145) mmol/L Potassium (3.5-5.1) mmol/L Chloride (98-107) mmol/L Carbon Dioxide (22-30) mmol/L Anion Gap mmol/L BUN (9-20) mg/dL Creatinine (0.66-1.25) mg/dL Est GFR (CKD-EPI)AfAm (>60 ml/min/1.73 sqM) Est GFR (CKD-EPI)NonAf (>60 ml/min/1.73 sqM) Glucose (74-99) mg/dL Plasma Lactic Acid Zac 1.8 (0.7-2.0) mmol/L Calcium (8.4-10.2) mg/dL Total Bilirubin (0.2-1.3) mg/dL AST (17-59) U/L ALT (4-49) U/L Alkaline Phosphatase (38-126) U/L Total Protein (6.3-8.2) g/dL Albumin (3.5-5.0) g/dL Disposition Clinical Impression: Disseminated zoster Disposition: ADMITTED IP TO THIS [facility] Condition: Serious Is patient prescribed a controlled substance at d/c from ED?: No Referrals: Estrellita Bains MD [Primary Care Provider] - 1-2 days Time of Disposition: 13:23
[2024-07-10] MEDS ORDERED: MORPHINE SULFATE 4 MG/ML SYRINGE IV PRN (13:35)
[2024-07-10] MEDS: SODIUM CHLORIDE 0.9% 1,000 ML IV SCH (14:13)
[2024-07-10] MEDS ORDERED: NITROGLYCERIN SL TABS 0.4 MG TAB SUBLINGUAL PRN (18:00)
[2024-07-10] MEDS: APIXABAN 5 MG TAB PO SCH (20:14)
[2024-07-10] MEDS: METOPROLOL TARTRATE 50 MG TAB PO SCH (20:14)
[2024-07-10] MEDS: ACYCLOVIR SODIUM 650 MG in SODIUM CHLORIDE 0.9% 100 ML IVPB SCH (20:14)
[2024-07-10] MEDS: FAMOTIDINE 20 MG TAB PO SCH (20:14)
[2024-07-10] MEDS: TACROLIMUS 1 MG CAP PO SCH (20:15)
--- NOTE | 2024-07-11 07:54 | P.CONS ---
History of Present Illness - Reason for Consult Consult date: 07/10/24 Disseminated herpes zoster Requesting physician: Gordo Oh - Chief Complaint Rash x 2 weeks - History of Present Illness Patient is a 68-year-old male with a past medical history significant for coronary disease hypertension hyperlipidemia end-stage renal disease in this patient who is status post renal transplant and is currently on immunosuppressive medication patient started having a rash that initially started on his forehead about a week or 10 days ago and subsequently the rash spread to the face and rest of his body for the patient has been evaluated by dermatology and the patient did have a biopsy done from one of the lesion on the abdomen and he was told it came back for shingles he was started on oral Valtrex patient has taken about 2 doses and subsequent advised to go to the hospital because of worsening rash patient denies having any fever or any chills and no fever have been recorded on presentation to the hospital denies any headache or URI symptoms no chest pain shortness of breath or cough no nausea vomiting no abdominal pain or diarrhea has been complaining of mostly rash which seem to be slight crusting on the facial area but rash on the trunk is mostly vesicular with some pustular but no purulent drainage and no urinary symptoms. Patient did have white count of 5.5 creatinine is 1.30 liver isms are normal patient was started on acyclovir infectious disease was consulted for further management Review of Systems Positive point and negatives has been mentioned in the HPI, complete review of systems was performed and all other systems are negative Past Medical History Past Medical History: Coronary Artery Disease (CAD), Hyperlipidemia, Hypertension, Renal Disease Additional Past Medical History / Comment(s): AV Fistula on left arm. History of Any Multi-Drug Resistant Organisms: None Reported Past Surgical History: Heart Catheterization, Heart Catheterization With Stent Additional Past Surgical History / Comment(s): AV Fistula on left arm. Past Anesthesia/Blood Transfusion Reactions: No Reported Reaction Additional Past Anesthesia/Blood Transfusion Reaction / Comm: Pt received blood years ago with his stomach ulcer bleed-no reaction. Date of Last Stent Placement:: 05/2018 Past Psychological History: No Psychological Hx Reported Smoking Status: Former smoker Past Alcohol Use History: None Reported Past Drug Use History: None Reported - Past Family History Father Family Medical History: Asthma Additional Family Medical History / Comment(s): Father at the age of 64yrs. Mother Family Medical History: Hypertension, Myocardial Infarction ([place]) Additional Family Medical History / Comment(s): Mother had a [place] sometime prior to age 60yrs. She is 86yrs old. Stent Brother(s) Family Medical History: No Reported History Sister(s) Family Medical History: No Reported History Son(s) Family Medical History: No Reported History Daughter(s) Family Medical History: No Reported History Medications and Allergies Home Medications Medication Instructions Recorded Confirmed Type Tamsulosin [Flomax] 0.4 mg PO DAILY 04/01/19 07/10/24 History Nitroglycerin Sl Tabs [Nitrostat] 0.4 mg SUBLINGUAL Q5M PRN 04/28/19 07/10/24 History Aspirin [Adult Low Dose Aspirin EC] 81 mg PO DAILY 04/12/20 07/10/24 History Atorvastatin [Lipitor] 40 mg PO DAILY 04/12/20 07/10/24 History Apixaban [Eliquis] 5 mg PO BID 07/10/24 07/10/24 History Brimonidine Tartrate [Alphagan P 1 drop LEFT EYE DAILY 07/10/24 07/10/24 History 0.2% Ophth Soln] Cholecalciferol [Vitamin D3 (125 125 mcg PO DAILY 07/10/24 07/10/24 History Mcg = 5000 Iu)] Famotidine [Pepcid] 20 mg PO BID 07/10/24 07/10/24 History Magnesium 500 mg PO DAILY 07/10/24 07/10/24 History Metoprolol Tartrate [Lopressor] 50 mg PO BID 07/10/24 07/10/24 History Tacrolimus [Prograf] 2 mg PO BID 07/10/24 07/10/24 History amLODIPine [Norvasc] 10 mg PO DAILY 07/10/24 07/10/24 History mycophenolate mofetiL [Cellcept] 1,000 mg PO BID 07/10/24 07/10/24 History predniSONE 5 mg PO DAILY 07/10/24 07/10/24 History valACYclovir HCL [Valacyclovir] 1,000 mg PO TID 07/10/24 07/10/24 History Allergies Allergy/AdvReac Type Severity Reaction Status Date / Time No Known Allergies Allergy Verified 07/10/24 15:42 Physical Exam Vitals: Vital Signs Temp Pulse Resp BP Pulse Ox 07/10/24 11:36 20 07/10/24 11:00 65 20 120/60 98 07/10/24 10:47 65 18 120/60 98 07/10/24 09:48 98.2 F 81 20 127/65 99 Intake and Output 07/09/24 07/10/24 07/10/24 22:59 06:59 14:59 Other: Weight 63.503 kg GENERAL DESCRIPTION: Elderly male up in the chair, no distress. No tachypnea or accessory muscle of respiration use. HEENT: Shows Pallor , no scleral icterus. Oral mucous membrane is dry. No pharyngeal erythema or thrush NECK: Trachea central, no thyromegaly. LUNGS: Unlabored breathing. Clear to auscultation anteriorly. No wheeze or crackle. HEART: S1, S2, regular rate and rhythm. No loud murmur ABDOMEN: Soft, no tenderness , guarding or rigidity, no organomegaly EXTREMITIES: No edema of feet. SKIN: Patient did have diffuse maculopapular rash rash to the face seem to be drying out he did have some pustules to the chest swab has been obtained NEUROLOGICAL: The patient is awake, alert, oriented x3, mood and affect normal. Results CBC & Chem 7: 07/10/24 11:28 07/10/24 11:28 Labs: Abnormal Lab Results - Last 24 Hours (Table) 07/10/24 07/10/24 07/10/24 Range/Units 11:28 11:28 11:28 MCHC 29.6 L (31.0-37.0) g/dL Plt Count 94 L (150-450) k/uL Lymphocytes # 0.4 L (1.0-4.8) k/uL PT 12.6 H (10.0-12.5) sec INR 1.2 H (<1.2) APTT 32.7 H (22.0-30.0) sec Sodium 136 L (137-145) mmol/L Carbon Dioxide 21 L (22-30) mmol/L BUN 21 H (9-20) mg/dL Creatinine 1.30 H (0.66-1.25) mg/dL Glucose 138 H (74-99) mg/dL Total Protein 5.6 L (6.3-8.2) g/dL Assessment and Plan (1) Rash Current Visit: Yes Status: Acute Code(s): R21 - RASH AND OTHER NONSPECIFIC SKIN ERUPTION SNOMED Code(s): 631003499 (2) Disseminated zoster Current Visit: Yes Status: Acute Code(s): B02.7 - DISSEMINATED ZOSTER SNOMED Code(s): 87686933 Plan: 1patient presented to hospital with generalized rash which is mostly vesicular/ pustular crusting on the facial area and did have a biopsy done by the visual basic developer and reported positive for herpes zoster we will try to obtain the biopsy report. 2patient did have 2 vesicular/pustular lesion on the trunk from which swab was obtained and sent for VZV PCR. 3acyclovir 10 mg/kg every 8 hour while watching his kidney function closely. 4Airborne isolation/negative pressure room We will follow on clinical condition and cultures to further adjust medication if needed Thank you for this consultation we will follow the patient along with you Dictation was produced using [employer] dictation software. please excuse any grammatical, word or spelling errors. Time with Patient: Greater than 30
[2024-07-11 09:39] LABS: Basophils # (A) 0.02 X 10*3/uL (0.00-0.10); Basophils % (A) 0.4 %; Eosinophils # (A) 0.03 X 10*3/uL (0.04-0.35); Eosinophils % (A) 0.6 %; HCT 40.1 % (39.6-50.0); HGB 12.3 g/dL (13.0-17.0); Lymphocytes # (A) 0.43 X 10*3/uL (0.90-5.00); Lymphocytes % (A) 8.3 %; MCH 26.5 pg (27.0-32.0); MCHC 30.7 g/dL (32.0-37.0); MCV 86.2 FL (80.0-97.0); Monocytes # (A) 0.58 X 10*3/uL (0.20-1.00); Monocytes % (A) 11.2 %; NRBC Per 100 WBC 0 X 10*3/uL (0.00-0.01); Neutrophils # (A) 4.04 X 10*3/uL (1.80-7.70); Platelet Count 90 X 10*3/uL (140-440); RBC 4.65 X 10*6/uL (4.40-5.60); RDW 14.9 % (11.5-14.5); WBC 5.18 X 10*3/uL (4.50-10.00)
--- NOTE | 2024-07-11 10:25 | P.NPCON ---
History of Present Illness - Reason for Consult chronic renal failure - History of Present Illness Reason for consultation: Renal transplant management History of present illness: Patient is a 68-year-old male seen in renal consultation for renal transplant management. Patient received a donor renal transplant in 2021 at [facility]. He is maintained on Prograf 2 mg twice daily, CellCept 1 g twice daily and prednisone 5 mg for his immunosuppression medications. Patient states he developed a rash which she noticed a little over a week ago on his forehead. Patient states the rash subsequently spread to his face and was to the body. Patient states he saw dermatology and had a biopsy done and was told to come to the hospital for further treatment of acute shingles infection. He is currently receiving IV acyclovir and is being followed by infectious disease. He admits to good urine output. No hematuria or dysuria. No chest pain or shortness of breath. No edema. No vomiting or diarrhea. No fever or chills. Vital signs are stable. General: No acute distress. HEENT: Head exam is unremarkable. LUNGS: No audible rhonchi or wheezes. HEART: Rate and Rhythm are regular. ABDOMEN: Nontender. EXTREMITITES: No edema. Generalized rash noted. No drainage. Past Medical History Past Medical History: Coronary Artery Disease (CAD), Hyperlipidemia, Hypertension, Renal Disease Additional Past Medical History / Comment(s): AV Fistula on left arm. History of Any Multi-Drug Resistant Organisms: None Reported Past Surgical History: Heart Catheterization, Heart Catheterization With Stent Additional Past Surgical History / Comment(s): AV Fistula on left arm. Past Anesthesia/Blood Transfusion Reactions: No Reported Reaction Additional Past Anesthesia/Blood Transfusion Reaction / Comment(s): Pt received blood years ago with his stomach ulcer bleed-no reaction. Date of Last Stent Placement:: 05/2018 Past Psychological History: No Psychological Hx Reported Smoking Status: Former smoker Past Alcohol Use History: None Reported Past Drug Use History: None Reported - Past Family History Father Family Medical History: Asthma Additional Family Medical History / Comment(s): Father at the age of 64yrs. Mother Family Medical History: Hypertension, Myocardial Infarction ([place]) Additional Family Medical History / Comment(s): Mother had a [place] sometime prior to age 60yrs. She is 86yrs old. Stent Brother(s) Family Medical History: No Reported History Sister(s) Family Medical History: No Reported History Son(s) Family Medical History: No Reported History Daughter(s) Family Medical History: No Reported History Medications and Allergies Home Medications Medication Instructions Recorded Confirmed Type Tamsulosin [Flomax] 0.4 mg PO DAILY 04/01/19 07/10/24 History Nitroglycerin Sl Tabs [Nitrostat] 0.4 mg SUBLINGUAL Q5M PRN 04/28/19 07/10/24 History Aspirin [Adult Low Dose Aspirin EC] 81 mg PO DAILY 04/12/20 07/10/24 History Atorvastatin [Lipitor] 40 mg PO DAILY 04/12/20 07/10/24 History Apixaban [Eliquis] 5 mg PO BID 07/10/24 07/10/24 History Brimonidine Tartrate [Alphagan P 1 drop LEFT EYE DAILY 07/10/24 07/10/24 History 0.2% Ophth Soln] Cholecalciferol [Vitamin D3 (125 125 mcg PO DAILY 07/10/24 07/10/24 History Mcg = 5000 Iu)] Famotidine [Pepcid] 20 mg PO BID 07/10/24 07/10/24 History Magnesium 500 mg PO DAILY 07/10/24 07/10/24 History Metoprolol Tartrate [Lopressor] 50 mg PO BID 07/10/24 07/10/24 History Tacrolimus [Prograf] 2 mg PO BID 07/10/24 07/10/24 History amLODIPine [Norvasc] 10 mg PO DAILY 07/10/24 07/10/24 History mycophenolate mofetiL [Cellcept] 1,000 mg PO BID 07/10/24 07/10/24 History predniSONE 5 mg PO DAILY 07/10/24 07/10/24 History valACYclovir HCL [Valacyclovir] 1,000 mg PO TID 07/10/24 07/10/24 History Allergies Allergy/AdvReac Type Severity Reaction Status Date / Time No Known Allergies Allergy Verified 07/10/24 15:42 Physical Exam Vitals: Vital Signs Temp Pulse Resp BP Pulse Ox 07/11/24 05:25 64 18 152/70 100 07/11/24 00:33 78 16 156/74 99 07/10/24 20:22 97.6 F 68 18 155/81 99 07/10/24 18:00 68 16 146/70 98 07/10/24 17:00 73 20 140/60 98 07/10/24 16:09 97.7 F 72 16 144/68 100 07/10/24 15:00 97.7 F 68 16 137/60 96 07/10/24 14:00 78 20 126/66 98 07/10/24 12:00 68 18 120/59 96 07/10/24 11:36 20 07/10/24 11:00 65 20 120/60 98 07/10/24 10:47 65 18 120/60 98 Results - Lab Results Most recent lab results Calcium 9.3 mg/dL (8.4-10.2) 07/10/24 11:28 07/11/24 06:17 07/10/24 11:28 Assessment and Plan Plan: Assessment: 1. Status post donor renal transplant in 2021 at [facility]. 2. Disseminated zoster infection maintained on IV acyclovir. ID following. 3. Chronic kidney disease stage IIIa with baseline creatinine near 1.3. Etiology is use of calcineurin admitted and solitary kidney. 4. Hypertension with chronic kidney disease. Plan: Hep-Lock IV fluids. Maintain Prograf and prednisone. Decrease dose of CellCept to 500 mg twice daily. Avoid nephrotoxins. Check a.m. Prograf level. Thank you for the consultation. I will continue to follow the patient with you during his hospital stay.
[2024-07-11 10:30] LABS: ALT 40 U/L (10-49); AST 29 U/L (14-35); Albumin 3.4 g/dL (3.8-4.9); Albumin/Globulin Ratio 2.43 Ratio (1.60-3.17); Alkaline Phosphatase 102 U/L (41-126); BUN/Creat Ratio 14.75 Ratio (12.00-20.00); Blood Urea Nitrogen 17.7 mg/dL (9.0-27.0); Calcium 9.3 mg/dL (8.7-10.3); Carbon Dioxide 19.1 mmol/L (21.6-31.8); Chloride 109 mmol/L (96-109); Globulin 1.4 g/dL (1.6-3.3); Glucose 102 mg/dL (70-110); Potassium 4.1 mmol/L (3.5-5.5); Sodium 139 mmol/L (135-145); Total Bilirubin 0.5 mg/dL (0.3-1.2); Total Protein 4.8 g/dL (6.2-8.2)
[2024-07-11 11:18] LABS: Varicella zoster Virus by PCR DETECTED (Not detected)
[2024-07-11] MEDS: ATORVASTATIN 40 MG TAB PO SCH (11:53)
[2024-07-11] MEDS: amLODIPine 10 MG TAB PO SCH (11:53)
[2024-07-11] MEDS: ASPIRIN 81 MG PO SCH (11:53)
[2024-07-11] MEDS: CHOLECALCIFEROL 125 MCG (5000 IU) TABLET PO SCH (11:53)
[2024-07-11] MEDS: BRIMONIDINE TARTRATE 0.2% DROPS 5 ML BTL LEFT EYE SCH (11:53)
[2024-07-11] MEDS: TAMSULOSIN 0.4 MG CAP.ER.24H PO SCH (11:54)
--- NOTE | 2024-07-11 11:56 | P.PN ---
Subjective Progress Note Date: 07/11/24 Principal diagnosis: Reason for follow-up is disseminated shingles Patient is a 68-year-old male with a past medical history significant for coronary disease hypertension hyperlipidemia end-stage renal disease in this patient who is status post renal transplant and is currently on immunosuppressive medication presenting the hospital with disseminated rash with outpatient biopsy suspicious for shingles. On today's evaluation that is 07/11/2024, Patient is afebrile patient is currently on room air and denies having any shortness of breath, the patient denies any chest pain or cough, the patient denies any nausea vomiting did not have any abdominal pain and no diarrhea, no new rash has been noticed. The patient white count is 5.18, creatinine is 1.2 VZV DNA PCR came back positive from the lesion that was done yesterday Objective - Vital Signs Vital signs: Vital Signs Temp 97.6 F 07/10/24 20:22 Pulse 74 07/11/24 11:46 Resp 18 07/11/24 11:46 BP 141/76 07/11/24 11:46 Pulse Ox 100 07/11/24 11:46 FiO2 Intake & Output 07/10/24 07/11/24 07/11/24 18:59 06:59 18:59 Weight 63.503 kg - Exam GENERAL DESCRIPTION: An elderly male up in bed in no distress RESPIRATORY SYSTEM: Unlabored breathing , decreased breath sounds at bases HEART: S1 S2 regular rate and rhythm , ABDOMEN: Soft , no tenderness EXTREMITIES: No edema feet SKIN: Disseminated rash which is mostly crusting no new rash was noticed - Labs CBC & Chem 7: 07/11/24 06:17 07/11/24 06:17 Labs: Abnormal Lab Results - Last 24 Hours (Table) 07/10/24 07/10/24 07/10/24 Range/Units 11:28 11:28 11:28 Hgb (13.0-17.0) g/dL MCH (27.0-32.0) pg MCHC 29.6 L (31.0-37.0) g/dL RDW (11.5-14.5) % Plt Count 94 L (150-450) k/uL Immature Gran # (0.00-0.04) X 10*3/uL Lymphocytes # 0.4 L (1.0-4.8) k/uL Eosinophils # (0.04-0.35) X 10*3/uL PT 12.6 H (10.0-12.5) sec INR 1.2 H (<1.2) APTT 32.7 H (22.0-30.0) sec Sodium 136 L (137-145) mmol/L Carbon Dioxide 21 L (22-30) mmol/L BUN 21 H (9-20) mg/dL Creatinine 1.30 H (0.66-1.25) mg/dL Glucose 138 H (74-99) mg/dL Total Protein 5.6 L (6.3-8.2) g/dL Albumin (3.8-4.9) g/dL Globulin (1.6-3.3) g/dL VZV DNA (PCR) (Not detected) 07/10/24 07/11/24 07/11/24 Range/Units 14:14 06:17 06:17 Hgb 12.3 L (13.0-17.0) g/dL MCH 26.5 L (27.0-32.0) pg MCHC 30.7 L (31.0-37.0) g/dL RDW 14.9 H (11.5-14.5) % Plt Count 90 L (150-450) k/uL Immature Gran # 0.08 H (0.00-0.04) X 10*3/uL Lymphocytes # 0.43 L (1.0-4.8) k/uL Eosinophils # 0.03 L (0.04-0.35) X 10*3/uL PT (10.0-12.5) sec INR (<1.2) APTT (22.0-30.0) sec Sodium (137-145) mmol/L Carbon Dioxide 19.1 L (22-30) mmol/L BUN (9-20) mg/dL Creatinine (0.66-1.25) mg/dL Glucose (74-99) mg/dL Total Protein 4.8 L (6.3-8.2) g/dL Albumin 3.4 L (3.8-4.9) g/dL Globulin 1.4 L (1.6-3.3) g/dL VZV DNA (PCR) DETECTED A (Not detected) Assessment and Plan (1) Rash Current Visit: Yes Status: Acute Code(s): R21 - RASH AND OTHER NONSPECIFIC SKIN ERUPTION SNOMED Code(s): 606937166 (2) Disseminated zoster Current Visit: Yes Status: Acute Code(s): B02.7 - DISSEMINATED ZOSTER SNOMED Code(s): 90900625 Plan: 1patient presented to hospital with generalized rash which is mostly vesicular/pustular crusting on the facial area and did have a biopsy done by the job service consultant and reported positive for herpes zoster. 2patient did have swab obtained from the lesion which came back positive for VZV confirming the diagnosis 3patient has been advised acyclovir 10 mg/kg every 8 hour and will watching his kidney function closely. 4Airborne isolation/negative pressure room Dictation was produced using [employer] dictation software. please excuse any grammatical, word or spelling errors. Time with Patient: Less than 30
--- NOTE | 2024-07-11 11:56 | P.HPIM ---
History of Present Illness H&P Date: 07/10/24 Chief Complaint: Disseminated zoster in immunosuppressed host HISTORY OF PRESENT ILLNESS: This is a 68-year-old male with a previous medical history significant for coronary artery disease status post PCI of the proximal obtuse marginal 1, LAD, and mid RCA 05/08/2018 history of hypertension and hypertensive cardiovascular disease, hyperlipidemia, history of end-stage renal disease on hemodialysis received a renal transplant at [facility] 07/22/2022, patient has been under the care of the transplant on regular basis, history of prediabetes, paroxysmal atrial fibrillation, enlarged prostate, glaucoma, as well, patient has been doing fine up till recently when he came to the office on June 30, 2024 when he developed to have a significant vesicular eruptions in his upper extremities as well as his abdomen nothing on his legs, at that time a viral panel was done, initially the varicella-zoster virus came back positive for IgG, however the IgM index was positive at 0.94 normal is up to 0.9 it was recommended to repeat the titers I have recommended to send the labs to the transplant team at [facility] for further evaluation recommendation, patient ended up going to dermatology had a biopsy that came back positive for varicella-zoster virus patient does have worsening of the rash all over his body he was seen in the emergency department at [facility] it was recommended for the patient to be transferred to [facility] but the patient ended up staying in the hospital he will be seen in consultation by infectious disease as well as by nephrology, he will be started on IV acyclovir for further evaluation and treatment. REVIEW OF SYSTEMS: Constitutional: No documented fever, no chills, no night sweats. No weight change. No weakness, fatigue or lethargy. No daytime sleepiness. EENT: No headache. No blurred vision or double vision, no loss of vision. No loss of Hearing, no ringing in the ears, no dizziness. No nasal drainage or congestion. No epistaxis. No sore throat. Lungs: No shortness of breath, no cough, no sputum production. No wheezing. Reports dyspnea with activity. Cardiovascular: No chest pain, no lower extremity edema. No palpitations. No paroxysmal nocturnal dyspnea. No orthopnea. No lightheadedness or dizziness. No syncopal episodes. Abdominal: Reports abdominal pain. No nausea, vomiting. No diarrhea. No constipation. No bloody or tarry stools reports loss of appetite. Genitourinary: No dysuria, increased frequency, urgency. No urinary retention. Musculoskeletal: No myalgias. No muscle weakness, no gait dysfunction, no frequent falls. No back pain. No neck pain. Integumentary: No wounds, no lesions. Positive for diffuse disseminated vesicular eruptions on his face upper extremities lower extremities and chest abdomen and torso. Neurologic: No aphasia. No facial droop. No change in mentation. No head injury. No headache. No paralysis. No paresthesia. Psychiatric: No depression. No anxiety. No mood swings. Endocrine: No abnormal blood sugars. No weight change. PAST MEDICAL HISTORY: Coronary artery disease status post PCI in RCA/OM1/LAD 05/08/2018 Hypertension and hypertensive cardiovascular disease. Mixed hyperlipidemia. Prediabetes. History of end-stage renal disease on hemodialysis post renal transplant at [facility] 07/22/2022 Paroxysmal atrial fibrillation. Glaucoma. Chronic diastolic heart failure. Enlarged prostate. Latent tuberculosis. Peripheral vascular disease. Chronic kidney disease stage II of the transplant kidney GFR 60 PAST SURGICAL HISTORY: Fistula in the left arm 2019 Left heart catheterization with PCI 05/08/2018 Colonoscopy 2019 [facility] Kidney transplant [facility] 07/22/2022 SOCIAL HISTORY: Patient used to smoke about a pack every day since he was a teenager, and he quit more than 5 years ago., He drinks coffee, he denies any alcohol ingestion, no drug use or abuse. He lives with his FAMILY HISTORY: Father at age 64 from COPD, mother is alive and is about 95-year-old, patient has 7 brothers 1 with diabetes mellitus type 2 the other with hypertension, patient has 2 sisters 1 with breast cancer and had cholecystectomy the other 1 mentally challenged, patient has 2 sons alive and well and 1 daughter alive and well. PHYSICAL EXAMINATION: General: 68-year-old male laying down in bed in no apparent distress. HEENT: Head is atraumatic, normocephalic, pupils were equal round reactive to light and recommendation, extraocular muscle movement were intact, sclera nonicteric, conjunctivae were pale, mucous membranes of the mouth are somewhat dry. Neck: Supple, no JVP, normal carotid upstroke bilaterally, no lymphadenopathy. Chest: Decreased breath sounds at the bases, few rhonchi, no expiratory wheezes, no chest wall tenderness, no intercostal retractions. Heart: First heart sound is normal, second heart sound is normal there is systolic ejection murmur 2/6 located in the left sternal border. Abdomen: Soft, nontender, nondistended, positive bowel sounds. Extremities: There is no edema no calf tenderness DP +2 bilaterally. Neurologic examination: Patient is awake alert and oriented x3, cranial nerves II-12 appear grossly intact, muscle power were 5 out of 5 in upper extremities and 5 out of 5 in bilateral lower extremities, deep tendon reflexes normal bilaterally. Skin: There is vesicular eruptions involving the upper extremities lower extremities chest and torso due to disseminated varicella-zoster virus. ASSESSMENT AND PLAN: 1. 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 Patient varicella-zoster titer IgG and IgM were positive patient will be started on IV acyclovir 650 mg IV piggyback every 8 hours, infectious disease consultation will be obtained from Dr. Nuñez 2. History of kidney transplant that was on the send on July 22, 2022. We will consult nephrology regarding his immunosuppressive medication. For now restart prednisone 5 mg once every day, Prograf 2 mg orally twice every day, CellCept 1000 mg orally twice every day. Unless otherwise recommended by nephrology. 3. Coronary artery disease status post PCI in 2019. Patient follows with cardiology on a regular basis, continue patient on metoprolol 50 mg orally twice every day, continue patient on atorvastatin 20 mg orally once every day, aspirin 81 g once every day, monitor the patient symptoms very closely. 4. Prediabetes. Continue low-carb diet, monitor the patient hemoglobin A1c. 5. Hypertension and hypertensive cardiovascular disease. Continue patient on metoprolol 50 mg orally twice every day, amlodipine 10 mg once every day, monitor the patient blood pressure very closely. 6. Mixed hyperlipidemia. Continue patient on atorvastatin 20 mg once every day, monitor lipid panel, keep LDL 55-70. 7. Paroxysmal atrial fibrillation. Continue patient on metoprolol 50 mg orally twice every day, Eliquis 5 mg orally twice every day. 8. Enlarged prostate. Continue tamsulosin 0.4 mg once every day. 9. Glaucoma. Continue current eyedrops. With brimonidine. 10. Hypomagnesemia. Continue magnesium supplement to 50 mg orally once every day. 11. DVT prophylaxis. Continue Eliquis 5 mg orally twice every day. 12. GI prophylaxis. Continue famotidine 20 mg orally once every day. 13. Admit to inpatient. Estimated length of stay 2 midnights. 14. Full code. Past Medical History Past Medical History: Coronary Artery Disease (CAD), Hyperlipidemia, Hypertension, Renal Disease Additional Past Medical History / Comment(s): AV Fistula on left arm. History of Any Multi-Drug Resistant Organisms: None Reported Past Surgical History: Heart Catheterization, Heart Catheterization With Stent Additional Past Surgical History / Comment(s): AV Fistula on left arm. Past Anesthesia/Blood Transfusion Reactions: No Reported Reaction Additional Past Anesthesia/Blood Transfusion Reaction / Comment(s): Pt received blood years ago with his stomach ulcer bleed-no reaction. Date of Last Stent Placement:: 05/2018 Past Psychological History: No Psychological Hx Reported Smoking Status: Former smoker Past Alcohol Use History: None Reported Past Drug Use History: None Reported - Past Family History Father Family Medical History: Asthma Additional Family Medical History / Comment(s): Father at the age of 64yrs. Mother Family Medical History: Hypertension, Myocardial Infarction (VT) Additional Family Medical History / Comment(s): Mother had a VT sometime prior to age 60yrs. She is 86yrs old. Stent Brother(s) Family Medical History: No Reported History Sister(s) Family Medical History: No Reported History Son(s) Family Medical History: No Reported History Daughter(s) Family Medical History: No Reported History Medications and Allergies Home Medications Medication Instructions Recorded Confirmed Type Tamsulosin [Flomax] 0.4 mg PO DAILY 04/01/19 07/10/24 History Nitroglycerin Sl Tabs [Nitrostat] 0.4 mg SUBLINGUAL Q5M PRN 04/28/19 07/10/24 History Aspirin [Adult Low Dose Aspirin EC] 81 mg PO DAILY 04/12/20 07/10/24 History Atorvastatin [Lipitor] 40 mg PO DAILY 04/12/20 07/10/24 History Apixaban [Eliquis] 5 mg PO BID 07/10/24 07/10/24 History Brimonidine Tartrate [Alphagan P 1 drop LEFT EYE DAILY 07/10/24 07/10/24 History 0.2% Ophth Soln] Cholecalciferol [Vitamin D3 (125 125 mcg PO DAILY 07/10/24 07/10/24 History Mcg = 5000 Iu)] Famotidine [Pepcid] 20 mg PO BID 07/10/24 07/10/24 History Magnesium 500 mg PO DAILY 07/10/24 07/10/24 History Metoprolol Tartrate [Lopressor] 50 mg PO BID 07/10/24 07/10/24 History Tacrolimus [Prograf] 2 mg PO BID 07/10/24 07/10/24 History amLODIPine [Norvasc] 10 mg PO DAILY 07/10/24 07/10/24 History mycophenolate mofetiL [Cellcept] 1,000 mg PO BID 07/10/24 07/10/24 History predniSONE 5 mg PO DAILY 07/10/24 07/10/24 History valACYclovir HCL [Valacyclovir] 1,000 mg PO TID 07/10/24 07/10/24 History Allergies Allergy/AdvReac Type Severity Reaction Status Date / Time No Known Allergies Allergy Verified 07/10/24 15:42 Physical Exam Vitals: Vital Signs Temp Pulse Resp BP Pulse Ox 07/10/24 16:09 97.7 F 72 16 144/68 100 07/10/24 15:00 97.7 F 68 16 137/60 96 07/10/24 14:00 78 20 126/66 98 07/10/24 12:00 68 18 120/59 96 07/10/24 11:36 20 07/10/24 11:00 65 20 120/60 98 07/10/24 10:47 65 18 120/60 98 07/10/24 09:48 98.2 F 81 20 127/65 99 Intake and Output 07/10/24 07/10/24 07/10/24 06:59 14:59 22:59 Other: Weight 63.503 kg Results CBC & Chem 7: 07/10/24 11:28 07/10/24 11:28 Labs: Abnormal Lab Results - Last 24 Hours (Table) 07/10/24 07/10/24 07/10/24 Range/Units 11:28 11:28 11:28 MCHC 29.6 L (31.0-37.0) g/dL Plt Count 94 L (150-450) k/uL Lymphocytes # 0.4 L (1.0-4.8) k/uL PT 12.6 H (10.0-12.5) sec INR 1.2 H (<1.2) APTT 32.7 H (22.0-30.0) sec Sodium 136 L (137-145) mmol/L Carbon Dioxide 21 L (22-30) mmol/L BUN 21 H (9-20) mg/dL Creatinine 1.30 H (0.66-1.25) mg/dL Glucose 138 H (74-99) mg/dL Total Protein 5.6 L (6.3-8.2) g/dL
[2024-07-11] MEDS: ACETAMINOPHEN TAB 325 MG TAB PO PRN (12:55)
[2024-07-11] MEDS: MAGNESIUM OXIDE 400 MG TAB PO SCH (12:56)
[2024-07-11] MEDS: predniSONE 5 MG TAB PO SCH (12:56)
--- NOTE | 2024-07-12 09:10 | P.PN ---
Subjective Patient is seen in follow-up for chronic kidney disease and renal transplant management. GFR at baseline. Receiving IV acyclovir. Admits to good urine output. No vomiting or diarrhea. Vital signs are stable. General: No acute distress. HEENT: Head exam is unremarkable. Rash noted. LUNGS: No audible rhonchi or wheezes. HEART: Rate and Rhythm are regular. ABDOMEN: Nontender. EXTREMITITES: No edema. Disseminated rash noted. Objective - Vital Signs Vital signs: Vital Signs Temp 98.2 F 07/12/24 07:41 Pulse 62 07/12/24 07:41 Resp 18 07/12/24 07:41 BP 136/65 07/12/24 07:41 Pulse Ox 99 07/12/24 07:41 FiO2 Intake & Output 07/11/24 07/12/24 07/12/24 18:59 06:59 18:59 Output Total 0 Balance 0 Weight 63.503 kg Output: Urine 0 - Labs CBC & Chem 7: 07/11/24 06:17 07/11/24 06:17 Labs: Abnormal Lab Results - Last 24 Hours (Table) 07/10/24 07/11/24 07/11/24 Range/Units 14:14 06:17 06:17 Hgb 12.3 L (13.0-17.0) g/dL MCH 26.5 L (27.0-32.0) pg MCHC 30.7 L (32.0-37.0) g/dL RDW 14.9 H (11.5-14.5) % Plt Count 90 L (140-440) X 10*3/uL Immature Gran # 0.08 H (0.00-0.04) X 10*3/uL Lymphocytes # 0.43 L (0.90-5.00) X 10*3/uL Eosinophils # 0.03 L (0.04-0.35) X 10*3/uL Carbon Dioxide 19.1 L (21.6-31.8) mmol/L Total Protein 4.8 L (6.2-8.2) g/dL Albumin 3.4 L (3.8-4.9) g/dL Globulin 1.4 L (1.6-3.3) g/dL VZV DNA (PCR) DETECTED A (Not detected) Microbiology - Last 24 Hours (Table) 07/10/24 11:28 Blood Culture - Preliminary Blood Assessment and Plan Plan: Assessment: 1. Status post donor renal transplant in 2021 at [facility]. 2. Disseminated zoster infection maintained on IV acyclovir. ID following. 3. Chronic kidney disease stage IIIa with baseline creatinine near 1.3. Etiology is use of calcineurin admitted and solitary kidney. 4. Hypertension with chronic kidney disease. Stable. Plan: Resume IV fluids to help prevent crystal nephropathy from IV acyclovir. Maintain Prograf and prednisone. Dose of CellCept decreased to 500 mg twice daily July 11, 2024. Further decrease frequency to just once daily for now. Avoid nephrotoxins. Follow-up a.m. Prograf level.
[2024-07-12] MEDS: SODIUM CHLORIDE 0.9% 1,000 ML IV SCH (10:53)
[2024-07-12 13:03] LABS: African American GFR (CKD) 74 (>60 ml/min/1.73 sqM); Anion Gap 5 mmol/L; Blood Urea Nitrogen 19 mg/dL (9-20); Carbon Dioxide 25 mmol/L (22-30); Chloride 105 mmol/L (98-107); Glucose 99 mg/dL (74-99); Magnesium 1.3 mg/dL (1.6-2.3); Non-African American GFR(CKD) 64 (>60 ml/min/1.73 sqM); Sodium 135 mmol/L (137-145)
--- NOTE | 2024-07-12 14:16 | P.PN ---
Subjective Progress Note Date: 07/12/24 Principal diagnosis: Reason for follow-up is disseminated shingles Patient is a 68-year-old male with a past medical history significant for coronary disease hypertension hyperlipidemia end-stage renal disease in this patient who is status post renal transplant and is currently on immunosuppressive medication presenting the hospital with disseminated rash with outpatient biopsy suspicious for shingles. On today's evaluation that is 07/12/2024, patient has been afebrile, patient is breathing comfortably and is currently on room air, patient denies having any significant cough no chest pain, patient denies nausea vomiting or diarrhea and no abdominal pain no new rash has been noticed. Patient did have a creatinine 1.17 blood culture has been pending Objective - Vital Signs Vital signs: Vital Signs Temp 97.5 F L 07/12/24 13:28 Pulse 62 07/12/24 13:28 Resp 17 07/12/24 13:28 BP 136/67 07/12/24 13:28 Pulse Ox 98 07/12/24 13:28 FiO2 Intake & Output 07/11/24 07/12/24 07/12/24 18:59 06:59 18:59 Output Total 0 Balance 0 Weight 63.503 kg Output: Urine 0 Other: # Voids 1 - Exam GENERAL DESCRIPTION: An elderly male up in bed in no distress RESPIRATORY SYSTEM: Unlabored breathing , decreased breath sounds at bases HEART: S1 S2 regular rate and rhythm , ABDOMEN: Soft , no tenderness EXTREMITIES: No edema feet SKIN: Disseminated rash which is mostly crusting no new rash was noticed - Labs CBC & Chem 7: 07/11/24 06:17 07/12/24 10:50 Labs: Abnormal Lab Results - Last 24 Hours (Table) 07/12/24 Range/Units 10:50 Sodium 135 L (137-145) mmol/L Magnesium 1.3 L (1.6-2.3) mg/dL Microbiology - Last 24 Hours (Table) 07/10/24 11:28 Blood Culture - Preliminary Blood Assessment and Plan (1) Rash Current Visit: Yes Status: Acute Code(s): R21 - RASH AND OTHER NONSPECIFIC SKIN ERUPTION SNOMED Code(s): 533995100 (2) Disseminated zoster Current Visit: Yes Status: Acute Code(s): B02.7 - DISSEMINATED ZOSTER SNOMED Code(s): 10247314 Plan: 1patient presented to hospital with generalized rash which is mostly vesicular/pustular crusting on the facial area and did have a biopsy done by the metal gauge maker and reported positive for herpes zoster. 2patient did have swab obtained from the lesion which came back positive for VZV confirming the diagnosis 3Airborne isolation/negative pressure room 4we will keep the patient on IV acyclovir over the weekend and if continue to i mprove will transition to oral Valtrex on discharge Dictation was produced using [employer] dictation software. please excuse any grammatical, word or spelling errors.
[2024-07-12] MEDS: MAGNESIUM SULFATE-D5W PMX 1 GM in DEXTROSE/WATER 1 100ML.BAG IVPB SCH (16:28)
--- NOTE | 2024-07-13 08:54 | P.PN ---
Subjective Progress Note Date: 07/11/24 HISTORY OF PRESENT ILLNESS: This is a 68-year-old male with a previous medical history significant for co ronary artery disease status post PCI of the proximal obtuse marginal 1, LAD, and mid RCA 05/08/2018 history of hypertension and hypertensive cardiovascular disease, hyperlipidemia, history of end-stage renal disease on hemodialysis received a renal transplant at [facility] 07/22/2022, patient has been under the care of the transplant on regular basis, history of prediabetes, paroxysmal atrial fibrillation, enlarged prostate, glaucoma, as well, patient has been doing fine up till recently when he came to the office on June 30, 2024 when he developed to have a significant vesicular eruptions in his upper extremities as well as his abdomen nothing on his legs, at that time a viral panel was done, initially the varicella-zoster virus came back positive for IgG, however the IgM index was positive at 0.94 normal is up to 0.9 it was recommended to repeat the titers I have recommended to send the labs to the transplant team at [facility] for further evaluation recommendation, chriss kirkpatrick ended up going to dermatology had a biopsy that came back positive for varicella-zoster virus patient does have worsening of the rash all over his body he was seen in the emergency department at [facility] it was recommended for the patient to be transferred to [facility] but the patient ended up staying in the hospital he will be seen in consultation by infectious disease as well as by nephrology, he will be started on IV acyclovir for further evaluation and treatment. 07/11: Patient sitting up in bed in no apparent distress, he denies any fever or chills at this time, he has been receiving acyclovir 650 mg IV piggyback every 8 hours, he was seen earlier by nephrology as well as by infectious disease, Dr. Rodriguez has decreased his dose of CellCept to 500 mg orally once every day, monitor the patient symptoms very closely, his eruptions on his face and his upper extremities are much better and starting to scab off. Patient denies any headache at this time, he denies any mental status changes at this time, he is ambulating very well, he continues to be in droplet precautions. REVIEW OF SYSTEMS: Constitutional: No documented fever, no chills, no night sweats. No weight change. No weakness, fatigue or lethargy. No daytime sleepiness. EENT: No headache. No blurred vision or double vision, no loss of vision. No loss of Hearing, no ringing in the ears, no dizziness. No nasal drainage or congestion. No epistaxis. No sore throat. Lungs: No shortness of breath, no cough, no sputum production. No wheezing. Reports dyspnea with activity. Cardiovascular: No chest pain, no lower extremity edema. No palpitations. No paroxysmal nocturnal dyspnea. No orthopnea. No lightheadedness or dizziness. No syncopal episodes. Abdominal: Reports abdominal pain. No nausea, vomiting. No diarrhea. No constipation. No bloody or tarry stools reports loss of appetite. Genitourinary: No dysuria, increased frequency, urgency. No urinary retention. Musculoskeletal: No myalgias. No muscle weakness, no gait dysfunction, no frequent falls. No back pain. No neck pain. Integumentary: No wounds, positive for lesions. Positive for diffuse disseminated vesicular eruptions on his face upper extremities lower extremities and chest abdomen and torso. Neurologic: No aphasia. No facial droop. No change in mentation. No head injury. No headache. No paralysis. No paresthesia. Psychiatric: No depression. No anxiety. No mood swings. Endocrine: No abnormal blood sugars. No weight change. PHYSICAL EXAMINATION: General: 68-year-old male laying down in bed in no apparent distress. HEENT: Head is atraumatic, normocephalic, pupils were equal round reactive to light and recommendation, extraocular muscle movement were intact, sclera nonicteric, conjunctivae were pale, mucous membranes of the mouth are somewhat dry. Neck: Supple, no JVP, normal carotid upstroke bilaterally, no lymphadenopathy. Chest: Decreased breath sounds at the bases, few rhonchi, no expiratory wheezes, no chest wall tenderness, no intercostal retractions. Heart: First heart sound is normal, second heart sound is normal there is systolic ejection murmur 2/6 located in the left sternal border. Abdomen: Soft, nontender, nondistended, positive bowel sounds. Extremities: There is no edema no calf tenderness DP +2 bilaterally. Neurologic examination: Patient is awake alert and oriented x3, cranial nerves II-12 appear grossly intact, muscle power were 5 out of 5 in upper extremities and 5 out of 5 in bilateral lower extremities, deep tendon reflexes normal bilaterally. Skin: There is vesicular eruptions involving the upper extremities lower extremities chest and torso due to disseminated varicella-zoster virus. ASSESSMENT AND PLAN: 1. 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 Patient varicella-zoster titer IgG and IgM were positive patient will be started on IV acyclovir 650 mg IV piggyback every 8 hours, infectious disease consultation 2. History of kidney transplant that was on the send on July 22, 2022. We will consult nephrology regarding his immunosuppressive medication. For now restart prednisone 5 mg once every day, Prograf 2 mg orally twice every day, CellCept 500 mg orally once every day. 3. Coronary artery disease status post PCI in 2019. Patient follows with cardiology on a regular basis, continue patient on metoprolol 50 mg orally twice every day, continue patient on atorvastatin 20 mg orally once every day, aspirin 81 g once every day, monitor the patient symptoms very closely. 4. Prediabetes. Continue low-carb diet, monitor the patient hemoglobin A1c. 5. Hypertension and hypertensive cardiovascular disease. Continue patient on metoprolol 50 mg orally twice every day, amlodipine 10 mg once every day, monitor the patient blood pressure very closely. 6. Mixed hyperlipidemia. Continue patient on atorvastatin 20 mg once every day, monitor lipid panel, keep LDL 55-70. 7. Paroxysmal atrial fibrillation. Continue patient on metoprolol 50 mg orally twice every day, Eliquis 5 mg orally twice every day. 8. Enlarged prostate. Continue tamsulosin 0.4 mg once every day. 9. Glaucoma. Continue current eyedrops. With brimonidine. 10. Hypomagnesemia. Continue magnesium supplement to 50 mg orally once every day. 11. DVT prophylaxis. Continue Eliquis 5 mg orally twice every day. 12. GI prophylaxis. Continue famotidine 20 mg orally once every day. 13. Increase activity. Objective - Vital Signs Vital signs: Vital Signs Temp 97.6 F 07/10/24 20:22 Pulse 74 07/11/24 11:46 Resp 18 07/11/24 11:46 BP 141/76 07/11/24 11:46 Pulse Ox 100 07/11/24 11:46 FiO2 Intake & Output 07/10/24 07/11/24 07/11/24 18:59 06:59 18:59 Weight 63.503 kg - Labs CBC & Chem 7: 07/11/24 06:17 07/12/24 10:50 Labs: Abnormal Lab Results - Last 24 Hours (Table) 07/10/24 07/10/24 07/10/24 Range/Units 11:28 11:28 11:28 Hgb (13.0-17.0) g/dL MCH (27.0-32.0) pg MCHC 29.6 L (31.0-37.0) g/dL RDW (11.5-14.5) % Plt Count 94 L (150-450) k/uL Immature Gran # (0.00-0.04) X 10*3/uL Lymphocytes # 0.4 L (1.0-4.8) k/uL Eosinophils # (0.04-0.35) X 10*3/uL PT 12.6 H (10.0-12.5) sec INR 1.2 H (<1.2) APTT 32.7 H (22.0-30.0) sec Sodium 136 L (137-145) mmol/L Carbon Dioxide 21 L (22-30) mmol/L BUN 21 H (9-20) mg/dL Creatinine 1.30 H (0.66-1.25) mg/dL Glucose 138 H (74-99) mg/dL Total Protein 5.6 L (6.3-8.2) g/dL Albumin (3.8-4.9) g/dL Globulin (1.6-3.3) g/dL VZV DNA (PCR) (Not detected) 07/10/24 07/11/24 07/11/24 Range/Units 14:14 06:17 06:17 Hgb 12.3 L (13.0-17.0) g/dL MCH 26.5 L (27.0-32.0) pg MCHC 30.7 L (31.0-37.0) g/dL RDW 14.9 H (11.5-14.5) % Plt Count 90 L (150-450) k/uL Immature Gran # 0.08 H (0.00-0.04) X 10*3/uL Lymphocytes # 0.43 L (1.0-4.8) k/uL Eosinophils # 0.03 L (0.04-0.35) X 10*3/uL PT (10.0-12.5) sec INR (<1.2) APTT (22.0-30.0) sec Sodium (137-145) mmol/L Carbon Dioxide 19.1 L (22-30) mmol/L BUN (9-20) mg/dL Creatinine (0.66-1.25) mg/dL Glucose (74-99) mg/dL Total Protein 4.8 L (6.3-8.2) g/dL Albumin 3.4 L (3.8-4.9) g/dL Globulin 1.4 L (1.6-3.3) g/dL VZV DNA (PCR) DETECTED A (Not detected)
--- NOTE | 2024-07-13 08:55 | P.PN ---
Subjective Progress Note Date: 07/12/24 HISTORY OF PRESENT ILLNESS: This is a 68-year-old male with a previous medical history significant for co ronary artery disease status post PCI of the proximal obtuse marginal 1, LAD, and mid RCA 05/08/2018 history of hypertension and hypertensive cardiovascular disease, hyperlipidemia, history of end-stage renal disease on hemodialysis received a renal transplant at [facility] 07/22/2022, patient has been under the care of the transplant on regular basis, history of prediabetes, paroxysmal atrial fibrillation, enlarged prostate, glaucoma, as well, patient has been doing fine up till recently when he came to the office on June 30, 2024 when he developed to have a significant vesicular eruptions in his upper extremities as well as his abdomen nothing on his legs, at that time a viral panel was done, initially the varicella-zoster virus came back positive for IgG, however the IgM index was positive at 0.94 normal is up to 0.9 it was recommended to repeat the titers I have recommended to send the labs to the transplant team at [facility] for further evaluation recommendation, chriss kirkpatrick ended up going to dermatology had a biopsy that came back positive for varicella-zoster virus patient does have worsening of the rash all over his body he was seen in the emergency department at [facility] it was recommended for the patient to be transferred to [facility] but the patient ended up staying in the hospital he will be seen in consultation by infectious disease as well as by nephrology, he will be started on IV acyclovir for further evaluation and treatment. 07/11: Patient sitting up in bed in no apparent distress, he denies any fever or chills at this time, he has been receiving acyclovir 650 mg IV piggyback every 8 hours, he was seen earlier by nephrology as well as by infectious disease, Dr. Rodriguez has decreased his dose of CellCept to 500 mg orally once every day, monitor the patient symptoms very closely, his eruptions on his face and his upper extremities are much better and starting to scab off. Patient denies any headache at this time, he denies any mental status changes at this time, he is ambulating very well, he continues to be in droplet precautions. 07/12: Patient is sitting up in bed in no apparent distress, he denies any chest pain, shortness of breath, he is eating well, he has no poor appetite, he has no nausea vomiting or diarrhea, he has been tolerating treatment very well, the scabs on his face is much better today, he denies any headache at this point no fever or chills at this time continue current treatment plan, maintain the patient on IV acyclovir for another 1 or 2 days. REVIEW OF SYSTEMS: Constitutional: No documented fever, no chills, no night sweats. No weight change. No weakness, fatigue or lethargy. No daytime sleepiness. EENT: No headache. No blurred vision or double vision, no loss of vision. No l oss of Hearing, no ringing in the ears, no dizziness. No nasal drainage or congestion. No epistaxis. No sore throat. Lungs: No shortness of breath, no cough, no sputum production. No wheezing. Re ports dyspnea with activity. Cardiovascular: No chest pain, no lower extremity edema. No palpitations. No paroxysmal nocturnal dyspnea. No orthopnea. No lightheadedness or dizziness. No syncopal episodes. Abdominal: Reports abdominal pain. No nausea, vomiting. No diarrhea. No constipation. No bloody or tarry stools reports loss of appetite. Genitourinary: No dysuria, increased frequency, urgency. No urinary retention. Musculoskeletal: No myalgias. No muscle weakness, no gait dysfunction, no frequent falls. No back pain. No neck pain. Integumentary: No wounds, positive for lesions. Positive for diffuse disseminated vesicular eruptions on his face upper extremities lower extremities and chest abdomen and torso. Neurologic: No aphasia. No facial droop. No change in mentation. No head injury. No headache. No paralysis. No paresthesia. Psychiatric: No depression. No anxiety. No mood swings. Endocrine: No abnormal blood sugars. No weight change. PHYSICAL EXAMINATION: General: 68-year-old male laying down in bed in no apparent distress. HEENT: Head is atraumatic, normocephalic, pupils were equal round reactive to light and recommendation, extraocular muscle movement were intact, sclera nonicteric, conjunctivae were pale, mucous membranes of the mouth are somewhat d ry. Neck: Supple, no JVP, normal carotid upstroke bilaterally, no lymphadenopathy. Chest: Decreased breath sounds at the bases, few rhonchi, no expiratory wheezes, no chest wall tenderness, no intercostal retractions. Heart: First heart sound is normal, second heart sound is normal there is systolic ejection murmur 2/6 located in the left sternal border. Abdomen: Soft, nontender, nondistended, positive bowel sounds. Extremities: There is no edema no calf tenderness DP +2 bilaterally. Neurologic examination: Patient is awake alert and oriented x3, cranial nerves II-12 appear grossly intact, muscle power were 5 out of 5 in upper extremities and 5 out of 5 in bilateral lower extremities, deep tendon reflexes normal bilaterally. Skin: There is vesicular eruptions involving the upper extremities lower extremities chest and torso due to disseminated varicella-zoster virus. ASSESSMENT AND PLAN: 1. 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 Patient varicella-zoster titer IgG and IgM were positive patient will be started on IV acyclovir 650 mg IV piggyback every 8 hours, infectious disease consultation 2. History of kidney transplant that was on the send on July 22, 2022. We will consult nephrology regarding his immunosuppressive medication. For now restart prednisone 5 mg once every day, Prograf 2 mg orally twice every day, CellCept 500 mg orally once every day. 3. Coronary artery disease status post PCI in 2019. Patient follows with cardiology on a regular basis, continue patient on metoprolol 50 mg orally twice every day, continue patient on atorvastatin 20 mg orally once every day, aspirin 81 g once every day, monitor the patient symptoms very closely. 4. Prediabetes. Continue low-carb diet, monitor the patient hemoglobin A1c. 5. Hypertension and hypertensive cardiovascular disease. Continue patient on metoprolol 50 mg orally twice every day, amlodipine 10 mg once every day, monitor the patient blood pressure very closely. 6. Mixed hyperlipidemia. Continue patient on atorvastatin 20 mg once every day, monitor lipid panel, keep LDL 55-70. 7. Paroxysmal atrial fibrillation. Continue patient on metoprolol 50 mg orally twice every day, Eliquis 5 mg orally twice every day. 8. Enlarged prostate. Continue tamsulosin 0.4 mg once every day. 9. Glaucoma. Continue current eyedrops. With brimonidine. 10. Hypomagnesemia. Continue magnesium supplement to 50 mg orally once every day. 11. DVT prophylaxis. Continue Eliquis 5 mg orally twice every day. 12. GI prophylaxis. Continue famotidine 20 mg orally once every day. 13. Increase activity. Objective - Vital Signs Vital signs: Vital Signs Temp 97.7 F 07/13/24 02:00 Pulse 59 L 07/13/24 02:00 Resp 16 07/12/24 20:00 BP 132/63 07/13/24 02:00 Pulse Ox 98 07/13/24 02:00 FiO2 Intake & Output 07/12/24 07/13/24 07/13/24 18:59 06:59 18:59 Other: # Voids 3 2 - Labs CBC & Chem 7: 07/11/24 06:17 07/12/24 10:50 Labs: Abnormal Lab Results - Last 24 Hours (Table) 07/12/24 Range/Units 10:50 Sodium 135 L (137-145) mmol/L Magnesium 1.3 L (1.6-2.3) mg/dL Microbiology - Last 24 Hours (Table) 07/10/24 11:28 Blood Culture - Preliminary Blood
[2024-07-13 09:09] LABS: Basophils % (A) 0 %; Eosinophils % (A) 1 %; HCT 39.3 % (39.0-53.0); Hypochromasia Moderate; Lymphocytes # (A) 0.5 k/uL (1.0-4.8); Lymphocytes % (A) 9 %; MCH 26.5 pg (25.0-35.0); MCHC 30.5 g/dL (31.0-37.0); MCV 86.8 fL (80.0-100.0); Mean Platelet Volume 10.1; Monocytes # (A) 0.3 k/uL (0-1.0); Monocytes % (A) 6 %; Neutrophils # (A) 4.3 k/uL (1.3-7.7); Neutrophils % (A) 83 %; Platelet Count 112 k/uL (150-450); RBC 4.53 m/uL (4.30-5.90); RDW 14.9 % (11.5-15.5); WBC 5.1 k/uL (3.8-10.6)
[2024-07-13 09:17] LABS: ALT 32 U/L (4-49); AST 22 U/L (17-59); African American GFR (CKD) 76 (>60 ml/min/1.73 sqM); Albumin 2.7 g/dL (3.5-5.0); Albumin/Globulin Ratio 1.4; Alkaline Phosphatase 79 U/L (38-126); Anion Gap 6 mmol/L; Blood Urea Nitrogen 17 mg/dL (9-20); Calcium 9.2 mg/dL (8.4-10.2); Carbon Dioxide 23 mmol/L (22-30); Chloride 109 mmol/L (98-107); Globulin 1.9 g/dL; Glucose 99 mg/dL (74-99); Magnesium 1.6 mg/dL (1.6-2.3); Non-African American GFR(CKD) 66 (>60 ml/min/1.73 sqM); Potassium 4.3 mmol/L (3.5-5.1); Sodium 138 mmol/L (137-145); Total Bilirubin 0.4 mg/dL (0.2-1.3); Total Protein 4.6 g/dL (6.3-8.2)
--- NOTE | 2024-07-13 09:38 | P.PN ---
Subjective Patient is seen in follow-up for chronic kidney disease and renal transplant management. GFR at baseline. Receiving IV acyclovir. Admits to good urine output. No vomiting or diarrhea. Vital signs are stable. General: No acute distress. HEENT: Head exam is unremarkable. Rash noted. LUNGS: No audible rhonchi or wheezes. HEART: Rate and Rhythm are regular. ABDOMEN: Nontender. EXTREMITITES: No edema. Disseminated rash noted. Objective - Vital Signs Vital signs: Vital Signs Temp 97.9 F 07/13/24 08:56 Pulse 57 L 07/13/24 08:56 Resp 19 07/13/24 08:56 BP 143/64 07/13/24 08:56 Pulse Ox 97 07/13/24 08:56 FiO2 Intake & Output 07/12/24 07/13/24 07/13/24 18:59 06:59 18:59 Other: # Voids 3 2 - Labs CBC & Chem 7: 07/13/24 08:12 07/13/24 08:12 Labs: Abnormal Lab Results - Last 24 Hours (Table) 07/12/24 07/13/24 07/13/24 Range/Units 10:50 08:12 08:12 Hgb 12.0 L (13.0-17.5) gm/dL MCHC 30.5 L (31.0-37.0) g/dL Plt Count 112 L (150-450) k/uL Lymphocytes # 0.5 L (1.0-4.8) k/uL Sodium 135 L (137-145) mmol/L Chloride 109 H (98-107) mmol/L Magnesium 1.3 L (1.6-2.3) mg/dL Total Protein 4.6 L (6.3-8.2) g/dL Albumin 2.7 L (3.5-5.0) g/dL Microbiology - Last 24 Hours (Table) 07/10/24 11:28 Blood Culture - Preliminary Blood Assessment and Plan Plan: Assessment: 1. Status post donor renal transplant in 2021 at [facility]. 2. Disseminated zoster infection maintained on IV acyclovir. ID following. 3. Chronic kidney disease stage IIIa with baseline creatinine near 1.3. Lauryn ology is use of calcineurin admitted and solitary kidney. GFR at baseline. 4. Hypertension with chronic kidney disease. Stable. Plan: Maintain IV fluids to help prevent crystal nephropathy from IV acyclovir. Maintain Prograf and prednisone. Currently on decreased dose of CellCept 500 mg once daily due to active infection. Home dose is 1 g twice daily. Avoid nephrotoxins. Follow-up a.m. Prograf level.
--- NOTE | 2024-07-13 12:49 | P.PN ---
Subjective Progress Note Date: 07/13/24 HISTORY OF PRESENT ILLNESS: This is a 68-year-old male with a previous medical history significant for co ronary artery disease status post PCI of the proximal obtuse marginal 1, LAD, and mid RCA 05/08/2018 history of hypertension and hypertensive cardiovascular disease, hyperlipidemia, history of end-stage renal disease on hemodialysis received a renal transplant at [facility] 07/22/2022, patient has been under the care of the transplant on regular basis, history of prediabetes, paroxysmal atrial fibrillation, enlarged prostate, glaucoma, as well, patient has been doing fine up till recently when he came to the office on June 30, 2024 when he developed to have a significant vesicular eruptions in his upper extremities as well as his abdomen nothing on his legs, at that time a viral panel was done, initially the varicella-zoster virus came back positive for IgG, however the IgM index was positive at 0.94 normal is up to 0.9 it was recommended to repeat the titers I have recommended to send the labs to the transplant team at [facility] for further evaluation recommendation, chriss kirkpatrick ended up going to dermatology had a biopsy that came back positive for varicella-zoster virus patient does have worsening of the rash all over his body he was seen in the emergency department at [facility] it was recommended for the patient to be transferred to [facility] but the patient ended up staying in the hospital he will be seen in consultation by infectious disease as well as by nephrology, he will be started on IV acyclovir for further evaluation and treatment. 07/11: Patient sitting up in bed in no apparent distress, he denies any fever or chills at this time, he has been receiving acyclovir 650 mg IV piggyback every 8 hours, he was seen earlier by nephrology as well as by infectious disease, Dr. Rodriguez has decreased his dose of CellCept to 500 mg orally once every day, monitor the patient symptoms very closely, his eruptions on his face and his upper extremities are much better and starting to scab off. Patient denies any headache at this time, he denies any mental status changes at this time, he is ambulating very well, he continues to be in droplet precautions. 07/12: Patient is sitting up in bed in no apparent distress, he denies any chest pain, shortness of breath, he is eating well, he has no poor appetite, he has no nausea vomiting or diarrhea, he has been tolerating treatment very well, the scabs on his face is much better today, he denies any headache at this point no fever or chills at this time continue current treatment plan, maintain the patient on IV acyclovir for another 1 or 2 days. 07/13: Patient is sitting up at the edge of the bed, he is ambulating very well, his crusted lesions on his face and upper chest and back is much better, he complains of some stinging pain, but stated that Tylenol does work for him, he does not want to be started on any new medicine such as Lyrica, he has been followed by infectious disease as well as by nephrology, continue current treatment plan, will follow-up with the patient very closely continue IV acyclovir 650 mg IV piggyback every 8 hours, will recheck his labs tomorrow morning REVIEW OF SYSTEMS: Constitutional: No documented fever, no chills, no night sweats. No weight skip nge. No weakness, fatigue or lethargy. No daytime sleepiness. EENT: No headache. No blurred vision or double vision, no loss of vision. No loss of Hearing, no ringing in the ears, no dizziness. No nasal drainage or congestion. No epistaxis. No sore throat. Lungs: No shortness of breath, no cough, no sputum production. No wheezing. Reports dyspnea with activity. Cardiovascular: No chest pain, no lower extremity edema. No palpitations. No paroxysmal nocturnal dyspnea. No orthopnea. No lightheadedness or dizziness. No syncopal episodes. Abdominal: Reports abdominal pain. No nausea, vomiting. No diarrhea. No constipation. No bloody or tarry stools reports loss of appetite. Genitourinary: No dysuria, increased frequency, urgency. No urinary retention. Musculoskeletal: No myalgias. No muscle weakness, no gait dysfunction, no frequent falls. No back pain. No neck pain. Integumentary: No wounds, positive for lesions. Positive for diffuse disseminated vesicular eruptions on his face upper extremities lower extremities and chest abdomen and torso. Neurologic: No aphasia. No facial droop. No change in mentation. No head injury. No headache. No paralysis. No paresthesia. Psychiatric: No depression. No anxiety. No mood swings. Endocrine: No abnormal blood sugars. No weight change. PHYSICAL EXAMINATION: General: 68-year-old male laying down in bed in no apparent distress. HEENT: Head is atraumatic, normocephalic, pupils were equal round reactive to light and recommendation, extraocular muscle movement were intact, sclera nonicteric, conjunctivae were pale, mucous membranes of the mouth are somewhat dry. Neck: Supple, no JVP, normal carotid upstroke bilaterally, no lymphadenopathy. Chest: Decreased breath sounds at the bases, few rhonchi, no expiratory wheezes, no chest wall tenderness, no intercostal retractions. Heart: First heart sound is normal, second heart sound is normal there is systolic ejection murmur 2/6 located in the left sternal border. Abdomen: Soft, nontender, nondistended, positive bowel sounds. Extremities: There is no edema no calf tenderness DP +2 bilaterally. Neurologic examination: Patient is awake alert and oriented x3, cranial nerves II-12 appear grossly intact, muscle power were 5 out of 5 in upper extremities and 5 out of 5 in bilateral lower extremities, deep tendon reflexes normal bilaterally. Skin: There is vesicular eruptions involving the upper extremities lower extremities chest and torso due to disseminated varicella-zoster virus. ASSESSMENT AND PLAN: 1. 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 Patient varicella-zoster titer IgG and IgM were positive patient will be started on IV acyclovir 650 mg IV piggyback every 8 hours, infectious disease consultation 2. History of kidney transplant that was on the send on July 22, 2022. We will consult nephrology regarding his immunosuppressive medication. For now restart prednisone 5 mg once every day, Prograf 2 mg orally twice every day, CellCept 500 mg orally once every day. 3. Coronary artery disease status post PCI in 2019. Patient follows with cardiology on a regular basis, continue patient on metoprolol 50 mg orally twice every day, continue patient on atorvastatin 20 mg orally once every day, aspirin 81 g once every day, monitor the patient symptoms very closely. 4. Prediabetes. Continue low-carb diet, monitor the patient hemoglobin A1c. 5. Hypertension and hypertensive cardiovascular disease. Continue patient on metoprolol 50 mg orally twice every day, amlodipine 10 mg once every day, monitor the patient blood pressure very closely. 6. Mixed hyperlipidemia. Continue patient on atorvastatin 20 mg once every day, monitor lipid panel, keep LDL 55-70. 7. Paroxysmal atrial fibrillation. Continue patient on metoprolol 50 mg orally twice every day, Eliquis 5 mg orally twice every day. 8. Enlarged prostate. Continue tamsulosin 0.4 mg once every day. 9. Glaucoma. Continue current eyedrops. With brimonidine. 10. Hypomagnesemia. Continue magnesium supplement to 50 mg orally once every day. 11. DVT prophylaxis. Continue Eliquis 5 mg orally twice every day. 12. GI prophylaxis. Continue famotidine 20 mg orally once every day. 13. Increase activity. Objective - Vital Signs Vital signs: Vital Signs Temp 97.7 F 07/13/24 02:00 Pulse 59 L 07/13/24 02:00 Resp 16 07/12/24 20:00 BP 132/63 07/13/24 02:00 Pulse Ox 98 07/13/24 02:00 FiO2 Intake & Output 07/12/24 07/13/24 07/13/24 18:59 06:59 18:59 Other: # Voids 3 2 - Labs CBC & Chem 7: 07/13/24 08:12 07/13/24 08:12 Labs: Abnormal Lab Results - Last 24 Hours (Table) 07/12/24 Range/Units 10:50 Sodium 135 L (137-145) mmol/L Magnesium 1.3 L (1.6-2.3) mg/dL Microbiology - Last 24 Hours (Table) 07/10/24 11:28 Blood Culture - Preliminary Blood
--- NOTE | 2024-07-13 15:52 | P.PN ---
Subjective Progress Note Date: 07/13/24 Principal diagnosis: Reason for follow-up is disseminated shingles Patient is a 68-year-old male with a past medical history significant for coronary disease hypertension hyperlipidemia end-stage renal disease in this patient who is status post renal transplant and is currently on immunosuppressive medication presenting the hospital with disseminated rash with outpatient biopsy suspicious for shingles. On today's evaluation that is 07/13/2024, Patient is afebrile this morning patient denies having any chest pain shortness of breath or cough, the patient is currently on room air, patient denies any abdominal pain no diarrhea no nausea no vomiting, rash is crusting of and no new rash has been noticed. Patient white count is 5.1,. Creatinine is 1.14 blood culture has been negative Objective - Vital Signs Vital signs: Vital Signs Temp 97.6 F 07/13/24 14:13 Pulse 70 07/13/24 14:13 Resp 17 07/13/24 14:13 BP 131/81 07/13/24 14:13 Pulse Ox 98 07/13/24 14:13 FiO2 Intake & Output 07/12/24 07/13/24 07/13/24 18:59 06:59 18:59 Other: # Voids 3 2 1 - Exam GENERAL DESCRIPTION: An elderly male up in bed in no distress RESPIRATORY SYSTEM: Unlabored breathing SKIN: Disseminated rash which is mostly crusting no new rash was noticed - Labs CBC & Chem 7: 07/13/24 08:12 07/13/24 08:12 Labs: Abnormal Lab Results - Last 24 Hours (Table) 07/13/24 07/13/24 Range/Units 08:12 08:12 Hgb 12.0 L (13.0-17.5) gm/dL MCHC 30.5 L (31.0-37.0) g/dL Plt Count 112 L (150-450) k/uL Lymphocytes # 0.5 L (1.0-4.8) k/uL Chloride 109 H (98-107) mmol/L Total Protein 4.6 L (6.3-8.2) g/dL Albumin 2.7 L (3.5-5.0) g/dL Microbiology - Last 24 Hours (Table) 07/10/24 11:28 Blood Culture - Preliminary Blood Assessment and Plan (1) Rash Current Visit: Yes Status: Acute Code(s): R21 - RASH AND OTHER NONSPECIFIC SKIN ERUPTION SNOMED Code(s): 857167392 (2) Disseminated zoster Current Visit: Yes Status: Acute Code(s): B02.7 - DISSEMINATED ZOSTER SNOMED Code(s): 01002104 Plan: 1patient presented to hospital with generalized rash which is mostly vesicular/pustular crusting on the facial area and did have a biopsy done by the stripper latex and reported positive for herpes zoster. 2patient did have swab obtained from the lesion which came back positive for VZV confirming the diagnosis 3Airborne isolation/negative pressure room 4patient seem to have overall improvement in the rash no new rash has been noticed will continue with the acyclovir and will transition to oral Valtrex on discharge Dictation was produced using [employer] dictation software. please excuse any grammatical, word or spelling errors.
--- NOTE | 2024-07-14 12:05 | P.PN ---
Subjective patient is seen for follow-up for chronic kidney disease and renal transplant. Renal function at baseline. Maintained on IV acyclovir for disseminated herpes zoster infection. No significant complaints today. Tolerating oral intake. Objective - Vital Signs Vital signs: Vital Signs Temp 97.9 F 07/14/24 07:44 Pulse 63 07/14/24 09:50 Resp 18 07/14/24 09:50 BP 154/67 07/14/24 07:44 Pulse Ox 97 07/14/24 07:44 FiO2 Intake & Output 07/13/24 07/14/24 07/14/24 18:59 06:59 18:59 Other: Voiding Method Toilet # Voids 1 1 - Exam patient is awake, comfortable, no acute distress. Abdomen is soft nontender Examination of lower extremities shows no evidence of edema [employer] exam grossly intact - Labs CBC & Chem 7: 07/13/24 08:12 07/13/24 08:12 Labs: Microbiology - Last 24 Hours (Table) 07/10/24 11:28 Blood Culture - Preliminary Blood Assessment and Plan Assessment: 1. Status post donor renal transplant in 2021 at [facility]. 2. Disseminated zoster infection maintained on IV acyclovir. ID following. 3. Chronic kidney disease stage IIIa with baseline creatinine near 1.3. Etiology is use of calcineurin admitted and solitary kidney. GFR at baseline. 4. Hypertension with chronic kidney disease. Stable. Plan: continue with IV fluids Continue with current immune of suppressive medications Repeat labs in a.m.
--- NOTE | 2024-07-14 17:54 | P.PN ---
Subjective Progress Note Date: 07/14/24 HISTORY OF PRESENT ILLNESS: This is a 68-year-old male with a previous medical history significant for co ronary artery disease status post PCI of the proximal obtuse marginal 1, LAD, and mid RCA 05/08/2018 history of hypertension and hypertensive cardiovascular disease, hyperlipidemia, history of end-stage renal disease on hemodialysis received a renal transplant at [facility] 07/22/2022, patient has been under the care of the transplant on regular basis, history of prediabetes, paroxysmal atrial fibrillation, enlarged prostate, glaucoma, as well, patient has been doing fine up till recently when he came to the office on June 30, 2024 when he developed to have a significant vesicular eruptions in his upper extremities as well as his abdomen nothing on his legs, at that time a viral panel was done, initially the varicella-zoster virus came back positive for IgG, however the IgM index was positive at 0.94 normal is up to 0.9 it was recommended to repeat the titers I have recommended to send the labs to the transplant team at [facility] for further evaluation recommendation, chriss kirkpatrick ended up going to dermatology had a biopsy that came back positive for varicella-zoster virus patient does have worsening of the rash all over his body he was seen in the emergency department at [facility] it was recommended for the patient to be transferred to [facility] but the patient ended up staying in the hospital he will be seen in consultation by infectious disease as well as by nephrology, he will be started on IV acyclovir for further evaluation and treatment. 07/11: Patient sitting up in bed in no apparent distress, he denies any fever or chills at this time, he has been receiving acyclovir 650 mg IV piggyback every 8 hours, he was seen earlier by nephrology as well as by infectious disease, Dr. Rodriguez has decreased his dose of CellCept to 500 mg orally once every day, monitor the patient symptoms very closely, his eruptions on his face and his upper extremities are much better and starting to scab off. Patient denies any headache at this time, he denies any mental status changes at this time, he is ambulating very well, he continues to be in droplet precautions. 07/12: Patient is sitting up in bed in no apparent distress, he denies any chest pain, shortness of breath, he is eating well, he has no poor appetite, he has no nausea vomiting or diarrhea, he has been tolerating treatment very well, the scabs on his face is much better today, he denies any headache at this point no fever or chills at this time continue current treatment plan, maintain the patient on IV acyclovir for another 1 or 2 days. 07/13: Patient is sitting up at the edge of the bed, he is ambulating very well, his crusted lesions on his face and upper chest and back is much better, he complains of some stinging pain, but stated that Tylenol does work for him, he does not want to be started on any new medicine such as Lyrica, he has been followed by infectious disease as well as by nephrology, continue current treatment plan, will follow-up with the patient very closely continue IV acyclovir 650 mg IV piggyback every 8 hours, will recheck his labs tomorrow morning 09/13: Patient is doing a lot better today, his scabs on his face is much better, he denies any chest pain, fever or chills, no abdominal pain, nausea vomiting or diarrhea, will continue IV acyclovir for another 24 hours, hopefully the patient can be discharged home in the next 24 hours. REVIEW OF SYSTEMS: Constitutional: No documented fever, no chills, no night sweats. No weight change. No weakness, fatigue or lethargy. No daytime sleepiness. EENT: No headache. No blurred vision or double vision, no loss of vision. No loss of Hearing, no ringing in the ears, no dizziness. No nasal drainage or congestion. No epistaxis. No sore throat. Lungs: No shortness of breath, no cough, no sputum production. No wheezing. Reports dyspnea with activity. Cardiovascular: No chest pain, no lower extremity edema. No palpitations. No paroxysmal nocturnal dyspnea. No orthopnea. No lightheadedness or dizziness. No syncopal episodes. Abdominal: Reports abdominal pain. No nausea, vomiting. No diarrhea. No constipation. No bloody or tarry stools reports loss of appetite. Genitourinary: No dysuria, increased frequency, urgency. No urinary retention. Musculoskeletal: No myalgias. No muscle weakness, no gait dysfunction, no frequent falls. No back pain. No neck pain. Integumentary: No wounds, positive for lesions. Positive for diffuse disseminated vesicular eruptions on his face upper extremities lower extremities and chest abdomen and torso. Neurologic: No aphasia. No facial droop. No change in mentation. No head injury. No headache. No paralysis. No paresthesia. Psychiatric: No depression. No anxiety. No mood swings. Endocrine: No abnormal blood sugars. No weight change. PHYSICAL EXAMINATION: General: 68-year-old male laying down in bed in no apparent distress. HEENT: Head is atraumatic, normocephalic, pupils were equal round reactive to light and recommendation, extraocular muscle movement were intact, sclera nonicteric, conjunctivae were pale, mucous membranes of the mouth are somewhat dry. Neck: Supple, no JVP, normal carotid upstroke bilaterally, no lymphadenopathy. Chest: Decreased breath sounds at the bases, few rhonchi, no expiratory wheezes, no chest wall tenderness, no intercostal retractions. Heart: First heart sound is normal, second heart sound is normal there is systolic ejection murmur 2/6 located in the left sternal border. Abdomen: Soft, nontender, nondistended, positive bowel sounds. Extremities: There is no edema no calf tenderness DP +2 bilaterally. Neurologic examination: Patient is awake alert and oriented x3, cranial nerves II-12 appear grossly intact, muscle power were 5 out of 5 in upper extremities and 5 out of 5 in bilateral lower extremities, deep tendon reflexes normal bilaterally. Skin: There is vesicular eruptions involving the upper extremities lower extremities chest and torso due to disseminated varicella-zoster virus. ASSESSMENT AND PLAN: 1. 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 Patient varicella-zoster titer IgG and IgM were positive patient will be started on IV acyclovir 650 mg IV piggyback every 8 hours, infectious disease consultation 2. History of kidney transplant that was on the send on July 22, 2022. We will consult nephrology regarding his immunosuppressive medication. For now restart prednisone 5 mg once every day, Prograf 2 mg orally twice every day, CellCept 500 mg orally once every day. 3. Coronary artery disease status post PCI in 2019. Patient follows with cardiology on a regular basis, continue patient on metoprolol 50 mg orally twice every day, continue patient on atorvastatin 20 mg orally once every day, aspirin 81 g once every day, monitor the patient symptoms very closely. 4. Prediabetes. Continue low-carb diet, monitor the patient hemoglobin A1c. 5. Hypertension and hypertensive cardiovascular disease. Continue patient on metoprolol 50 mg orally twice every day, amlodipine 10 mg once every day, mo nitor the patient blood pressure very closely. 6. Mixed hyperlipidemia. Continue patient on atorvastatin 20 mg once every day, monitor lipid panel, keep LDL 55-70. 7. Paroxysmal atrial fibrillation. Continue patient on metoprolol 50 mg orally twice every day, Eliquis 5 mg orally twice every day. 8. Enlarged prostate. Continue tamsulosin 0.4 mg once every day. 9. Glaucoma. Continue current eyedrops. With brimonidine. 10. Hypomagnesemia. Continue magnesium supplement to 50 mg orally once every day. 11. DVT prophylaxis. Continue Eliquis 5 mg orally twice every day. 12. GI prophylaxis. Continue famotidine 20 mg orally once every day. 13. Increase activity. 14. Home tomorrow morning Objective - Vital Signs Vital signs: Vital Signs Temp 97.9 F 07/14/24 07:44 Pulse 63 07/14/24 09:50 Resp 18 07/14/24 09:50 BP 154/67 07/14/24 07:44 Pulse Ox 97 07/14/24 07:44 FiO2 Intake & Output 07/13/24 07/14/24 07/14/24 18:59 06:59 18:59 Other: Voiding Method Toilet # Voids 1 1 - Labs CBC & Chem 7: 07/13/24 08:12 07/13/24 08:12 Labs: Microbiology - Last 24 Hours (Table) 07/10/24 11:28 Blood Culture - Preliminary Blood
--- NOTE | 2024-07-14 21:47 | P.PN ---
Subjective Progress Note Date: 07/14/24 Principal diagnosis: Reason for follow-up is disseminated shingles Patient is a 68-year-old male with a past medical history significant for coronary disease hypertension hyperlipidemia end-stage renal disease in this patient who is status post renal transplant and is currently on immunosuppressive medication presenting the hospital with disseminated rash with outpatient biopsy suspicious for shingles. On today's evaluation that is 07/14/2024,the patient denies any fever or any chills, patient is breathing comfortably on room air, the patient denies chest pain shortness of breath and no significant cough, patient denies abdominal pain, no nausea vomiting or diarrhea. No new rash has been noticed. No new lab has been obtained today Objective - Vital Signs Vital signs: Vital Signs Temp 97.9 F 07/14/24 07:44 Pulse 63 07/14/24 09:50 Resp 18 07/14/24 09:50 BP 154/67 07/14/24 07:44 Pulse Ox 97 07/14/24 07:44 FiO2 Intake & Output 07/13/24 07/14/24 07/14/24 18:59 06:59 18:59 Other: Voiding Method Toilet # Voids 1 1 - Exam GENERAL DESCRIPTION: An elderly male up in bed in no distress RESPIRATORY SYSTEM: Unlabored breathing SKIN: Disseminated rash which is mostly crusting no new rash was noticed - Labs CBC & Chem 7: 07/13/24 08:12 07/13/24 08:12 Labs: Microbiology - Last 24 Hours (Table) 07/10/24 11:28 Blood Culture - Preliminary Blood Assessment and Plan (1) Rash Current Visit: Yes Status: Acute Code(s): R21 - RASH AND OTHER NONSPECIFIC SKIN ERUPTION SNOMED Code(s): 034681001 (2) Disseminated zoster Current Visit: Yes Status: Acute Code(s): B02.7 - DISSEMINATED ZOSTER SNOMED Code(s): 47876236 Plan: 1patient presented to hospital with generalized rash which is mostly vesicular/pustular crusting on the facial area and did have a biopsy done by the master craftsman and reported positive for herpes zoster. 2patient did have swab obtained from the lesion which came back positive for VZV confirming the diagnosis 3Airborne isolation/negative pressure room 4patient slowly clinically improving and no new rash has been noticed plan is to continue the patient on acyclovir while inpatient however will be able to finish therapy with oral Valtrex Dictation was produced using [employer] dictation software. please excuse any grammatical, word or spelling errors. Time with Patient: Less than 30
[2024-07-15 11:18] LABS: African American GFR (CKD) 70 (>60 ml/min/1.73 sqM); Anion Gap 3 mmol/L; Blood Urea Nitrogen 15 mg/dL (9-20); Calcium 9.3 mg/dL (8.4-10.2); Carbon Dioxide 29 mmol/L (22-30); Chloride 100 mmol/L (98-107); Glucose 106 mg/dL (74-99); Non-African American GFR(CKD) 60 (>60 ml/min/1.73 sqM); Potassium 4.5 mmol/L (3.5-5.1); Sodium 132 mmol/L (137-145)
--- NOTE | 2024-07-15 13:01 | P.PN ---
Subjective patient is seen for follow-up for chronic kidney disease and renal transplant. Renal function at baseline. Maintained on IV acyclovir for disseminated herpes zoster infection. No significant complaints today. Tolerating oral intake. Objective - Vital Signs Vital signs: Vital Signs Temp 97.7 F 07/15/24 08:00 Pulse 56 L 07/15/24 09:47 Resp 18 07/15/24 09:47 BP 132/70 07/15/24 08:00 Pulse Ox 99 07/15/24 08:00 FiO2 Intake & Output 07/14/24 07/15/24 07/15/24 18:59 06:59 18:59 Intake Total 250 Balance 250 Intake: Oral 250 Other: Voiding Method Toilet Toilet Toilet # Voids 4 1 3 # Bowel Movements 1 - Exam patient is awake, comfortable, no acute distress. Abdomen is soft nontender Examination of lower extremities shows no evidence of edema OPERATIONAL REVIEW SERGEANT exam grossly intact - Labs CBC & Chem 7: 07/13/24 08:12 07/15/24 10:46 Labs: Abnormal Lab Results - Last 24 Hours (Table) 07/15/24 Range/Units 10:46 Sodium 132 L (137-145) mmol/L Glucose 106 H (74-99) mg/dL Assessment and Plan Assessment: 1. Status post donor renal transplant in 2021 at [facility]. 2. Disseminated zoster infection maintained on IV acyclovir. ID following. 3. Chronic kidney disease stage IIIa with baseline creatinine near 1.3. Etiology is use of calcineurin admitted and solitary kidney. GFR at baseline. 4. Hypertension with chronic kidney disease. Stable. Plan: continue with IV fluids Continue with current immune of suppressive medications Repeat labs
--- NOTE | 2024-07-15 14:31 | P.PN ---
Subjective Progress Note Date: 07/15/24 Principal diagnosis: Reason for follow-up is disseminated shingles Patient is a 68-year-old male with a past medical history significant for coronary disease hypertension hyperlipidemia end-stage renal disease in this patient who is status post renal transplant and is currently on immunosuppressive medication presenting the hospital with disseminated rash with outpatient biopsy suspicious for shingles. On today's evaluation that is 07/15/2024,the patient remains to be afebrile, patient is on room air not requiring supplemental oxygen and denies any shortness of breath no chest pain or cough.Patient denies having any nausea or vomiting, no abdominal pain and no diarrhea overall rash has decreased in intensity no new rash noticed. Patient did have a creatinine 1.23 blood culture has been negative Objective - Vital Signs Vital signs: Vital Signs Temp 97.7 F 07/15/24 08:00 Pulse 56 L 07/15/24 09:47 Resp 18 07/15/24 09:47 BP 132/70 07/15/24 08:00 Pulse Ox 99 07/15/24 08:00 FiO2 Intake & Output 07/14/24 07/15/24 07/15/24 18:59 06:59 18:59 Intake Total 250 Balance 250 Intake: Oral 250 Other: Voiding Method Toilet Toilet Toilet # Voids 4 1 3 # Bowel Movements 1 - Exam GENERAL DESCRIPTION: An elderly male up in bed in no distress RESPIRATORY SYSTEM: Unlabored breathing SKIN: Disseminated rash which is mostly crusting no new rash was noticed - Labs CBC & Chem 7: 07/13/24 08:12 07/15/24 10:46 Labs: Abnormal Lab Results - Last 24 Hours (Table) 07/15/24 Range/Units 10:46 Sodium 132 L (137-145) mmol/L Glucose 106 H (74-99) mg/dL Assessment and Plan (1) Rash Current Visit: Yes Status: Acute Code(s): R21 - RASH AND OTHER NONSPECIFIC SKIN ERUPTION SNOMED Code(s): 718439397 (2) Disseminated zoster Current Visit: Yes Status: Acute Code(s): B02.7 - DISSEMINATED ZOSTER SNOMED Code(s): 71238215 Plan: 1patient presented to hospital with generalized rash which is mostly vesicular/pustular crusting on the facial area and did have a biopsy done by the senior director and reported positive for herpes zoster. 2patient did have swab obtained from the lesion which came back positive for VZV confirming the diagnosis 3Airborne isolation/negative pressure room 4patient rash is crusting count no new rash has been noticed we will continue with IV acyclovir plan is to finish therapy with oral Valtrex Dictation was produced using [employer] dictation software. please excuse any grammatical, word or spelling errors. Time with Patient: Less than 30
--- NOTE | 2024-07-15 16:39 | P.PN ---
Subjective Progress Note Date: 07/15/24 HISTORY OF PRESENT ILLNESS: This is a 68-year-old male with a previous medical history significant for co ronary artery disease status post PCI of the proximal obtuse marginal 1, LAD, and mid RCA 05/08/2018 history of hypertension and hypertensive cardiovascular disease, hyperlipidemia, history of end-stage renal disease on hemodialysis received a renal transplant at [facility] 07/22/2022, patient has been under the care of the transplant on regular basis, history of prediabetes, paroxysmal atrial fibrillation, enlarged prostate, glaucoma, as well, patient has been doing fine up till recently when he came to the office on June 30, 2024 when he developed to have a significant vesicular eruptions in his upper extremities as well as his abdomen nothing on his legs, at that time a viral panel was done, initially the varicella-zoster virus came back positive for IgG, however the IgM index was positive at 0.94 normal is up to 0.9 it was recommended to repeat the titers I have recommended to send the labs to the transplant team at [facility] for further evaluation recommendation, chriss kirkpatrick ended up going to dermatology had a biopsy that came back positive for varicella-zoster virus patient does have worsening of the rash all over his body he was seen in the emergency department at [facility] it was recommended for the patient to be transferred to [facility] but the patient ended up staying in the hospital he will be seen in consultation by infectious disease as well as by nephrology, he will be started on IV acyclovir for further evaluation and treatment. 07/11: Patient sitting up in bed in no apparent distress, he denies any fever or chills at this time, he has been receiving acyclovir 650 mg IV piggyback every 8 hours, he was seen earlier by nephrology as well as by infectious disease, Dr. Rodriguez has decreased his dose of CellCept to 500 mg orally once every day, monitor the patient symptoms very closely, his eruptions on his face and his upper extremities are much better and starting to scab off. Patient denies any headache at this time, he denies any mental status changes at this time, he is ambulating very well, he continues to be in droplet precautions. 07/12: Patient is sitting up in bed in no apparent distress, he denies any chest pain, shortness of breath, he is eating well, he has no poor appetite, he has no nausea vomiting or diarrhea, he has been tolerating treatment very well, the scabs on his face is much better today, he denies any headache at this point no fever or chills at this time continue current treatment plan, maintain the patient on IV acyclovir for another 1 or 2 days. 07/13: Patient is sitting up at the edge of the bed, he is ambulating very well, his crusted lesions on his face and upper chest and back is much better, he complains of some stinging pain, but stated that Tylenol does work for him, he does not want to be started on any new medicine such as Lyrica, he has been followed by infectious disease as well as by nephrology, continue current treatment plan, will follow-up with the patient very closely continue IV acyclovir 650 mg IV piggyback every 8 hours, will recheck his labs tomorrow morning 07/14: Patient is doing a lot better today, his scabs on his face is much better, he denies any chest pain, fever or chills, no abdominal pain, nausea vomiting or diarrhea, will continue IV acyclovir for another 24 hours, hopefully the patient can be discharged home in the next 24 hours. 07/15: Patient is sitting up in a chair no apparent distress, he is feeling better today, he continues to have some scabbing on his face, upper chest and back, better in the lower extremities, he has no fever or chills at this time he has no abdominal pain, no nausea vomiting or diarrhea, he will continue to be on acyclovir 650 mg of piggyback every 8 hours for another 24 hours, hopefully the patient will be able to be discharged home on Sunday. REVIEW OF SYSTEMS: Constitutional: No documented fever, no chills, no night sweats. No weight change. No weakness, fatigue or lethargy. No daytime sleepiness. EENT: No headache. No blurred vision or double vision, no loss of vision. No loss of Hearing, no ringing in the ears, no dizziness. No nasal drainage or congestion. No epistaxis. No sore throat. Lungs: No shortness of breath, no cough, no sputum production. No wheezing. Reports dyspnea with activity. Cardiovascular: No chest pain, no lower extremity edema. No palpitations. No paroxysmal nocturnal dyspnea. No orthopnea. No lightheadedness or dizziness. No syncopal episodes. Abdominal: Reports abdominal pain. No nausea, vomiting. No diarrhea. No constipation. No bloody or tarry stools reports loss of appetite. Genitourinary: No dysuria, increased frequency, urgency. No urinary retention. Musculoskeletal: No myalgias. No muscle weakness, no gait dysfunction, no frequ ent falls. No back pain. No neck pain. Integumentary: No wounds, positive for lesions. Positive for diffuse disseminated vesicular eruptions on his face upper extremities lower extremities and chest abdomen and torso. Neurologic: No aphasia. No facial droop. No change in mentation. No head injury. No headache. No paralysis. No paresthesia. Psychiatric: No depression. No anxiety. No mood swings. Endocrine: No abnormal blood sugars. No weight change. PHYSICAL EXAMINATION: General: 68-year-old male laying down in bed in no apparent distress. HEENT: Head is atraumatic, normocephalic, pupils were equal round reactive to light and recommendation, extraocular muscle movement were intact, sclera nonicteric, conjunctivae were pale, mucous membranes of the mouth are somewhat dry. Neck: Supple, no JVP, normal carotid upstroke bilaterally, no lymphadenopathy. Chest: Decreased breath sounds at the bases, few rhonchi, no expiratory wheezes, no chest wall tenderness, no intercostal retractions. Heart: First heart sound is normal, second heart sound is normal there is systolic ejection murmur 2/6 located in the left sternal border. Abdomen: Soft, nontender, nondistended, positive bowel sounds. Extremities: There is no edema no calf tenderness DP +2 bilaterally. Neurologic examination: Patient is awake alert and oriented x3, cranial nerves II-12 appear grossly intact, muscle power were 5 out of 5 in upper extremities and 5 out of 5 in bilateral lower extremities, deep tendon reflexes normal bilaterally. Skin: There is vesicular eruptions involving the upper extremities lower extr emities chest and torso due to disseminated varicella-zoster virus. ASSESSMENT AND PLAN: 1. 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 Patient varicella-zoster titer IgG and IgM were positive patient will be started on IV acyclovir 650 mg IV piggyback every 8 hours, infectious disease consultation 2. History of kidney transplant that was on the send on July 22, 2022. We will consult nephrology regarding his immunosuppressive medication. For now restart prednisone 5 mg once every day, Prograf 2 mg orally twice every day, CellCept 500 mg orally once every day. 3. Coronary artery disease status post PCI in 2019. Patient follows with cardiology on a regular basis, continue patient on metoprolol 50 mg orally twice every day, continue patient on atorvastatin 20 mg orally once every day, aspirin 81 g once every day, monitor the patient symptoms very closely. 4. Prediabetes. Continue low-carb diet, monitor the patient hemoglobin A1c. 5. Hypertension and hypertensive cardiovascular disease. Continue patient on metoprolol 50 mg orally twice every day, amlodipine 10 mg once every day, monitor the patient blood pressure very closely. 6. Mixed hyperlipidemia. Continue patient on atorvastatin 20 mg once every day, monitor lipid panel, keep LDL 55-70. 7. Paroxysmal atrial fibrillation. Continue patient on metoprolol 50 mg orally twice every day, Eliquis 5 mg orally twice every day. 8. Enlarged prostate. Continue tamsulosin 0.4 mg once every day. 9. Glaucoma. Continue current eyedrops. With brimonidine. 10. Hypomagnesemia. Continue magnesium supplement to 50 mg orally once every day. 11. DVT prophylaxis. Continue Eliquis 5 mg orally twice every day. 12. GI prophylaxis. Continue famotidine 20 mg orally once every day. 13. Increase activity. 14. Home in the next 1 or 2 days if okay with ID. Objective - Vital Signs Vital signs: Vital Signs Temp 97.5 F L 07/15/24 14:59 Pulse 62 07/15/24 14:59 Resp 16 07/15/24 14:59 BP 143/68 07/15/24 14:59 Pulse Ox 98 07/15/24 14:59 FiO2 Intake & Output 07/14/24 07/15/24 07/15/24 18:59 06:59 18:59 Intake Total 250 Balance 250 Intake: Oral 250 Other: Voiding Method Toilet Toilet Toilet # Voids 4 1 3 # Bowel Movements 1 - Labs CBC & Chem 7: 07/13/24 08:12 07/15/24 10:46 Labs: Abnormal Lab Results - Last 24 Hours (Table) 07/15/24 Range/Units 10:46 Sodium 132 L (137-145) mmol/L Glucose 106 H (74-99) mg/dL
[2024-07-16 08:35] LABS: Basophils # (A) 0.01 X 10*3/uL (0.00-0.10); Basophils % (A) 0.2 %; Eosinophils # (A) 0.03 X 10*3/uL (0.04-0.35); Eosinophils % (A) 0.7 %; HCT 38.5 % (39.6-50.0); HGB 11.7 g/dL (13.0-17.0); Lymphocytes # (A) 0.49 X 10*3/uL (0.90-5.00); Lymphocytes % (A) 11.7 %; MCH 25.7 pg (27.0-32.0); MCHC 30.4 g/dL (32.0-37.0); MCV 84.4 FL (80.0-97.0); Monocytes # (A) 0.54 X 10*3/uL (0.20-1.00); Monocytes % (A) 12.9 %; NRBC Per 100 WBC 0 X 10*3/uL (0.00-0.01); Neutrophils # (A) 2.94 X 10*3/uL (1.80-7.70); Neutrophils % (A) 70.4 %; Platelet Count 124 X 10*3/uL (140-440); RBC 4.56 X 10*6/uL (4.40-5.60); RDW 14.9 % (11.5-14.5); WBC 4.18 X 10*3/uL (4.50-10.00)
[2024-07-16 08:56] LABS: ALT 48 U/L (10-49); AST 33 U/L (14-35); Albumin 3.2 g/dL (3.8-4.9); Albumin/Globulin Ratio 2.29 Ratio (1.60-3.17); Alkaline Phosphatase 103 U/L (41-126); Blood Urea Nitrogen 18.2 mg/dL (9.0-27.0); Carbon Dioxide 23.7 mmol/L (21.6-31.8); Chloride 102 mmol/L (96-109); Globulin 1.4 g/dL (1.6-3.3); Glucose 125 mg/dL (70-110); Potassium 4.7 mmol/L (3.5-5.5); Sodium 135 mmol/L (135-145); Total Bilirubin 0.3 mg/dL (0.3-1.2); Total Protein 4.6 g/dL (6.2-8.2)
--- NOTE | 2024-07-16 12:50 | P.PN ---
Subjective patient is seen for follow-up for chronic kidney disease and renal transplant. Renal function at baseline. Maintained on IV acyclovir for disseminated herpes zoster infection. No significant complaints today. Tolerating oral intake. Tacrolimus level resulted at 10.5 on 07/12/2024 Objective - Vital Signs Vital signs: Vital Signs Temp 97.8 F 07/16/24 07:34 Pulse 70 07/16/24 07:34 Resp 18 07/16/24 07:34 BP 143/63 07/16/24 07:34 Pulse Ox 95 07/16/24 07:34 FiO2 Intake & Output 07/15/24 07/16/24 07/16/24 18:59 06:59 18:59 Intake Total 550 540 Output Total 400 Balance 150 540 Intake: Oral 550 540 Output: Urine 400 Other: Voiding Method Toilet Toilet # Voids 3 2 2 # Bowel Movements 1 1 - Exam patient is awake, comfortable, no acute distress. Abdomen is soft nontender Examination of lower extremities shows no evidence of edema [employer] exam grossly intact - Labs CBC & Chem 7: 07/16/24 02:43 07/16/24 02:43 Labs: Abnormal Lab Results - Last 24 Hours (Table) 07/16/24 07/16/24 Range/Units 02:43 02:43 WBC 4.18 L (4.50-10.00) X 10*3/uL Hgb 11.7 L (13.0-17.0) g/dL Hct 38.5 L (39.6-50.0) % MCH 25.7 L (27.0-32.0) pg MCHC 30.4 L (32.0-37.0) g/dL RDW 14.9 H (11.5-14.5) % Plt Count 124 L (140-440) X 10*3/uL Immature Gran # 0.17 H (0.00-0.04) X 10*3/uL Lymphocytes # 0.49 L (0.90-5.00) X 10*3/uL Eosinophils # 0.03 L (0.04-0.35) X 10*3/uL Glucose 125 H (70-110) mg/dL Total Protein 4.6 L (6.2-8.2) g/dL Albumin 3.2 L (3.8-4.9) g/dL Globulin 1.4 L (1.6-3.3) g/dL Microbiology - Last 24 Hours (Table) 07/10/24 11:28 Blood Culture - Final Blood Assessment and Plan Assessment: 1. Status post donor renal transplant in 2021 at [facility]. Tacrolimus level X.5 on 07/12/2024. Prograf will be decreased to 2 mg a.m. and 1 mg p.m. CellCept increased to 500 mg twice a day and repeat level of tacrolimus in 1 week. 2. Disseminated zoster infection maintained on IV acyclovir. ID following. 3. Chronic kidney disease stage IIIa with baseline creatinine near 1.3. Etiology is use of calcineurin admitted and solitary kidney. GFR at baseline. 4. Hypertension with chronic kidney disease. Stable. Plan: decrease Prograf to 2 mg a.m. and 1 mg PM. Increase CellCept to 500 mg twice a day Follow-up in the office in one week with repeat tacrolimus level. Discussed with patient
[2024-07-16 14:11] VITALS: BP 157/72; PULSE 58; RESP 17; TEMP 97.9
--- NOTE | 2024-07-16 15:04 | P.DS ---
Providers Date of admission: 07/10/24 14:05 Expected date of discharge: 07/16/24 Attending physician: Estrellita Bains Consults: 07/10/24 13:23 Consult Physician Urgent Consulting Provider: Fer Phipps Consult Reason/Comments: Renal transplant patient Do you want consulting provider notified?: Yes Consult Physician Urgent Consulting Provider: Tristian Nuñez Consult Reason/Comments: Disseminated herpes zoster Do you want consulting provider notified?: Yes Primary care physician: [facility] Course: HISTORY OF PRESENT ILLNESS: This is a 68-year-old male with a previous medical history significant for coronary artery disease status post PCI of the proximal obtuse marginal 1, LAD, and mid RCA 05/08/2018 history of hypertension and hypertensive cardiovascular disease, hyperlipidemia, history of end-stage renal disease on hemodialysis received a renal transplant at [facility] 07/22/2022, patient has been under the care of the transplant on regular basis, history of prediabetes, paroxysmal atrial fibrillation, enlarged prostate, glaucoma, as well, patient has been doing fine up till recently when he came to the office on June 30, 2024 when he developed to have a significant vesicular eruptions in his upper extremities as well as his abdomen nothing on his legs, at that time a viral panel was done, initially the varicella-zoster virus came back positive for IgG, however the IgM index was positive at 0.94 normal is up to 0.9 it was recommended to repeat the titers I have recommended to send the labs to the transplant team at [facility] for further evaluation recommendation, patient ended up going to dermatology had a biopsy that came back positive for varicella-zoster virus patient does have worsening of the rash all over his body he was seen in the emergency department at [facility] it was recommended for the patient to be transferred to [facility] but the patient ended up staying in the hospital he will be seen in consultation by infectious disease as well as by nephrology, he will be started on IV acyclovir for further evaluation and treatment. 07/11: Patient sitting up in bed in no apparent distress, he denies any fever or chills at this time, he has been receiving acyclovir 650 mg IV piggyback every 8 hours, he was seen earlier by nephrology as well as by infectious disease, Dr. Rodriguez has decreased his dose of CellCept to 500 mg orally once every day, monitor the patient symptoms very closely, his eruptions on his face and his upper extremities are much better and starting to scab off. Patient denies any headache at this time, he denies any mental status changes at this time, he is ambulating very well, he continues to be in droplet precautions. 07/12: Patient is sitting up in bed in no apparent distress, he denies any chest pain, shortness of breath, he is eating well, he has no poor appetite, he has no nausea vomiting or diarrhea, he has been tolerating treatment very well, the scabs on his face is much better today, he denies any headache at this point no fever or chills at this time continue current treatment plan, maintain the patient on IV acyclovir for another 1 or 2 days. 07/13: Patient is sitting up at the edge of the bed, he is ambulating very well, his crusted lesions on his face and upper chest and back is much better, he complains of some stinging pain, but stated that Tylenol does work for him, he does not want to be started on any new medicine such as Lyrica, he has been followed by infectious disease as well as by nephrology, continue current treatment plan, will follow-up with the patient very closely continue IV acyclovir 650 mg IV piggyback every 8 hours, will recheck his labs tomorrow morning 07/14: Patient is doing a lot better today, his scabs on his face is much better, he denies any chest pain, fever or chills, no abdominal pain, nausea vomiting or diarrhea, will continue IV acyclovir for another 24 hours, hopefully the patient can be discharged home in the next 24 hours. 07/15: Patient is sitting up in a chair no apparent distress, he is feeling better today, he continues to have some scabbing on his face, upper chest and back, better in the lower extremities, he has no fever or chills at this time he has no abdominal pain, no nausea vomiting or diarrhea, he will continue to be on acyclovir 650 mg of piggyback every 8 hours for another 24 hours, hopefully the patient will be able to be discharged home on Sunday. 07/16: Patient is sitting up in chair no apparent distress, his lesions are crusting over, no new lesions at this point in time, we will switch the patient to oral Valtrex Valtrex 1 g orally 3 times a day for the next 5 days, DC airborne precautions at this point in time, as the patient has no more new lesions, he has been in the hospital for quite some times, he has been treated with acyclovir 650 mg of piggyback every 8 hours, patient is to stay away from people who are immune suppressed and infants as well, meanwhile he can use a mask in the community otherwise at home he should be fine. Nephrology recommended to decrease his Prograf to 2 mg in the morning 1 mg in the evening and increase CellCept to 500 mg orally twice every day, he will follow-up with them as an outpatient 1 week, to repeat his Prograf level, patient is to follow- up with me as an outpatient 1 week. Discharge diagnoses: 1. 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 2. History of kidney transplant that was on the send on July 22, 2022. 3. Coronary artery disease status post PCI in 2019. 4. Prediabetes. 5. Hypertension and hypertensive cardiovascular disease. 6. Mixed hyperlipidemia. 7. Paroxysmal atrial fibrillation. 8. Enlarged prostate. 9. Glaucoma. 10. Hypomagnesemia. Patient Condition at Discharge: Stable Plan - Discharge Summary Discharge Rx Participant: No New Discharge Prescriptions: New valACYclovir HCL [Valtrex] 1,000 mg PO TID #15 tablet Continue Tamsulosin [Flomax] 0.4 mg PO DAILY Nitroglycerin Sl Tabs [Nitrostat] 0.4 mg SUBLINGUAL Q5M PRN PRN Reason: Chest Pain Atorvastatin [Lipitor] 40 mg PO DAILY Aspirin [Adult Low Dose Aspirin EC] 81 mg PO DAILY predniSONE 5 mg PO DAILY Tacrolimus [Prograf] 2 mg PO BID Cholecalciferol [Vitamin D3 (125 Mcg = 5000 Iu)] 125 mcg PO DAILY Famotidine [Pepcid] 20 mg PO BID Apixaban [Eliquis] 5 mg PO BID Magnesium 500 mg PO DAILY mycophenolate mofetiL [Cellcept] 1,000 mg PO BID Brimonidine Tartrate [Alphagan P 0.2% Ophth Soln] 1 drop LEFT EYE DAILY Metoprolol Tartrate [Lopressor] 50 mg PO BID amLODIPine [Norvasc] 10 mg PO DAILY Discontinued valACYclovir HCL [Valacyclovir] 1,000 mg PO TID Discharge Medication List Tamsulosin [Flomax] 0.4 mg PO DAILY 04/01/19 [History] Nitroglycerin Sl Tabs [Nitrostat] 0.4 mg SUBLINGUAL Q5M PRN 04/28/19 [History] Aspirin [Adult Low Dose Aspirin EC] 81 mg PO DAILY 04/12/20 [History] Atorvastatin [Lipitor] 40 mg PO DAILY 04/12/20 [History] Apixaban [Eliquis] 5 mg PO BID 07/10/24 [History] Brimonidine Tartrate [Alphagan P 0.2% [facility]] 1 drop LEFT EYE DAILY 07/10/24 [History] Cholecalciferol [Vitamin D3 (125 Mcg = 5000 Iu)] 125 mcg PO DAILY 07/10/24 [History] Famotidine [Pepcid] 20 mg PO BID 07/10/24 [History] Magnesium 500 mg PO DAILY 07/10/24 [History] Metoprolol Tartrate [Lopressor] 50 mg PO BID 07/10/24 [History] Tacrolimus [Prograf] 2 mg PO BID 07/10/24 [History] amLODIPine [Norvasc] 10 mg PO DAILY 07/10/24 [History] mycophenolate mofetiL [Cellcept] 1,000 mg PO BID 07/10/24 [History] predniSONE 5 mg PO DAILY 07/10/24 [History] valACYclovir HCL [Valtrex] 1,000 mg PO TID #15 tablet 07/16/24 [Rx] Follow up Appointment(s)/Referral(s): Esther Warner MD [STAFF PHYSICIAN] - 1 Week (Must have BMP and prograf level done 2DAYS prior to appoitment. Must be seen next week per Timmy office will call with appointment time) Estrellita Bains MD [Primary Care Provider] - 1 Week (office will call with appointment time) Tristian Nuñez MD [STAFF PHYSICIAN] - 07/21/24 2:45 pm Patient Instructions/Handouts: Shingles (DC) Activity/Diet/Wound Care/Special Instructions: Per Timmy take 2mg of Prograf in morning and 1mg at night. Celceft 500 BID Discharge Disposition: HOME SELF-CARE
[2024-07-16] MEDS ORDERED: ACYCLOVIR SODIUM 650 MG in SODIUM CHLORIDE 0.9% 100 ML IVPB SCH (18:00)
[2024-07-17] MEDS ORDERED: FAMOTIDINE 20 MG TAB PO SCH (09:00)
--- NOTE | 2024-07-17 12:43 | P.PN ---
Subjective Progress Note Date: 07/16/24 Principal diagnosis: Reason for follow-up is disseminated shingles Patient is a 68-year-old male with a past medical history significant for coronary disease hypertension hyperlipidemia end-stage renal disease in this patient who is status post renal transplant and is currently on immunosuppressive medication presenting the hospital with disseminated rash with outpatient biopsy suspicious for shingles. On today's evaluation that is 07/16/2024, the patient continues to be afebrile, the patient is on room air and breathing comfortably, the Pt denies having any chest pain or cough, the patient denies having any abdominal pain no vomiting or any diarrhea overall the rash has decreased in intensity and no new rash has been noticed. Patient did have white count of 4.18, creatinine is 1.3 blood culture has been negative Objective - Vital Signs Vital signs: Vital Signs Temp 97.8 F 07/16/24 07:34 Pulse 70 07/16/24 07:34 Resp 18 07/16/24 07:34 BP 143/63 07/16/24 07:34 Pulse Ox 95 07/16/24 07:34 FiO2 Intake & Output 07/15/24 07/16/24 07/16/24 18:59 06:59 18:59 Intake Total 550 540 Output Total 400 Balance 150 540 Intake: Oral 550 540 Output: Urine 400 Other: Voiding Method Toilet Toilet # Voids 3 2 2 # Bowel Movements 1 1 - Exam GENERAL DESCRIPTION: An elderly male up in bed in no distress RESPIRATORY SYSTEM: Unlabored breathing SKIN: Disseminated rash which is mostly crusting no new rash was noticed - Labs CBC & Chem 7: 07/16/24 02:43 07/16/24 02:43 Labs: Abnormal Lab Results - Last 24 Hours (Table) 07/16/24 07/16/24 Range/Units 02:43 02:43 WBC 4.18 L (4.50-10.00) X 10*3/uL Hgb 11.7 L (13.0-17.0) g/dL Hct 38.5 L (39.6-50.0) % MCH 25.7 L (27.0-32.0) pg MCHC 30.4 L (32.0-37.0) g/dL RDW 14.9 H (11.5-14.5) % Plt Count 124 L (140-440) X 10*3/uL Immature Gran # 0.17 H (0.00-0.04) X 10*3/uL Lymphocytes # 0.49 L (0.90-5.00) X 10*3/uL Eosinophils # 0.03 L (0.04-0.35) X 10*3/uL Glucose 125 H (70-110) mg/dL Total Protein 4.6 L (6.2-8.2) g/dL Albumin 3.2 L (3.8-4.9) g/dL Globulin 1.4 L (1.6-3.3) g/dL Microbiology - Last 24 Hours (Table) 07/10/24 11:28 Blood Culture - Final Blood Assessment and Plan (1) Rash Status: Acute Code(s): R21 - RASH AND OTHER NONSPECIFIC SKIN ERUPTION SNOMED Code(s): 768237294 (2) Disseminated zoster Status: Acute Code(s): B02.7 - DISSEMINATED ZOSTER SNOMED Code(s): 36996626 Plan: 1patient presented to hospital with generalized rash which is mostly vesicular/pustular crusting on the facial area and did have a biopsy done by the experimental rocket sled mechanic and reported positive for herpes zoster. 2patient did have swab obtained from the lesion which came back positive for VZV confirming the diagnosis 3patient has shown overall clinical improvement most of the rash has dried out, no new rash has been noticed plan is to finish therapy with oral Valtrex and close outpatient follow-up this was discussed with [facility] RESIDENT for admitting team working on discharge Dictation was produced using [employer] dictation software. please excuse any grammatical, word or spelling errors. Time with Patient: Less than 30
== END 2024-07-16 14:15 | disposition home or self-care (01) | DRG 866 ==
LOC: EC 09:34 → 1SOBS 14:05 → 4SSUR 16:18
PROVIDERS: ADMIT Internal Medicine; ATTEND Internal Medicine
DX: B02.7 Disseminated zoster (principal); D84.821 Immunodeficiency due to drugs; I50.32 Chronic diastolic (congestive) heart failure; T86.19 Other complication of kidney transplant; I13.0 Hypertensive heart and chronic kidney disease with heart failure and stage 1 through stage 4 chronic kidney disease, or unspecified chronic kidney disease; E83.42 Hypomagnesemia; I48.0 Paroxysmal atrial fibrillation; I73.9 Peripheral vascular disease, unspecified; N40.0 Benign prostatic hyperplasia without lower urinary tract symptoms; E78.2 Mixed hyperlipidemia; H40.9 Unspecified glaucoma; I25.10 Atherosclerotic heart disease of native coronary artery without angina pectoris; N18.2 Chronic kidney disease, stage 2 (mild); R73.03 Prediabetes; Y83.0 Surgical operation with transplant of whole organ as the cause of abnormal reaction of the patient, or of later complication, without mention of misadventure at the time of the procedure; Z98.61 Coronary angioplasty status; Z79.01 Long term (current) use of anticoagulants; Z79.52 Long term (current) use of systemic steroids; Z79.621 Long term (current) use of calcineurin inhibitor; Z79.624 Long term (current) use of inhibitors of nucleotide synthesis; Z79.82 Long term (current) use of aspirin; Z79.899 Other long term (current) drug therapy; Z87.891 Personal history of nicotine dependence; Z86.15 Personal history of latent tuberculosis infection; Z87.11 Personal history of peptic ulcer disease; Z83.3 Family history of diabetes mellitus; Z82.5 Family history of asthma and other chronic lower respiratory diseases; Z82.49 Family history of ischemic heart disease and other diseases of the circulatory system
CPT/HCPCS: 36415; 80048; 80053; 80197; 83605; 83735; 85025; 85610; 85730; 87040; 87798; 96361; 96365; 99291

== ENCOUNTER → 2024-10-30 | Outpatient (CLI) | payer MEDICARE, BC ==
--- NOTE | 2024-10-30 15:32 | CTL ---
EXAMINATION TYPE: CT Low Dose Lung DATE OF EXAM ORDERED: 10/30/2024 COMPARISON: Prior chest CT April 28, 2019 CLINICAL INDICATION: Male, 69 years old with history of Z12.2, F17.210; PHH, lung CA screening, Lung cancer screening, History of Smoking/tobacco use. TECHNIQUE: Low dose computed tomography scan was performed through the chest at 1 mm thick sections a nd reconstructed images in multiple planes at 1 mm and [address] DLP: 100.[address] CTDI: 2.6 mGy Automated exposure control for dose reduction was used. CT DIAGNOSTIC QUALITY: Satisfactory FINDINGS: Nodules: Occasional tiny nodule. Reference is 3 mm peripheral right upper lobe nodule image 118. Refe rence is 3 mm calcified peripheral nodule left lower lobe axial image 236. No greater than 6 mm nonca lcified pulmonary nodules. LUNGS: COPD: Severity: Mild Fibrosis: Severity: None Lymph nodes: None Other findings: Ascending aorta measures up to 3.7 cm in diameter RIGHT PLEURAL SPACE: Effusion: None Calcification: None Thickening: None Pneumothorax: None LEFT PLEURAL SPACE: Effusion: None Calcification: None Thickening: None Pneumothorax: None HEART: Heart Size: Normal Coronary Calcification: Severe three-vessel coronary artery calcification and/or stents Pericardial Effusion: None OTHER FINDINGS: Upper abdomen: Subcentimeter low dense lesion left hepatic lobe axial image 52 is too small to furthe r characterize but presumed benign Bony thorax: None Supraclavicular region: None Other: Small degree of bilateral subareolar gynecomastia is redemonstrated. IMPRESSION: A few scattered small nodules. No significant greater than [address] LUNG RAD AND CT CHEST RECOMMENDATION: Lung-Rad 2 Benign Appearance or Behavior: Continue annual sc reening with LDCT in 12 months. S Modifier (other clinically significant findings): None [facility], , 10/30/2024 3:30 PM
== END | disposition home or self-care (01) ==
LOC: RADCTMAIN 08:35
PROVIDERS: ATTEND Internal Medicine
DX: Z12.2 Encounter for screening for malignant neoplasm of respiratory organs (principal); F17.210 Nicotine dependence, cigarettes, uncomplicated; R91.8 Other nonspecific abnormal finding of lung field
CPT/HCPCS: 71271